=== PATIENT | male | born 1940 | race Caucasian/White ===

== ENCOUNTER 2021-02-17 11:36 | Outpatient (REF) | payer MEDICARE, SELFPAY ==
[2021-02-17 15:34] LABS: HCT 49.4 % (40.0-50.0); HGB 15.9 g/dL (13.5-17.5); MCH 29.7 pg (27.0-33.0); MCHC 32.2 % (32.0-36.0); MCV 92.3 fL (80-95); MPV 10.9 fL (8.0-11.0); Platelet Count 248 10^3/uL (130-400); RBC 5.35 10^6/uL (4.36-5.78); RDW 13.8 % (11.8-14.1); RDW-SD 46.8 fL; WBC 6.06 10^3/uL (4.4-10.8)
[2021-02-17 16:09] LABS: Anion Gap 9.9 mmol/L (3-11); BUN 16 mg/dL (7-18); CO2 24.1 mmol/L (21.0-32.0); Chloride 106 mmol/L (98-107); Glucose 100 mg/dL (74-106); Potassium 4.4 mmol/L (3.5-5.1); Sodium 140 mmol/L (136-145)
== END 2021-02-17 11:37 | disposition home or self-care (01) ==
LOC: NCHCN 11:36
PROVIDERS: PCP Internal Medicine; Visit Provider Family Medicine
DX: E66.3 Overweight (principal); Z00.00 Encounter for general adult medical examination without abnormal findings; Z79.01 Long term (current) use of anticoagulants
CPT/HCPCS: 80048; 85027

== ENCOUNTER 2022-02-18 13:21 | Outpatient (REF) | payer MEDICARE, SELFPAY ==
[2022-02-18 14:31] LABS: HCT 48.8 % (40.0-50.0); HGB 16.4 g/dL (13.5-17.5); MCH 31.4 pg (27.0-33.0); MCHC 33.6 % (32.0-36.0); MCV 94 fL (80-95); MPV 11.5 fL (8.0-11.0); Platelet Count 200 10^3/uL (130-400); RBC 5.22 10^6/uL (4.36-5.78); RDW 13.7 % (11.8-14.1); RDW-SD 47.8 fL; WBC 4.57 10^3/uL (4.4-10.8)
[2022-02-18 14:49] LABS: Anion Gap 6.9 mmol/L (3-11); BUN 16 mg/dL (7-18); CO2 27.1 mmol/L (21.0-32.0); CREATININE 1.1 mg/dL (0.70-1.30); Calcium 9.5 mg/dL (8.5-10.1); Chloride 104 mmol/L (98-107); Estimated GFR 66.61 (mL/min/1.73m2); Glucose 117 mg/dL (74-106); Potassium 4.4 mmol/L (3.5-5.1); Sodium 138 mmol/L (136-145)
== END 2022-02-18 13:22 | disposition home or self-care (01) ==
LOC: NCHCN 13:21
PROVIDERS: PCP Internal Medicine; Visit Provider Family Medicine
DX: Z95.2 Presence of prosthetic heart valve (principal); Z79.01 Long term (current) use of anticoagulants
CPT/HCPCS: 80048; 85027

== ENCOUNTER 2022-08-17 10:13 | Outpatient (REF) | payer MEDICARE, SELFPAY ==
[2022-08-17 16:04] LABS: HCT 48.4 % (40.0-50.0); HGB 16.1 g/dL (13.5-17.5); MCH 31.4 pg (27.0-33.0); MCHC 33.3 % (32.0-36.0); MCV 94 fL (80-95); MPV 11.6 fL (8.0-11.0); Platelet Count 153 10^3/uL (130-400); RBC 5.13 10^6/uL (4.36-5.78); RDW-SD 48.8 fL; WBC 2.55 10^3/uL (4.4-10.8)
[2022-08-17 16:47] LABS: Anion Gap 8.3 mmol/L (3-11); BUN 20 mg/dL (7-18); CO2 26.7 mmol/L (21.0-32.0); CREATININE 1.1 mg/dL (0.70-1.30); Calcium 9.2 mg/dL (8.5-10.1); Chloride 105 mmol/L (98-107); Estimated GFR 66.61 (mL/min/1.73m2); Glucose 128 mg/dL (74-106); Potassium 4.6 mmol/L (3.5-5.1); Sodium 140 mmol/L (136-145)
== END 2022-08-17 10:14 | disposition home or self-care (01) ==
LOC: NCHCN 10:13
PROVIDERS: PCP Internal Medicine; Visit Provider Family Medicine
DX: K04.7 Periapical abscess without sinus (principal); Z00.00 Encounter for general adult medical examination without abnormal findings; Z79.01 Long term (current) use of anticoagulants; Z95.2 Presence of prosthetic heart valve
CPT/HCPCS: 80048; 85027

== ENCOUNTER 2023-07-19 08:15 | Emergency (ER) | payer MEDICARE, SELFPAY ==
[2023-07-19] VITALS (66 sets, daily range): BP systolic 109–186; BP diastolic 50–88; PULSE 77–104; RESP 13–30; TEMP 36.1–36.7; O2SAT 95–100
--- NOTE | 2023-07-19 08:15 | RT.EKG_ITS ---
APPROVED REPORT Exam: Resting ECG Reason for Exam: palpitations Patient Location: E HR:100 bpm ECG Measurements Heart Rate 100 AXIS DC 200 P -43 QRSd 81 QRS 12 QT 328 T 123 QTc 421 Conclusion Sinus rhythm...normal P axis, V-rate 60- 99 Atrial premature complex...SV complex w/ short R-R interval sinus tachycardia, normal axis, normal intervals, st depressions and t wave inversions lateral leads
--- NOTE | 2023-07-19 08:30 | DI.RAD_ITS ---
Exam(s) XR CHEST 2V PA LATERAL EXAM: XR CHEST 2V PA LATERAL CLINICAL HISTORY: dyspnea on exertion, hx aortic valve replacement TECHNIQUE: 2D digital imaging was performed. Two views. COMPARISON: No exams were available for comparison FINDINGS: HEART: Normal size. Aorta: Not dilated. Mildly tortuous. Valve prosthesis. PULMONARY VASCULATURE: Normal. LUNGS: Clear. PLEURAL SPACE: No pleural effusion or pneumothorax. Calcified pleural plaques. BONE:Sternal wires. Degenerative changes in the spine. No compression fractures. Soft tissues: Unremarkable. IMPRESSION: No acute abnormality. DATA REPOSITORY: RADIATION DOSE DELIVERED:
--- NOTE | 2023-07-19 08:38 | ED.GENADUL_ITS ---
Discharge Plan Disposition Patient Disposition: Home Condition: Improving Discharge Details Clinical Impression: Anemia, Upper GI bleed Primary Care Provider: Rafiq El ED Provider: Terry Hanley Home Meds and New Rx's Prescriptions: New pantoprazole 40 mg tablet,delayed release (DR/EC) 40 mg PO DAILY Qty: 30 0RF No Action warfarin 5 mg tablet 5 mg PO Q OTHER DAY Rx Instructions: M//F 7mg Mcnulty/T//Sa 5mg Discharge Instructions Instructions: Gastrointestinal Bleeding (ED), Anemia (ED) Additional Instructions: Please follow-up with your primary care physician as well as gastroenterology. Return to the emergency department for any worsening symptoms HPI General Date/Time Provider Initiated Documentation: 07/19/23 08:28 . 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 Denies leg pain or swelling, no history of thromboembolic disease Related Data Home Medications Medication Instructions Recorded Confirmed warfarin 5 mg tablet 5 mg PO Q OTHER DAY 06/30/23 07/19/23 pantoprazole 40 mg tablet,delayed 40 mg PO DAILY #30 tabs 07/19/23 release Previous Rx's Medication Instructions Recorded pantoprazole 40 mg tablet,delayed 40 mg PO DAILY #30 tabs 07/19/23 release Allergies Allergy/AdvReac Type Severity Reaction Status Date / Time PEACH SKINS AdvReac Other (See Uncoded 07/19/23 10:12 Comment) General Stated Complaint: Chest Pain WILBERT: 3 Review of Systems Narrative: Review of Systems Constitutional: negative Eyes: negative ENT: negative Cardiovascular: Exertional dyspnea Respiratory: negative Gastrointestinal: negative : negative Musculoskeletal: negative Skin: negative Neurologic: negative Psych: negative Exam Narrative Exam Narrative: Physical Examination General: alert, awake, cooperative, resting comfortably, no acute distress HEENT: normocephalic, atraumatic; PERRL, EOM intact, conjunctiva normal; no nasal discharge; moist mucous membranes, oral and pharyngeal mucosa normal, tolerating secretions Neck: supple, trachea midline; full ROM Chest: normal to inspection Respiratory: normal respiratory effort, speaking in full sentences, clear to auscultation, no wheezing, rales or rhonchi Cardiac: regular rate, regular rhythm, S1S2 intact, no murmurs rubs or gallops GI: abdomen soft, non-tender, non-distended; no palpable mass or hepatosplenomegaly Skin: no lesions, rashes or trauma appreciated Neuro: AAOx3, normal speech, moving all extremities Extremities: Mild edema to bilateral ankles nonpitting Psych: Appropriate mood and affect Course Vital Signs Vital signs: Vital Signs Pulse 101 H 07/19/23 08:24 Blood Pressure 154/77 H 07/19/23 08:24 Pulse Oximetry 100 07/19/23 08:24 Pulse 101 H 07/19/23 08:24 Blood Pressure 154/77 H 07/19/23 08:24 Blood Pressure Position Sitting 07/19/23 08:24 Pulse Oximetry 100 07/19/23 08:24 Oxygen Delivery Method Room Air 07/19/23 08:24 Oxygen Flow Rate 0 07/19/23 08:24 Medical Decision Making 82-year-old male history of aortic valve replacement mechanical, 35 years ago presents with exertional dyspnea over the last couple of weeks, improved with rest, denies orthopnea, mild bilateral ankle swelling noted on examination, no history of thromboembolic disease, no chest pain or shortness of breath no nausea no vomiting. Patient did have some left shoulder discomfort with activity over the last couple of days. Consider ACS versus CHF versus mechanical valve dysfunction low suspicion for PE or aortic pathology lower suspicion for pneumonia or pneumothorax. Will obtain basic labs troponin BNP, chest x-ray, echocardiogram in department, EKG sinus tachycardia normal axis with ST segment depressions and T wave inversions laterally. Disposition pending reassessment and results 11: 01 patient noted to be anemic to 6.4. Patient does endorse some dark bowel movement over the last few days. Consider slow upper GI bleed. Patient sent for CT abdomen pelvis which showed diverticulosis without definitive source of bleeding, patient will likely benefit from outpatient GI evaluation for endoscopy. Will transfuse 2 units PRBC, patient consent obtained at bedside. Pending bedside echo and reassessment after transfusion consider home with close follow-up 14: 54 resting comfortably no acute distress. Vital signs greatly improved. Coloration greatly improved. No abdominal pain nausea or vomiting. Patient be given referral for GI follow-up. Will start patient on PPI. 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 ear (Acute) Sensorineural hearing loss (SNHL) of right ear with restricted hearing of left ear (Acute) Sensorineural hearing loss of combined sites, bilateral (Acute 08/03/16) Medical History (Updated 07/19/23 @ 14:56 by Terry Hanley MD) diverticulosis adenoma colon polyp Prosthetic Aortic Valve Overweight Hearing loss bilat Surgical History (Updated 01/12/13 @ 13:10 by Gunjan Desai LPN) redo of aortic valve hernia/hydrocele repair Appendectomy Aortic valve replaced Social History Smoking/Tobacco Use Status: Current-Occasional Smoking risk assessment performed?: Yes Drug use: Never Housing: house Do you feel safe at home: Yes Do you feel safe in your relationship?: Yes
[2023-07-19] MEDS: Aspirin 81 MG CHEW 324 MG CH (08:50)
[2023-07-19 08:51] LABS: Abs Immature Grans 0.06 10^3/uL (0.0-0.06); Absolute Basophil Count 0.01 10^3/uL (0.0-0.2); Absolute Lymphocyte Count 0.92 10^3/uL (1.2-3.4); Absolute Monocyte Count 0.12 10^3/uL (0.1-0.8); Basophils % 0.4 %; HCT 21.4 % (40.0-50.0); Immature Grans % 2.4 %; Lymphocytes % 36.7 %; MCH 31.2 pg (27.0-33.0); MCHC 29.9 % (32.0-36.0); MCV 104 fL (80-95); MPV 10.8 fL (8.0-11.0); Monocytes % 4.8 %; Neutrophils % 55.7 %; Nucleated RBC 0.8 % (0.0-0.3); RBC 2.05 10^6/uL (4.36-5.78); RDW 17.5 % (11.8-14.1); RDW-SD 65.9 fL; WBC 2.51 10^3/uL (4.4-10.8)
[2023-07-19 09:03] LABS: INR 3.7 (0.9-1.1); PTT Activated 31.2 sec (23.6-32.8); Prothrombin Time 33.3 sec (9.1-11.1)
[2023-07-19 09:06] LABS: Anisocytosis 1+; Diff Comment Diff Reviewed; HGB 6.4 g/dL (13.5-17.5)
[2023-07-19 09:07] LABS: Hypochromasia 1+; Platelet Count 97 10^3/uL (130-400); Polychromasia Present
[2023-07-19 09:10] LABS: ALT 20 U/L (16-63); AST 21 U/L (15-37); Albumin 3.5 g/dL (3.4-5.0); Alkaline Phosphatase 55 U/L (46-116); Anion Gap 8.8 mmol/L (3-11); BUN 39 mg/dL (7-18); Bilirubin, Total 0.7 mg/dL (0.2-1.0); CO2 23.2 mmol/L (21.0-32.0); CREATININE 1.4 mg/dL (0.70-1.30); Calcium 8.4 mg/dL (8.5-10.1); Chloride 109 mmol/L (98-107); Estimated GFR 49.56 (mL/min/1.73m2); Glucose 126 mg/dL (74-106); NT-proBNP 294 pg/mL (<300); Sodium 141 mmol/L (136-145); Total Protein 6.4 g/dL (6.4-8.2)
[2023-07-19] MEDS: Omnipaque 350 MG/ML 100 ML BTL IJ (09:43)
[2023-07-19] MEDS: Normal Saline - Diluent 50 ML VIAL IJ (09:44)
--- NOTE | 2023-07-19 09:50 | DI.CT_ITS ---
Exam(s) CT ABDOMEN PELVIS W EXAM: CT ABDOMEN PELVIS W CLINICAL HISTORY: gi bleed on coumadin. TECHNIQUE: Imaging Protocol: Axial computed tomography images with coronal and sagittal reformatted images were created and reviewed CONTRAST MATERIAL: Intravenous: Omnipaque 350 Contrast volume:100 ml Oral: yes / COMPARISON: No exams were available for comparison FINDINGS: ABDOMEN and PELVIS: Lung Bases: No acute findings. Calcified pleural plaques. Mild peripheral fibrotic changes Liver: Normal density. No suspicious mass. Gallbladder and biliary tract: No radiodense calculus. No biliary dilation. Pancreas: Normal density. No abnormal calcifications or inflammatory process. No evidence of mass. Spleen: Normal. Kidneys: Normal size, contour and axis. No radiodense stones. No obstructive uropathy. No suspicious masses seen. Adrenal glands: No masses seen. Vasculature: Abdominal aorta non-dilated. Atherosclerotic changes. Soft tissues: Small bilateral fatty containing inguinal hernias. Tiny fatty containing umbilical hernia. Bladder: No gross wall thickening. No calculi.No focal mass. Bilateral bladder diverticula. Bowel: No obstruction. No bowel wall thickening. Appendix normal.Mild diverticulosis. No evidence diverticulitis. Moderate quantity of stool, greatest in rectum. No visible GI bleed.. Peritoneal cavity: No ascites. No focal collection. No mesenteric inflammatory response. Bones: Degenerative changes in the spine. Reproductive organs: Prostate mildly enlarged Lymph nodes: No pathologically enlarged lymph nodes. IMPRESSION:: Diverticulosis. No evidence of diverticulitis. No source of GI bleed visible. RADIATION DOSE DELIVERED: 929.73mGy.cm Total DLP DATA REPOSITORY: All CT scans at this facility are submitted to the National Radiology Data Registry (NRDR) Dose Index Registry (DIR) with the [employer] (ACR). RADIATION OPTIMIZATION: All CT scans at this facility use at least one of these dose optimization te chniques: automated exposure control; mA and/or kV adjustment per patient size (includes targeted exa ms where dose is matched to clinical indication); or iterative reconstruction.
[2023-07-19] MEDS: Pantoprazole 40 MG VIAL IVP (10:26)
--- NOTE | 2023-07-19 11:00 | DI.US_ITS ---
APPROVED REPORT EXAM: Comprehensive 2D, Doppler, and color-flow Echocardiogram Patient Location: ER Room/Bed: 7 Biometrics Experimentalist: Hudson García RDCS (AE) Indications: Dyspnea on exertion, hx of aortic valve replacement Other Information Technically limited study due to body habitus. Conclusion Normal left ventricular wall thickness chamber size and systolic function. EF is 60%. No segmental wall motion abnormalities are noted Right ventricle is not well-visualized Both atria are moderately dilated There is a mechanical aortic valve prosthesis. There is trace to mild aortic regurgitation. Mean gr adient is 21 mmHg Mitral annular calcification. Mild mitral regurgitation Dilated aortic root and ascending aorta Wall motion Left Ventricle The left ventricle is grossly normal size. Unable to perform measurements due to the vertical orienta tion of the ventricle. The left ventricular systolic function is normal. The left ventricular ejectio n fraction is within the normal range. Unable to assess LV wall thickness. There is no ventricular se ptal defect visualized. LVEF is 60%. Right Ventricle Right ventricle is not well visualized. Right ventricular systolic function could not be assessed. Atria Left atrium is moderately dilated. Right atrium is moderately dilated. The interatrial septum is inta ct with no evidence for an atrial septal defect. Aortic Valve Mechanical aortic valve is present. Trace to mild aortic regurgitation. Mitral Valve Moderate mitral annular calcification. No evidence of mitral valve stenosis. Mild mitral regurgitatio n. Tricuspid Valve The tricuspid valve is normal in structure. There is no tricuspid valve stenosis. Trace tricuspid reg urgitation. Unable to assess PA pressure. Pulmonic Valve Pulmonic valve is not well visualized. There is no pulmonic valvular regurgitation. Great Vessels Aortic root is moderately dilated. The ascending aorta is dilated. 4.53 cm Aortic arch is not well vi sualized. IVC is normal in size and collapses >50% with inspiration. Pericardium There is no pericardial effusion. 2D Dimensions Ao Root d 4.02 cm M: 3.1 - 3.7 Ao Asc Diam d 4.53 cm M: 2.6 - 3.4 M-Mode TAPSE 1.81 cm (M/F) >1.7 Auto EF LV EDV A4C 129.3 mL LV EDV A2C 102.0 mL LV EDV BP 115.2 mL LV ESV A4C 54.0 mL LV ESV A2C 41.3 mL LV ESV BP 46.2 mL LVEF(%) A4C 58.3 % LVEF(%) A2C 59.5 % LVEF(%) BP 59.9 % LV SV A4C 75.4 ml LV SV A2C 60.7 ml LV SV BP 69.1 ml LV CO A4C 6.7 L/min LV CO A2C 5.3 L/min LV CO BP 6.0 L/min HR A4C 88.24 BPM HR A2C 87.38 BPM LV EDV Index (BP) LA Volume LA Length A4C 4.9 cm LA Length A2C 6.2 cm LA Area A4C s 18.39 cm2 LA Area A2C s 17.45 cm2 LA Vol A4C A-L 58.50 mL LA Vol A2C A-L 41.46 mL LA Vol Biplane A-L 55.5 mL LA Vol/BSA A4C A-L LA Vol/BSA A2C A-L LA Vol/BSA BP A-L 27.1 mL/m2 LA Vol A4C MOD 48.0 mL LA Vol A2C MOD 40.6 mL LA Vol BP MOD 48.9 mL RA Volume RA Area A4C 16.4 cm2 RA ESV A4C (A-L) 45.0mL RA Vol/BSA A4C A-L RA Length A4C 5.0 cm RA ESV A4C (MOD) 44.4mL LV Diastology MV E' medial 0.082 (>0.07 m/s) MV E Vmax 1.25 (0.4-1.3 m/s) MV E/E' MED 15.34 (<14) MV A Vmax 1.30 (0.4-1.3 m/s) MV E' lateral 0.092 (>0.1 m/s) E/A Ratio 1.0 MV E/E' LAT 13.57 (<14) MV E' Average 0.087 m/s MV E/E'(average) 14.40 Aortic Valve AoV Vmax 3.09 m/s LVOT Vmax 1.11 m/s AoV Peak Grad 38.2 mmHg LVOT Peak Grad 4.9 mmHg AoV Area (Vmax) 1.38 cm2 LVOT VTI 0.269 m AoV VTI 0.702 m LVOT Mean Grad 2.9 mmHg AoV Mean Wil. 2.16 m/s LVOT SV 102.95 mL AoV Mean Grad 21.4 mmHg LVOT Diam s 2.20 cm AoV Area (VTI) 1.47 cm2 Velocity Ratio 0.36 Mitral Valve MV DT 258 (160-240 msec) MV Vmax TIPS 1.39 m/s MV Mean Grad 4.3 (<2mmHg) MV VTI 0.434 m Pulmonary Valve RVOT Vmax 0.65 m/s RVOT Peak Gr. 1.7 mmHg RVOT VTI 0.127 m RVOT Mean Gr. 0.9 mmHg
[2023-07-19 11:51] LABS: Troponin I < 50 ng/L (< or =60)
--- NOTE | 2023-07-20 11:37 | NUR.NOTE ---
Addendum entered by Amanda Arboleda 07/20/23 12:59: Patients called stating that she could not get an appt with [facility] without referral. I spoke with Dr. Millan and he does want pt followed up there and next week if possible. I had DI send all the imaging done on 07/19/23 to [facility] for the referral. I faxed to [facility] the provider note, labs, xray and CT reports, and echo report. It was marked URGENT. I called the back and she is aware that this has been done. [facility] Urgent request fax number [phone] Original Note: Accessed chart, called stating cannot get in to [facility] without referral. Will talk to Dr Millan regarding this. Nursing Note:
== END 2023-07-19 15:49 | disposition home or self-care (01) ==
PROVIDERS: Emergency Provider Emergency Medicine; PCP Family Medicine
DX: K92.2 Gastrointestinal hemorrhage, unspecified (principal); D64.9 Anemia, unspecified; M25.512 Pain in left shoulder; Z86.79 Personal history of other diseases of the circulatory system; R06.09 Other forms of dyspnea; R22.43 Localized swelling, mass and lump, lower limb, bilateral
CPT/HCPCS: 80053; 86850; 86900; 86901; 86920; 93005; 93306; 96374; 99285; 71046; 74177; 83880; 84484; 85025; 85610; 85730; 93010; 99283; J2470; J3490; P9016

== ENCOUNTER 2023-07-21 18:46 | Inpatient (IN) | payer MEDICARE, SELFPAY ==
[2023-07-21] VITALS (68 sets, daily range): BP systolic 113–186; BP diastolic 54–142; PULSE 83–119; RESP 12–30; TEMP 36.3–37.1; O2SAT 94–997
--- NOTE | 2023-07-21 18:15 | RT.EKG_ITS ---
APPROVED REPORT Exam: Resting ECG Reason for Exam: Neck, Jaw pain Patient Location: E HR:101 bpm ECG Measurements Heart Rate 101 AXIS SD 198 P -41 QRSd 82 QRS 16 QT 320 T 203 QTc 415 Conclusion Sinus tachycardia...rate> 99 Atrial premature complex...SV complex w/ short R-R interval Repol abnrm suggests ischemia, diffuse leads...ST-T neg, ant/lat/inf sinus tachycardia, normal axis, normal intervals, ST segment depressions II aVF, V3-V6, with elevatio n aVR
--- NOTE | 2023-07-21 18:45 | DI.RAD_ITS ---
Exam(s) XR PORTABLE CHEST AP EXAM: XR PORTABLE CHEST AP CLINICAL HISTORY: Chest Pain TECHNIQUE: 2D digital imaging was performed of the chest. One image was obtained. An AP view was ob tained. COMPARISON: CR XR CHEST 2V PA LATERAL from 07/19/2023 FINDINGS: MEDIASTINUM: Normal. HEART: There is an aortic valve prosthesis in place. PULMONARY VASCULATURE: Normal. LUNGS: Clear. PLEURAL SPACE: No pleural effusion or pneumothorax. Calcified pleural and diaphragmatic plaques are p resent. BONE:Within normal limits for the patient's age. Sternal wires are present. OTHER FINDINGS:Normal. IMPRESSION: No acute pulmonary findings. DATA REPOSITORY: RADIATION DOSE DELIVERED:
--- NOTE | 2023-07-21 18:45 | RT.EKG_ITS ---
APPROVED REPORT Exam: Resting ECG Reason for Exam: Posterior Patient Location: E HR:102 bpm ECG Measurements Heart Rate 102 AXIS MN 198 P 104 QRSd 79 QRS 38 QT 341 T 2 QTc 445 Conclusion Sinus tachycardia...rate> 99 sinus tachycardia, normal axis, consider st seg elevations III aVR, and depressions aVL
--- NOTE | 2023-07-21 18:53 | ED.GENADUL_ITS ---
Discharge Plan Disposition Patient Disposition: Admit to [facility] Condition: Stable Discharge Details Clinical Impression: Anemia, Upper GI bleed Admit Date/Time: 07/21/23 22:33 Admit Provider: Kian Stacy Attending Provider: Kian Stacy Primary Care Provider: Rafiq El ED Provider: Jeannie Stratton Discharge Data Discharge Date/Time-TO BE ENTERED AT DEPARTURE: 07/22/23 00:50 HPI General Mode of arrival: EMS . Date/Time Provider Initiated Documentation: 07/21/23 18:46 . Limitations to Documentation: no limitations . Information obtained by: patient, RN notes reviewed and old records reviewed . HPI Narrative: 82-year-old male presents to the ER via EMS with chief complaint of left shoulder pain with exertion that radiates up into his left jaw that he describes as tooth pain for the last 2 weeks he was seen here 2 days ago for the same and was noted to have anemia with a hemoglobin of 6 received 2 units of blood. Patient is on Coumadin he reports that laying down makes his symptoms get better. He does take warfarin does have a history of a prosthetic aortic valve, diverticulosis and hearing loss, prior to arrival EMS got a twelve-lead which showed some ST depressions in V4 through V6 that were worse after exertion. Related Data Home Medications Medication Instructions Recorded Confirmed warfarin 5 mg tablet 5 mg PO Q OTHER DAY 06/30/23 07/21/23 pantoprazole 40 mg tablet,delayed 40 mg PO DAILY #30 tabs 07/19/23 07/21/23 release Previous Rx's Medication Instructions Recorded pantoprazole 40 mg tablet,delayed 40 mg PO DAILY #30 tabs 07/19/23 release Allergies Allergy/AdvReac Type Severity Reaction Status Date / Time PEACH SKINS AdvReac Other (See Uncoded 07/19/23 10:12 Comment) General Stated Complaint: SOB WILBERT: 3 Review of Systems All systems reviewed & are unremarkable except as noted in HPI and below Cardiovascular Cardiovascular: Reports chest pain and Reports radiating jaw, neck or arm pain Gastrointestinal Gastrointestinal: Denies abdominal pain, Reports melena, Reports constipation and Denies vomiting Musculoskeletal Musculoskeletal: Reports back pain Exam Narrative Exam Narrative: Constitutional: Alert and oriented x3. Appears stated age. Normal body habitus. Head: Normocephalic, no trauma. Eyes: Pupils PERRL, Red reflex noted, EOM's intact. Eyelids symmetrical without lesions, discharge, or swelling. ENT: Bilateral TM's WNL, External ear normal to inspection, no mastoid TTP, swelling, or erythema, Nasal turbinates WNL, no nasal discharge. Normal dentition, Posterior pharynx WNL, no exudate. Chest: RRR, Normal S1, S2, distal pulses intact. Resp: Lungs clear to auscultation bilaterally, no wheezes, rales, or rhonchi. Abdomen: Soft, non-distended, Normoactive bowel sounds all 4 quads. Musculoskeletal: Unable to assess gait moves all 4 extremities without difficulty. Skin: No suspicious rashes or lesions. Capillary refill less than 2 sec. Neurologic: Cranial nerves II-XII intact. Alert and oriented x 3. Motor: No deficits noted. Sensory: Intact bilaterally all 4 extremities. Hematologic/Lymphatic: No ecchymosis, no lymphadenopathy. Course Vital Signs Vital signs: Vital Signs Temperature 36.3 C L 07/21/23 18:47 Pulse 107 H 07/21/23 18:47 Respiratory Rate 16 07/21/23 18:47 Blood Pressure 186/142 H 07/21/23 18:47 Pulse Oximetry 98 07/21/23 18:47 Temperature 36.3 C L 07/21/23 18:47 Temperature Source Oral 07/21/23 18:47 Pulse 107 H 07/21/23 18:47 Respiratory Rate 16 07/21/23 18:47 Blood Pressure 186/142 H 07/21/23 18:47 Pulse Oximetry 98 07/21/23 18:47 Oxygen Delivery Method Room Air 07/21/23 18:47 Oxygen Flow Rate 0 07/21/23 18:47 Pain Level 4 07/21/23 18:47 Procedures Stool Hemoccult Procedural Steps Taken: stool placed in appropriate test area, developer placed on stool and control areas and controls appropriately positive and negative Hemoccult result: positive Medical Decision Making 82-year-old male presents to the ER via EMS with chief complaint of left shoulder pain with exertion that radiates up into his left jaw that he describes as tooth pain for the last 2 weeks he was seen here 2 days ago for the same and was noted to have anemia with a hemoglobin of 6 received 2 units of blood. Patient is on Coumadin he reports that laying down makes his symptoms get better. He does take warfarin does have a history of a prosthetic aortic valve, diverticulosis and hearing loss, prior to arrival EMS got a twelve-lead which showed some ST depressions in V4 through V6 that were worse after exertion. EKG was reviewed by myself and Dr. Arik Martinez ER attending, significant ischemic ST depression changes noted to V4 V5 V6 lead II lead II and aVF. ST elevation in aVR will get a posterior EKG. Posterior EKG shows sinus tachycardia no significant ST elevation or abnormality I do suspect lateral ischemia. Patient does not qualify for thrombolysis due to being on warfarin usually takes it at night has not taken it yet today did take it yesterday. He is also hypertensive upon arrival. EKG is faxed to [facility] will speak with cardiology for possible patient transferred. 324 mg aspirin ordered. 1903: [facility] Transfer center contacted, will consider nitro however there is st depressions in II, III and AVF and inferior leads. Hbg is 6.1, Hct 19.[address] [facility] notified that GI will also most likley be needed. Guaiac positive, no grossly bloody stool noted no active bleeding noted. Does have some soft brown stool, he did endorse black dark stools. 1928: Dr. Coco Mejia she is concerned for multilevel disease or left main disease, however because he is having acute GI bleeding she recommends GI consult first and that this may be due to the anemia. PRBC 2 units ordered, GI at [facility] paged. 1942: Dr. Avila with GI called, she recommends Iron studies and does not recommend urgent or emergent scoping at this time, she does not give any other recommendations at this time. 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 Will page Hospitalist 2032: Spoke with Dr. Zambrano who recommends discuss with [facility] Hospitalist team due to high risk patient who may require heparin, and specialty scope. He reports surgery here most likely will not touch him. 2043: [facility] transfer center contacted again 2156: [facility] transfer center called, spoke with Hospitalist Kay, he states that if he is not actively bleeding, is stable that at this time he can be managed here, will re-discuss with Dr. Laguerre. 2211: Spoke with Dr. Zambrano again who agrees to accept patient for admission. Patient and family, they would rather be transferred to a tertiary care center for GI. At this time there is nothing other than consult with GI specialist that would be required tonight. Discussed at length with patient and family plan of care, at this time patient is hemodynamically stable and receiving blood products. This text was generated using [employer] system, please disregard any oddities of phrase or missp ellings. Medical Records Medical records reviewed: Yes I reviewed the patient's medical records. Medical records narrative: CR XR CHEST 2V PA LATERAL 07/19/2023 9:31 AM FINDINGS: Tubes, catheters and devices: Monitoring wires are present. Lungs: No consolidation. No vascular congestion. Pleural spaces: Calcified pleural plaques are noted bilaterally. No pleural effusion. No pneumothorax. Heart/Mediastinum: Mild cardiomegaly. Aortic valve replacement noted. Bones/joints: Sternotomy wires noted. IMPRESSION: No acute cardiopulmonary abnormality. Thank you for allowing us to participate in the care of your patient. Dictated and Authenticated by: Chong Ash MD Lab Data Lab results reviewed: Yes I reviewed the patient's lab results. Labs: Laboratory Tests Range/Units 07/21/23 07/21/23 07/21/23 18:50 18:52 19:28 WBC (4.4-10.8) 10^3/uL 3.86 L RBC (4.36-5.78) 10^6/uL 1.93 L Hgb (13.5-17.5) g/dL 6.1 L* Hct (40.0-50.0) % 19.7 L* MCV (80-95) fL 102 H MCH (27.0-33.0) pg 31.6 MCHC (32.0-36.0) % 31.0 L RDW (11.8-14.1) % 18.7 H Plt Count (130-400) 10^3/uL 94 L MPV (8.0-11.0) fL 10.7 Immature Gran % % 2.1 Neutrophils % % 57.2 Lymphocytes % % 36.0 Monocytes % % 4.4 Eosinophils % % 0.3 Basophils % % 0.0 Nucleated RBC % (0.0-0.3) % 1.0 H Absolute Neutrophils (1.2-6.7) 10^3/uL 2.21 Absolute Lymphocytes (1.2-3.4) 10^3/uL 1.39 Absolute Monocytes (0.1-0.8) 10^3/uL 0.17 Absolute Eosinophils (0.0-0.7) 10^3/uL 0.01 Absolute Basophils (0.0-0.2) 10^3/uL 0.00 RBC Morphology See Below Polychromasia Present Hypochromasia 2+ PT (9.1-11.1) sec 40.0 H INR (0.9-1.1) 4.5 H* APTT (23.6-32.8) sec 30.8 Sodium (136-145) mmol/L 144 Potassium (3.5-5.1) mmol/L 4.3 Chloride (98-107) mmol/L 111 H Carbon Dioxide (21.0-32.0) mmol/L 21.6 Anion Gap (3-11) mmol/L 11.4 H BUN (7-18) mg/dL 45 H Creatinine (0.70-1.30) mg/dL 1.4 H Est GFR (CKD-EPI 2020) (mL/min/1.73m2) 49.56 Glucose (74-106) mg/dL 118 H Calcium (8.5-10.1) mg/dL 8.4 L Magnesium (1.8-2.4) mg/dL 2.0 Iron (65-175) ug/dL TIBC (250-450) ug/dL Transferrin % Sat (20-55) % Total Bilirubin (0.2-1.0) mg/dL 0.6 AST (15-37) U/L 16 ALT (16-63) U/L 15 L Alkaline Phosphatase (46-116) U/L 52 Troponin I (< or =60) ng/L < 50 Total Protein (6.4-8.2) g/dL 5.7 L Albumin (3.4-5.0) g/dL 3.2 L Folate (8.6-20.0) ng/mL ABO/Rh B Positive Antibody Screen NEGATIVE Crossmatch See Detail Range/Units 07/21/23 07/21/23 20:00 21:35 WBC (4.4-10.8) 10^3/uL RBC (4.36-5.78) 10^6/uL Hgb (13.5-17.5) g/dL Hct (40.0-50.0) % MCV (80-95) fL MCH (27.0-33.0) pg MCHC (32.0-36.0) % RDW (11.8-14.1) % Plt Count (130-400) 10^3/uL MPV (8.0-11.0) fL Immature Gran % % Neutrophils % % Lymphocytes % % Monocytes % % Eosinophils % % Basophils % % Nucleated RBC % (0.0-0.3) % Absolute Neutrophils (1.2-6.7) 10^3/uL Absolute Lymphocytes (1.2-3.4) 10^3/uL Absolute Monocytes (0.1-0.8) 10^3/uL Absolute Eosinophils (0.0-0.7) 10^3/uL Absolute Basophils (0.0-0.2) 10^3/uL RBC Morphology Polychromasia Hypochromasia PT (9.1-11.1) sec INR (0.9-1.1) APTT (23.6-32.8) sec Sodium (136-145) mmol/L Potassium (3.5-5.1) mmol/L Chloride (98-107) mmol/L Carbon Dioxide (21.0-32.0) mmol/L Anion Gap (3-11) mmol/L BUN (7-18) mg/dL Creatinine (0.70-1.30) mg/dL Est GFR (CKD-EPI 2020) (mL/min/1.73m2) Glucose (74-106) mg/dL Calcium (8.5-10.1) mg/dL Magnesium (1.8-2.4) mg/dL Iron (65-175) ug/dL 28 L TIBC (250-450) ug/dL 244 L Transferrin % Sat (20-55) % 11 L Total Bilirubin (0.2-1.0) mg/dL AST (15-37) U/L ALT (16-63) U/L Alkaline Phosphatase (46-116) U/L Troponin I (< or =60) ng/L 53 Total Protein (6.4-8.2) g/dL Albumin (3.4-5.0) g/dL Folate (8.6-20.0) ng/mL 12.0 ABO/Rh Antibody Screen Crossmatch ECG Data Prior ECG tracings: available for review Quality:[facility] Health Related Social Needs: No Data to Display PFSH All Active Problems H/O mechanical aortic valve replacement (Acute) Discharge planning issues (Acute) 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) Diverticulosis of colon without diverticulitis (Chronic) Acute blood loss anemia (Acute) Exertional chest pain (Acute) Upper GI bleed (Acute) Anemia (Chronic) 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 ear (Acute) Sensorineural hearing loss (SNHL) of right ear with restricted hearing of left ear (Acute) Sensorineural hearing loss of combined sites, bilateral (Acute 08/03/16) Medical History diverticulosis adenoma colon polyp Prosthetic Aortic Valve Overweight Hearing loss bilat Surgical History redo of aortic valve hernia/hydrocele repair Appendectomy Aortic valve replaced Social History Smoking/Tobacco Use Status: Current-Occasional Smoking risk assessment performed?: Yes Drug use: Never Housing: house Do you feel safe at home: Yes Do you feel safe in your relationship?: Yes
[2023-07-21 19:05] LABS: Abs Immature Grans 0.08 10^3/uL (0.0-0.06); Absolute Eosinophil Count 0.01 10^3/uL (0.0-0.7); Absolute Lymphocyte Count 1.39 10^3/uL (1.2-3.4); Absolute Monocyte Count 0.17 10^3/uL (0.1-0.8); Absolute Neutrophil Count 2.21 10^3/uL (1.2-6.7); Eosinophils % 0.3 %; Immature Grans % 2.1 %; MCH 31.6 pg (27.0-33.0); MCV 102 fL (80-95); MPV 10.7 fL (8.0-11.0); Monocytes % 4.4 %; Neutrophils % 57.2 %; RBC 1.93 10^6/uL (4.36-5.78); RDW 18.7 % (11.8-14.1); RDW-SD 66.1 fL; WBC 3.86 10^3/uL (4.4-10.8)
[2023-07-21] MEDS: Aspirin 81 MG CHEW 324 MG CH (19:08)
[2023-07-21 19:10] LABS: HCT 19.7 % (40.0-50.0); HGB 6.1 g/dL (13.5-17.5)
[2023-07-21 19:18] LABS: Diff Comment RBC Morph Reviewed; Platelet Count 94 10^3/uL (130-400)
[2023-07-21 19:19] LABS: Hypochromasia 2+; Polychromasia Present
[2023-07-21 19:25] LABS: ALT 15 U/L (16-63); AST 16 U/L (15-37); Albumin 3.2 g/dL (3.4-5.0); Alkaline Phosphatase 52 U/L (46-116); Anion Gap 11.4 mmol/L (3-11); BUN 45 mg/dL (7-18); Bilirubin, Total 0.6 mg/dL (0.2-1.0); CO2 21.6 mmol/L (21.0-32.0); CREATININE 1.4 mg/dL (0.70-1.30); Calcium 8.4 mg/dL (8.5-10.1); Chloride 111 mmol/L (98-107); Estimated GFR 49.56 (mL/min/1.73m2); Glucose 118 mg/dL (74-106); Potassium 4.3 mmol/L (3.5-5.1); Sodium 144 mmol/L (136-145); Total Protein 5.7 g/dL (6.4-8.2); Troponin I < 50 ng/L (< or =60)
--- NOTE | 2023-07-21 19:31 | NUR.NOTE ---
I WAS ENTERING THE TIME FOR THE FIRST STAT ekg, i accidently putthe wrong time in. the correct time is 18:53.Nursing Note:
[2023-07-21] MEDS: Normal Saline Flush 10 ML SYR IVP (20:00)
--- NOTE | 2023-07-21 20:36 | DI.VRAD_ITS ---
PROCEDURE INFORMATION: Exam: XR Chest Exam date and time: 07/21/2023 7:13 PM Age: 82 years old Clinical indication: Other: Chest pain TECHNIQUE: Imaging protocol: Radiologic exam of the chest. Views: 1 view. COMPARISON: CR XR CHEST 2V PA LATERAL 07/19/2023 9:31 AM FINDINGS: Tubes, catheters and devices: Monitoring wires are present. Lungs: No consolidation. No vascular congestion. Pleural spaces: Calcified pleural plaques are noted bilaterally. No pleural effusion. No pneumothorax. Heart/Mediastinum: Mild cardiomegaly. Aortic valve replacement noted. Bones/joints: Sternotomy wires noted. IMPRESSION: No acute cardiopulmonary abnormality. Dictated and Authenticated by: Chong Ash MD. Ordering:LYNDSEY Dennis MD
[2023-07-21 20:43] LABS: PTT Activated 30.8 sec (23.6-32.8)
[2023-07-21 20:57] LABS: INR 4.5 (0.9-1.1)
--- NOTE | 2023-07-21 21:00 | RT.EKG_ITS ---
APPROVED REPORT Exam: Resting ECG Reason for Exam: Repeat Patient Location: E HR:90 bpm ECG Measurements Heart Rate 90 AXIS MO 217 P -42 QRSd 87 QRS 14 QT 372 T 71 QTc 457 Conclusion Sinus rhythm...normal P axis, V-rate 60- 99 Borderline prolonged MO interval...MO >212, V-rate 50- 90 sinus rhythm, normal axis, nomral intervals. st segment depressions lateral leads
[2023-07-21 21:02] LABS: Iron 28 ug/dL (65-175); Total Iron Binding Capacity 244 ug/dL (250-450); Transferrin Sat 11 % (20-55)
[2023-07-21 21:58] LABS: Troponin I 53 ng/L (< or =60)
--- NOTE | 2023-07-21 22:21 | W.PM.HP.N ---
Date of service: 07/21/23 Time of Service: 22:21 Assessment and Plan Assessment and plan (1) Exertional chest pain: Start date: 07/19/23 Status: Acute Assessment and plan: This is an 82-year-old gentleman with recent exertional symptoms consistent with exertional angina with radiation into the left arm and into the jaw. Has had no previous CAD and is on no aggressive treatment for cardiac disease. He did have a recent exertional symptoms and constipation with black stools but no overt rectal bleeding. His acute anemia most likely is the cause of his exertional symptoms that he has improved with rest and blood transfusion. Is present to the ED, July 19, 2023 when he received 2 units of packed blood cells improved his exertional symptoms when he initially went home. The symptoms returned the day of this admission. He did have EKG changes with ST segment depressions laterally which improved with rest and no dysrhythmia seen on cardiac monitoring. His initial 2 troponins were negative but his third troponin was slightly increased at 103. These will be trended. He does have an elevated PT/INR on Coumadin therapy which is being held for now with his INR at 4.5. He is not on heparin and does have a low platelet count but normal liver function test with no history of alcoholism. He had a normal platelet count in August 2022. His anemia appears acute and his MCV is actually elevated and not low with folate and B12 pending but serum iron and ferritin levels low. His hemoglobin is 16.1 in July 2022. He denies any active bleeding other than black stools with his recent constipation. Imaging did reveal diverticulosis without diverticulitis. Once stabilized with evaluation of his GI bleed source, he can be further evaluated by cardiology with exercise stress test. Recent echocardiogram did reveal preserved left ventricular action fraction and is prosthetic aortic valve appears to be functioning well. He is a full code. (2) Acute blood loss anemia: Start date: 07/19/23 Status: Acute Assessment and plan: Patient appears to be having black stools and diverticulosis on imaging which may be the source of his bleeding though is not having bloody stools but dark stools with a normal BUN not indicating acute upper GI bleed. He is on Protonix chronically. Will be given IV and I will transfuse 1 more unit of packed red blood cells and his hemoglobin increasing only 1 g/dL with 2 units of packed red blood cells after admission through the ED. Follow-up hemoglobin was not performed after his 2 units of packed red blood cells on July 19, 2023 but his exertional symptoms did improve. He has not followed up with gastroenterology which needs to be ordered for the future but presently I will consult general surgery to consider upper and lower endoscopy during this hospitalization. Coumadin will be held for now a may need to be bridged with heparin once his PT/INR is in the range of 2. 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 He has never had severe elevation with the highest being 3.9 in October 2016. He may be getting Coumadin checks through the clinic with fingersticks which are not documented with lab review. (4) Diverticulosis of colon without diverticulitis: Status: Chronic Assessment and plan: This may be a chronic problem patient has never had diverticulitis. Needs to have endoscopy to review his acute GI bleed. (5) H/O prosthetic aortic valve replacement: Status: Chronic Assessment and plan: Patient has had his aortic valve replaced twice, first with a bovine valve and then with mechanical valve he presently has for the last 35 years. Both of these procedures were performed in [place], [place]. History of Present Illness History of Present Illness Chief Complaint: Exertional chest pain with GI bleed and acute blood loss anemia Narrative: This is an 82-year-old male patient with a history of an aortic valve replacement with a bovine valve and an and mechanical valve 35 years ago at [facility] in [place], [place]. He has never had coronary artery disease or angina and is on minimal medications taking only Protonix and Coumadin with therapeutic INR's and no problem with bleeding or anemia in the past. About a week or 2 prior to admission the patient began to do yard work for the spring and was having exertional pressure in his chest and throat with radiation of discomfort into his left arm. He also would be short of breath and this will go away with rest. He was seen in the ED July 19, 2023 was found to be severely anemic with a hemoglobin below 7 and having a transfusion of 2 units of packed red blood cells at that time. He felt better and could do minimal exertional activity without discomfort until just prior to this brief visit to the ED July 21, 2023 with several exertional symptoms. His chest pressure was mostly in his throat and into his jaw. He did not receive nitroglycerin in the ED and was chest pain free at rest. He was not hypoxic. He did have EKG changes with ST depressions in V4 through V6 which began to improve while in the ED and with rest. He did not have a positive troponin x 2 in the ED with a third troponin slightly elevated at 103. He is on cardiac monitoring with sinus rhythm. This time is on the patient he was comfortable at rest with no complaints of discomfort and had received 2 units of packed red blood cells with hemoglobin still below 8 g/dL with his positive troponin bump but not having tachycardia or hypotension. Because of his cardiac risk and PT/INR being elevated on Coumadin with INR at 4.5 upon admission. Coumadin is being held. He did receive full dose aspirin and will receive baby aspirin daily with risk benefits reviewed. He also was placed on high-dose atorvastatin but metoprolol will be held for now because of possible hypotension and the patient not having tachycardia. Also he is chest pain-free and asymptomatic at rest. He does need to see surgery with a history of diverticulosis on imaging but no hematochezia or rectal bleeding seen in the past or present. He was constipated after his visit July 19, 2023 in the ED and did have a large hard stool with black but not tarry. He did have heme positive stools in the ED. The ED provider did call [facility] to discuss case with cardiology and gastroenterology as well as the hospitalist with all referring acute transfer for admission with the patient being hemodynamically stable and negative troponins at the time cardiology and the hospitalist will call. He did not think that he needed emergent endoscopies. He did not think he needed to be on heparin infusion specimen PT/INR elevated. The EKG changes were thought to be from the strain of his anemia and they did improve he was without initiation of the blood transfusion but with rest. General surgery will be consulted in the morning to review the case and possibly plan upper and lower endoscopies at this institution and patient is stable. Cardiology could be consulted as well and long-term patient may need a stress test for evaluation of his symptoms with anemia and exertion prior to this complication. As stated, he has never had a cardiac catheterization or history of CAD. He is a full code. Review of Systems Narrative: 13 point review of systems otherwise unrevealing or stable. Patient has had no peripheral edema and was not diaphoretic with his exertional symptoms. He denies any dizziness or syncope. 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) Diverticulosis of colon without diverticulitis (Chronic) Acute blood loss anemia (Acute) Exertional chest pain (Acute) Upper GI bleed (Acute) Anemia (Chronic) 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 ear (Acute) Sensorineural hearing loss (SNHL) of right ear with restricted hearing of left ear (Acute) Sensorineural hearing loss of combined sites, bilateral (Acute 08/03/16) Medical History diverticulosis adenoma colon polyp Prosthetic Aortic Valve Overweight Hearing loss bilat Surgical History redo of aortic valve hernia/hydrocele repair Appendectomy Aortic valve replaced Social History Smoking/Tobacco Use Status: Current-Occasional Smoking risk assessment performed?: Yes Drug use: Never Housing: house Do you feel safe at home: Yes Do you feel safe in your relationship?: Yes Meds Allergies and Home Medications Allergies Allergy/AdvReac Type Severity Reaction Status Date / Time PEACH SKINS AdvReac Other (See Uncoded 07/19/23 10:12 Comment) Home Medications Medication Instructions Recorded Confirmed Type warfarin 5 mg tablet 5 mg PO Q OTHER DAY 06/30/23 07/21/23 History pantoprazole 40 mg tablet,delayed 40 mg PO DAILY #30 tabs 07/19/23 07/21/23 Rx release Exam Narrative Exam Narrative: General: Patient appears appropriate for age, moderately obese, alert and oriented x 3 and in no acute distress. HEENT: Normocephalic, eyes with pupils equal and reactive to light symmetrically, extraocular movement tachycardia sclera anicteric. Oropharynx with moist mucosa. Neck: Supple without JVD. Back: Fully stooped posture without CVA tenderness. Lungs: Fair aeration and clear to auscultation percussion with no focalizing rales or rhonchi. No expiratory wheeze. Heart: Regular rate and rhythm with 3/6 to 4/6 systolic murmur left arm warm with sternal scar. No gallops or rubs. Abdomen: Obese contour, soft and nontender to palpation no palpable hepatosplenomegaly. No guarding and left lower quadrant and no rebound. Bowel sounds positive in all quadrants. Genitalia/rectal: Exam deferred. Patient did have rectal exam revealing heme positive stools in the ED. Extremities: Without clubbing, cyanosis or pitting edema. Slight nonpitting edema over ankles. Good capillary refill. Skin: Pale, warm and dry. No bruising. Neuro: Cranial nerves II through XII gross intact with patient hard of hearing, no focalizing motor deficits. No tremor. Psych: Normal affect and mood. No abnormal thought processes. Remote and recent memory grossly intact. Results Imaging Imaging Studies: Exam: XR Chest Exam date and time: 07/21/2023 7:13 PM Age: 82 years old Clinical indication: Other: Chest pain TECHNIQUE: Imaging protocol: Radiologic exam of the chest. Views: 1 view. COMPARISON: CR XR CHEST 2V PA LATERAL 07/19/2023 9:31 AM FINDINGS: Tubes, catheters and devices: Monitoring wires are present. Lungs: No consolidation. No vascular congestion. Pleural spaces: Calcified pleural plaques are noted bilaterally. No pleural effusion. No pneumothorax. Heart/Mediastinum: Mild cardiomegaly. Aortic valve replacement noted. Bones/joints: Sternotomy wires noted. IMPRESSION: No acute cardiopulmonary abnormality. EXAM: Comprehensive 2D, Doppler, and color-flow Echocardiogram Date of Exam: 07/19/23 Patient Location: ER Room/Bed: 7 [employer]: Hudson García RDCS (AE) Indications: Dyspnea on exertion, hx of aortic valve replacement Other Information Technically limited study due to body habitus. Conclusion Normal left ventricular wall thickness chamber size and systolic function. EF is 60%. No segmental wall motion abnormalities are noted Right ventricle is not well-visualized Both atria are moderately dilated There is a mechanical aortic valve prosthesis. There is trace to mild aortic regurgitation. Mean gradient is 21 mmHg Mitral annular calcification. Mild mitral regurgitation Dilated aortic root and ascending aorta EXAM: CT ABDOMEN PELVIS W Date of Exam: 07/19/23 CLINICAL HISTORY: gi bleed on coumadin. TECHNIQUE: Imaging Protocol: Axial computed tomography images with coronal and sagittal reformatted images were created and reviewed CONTRAST MATERIAL: Intravenous: Omnipaque 350 Contrast volume:100 ml Oral: yes / COMPARISON: No exams were available for comparison FINDINGS: ABDOMEN and PELVIS: Lung Bases: No acute findings. Calcified pleural plaques. Mild peripheral fibrotic changes Liver: Normal density. No suspicious mass. Gallbladder and biliary tract: No radiodense calculus. No biliary dilation. Pancreas: Normal density. No abnormal calcifications or inflammatory process. No evidence of mass. Spleen: Normal. Kidneys: Normal size, contour and axis. No radiodense stones. No obstructive uropathy. No suspicious masses seen. Adrenal glands: No masses seen. Vasculature: Abdominal aorta non-dilated. Atherosclerotic changes. Soft tissues: Small bilateral fatty containing inguinal hernias. Tiny fatty containing umbilical hernia. Bladder: No gross wall thickening. No calculi.No focal mass. Bilateral bladder diverticula. Bowel: No obstruction. No bowel wall thickening. Appendix normal.Mild diverticulosis. No evidence diverticulitis. Moderate quantity of stool, greatest in rectum. No visible GI bleed.. Peritoneal cavity: No ascites. No focal collection. No mesenteric inflammatory response. Bones: Degenerative changes in the spine. Reproductive organs: Prostate mildly enlarged Lymph nodes: No pathologically enlarged lymph nodes. IMPRESSION:: Diverticulosis. No evidence of diverticulitis. No source of GI bleed visible. Labs 07/22/23 02:28 07/21/23 18:52 Labs: Laboratory Results - last 24 hr 07/21/23 07/21/23 07/21/23 18:50 18:52 19:28 WBC 3.86 L RBC 1.93 L Hgb 6.1 L* Hct 19.7 L* MCV 102 H MCH 31.6 MCHC 31.0 L RDW 18.7 H Plt Count 94 L MPV 10.7 Immature Gran % 2.1 Neutrophils % 57.2 Lymphocytes % 36.0 Monocytes % 4.4 Eosinophils % 0.3 Basophils % 0.0 Nucleated RBC % 1.0 H Absolute Neutrophils 2.21 Absolute Lymphocytes 1.39 Absolute Monocytes 0.17 Absolute Eosinophils 0.01 Absolute Basophils 0.00 RBC Morphology See Below Polychromasia Present Hypochromasia 2+ PT 40.0 H INR 4.5 H* APTT 30.8 Sodium 144 Potassium 4.3 Chloride 111 H Carbon Dioxide 21.6 Anion Gap 11.4 H BUN 45 H Creatinine 1.4 H Est GFR (CKD-EPI 2020) 49.56 Glucose 118 H Calcium 8.4 L Magnesium 2.0 Iron TIBC Transferrin % Sat Total Bilirubin 0.6 AST 16 ALT 15 L Alkaline Phosphatase 52 Troponin I < 50 Total Protein 5.7 L Albumin 3.2 L Folate ABO/Rh B Positive Antibody Screen NEGATIVE Crossmatch See Detail 07/21/23 07/21/23 20:00 21:35 WBC RBC Hgb Hct MCV MCH MCHC RDW Plt Count MPV Immature Gran % Neutrophils % Lymphocytes % Monocytes % Eosinophils % Basophils % Nucleated RBC % Absolute Neutrophils Absolute Lymphocytes Absolute Monocytes Absolute Eosinophils Absolute Basophils RBC Morphology Polychromasia Hypochromasia PT INR APTT Sodium Potassium Chloride Carbon Dioxide Anion Gap BUN Creatinine Est GFR (CKD-EPI 2020) Glucose Calcium Magnesium Iron 28 L TIBC 244 L Transferrin % Sat 11 L Total Bilirubin AST ALT Alkaline Phosphatase Troponin I 53 Total Protein Albumin Folate 12.0 ABO/Rh Antibody Screen Crossmatch Last Vital Signs Temp 36.7 C 07/21/23 21:32 Pulse 91 H 07/21/23 21:32 Resp 18 07/21/23 21:40 BP 126/57 L 07/21/23 21:32 Pulse Ox 98 07/21/23 21:40 Time Spent Time spent with Patient: >75 minutes Time was spent: preparing to see the patient(eg.review tests), obtaining and/or reviewing separately otained hiistory, ordering medications,tests, procedures, referring, communicating with other health skin care technician, indepentently interpreting results and care coordination
[2023-07-21 23:20] LABS: Vitamin B12 694 pg/mL (193-986)
--- NOTE | 2023-07-21 23:59 | NUR.NOTE ---
[id number] pt reports feeling well after 1st unit of blood administration, 2nd unit in progress. Pt repots having no s/s, no CP, no arm pain, no jaw/teeth pain. Pt family at bedside verbally very upset that pt is not being transfered to hospital outside of [facility]. Charge nurse MG educated pt and family the process of transfer. This nurse entered room to initiate 2nd unit of blood. While this nurse in room monitoring pt, family verbally expressed their frustration with [facility] staff. Daughter Jenna stated this is terrible, we are being treated like middle class here. This nurse educated family and patient that medical care does not discriminate based on socioeconomic status. This nurse attempted emotional comfort, and education. This nurse advised family that pt is in stable condition and ER staff are treating him per MD recommendations. Pt family member stated when can we actually see a real doctor? This nurse asked for clarification on real doctor family member advised a doctor who knows what is going on and cares about their patients. I advised pt and family that pt is in stable condition and we are managing pt based off rejection from [facility]. This nurse asked for clarification about care at [facility] and pt family advised they felt like they were not being cared for appropriately here because [facility] rejected pt transfer. This nurse asked again if they have concerns with care they are receiving here, to which they advised no, other than he can't talk to a real doctor, we are so done with the nurse practitioner, and if she were a doctor Dad would be transferred. I advised that transfers are not based on credentials of providers, but actually determined by pt medical findings/information reviewed by outside hospital. Family advised the provider at [facility] denied transfer of pt after we offered all medical findings. Pt was accepted by hospitalist at [facility]. Emotional support provided to pt at bed side, VS and symptom monitoring during blood administration. Pt remained stable and is tolerating second unit with no reaction s/s. Note:
[2023-07-22] VITALS (16 sets, daily range): BP systolic 106–149; BP diastolic 57–80; PULSE 80–95; RESP 14–20; TEMP 36.6–37.7; O2SAT 94–100
[2023-07-22] MEDS: Pantoprazole 40 MG VIAL IVP ×2 (01:33→21:38)
[2023-07-22 02:48] LABS: HCT 22.8 % (40.0-50.0); HGB 7.2 g/dL (13.5-17.5); MCH 30.5 pg (27.0-33.0); MCHC 31.6 % (32.0-36.0); MCV 97 fL (80-95); RBC 2.36 10^6/uL (4.36-5.78); RDW-SD 59.9 fL; WBC 3.19 10^3/uL (4.4-10.8)
[2023-07-22 02:58] LABS: Troponin I 103 ng/L (< or =60)
[2023-07-22 03:05] LABS: Platelet Count 78 10^3/uL (130-400)
[2023-07-22 03:06] LABS: RDW 18.4 % (11.8-14.1)
[2023-07-22] MEDS: Atorvastatin 40 MG TAB 80 MG PO ×2 (04:39→21:38)
[2023-07-22 09:32] LABS: Bilirubin Negative (Negative); Blood Negative (Negative); Clarity Clear (Clear); Glucose Negative (Negative); Ketones Negative (Negative); Leukocyte Esterase Negative (Negative); Nitrite Negative (Negative); Urobilinogen 0.2 mg/dL (Up to 0.2); pH 5.5 (5-8)
[2023-07-22 09:33] LABS: Prothrombin Time 38.2 sec (9.1-11.1)
--- NOTE | 2023-07-22 09:34 | PGE_ITS ---
Date of Service Date of service: 07/22/23 Time of Service: 09:34 Assessment and Plan Assessment and plan (1) Exertional chest pain: Start date: 07/19/23 Status: Acute Assessment and plan: Most likely d/t acute blood loss anemia No further chest pain, RA Troponins: trending down; max 108.8 (2) Acute blood loss anemia: Start date: 07/19/23 Status: Acute Assessment and plan: Most likely d/t GIB w report of melena 3 PRBC's given H&H 7.6 & 23.1 was 6.1& 19.7 on arrival CBC done at noon and stable, next in AM Surgical consult: As per discussion with Dr. Sparrow, INR around 1.5 and less than 2 would be safe for upper and lower endoscopy. Would prep the patient when INR reached those values. 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 Both of these procedures were performed in [place], [place]. Cardiology consult : No bridge needed for the short term ( couple of days ) for the mechanical aortic valve to be able to perform endoscopy LVEF 60% on echo from 07/18 with trace to mild aortic regurgitation (6) Discharge planning issues: Status: Acute Assessment and plan: Discharge home when medically stable Discussed with Dr Miles Subjective Subjective Patient reports: feels better, tolerating liquids well, voiding w/o difficulty, flatus, no bowel movement, afebrile, fever and other (Denies hematochezia, bruising, dizziness); denies still having pain, diarrhea, nausea, vomiting or shortness of breath Exam Narrative Exam Narrative: Constitutional The patient is lying in bed comfortable and cooperative during the interview; family at bedside- all questions answered The patient is well groomed without acute distress, appears well-perfused HENMT: Facial structures with normal appearance Eyes: Well aligned Neuro:alert and oriented X4 . No neurological focal deficit Resp: Normal respiratory pattern, speaks in full sentences, unlabored breathing, clear lung bilaterally Cardio: regular rhythm, telemetry SR [id number] S1, S2, no murmur, positive pulses to all 4 extremities GI: Abdomen is not distended, soft and non tender, bowel sounds are present : Negative Costovertebral angle tenderness Back/spine/Pelvis: No back tenderness Integumentary: left lower abd abrasion from cardiac lead Extremities: strength 5/5 to bilateral lower and upper extremities Psych: RASS 0, congruent mood and normal affect. Objective Last Vital Signs Temp 36.9 C 07/22/23 01:02 Pulse 88 07/22/23 01:02 Resp 18 07/22/23 01:02 BP 127/64 07/22/23 01:02 Pulse Ox 99 07/22/23 01:02 Laboratory Results - last 24 hr 07/21/23 07/21/23 07/21/23 18:50 18:52 19:28 WBC 3.86 L RBC 1.93 L Hgb 6.1 L* Hct 19.7 L* MCV 102 H MCH 31.6 MCHC 31.0 L RDW 18.7 H Plt Count 94 L MPV 10.7 Immature Gran % 2.1 Neutrophils % 57.2 Lymphocytes % 36.0 Monocytes % 4.4 Eosinophils % 0.3 Basophils % 0.0 Nucleated RBC % 1.0 H Absolute Neutrophils 2.21 Absolute Lymphocytes 1.39 Absolute Monocytes 0.17 Absolute Eosinophils 0.01 Absolute Basophils 0.00 RBC Morphology See Below Polychromasia Present Hypochromasia 2+ PT 40.0 H INR 4.5 H* APTT 30.8 Sodium 144 Potassium 4.3 Chloride 111 H Carbon Dioxide 21.6 Anion Gap 11.4 H BUN 45 H Creatinine 1.4 H Est GFR (CKD-EPI 2020) 49.56 Glucose 118 H Calcium 8.4 L Magnesium 2.0 Iron TIBC Transferrin % Sat Total Bilirubin 0.6 AST 16 ALT 15 L Alkaline Phosphatase 52 Troponin I < 50 Total Protein 5.7 L Albumin 3.2 L Vitamin B12 Folate ABO/Rh B Positive Antibody Screen NEGATIVE Crossmatch See Detail 07/21/23 07/21/23 07/22/23 20:00 21:35 00:30 WBC RBC Hgb Hct MCV MCH MCHC RDW Plt Count MPV Immature Gran % Neutrophils % Lymphocytes % Monocytes % Eosinophils % Basophils % Nucleated RBC % Absolute Neutrophils Absolute Lymphocytes Absolute Monocytes Absolute Eosinophils Absolute Basophils RBC Morphology Polychromasia Hypochromasia PT INR APTT Sodium Potassium Chloride Carbon Dioxide Anion Gap BUN Creatinine Est GFR (CKD-EPI 2020) Glucose Calcium Magnesium Iron 28 L TIBC 244 L Transferrin % Sat 11 L Total Bilirubin AST ALT Alkaline Phosphatase Troponin I 53 Cancelled Total Protein Albumin Vitamin B12 694 Folate 12.0 ABO/Rh Antibody Screen Crossmatch 07/22/23 02:28 WBC 3.19 L RBC 2.36 L Hgb 7.2 L Hct 22.8 L MCV 97 H D MCH 30.5 MCHC 31.6 L RDW 18.4 H Plt Count 78 L MPV 11.0 Immature Gran % Neutrophils % Lymphocytes % Monocytes % Eosinophils % Basophils % Nucleated RBC % Absolute Neutrophils Absolute Lymphocytes Absolute Monocytes Absolute Eosinophils Absolute Basophils RBC Morphology Polychromasia Hypochromasia PT INR APTT Sodium Potassium Chloride Carbon Dioxide Anion Gap BUN Creatinine Est GFR (CKD-EPI 2020) Glucose Calcium Magnesium Iron TIBC Transferrin % Sat Total Bilirubin AST ALT Alkaline Phosphatase Troponin I 103 H* Total Protein Albumin Vitamin B12 Folate ABO/Rh Antibody Screen Crossmatch Time Spent with Patient Time Spent with Patient: >50 minutes Time was spent: preparing to see the patient(eg.review tests), obtaining and/or reviewing separately otained hiistory, ordering medications,tests, procedures, referring, communicating with other health director day care center, indepentently interpreting results, counseling the patient and care coordination
[2023-07-22 09:43] LABS: HCT 23.4 % (40.0-50.0); HGB 7.7 g/dL (13.5-17.5); MCH 30.8 pg (27.0-33.0); MCHC 32.9 % (32.0-36.0); MCV 94 fL (80-95); MPV 11.3 fL (8.0-11.0); Platelet Count 76 10^3/uL (130-400); RDW-SD 58.2 fL; WBC 3.28 10^3/uL (4.4-10.8)
--- NOTE | 2023-07-22 09:44 | SCONE_ITS ---
Date of service: 07/22/23 Time of Service: 09:44 Assessment and Plan Assessment and plan (1) Anemia: Status: Chronic Assessment and plan: I did talk with Umesh and his family for a long time about the differential diagnosis for heme positive stools and anemia, especially as it relates to patient's requiring therapeutic anticoagulation. I explained that EGD and colonoscopy are indicated to help see if we can identify any source of blood loss, and tailor the subsequent medical therapies appropriately. I also explained that if a source of bleeding is identified, then there may be a role for therapeutic interventions such as clipping, or cauterization. Obviously, his therapeutic anticoagulation complicates this quite a bit. Currently, his INR is greater than 4, and I do not think proceeding with endoscopy would be the safest course of action. Furthermore, his cardiac symptoms seem to be improved after transfusion, and generally his hemodynamics have been quite favorable. I discussed the case with anesthesia as well, and although I think the procedures are certainly warranted, cardiology consultation to help with risk stratification is probably the safest course of action. I also think that a heparin bridge for finer control of his anticoagulation around the procedure is warranted here. Will see how his INR trends over the next day or 2, and plan for a bowel prep for the scopes accordingly. History of Present Illness History of Present Illness Chief Complaint: Anemia Narrative: Umesh is 82 years old. He has a past medical history that is most significant for prostatic aortic valve requiring therapeutic anticoagulation. He tells me that sometime around the end of last month he began experiencing some exertional dyspnea and some discomfort that radiated up into his neck. This would resolve spontaneously after a few minutes of rest. It would tend to come and go each day as [place]. It sounds like this was associated with a little bit of constipation as well, and perhaps a change in the character of stools (he describes some mild constipation, and a noticeable darkening of the color of his stools). On July 18, symptoms became more worrisome, and the discomfort in his neck started to radiate into the left arm. He came to the emergency department, was found to have a hemoglobin around 6. He was transfused 2 units packed red blood cells, and started on a proton pump inhibitor. By that time, his symptoms had resolved, and he was discharged home with a referral to gastroenterology. Unfortunately, his symptoms returned yesterday, and he really felt out of sorts. His said he was not really acting himself. He came back to the emergency department with ongoing chest discomfort radiating again in the left arm. He had EKG changes that were concerning for ischemia. And a repeat hemoglobin was found to be 6.1 (which was down compared to the first). Multiple discussions were had with [facility] regarding transfer for cardiac and GI consultations. None of the services at [facility] were able to accommodate transfer, so it was recommended that he be admitted to the hospital with transfusion of packed red blood cells and ongoing monitoring. He was found to be guaiac positive. Since then, his symptoms have resolved. I am consulted for diagnostic EGD and colonoscopy to rule out GI bleeding. Review of Systems Constitutional Constitutional: Reports fatigue, Denies fever(s), Reports lethargy and Denies weight loss Eyes Eyes: Reports system reviewed and no additional complaints, except as documented ENT Ears, Nose, Mouth, and Throat: Reports system reviewed and no additional complaints, except as documented and Reports abnormal hearing (Hard of hearing) Cardiovascular Cardiovascular: Reports chest pain with activity, Denies claudication, Reports lightheadedness, Reports radiating jaw, neck or arm pain and Reports dyspnea on exertion Respiratory Respiratory: Denies chest congestion, Denies cough and Reports dyspnea on exertion Gastrointestinal Gastrointestinal: Denies abdominal pain, Reports change in stool character, Reports constipation and Denies dyspepsia Genitourinary Genitourinary: Reports system reviewed and no additional complaints, except as documented Musculoskeletal Musculoskeletal: Denies muscle cramps Neurologic Neurologic: Reports system reviewed and no additional complaints, except as documented, Reports abnormal hearing (Hard of hearing) and Reports behavioral changes Psychiatric Psychiatric: Reports system reviewed and no additional complaints, except as documented and Reports behavioral changes Endocrine Endocrine: Reports fatigue Hematologic/Lymphatic Hematologic/Lymphatic: Reports easy bleeding and Reports easy bruising 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) Diverticulosis of colon without diverticulitis (Chronic) Acute blood loss anemia (Acute) Exertional chest pain (Acute) Upper GI bleed (Acute) Anemia (Chronic) 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 ear (Acute) Sensorineural hearing loss (SNHL) of right ear with restricted hearing of left ear (Acute) Sensorineural hearing loss of combined sites, bilateral (Acute 08/03/16) Medical History diverticulosis adenoma colon polyp Prosthetic Aortic Valve Overweight Hearing loss bilat Surgical History redo of aortic valve hernia/hydrocele repair Appendectomy Aortic valve replaced Social History Smoking/Tobacco Use Status: Current-Occasional Smoking risk assessment performed?: Yes Drug use: Never Housing: house Do you feel safe at home: Yes Do you feel safe in your relationship?: Yes Exam Const General: cooperative, comfortable and no acute distress Nutritional Appearance: average body habitus Orientation: alert, awake and oriented x3 GI Inspection: normal to inspection and non-distended Palpation: soft and nontender Results Last Vital Signs Temp 98.4 F 07/22/23 01:02 Pulse 88 07/22/23 01:02 Resp 18 07/22/23 01:02 BP 127/64 07/22/23 01:02 Pulse Ox 99 07/22/23 01:02 Labs 07/22/23 12:10 07/22/23 09:03 Labs: Laboratory Results - last 24 hr 07/21/23 07/21/23 07/21/23 18:50 18:52 19:28 WBC 3.86 L RBC 1.93 L Hgb 6.1 L* Hct 19.7 L* MCV 102 H MCH 31.6 MCHC 31.0 L RDW 18.7 H Plt Count 94 L MPV 10.7 Immature Gran % 2.1 Neutrophils % 57.2 Lymphocytes % 36.0 Monocytes % 4.4 Eosinophils % 0.3 Basophils % 0.0 Nucleated RBC % 1.0 H Absolute Neutrophils 2.21 Absolute Lymphocytes 1.39 Absolute Monocytes 0.17 Absolute Eosinophils 0.01 Absolute Basophils 0.00 RBC Morphology See Below Polychromasia Present Hypochromasia 2+ PT 40.0 H INR 4.5 H* APTT 30.8 Sodium 144 Potassium 4.3 Chloride 111 H Carbon Dioxide 21.6 Anion Gap 11.4 H BUN 45 H Creatinine 1.4 H Est GFR (CKD-EPI 2020) 49.56 Glucose 118 H Calcium 8.4 L Magnesium 2.0 Iron TIBC Transferrin % Sat Total Bilirubin 0.6 AST 16 ALT 15 L Alkaline Phosphatase 52 Troponin I < 50 Total Protein 5.7 L Albumin 3.2 L Vitamin B12 Folate ABO/Rh B Positive Antibody Screen NEGATIVE Crossmatch See Detail 07/21/23 07/21/23 07/22/23 20:00 21:35 00:30 WBC RBC Hgb Hct MCV MCH MCHC RDW Plt Count MPV Immature Gran % Neutrophils % Lymphocytes % Monocytes % Eosinophils % Basophils % Nucleated RBC % Absolute Neutrophils Absolute Lymphocytes Absolute Monocytes Absolute Eosinophils Absolute Basophils RBC Morphology Polychromasia Hypochromasia PT INR APTT Sodium Potassium Chloride Carbon Dioxide Anion Gap BUN Creatinine Est GFR (CKD-EPI 2020) Glucose Calcium Magnesium Iron 28 L TIBC 244 L Transferrin % Sat 11 L Total Bilirubin AST ALT Alkaline Phosphatase Troponin I 53 Cancelled Total Protein Albumin Vitamin B12 694 Folate 12.0 ABO/Rh Antibody Screen Crossmatch 07/22/23 02:28 WBC 3.19 L RBC 2.36 L Hgb 7.2 L Hct 22.8 L MCV 97 H D MCH 30.5 MCHC 31.6 L RDW 18.4 H Plt Count 78 L MPV 11.0 Immature Gran % Neutrophils % Lymphocytes % Monocytes % Eosinophils % Basophils % Nucleated RBC % Absolute Neutrophils Absolute Lymphocytes Absolute Monocytes Absolute Eosinophils Absolute Basophils RBC Morphology Polychromasia Hypochromasia PT INR APTT Sodium Potassium Chloride Carbon Dioxide Anion Gap BUN Creatinine Est GFR (CKD-EPI 2020) Glucose Calcium Magnesium Iron TIBC Transferrin % Sat Total Bilirubin AST ALT Alkaline Phosphatase Troponin I 103 H* Total Protein Albumin Vitamin B12 Folate ABO/Rh Antibody Screen Crossmatch
[2023-07-22 10:01] LABS: AST 17 U/L (15-37); Albumin 2.7 g/dL (3.4-5.0); Alkaline Phosphatase 39 U/L (46-116); Anion Gap 10.8 mmol/L (3-11); BUN 41 mg/dL (7-18); Bilirubin, Total 0.7 mg/dL (0.2-1.0); CO2 21.2 mmol/L (21.0-32.0); CREATININE 1.2 mg/dL (0.70-1.30); Calcium 7.9 mg/dL (8.5-10.1); Chloride 110 mmol/L (98-107); Estimated GFR 59.63 (mL/min/1.73m2); Glucose 146 mg/dL (74-106); Potassium 3.6 mmol/L (3.5-5.1); Sodium 142 mmol/L (136-145)
[2023-07-22 10:02] LABS: ALT 13 U/L (16-63); Magnesium 1.9 mg/dL (1.8-2.4)
[2023-07-22] MEDS: Normal Saline Flush 10 ML SYR IVP ×2 (10:03→21:38)
[2023-07-22] MEDS: Aspirin 81 MG CHEW PO (10:03)
[2023-07-22 10:06] LABS: INR 4.3 (0.9-1.1)
[2023-07-22 10:09] LABS: Cholesterol 97 mg/dL (<200); Triglyceride 121 mg/dL (<150)
[2023-07-22 10:10] LABS: Calculated LDL 48 mg/dL (<100); HDL Cholesterol 25 mg/dL (40-60)
[2023-07-22 10:13] LABS: Troponin I 109 ng/L (< or =60)
--- NOTE | 2023-07-22 10:20 | INITIAL_ITS ---
Date of service: 07/22/23 Time of Service: 10:20 Care Management Initial Assmt Initial Assessment REASON FOR HOSPITALIZATION:: Exertional chest pain with GI bleed and acute blood loss anemia PREVIOUS FUNCTIONAL STATUS/SOCIAL/FAMILY SUPPORTS:: Umesh is retired and lives in [place] with his Jessy. His two adult children live locally and are supportive. Diomedes drives and is fully independent with his ADL/IADL's at baseline. At baseline, Umesh does not require any assistive devices to ambulate. CURRENT FUNCTIONAL STATUS:: Umesh is in bed with the HOB elevated when CM met with him. Jessy is sitting at his bedside in her wheelchair, their son, daughter and granddaughter are also visiting. His family is very supportive and eager to know the plan considering he almost bled out once and is on warfarin. Reassurance is provided that his labs are being closely monitored and minutes later the labor relations representative came by to check his labs. Hospitalist also spoke with family. ADVANCE DIRECTIVES:: On file, [facility] is Jessy Has patient been provided with info about the portal/API?: Yes Did the patient sign up for the portal?: No CODE STATUS:: Full Code INSURANCE COVERAGE / FINANCIAL ISSUES:: AARP MCR Medicare CURRENT HOME/COMMUNITY SERVICES/EQUIPMENT:: None PRIMARY CARE PHYSICIAN:: Rafiq El POTENTIAL DISCHARGE NEEDS:: Discharge plan of care, evaluations for further needs PATIENT/FAMILY EDUCATION NEEDS:: Review discharge instructions, limitations, medications and plan to follow up with community providers. Discuss ask me three. ANTICIPATED BARRIERS TO DISCHARGE:: None identified TRANSPORTATION:: private vehicle with family. PLAN:: Umesh is being closely monitored and treated for acute blood loss anemia. He may need upper/lower scopes, surgical is consulted. Anticipate he will discharge home once medically ready for discharge. Family will transport. Services will be ordered, if needed. CM will continue to follow. 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) Diverticulosis of colon without diverticulitis (Chronic) Acute blood loss anemia (Acute) Exertional chest pain (Acute) Upper GI bleed (Acute) Anemia (Chronic) 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 ear (Acute) Sensorineural hearing loss (SNHL) of right ear with restricted hearing of left ear (Acute) Sensorineural hearing loss of combined sites, bilateral (Acute 08/03/16) Medical History diverticulosis adenoma colon polyp Prosthetic Aortic Valve Overweight Hearing loss bilat Surgical History redo of aortic valve hernia/hydrocele repair Appendectomy Aortic valve replaced Social History Smoking/Tobacco Use Status: Current-Occasional Smoking risk assessment performed?: Yes Drug use: Never Housing: house Do you feel safe at home: Yes Do you feel safe in your relationship?: Yes SDOH(Care Management) Screening Will the Patient Participate in the Screening?: Declined to provide Do you worry about having a steady place to live?: no Problems where you live: no known problems In the past 12 months, have you had to go without electric, gas, oil or water in your home?: no Have you or anyone in your house had to go without enough food to eat?: no Has lack of transportation kept you from medical appointments or from doing things needed for daily living?: no Has anyone in your support network made you feel unsafe for any reason?: no
[2023-07-22 12:26] LABS: Abs Immature Grans 0.13 10^3/uL (0.0-0.06); Absolute Lymphocyte Count 1.31 10^3/uL (1.2-3.4); Absolute Monocyte Count 0.13 10^3/uL (0.1-0.8); Absolute Neutrophil Count 1.91 10^3/uL (1.2-6.7); HCT 23.1 % (40.0-50.0); HGB 7.6 g/dL (13.5-17.5); Immature Grans % 3.7 %; Lymphocytes % 37.6 %; MCH 31.1 pg (27.0-33.0); MCHC 32.9 % (32.0-36.0); MCV 95 fL (80-95); MPV 10.4 fL (8.0-11.0); Monocytes % 3.7 %; Nucleated RBC 0.9 % (0.0-0.3); RBC 2.44 10^6/uL (4.36-5.78); RDW-SD 59.3 fL; WBC 3.48 10^3/uL (4.4-10.8)
[2023-07-22 12:39] LABS: Anisocytosis 1+; Diff Comment Diff Reviewed; Platelet Count 76 10^3/uL (130-400); Polychromasia Present
[2023-07-22 12:44] LABS: Troponin I 106 ng/L (< or =60)
[2023-07-22 15:40] LABS: Prothrombin Time 36.2 sec (9.1-11.1)
[2023-07-22 15:52] LABS: INR 4.1 (0.9-1.1)
[2023-07-23] VITALS (17 sets, daily range): BP systolic 100–136; BP diastolic 57–69; PULSE 83–94; RESP 16–18; TEMP 36.7–39.1; O2SAT 95–99
[2023-07-23 06:56] LABS: Abs Immature Grans 0.13 10^3/uL (0.0-0.06); Absolute Eosinophil Count 0.01 10^3/uL (0.0-0.7); Absolute Lymphocyte Count 1.13 10^3/uL (1.2-3.4); Absolute Monocyte Count 0.17 10^3/uL (0.1-0.8); Absolute Neutrophil Count 1.96 10^3/uL (1.2-6.7); Eosinophils % 0.3 %; Immature Grans % 3.8 %; Lymphocytes % 33.2 %; MCH 30.4 pg (27.0-33.0); MCHC 31.7 % (32.0-36.0); MCV 96 fL (80-95); MPV 11.2 fL (8.0-11.0); Neutrophils % 57.7 %; Nucleated RBC 0.9 % (0.0-0.3); RBC 2.14 10^6/uL (4.36-5.78); RDW 18.1 % (11.8-14.1); RDW-SD 59.7 fL
[2023-07-23 07:01] LABS: INR 3.9 (0.9-1.1); Prothrombin Time 34.4 sec (9.1-11.1)
[2023-07-23 07:16] LABS: HCT 20.5 % (40.0-50.0); HGB 6.5 g/dL (13.5-17.5)
[2023-07-23 07:17] LABS: Diff Comment Diff Reviewed; Hypochromasia 3+; Platelet Count 81 10^3/uL (130-400); Polychromasia Present
[2023-07-23 07:24] LABS: Anion Gap 10.2 mmol/L (3-11); BUN 39 mg/dL (7-18); CO2 21.8 mmol/L (21.0-32.0); CREATININE 1.1 mg/dL (0.70-1.30); Calcium 7.7 mg/dL (8.5-10.1); Chloride 110 mmol/L (98-107); Estimated GFR 66.19 (mL/min/1.73m2); Ferritin 25 ng/mL (26-388); Glucose 115 mg/dL (74-106); Potassium 3.7 mmol/L (3.5-5.1); Sodium 142 mmol/L (136-145)
--- NOTE | 2023-07-23 08:11 | CCONE_ITS ---
Date of service: 07/23/23 Time of Service: 08:11 Assessment and Plan Assessment and plan (1) Acute blood loss anemia: Status: Acute Assessment and plan: Patient has significant anemia. He had demand ischemia on this basis. He requires colonoscopy and EGD for further evaluation. I would consider him stable from the cardiac standpoint for these procedures. I would not recommend any additional preoperative cardiac testing (2) H/O mechanical aortic valve replacement: Status: Acute Assessment and plan: Patient has mechanical aortic valve replacement which is functioning appropriately. It would be reasonable to continue to withhold warfarin until his INR falls below 2. Anticoagulation can be omitted without bridging for 2 or 3 days thereafter depending on his course. If undertaken, bridging increases the risk of additional bleeding. History of Present Illness History of Present Illness Chief Complaint: Shortness of breath, GI bleeding Narrative: This is an 82-year-old man who has a mechanical aortic valve replacement placed approximately 35 years ago. Prior to that he had a bioprosthetic valve for 9 years which degenerated. He has been maintained long-term on warfarin. He presented to the hospital this week with shortness of breath, diffuse pain and was found to be profoundly anemic. He had an echocardiogram done which showed that his mechanical aortic valve replacement was functioning properly with a mean gradient of 21 mmHg. LV function was normal. Atria are moderately enlarged. There was incidental mild mitral regurgitation Patient has been transfused. His hemoglobin got up to 7.7 but again today is 6.5. His warfarin has been withheld. INR is gradually following, today it is 3.9. He had mildly elevated but flat troponins in the absence of any electrocardiographic abnormalities. 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) Diverticulosis of colon without diverticulitis (Chronic) Acute blood loss anemia (Acute) Exertional chest pain (Acute) Upper GI bleed (Acute) Anemia (Chronic) 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 ear (Acute) Sensorineural hearing loss (SNHL) of right ear with restricted hearing of left ear (Acute) Sensorineural hearing loss of combined sites, bilateral (Acute 08/03/16) Medical History diverticulosis adenoma colon polyp Prosthetic Aortic Valve Overweight Hearing loss bilat Surgical History redo of aortic valve hernia/hydrocele repair Appendectomy Aortic valve replaced Social History Smoking/Tobacco Use Status: Current-Occasional Smoking risk assessment performed?: Yes Drug use: Never Housing: house Do you feel safe at home: Yes Do you feel safe in your relationship?: Yes Exam Const Other: Well-developed well-nourished looks a bit younger than stated age no acute distress Neck Other: No neck vein distention. JVP is just visible with the patient sitting upright. Carotid pulsations are normal there are transmitted mechanical valve sounds Resp Auscultation: clear to auscultation bilaterally Cardio Other: Heart is regular there is a 2/6 systolic ejection quality murmur Skin Other: warm and dry Extrem Other: No significant edema Results Last Vital Signs Temp 36.9 C 07/23/23 07:30 Pulse 91 H 07/23/23 07:30 Resp 18 07/23/23 07:30 BP 131/65 07/23/23 07:30 Pulse Ox 99 07/23/23 07:30 Labs 07/23/23 06:10 07/23/23 06:10 Labs: Laboratory Results - last 24 hr 07/21/23 07/22/23 07/22/23 19:28 04:35 09:03 WBC 3.28 L RBC 2.50 L Hgb 7.7 L Hct 23.4 L MCV 94 MCH 30.8 MCHC 32.9 RDW 18.0 H Plt Count 76 L MPV 11.3 H Immature Gran % Neutrophils % Lymphocytes % Monocytes % Eosinophils % Basophils % Nucleated RBC % Absolute Neutrophils Absolute Lymphocytes Absolute Monocytes Absolute Eosinophils Absolute Basophils RBC Morphology Polychromasia Hypochromasia Anisocytosis PT 38.2 H INR 4.3 H* Sodium 142 Potassium 3.6 Chloride 110 H Carbon Dioxide 21.2 Anion Gap 10.8 BUN 41 H Creatinine 1.2 Est GFR (CKD-EPI 2020) 59.63 Glucose 146 H Calcium 7.9 L Magnesium 1.9 Ferritin Total Bilirubin 0.7 AST 17 ALT 13 L Alkaline Phosphatase 39 L Troponin I 109 H* Total Protein 5.0 L Albumin 2.7 L Triglycerides 121 Total Cholesterol 97 LDL Cholesterol, Calc 48 HDL Cholesterol 25 L Urine Color Yellow Urine Clarity Clear Urine pH 5.5 Ur Specific [place] 1.020 Urine Protein Negative Urine Ketones Negative Urine Blood Negative Urine Nitrite Negative Urine Bilirubin Negative Urine Urobilinogen 0.2 Ur Leukocyte Esterase Negative Urine Glucose Negative ABO/Rh B Positive Antibody Screen NEGATIVE Crossmatch See Detail 07/22/23 07/22/23 07/23/23 12:10 15:22 06:10 WBC 3.48 L 3.40 L RBC 2.44 L 2.14 L Hgb 7.6 L 6.5 L* Hct 23.1 L 20.5 L* MCV 95 96 H MCH 31.1 30.4 MCHC 32.9 31.7 L RDW 18.0 H 18.1 H Plt Count 76 L 81 L MPV 10.4 11.2 H Immature Gran % 3.7 3.8 Neutrophils % 55.0 57.7 Lymphocytes % 37.6 33.2 Monocytes % 3.7 5.0 Eosinophils % 0.0 0.3 Basophils % 0.0 0.0 Nucleated RBC % 0.9 H 0.9 H Absolute Neutrophils 1.91 1.96 Absolute Lymphocytes 1.31 1.13 L Absolute Monocytes 0.13 0.17 Absolute Eosinophils 0.00 0.01 Absolute Basophils 0.00 0.00 RBC Morphology See Below See Below Polychromasia Present Present Hypochromasia 3+ Anisocytosis 1+ PT 36.2 H 34.4 H INR 4.1 H 3.9 H Sodium 142 Potassium 3.7 Chloride 110 H Carbon Dioxide 21.8 Anion Gap 10.2 BUN 39 H Creatinine 1.1 Est GFR (CKD-EPI 2020) 66.19 Glucose 115 H Calcium 7.7 L Magnesium Ferritin 25 L Total Bilirubin AST ALT Alkaline Phosphatase Troponin I 106 H* Total Protein Albumin Triglycerides Total Cholesterol LDL Cholesterol, Calc HDL Cholesterol Urine Color Urine Clarity Urine pH Ur Specific [place] Urine Protein Urine Ketones Urine Blood Urine Nitrite Urine Bilirubin Urine Urobilinogen Ur Leukocyte Esterase Urine Glucose ABO/Rh Antibody Screen Crossmatch
--- NOTE | 2023-07-23 09:02 | W.PM.PROGNOT ---
Date of Service Date of service: 07/16/23 Time of Service: 09:03 Assessment and Plan Assessment and plan (1) Exertional chest pain: Start date: 07/19/23 Status: Acute Assessment and plan: Most likely d/t acute blood loss anemia No further chest pain, RA Troponins: trending down; max 108.8 (2) Acute blood loss anemia: Start date: 07/19/23 Status: Acute Assessment and plan: Most likely d/t GIB w report of melena; guaic pending 3 PRBC's given on 07/21 2 PRBC's on 07/22 H&H was 7.6 & 23.1 s/p 3 PRBC's yesterday this AM was 6.5 & 20.5 repeat Hgb 8.7 after transfusion CBC in AM Surgical consult: As per discussion with Dr. Sparrow, INR around 1.5 and less than 2 would be safe for upper and lower endoscopy. - Considering FFP VS vitamin K and discussed with Dr. Ryan: vitamin K 2.5 mg po once -On schedule for Wednesday with Dr. Sparrow; discuss prep on Wednesday if INR near goal with surgery -No bridging for a few days as per Dr. 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 Sparrow (5) H/O prosthetic aortic valve replacement: Status: Chronic Assessment and plan: As previously stated: Patient has had his aortic valve replaced twice, first with a bovine valve and then with mechanical valve he presently has for the last 35 years. Both of these procedures were performed in [place], [place]. Cardiology consult : No bridge needed for the short term ( couple of days ) for the mechanical aortic valve to be able to perform endoscopy LVEF 60% on echo from 07/18 with trace to mild aortic regurgitation (6) Discharge planning issues: Status: Acute Assessment and plan: Discharge home when medically stable after endoscopy Considering hematology consult if LFT's abnormal Discussed with Dr Miles Subjective Subjective Patient reports: no new complaints, tolerating liquids well, voiding w/o difficulty, bowel movement, shortness of breath and afebrile; denies still having pain, tolerating a regular diet (NPO), diarrhea, nausea, vomiting or fever Exam Narrative Exam Narrative: Constitutional The patient is lying in bed comfortable and cooperative during the interview; family at bedside- all questions answered The patient is well groomed without acute distress, appears well-perfused HENMT: Facial structures with normal appearance Eyes: Well aligned Neuro:alert and oriented X4 . Resp: Normal respiratory pattern, speaks in full sentences, unlabored breathing, clear lung bilaterally Cardio: regular rhythm, telemetry SR HR 84-96 S1, S2, no murmur GI: Abdomen is not distended, soft and non tender, bowel sounds are present Back/spine/Pelvis: No back tenderness Extremities: strength 5/5 to bilateral lower and upper extremities Psych: RASS 0, congruent mood and normal affect. Objective Last Vital Signs Temp 37.5 C 07/23/23 08:51 Pulse 91 H 07/23/23 08:51 Resp 16 07/23/23 08:51 BP 110/60 07/23/23 08:51 Pulse Ox 98 07/23/23 08:51 Laboratory Results - last 24 hr 07/21/23 07/22/23 07/22/23 19:28 04:35 09:03 WBC 3.28 L RBC 2.50 L Hgb 7.7 L Hct 23.4 L MCV 94 MCH 30.8 MCHC 32.9 RDW 18.0 H Plt Count 76 L MPV 11.3 H Immature Gran % Neutrophils % Lymphocytes % Monocytes % Eosinophils % Basophils % Nucleated RBC % Absolute Neutrophils Absolute Lymphocytes Absolute Monocytes Absolute Eosinophils Absolute Basophils RBC Morphology Polychromasia Hypochromasia Anisocytosis PT 38.2 H INR 4.3 H* Sodium 142 Potassium 3.6 Chloride 110 H Carbon Dioxide 21.2 Anion Gap 10.8 BUN 41 H Creatinine 1.2 Est GFR (CKD-EPI 2020) 59.63 Glucose 146 H Calcium 7.9 L Magnesium 1.9 Ferritin Total Bilirubin 0.7 AST 17 ALT 13 L Alkaline Phosphatase 39 L Troponin I 109 H* Total Protein 5.0 L Albumin 2.7 L Triglycerides 121 Total Cholesterol 97 LDL Cholesterol, Calc 48 HDL Cholesterol 25 L Urine Color Yellow Urine Clarity Clear Urine pH 5.5 Ur Specific [place] 1.020 Urine Protein Negative Urine Ketones Negative Urine Blood Negative Urine Nitrite Negative Urine Bilirubin Negative Urine Urobilinogen 0.2 Ur Leukocyte Esterase Negative Urine Glucose Negative ABO/Rh B Positive Antibody Screen NEGATIVE Crossmatch See Detail 07/22/23 07/22/23 07/23/23 12:10 15:22 06:10 WBC 3.48 L 3.40 L RBC 2.44 L 2.14 L Hgb 7.6 L 6.5 L* Hct 23.1 L 20.5 L* MCV 95 96 H MCH 31.1 30.4 MCHC 32.9 31.7 L RDW 18.0 H 18.1 H Plt Count 76 L 81 L MPV 10.4 11.2 H Immature Gran % 3.7 3.8 Neutrophils % 55.0 57.7 Lymphocytes % 37.6 33.2 Monocytes % 3.7 5.0 Eosinophils % 0.0 0.3 Basophils % 0.0 0.0 Nucleated RBC % 0.9 H 0.9 H Absolute Neutrophils 1.91 1.96 Absolute Lymphocytes 1.31 1.13 L Absolute Monocytes 0.13 0.17 Absolute Eosinophils 0.00 0.01 Absolute Basophils 0.00 0.00 RBC Morphology See Below See Below Polychromasia Present Present Hypochromasia 3+ Anisocytosis 1+ PT 36.2 H 34.4 H INR 4.1 H 3.9 H Sodium 142 Potassium 3.7 Chloride 110 H Carbon Dioxide 21.8 Anion Gap 10.2 BUN 39 H Creatinine 1.1 Est GFR (CKD-EPI 2020) 66.19 Glucose 115 H Calcium 7.7 L Magnesium Ferritin 25 L Total Bilirubin AST ALT Alkaline Phosphatase Troponin I 106 H* Total Protein Albumin Triglycerides Total Cholesterol LDL Cholesterol, Calc HDL Cholesterol Urine Color Urine Clarity Urine pH Ur Specific [place] Urine Protein Urine Ketones Urine Blood Urine Nitrite Urine Bilirubin Urine Urobilinogen Ur Leukocyte Esterase Urine Glucose ABO/Rh Antibody Screen Crossmatch Time Spent with Patient Time Spent with Patient: >50 minutes Time was spent: preparing to see the patient(eg.review tests), obtaining and/or [facility], ordering medications,tests, procedures, referring, communicating with other health rn home care, indepentently interpreting results, counseling the patient and care coordination
[2023-07-23] MEDS: Normal Saline Flush 10 ML SYR IVP ×2 (09:35→20:48)
[2023-07-23 09:48] LABS: Lab Add On Test DONE
[2023-07-23 10:04] LABS: ALT 15 U/L (16-63); AST 18 U/L (15-37); Albumin 2.5 g/dL (3.4-5.0); Alkaline Phosphatase 33 U/L (46-116); Bilirubin, Direct 0.2 mg/dL (0.0-0.2); Bilirubin, Total 0.9 mg/dL (0.2-1.0); Total Protein 4.8 g/dL (6.4-8.2)
--- NOTE | 2023-07-23 12:39 | PDOC.CMPRO ---
Date of service: 07/23/23 Time of Service: 12:39 Care Management Progress Note Progress Note Text Progress Note Text: S/O: Umesh was lying in bed, surrounded by his family when CM entered his room. Umesh indicates that he had a word with the M.D this morning and respectfully declines to meet with CM. Per chart review: pt remains inpatient at [facility] for acute bloodloss anemia. He takes Warfarin (current INR 3.9) which is being held so he can get an endoscopy and colonoscopy when his INR is in an acceptable range for the procedure. Surgery and Cardiology is consulted. His labs are being closely monitored, continues to require blood transfusions. A: 82 year old male admitted to [facility] on 07/21/23 with Exertional chest pain with GI bleed and acute blood loss anemia P: Umesh is being closely monitored and treated for acute blood loss anemia. He may need upper/lower scopes, surgical is consulted. Anticipate he will discharge home once medically ready for discharge. Family will transport. Services will be ordered, if needed. CM will continue to follow. SDOH(Care Management) Screening Will the Patient Participate in the Screening?: Declined to provide Do you worry about having a steady place to live?: no Problems where you live: no known problems In the past 12 months, have you had to go without electric, gas, oil or water in your home?: no Have you or anyone in your house had to go without enough food to eat?: no Has lack of transportation kept you from medical appointments or from doing things needed for daily living?: no Has anyone in your support network made you feel unsafe for any reason?: no
--- NOTE | 2023-07-23 12:47 | CHAPLAIN ---
Umesh was sleeping when I visited. I spoke with his , Jessy. They have been over 60 years. Jessy was knitting sox. I explained my role and offered support.
[2023-07-23 15:35] LABS: Abs Immature Grans 0.06 10^3/uL (0.0-0.06); Absolute Lymphocyte Count 1.22 10^3/uL (1.2-3.4); Absolute Monocyte Count 0.19 10^3/uL (0.1-0.8); Absolute Neutrophil Count 1.95 10^3/uL (1.2-6.7); HCT 26.5 % (40.0-50.0); HGB 8.7 g/dL (13.5-17.5); Immature Grans % 1.8 %; Lymphocytes % 35.7 %; MCH 30.7 pg (27.0-33.0); MCHC 32.8 % (32.0-36.0); MCV 94 fL (80-95); MPV 10.6 fL (8.0-11.0); Monocytes % 5.6 %; Neutrophils % 56.9 %; Nucleated RBC 0.9 % (0.0-0.3); Platelet Count 78 10^3/uL (130-400); RBC 2.83 10^6/uL (4.36-5.78); RDW 16.7 % (11.8-14.1); RDW-SD 53.6 fL; WBC 3.42 10^3/uL (4.4-10.8)
[2023-07-23 15:44] LABS: INR 3.7 (0.9-1.1); Prothrombin Time 33.1 sec (9.1-11.1)
[2023-07-23] MEDS: Phytonadione 5 MG TABLET 2.5 MG PO (16:29)
[2023-07-23] MEDS: Docusate Sodium 100 MG CAP PO ×2 (17:04→20:49)
--- NOTE | 2023-07-23 19:21 | W.PM.PROGNOT ---
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 -Bridge w/ heparin. Heparin needs to be off 2 hrs prior to the procedure. -bowel prep Wednesday and NPO after midnight. IV fluids while NPO -Pt will need abx prior to the case cont PPI/carafate trend Hgb Venofer (4) Sensorineural hearing loss of combined sites, bilateral: Status: Acute (5) Acute blood loss anemia: Status: Acute (6) Diverticulosis of colon without diverticulitis: Status: Chronic (7) Upper GI bleed: Status: Acute (8) diverticulosis: (9) adenoma colon polyp: (10) Overweight: Objective Last Vital Signs Temp 37.7 C H 07/23/23 13:05 Pulse 90 07/23/23 13:05 Resp 17 07/23/23 13:05 BP 125/66 07/23/23 13:05 Pulse Ox 98 07/23/23 13:05 Laboratory Results - last 24 hr 07/21/23 07/23/23 07/23/23 19:28 06:10 15:20 WBC 3.40 L 3.42 L RBC 2.14 L 2.83 L Hgb 6.5 L* 8.7 L D Hct 20.5 L* 26.5 L MCV 96 H 94 MCH 30.4 30.7 MCHC 31.7 L 32.8 RDW 18.1 H 16.7 H Plt Count 81 L 78 L MPV 11.2 H 10.6 Immature Gran % 3.8 1.8 Neutrophils % 57.7 56.9 Lymphocytes % 33.2 35.7 Monocytes % 5.0 5.6 Eosinophils % 0.3 0.0 Basophils % 0.0 0.0 Nucleated RBC % 0.9 H 0.9 H Absolute Neutrophils 1.96 1.95 Absolute Lymphocytes 1.13 L 1.22 Absolute Monocytes 0.17 0.19 Absolute Eosinophils 0.01 0.00 Absolute Basophils 0.00 0.00 RBC Morphology See Below Polychromasia Present Hypochromasia 3+ PT 34.4 H 33.1 H INR 3.9 H 3.7 H Sodium 142 Potassium 3.7 Chloride 110 H Carbon Dioxide 21.8 Anion Gap 10.2 BUN 39 H Creatinine 1.1 Est GFR (CKD-EPI 2020) 66.19 Glucose 115 H Calcium 7.7 L Ferritin 25 L Total Bilirubin 0.9 Conjugated Bilirubin 0.2 AST 18 ALT 15 L Alkaline Phosphatase 33 L Total Protein 4.8 L Albumin 2.5 L Add-On Test Request DONE ABO/Rh B Positive Antibody Screen NEGATIVE Crossmatch See Detail Time Spent with Patient Time Spent with Patient: <25 minutes Time was spent: preparing to see the patient(eg.review tests), ordering medications,tests, procedures, referring, communicating with other health career and guidance counselor, indepentently interpreting results and care coordination
[2023-07-23] MEDS: Pantoprazole 40 MG VIAL IVP (20:48)
[2023-07-23] MEDS: ACETAMINOPHEN 1,000 MG/100 ML BTL 400 MG IVPB (20:48)
[2023-07-23] MEDS: Atorvastatin 40 MG TAB 80 MG PO (20:49)
[2023-07-23] MEDS: Sucralfate 1 GM TAB PO (20:49)
[2023-07-23] MEDS: diphenhydrAMINE 50 MG/ML VIAL 25 MG IVP (21:25)
[2023-07-23] MEDS: IRON SUCROSE COMPLEX 200 MG in Normal Saline 100 ML 400 MG IVPB (22:11)
[2023-07-24] VITALS (18 sets, daily range): BP systolic 114–147; BP diastolic 60–98; PULSE 90–132; RESP 16–22; TEMP 36–37.9; O2SAT 95–98
--- NOTE | 2023-07-24 02:45 | RT.EKG_ITS ---
APPROVED REPORT Exam: Resting ECG Reason for Exam: HR >180 Patient Location: I HR:132 bpm ECG Measurements Heart Rate 132 AXIS TN 101 P 0 QRSd 85 QRS -4 QT 274 T 177 QTc 406 Conclusion Sinus tachycardia...rate> 99 Repolarization abnormality, prob rate related...ST dep, T neg, tachycardia consider atrial flutter
[2023-07-24 06:43] LABS: Abs Immature Grans 0.09 10^3/uL (0.0-0.06); Absolute Basophil Count 0.01 10^3/uL (0.0-0.2); Absolute Eosinophil Count 0.01 10^3/uL (0.0-0.7); Absolute Lymphocyte Count 0.95 10^3/uL (1.2-3.4); Absolute Monocyte Count 0.18 10^3/uL (0.1-0.8); Absolute Neutrophil Count 3.21 10^3/uL (1.2-6.7); Basophils % 0.2 %; Eosinophils % 0.2 %; HCT 22.8 % (40.0-50.0); HGB 7.5 g/dL (13.5-17.5); Lymphocytes % 21.3 %; MCH 31.3 pg (27.0-33.0); MCHC 32.9 % (32.0-36.0); MCV 95 fL (80-95); MPV 11.1 fL (8.0-11.0); Neutrophils % 72.3 %; Nucleated RBC 0.9 % (0.0-0.3); RDW 17.2 % (11.8-14.1); RDW-SD 56.7 fL; WBC 4.45 10^3/uL (4.4-10.8)
[2023-07-24] MEDS: Sucralfate 1 GM TAB PO ×4 (06:45→23:46)
[2023-07-24 06:54] LABS: INR 2.7 (0.9-1.1); Prothrombin Time 25.3 sec (9.1-11.1)
[2023-07-24 06:56] LABS: Anion Gap 8.8 mmol/L (3-11); BUN 45 mg/dL (7-18); CO2 22.2 mmol/L (21.0-32.0); CREATININE 1.1 mg/dL (0.70-1.30); Calcium 7.9 mg/dL (8.5-10.1); Chloride 111 mmol/L (98-107); Estimated GFR 66.19 (mL/min/1.73m2); Glucose 122 mg/dL (74-106); Potassium 3.9 mmol/L (3.5-5.1); Sodium 142 mmol/L (136-145)
[2023-07-24 07:01] LABS: Diff Comment Diff Reviewed; Hypochromasia 2+; Platelet Count 82 10^3/uL (130-400)
[2023-07-24] MEDS: Docusate Sodium 100 MG CAP PO ×3 (08:25→21:58)
[2023-07-24] MEDS: Normal Saline Flush 10 ML SYR IVP ×2 (08:25→21:57)
--- NOTE | 2023-07-24 09:13 | W.PM.PROGNOT ---
Date of Service Date of service: 07/24/23 Time of Service: 09:17 Assessment and Plan Assessment and plan (1) Exertional chest pain: Start date: 07/19/23 Status: Acute Assessment and plan: Most likely d/t acute blood loss anemia No further chest pain, RA Troponins: trending down; max 108.8 (2) Acute blood loss anemia: Start date: 07/19/23 Status: Acute Assessment and plan: Most likely d/t GIB w report of melena; guaic pending 3 PRBC's given on 07/21 2 PRBC's on 07/22 H&H was 7.5 & 22.8 but was 8.7& 26.5 s/p 2 PRBC's yesterday ; Repeat H&H this PM 6.8 & 21.2. Will give 2 PRBC's CBC in AM Fe 28 and transferrin sat 11%, most likely d/t blood loss, will given cautious infussion of iron sucrose as PRBC's also deliver iron. BUN 39 to 45 most likley d/t GI disgestion off blood as Cr came back to baseline of 1.1 s/p max at 1.4 on 07/20 Surgical consult: As per discussion with Dr. Sparrow, INR around 1.5 and less than 2 would be safe for upper and lower endoscopy. - Considering FFP VS vitamin K and discussed with Dr. Ryan: vitamin K 2.5 mg po once -On schedule for Wednesday with Dr. Sparrow; -Dr Ryan's notes stated: NPO after midmight on Wednesday; prep prep on Wednesday w INR nearing goal for prodedure -Recommended venofer and IVF when NPO -Bridging with heparin, but the patient is still therapeutic . Will reconsider post-procedure on Wednesday -No bridging for a couple of days as per Dr. 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 Sparrow (5) H/O prosthetic aortic valve replacement: Status: Chronic Assessment and plan: As previously stated: Patient has had his aortic valve replaced twice, first with a bovine valve and then with mechanical valve he presently has for the last 35 years. Both of these procedures were performed in [place], [place]. Cardiology consult : No bridge needed for the short term ( couple of days ) for the mechanical aortic valve to be able to perform endoscopy LVEF 60% on echo from 07/18 with trace to mild aortic regurgitation (6) Discharge planning issues: Status: Acute Assessment and plan: Discharge home when medically stable after endoscopy Discussed with Dr Miles Subjective Subjective Patient reports: no new complaints, feels better, tolerating liquids well, flatus, bowel movement, blood in stool and afebrile; denies still having pain, diarrhea, nausea or shortness of breath Exam Narrative Exam Narrative: Constitutional The patient is lying in bed comfortable and cooperative during the interview; family at bedside- all questions answered The patient is without acute distress, appears well-perfused HENMT: Facial structures with normal appearance Neuro:alert and oriented X4 . Resp: clear lungs bilaterally Cardio: regular rhythm, telemetry SR HR 84 thois AM S1, S2, no murmur GI: Abdomen is not distended, soft and non tender, bowel sounds are present Back/spine/Pelvis: No back tenderness Extremities: strength 5/5 to bilateral lower and upper extremities Psych: RASS 0, congruent mood and normal affect. Objective Last Vital Signs Temp 36.0 C L 07/24/23 07:47 Pulse 93 H 07/24/23 07:47 Resp 18 07/24/23 07:47 BP 114/69 07/24/23 07:47 Pulse Ox 96 07/24/23 07:47 Laboratory Results - last 24 hr 07/21/23 07/23/23 07/23/23 19:28 06:10 15:20 WBC 3.42 L RBC 2.83 L Hgb 8.7 L D Hct 26.5 L MCV 94 MCH 30.7 MCHC 32.8 RDW 16.7 H Plt Count 78 L MPV 10.6 Immature Gran % 1.8 Neutrophils % 56.9 Lymphocytes % 35.7 Monocytes % 5.6 Eosinophils % 0.0 Basophils % 0.0 Nucleated RBC % 0.9 H Absolute Neutrophils 1.95 Absolute Lymphocytes 1.22 Absolute Monocytes 0.19 Absolute Eosinophils 0.00 Absolute Basophils 0.00 RBC Morphology Hypochromasia PT 33.1 H INR 3.7 H Sodium Potassium Chloride Carbon Dioxide Anion Gap BUN Creatinine Est GFR (CKD-EPI 2020) Glucose Calcium Total Bilirubin 0.9 Conjugated Bilirubin 0.2 AST 18 ALT 15 L Alkaline Phosphatase 33 L Total Protein 4.8 L Albumin 2.5 L Add-On Test Request DONE ABO/Rh B Positive Antibody Screen NEGATIVE Crossmatch See Detail 07/24/23 06:10 WBC 4.45 RBC 2.40 L Hgb 7.5 L Hct 22.8 L MCV 95 MCH 31.3 MCHC 32.9 RDW 17.2 H Plt Count 82 L MPV 11.1 H Immature Gran % 2.0 Neutrophils % 72.3 Lymphocytes % 21.3 Monocytes % 4.0 Eosinophils % 0.2 Basophils % 0.2 Nucleated RBC % 0.9 H Absolute Neutrophils 3.21 Absolute Lymphocytes 0.95 L Absolute Monocytes 0.18 Absolute Eosinophils 0.01 Absolute Basophils 0.01 RBC Morphology See Below Hypochromasia 2+ PT 25.3 H INR 2.7 H Sodium 142 Potassium 3.9 Chloride 111 H Carbon Dioxide 22.2 Anion Gap 8.8 BUN 45 H Creatinine 1.1 Est GFR (CKD-EPI 2020) 66.19 Glucose 122 H Calcium 7.9 L Total Bilirubin Conjugated Bilirubin AST ALT Alkaline Phosphatase Total Protein Albumin Add-On Test Request ABO/Rh Antibody Screen Crossmatch Time Spent with Patient Time Spent with Patient: >50 minutes Time was spent: preparing to see the patient(eg.review tests), obtaining and/or reviewing separately otained hiistory, ordering medications,tests, procedures, referring, communicating with other health home child care provider, indepentently interpreting results, counseling the patient and care coordination
[2023-07-24] MEDS: Phytonadione 5 MG TABLET 2.5 MG PO (09:32)
[2023-07-24] MEDS: IRON SUCROSE COMPLEX 100 MG in Normal Saline 100 ML 400 MG IVPB (10:37)
[2023-07-24 16:19] LABS: HCT 21.2 % (40.0-50.0); MCH 30.5 pg (27.0-33.0); MCHC 32.1 % (32.0-36.0); MCV 95 fL (80-95); MPV 10.4 fL (8.0-11.0); RBC 2.23 10^6/uL (4.36-5.78); RDW-SD 57.1 fL; WBC 4.83 10^3/uL (4.4-10.8)
[2023-07-24 16:39] LABS: Platelet Count 81 10^3/uL (130-400)
[2023-07-24 16:40] LABS: HGB 6.8 g/dL (13.5-17.5); RDW 17.5 % (11.8-14.1)
[2023-07-24] MEDS: Acetaminophen 325 MG TAB PO (21:25)
--- NOTE | 2023-07-24 21:35 | NUR.NOTE ---
Nursing Note: Pre-medicated pt with 25 mg diphenhydramine and 650 mg acetaminophen per MD order.
[2023-07-24] MEDS: Polyethylene Glycol 3350 17 GM PACKET PO (21:57)
[2023-07-24] MEDS: Pantoprazole 40 MG VIAL IVP (21:58)
[2023-07-24] MEDS: Atorvastatin 40 MG TAB 80 MG PO (21:58)
[2023-07-25] VITALS (7 sets, daily range): BP systolic 121–150; BP diastolic 62–72; PULSE 89–96; RESP 18; TEMP 37–37.4; O2SAT 96–99
[2023-07-25 04:20] LABS: Absolute Eosinophil Count 0.01 10^3/uL (0.0-0.7); Absolute Lymphocyte Count 1.01 10^3/uL (1.2-3.4); Absolute Neutrophil Count 3.76 10^3/uL (1.2-6.7); Eosinophils % 0.2 %; HCT 25.2 % (40.0-50.0); HGB 8.3 g/dL (13.5-17.5); Immature Grans % 1.9 %; Lymphocytes % 19.5 %; MCH 30.5 pg (27.0-33.0); MCHC 32.9 % (32.0-36.0); MCV 93 fL (80-95); MPV 10.3 fL (8.0-11.0); Monocytes % 5.8 %; Neutrophils % 72.6 %; Nucleated RBC 1.2 % (0.0-0.3); RBC 2.72 10^6/uL (4.36-5.78); RDW 16.7 % (11.8-14.1); RDW-SD 51.8 fL; WBC 5.18 10^3/uL (4.4-10.8)
[2023-07-25 04:30] LABS: BUN 39 mg/dL (7-18); CREATININE 1.1 mg/dL (0.70-1.30); Calcium 7.6 mg/dL (8.5-10.1); Chloride 111 mmol/L (98-107); Estimated GFR 66.19 (mL/min/1.73m2); Glucose 114 mg/dL (74-106); Potassium 3.6 mmol/L (3.5-5.1); Sodium 142 mmol/L (136-145)
[2023-07-25 04:34] LABS: Hypochromasia 1+; Platelet Count 80 10^3/uL (130-400)
[2023-07-25 04:35] LABS: INR 1.5 (0.9-1.1)
[2023-07-25] MEDS: Sucralfate 1 GM TAB PO ×3 (05:56→17:30)
--- NOTE | 2023-07-25 07:22 | W.PM.PROGNOT ---
Date of Service Date of service: 07/25/23 Time of Service: 11:30 Assessment and Plan Assessment and plan (1) Anemia: Status: Chronic Assessment and plan: 82-year-old man with GI bleeding. He is hemodynamically stable. INR subtherapeutic now. Defer decision whether or not to bridge to the medical team and cardiology. He is getting his bowel prep this afternoon and will have an upper and lower endoscopy tomorrow. Overall plan: Bowel prep this afternoon N.p.o. after midnight Oral medications are okay Decision to bridge per medical team Subjective Subjective Interval history since last seen: No issues or complaints. Exam Narrative Exam Narrative: General: Nontoxic, comfortable and interactive Neuro: Alert and oriented x 3 Psych: Good mood and affect, good insight and understanding into his conditions Objective Last Vital Signs Temp 99.0 F 07/25/23 02:58 Pulse 94 H 07/25/23 02:58 Resp 18 07/25/23 02:58 BP 139/70 07/25/23 02:58 Pulse Ox 98 07/25/23 02:58 Laboratory Results - last 24 hr 07/21/23 07/24/23 07/24/23 19:28 06:10 16:08 WBC 4.83 RBC 2.23 L Hgb 6.8 L* Hct 21.2 L MCV 95 MCH 30.5 MCHC 32.1 RDW 17.5 H Plt Count 81 L MPV 10.4 Immature Gran % Neutrophils % Lymphocytes % Monocytes % Eosinophils % Basophils % Nucleated RBC % Absolute Neutrophils Absolute Lymphocytes Absolute Monocytes Absolute Eosinophils Absolute Basophils RBC Morphology Hypochromasia PT 25.3 H INR 2.7 H Sodium Potassium Chloride Carbon Dioxide Anion Gap BUN Creatinine Est GFR (CKD-EPI 2020) Glucose Calcium Add-On Test Request ABO/Rh B Positive Antibody Screen NEGATIVE Crossmatch See Detail 07/24/23 07/25/23 07/25/23 Unknown 04:00 05:35 WBC 5.18 RBC 2.72 L Hgb 8.3 L Hct 25.2 L MCV 93 MCH 30.5 MCHC 32.9 RDW 16.7 H Plt Count 80 L MPV 10.3 Immature Gran % 1.9 Neutrophils % 72.6 Lymphocytes % 19.5 Monocytes % 5.8 Eosinophils % 0.2 Basophils % 0.0 Nucleated RBC % 1.2 H Absolute Neutrophils 3.76 Absolute Lymphocytes 1.01 L Absolute Monocytes 0.30 Absolute Eosinophils 0.01 Absolute Basophils 0.00 RBC Morphology See Below Hypochromasia 1+ PT 15.0 H Cancelled INR 1.5 H Cancelled Sodium 142 Potassium 3.6 Chloride 111 H Carbon Dioxide 22.0 Anion Gap 9.0 BUN 39 H Creatinine 1.1 Est GFR (CKD-EPI 2020) 66.19 Glucose 114 H Calcium 7.6 L Add-On Test Request Cancelled ABO/Rh B Positive Antibody Screen NEGATIVE Crossmatch Time Spent with Patient Time Spent with Patient: <25 minutes Time was spent: indepentently interpreting results, counseling the patient and care coordination
[2023-07-25] MEDS: Docusate Sodium 100 MG CAP PO ×3 (09:04→20:27)
[2023-07-25] MEDS: Triamcinolone 0.1% CR 15 GM TUBE TP ×3 (09:04→20:27)
[2023-07-25] MEDS: Normal Saline Flush 10 ML SYR IVP ×2 (09:04→20:25)
--- NOTE | 2023-07-25 10:49 | PGE_ITS ---
Date of Service Date of service: 07/25/23 Time of Service: 18:57 Assessment and Plan Assessment and plan (1) Exertional chest pain: Start date: 07/19/23 Status: Acute Assessment and plan: Resolved without any recurrence during stay Most likely d/t acute blood loss anemia No further chest pain, RA Troponins: trending down; max 108.8 (2) Acute blood loss anemia: Start date: 07/19/23 Status: Acute Assessment and plan: Most likely d/t GIB w report of melena; guaic pending 3 PRBC's given on 07/21 2 PRBC's on 07/22 and 07/23 H&H this PM 7.7 and 22.9 from 8.3 and 25.2 this morning CBC in AM Fe 28 and transferrin sat 11%, most likely d/t blood loss, previous infusion of iron sucrose completed in prior days; the packed red blood cells also contain iron BUN 39 most likley d/t GI disgestion off blood as Cr remains at baseline of 1.1 s/p max at 1.4 on 07/20 Surgical consult: As per discussion with Dr. Sparrow, INR around 1.5 and less than 2 would be safe for upper and lower endoscopy. - Considering FFP VS vitamin K and discussed with Dr. Ryan: vitamin K 2.5 mg po once yesterday and the day prior -On schedule for Wednesday with Dr. Sparrow; -Dr Ryan's notes stated: NPO after midmight on Wednesday; prep prep on Wednesday w INR at 1.5 in the lower range of the goal, considering bridging status post OR after discussion with the surgical team - IVF when NPO -Bridging with heparin discussed. Will reconsider post-procedure on Wednesday as patient is now subtherapeutic -Consulted with Dr. Gonzales re: early bowel prep but will maintain course as per surgical team. Family reassured that as per surgery more bleeding wouldn't occur due to bowel prep -No bridging for a couple of days as per Dr. Esposito from Cardiology d/t increased risks of bleeding. Repeat INR today was 1.5 Daily INR Diet is clears now n.p.o. past midnight..As per Dr. 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 Sparrow (5) H/O prosthetic aortic valve replacement: Status: Chronic Assessment and plan: As previously stated: Patient has had his aortic valve replaced twice, first with a bovine valve and then with mechanical valve he presently has for the last 35 years. Both of these procedures were performed in [place], [place]. Cardiology consult : No bridge needed for the short term ( couple of days ) for the mechanical aortic valve to be able to perform endoscopy LVEF 60% on echo from 07/18 with trace to mild aortic regurgitation (6) Discharge planning issues: Status: Acute Assessment and plan: Discharge home when medically stable after endoscopy Discussed with Dr Sultana Subjective Subjective Patient reports: no new complaints, tolerating liquids well, voiding w/o difficulty, flatus and bowel movement (07/23); denies still having pain, diarrhea, nausea, vomiting, shortness of breath or fever Exam Narrative Exam Narrative: HENMT: Facial structures with normal appearance Neuro:alert and oriented X4 . Resp: clear lungs bilaterally Cardio: regular rhythm, telemetry SA HR 80-90 this AM S1, S2, no murmur GI: Abdomen is not distended, soft and non tender, bowel sounds are present Back/spine/Pelvis: No back tenderness Psych: RASS 0, congruent mood and normal affect. Objective Last Vital Signs Temp 37.3 C 07/25/23 08:16 Pulse 96 H 07/25/23 08:16 Resp 18 07/25/23 08:16 BP 123/65 07/25/23 08:16 Pulse Ox 99 07/25/23 08:16 Laboratory Results - last 24 hr 07/21/23 07/24/23 07/25/23 19:28 16:08 04:00 WBC 4.83 5.18 RBC 2.23 L 2.72 L Hgb 6.8 L* 8.3 L Hct 21.2 L 25.2 L MCV 95 93 MCH 30.5 30.5 MCHC 32.1 32.9 RDW 17.5 H 16.7 H Plt Count 81 L 80 L MPV 10.4 10.3 Immature Gran % 1.9 Neutrophils % 72.6 Lymphocytes % 19.5 Monocytes % 5.8 Eosinophils % 0.2 Basophils % 0.0 Nucleated RBC % 1.2 H Absolute Neutrophils 3.76 Absolute Lymphocytes 1.01 L Absolute Monocytes 0.30 Absolute Eosinophils 0.01 Absolute Basophils 0.00 RBC Morphology See Below Hypochromasia 1+ PT 15.0 H INR 1.5 H Sodium 142 Potassium 3.6 Chloride 111 H Carbon Dioxide 22.0 Anion Gap 9.0 BUN 39 H Creatinine 1.1 Est GFR (CKD-EPI 2020) 66.19 Glucose 114 H Calcium 7.6 L ABO/Rh B Positive B Positive Antibody Screen NEGATIVE NEGATIVE Crossmatch See Detail 07/25/23 05:35 WBC RBC Hgb Hct MCV MCH MCHC RDW Plt Count MPV Immature Gran % Neutrophils % Lymphocytes % Monocytes % Eosinophils % Basophils % Nucleated RBC % Absolute Neutrophils Absolute Lymphocytes Absolute Monocytes Absolute Eosinophils Absolute Basophils RBC Morphology Hypochromasia PT Cancelled INR Cancelled Sodium Potassium Chloride Carbon Dioxide Anion Gap BUN Creatinine Est GFR (CKD-EPI 2020) Glucose Calcium ABO/Rh Antibody Screen Crossmatch Time Spent with Patient Time Spent with Patient: >50 minutes Time was spent: preparing to see the patient(eg.review tests), obtaining and/or reviewing separately otained hiistory, ordering medications,tests, procedures, referring, communicating with other health critical care nurse practitioner, indepentently interpreting results, counseling the patient and care coordination
[2023-07-25 11:09] LABS: Lab Add On Test DONE
[2023-07-25 11:20] LABS: Iron 212 ug/dL (65-175); Total Iron Binding Capacity 228 ug/dL (250-450); Transferrin Sat 93 % (20-55)
[2023-07-25 11:33] LABS: Ferritin 264 ng/mL (26-388)
[2023-07-25] MEDS: Bisacodyl 5 MG TABEC 10 MG PO ×2 (14:50→20:28)
[2023-07-25 17:12] LABS: HCT 22.9 % (40.0-50.0); HGB 7.7 g/dL (13.5-17.5); MCH 31.3 pg (27.0-33.0); MCHC 33.6 % (32.0-36.0); MCV 93 fL (80-95); MPV 11.2 fL (8.0-11.0); RBC 2.46 10^6/uL (4.36-5.78); RDW-SD 54.6 fL; WBC 4.79 10^3/uL (4.4-10.8)
[2023-07-25 17:25] LABS: RDW 17.6 % (11.8-14.1)
[2023-07-25 17:26] LABS: Platelet Count 85 10^3/uL (130-400)
--- NOTE | 2023-07-25 19:23 | COLE_ITS ---
Date of service: 07/26/23 Time of Service: 14:37 Colonoscopy Report Date of procedure: 07/26/23 Pre-op diagnosis general: Anemia Post-op diagnosis procedure note: other (Gastrointestinal bleeding) Procedure: EGD and colonoscopy Surgeon: Harlan Sparrow Anesthesia Type: General:No Airway Estimated blood loss (mL): 0 Pathology: none sent Complications: None Disposition: PACU Indications: Umesh is an 82 year old man with anemia and heme positive stools. He needs a diagnostic EGD and colonoscopy in an effort to identify and treat the source of blood loss. Prep: Miralax/Dulcolax Procedure Start Time: 13:28 Procedure End Time: 14:00 Retraction Time: 8 Findings: Normal GE junction at 40 cm, trace evidence of recent bleeding within the stomach. No evidence of gastritis or stomach ulcers. Polypoid mass on the pylorus without stigmata of recent bleeding. Fresh blood within the duodenum. Mild duodenitis within the duodenal bulb. Diverticulosis with melena Procedure Description: After the initiation of anesthesia, and with the assistance of a bite block, I advanced a standard gastroscope through the mouth past the hypopharynx and into the esophagus.? Under the direct vision of the scope, I advanced down the esophagus towards the stomach.? The upper, mid, and lower esophagus were all normal. The GE junction and Z-line were encountered at 40 cm from the incisors. This was normal. I advanced into the stomach. There were trace amounts of what appeared to be old blood. Retroflexion was performed. All blood clots were all irrigated, and there was no evidence of any gastritis. I did not see any ulcers along the underside of the GE junction, the gastric cardia, or the upper portion of the gastric body. The camera was turned antegrade and advanced down towards the incisura. Again, there were small areas of what appeared to be old clotted blood in the gastric antrum adjacent to the pylorus. These were all irrigated clear. I did not see any ulcers here. There was a polypoid mass arising from the pylorus. There was no stigmata of any recent bleeding along this. In light of the patient's anemia, I elected to forego polypectomy at this point. I advanced the camera across the pylorus into the duodenum. Within the duodenal bulb or several areas of duodenitis. Although they were inflamed, I did not see any suggestion of active bleeding here. There were no visible vessels in any of the areas of erythema. There was however fresh appearing blood within the duodenum. I insufflated the duodenum, and using combination of insufflation as well as irrigation, I advanced down to what I believe is the second portion of the duodenum. I could not find the ampulla Vater. I took several passes across this area, again irrigating everything clear, trying to find any evidence of ulceration. Although I was not able to find any discrete ulcers, there were periodic episodes where there appeared to be fresh blood refluxing back up towards me. With everything I could visualize irrigated clear, I gently withdrew back up through the pyloric bulb into the stomach 1 again. As mentioned above, I did not see any active signs of bleeding in any portion of the conducted exam. At that point, I emptied the stomach, and brought the camera out along the length of the esophagus. Next, we rolled Umesh into the left lateral decubitus position. External anorectal exam was normal. Digital rectal exam was normal. I advanced a colonoscope into the rectal vault. There was quite a bit of melena. I irrigated the rectum clear, and slowly began advancing towards the cecum. Using a combination of irrigation and insufflation, I was able to get all the way across to the cecum. There was melena staining throughout the entire length of the colon. There was no evidence of any red blood to suggest the colon as a source. I then began withdrawing the camera. There is sigmoid diverticulosis, again however I do not see any signs of bleeding here. Although the colonoscopy was nondiagnostic in terms of small polyps, clearly, there are no sites of active bleeding within any portion of the large intestine, and given the findings of the EGD, this is almost certainly a more proximal bleed. Once I entered the stomach, I performed a brief inspection, followed by retroflexion towards the gastric cardia.? This appeared normal.? After that, I gently advanced the scope around the incisura angularis and examined the pylorus.? This also appeared normal.? Next, I advanced the scope through the pylorus into the duodenum.? The mucosa was pink and healthy appearing.? There were no abnormalities.? I was able to visualize bile draining into the duodenum through the ampulla Vater. ?Next, I began retracting the endoscope.? Again, I returned to the stomach which was carefully examined once again.? I then gently desufflated some of the stomach, and withdrew the endoscope into the distal esophagus. []. ?Finally, I withdrew the scope along the length of the esophagus taking great care to examine the entirety of the mucosa.? I did not appreciate any abnormalities. [place] Bowel Prep [place] Bowel Prep Right Colon: 2 Left Colon: 2 Transverse Colon: 2 Total Score: 6
[2023-07-25] MEDS: Polyethylene Glycol 3350 238 GM BTL PO (20:25)
[2023-07-25] MEDS: Pantoprazole 40 MG VIAL IVP (20:26)
[2023-07-25] MEDS: Atorvastatin 40 MG TAB 80 MG PO (20:27)
[2023-07-26] VITALS (73 sets, daily range): BP systolic 104–133; BP diastolic 49–99; PULSE 62–125; RESP 14–23; TEMP 36.6–37.1; O2SAT 93–100; BMI 28.3
[2023-07-26] MEDS: Normal Saline Flush 10 ML SYR IVP ×3 (00:06→20:17)
[2023-07-26] MEDS: Lactated Ringers 1,000 ML 75 ML IV (00:06)
[2023-07-26] MEDS: Sucralfate 1 GM TAB PO ×4 (00:11→20:11)
[2023-07-26 07:07] LABS: Absolute Basophil Count 0.01 10^3/uL (0.0-0.2); Absolute Eosinophil Count 0.02 10^3/uL (0.0-0.7); Absolute Lymphocyte Count 0.85 10^3/uL (1.2-3.4); Absolute Monocyte Count 0.27 10^3/uL (0.1-0.8); Absolute Neutrophil Count 3.42 10^3/uL (1.2-6.7); Basophils % 0.2 %; Eosinophils % 0.4 %; HCT 22.7 % (40.0-50.0); HGB 7.5 g/dL (13.5-17.5); Immature Grans % 2.1 %; Lymphocytes % 18.2 %; MCH 30.9 pg (27.0-33.0); MCV 93 fL (80-95); Monocytes % 5.8 %; Neutrophils % 73.3 %; Nucleated RBC 0.9 % (0.0-0.3); RBC 2.43 10^6/uL (4.36-5.78); RDW 18.2 % (11.8-14.1); WBC 4.67 10^3/uL (4.4-10.8)
[2023-07-26 07:11] LABS: INR 1.3 (0.9-1.1)
[2023-07-26 07:12] LABS: Anion Gap 9.8 mmol/L (3-11); BUN 27 mg/dL (7-18); CO2 21.2 mmol/L (21.0-32.0); CREATININE 1.2 mg/dL (0.70-1.30); Calcium 7.5 mg/dL (8.5-10.1); Chloride 108 mmol/L (98-107); Estimated GFR 59.63 (mL/min/1.73m2); Glucose 127 mg/dL (74-106); Potassium 3.2 mmol/L (3.5-5.1); Sodium 139 mmol/L (136-145)
[2023-07-26 07:22] LABS: Anisocytosis 1+; Diff Comment Diff Reviewed; Platelet Count 90 10^3/uL (130-400); Polychromasia Present
[2023-07-26 07:39] LABS: Lab Add On Test DONE
[2023-07-26 07:48] LABS: Magnesium 1.7 mg/dL (1.8-2.4)
--- NOTE | 2023-07-26 08:53 | PGE_ITS ---
Date of Service Date of service: 07/26/23 Time of Service: 08:53 Assessment and Plan Assessment and plan (1) Exertional chest pain: Start date: 07/19/23 Status: Acute Assessment and plan: Resolved without any recurrence during stay Troponins: trending down; max 108.8 (2) Acute blood loss anemia: Start date: 07/19/23 Status: Acute Assessment and plan: Most likely d/t GIB w report of melena; guaic pending 7 PRBC's from 07/21 to 07/23 H&H 7.5 and 22.7 from 7.7 and 22.9 on 07/24 Repeat CBC this PM and in AM Fe 28 and transferrin sat 11%, most likely d/t blood loss, previous infusion of iron sucrose completed in prior days; the packed red blood cells also contain iron BUN 27 most likley d/t GI disgestion off blood as Cr remains at baseline of 1.2 s/p max at 1.4 on 07/[address] Esposito -No bridging for a couple of days as per Dr. Esposito from Cardiology d/t increased risks of bleeding. Surgical consult: As per discussion with Dr. Sparrow, INR around 1.5 and less than 2 would be safe for upper and lower endoscopy. - Considering FFP VS vitamin K and discussed with Dr. Ryan: vitamin K 2.5 mg po once yesterday and the day prior -On schedule for Wednesday with Dr. Sparrow; -Dr Ryan's notes stated: NPO after midmight on Wednesday; prep prep on Wednesday w INR at 1.5 in the lower range of the goal, considering bridging status post OR after discussion with the surgical team - IVF when NPO -Bridging with heparin discussed. Will reconsider post-procedure on Wednesday as patient is now subtherapeutic -Consulted with Dr. Gonzales re: early bowel prep but will maintain course as per surgical team. Family reassured that as per surgery more bleeding wouldn't occur due to bowel prep Repeat INR today was 1.5 Daily INR Diet is clears now n.p.o. past midnight..As per Dr. 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 Sparrow (5) H/O prosthetic aortic valve replacement: Status: Chronic Assessment and plan: As previously stated: Patient has had his aortic valve replaced twice, first with a bovine valve and then with mechanical valve he presently has for the last 35 years. Both of these procedures were performed in [place], [place]. Cardiology consult : No bridge needed for the short term ( couple of days ) for the mechanical aortic valve to be able to perform endoscopy LVEF 60% on echo from 07/18 with trace to mild aortic regurgitation (6) Discharge planning issues: Status: Acute Assessment and plan: Discharge home when medically stable after endoscopy Discussed with Dr Sultana Subjective Subjective Patient reports: no new complaints, voiding w/o difficulty, flatus, bowel movement, diarrhea and blood in stool; denies nausea, vomiting, shortness of breath or fever Exam Narrative Exam Narrative: Neuro:alert and oriented X4 . Resp: clear lungs bilaterally Cardio: regular rhythm, telemetry SA HR 80-90 this AM S1, S2, no murmur GI: Abdomen is not distended, soft and non tender, bowel sounds are present Back/spine/Pelvis: No back tenderness Psych: RASS 0, congruent mood and normal affect. Objective Last Vital Signs Temp 37.0 C 07/26/23 07:39 Pulse 86 07/26/23 07:39 Resp 20 07/26/23 07:39 BP 114/72 07/26/23 07:39 Pulse Ox 95 07/26/23 07:39 Laboratory Results - last 24 hr 07/25/23 07/25/23 07/26/23 04:00 17:00 06:40 WBC 4.79 4.67 RBC 2.46 L 2.43 L Hgb 7.7 L 7.5 L Hct 22.9 L 22.7 L MCV 93 93 MCH 31.3 30.9 MCHC 33.6 33.0 RDW 17.6 H 18.2 H Plt Count 85 L 90 L MPV 11.2 H 11.0 Immature Gran % 2.1 Neutrophils % 73.3 Lymphocytes % 18.2 Monocytes % 5.8 Eosinophils % 0.4 Basophils % 0.2 Nucleated RBC % 0.9 H Absolute Neutrophils 3.42 Absolute Lymphocytes 0.85 L Absolute Monocytes 0.27 Absolute Eosinophils 0.02 Absolute Basophils 0.01 RBC Morphology See Below Polychromasia Present Anisocytosis 1+ PT 13.0 H INR 1.3 H Sodium 139 Potassium 3.2 L Chloride 108 H Carbon Dioxide 21.2 Anion Gap 9.8 BUN 27 H Creatinine 1.2 Est GFR (CKD-EPI 2020) 59.63 Glucose 127 H Calcium 7.5 L Magnesium 1.7 L Iron 212 H TIBC 228 L Transferrin % Sat 93 H Ferritin 264 Add-On Test Request DONE DONE
[2023-07-26] MEDS: POTASSIUM CHLORIDE 10 MEQ/100 ML BAG 100 MEQ IVINF ×4 (10:05→16:16)
[2023-07-26] MEDS: MAGNESIUM SULFATE 2 GM/50 ML BAG IVINF (10:06)
--- NOTE | 2023-07-26 10:20 | CMPROGNOTE_ITS ---
Date of service: 07/26/23 Time of Service: 10:20 Care Management Progress Note Progress Note Text Progress Note Text: S/O: Umesh was sitting up in bed when CM met with him. His was visiting at the time and were discussing the results of the colonoscopy. per Umesh's Jessy, Dr. Sparrow found fresh bleeding in the duodenum but was unable to identify the source. His informed CM that she is very angry about the care that her received last week in the ED. He was seen for a possible GI bleed and discharged home. She shared that she feels if he had been admitted at that time, some of the current problems could have been addressed by now. She also stated that Dr. Sparrow told her that he was going to try to get Umesh transferred to a tertiary care hospital that has providers who specialize in these types of situations. [place] [facility] [place] [facility] as possibilities. CM stated that he might not go until tomorrow if they do not have a bed. Jessy became even more upset stating that it must be today. She stated that she didn't care if it was [place], [place], [place] or anywhere else, as long as was transferrewd today. ROZINA Schmidt, spoke with the family and confirmed that they were willing to have Umesh go further away if it meant getting him transferred sooner. A: 82 year old male admitted to [facility] on 07/21/23 with Exertional chest pain with GI bleed and acute blood loss anemia P: Umesh is being closely monitored and treated for acute blood loss anemia. He may need upper/lower scopes, surgical is consulted. Anticipate he will discharge home once medically ready for discharge. Family will transport. Services will be ordered, if needed. CM will continue to follow. SDOH(Care Management) Screening Will the Patient Participate in the Screening?: Declined to provide Do you worry about having a steady place to live?: no Problems where you live: no known problems In the past 12 months, have you had to go without electric, gas, oil or water in your home?: no Have you or anyone in your house had to go without enough food to eat?: no Has lack of transportation kept you from medical appointments or from doing things needed for daily living?: no Has anyone in your support network made you feel unsafe for any reason?: no
--- NOTE | 2023-07-26 12:06 | ANES.PREOP_ITS ---
General Info Date of Service Date Performed: 07/26/23 Height: 5 ft 8 in Weight: 84.6 kg Body Mass Index (BMI): 28.3 Surgical Procedure: Operation Date: 07/26/23 13:35 Proposed Procedure Side Surgeon p Colonoscopy/Gastroscopy Harlan Sparrow MD Meds Allergies and Home Medications Allergies Allergy/AdvReac Type Severity Reaction Status Date / Time PEACH SKINS AdvReac Other (See Uncoded 07/19/23 10:12 Comment) Home Medication Medication Instructions Recorded warfarin 5 mg tablet 5 mg PO Q OTHER DAY 06/30/23 pantoprazole 40 mg tablet,delayed 40 mg PO DAILY #30 tabs 07/19/23 release Current Visit Medications: Current Medications Generic Name Dose Route Start Last Admin Trade Name Freq PRN Reason Stop Dose Admin Acetaminophen 325 - 650 mg 07/21/23 22:38 07/24/23 21:25 Acetaminophen 325 Mg Tab PO 650 mg Q4H PRN PRN Administration Al Hydrox/Mg Hydrox/Simethicone 15 ml 07/21/23 22:38 Mylanta Double Strength Suspension 30 Ml Cup PO Q2H PRN PRN Atorvastatin Calcium 80 mg 07/22/23 20:00 07/25/23 20:27 Atorvastatin 40 Mg Tab PO 80 mg QPM LIANET Administration Bisacodyl 10 mg 07/25/23 13:15 07/25/23 14:50 Bisacodyl 5 Mg Tabec PO 10 mg DIRECTED LIANET Administration Docusate Sodium 100 mg 07/21/23 22:38 Docusate Sodium 100 Mg Cap PO TID PRN PRN Docusate Sodium 100 mg 07/23/23 16:45 07/26/23 10:41 Docusate Sodium 100 Mg Cap PO Not Given TID LIANET Ampicillin Sodium 1 gm/ Sodium 50 mls @ 100 mls/hr 07/26/23 07:30 Chloride IVPB [employer] LIANET Ringer's Solution 1,000 mls @ 75 mls/hr 07/25/23 23:55 07/26/23 00:06 IV 75 mls/hr INFUSION LIANET Administration IV Miscellaneous Supplies 1 each 07/21/23 22:45 Iv Access IV DIRECTED LIANET Magnesium Hydroxide 30 ml 07/21/23 22:38 Milk Of Magnesia 30 Ml Cup PO DAILY PRN PRN Nicotine 7 mg 07/23/23 16:43 Nicotine 7 Mg/24 Hr Patch TD DAILY PRN PRN Pantoprazole Sodium 40 mg 07/22/23 01:00 07/25/23 20:26 Pantoprazole 40 Mg Vial IVP 40 mg HS LIANET Administration Polyethylene Glycol 17 gm 07/21/23 22:38 07/24/23 21:57 Polyethylene Glycol 3350 17 Gm Packet PO 17 gm DAILY PRN PRN Administration Constipation Polyethylene Glycol 238 gm 07/25/23 20:00 07/25/23 20:25 Polyethylene Glycol 3350 238 Gm Btl PO 238 gm DIRECTED LIANET Administration Sodium Chloride 0 ml 07/21/23 18:46 07/26/23 00:06 Normal Saline Flush 10 Ml Syr IVP 10 ml PRN PRN Administration Sodium Chloride 0 ml 07/21/23 20:00 07/26/23 10:13 Normal Saline Flush 10 Ml Syr IVP 10 ml BID LIANET Administration Sodium Chloride 0 ml 07/21/23 18:46 Normal Saline 10 Ml Vial IJ DIRECTED PRN Sucralfate 1 gm 07/24/23 06:00 07/26/23 05:40 Sucralfate 1 Gm Tab PO 1 gm Q6H LIANET Administration Triamcinolone Acetonide 15 gm 07/24/23 20:00 07/25/23 20:27 Triamcinolone 0.1% Cr 15 Gm Tube TP 1 applic TID LIANET Administration PFSH Active Problems Active Problems: Problem Status Onset Code H/O mechanical aortic valve replacement Z95.2 Discharge planning issues Z02.9 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, 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 Diverticulosis of colon without diverticulitis K57.30 Acute blood loss anemia D62 Exertional chest pain R07.9 Upper GI bleed K92.2 Anemia D64.9 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.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 Sensorineural hearing loss (SNHL) of right ear with restricted hearing of left ear H90.A21 Sensorineural hearing loss of combined sites, bilateral 08/03/16 H90.3 Medical History Medical History diverticulosis adenoma colon polyp Prosthetic Aortic Valve Overweight Hearing loss bilat Surgical History Surgical History redo of aortic valve hernia/hydrocele repair Appendectomy Aortic valve replaced Tobacco Smoking/Tobacco Use Status: Current-Occasional Substance Use Substance use: Never Vital Signs and Lab Results Vital Signs Most Recent Vital Signs in EMR: Most Recent Vital Signs Temp Pulse Resp BP Pulse Ox 36.6 C 86 18 114/63 97 07/26/23 11:26 07/26/23 11:26 07/26/23 11:26 07/26/23 11:26 07/26/23 11:26 Lab Results 07/26/23 06:40 07/26/23 06:40 Blood Type / Crossmatch: 2 Antibody Screen NEGATIVE 07/25/23 Crossmatch See Detail 07/21/23 Complete Blood Count: 2 White Blood Count 4.67 10^3/uL (4.4-10.8) 07/26/23 06:40 Red Blood Count 2.43 10^6/uL (4.36-5.78) L 07/26/23 06:40 Hemoglobin 7.5 g/dL (13.5-17.5) L 07/26/23 06:40 Hematocrit 22.7 % (40.0-50.0) L 07/26/23 06:40 Platelet Count 90 10^3/uL (130-400) L 07/26/23 06:40 Complete Metabolic Panel: 2 Sodium 139 mmol/L (136-145) 07/26/23 06:40 Potassium 3.2 mmol/L (3.5-5.1) L 07/26/23 06:40 Chloride 108 mmol/L (98-107) H 07/26/23 06:40 Carbon Dioxide 21.2 mmol/L (21.0-32.0) 07/26/23 06:40 BUN 27 mg/dL (7-18) H 07/26/23 06:40 Creatinine 1.2 mg/dL (0.70-1.30) 07/26/23 06:40 Est GFR (CKD-EPI 2020) 59.63 (mL/min/1.73m2) 07/26/23 06:40 Magnesium 1.7 mg/dL (1.8-2.4) L 07/26/23 06:40 Calcium 7.5 mg/dL (8.5-10.1) L 07/26/23 06:40 Ionized Calcium Pending 07/26/23 10:40 Albumin 2.5 g/dL (3.4-5.0) L 07/23/23 06:10 Glucose 127 mg/dL (74-106) H 07/26/23 06:40 Liver Function Panel: 2 Alanine Aminotransferase (ALT/SGPT) 15 U/L (16-63) L 07/23/23 0 6:10 Aspartate Amino Transf (AST/SGOT) 18 U/L (15-37) 07/23/23 06:10 Coagulation Panel: 2 INR International Normalized Ratio 1.3 (0.9-1.1) H 07/26/23 06 :40 Prothrombin Time 13.0 sec (9.1-11.1) H 07/26/23 06:40 Activated Partial Thromboplast Time 30.8 sec (23.6-32.8) 18:50 Cardiac Panel: 2 Troponin I 106 ng/L (< or =60) H* 07/22/23 NT-Pro-B Natriuret Pep 294 pg/mL (<300) 07/19/23 Arterial Blood Gas: 2 No Data to Display Venous Blood Gas: 2 No Data to Display Pancreas Panel: 2 No Data to Display Thyroid Panel: 2 No Data to Display Infectious Disease: 2 No Data to Display Blood Cultures: 2 No Data to Display Toxicology Panel: 2 No Data to Display Imaging and Studies Imaging and Studies Study information below may be from another EMR and interpreted by another provider. Please see original notes in EMR for more complete details. EKG Summary: Conclusion Sinus tachycardia...rate> 99 Repolarization abnormality, prob rate related...ST dep, T neg, tachycardia consider atrial flutter 07/24/23 Echocardiogram Summary: Conclusion Normal left ventricular wall thickness chamber size and systolic function. EF is 60%. No segmental wall motion abnormalities are noted Right ventricle is not well-visualized Both atria are moderately dilated There is a mechanical aortic valve prosthesis. There is trace to mild aortic regurgitation. Mean gradient is 21 mmHg Mitral annular calcification. Mild mitral regurgitation Dilated aortic root and ascending aorta 07/19/23 Anesthesia Assessment and Plan Anesthesia History Personal History: No History of Anesthesia Complications Family History: No Family History of Anesthesia Complications Exercise Tolerance Exercise Tolerance: Metabolic Equivalents<4 Pertinent Negatives Pertinent Negatives: No Symptoms of GERD, No Major Cardiovascular Symptoms or Complaints and No Major Pulmonary Symptoms or Complaints Cardiac & Pulmonary Exam Cardiac Exam: Normal S1/S2 Heart Sounds Pulmonary Exam: Clear Bilateral Breath Sounds Implantable Cardiac Device Does patient have a Pacemaker or an ICD?: No Airway Exam Known Difficult Airway: No Mallampati Class: 2 Mouth Opening: Normal (> 3cm) Thyromental Distance: Greater than 3 cm Neck Range of Motion: Full ROM Neck Circumference: Normal Teeth Condition: Normal Dentition ASA Classification ASA Score: ASA 3 Emergency Case?: No NPO Status NPO Status: NPO Clears >2 hours, Solids >8 hours Anesthesia Plan Resuscitation Status: Full Code Anesthesia Technique: General Anesthesia Airway Planned: Natural Airway Monitors Used: Standard Monitors
--- NOTE | 2023-07-26 14:34 | W.ANESPOSTOP ---
Postoperative Evaluation Date, Time and Location Date Performed: 07/26/23 Time Performed: 14:35 Patient Location: PACU Vital Signs Most Recent Imported Vital Signs: Most Recent Vital Signs Temp Pulse Resp BP Pulse Ox 36.8 C 85 19 116/53 L 99 07/26/23 14:23 07/26/23 14:23 07/26/23 14:23 07/26/23 14:23 07/26/23 14:23 Pain Score Most Recent Pain Score: Most Recent Pain Score Pain Level [generalized] 0 07/24/23 20:05 Pain Level 0 07/26/23 11:26 Assessment Mental Status: Awake (Alert & Oriented to Patient Baseline) Airway and Respiratory Function: Patent airway with normal (patient baseline) respiratory exam Cardiovascular Function: Hemodynamically Stable Hydration Status: Adequately Hydrated Nausea & Vomiting: No Nausea or Vomiting Pain: Pt. Denies Any Pain Peripheral Nerve Block: Patient did not receive a nerve block
[2023-07-26 15:54] LABS: HCT 21.3 % (40.0-50.0); MCH 30.7 pg (27.0-33.0); MCHC 32.4 % (32.0-36.0); MCV 95 fL (80-95); MPV 11.1 fL (8.0-11.0); RBC 2.25 10^6/uL (4.36-5.78); RDW 18.1 % (11.8-14.1); RDW-SD 56.3 fL; WBC 3.58 10^3/uL (4.4-10.8)
[2023-07-26 15:57] LABS: HGB 6.9 g/dL (13.5-17.5)
[2023-07-26 16:11] LABS: Platelet Count 81 10^3/uL (130-400)
[2023-07-26 17:06] LABS: Ionized Calcium 1.07 mmol/L (1.14-1.35)
[2023-07-26] MEDS: Triamcinolone 0.1% CR 15 GM TUBE TP (17:07)
--- NOTE | 2023-07-26 17:35 | W.EVENT ---
Date of service: 07/26/23 Time of Service: 17:35 Event Note: Mr Smith is an 82 yr old male admitted w/ UGI bleed on 07/20, he has been on chronic warfarin for prosthetic AVR. He was symptomatic of exertional angina and dyspnea along w/ melena. He initially presented to the E.D on 07/18 and was found to be anemic w/ Hb 6.4 and was transfused 2 units of PRBC and started on protonix and dc from the ED w/ instruction to follow up w/ his PCP and to see GI as outpatient. Patient presented again on 07/20 to the ED this time w/ same symptoms but now w/ Hb 6.1 gm still having melanotic stools, dyspnea and chest tightness. Initial troponin were negative on 07/18 and again on 07/20 but then became mildly elevated at 103, 109 and 106 on 07/21. Echocardiogram was done 07/18 and showed normal LV size/function, LVEF 60%, no RWMA, biatrial enlargment and mechanical AVR w/ trace to mild AI, mild MR. He was transfused 2 units of PRBC on 07/20 and serial hemograms have been monitored. Hb responded to 7.7 gm on 07/21 and was given 1 unit of PRBC but then by 07/22 Hb dropped to 6.5 gm and he received 2 more units of PRBC rising to 8.7 grams but then dropping to 6.8 gm on 07/23 and receiving 2 more units of PRBC on 07/23 w/ drop in Hb to 7.7 gm on 07/24. Patient was put on protonix and carafate and his INR was reversed w/ vitamin K when his INR on admission was supratherapeutic 4.5 and initially it was allowed to passively drift down but w/ the need for repeat transfusions and continued elevated INR, surgical services who were consulted for endoscopy, wanted his INR below 1.5 before performing endoscopy thus necessitating the vitmain K (two 2.5 mg doses given). INR has come down to 1.3 today. Patient underwent c-scope and EGD. See Dr. Harlan Sparrow's notes for details. C scope showed diverticulosis but d/t melena in his colon evaluation for small polyps was inadequate but no hematochezia was seen. His EGD which had been performed first showed no ulcers of the esophagus or stomach but demonstrated old blood in the stomach which irrigated clear and no gastritis was seen however he has polypoid mass, which was not biopsied, however when the duodenum was irrigated there appeared to be fresh blood emanating from the 2nd portion of the duodenum. Dr. Sparrow could not get to the ampulla of Vater. Post procedure the patient's BP was noted to be trending down today, morning BP of 110's to 120 w/ diastolic BP in the 60's to 70 has decreased to 107/56 this afternoon and repeat Hb has dropped to 6.9 gm (as of 15:27) from 7.5 gm earlier this morning. Presently patient denies any CP or dyspnea or abdominal pain. I explained to him and his and the rest of his family (adult children) that he will be moved to our ICU for close monitoring of his vital signs and blood counts and receive transfusions of PRBC (2 now) and platelets (his platelets have been low since first seen in the E.D. on 07/18 when it was 97,000 but has declined since then to 81,000. I explained to them that he has been accepted to [facility] to their step down unit to the hospitalist service of Dr. Raymon Gonzalez. It was explained that the patient will likely need IR radiology intervention and GI as well to control his UGI bleeding. Dr. Gonzalez asked us to keep transfer center appraised if the patient became hemodynamically unstable. Exam: alert and oriented x 3, no acute distress Lungs: scattered rales, no rhonchi or wheezing Heart: regular no tachycardia, harsh systolic murmur w/ S2 aortic valve click along the RUSB but also heard along the rest of the precordium Abdomen: obese, soft, nontender Extremities: no edema A/P: UGI bleed: source likely distal duodenal, transfer to ICU for transfusion of PRBC and platelets, iv protonix, transfer to [facility] when bed becomes available. will dc his iv fluids and he will likely needs some iv lasix between units of PRBC and platelets to keep him out of CHF. Time Spent with Patient Time spent in critical care(minutes): 60 Time Spent Included: Coordination of care, Chart review, Documenting critically ill care, Time at immediate bedside, Discussing critically ill care with other medical staff (my PROVIDER RELATIONS COORDINATOR as well as ICU and med/surg nursing as well as [facility] provider) and Discussing Hx and/or treatment with family
--- NOTE | 2023-07-26 17:37 | W.PM.DS.N ---
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 Condition: Deteriorating Discharge Details Reason For Visit: Acute blood loss anemia,Hypoprothrombinemia,Exerti Admit Date/Time: 07/21/23 22:33 Admit Provider: Kian Stacy Attending Provider: Kian Stacy Primary Care Provider: Rafiq El Hospital Course Hospital Course: This 82-year-old male patient with a past medical history of mechanical aortic valve replacement 25 years ago on warfarin, recent visit to the emergency room on 07/19/2023 for similar symptoms and units of PRBC transfusion, presented on 07/21/2023 with complaints of exertional dyspnea with radiation to the left arm and into the jaw. The patient reported recent passing of minimal looking stool without hematochezia. On 07/19/2023 during his visit to the emergency room the patient had received unit of packed red blood cells for a hemoglobin at 6.4 with improvement of his exertional dyspnea. An echocardiogram was also completed revealing a left ejection fraction of 60% without segmental wall abnormality but trace to mild aortic regurgitation; the patient was discharged home with an INR within the therapeutic range at the time. In the ED on the day of admission EKG changes with ST segment depression laterally without dysrhythmia which improved with rest were noticed; 2 initial troponins were negative with the third troponin with slight increase at 103. Remarkable labs were H&H of 6.1 and and 19.7, platelets of 94, INR 4.5, creatinine 1.4. Abdominal and pelvic CT without contrast did not reveal any source of visible GI bleed nor evidence of day for colitis but was positive for diverticulosis. No acute pulmonary finding on chest x-ray noted. The patient receive 2 units of PRBC in the emergency room. The hospitalist was contacted and the patient admitted to the medical surgical floor as an inpatient for acute blood loss anemia, GI bleed, hypoprothrombinemia, exertional dyspnea. Surgery was consulted with the plan for upper and lower endoscopy once INR would be within the parameters of 2.0 and 1.5. A total of nine units of packed red-blood cells were oredered from 07/20 to 07/25 for the patient for H&H going from maximum of 8.3 & 25.2 and gradually dropping to 6.5 and 20.5 between blood transfusions. Warfarin was held on admission, and 2 doses of vitamin K 2.5 mg orally in 2 consecutive days were given with the INR at 1.3 today. The patient has been subtherapeutic for 2 consecutive days. Further troponin values stabilized with a max of 108 with the patient not experiencing any further cardiorespiratory distress during his inpatient stay. The patient continued to experience melena. Dr. Harlan Sparrow conducted an upper and lower endoscopy with negative findingof acute bleed for the lower scope but evidence of cely bleeding in the second portion of the duodenum without the possibility of identifying the source. Recommendation made for patient to be transferred for further specialty care such as interventional radiology or embolization. Due to the acute bleeding the patient could not be anticoagulated for is mechanical aortic valve. Calls were placed to [facility] and [facility] for transfer but due to capacity, the patient could not be accepted. Dr. Subhash Alatorre from the GI service at [facility] did suggest octreotide in cases of AVM and aortic stenosis as well as diagnostic imaging such as CT angiogram and a call back to them in the event of a positive finding for further interventional radiology interventions. Luma LAYNE from [facility] cardiology service recommended discussing with family members risk versus benefit of anticoagulation as the patient was acutely bleeding but did not offer fix recommendations. Dr. Viveros from [facility] GI service after evaluating the patient recommended transfer to [facility] stepdown unit. The patient was accepted at [facility] on the stepdown unit. Other calls were placed to [facility] but after reviewing the patient's history of stay no concrete decision for transfer was made status post discussion with hospitalist and IR medicine. As consultation with the ICU provider was still pending, they were informed that the patient had obtained a bed at [facility]. The patient was transferred to ICU as another 2 units of packed red blood cell were ordered for an H&H of 6.9 and 21.3, in the setting of a blood pressure trend going from 150/72 to 104/55 with heart rate in the 80s to 90s in less than 24 hours while the patient is not receiving any beta-blockers or calcium channel blockers. The patient also scheduled to receive a platelet transfusion initial platelets level at 94 on the day of admission and 81 today with a total of 9 units of PRBC ordered during the stay with acute GI bleed. The platelets will only be available on 07/26, thus the platelets will not be given prior to transferring to [facility]. Discussed with Home Meds and New Rx's Prescriptions: No Action warfarin 5 mg tablet 5 mg PO Q OTHER DAY Rx Instructions: // 7mg /// 5mg pantoprazole 40 mg tablet,delayed release (DR/EC) 40 mg PO DAILY Qty: 30 0RF Discharge Instructions Activity:: Activity as Tolerated Equipment/Supplies:: No Equipment Needed Diet:: As Tolerated DS: Summary Time Spent with Patient providing and/or coordinating discharge services: Greater than 30 minutes Status at Discharge Functional status at discharge: independent ambulation Overall status at discharge: patient is not back to baseline Mental Status: mental status grossly normal Speech and Movement: speech and movement normal Mood: congruent mood Affect: normal affect Quality:SDOH Health Related Social Needs: No Data to Display Exam Narrative Exam Narrative: Neuro:alert and oriented X4 . Resp: clear lungs bilaterally Cardio: regular rhythm, telemetry SA HR 80-90 this AM S1, S2, no murmur GI: Abdomen is not distended, soft and non tender, bowel sounds are present Back/spine/Pelvis: No back tenderness INT:pale and dusk skin Psych: RASS 0, congruent mood and normal affect. Psych Mental Status: mental status grossly normal Speech and Movement: speech and movement normal Mood: congruent mood Affect: normal affect DS: Data Vitals/I&O Vitals and I&O: Vital Signs Temperature 37.1 C 07/26/23 16:18 Temperature Source Tympanic 07/26/23 16:18 Pulse 84 07/26/23 16:18 Pulse Rhythm Regular 07/26/23 16:34 Pulse 80 07/22/23 01:20 Respiratory Rate 18 07/26/23 16:18 Respiratory Effort Normal, Non-Labored 07/26/23 16:34 Respiratory Depth Normal 07/26/23 16:34 Respiratory Pattern Normal 07/26/23 16:34 Blood Pressure 104/55 L 07/26/23 16:18 Blood Pressure Mean 89 07/22/23 00:31 Pulse Oximetry 97 07/26/23 16:18 Respiratory End-tidal CO2 28 07/26/23 14:35 Oxygen Delivery Method Room Air 07/26/23 16:18 Oxygen Flow Rate 0 07/26/23 16:18 Pain Level 0 07/26/23 16:18 Comment Temp called over radio 07/24/23 15:10 Intake & Output 07/25/23 07/26/23 07/26/23 23:59 11:59 23:59 Intake Total 2200 / 2210 100 / 860 760 / 860 Balance 2200 / 1910 100 / 860 760 / 860 Weight 84.6 kg 84.6 kg Intake: IV 100 / 860 760 / 860 Oral 2200 / 2200 Other: Urine Color Yellow Yellow Urine Appearance Clear Clear Urine Odor None Comment pT stated he voided. Stool Size Moderate Moderate Moderate Stool Characteristics Liquid Liquid Liquid Black Black Emesis Description None Voiding Methods Toilet Toilet Toilet Data Completed and Pending Labs on day of discharge: Labs from last 24 hours 07/26/23 07/26/23 07/26/23 22:00 17:19 15:27 WBC 3.58 L RBC 2.25 L Hgb Pending Pending 6.9 L* Hct Pending Pending 21.3 L MCV 95 MCH 30.7 MCHC 32.4 RDW 18.1 H Plt Count 81 L MPV 11.1 H Immature Gran % Neutrophils % Lymphocytes % Monocytes % Eosinophils % Basophils % Nucleated RBC % Absolute Neutrophils Absolute Lymphocytes Absolute Monocytes Absolute Eosinophils Absolute Basophils RBC Morphology Polychromasia Anisocytosis PT INR Sodium Potassium Chloride Carbon Dioxide Anion Gap BUN Creatinine Est GFR (CKD-EPI 2020) Glucose Calcium Ionized Calcium Magnesium Add-On Test Request ABO/Rh Antibody Screen Crossmatch 07/26/23 07/26/23 07/26/23 10:40 09:02 06:40 WBC 4.67 RBC 2.43 L Hgb 7.5 L Hct 22.7 L MCV 93 MCH 30.9 MCHC 33.0 RDW 18.2 H Plt Count 90 L MPV 11.0 Immature Gran % 2.1 Neutrophils % 73.3 Lymphocytes % 18.2 Monocytes % 5.8 Eosinophils % 0.4 Basophils % 0.2 Nucleated RBC % 0.9 H Absolute Neutrophils 3.42 Absolute Lymphocytes 0.85 L Absolute Monocytes 0.27 Absolute Eosinophils 0.02 Absolute Basophils 0.01 RBC Morphology See Below Polychromasia Present Anisocytosis 1+ PT 13.0 H INR 1.3 H Sodium 139 Potassium 3.2 L Chloride 108 H Carbon Dioxide 21.2 Anion Gap 9.8 BUN 27 H Creatinine 1.2 Est GFR (CKD-EPI 2020) 59.63 Glucose 127 H Calcium 7.5 L Ionized Calcium Pending Magnesium 1.7 L Add-On Test Request TNP DONE ABO/Rh Antibody Screen Crossmatch 07/25/23 04:00 WBC RBC Hgb Hct MCV MCH MCHC RDW Plt Count MPV Immature Gran % Neutrophils % Lymphocytes % Monocytes % Eosinophils % Basophils % Nucleated RBC % Absolute Neutrophils Absolute Lymphocytes Absolute Monocytes Absolute Eosinophils Absolute Basophils RBC Morphology Polychromasia Anisocytosis PT INR Sodium Potassium Chloride Carbon Dioxide Anion Gap BUN Creatinine Est GFR (CKD-EPI 2020) Glucose Calcium Ionized Calcium Magnesium Add-On Test Request ABO/Rh B Positive Antibody Screen NEGATIVE Crossmatch See Detail PFSH All Active Problems H/O mechanical aortic valve replacement (Acute) Discharge planning issues (Acute) 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) Diverticulosis of colon without diverticulitis (Chronic) Acute blood loss anemia (Acute) Exertional chest pain (Acute) Upper GI bleed (Acute) Anemia (Chronic) 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 ear (Acute) Sensorineural hearing loss (SNHL) of right ear with restricted hearing of left ear (Acute) Sensorineural hearing loss of combined sites, bilateral (Acute 08/03/16) Medical History diverticulosis adenoma colon polyp Prosthetic Aortic Valve Overweight Hearing loss bilat Surgical History redo of aortic valve hernia/hydrocele repair Appendectomy Aortic valve replaced Social History Smoking/Tobacco Use Status: Current-Occasional Smoking risk assessment performed?: Yes Drug use: Never Housing: house Do you feel safe at home: Yes Do you feel safe in your relationship?: Yes Time Spent with Patient Time Spent with Patient: >85 minutes Time was spent: preparing to see the patient(eg.review tests), obtaining and/or reviewing separately otained hiistory, ordering medications,tests, procedures, referring, communicating with other health director of patient care, indepentently interpreting results, counseling the patient and care coordination
--- NOTE | 2023-07-26 18:32 | NUR.NOTE ---
Nursing Note: Report given to Mago, RN, pt transferred to ICU
[2023-07-26 20:10] LABS: HCT 21.2 % (40.0-50.0)
[2023-07-26] MEDS: Pantoprazole 40 MG VIAL IVP (20:11)
[2023-07-26 20:12] LABS: HGB 6.9 g/dL (13.5-17.5)
[2023-07-26 21:44] LABS: HCT 26.2 % (40.0-50.0); HGB 8.5 g/dL (13.5-17.5)
== END 2023-07-26 21:45 | disposition short-term general hospital (02) | DRG 378 ==
LOC: ER 22:55 → MS 07-22 00:45 → ICU 07-26 19:32
PROVIDERS: Internal Medicine; Nurse Practitioner Acute Care; Surgery; Admitting Provider Family Medicine; Emergency Provider Registered Nurse Emergency; PCP Family Medicine; Visit Provider Family Medicine
PROC: 0DJ08ZZ Inspection of Upper Intestinal Tract, Via Natural or Artificial Opening Endoscopic (ICD-10-PCS; CPT 43235; principal; 2023-07-26 13:30)
DX: K29.81 Duodenitis with bleeding (principal); D62 Acute posthemorrhagic anemia; D68.4 Acquired coagulation factor deficiency; I24.89 Other forms of acute ischemic heart disease; K57.30 Diverticulosis of large intestine without perforation or abscess without bleeding; Z95.2 Presence of prosthetic heart valve; H90.3 Sensorineural hearing loss, bilateral; E66.3 Overweight; Z68.29 Body mass index [BMI] 29.0-29.9, adult; K31.7 Polyp of stomach and duodenum
CPT/HCPCS: 43235; 45378; 00123; 36415; 36430; 80048; 80053; 80061; 80076; 85027; 86850; 86900; 86901; 86920; 93005; 99222; 99231; 99285; 71045; 81003; 82270; 82330; 82607; 82728; 82746; 83540; 83550; 83735; 84484; 85014; 85018; 85025; 85610; 85730; 93010; 99223; 99233; 99239; 99291; J0131; J1200; J1756; J2001; J2371; J2470; J2598; J2704; J3475; J3480; J3490; P9016

== ENCOUNTER → 2023-07-22 14:49 | Outpatient (BNVA) | payer MEDICARE, SELFPAY | PROVIDERS: PCP Family Medicine; Referring Provider Family Medicine; Visit Provider Internal Medicine Cardiovascular Disease ==

== ENCOUNTER 2023-08-13 12:51 | Outpatient (CLI) | payer MEDICARE, SELFPAY ==
[2023-08-13 12:25] LABS: HCT 29.6 % (40.0-50.0); HGB 9.3 g/dL (13.5-17.5)
== END 2023-08-13 12:52 | disposition home or self-care (01) ==
LOC: LBO 12:51
PROVIDERS: PCP Family Medicine; Visit Provider Family Medicine
DX: K92.2 Gastrointestinal hemorrhage, unspecified (principal)
CPT/HCPCS: 36415; 85014; 85018

== ENCOUNTER 2023-08-16 13:19 | Outpatient (REF) | payer MEDICARE, SELFPAY ==
[2023-08-16 18:46] LABS: HCT 29.4 % (40.0-50.0); HGB 8.8 g/dL (13.5-17.5); MCH 28.9 pg (27.0-33.0); MCHC 29.9 % (32.0-36.0); MCV 97 fL (80-95); MPV 11.3 fL (8.0-11.0); Platelet Count 128 10^3/uL (130-400); RBC 3.04 10^6/uL (4.36-5.78); RDW 16.9 % (11.8-14.1); RDW-SD 59.3 fL
[2023-08-16 18:54] LABS: ALT 15 U/L (16-63); AST 18 U/L (15-37); Alkaline Phosphatase 79 U/L (46-116); BUN 21 mg/dL (7-18); Bilirubin, Total 0.4 mg/dL (0.2-1.0); CREATININE 1.3 mg/dL (0.70-1.30); Calcium 8.4 mg/dL (8.5-10.1); Chloride 108 mmol/L (98-107); Estimated GFR 54.17 (mL/min/1.73m2); Glucose 101 mg/dL (74-106); Sodium 142 mmol/L (136-145); Total Protein 6.1 g/dL (6.4-8.2)
[2023-08-16 18:55] LABS: C-Reactive Protein < 0.50 mg/dL (<or=0.5); INR 1.4 (0.9-1.1); Prothrombin Time 13.8 sec (9.1-11.1)
[2023-08-16 19:38] LABS: Absolute Monocyte Count 0.12 10^3/uL (0.1-0.8); Absolute Neutrophil Count 1.29 10^3/uL (1.2-6.7); Anisocytosis 1+; Atypical Lymphocytes % 5 %; Diff Comment Manual Differential; Polychromasia Present
== END 2023-08-16 13:20 | disposition home or self-care (01) ==
LOC: LBN 13:19
PROVIDERS: PCP Family Medicine; Visit Provider Student in an Organized Health Care Education/Training Program
DX: K92.2 Gastrointestinal hemorrhage, unspecified (principal); I35.0 Nonrheumatic aortic (valve) stenosis; Z95.2 Presence of prosthetic heart valve; Z79.01 Long term (current) use of anticoagulants
CPT/HCPCS: 80053; 85025; 85610; 86140

== ENCOUNTER 2023-08-23 20:16 | Outpatient (REF) | payer MEDICARE, SELFPAY ==
[2023-08-23 17:16] LABS: Abs Immature Grans 0.03 10^3/uL (0.0-0.06); Absolute Basophil Count 0.02 10^3/uL (0.0-0.2); Absolute Eosinophil Count 0.04 10^3/uL (0.0-0.7); Absolute Lymphocyte Count 0.74 10^3/uL (1.2-3.4); Absolute Monocyte Count 0.32 10^3/uL (0.1-0.8); Absolute Neutrophil Count 2.18 10^3/uL (1.2-6.7); Basophils % 0.6 %; Eosinophils % 1.2 %; HCT 25.5 % (40.0-50.0); HGB 7.7 g/dL (13.5-17.5); Immature Grans % 0.9 %; Lymphocytes % 22.2 %; MCH 28.5 pg (27.0-33.0); MCHC 30.2 % (32.0-36.0); MCV 94 fL (80-95); MPV 11.2 fL (8.0-11.0); Monocytes % 9.6 %; Neutrophils % 65.5 %; Platelet Count 104 10^3/uL (130-400); RDW 16.9 % (11.8-14.1); RDW-SD 58.1 fL; WBC 3.33 10^3/uL (4.4-10.8)
[2023-08-23 17:25] LABS: ALT 16 U/L (16-63); AST 23 U/L (15-37); Alkaline Phosphatase 80 U/L (46-116); Anion Gap 11.9 mmol/L (3-11); BUN 17 mg/dL (7-18); Bilirubin, Total 0.5 mg/dL (0.2-1.0); C-Reactive Protein < 0.50 mg/dL (<or=0.5); CO2 24.1 mmol/L (21.0-32.0); CREATININE 1.2 mg/dL (0.70-1.30); Calcium 7.8 mg/dL (8.5-10.1); Chloride 107 mmol/L (98-107); Estimated GFR 59.63 (mL/min/1.73m2); Glucose 87 mg/dL (74-106); Potassium 3.7 mmol/L (3.5-5.1); Sodium 143 mmol/L (136-145); Total Protein 6.2 g/dL (6.4-8.2)
[2023-08-23 17:36] LABS: Anisocytosis 1+; Diff Comment RBC Morph Reviewed; Hypochromasia 1+
== END 2023-08-23 20:17 | disposition home or self-care (01) ==
LOC: LBN 20:16
PROVIDERS: PCP Family Medicine; Visit Provider Student in an Organized Health Care Education/Training Program
DX: Z79.2 Long term (current) use of antibiotics (principal)
CPT/HCPCS: 80053; 85025; 86140

== ENCOUNTER 2023-08-27 12:51 | Outpatient (REF) | payer MEDICARE, SELFPAY ==
[2023-08-27 13:03] LABS: HGB 7.6 g/dL (13.5-17.5)
== END 2023-08-27 12:52 | disposition home or self-care (01) ==
LOC: LBN 12:51
PROVIDERS: PCP Family Medicine; Visit Provider Family Medicine
DX: K92.2 Gastrointestinal hemorrhage, unspecified (principal); D62 Acute posthemorrhagic anemia
CPT/HCPCS: 85018

== ENCOUNTER 2023-08-30 15:03 | Outpatient (REF) | payer MEDICARE, SELFPAY ==
[2023-08-30 18:32] LABS: Abs Immature Grans 0.02 10^3/uL (0.0-0.06); Absolute Basophil Count 0.02 10^3/uL (0.0-0.2); Absolute Eosinophil Count 0.12 10^3/uL (0.0-0.7); Absolute Lymphocyte Count 0.71 10^3/uL (1.2-3.4); Absolute Monocyte Count 0.34 10^3/uL (0.1-0.8); Absolute Neutrophil Count 1.77 10^3/uL (1.2-6.7); Basophils % 0.7 %; HCT 23.1 % (40.0-50.0); Immature Grans % 0.7 %; Lymphocytes % 23.8 %; MCH 28.2 pg (27.0-33.0); MCHC 29.4 % (32.0-36.0); MCV 96 fL (80-95); MPV 12.2 fL (8.0-11.0); Monocytes % 11.4 %; Neutrophils % 59.4 %; RBC 2.41 10^6/uL (4.36-5.78); RDW 17.3 % (11.8-14.1); RDW-SD 60.3 fL; WBC 2.98 10^3/uL (4.4-10.8)
[2023-08-30 19:08] LABS: Diff Comment RBC Morph Reviewed; HGB 6.8 g/dL (13.5-17.5); Hypochromasia 1+; Platelet Count 97 10^3/uL (130-400)
[2023-08-30 19:31] LABS: ALT 50 U/L (16-63); AST 41 U/L (15-37); Albumin 2.9 g/dL (3.4-5.0); Alkaline Phosphatase 106 U/L (46-116); Anion Gap 10.3 mmol/L (3-11); BUN 19 mg/dL (7-18); C-Reactive Protein 0.88 mg/dL (<or=0.5); CO2 23.7 mmol/L (21.0-32.0); CREATININE 1.4 mg/dL (0.70-1.30); Chloride 109 mmol/L (98-107); Estimated GFR 49.56 (mL/min/1.73m2); Glucose 101 mg/dL (74-106); Potassium 3.9 mmol/L (3.5-5.1); Sodium 143 mmol/L (136-145); Total Protein 5.8 g/dL (6.4-8.2)
[2023-08-30 19:46] LABS: Bilirubin, Total 0.3 mg/dL (0.2-1.0)
== END 2023-08-30 15:04 | disposition home or self-care (01) ==
LOC: LBN 15:03
PROVIDERS: PCP Family Medicine; Visit Provider Family Medicine
DX: R78.81 Bacteremia (principal); B95.2 Enterococcus as the cause of diseases classified elsewhere; R79.82 Elevated C-reactive protein (CRP); R79.89 Other specified abnormal findings of blood chemistry
CPT/HCPCS: 80053; 85025; 86140

== ENCOUNTER 2023-09-06 18:38 | Outpatient (REF) | payer MEDICARE, SELFPAY ==
[2023-09-06 16:11] LABS: Abs Immature Grans 0.02 10^3/uL (0.0-0.06); Absolute Basophil Count 0.02 10^3/uL (0.0-0.2); Absolute Eosinophil Count 0.13 10^3/uL (0.0-0.7); Absolute Lymphocyte Count 0.94 10^3/uL (1.2-3.4); Absolute Monocyte Count 0.23 10^3/uL (0.1-0.8); Absolute Neutrophil Count 2.16 10^3/uL (1.2-6.7); Basophils % 0.6 %; Eosinophils % 3.7 %; HCT 22.8 % (40.0-50.0); Immature Grans % 0.6 %; Lymphocytes % 26.9 %; MCH 28.3 pg (27.0-33.0); MCHC 30.3 % (32.0-36.0); MCV 93 fL (80-95); MPV 11.1 fL (8.0-11.0); Monocytes % 6.6 %; Neutrophils % 61.6 %; Nucleated RBC 0.6 % (0.0-0.3); Platelet Count 134 10^3/uL (130-400); RBC 2.44 10^6/uL (4.36-5.78); RDW 17.2 % (11.8-14.1); RDW-SD 58.3 fL
[2023-09-06 16:35] LABS: ALT 24 U/L (16-63); AST 26 U/L (15-37); Albumin 2.9 g/dL (3.4-5.0); Alkaline Phosphatase 98 U/L (46-116); Anion Gap 10.5 mmol/L (3-11); BUN 20 mg/dL (7-18); CO2 22.5 mmol/L (21.0-32.0); CREATININE 1.6 mg/dL (0.70-1.30); Chloride 107 mmol/L (98-107); Estimated GFR 42.22 (mL/min/1.73m2); Glucose 97 mg/dL (74-106); Potassium 4.2 mmol/L (3.5-5.1); Sodium 140 mmol/L (136-145); Total Protein 5.9 g/dL (6.4-8.2)
[2023-09-06 16:38] LABS: C-Reactive Protein < 0.50 mg/dL (<or=0.5)
[2023-09-06 16:52] LABS: Anisocytosis 1+; Diff Comment RBC Morph Reviewed; HGB 6.9 g/dL (13.5-17.5); Hypochromasia 1+
== END 2023-09-06 18:39 | disposition home or self-care (01) ==
LOC: LBN 18:38
PROVIDERS: PCP Family Medicine; Visit Provider Student in an Organized Health Care Education/Training Program
DX: R78.81 Bacteremia (principal); I61.9 Nontraumatic intracerebral hemorrhage, unspecified; B95.2 Enterococcus as the cause of diseases classified elsewhere; K92.2 Gastrointestinal hemorrhage, unspecified; D62 Acute posthemorrhagic anemia; Z95.2 Presence of prosthetic heart valve; Z79.2 Long term (current) use of antibiotics; Z79.01 Long term (current) use of anticoagulants
CPT/HCPCS: 80053; 85025; 86140

== ENCOUNTER 2023-09-13 16:09 | Outpatient (REF) | payer MEDICARE, SELFPAY ==
[2023-09-13 15:00] LABS: HGB 7.5 g/dL (13.5-17.5)
== END 2023-09-13 16:10 | disposition home or self-care (01) ==
LOC: NCHCN 16:09
PROVIDERS: PCP Family Medicine; Visit Provider Family Medicine
DX: K92.2 Gastrointestinal hemorrhage, unspecified; Z87.19 Personal history of other diseases of the digestive system
CPT/HCPCS: 85014; 85018

== ENCOUNTER 2023-09-20 13:46 | Outpatient (REF) | payer MEDICARE, SELFPAY ==
[2023-09-20 14:36] LABS: HCT 19.2 % (40.0-50.0); HGB 5.6 g/dL (13.5-17.5)
== END 2023-09-20 13:47 | disposition home or self-care (01) ==
LOC: NCHCN 13:46
PROVIDERS: PCP Family Medicine; Visit Provider Family Medicine
DX: D62 Acute posthemorrhagic anemia (principal); K92.2 Gastrointestinal hemorrhage, unspecified; Z87.19 Personal history of other diseases of the digestive system
CPT/HCPCS: 85014; 85018

== ENCOUNTER 2023-09-30 13:47 | Outpatient (REF) | payer MEDICARE, SELFPAY ==
[2023-09-30 21:07] LABS: HCT 29.5 % (40.0-50.0); HGB 9.2 g/dL (13.5-17.5); MCH 28.4 pg (27.0-33.0); MCHC 31.2 % (32.0-36.0); MCV 91 fL (80-95); MPV 10.6 fL (8.0-11.0); Platelet Count 136 10^3/uL (130-400); RBC 3.24 10^6/uL (4.36-5.78); RDW 18.1 % (11.8-14.1); RDW-SD 57.8 fL; WBC 2.84 10^3/uL (4.4-10.8)
[2023-09-30 21:37] LABS: Absolute Eosinophil Count 0.06 10^3/uL (0.0-0.7); Absolute Lymphocyte Count 1.36 10^3/uL (1.2-3.4); Absolute Neutrophil Count 1.36 10^3/uL (1.2-6.7); Anisocytosis 2+; Atypical Lymphocytes % 3 %; Diff Comment Manual Differential; Hypochromasia 1+; Metamyelocytes % 2
[2023-09-30 21:38] LABS: Poikilocytes 2+; Polychromasia Present
== END 2023-09-30 13:48 | disposition home or self-care (01) ==
LOC: NCHCN 13:47
PROVIDERS: PCP Family Medicine; Visit Provider Family Medicine
DX: D46.9 Myelodysplastic syndrome, unspecified (principal)
CPT/HCPCS: 85025

== ENCOUNTER 2023-10-05 15:49 | Outpatient (REF) | payer MEDICARE, SELFPAY ==
[2023-10-05 15:00] LABS: Abs Immature Grans 0.03 10^3/uL (0.0-0.06); HCT 27.9 % (40.0-50.0); HGB 8.4 g/dL (13.5-17.5); MCH 27.8 pg (27.0-33.0); MCHC 30.1 % (32.0-36.0); MCV 92 fL (80-95); MPV 11.4 fL (8.0-11.0); Platelet Count 134 10^3/uL (130-400); RBC 3.02 10^6/uL (4.36-5.78); RDW 18.6 % (11.8-14.1); RDW-SD 62.5 fL; WBC 2.73 10^3/uL (4.4-10.8)
[2023-10-05 15:14] LABS: Absolute Basophil Count 0.03 10^3/uL (0.0-0.2); Absolute Lymphocyte Count 0.82 10^3/uL (1.2-3.4); Absolute Monocyte Count 0.14 10^3/uL (0.1-0.8); Absolute Neutrophil Count 1.75 10^3/uL (1.2-6.7); Anisocytosis 1+; Diff Comment Manual Differential; Hypochromasia 1+; Polychromasia Present
== END 2023-10-05 15:50 | disposition home or self-care (01) ==
LOC: NCHCN 15:49
PROVIDERS: PCP Family Medicine; Visit Provider Nurse Practitioner Family
DX: D64.9 Anemia, unspecified (principal)
CPT/HCPCS: 85025

== ENCOUNTER 2023-10-12 15:33 | Outpatient (REF) | payer MEDICARE, SELFPAY ==
[2023-10-12 14:57] LABS: MCH 27.7 pg (27.0-33.0); MCHC 29.5 % (32.0-36.0); MCV 94 fL (80-95); MPV 10.2 fL (8.0-11.0); Platelet Count 115 10^3/uL (130-400); RBC 2.24 10^6/uL (4.36-5.78); RDW 18.4 % (11.8-14.1); RDW-SD 63.3 fL; WBC 2.21 10^3/uL (4.4-10.8)
[2023-10-12 15:03] LABS: HGB 6.2 g/dL (13.5-17.5)
== END 2023-10-12 15:34 | disposition home or self-care (01) ==
LOC: NCHCN 15:33
PROVIDERS: PCP Family Medicine; Visit Provider Family Medicine
DX: D46.9 Myelodysplastic syndrome, unspecified (principal)
CPT/HCPCS: 80048; 85027

== ENCOUNTER 2023-10-13 07:07 | Emergency (ER) | payer MEDICARE, SELFPAY ==
[2023-10-13] VITALS (56 sets, daily range): BP systolic 111–170; BP diastolic 56–100; PULSE 75–119; RESP 14–24; TEMP 36.4–36.6; O2SAT 98–100
--- NOTE | 2023-10-13 07:29 | W.ED.GENAD ---
Discharge Plan Disposition Patient Disposition: Home Condition: Stable Discharge Details Clinical Impression: Anemia Primary Care Provider: Rafiq El ED Provider: Chong Eduardo Home Meds and New Rx's Prescriptions: Continued warfarin 5 mg tablet 5 mg PO Q OTHER DAY Rx Instructions: M// 7mg Mcnulty/// 5mg pantoprazole 40 mg tablet,delayed release (DR/EC) 40 mg PO DAILY Qty: 30 0RF warfarin 2 mg tablet 2 mg PO DAILY Discharge Instructions Additional Instructions: You were given 2 units of blood for your low blood count Follow-up with your oncologist If you feel more ill or have severe shortness of breath or chest pain return to the emergency department for reevaluation. HPI General Mode of arrival: ambulatory. Date/Time Provider Initiated Documentation: 10/13/23 07:08. Limitations to Documentation: no limitations. Information obtained by: patient. History of Present Illness 82 year old M presents to the emergency department with the chief complaint of low hemoglobin, described as moderate, Patient started experiencing this day(s) (1) and it has been constant. No relieving factors improve symptom(s), No exacerbating factors reported . Patient notes denies chest pain, fever/chills and shortness of breath. Patient did receive the following treatments prior to arrival, none Related Data Home Medications ?Medication ?Instructions ?Recorded ?Confirmed warfarin 5 mg tablet 5 mg PO Q OTHER DAY 06/30/23 10/13/23 pantoprazole 40 mg tablet,delayed 40 mg PO DAILY #30 tabs 07/19/23 10/13/23 release warfarin 2 mg tablet 2 mg PO DAILY 10/13/23 10/13/23 Previous Rx's ?Medication ?Instructions ?Recorded pantoprazole 40 mg tablet,delayed 40 mg PO DAILY #30 tabs 07/19/23 release Allergies Allergy/AdvReac Type Severity Reaction Status Date / Time PEACH SKINS AdvReac Other (See Uncoded 07/19/23 10:12 Comment) General Stated Complaint: Dizzy/Sync WILBERT: 3 Review of Systems All systems reviewed & are unremarkable except as noted in HPI and below Constitutional Constitutional: Denies chills, Denies fever(s) and Denies weakness Cardiovascular Cardiovascular: Denies chest pain Respiratory Respiratory: Denies cough Gastrointestinal Gastrointestinal: Denies abdominal pain, Denies nausea and Denies vomiting Integumentary/Breasts Skin/Breast: Denies rash Neurologic Neurologic: Denies weakness Exam Const General: no acute distress Orientation: alert [facility] Head: normal to inspection Ears: external ears normal General nose exam: external nose normal Mouth: moist mucous membranes Eyes General: appearance normal, both eyes and all related structures Neck Neck: normal visual inspection Resp Effort & Inspection: normal respiratory effort and able to speak in complete sentences Cardio Rate: regular rate GI Palpation: soft and nontender Skin General skin exam: no rashes or lesions noted Neuro General: patient alert and patient oriented x3 Extrem General: normal to inspection Psych Mental Status: mental status grossly normal Course Vital Signs Vital signs: Vital Signs Temperature 36.4 C L 10/13/23 07:11 Pulse 119 H 10/13/23 07:11 Respiratory Rate 16 10/13/23 07:11 Blood Pressure 127/92 H 10/13/23 07:11 Pulse Oximetry 100 10/13/23 07:11 Temperature 36.4 C L 10/13/23 07:11 Pulse 119 H 10/13/23 07:11 Respiratory Rate 16 10/13/23 07:11 Blood Pressure 127/92 H 10/13/23 07:11 Pulse Oximetry 100 10/13/23 07:11 Lab/Test Results Lab/Test Results: Laboratory Tests Range/Units 10/13/23 07:21 Crossmatch See Detail Medical Decision Making 82-year-old male with a history of aortic valve replacement and mild dysplastic syndrome who was recently transferred to [facility] in July for a GI bleed that was found in the small site of bleeding in the stomach otherwise unremarkable colonoscopy and endoscopy. He was transfused multiple times during the stay. He says he was discharged and has been doing well, he is followed by [facility] for his myelodysplastic syndrome and have routine labs done yesterday showing a hemoglobin of 6. He says he feels fine and has not had any dark stools, no chest pain, no difficulty breathing. They sent him up to go down to [facility] to have an infusion in their infusion room but he did not want to drive so he came here instead. He is ambulating without any difficulty and appears well, clear lung sounds, soft nontender abdomen. Given his lack of symptoms do not feel workup other than CBC and coagulation studies indicated we will plan for transfusion of 2 units. Patient tolerated transfusion without any complications. He is stable for discharge and will follow-up with his oncologist return precautions given Differential Diagnosis Differential Diagnosis: anemia, myelodysblastic syndrome Medical Records Medical records reviewed: Yes I reviewed the patient's medical records. Lab Data Lab results reviewed: Yes I reviewed the patient's lab results. 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 ear (Acute) Sensorineural hearing loss (SNHL) of right ear with restricted hearing of left ear (Acute) Sensorineural hearing loss of combined sites, bilateral (Acute 08/03/16) Medical History (Updated 10/13/23 @ 07:56 by Chong Eduardo MD) Intracranial hemorrhage Discharge planning issues diverticulosis adenoma colon polyp Prosthetic Aortic Valve Overweight Hearing loss bilat Surgical History (Updated 08/17/23 @ 00:09 by IDANIA CLAROS) H/O prosthetic aortic valve replacement redo of aortic valve hernia/hydrocele repair Appendectomy Aortic valve replaced Social History Smoking/Tobacco Use Status: Current-Occasional Smoking risk assessment performed?: Yes Alcohol Intake: current Alcohol Intake frequency: holidays/special occasions only Alcohol type: wine Drug use: Never Housing: house Do you feel safe at home: Yes Do you feel safe in your relationship?: Yes
[2023-10-13 07:37] LABS: Abs Immature Grans 0.05 10^3/uL (0.0-0.06); Absolute Lymphocyte Count 0.99 10^3/uL (1.2-3.4); Immature Grans % 2.7 %; Lymphocytes % 53.8 %; MCH 27.7 pg (27.0-33.0); MCHC 29.5 % (32.0-36.0); MCV 94 fL (80-95); MPV 9.3 fL (8.0-11.0); Monocytes % 5.4 %; Neutrophils % 38.1 %; Platelet Count 115 10^3/uL (130-400); RDW 18.6 % (11.8-14.1); RDW-SD 63.8 fL
[2023-10-13 07:41] LABS: HGB 6.1 g/dL (13.5-17.5); WBC 1.84 10^3/uL (4.4-10.8)
[2023-10-13 07:42] LABS: HCT 20.7 % (40.0-50.0)
[2023-10-13 07:52] LABS: INR 2.5 (0.9-1.1); PTT Activated 27.5 sec (23.6-32.8); Prothrombin Time 23.3 sec (9.1-11.1)
[2023-10-13 07:56] LABS: ALT 16 U/L (16-63); AST 24 U/L (15-37); Albumin 3.4 g/dL (3.4-5.0); Alkaline Phosphatase 74 U/L (46-116); BUN 27 mg/dL (7-18); Bilirubin, Total 0.79 mg/dL (0.2-1.0); CREATININE 1.4 mg/dL (0.70-1.30); Chloride 108 mmol/L (98-107); Estimated GFR 49.56 (mL/min/1.73m2); Glucose 125 mg/dL (74-106); Sodium 141 mmol/L (136-145); Total Protein 6.9 g/dL (6.4-8.2)
[2023-10-13 08:03] LABS: Anisocytosis 2+; Diff Comment Agrees w/ Instrument; Hypochromasia 3+; Poikilocytes 1+
== END 2023-10-13 12:31 | disposition home or self-care (01) ==
PROVIDERS: Emergency Provider Emergency Medicine; PCP Family Medicine
DX: D64.9 Anemia, unspecified (principal); D46.9 Myelodysplastic syndrome, unspecified; F17.200 Nicotine dependence, unspecified, uncomplicated; Z95.2 Presence of prosthetic heart valve; Z79.01 Long term (current) use of anticoagulants
CPT/HCPCS: 36415; 36430; 80053; 86850; 86900; 86901; 86920; 99284; 85025; 85610; 85730; 99283; P9016

== ENCOUNTER 2023-11-01 07:51 | Emergency (ER) | payer MEDICARE, SELFPAY ==
[2023-11-01] VITALS (37 sets, daily range): BP systolic 131–173; BP diastolic 76–131; PULSE 84–129; RESP 16–34; TEMP 36.6–37; O2SAT 98–100
--- NOTE | 2023-11-01 08:00 | RT.EKG_ITS ---
APPROVED REPORT Exam: Resting ECG Reason for Exam: SOB, anemia Patient Location: E HR:127 bpm ECG Measurements Heart Rate 127 AXIS RI 71 P 0 QRSd 80 QRS 19 QT 316 T 161 QTc 460 Conclusion Sinus tachycardia...rate> 99 Repolarization abnormality, prob rate related...ST dep, T neg, tachycardia narrow complex regular tachycardia, likely sinus, consider rate related st seg depressions and t wave inversion lateral
--- NOTE | 2023-11-01 08:30 | ED.GENADUL_ITS ---
Discharge Plan Disposition Patient Disposition: Home Discharge Details Clinical Impression: Anemia Primary Care Provider: Rafiq El ED Provider: Dianne Hewitt Home Meds and New Rx's Prescriptions: Continued warfarin 5 mg tablet 5 mg PO Q OTHER DAY Rx Instructions: M// 7mg Mcnulty/// 5mg pantoprazole 40 mg tablet,delayed release (DR/EC) 40 mg PO DAILY Qty: 30 0RF warfarin 2 mg tablet 2 mg PO DAILY Discharge Instructions Additional Instructions: Please follow-up with the infusion clinic on Wednesday as scheduled, as well as your heme-onc doctor at [facility] for management of your anemia I encourage you to schedule your blood transfusions with the infusion clinic on the day that works for you. Please discuss this with them when you see him on Wednesday Return to emergency care if you develop new bleeding from your nose, gums, rectum, black/tarry stools; or if you develop chest pain, dizziness, shortness of breath, or if you are very worried need to be checked again immediately HPI General Date/Time Provider Initiated Documentation: 11/01/23 08:00 . HPI Narrative: Umesh is an 83-year-old male with history of severe anemia in the anticoagulation with Coumadin for mechanical aortic valve replacement with a target INR of 2-3 who presents to the emergency department today for blood transfusion. He reports that he receives blood transfusions weekly for anemia, says his bone marrow is no longer producing red blood cells. He was supposed to have transfusion is done at the infusion center, however says that he has not been able to make his scheduled work with the Wednesday appointments. Last transfusion was 10/25/2023. He reports he has had ongoing shortness of breath when walking anything more than 50 feet for the last couple of months. He does admit that he feels a little bit woozy 6 days after transfusion, indicating that he needs to have a new transfusion. He denies recent illness, nose bleeds, gum bleeding, fatigue, chest pain, nausea/vomiting, abdominal pain, black/tarry stools, rectal bleeding. He also normal bowel movements, today had a brown stool. Last INR was , 2.0. Physical exam reassuring. Patient is alert and oriented, no acute distress. Patient has sinus tachycardia on monitor, 129. Pallor noted to conjunctiva and gums. Easy work of breathing, lung sounds clear bilaterally. Normal heart sounds, tachycardia. Abdomen soft, nondistended, nontender to palpation. No pedal edema. History and presentation consistent with severe anemia requiring blood transfusion. No red flags concerning for acute GI bleed at this time. I independently interpreted the following test: EKG notable for sinus tachycardia, rate 127. Mild ST elevation noted in V1, with depressions noted in V4-V6 (likely rate related). No change from previous EKG on 07/21/23. Hemoglobin today 6.5. White cell count is unchanged at 1.8. Creatinine 1.5, no change from previous. I did review previous medical records from [facility], including 10/14/2023 heme-onc note. Patient does have a history of pancytopenia with newly diagnosed MDS (per BM biopsy), as well as history of upper GI bleed and intracranial hemorrhage in July of this year. Transfusion parameters indicate 1 unit of PRBCs to be transfused for Hgb less than 8, 2 units for Hgb less than 6. 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 1 unit of PRBCs transfused per protocol after discussion of risks versus benefits with patient and signed consent. Patient tolerated procedure well. Vital signs stable on monitor, tachycardia resolved. Reviewed discharge instructions with patient, including importance of follow-up with infusion clinic for routine transfusions and heme-onc for management of MDS/anemia. Educated on red flags indicating return to emergency care. He voices agreement with plan of care Related Data Home Medications ?Medication ?Instructions ?Recorded ?Confirmed warfarin 5 mg tablet 5 mg PO Q OTHER DAY 06/30/23 11/01/23 pantoprazole 40 mg tablet,delayed 40 mg PO DAILY #30 tabs 07/19/23 11/01/23 release warfarin 2 mg tablet 2 mg PO DAILY 10/13/23 11/01/23 Previous Rx's ?Medication ?Instructions ?Recorded pantoprazole 40 mg tablet,delayed 40 mg PO DAILY #30 tabs 07/19/23 release Allergies Allergy/AdvReac Type Severity Reaction Status Date / Time PEACH SKINS AdvReac Other (See Uncoded 11/01/23 08:01 Comment) General Stated Complaint: SOB WILBERT: 3 Review of Systems Narrative: see HPI Exam Const General: cooperative, healthy appearing, comfortable, no acute distress and well developed Nutritional Appearance: average body habitus HENWV Head: normal to inspection General nose exam: external nose normal Face and sinus: normal facial exam Other: pallor to gingiva Eyes Conjunctivae: conjunctival abnormality bilaterally pallor Resp Effort & Inspection: normal respiratory effort and able to speak in complete sentences Auscultation: clear to auscultation bilaterally Cardio Jugular venous pressure: no JVD Rate: tachycardic Rhythm: regular rhythm GI Inspection: normal to inspection and non-distended Palpation: soft and not rigid Extrem General: normal to inspection and no pedal edema Course Vital Signs Vital signs: Vital Signs Temperature 37.0 C 11/01/23 08:02 Pulse 129 H 11/01/23 08:02 Respiratory Rate 16 11/01/23 08:02 Blood Pressure 149/115 H 11/01/23 08:02 Pulse Oximetry 100 11/01/23 08:02 Temperature 37.0 C 11/01/23 08:05 Temperature Source Temporal Artery Scan 11/01/23 08:05 Pulse 129 H 11/01/23 08:05 Respiratory Rate 16 11/01/23 08:05 Respiratory Effort Normal, Non-Labored, Short of Breath 11/01/23 08:05 Blood Pressure 149/115 H 11/01/23 08:05 Blood Pressure Position Sitting 11/01/23 08:05 Pulse Oximetry 99 11/01/23 08:05 Oxygen Delivery Method Room Air 11/01/23 08:05 Oxygen Flow Rate 0 11/01/23 08:02 Pain Level 0 11/01/23 08:05 Medical Decision Making Quality:SDOH Health Related Social Needs: No Data to Display PFSH All Active Problems (Updated 11/01/23 @ 11:36 by Dianne Omer) Anemia (Chronic) H/O mechanical aortic valve replacement (Acute) 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) Diverticulosis of colon without diverticulitis (Chronic) Acute blood loss anemia (Acute) Upper GI bleed (Acute) Anemia (Chronic) 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 ear (Acute) Sensorineural hearing loss (SNHL) of right ear with restricted hearing of left ear (Acute) Sensorineural hearing loss of combined sites, bilateral (Acute 08/03/16) Medical History (Updated 11/01/23 @ 11:36 by Dianne Omer) Intracranial hemorrhage Discharge planning issues diverticulosis adenoma colon polyp Prosthetic Aortic Valve Overweight Hearing loss bilat Surgical History (Updated 08/17/23 @ 00:09 by IDANIA CLAROS) H/O prosthetic aortic valve replacement redo of aortic valve hernia/hydrocele repair Appendectomy Aortic valve replaced Social History Smoking/Tobacco Use Status: Current-Occasional Smoking risk assessment performed?: Yes Alcohol Intake: current Alcohol Intake frequency: holidays/special occasions only Alcohol type: wine Drug use: Never Housing: house Do you feel safe at home: Yes Do you feel safe in your relationship?: Yes
[2023-11-01 08:35] LABS: Abs Immature Grans 0.04 10^3/uL (0.0-0.06); Absolute Basophil Count 0.01 10^3/uL (0.0-0.2); Absolute Eosinophil Count 0.01 10^3/uL (0.0-0.7); Absolute Lymphocyte Count 0.68 10^3/uL (1.2-3.4); Absolute Monocyte Count 0.11 10^3/uL (0.1-0.8); Absolute Neutrophil Count 0.95 10^3/uL (1.2-6.7); Basophils % 0.6 %; Eosinophils % 0.6 %; HCT 22.4 % (40.0-50.0); Immature Grans % 2.2 %; Lymphocytes % 37.8 %; MCH 27.5 pg (27.0-33.0); MCV 95 fL (80-95); MPV 10.3 fL (8.0-11.0); Monocytes % 6.1 %; Neutrophils % 52.7 %; Nucleated RBC 1.1 % (0.0-0.3); RBC 2.36 10^6/uL (4.36-5.78); RDW 17.2 % (11.8-14.1); RDW-SD 59.6 fL
[2023-11-01 08:38] LABS: HGB 6.5 g/dL (13.5-17.5)
[2023-11-01 08:45] LABS: INR 2.1 (0.9-1.1); Prothrombin Time 19.8 sec (9.1-11.1)
[2023-11-01 08:50] LABS: ALT 18 U/L (16-63); AST 28 U/L (15-37); Albumin 3.4 g/dL (3.4-5.0); Alkaline Phosphatase 83 U/L (46-116); Anion Gap 9.9 mmol/L (3-11); Anisocytosis 1+; BUN 19 mg/dL (7-18); Bilirubin, Total 1.04 mg/dL (0.2-1.0); CO2 22.1 mmol/L (21.0-32.0); CREATININE 1.5 mg/dL (0.70-1.30); Calcium 8.9 mg/dL (8.5-10.1); Chloride 110 mmol/L (98-107); Diff Comment Diff Reviewed; Estimated GFR 45.34 (mL/min/1.73m2); Glucose 127 mg/dL (74-106); Hypochromasia 1+; Platelet Count 89 10^3/uL (130-400); Potassium 4.2 mmol/L (3.5-5.1); Sodium 142 mmol/L (136-145); Total Protein 6.5 g/dL (6.4-8.2)
--- NOTE | 2023-11-01 11:30 | RT.EKG_ITS ---
APPROVED REPORT Exam: Resting ECG Reason for Exam: recheck after xfusion Patient Location: E HR:95 bpm ECG Measurements Heart Rate 95 AXIS IL [id number] P [id number] QRSd 95 QRS 13 QT 349 T 45 QTc 438 Conclusion Atrial flutter...A-rate 245 aflutter normal axis, normal interals, nonischemic
== END 2023-11-01 11:49 | disposition home or self-care (01) ==
PROVIDERS: Emergency Provider Nurse Practitioner Family; PCP Family Medicine
DX: R06.02 Shortness of breath (principal); D64.9 Anemia, unspecified; Z95.2 Presence of prosthetic heart valve
CPT/HCPCS: 36415; 36430; 80053; 86850; 86900; 86901; 86920; 93005; 99284; 85025; 85610; 93010; 99283; P9016

== ENCOUNTER 2023-11-10 02:38 | Outpatient (RCR) | payer MEDICARE, SELFPAY ==
[2023-10-18] MEDS: Normal Saline Flush 10 ML SYR IVP (08:00)
[2023-10-18 08:17] LABS: Abs Immature Grans 0.06 10^3/uL (0.0-0.06); Absolute Basophil Count 0.01 10^3/uL (0.0-0.2); Absolute Eosinophil Count 0.01 10^3/uL (0.0-0.7); Absolute Lymphocyte Count 0.91 10^3/uL (1.2-3.4); Absolute Monocyte Count 0.15 10^3/uL (0.1-0.8); Absolute Neutrophil Count 1.05 10^3/uL (1.2-6.7); Basophils % 0.5 %; Eosinophils % 0.5 %; HCT 22.9 % (40.0-50.0); Immature Grans % 2.7 %; Lymphocytes % 41.6 %; MCH 28.3 pg (27.0-33.0); MCHC 29.7 % (32.0-36.0); MCV 95 fL (80-95); MPV 9.9 fL (8.0-11.0); Monocytes % 6.8 %; Neutrophils % 47.9 %; Nucleated RBC 1.4 % (0.0-0.3); Platelet Count 104 10^3/uL (130-400); RDW 17.7 % (11.8-14.1); RDW-SD 60.4 fL; WBC 2.19 10^3/uL (4.4-10.8)
[2023-10-18 08:28] LABS: HGB 6.8 g/dL (13.5-17.5)
[2023-10-18 08:29] LABS: RBC Morphology Normal
[2023-10-18 08:30] LABS: ALT 19 U/L (16-63); AST 23 U/L (15-37); Albumin 3.5 g/dL (3.4-5.0); Alkaline Phosphatase 85 U/L (46-116); Anion Gap 10.4 mmol/L (3-11); BUN 26 mg/dL (7-18); CO2 22.6 mmol/L (21.0-32.0); CREATININE 1.5 mg/dL (0.70-1.30); Calcium 9.1 mg/dL (8.5-10.1); Chloride 109 mmol/L (98-107); Estimated GFR 45.62 (mL/min/1.73m2); Glucose 143 mg/dL (74-106); Potassium 4.2 mmol/L (3.5-5.1); Sodium 142 mmol/L (136-145); Total Protein 6.8 g/dL (6.4-8.2)
[2023-10-18] MEDS: Darbepoetin 300 MCG SYR SC (08:41)
[2023-10-18 09:53] VITALS: BP 119/73; PULSE 109; RESP 17; TEMP 36.7; O2SAT 99
[2023-10-18 10:10] VITALS: BP 138/91; PULSE 107; RESP 17; TEMP 36.6; O2SAT 99
[2023-10-18 10:25] VITALS: BP 118/73; PULSE 107; RESP 17; TEMP 36.7; O2SAT 99
[2023-10-18 10:55] VITALS: BP 125/81; PULSE 92; RESP 17; TEMP 36.6; O2SAT 99
[2023-10-18 11:55] VITALS: BP 133/81; PULSE 81; RESP 17; TEMP 36.6; O2SAT 100
[2023-10-25] VITALS (10 sets, daily range): BP systolic 124–142; BP diastolic 71–87; PULSE 82–107; RESP 17; TEMP 36.4–36.8; O2SAT 98–100
[2023-10-25] MEDS: Normal Saline Flush 10 ML SYR IVP (07:59)
[2023-10-25 08:16] LABS: Abs Immature Grans 0.02 10^3/uL (0.0-0.06); MCH 27.1 pg (27.0-33.0); MCV 94 fL (80-95); MPV 9.8 fL (8.0-11.0); Platelet Count 100 10^3/uL (130-400); RBC 1.99 10^6/uL (4.36-5.78); RDW 16.9 % (11.8-14.1)
[2023-10-25 08:33] LABS: Absolute Basophil Count 0.04 10^3/uL (0.0-0.2); Absolute Lymphocyte Count 1.16 10^3/uL (1.2-3.4); Absolute Neutrophil Count 0.62 10^3/uL (1.2-6.7); Bands % 1 %; Other Cells % 1
[2023-10-25 08:37] LABS: ALT 14 U/L (16-63); AST 23 U/L (15-37); Albumin 3.5 g/dL (3.4-5.0); Alkaline Phosphatase 65 U/L (46-116); Anion Gap 12.8 mmol/L (3-11); BUN 34 mg/dL (7-18); Bilirubin, Total 1.26 mg/dL (0.2-1.0); CO2 20.2 mmol/L (21.0-32.0); CREATININE 1.6 mg/dL (0.70-1.30); Calcium 8.7 mg/dL (8.5-10.1); Chloride 107 mmol/L (98-107); Estimated GFR 42.22 (mL/min/1.73m2); Glucose 169 mg/dL (74-106); Potassium 4.1 mmol/L (3.5-5.1); Sodium 140 mmol/L (136-145); Total Protein 6.6 g/dL (6.4-8.2)
[2023-10-25 08:44] LABS: Diff Comment Manual Differential; HCT 18.6 % (40.0-50.0); HGB 5.4 g/dL (13.5-17.5); WBC 1.94 10^3/uL (4.4-10.8)
[2023-10-25 08:45] LABS: Anisocytosis 1+; Hypochromasia 1+
[2023-11-03] MEDS: Normal Saline Flush 10 ML SYR IVP (08:03)
[2023-11-03 08:21] LABS: Abs Immature Grans 0.02 10^3/uL (0.0-0.06); Absolute Basophil Count 0.01 10^3/uL (0.0-0.2); Absolute Lymphocyte Count 0.62 10^3/uL (1.2-3.4); Absolute Monocyte Count 0.14 10^3/uL (0.1-0.8); Basophils % 0.5 %; HCT 25.1 % (40.0-50.0); HGB 7.6 g/dL (13.5-17.5); Immature Grans % 1.1 %; Lymphocytes % 32.8 %; MCH 28.1 pg (27.0-33.0); MCHC 30.3 % (32.0-36.0); MCV 93 fL (80-95); Monocytes % 7.4 %; Neutrophils % 58.2 %; Nucleated RBC 1.1 % (0.0-0.3); RDW 16.3 % (11.8-14.1); RDW-SD 54.8 fL
[2023-11-03 08:44] LABS: ALT 24 U/L (16-63); AST 32 U/L (15-37); Albumin 3.4 g/dL (3.4-5.0); Alkaline Phosphatase 79 U/L (46-116); Anion Gap 9.8 mmol/L (3-11); BUN 20 mg/dL (7-18); Bilirubin, Total 1.32 mg/dL (0.2-1.0); CO2 23.2 mmol/L (21.0-32.0); CREATININE 1.4 mg/dL (0.70-1.30); Calcium 8.6 mg/dL (8.5-10.1); Chloride 108 mmol/L (98-107); Estimated GFR 49.25 (mL/min/1.73m2); Glucose 132 mg/dL (74-106); Potassium 3.9 mmol/L (3.5-5.1); Sodium 141 mmol/L (136-145); Total Protein 6.7 g/dL (6.4-8.2)
[2023-11-03 09:09] LABS: Diff Comment Diff Reviewed
[2023-11-03 09:10] LABS: Anisocytosis 2+; Poikilocytes 1+
[2023-11-03 09:12] LABS: MPV 10.5 fL (8.0-11.0); Platelet Count 87 10^3/uL (130-400)
[2023-11-03] MEDS: Darbepoetin 300 MCG SYR SC (09:23)
[2023-11-03 09:49] VITALS: BP 135/84; PULSE 103; RESP 17; TEMP 36.5; O2SAT 99
[2023-11-03 10:05] VITALS: BP 150/97; PULSE 98; RESP 17; TEMP 36.3; O2SAT 99
[2023-11-03 10:20] VITALS: BP 156/97; PULSE 111; RESP 17; TEMP 36.5; O2SAT 99
[2023-11-03 10:39] LABS: WBC 1.89 10^3/uL (4.4-10.8)
[2023-11-03 10:50] VITALS: BP 144/83; PULSE 82; RESP 17; TEMP 36.4; O2SAT 99
[2023-11-03 11:40] VITALS: BP 148/95; PULSE 82; RESP 17; TEMP 36.4; O2SAT 98
[2023-11-10] MEDS: Normal Saline Flush 10 ML SYR IVP (07:54)
[2023-11-10 08:05] LABS: Abs Immature Grans 0.02 10^3/uL (0.0-0.06); Absolute Basophil Count 0.01 10^3/uL (0.0-0.2); Absolute Lymphocyte Count 0.88 10^3/uL (1.2-3.4); Absolute Monocyte Count 0.19 10^3/uL (0.1-0.8); Absolute Neutrophil Count 1.06 10^3/uL (1.2-6.7); Basophils % 0.5 %; HCT 27.5 % (40.0-50.0); HGB 8.3 g/dL (13.5-17.5); Immature Grans % 0.9 %; Lymphocytes % 40.7 %; MCH 28.3 pg (27.0-33.0); MCHC 30.2 % (32.0-36.0); MCV 94 fL (80-95); MPV 10.2 fL (8.0-11.0); Monocytes % 8.8 %; Neutrophils % 49.1 %; RBC 2.93 10^6/uL (4.36-5.78); RDW 16.7 % (11.8-14.1); RDW-SD 56.7 fL; WBC 2.16 10^3/uL (4.4-10.8)
[2023-11-10 08:19] LABS: Anisocytosis 1+; Diff Comment Diff Reviewed; Platelet Count 89 10^3/uL (130-400)
[2023-11-10 08:28] LABS: ALT 22 U/L (16-63); AST 31 U/L (15-37); Albumin 3.5 g/dL (3.4-5.0); Alkaline Phosphatase 90 U/L (46-116); Anion Gap 12.6 mmol/L (3-11); BUN 19 mg/dL (7-18); Bilirubin, Total 1.17 mg/dL (0.2-1.0); CO2 21.4 mmol/L (21.0-32.0); CREATININE 1.4 mg/dL (0.70-1.30); Calcium 9.3 mg/dL (8.5-10.1); Chloride 107 mmol/L (98-107); Estimated GFR 49.25 (mL/min/1.73m2); Glucose 121 mg/dL (74-106); Sodium 141 mmol/L (136-145)
== END 2023-11-13 23:59 | disposition home or self-care (01) ==
LOC: INF 02:38
PROVIDERS: PCP Family Medicine; Visit Provider Internal Medicine
DX: D46.9 Myelodysplastic syndrome, unspecified (principal)
CPT/HCPCS: 36415; 36430; 80053; 86850; 86900; 86901; 86920; 85025; J0881; P9016

== ENCOUNTER 2023-11-22 07:42 | Emergency (ER) | payer MEDICARE, SELFPAY ==
[2023-11-22] VITALS (75 sets, daily range): BP systolic 102–153; BP diastolic 38–91; PULSE 86–131; RESP 15–33; TEMP 36.4–37; O2SAT 95–100
--- NOTE | 2023-11-22 07:45 | RT.EKG_ITS ---
APPROVED REPORT Exam: Resting ECG Reason for Exam: Shoulder Pain Patient Location: E HR:129 bpm ECG Measurements Heart Rate 129 AXIS [place] 131 P 0 QRSd 77 QRS 32 QT 281 T 206 QTc 411 Conclusion Sinus tachycardia, rate 129 No interval abnormality or ectopy ST depression/T wave inversion V3-V6, lead II, new from priors No STEMI
--- NOTE | 2023-11-22 08:02 | W.ED.GENAD ---
Discharge Plan Disposition Patient Disposition: Home Condition: Stable Discharge Details Clinical Impression: Anemia, Encounter for blood transfusion Primary Care Provider: Rafiq El ED Provider: Jeannie Stratton Home Meds and New Rx's Prescriptions: No Action warfarin 5 mg tablet 5 mg PO Q OTHER DAY Rx Instructions: M/W/F 7mg Mcnulty/T//Sa 5mg pantoprazole 40 mg tablet,delayed release (DR/EC) 40 mg PO DAILY Qty: 30 0RF warfarin 2 mg tablet 2 mg PO DAILY ferrous sulfate [iron] 325 mg (65 mg iron) tablet 325 mg PO BID Discharge Instructions Instructions: Anemia caused by low iron, Blood transfusion Additional Instructions: You have received 2 units of packed red blood cells here in the emergency department today. Prior to your transfusion your hemoglobin was 5.2 and hematocrit 18. Please follow-up with your hematology oncology team at [facility] and your PCP as previously scheduled. Please keep your appointment on Wednesday. Follow up with primary care provider in 3-5 days. Return to ED sooner if any worsening or concerns. Referrals: Rafiq El MD [Primary Care Provider] - 1 day HPI General Mode of arrival: wheelchair. Date/Time Provider Initiated Documentation: 11/22/23 07:51. Limitations to Documentation: no limitations. Information obtained by: patient, RN notes reviewed and old records reviewed. HPI Narrative: 83-year-old male presents to the ER with a request of blood transfusion, patient does get weekly transfusions for iron deficiency anemia, he is scheduled on Wednesday morning for transfusion however he is reports that this morning he was unable to walk approximately 30 feet without getting severely short of breath and dizzy. He reports for like he was going to fall down. He denies any bloody stools or black stools. He denies any chest pain, nausea vomiting diarrhea fever or chills. Past medical history includes prosthetic aortic valve, diverticulosis. Related Data Home Medications ?Medication ?Instructions ?Recorded ?Confirmed warfarin 5 mg tablet 5 mg PO Q OTHER DAY 06/30/23 11/22/23 pantoprazole 40 mg tablet,delayed 40 mg PO DAILY #30 tabs 07/19/23 11/22/23 release warfarin 2 mg tablet 2 mg PO DAILY 10/13/23 11/22/23 ferrous sulfate 325 mg (65 mg 325 mg PO BID 11/22/23 11/22/23 iron) tablet (iron) Previous Rx's ?Medication ?Instructions ?Recorded pantoprazole 40 mg tablet,delayed 40 mg PO DAILY #30 tabs 07/19/23 release Allergies Allergy/AdvReac Type Severity Reaction Status Date / Time PEACH SKINS AdvReac Other (See Uncoded 11/22/23 08:20 Comment) General WILBERT: 3 Review of Systems All systems reviewed & are unremarkable except as noted in HPI and below Constitutional Constitutional: Reports as per HPI Gastrointestinal Gastrointestinal: Denies abdominal pain Exam Narrative Exam Narrative: Constitutional: Alert and oriented x3. Appears stated age. Normal body habitus. Ill Head: Normocephalic, no trauma. Eyes: Pupils PERRL, Red reflex noted, EOM's intact. Eyelids symmetrical without lesions, discharge, or swelling. ENT: Bilateral TM's WNL, External ear normal to inspection, no mastoid TTP, swelling, or erythema, Nasal turbinates WNL, no nasal discharge. Normal dentition, Posterior pharynx WNL, no exudate. Chest: Sinus tachycardia, normal S1, S2, distal pulses intact. Resp: Lungs clear to auscultation bilaterally, no wheezes, rales, or rhonchi. Abdomen: Soft, non-distended, Normoactive bowel sounds all 4 quads. Musculoskeletal: Normal gait, Moves all 4 extremities without difficulty. Skin: No suspicious rashes or lesions. Capillary refill less than 2 sec. Neurologic: Cranial nerves II-XII intact. Alert and oriented x 3. Motor: No deficits noted. Sensory: Intact bilaterally all 4 extremities. Hematologic/Lymphatic: No ecchymosis, no lymphadenopathy. Medical Decision Making 83-year-old male presents to the ER with a request of blood transfusion, patient does get weekly transfusions for iron deficiency anemia, he is scheduled on Wednesday morning for transfusion however he is reports that this morning he was unable to walk approximately 30 feet without getting severely short of breath and dizzy. He reports for like he was going to fall down. He denies any bloody stools or black stools. He denies any chest pain, nausea vomiting diarrhea fever or chills. Past medical history includes prosthetic aortic valve, diverticulosis. CBC CMP type and screen ordered. Critical result hemoglobin 5.2 hematocrit 18.0. Will order 2 units of PRBCs. 1426: Patient reevaluation he reports he feels somewhat better. Color is improved. He has remained hemodynamically stable throughout the remainder of his stay. Heart rate has improved. Will discharge home with follow-up with his heme-onc team at [facility] and/or PCP. Will encourage him to keep his previous appointment as previously scheduled. Patient discharged in hemodynamically stable condition, patient was ambulatory upon discharge from the department. This text was generated using Slinkyation system, please disregard any oddities of phrase or misspellings. Medical Records Medical records reviewed: Yes I reviewed the patient's medical records. Lab Data Lab results reviewed: Yes I reviewed the patient's lab results. Labs: Laboratory Tests Range/Units 11/22/23 11/22/23 08:14 08:24 WBC (4.4-10.8) 10^3/uL 2.94 L RBC (4.36-5.78) 10^6/uL 1.78 L Hgb (13.5-17.5) g/dL 5.2 L* Hct (40.0-50.0) % 18.0 L* MCV (80-95) fL 101 H MCH (27.0-33.0) pg 29.2 MCHC (32.0-36.0) % 28.9 L RDW (11.8-14.1) % 20.1 H Plt Count (130-400) 10^3/uL 115 L MPV (8.0-11.0) fL 9.5 Immature Gran % % 3.7 Neutrophils % % 65.7 Lymphocytes % % 25.5 Monocytes % % 4.8 Eosinophils % % 0.3 Basophils % % 0.0 Nucleated RBC % (0.0-0.3) % 1.7 H Absolute Neutrophils (1.2-6.7) 10^3/uL 1.93 Absolute Lymphocytes (1.2-3.4) 10^3/uL 0.75 L Absolute Monocytes (0.1-0.8) 10^3/uL 0.14 Absolute Eosinophils (0.0-0.7) 10^3/uL 0.01 Absolute Basophils (0.0-0.2) 10^3/uL 0.00 RBC Morphology See Below Hypochromasia 1+ Anisocytosis 2+ Sodium (136-145) mmol/L 138 Potassium (3.5-5.1) mmol/L 3.9 Chloride (98-107) mmol/L 106 Carbon Dioxide (21.0-32.0) mmol/L 22.7 Anion Gap (3-11) mmol/L 9.3 BUN (7-18) mg/dL 40 H Creatinine (0.70-1.30) mg/dL 1.3 Est GFR (CKD-EPI 2020) (mL/min/1.73m2) 53.84 Glucose (74-106) mg/dL 137 H Calcium (8.5-10.1) mg/dL 9.0 Total Bilirubin (0.2-1.0) mg/dL 0.94 AST (15-37) U/L 25 ALT (16-63) U/L 17 Alkaline Phosphatase (46-116) U/L 62 Total Protein (6.4-8.2) g/dL 5.9 L Albumin (3.4-5.0) g/dL 2.9 L ABO/Rh B Positive Antibody Screen NEGATIVE Crossmatch See Detail Quality:SDOH Health Related Social Needs: No Data to Display PFSH All Active Problems (Updated 11/22/23 @ 14:28 by Jeannie Stratton NP) Encounter for blood transfusion (Acute) Anemia (Chronic) H/O mechanical aortic valve replacement (Acute) 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) Diverticulosis of colon without diverticulitis (Chronic) Acute blood loss anemia (Acute) Upper GI bleed (Acute) Anemia (Chronic) 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 ear (Acute) Sensorineural hearing loss (SNHL) of right ear with restricted hearing of left ear (Acute) Sensorineural hearing loss of combined sites, bilateral (Acute 08/03/16) Medical History Intracranial hemorrhage Discharge planning issues diverticulosis adenoma colon polyp Prosthetic Aortic Valve Overweight Hearing loss bilat Surgical History H/O prosthetic aortic valve replacement redo of aortic valve hernia/hydrocele repair Appendectomy Aortic valve replaced Social History Smoking/Tobacco Use Status: Current-Occasional Smoking risk assessment performed?: Yes Alcohol Intake: current Alcohol Intake frequency: holidays/special occasions only Alcohol type: wine Drug use: Never Housing: house Do you feel safe at home: Yes Do you feel safe in your relationship?: Yes
[2023-11-22 08:23] LABS: Abs Immature Grans 0.11 10^3/uL (0.0-0.06); Absolute Eosinophil Count 0.01 10^3/uL (0.0-0.7); Absolute Lymphocyte Count 0.75 10^3/uL (1.2-3.4); Absolute Monocyte Count 0.14 10^3/uL (0.1-0.8); Absolute Neutrophil Count 1.93 10^3/uL (1.2-6.7); Eosinophils % 0.3 %; Immature Grans % 3.7 %; Lymphocytes % 25.5 %; MCH 29.2 pg (27.0-33.0); MCHC 28.9 % (32.0-36.0); MCV 101 fL (80-95); MPV 9.5 fL (8.0-11.0); Monocytes % 4.8 %; Neutrophils % 65.7 %; Nucleated RBC 1.7 % (0.0-0.3); Platelet Count 115 10^3/uL (130-400); RBC 1.78 10^6/uL (4.36-5.78); RDW 20.1 % (11.8-14.1); RDW-SD 67.4 fL; WBC 2.94 10^3/uL (4.4-10.8)
[2023-11-22 08:28] LABS: HGB 5.2 g/dL (13.5-17.5)
[2023-11-22 08:38] LABS: ALT 17 U/L (16-63); AST 25 U/L (15-37); Albumin 2.9 g/dL (3.4-5.0); Alkaline Phosphatase 62 U/L (46-116); Anion Gap 9.3 mmol/L (3-11); BUN 40 mg/dL (7-18); Bilirubin, Total 0.94 mg/dL (0.2-1.0); CO2 22.7 mmol/L (21.0-32.0); CREATININE 1.3 mg/dL (0.70-1.30); Chloride 106 mmol/L (98-107); Estimated GFR 53.84 (mL/min/1.73m2); Glucose 137 mg/dL (74-106); Potassium 3.9 mmol/L (3.5-5.1); Sodium 138 mmol/L (136-145); Total Protein 5.9 g/dL (6.4-8.2)
[2023-11-22 08:39] LABS: Anisocytosis 2+; Diff Comment Diff Reviewed; Hypochromasia 1+
== END 2023-11-22 14:47 | disposition home or self-care (01) ==
PROVIDERS: Emergency Provider Registered Nurse Emergency; PCP Family Medicine
DX: R06.02 Shortness of breath (principal); R53.1 Weakness; R42 Dizziness and giddiness; D64.9 Anemia, unspecified
CPT/HCPCS: 36430; 80053; 86850; 86900; 86901; 86920; 93005; 99285; 85025; 93010; 99284; P9016

== ENCOUNTER 2023-11-24 09:11 | Inpatient (IN) | payer MEDICARE, SELFPAY ==
[2023-11-24] VITALS (126 sets, daily range): BP systolic 111–181; BP diastolic 46–145; PULSE 84–135; RESP 17–30; TEMP 36.6–37.2; O2SAT 83–100
[2023-11-24 08:49] LABS: Abs Immature Grans 0.17 10^3/uL (0.0-0.06); Absolute Eosinophil Count 0.01 10^3/uL (0.0-0.7); Absolute Lymphocyte Count 0.91 10^3/uL (1.2-3.4); Absolute Monocyte Count 0.16 10^3/uL (0.1-0.8); Absolute Neutrophil Count 2.82 10^3/uL (1.2-6.7); Eosinophils % 0.2 %; Immature Grans % 4.2 %; Lymphocytes % 22.4 %; MCH 29.9 pg (27.0-33.0); MCHC 30.3 % (32.0-36.0); MCV 99 fL (80-95); Monocytes % 3.9 %; Neutrophils % 69.3 %; Nucleated RBC 2.9 % (0.0-0.3); Platelet Count 104 10^3/uL (130-400); RBC 1.77 10^6/uL (4.36-5.78); RDW 19.9 % (11.8-14.1); RDW-SD 66.5 fL; WBC 4.07 10^3/uL (4.4-10.8)
[2023-11-24 09:03] LABS: HGB 5.3 g/dL (13.5-17.5)
[2023-11-24 09:04] LABS: Diff Comment Diff Reviewed; HCT 17.5 % (40.0-50.0)
[2023-11-24 09:05] LABS: Hypochromasia 3+; Poikilocytes 2+; Polychromasia Present
[2023-11-24 09:13] LABS: ALT 22 U/L (16-63); AST 50 U/L (15-37); Albumin 2.7 g/dL (3.4-5.0); Alkaline Phosphatase 62 U/L (46-116); Anion Gap 11.4 mmol/L (3-11); BUN 45 mg/dL (7-18); Bilirubin, Total 1.05 mg/dL (0.2-1.0); CO2 19.6 mmol/L (21.0-32.0); CREATININE 1.4 mg/dL (0.70-1.30); Calcium 8.3 mg/dL (8.5-10.1); Chloride 109 mmol/L (98-107); Estimated GFR 49.25 (mL/min/1.73m2); Glucose 155 mg/dL (74-106); Potassium 4.1 mmol/L (3.5-5.1); Sodium 140 mmol/L (136-145); Total Protein 5.5 g/dL (6.4-8.2)
--- NOTE | 2023-11-24 09:15 | RT.EKG_ITS ---
APPROVED REPORT Exam: Resting ECG Reason for Exam: CP/SOB Patient Location: E HR:128 bpm ECG Measurements Heart Rate 128 AXIS VT 164 P 0 QRSd 81 QRS 14 QT 281 T 190 QTc 411 Conclusion Sinus tachycardia...rate> 99 Repolarization abnormality, prob rate related...ST dep, T neg, tachycardia
--- NOTE | 2023-11-24 09:28 | ED.GENADUL_ITS ---
Discharge Plan Disposition Patient Disposition: Admit to [facility] Condition: Stable Discharge Details Clinical Impression: Anemia Primary Care Provider: Rafiq El ED Provider: Gucci Jimenez Home Meds and New Rx's Prescriptions: No Action warfarin 5 mg tablet 5 mg PO Q OTHER DAY Rx Instructions: M// 7mg Mcnulty/T// 5mg pantoprazole 40 mg tablet,delayed release (DR/EC) 40 mg PO DAILY Qty: 30 0RF warfarin 2 mg tablet 2 mg PO DAILY ferrous sulfate [iron] 325 mg (65 mg iron) tablet 325 mg PO .every other Patient Comments: patient takes every other day HPI General Date/Time Provider Initiated Documentation: 11/24/23 09:23 . HPI Narrative: 83 year-old male presents to ED today by sent from outpatient visit with a chief complaint of profound anemia- hemoglobin of 5.3, known bone marrow disorder, requiring very frequent transfusions, nearly every few days with onset after a lengthy admission at [facility] [place] underwent bone marrow biopsy. Quality described as weakness, shortness of breath, fatigue, no radiation to chest pain, unilateral leg swelling, ecchymosis, falls or trauma, nausea/vomiting. Severity is described as moderate. Palliating factors include nothing specific. Provoking factors include nothing specific. Patient not anticoagulated. Related Data Home Medications ?Medication ?Instructions ?Recorded ?Confirmed warfarin 5 mg tablet 5 mg PO Q OTHER DAY 06/30/23 11/24/23 pantoprazole 40 mg tablet,delayed 40 mg PO DAILY #30 tabs 07/19/23 11/24/23 release warfarin 2 mg tablet 2 mg PO DAILY 10/13/23 11/24/23 ferrous sulfate 325 mg (65 mg 325 mg PO .every other 11/22/23 11/24/23 iron) tablet (iron) Previous Rx's ?Medication ?Instructions ?Recorded pantoprazole 40 mg tablet,delayed 40 mg PO DAILY #30 tabs 07/19/23 release Allergies Allergy/AdvReac Type Severity Reaction Status Date / Time PEACH SKINS AdvReac Other (See Uncoded 11/24/23 09:24 Comment) General Stated Complaint: SOB WILBERT: 3 Review of Systems All systems reviewed & are unremarkable except as noted in HPI and below Exam Narrative Exam Narrative: GENERAL APPEARANCE: Well-nourished, non-toxic, awake and alert, atraumatic, no acute distress. SKIN: Warm, pale, dry, intact, without rashes/lesions/ulcerations. HEAD: Normocephalic, atraumatic, normal hair distribution for gender/age. EYES: Pale conjunctiva, no exudates on lids/lashes. ENT: Nares patent, no circumoral cyanosis, no facial swelling NECK: Supple, trachea midline, painless cervical ROM. LUNGS/CHEST: Lungs CTA bilaterally, non-labored respirations, normal A/P diameter, symmetrical expansion, no chest wall deformity HEART (CV/PV): Regular rate and rhythm- tachycardic without murmur, no JVD, 1+ peripheral edema ABDOMEN: Soft, non-distended, no guarding. MSK: Normal ROM, no swelling/deformity to bilateral UEs or LEs, moving all extremities without weakness, no cyanosis, spine midline without tenderness, normal curvature. NEURO: Mental Status AAOx4 - alert to person, place, time, events No facial droop, no forehead involvement. Motor: No focal weakness - strength 5/5 in bilateral UEs and LEs, proximal and distal, symmetric. Sensory: sensation intact to light touch globally. Gait NT PSYCH: euthymic, cooperative, pleasant, appropriate speech Course Vital Signs Vital signs: Vital Signs Temperature 36.6 C 11/24/23 09:15 Pulse 129 H 11/24/23 09:15 Respiratory Rate 28 H 11/24/23 09:15 Blood Pressure 134/79 11/24/23 09:15 Pulse Oximetry 96 11/24/23 09:15 Temperature 36.6 C 11/24/23 09:15 Temperature Source Oral 11/24/23 09:15 Pulse 129 H 11/24/23 09:15 Respiratory Rate 28 H 11/24/23 09:15 Blood Pressure 134/79 11/24/23 09:15 Blood Pressure Position Sitting 11/24/23 09:15 Pulse Oximetry 96 11/24/23 09:15 Oxygen Delivery Method Room Air 11/24/23 09:15 Oxygen Flow Rate 0 11/24/23 09:15 Pain Level 0 11/24/23 09:15 Medical Decision Making This dictation utilizes [id number] dictation software and may contain unedited grammatical errors. 83 year-old male presents to ED today by sent from outpatient visit with a chief complaint of profound anemia- hemoglobin of 5.3, known bone marrow disorder, requiring very frequent transfusions, nearly every few days with onset after a lengthy admission at [facility] underwent bone marrow biopsy. Quality described as weakness, shortness of breath, fatigue, no radiation to chest pain, unilateral leg swelling, ecchymosis, falls or trauma, nausea/vomiting. Severity is described as moderate. Palliating factors include nothing specific. Provoking factors include nothing specific. Patients' medical history: Aplastic anemia, had extensive endoscopy/colonoscopy workup at [facility] which ruled out any acute GI syncope or bleeding, has not aortic valve replacement. Family and social history: noncontributory. Pertinent exam findings / vital signs include 1+ peripheral edema without skin changes of the lower extremities, no major rales at bases of lungs, no hypoxia, nontoxic, tachycardic. Differential / pathologies of concern include unlikely GI bleeding, patient has undergone extensive workup for this and received 40 to 50 units of blood via repeated chronic transfusions in the recent past, has aplastic anemia, consider CHF, pneumonia. Diagnostic studies of: -CBC, CMP, coagulation studies, type and screen was recently performed, BNP, troponin, EKG, XR chest. -Hemoglobin of 5.1, platelets 97, no signs of infection -Serial troponins negative -BNP elevated at 1182 -Chest x-ray shows mild pulmonary edema in the setting of CHF -EKG shows sinus tachycardia Interventions of: -2 units pRBC's, 40mg IV lasix. ED Course/Assessment/Plan: 83-year-old male presents with profound lethargy and anemia known aplastic anemia patient receiving chronic transfusions, requiring multiple units every few days at minimum, has evidence of mild CHF without hypoxia, patient was tachycardic to 130 on arrival, his vitals did not normalize despite 2 units of packed red blood cells being transfused as well as 1 dose of Lasix, he likely needs admission for his anemia and is unsafe for discharge with tachycardia to 130, he is normotensive, I consulted with hospitalist Dr. Salinas who accepted the patient for admission, likely ED boarding until bed availability. Findings not consistent with hypoxic respiratory failure due to CHF, GI hemorrhage, ACS, sepsis. Disposition of Anemia. Patient verbalized understanding of the plan and return to ED criteria and engaged in shared decision making. Medical Records Medical records reviewed: Yes I reviewed the patient's medical records. Imaging Data Radiologic Study: Attestation: I personally reviewed and interpreted this imaging study as follows: Imaging: X-Ray Radiologist's impression: EXAM: XR CHEST 2V PA LATERAL CLINICAL HISTORY: shortness of breath TECHNIQUE: 2D digital imaging was performed. Two views. COMPARISON: CR,XR XR PORTABLE CHEST AP from 07/21/2023 FINDINGS: HEART: Enlarged. Aortic valve prosthesis. Aorta: Not dilated. PULMONARY VASCULATURE: Prominent. MEDIASTINUM: Unremarkable. LUNGS: Increased markings likely secondary to pulmonary edema. PLEURAL SPACE: Small bilateral pleural effusions, left greater than right. No pneumothorax. Calcified pleural plaques. BONE:Unremarkable for age. SOFT TISSUES: Unremarkable. IMPRESSION: Cardiomegaly and mild CHF. Lab Data Lab results reviewed: Yes I reviewed the patient's lab results. Labs: Laboratory Tests Range/Units 11/24/23 11/24/23 11/24/23 07:55 09:31 10:05 WBC (4.4-10.8) 10^3/uL 4.07 L 4.32 L RBC (4.36-5.78) 10^6/uL 1.77 L 1.72 L Hgb (13.5-17.5) g/dL 5.3 L* 5.1 L* Hct (40.0-50.0) % 17.5 L* 17.1 L* MCV (80-95) fL 99 H 99 H MCH (27.0-33.0) pg 29.9 29.7 MCHC (32.0-36.0) % 30.3 L 29.8 L RDW (11.8-14.1) % 19.9 H 20.0 H Plt Count (130-400) 10^3/uL 104 L 97 L MPV (8.0-11.0) fL 11.0 10.4 Immature Gran % % 4.2 See Differential Neutrophils % % 69.3 60.0 Lymphocytes % % 22.4 34.0 Atypical Lymphs % % 2 Monocytes % % 3.9 3.0 Eosinophils % % 0.2 1.0 Basophils % % 0.0 0.0 Nucleated RBC % (0.0-0.3) % 2.9 H 4.0 H Absolute Neutrophils (1.2-6.7) 10^3/uL 2.82 2.59 Absolute Lymphocytes (1.2-3.4) 10^3/uL 0.91 L 1.56 Absolute Monocytes (0.1-0.8) 10^3/uL 0.16 0.13 Absolute Eosinophils (0.0-0.7) 10^3/uL 0.01 0.04 Absolute Basophils (0.0-0.2) 10^3/uL 0.00 0.00 RBC Morphology See Below See Below Polychromasia Present Present Hypochromasia 3+ 3+ Poikilocytosis 2+ 2+ PT (9.1-11.1) sec 38.1 H INR (0.9-1.1) 4.3 H* APTT (23.6-32.8) sec 27.7 VBG Lactate (0.6-1.4) mmol/L 1.1 Sodium (136-145) mmol/L 140 140 Potassium (3.5-5.1) mmol/L 4.1 4.0 Chloride (98-107) mmol/L 109 H 110 H Carbon Dioxide (21.0-32.0) mmol/L 19.6 L 21.1 Anion Gap (3-11) mmol/L 11.4 H 8.9 BUN (7-18) mg/dL 45 H 46 H Creatinine (0.70-1.30) mg/dL 1.4 H 1.3 Est GFR (CKD-EPI 2020) (mL/min/1.73m2) 49.25 53.84 Glucose (74-106) mg/dL 155 H 122 H Calcium (8.5-10.1) mg/dL 8.3 L 8.6 Total Bilirubin (0.2-1.0) mg/dL 1.05 H 0.93 Conjugated Bilirubin (0.0-0.2) mg/dL 0.2 AST (15-37) U/L 50 H 26 ALT (16-63) U/L 22 13 L Alkaline Phosphatase (46-116) U/L 62 61 Troponin I High Sens (4-76) ng/L 27 NT-Pro-B Natriuret Pep (<300) pg/mL 1182 H Total Protein (6.4-8.2) g/dL 5.5 L 5.3 L Albumin (3.4-5.0) g/dL 2.7 L 2.7 L ABO/Rh B Positive Cancelled Antibody Screen NEGATIVE Cancelled Crossmatch See Detail See Detail Range/Units 11/24/23 11/24/23 11:00 12:52 WBC (4.4-10.8) 10^3/uL RBC (4.36-5.78) 10^6/uL Hgb (13.5-17.5) g/dL Hct (40.0-50.0) % MCV (80-95) fL MCH (27.0-33.0) pg MCHC (32.0-36.0) % RDW (11.8-14.1) % Plt Count (130-400) 10^3/uL MPV (8.0-11.0) fL Immature Gran % % Neutrophils % % Lymphocytes % % Atypical Lymphs % % Monocytes % % Eosinophils % % Basophils % % Nucleated RBC % (0.0-0.3) % Absolute Neutrophils (1.2-6.7) 10^3/uL Absolute Lymphocytes (1.2-3.4) 10^3/uL Absolute Monocytes (0.1-0.8) 10^3/uL Absolute Eosinophils (0.0-0.7) 10^3/uL Absolute Basophils (0.0-0.2) 10^3/uL RBC Morphology Polychromasia Hypochromasia Poikilocytosis PT (9.1-11.1) sec INR (0.9-1.1) APTT (23.6-32.8) sec VBG Lactate (0.6-1.4) mmol/L Sodium (136-145) mmol/L Potassium (3.5-5.1) mmol/L Chloride (98-107) mmol/L Carbon Dioxide (21.0-32.0) mmol/L Anion Gap (3-11) mmol/L BUN (7-18) mg/dL Creatinine (0.70-1.30) mg/dL Est GFR (CKD-EPI 2020) (mL/min/1.73m2) Glucose (74-106) mg/dL Calcium (8.5-10.1) mg/dL Total Bilirubin (0.2-1.0) mg/dL Conjugated Bilirubin (0.0-0.2) mg/dL AST (15-37) U/L ALT (16-63) U/L Alkaline Phosphatase (46-116) U/L Troponin I High Sens (4-76) ng/L 28 29 NT-Pro-B Natriuret Pep (<300) pg/mL Total Protein (6.4-8.2) g/dL Albumin (3.4-5.0) g/dL ABO/Rh Antibody Screen Crossmatch Quality:SDOH Health Related Social Needs: No Data to Display PFSH All Active Problems (Updated 11/24/23 @ 15:08 by XI Gonzalez) Anemia (Chronic) Encounter for blood transfusion (Acute) Anemia (Chronic) H/O mechanical aortic valve replacement (Acute) 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) Diverticulosis of colon without diverticulitis (Chronic) Acute blood loss anemia (Acute) Upper GI bleed (Acute) Anemia (Chronic) 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 ear (Acute) Sensorineural hearing loss (SNHL) of right ear with restricted hearing of left ear (Acute) Sensorineural hearing loss of combined sites, bilateral (Acute 08/03/16) Medical History Intracranial hemorrhage Discharge planning issues diverticulosis adenoma colon polyp Prosthetic Aortic Valve Overweight Hearing loss bilat Surgical History H/O prosthetic aortic valve replacement redo of aortic valve hernia/hydrocele repair Appendectomy Aortic valve replaced Social History Smoking/Tobacco Use Status: Current-Occasional Smoking risk assessment performed?: Yes Alcohol Intake: current Alcohol Intake frequency: holidays/special occasions only Alcohol type: wine Drug use: Never Housing: house Do you feel safe at home: Yes Do you feel safe in your relationship?: Yes
--- NOTE | 2023-11-24 09:48 | DI.RAD_ITS ---
Exam(s) XR CHEST 2V PA LATERAL EXAM: XR CHEST 2V PA LATERAL CLINICAL HISTORY: shortness of breath TECHNIQUE: 2D digital imaging was performed. Two views. COMPARISON: CR,XR XR PORTABLE CHEST AP from 07/21/2023 FINDINGS: HEART: Enlarged. Aortic valve prosthesis. Aorta: Not dilated. PULMONARY VASCULATURE: Prominent. MEDIASTINUM: Unremarkable. LUNGS: Increased markings likely secondary to pulmonary edema. PLEURAL SPACE: Small bilateral pleural effusions, left greater than right. No pneumothorax. Calcif ied pleural plaques. BONE:Unremarkable for age. SOFT TISSUES: Unremarkable. IMPRESSION: Cardiomegaly and mild CHF. DATA REPOSITORY: RADIATION DOSE DELIVERED:
[2023-11-24 10:17] LABS: Lactate 1.1 mmol/L (0.6-1.4)
[2023-11-24 10:27] LABS: Abs Immature Grans 0.16 10^3/uL (0.0-0.06); MCH 29.7 pg (27.0-33.0); MCHC 29.8 % (32.0-36.0); MCV 99 fL (80-95); MPV 10.4 fL (8.0-11.0); Platelet Count 97 10^3/uL (130-400); RBC 1.72 10^6/uL (4.36-5.78); WBC 4.32 10^3/uL (4.4-10.8)
[2023-11-24 10:30] LABS: HCT 17.1 % (40.0-50.0); HGB 5.1 g/dL (13.5-17.5)
[2023-11-24 10:41] LABS: Absolute Eosinophil Count 0.04 10^3/uL (0.0-0.7); Absolute Lymphocyte Count 1.56 10^3/uL (1.2-3.4); Absolute Monocyte Count 0.13 10^3/uL (0.1-0.8); Absolute Neutrophil Count 2.59 10^3/uL (1.2-6.7); Atypical Lymphocytes % 2 %
[2023-11-24 10:42] LABS: Diff Comment Manual Differential; Hypochromasia 3+; PTT Activated 27.7 sec (23.6-32.8); Poikilocytes 2+; Polychromasia Present; Prothrombin Time 38.1 sec (9.1-11.1)
[2023-11-24 10:51] LABS: Troponin I 27 ng/L (4-76)
[2023-11-24 10:53] LABS: ALT 13 U/L (16-63); AST 26 U/L (15-37); Albumin 2.7 g/dL (3.4-5.0); Alkaline Phosphatase 61 U/L (46-116); Anion Gap 8.9 mmol/L (3-11); BUN 46 mg/dL (7-18); Bilirubin, Direct 0.2 mg/dL (0.0-0.2); Bilirubin, Total 0.93 mg/dL (0.2-1.0); CO2 21.1 mmol/L (21.0-32.0); CREATININE 1.3 mg/dL (0.70-1.30); Calcium 8.6 mg/dL (8.5-10.1); Chloride 110 mmol/L (98-107); Estimated GFR 53.84 (mL/min/1.73m2); Glucose 122 mg/dL (74-106); INR 4.3 (0.9-1.1); NT-proBNP 1182 pg/mL (<300); Sodium 140 mmol/L (136-145); Total Protein 5.3 g/dL (6.4-8.2)
[2023-11-24 11:40] LABS: Troponin I 28 ng/L (4-76)
[2023-11-24 13:16] LABS: Troponin I 29 ng/L (4-76)
--- NOTE | 2023-11-24 16:14 | HPE_ITS ---
Date of service: 11/24/23 Time of Service: 19:00 Assessment and Plan Assessment and plan (1) Anemia: Status: Chronic Assessment and plan: s/p transfusion of 2 units of PRBC. will repeat labs in the morning. He reported had extensive GI workup at [facility] in July 2023 including upper and lower endoscopy and capsule endoscopy. cause of his anemia was found after bone marrow biopsy Qualifiers: Anemia type: unspecified type Qualified Code(s): D64.9 - Anemia, unspecified (2) Myelodysplastic syndrome: Status: Acute Assessment and plan: I have asked nursing to obtain records from [facility] regarding prior workups including GI endooscopy and bone marreo bx (3) Acute congestive heart failure: Status: Acute Assessment and plan: likely exacerbation of chronic HFPEF exacerbated by his anemia. his last echo was done July 2023 was poor quality but grossly normal LV function w/ LVEF 60%. I will keep him on iv lasix, monitor labs, troponin I was negative but his symptoms of exertional CP could be d/t his anemia or some occult CAD. he should have MPI when his anemia has been corrected but this can be deferred to outpatient. for now will continue IV lasix overnight and repeat labs; consider updating his echocardiogram but given that he did not have an acute ACS event, it is unlikely to have changed since July. 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 He presented today for labs and was noted to be severely anemic at Hb 5.1 gm. He reported symptoms of dyspnea, intermittent CP (although none today) and fatigue. Evaluation in the ED found him to be in sinus tachcardia and acute CHF per labs and CXR. BNP 1182 w/ normal HS troponin I levels of 27, 28, 29. No ischemic EKG changes but CXR w/ cardiomegaly and small bilateral pleural effusions and increased intraparenchymal edema. Patient was transfused 2 units of PRBC and given lasix 40 mg IVP. Hb repeat post transfusion has come up to 8 gm. Per the patient just started infusion of Aranesp for his anemia. Review of Systems All systems reviewed & are unremarkable except as noted in HPI and below Cardiovascular Cardiovascular: Reports chest pain with activity, Reports leg edema, Reports palpitations, Reports dyspnea, Reports dyspnea on exertion and Reports paroxysmal nocturnal dyspnea Respiratory Respiratory: Reports dyspnea and Reports dyspnea on exertion Gastrointestinal Gastrointestinal: Denies melena, Denies hematochezia, Denies change in stool character and Denies coffee ground emesis Endocrine Endocrine: Reports palpitations PFSH All Active Problems (Updated 11/24/23 @ 22:08 by Chavez Sultana MD) Chronic anticoagulation (Chronic) Exertional chest pain (Acute) Acute congestive heart failure (Acute) Myelodysplastic syndrome (Acute) Anemia (Chronic) Encounter for blood transfusion (Acute) Anemia (Chronic) 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) Diverticulosis of colon without diverticulitis (Chronic) Acute blood loss anemia (Acute) Upper GI bleed (Acute) Anemia (Chronic) 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 ear (Acute) Sensorineural hearing loss (SNHL) of right ear with restricted hearing of left ear (Acute) Sensorineural hearing loss of combined sites, bilateral (Acute 08/03/16) Medical History Intracranial hemorrhage Discharge planning issues diverticulosis adenoma colon polyp Prosthetic Aortic Valve Overweight Hearing loss bilat Surgical History H/O prosthetic aortic valve replacement redo of aortic valve hernia/hydrocele repair Appendectomy Aortic valve replaced Social History Smoking/Tobacco Use Status: Current-Occasional Smoking risk assessment performed?: Yes Alcohol Intake: current Alcohol Intake frequency: holidays/special occasions only Alcohol type: wine Drug use: Never Housing: house Do you feel safe at home: Yes Do you feel safe in your relationship?: Yes Meds Allergies and Home Medications Allergies Allergy/AdvReac Type Severity Reaction Status Date / Time PEACH SKINS AdvReac Other (See Uncoded 11/24/23 09:24 Comment) Home Medications ?Medication ?Instructions ?Recorded ?Confirmed ?Type warfarin 5 mg tablet 5 mg PO Q OTHER DAY 06/30/23 11/24/23 History pantoprazole 40 mg tablet,delayed 40 mg PO DAILY #30 tabs 07/19/23 11/24/23 Rx release warfarin 2 mg tablet 2 mg PO DAILY 10/13/23 11/24/23 History ferrous sulfate 325 mg (65 mg 325 mg PO .every other 11/22/23 11/24/23 History iron) tablet (iron) Exam Narrative Exam Narrative: Elderly white male who is not dyspneic w/ conversation Neck: supple, no overt JVD, carotid w/out bruits Lungs: bilateral basilar rales Heart: tachycardia, regular, loud prosthetic aortic mechanical valve Abdomen: no bruits, soft, nontender, nondistended Legs: trace of pitting lower leg edema, no cyanosis Results Labs 11/24/23 17:15 11/24/23 10:05 Labs: Laboratory Results - last 24 hr 11/24/23 11/24/23 11/24/23 07:55 09:31 10:05 WBC 4.07 L 4.32 L RBC 1.77 L 1.72 L Hgb 5.3 L* 5.1 L* Hct 17.5 L* 17.1 L* MCV 99 H 99 H MCH 29.9 29.7 MCHC 30.3 L 29.8 L RDW 19.9 H 20.0 H Plt Count 104 L 97 L MPV 11.0 10.4 Immature Gran % 4.2 See Differential Neutrophils % 69.3 60.0 Lymphocytes % 22.4 34.0 Atypical Lymphs % 2 Monocytes % 3.9 3.0 Eosinophils % 0.2 1.0 Basophils % 0.0 0.0 Nucleated RBC % 2.9 H 4.0 H Absolute Neutrophils 2.82 2.59 Absolute Lymphocytes 0.91 L 1.56 Absolute Monocytes 0.16 0.13 Absolute Eosinophils 0.01 0.04 Absolute Basophils 0.00 0.00 RBC Morphology See Below See Below Polychromasia Present Present Hypochromasia 3+ 3+ Poikilocytosis 2+ 2+ PT 38.1 H INR 4.3 H* APTT 27.7 VBG Lactate 1.1 Sodium 140 140 Potassium 4.1 4.0 Chloride 109 H 110 H Carbon Dioxide 19.6 L 21.1 Anion Gap 11.4 H 8.9 BUN 45 H 46 H Creatinine 1.4 H 1.3 Est GFR (CKD-EPI 2020) 49.25 53.84 Glucose 155 H 122 H Calcium 8.3 L 8.6 Total Bilirubin 1.05 H 0.93 Conjugated Bilirubin 0.2 AST 50 H 26 ALT 22 13 L Alkaline Phosphatase 62 61 Troponin I High Sens 27 NT-Pro-B Natriuret Pep 1182 H Total Protein 5.5 L 5.3 L Albumin 2.7 L 2.7 L ABO/Rh B Positive Cancelled Antibody Screen NEGATIVE Cancelled Crossmatch See Detail See Detail 11/24/23 11/24/23 11:00 12:52 WBC RBC Hgb Hct MCV MCH MCHC RDW Plt Count MPV Immature Gran % Neutrophils % Lymphocytes % Atypical Lymphs % Monocytes % Eosinophils % Basophils % Nucleated RBC % Absolute Neutrophils Absolute Lymphocytes Absolute Monocytes Absolute Eosinophils Absolute Basophils RBC Morphology Polychromasia Hypochromasia Poikilocytosis PT INR APTT VBG Lactate Sodium Potassium Chloride Carbon Dioxide Anion Gap BUN Creatinine Est GFR (CKD-EPI 2020) Glucose Calcium Total Bilirubin Conjugated Bilirubin AST ALT Alkaline Phosphatase Troponin I High Sens 28 29 NT-Pro-B Natriuret Pep Total Protein Albumin ABO/Rh Antibody Screen Crossmatch Last Vital Signs Temp 37.2 C 11/24/23 16:09 Pulse 129 H 11/24/23 16:09 Resp 26 H 11/24/23 13:18 BP 145/74 H 11/24/23 16:09 Pulse Ox 100 11/24/23 16:09 Time Spent Time spent with Patient: 55-74 minutes Time was spent: preparing to see the patient(eg.review tests), obtaining and/or reviewing separately otained hiistory, ordering medications,tests, procedures, referring, communicating with other health medical care manager, indepentently interpreting results, counseling the patient and care coordination
[2023-11-24] MEDS: Furosemide 40 MG/4 ML VIAL IVP (16:15)
[2023-11-24 17:31] LABS: HCT 25.3 % (40.0-50.0)
--- NOTE | 2023-11-24 19:30 | RT.EKG_ITS ---
APPROVED REPORT Exam: Resting ECG Reason for Exam: tachycardia Patient Location: I HR:130 bpm ECG Measurements Heart Rate 130 AXIS UT 128 P 0 QRSd 81 QRS 1 QT 276 T 181 QTc 406 Conclusion Sinus tachycardia...rate> 99 Repolarization abnormality, prob rate related...ST dep, T neg, tachycardia
[2023-11-24] MEDS: Furosemide 20 MG/2 ML VIAL IVP (20:20)
[2023-11-24] MEDS: Metoprolol 5 MG/5 ML VIAL 2.5 MG IVP (20:21)
[2023-11-24] MEDS: Normal Saline Flush 10 ML SYR IVP (20:21)
[2023-11-24] MEDS: Metoprolol 12.5 MG TAB PO (20:26)
--- NOTE | 2023-11-24 21:15 | RT.EKG_ITS ---
APPROVED REPORT Exam: Resting ECG Reason for Exam: Rhythm Change Patient Location: I HR:128 bpm ECG Measurements Heart Rate 128 AXIS ID 127 P 255 QRSd 81 QRS -7 QT 281 T 183 QTc 410 Conclusion Sinus or ectopic atrial tachycardia...P axis (-45,135), rate> 99 Repolarization abnormality, prob rate related...ST dep, T neg, tachycardia
--- NOTE | 2023-11-24 21:43 | W.EVENT ---
Date of service: 11/24/23 Time of Service: 21:43 Event Note: Called for AFib. Case reviewed, here with symptomatic anemia requiring transfusion in setting of myelodyspastic syndrome. Staff note patient has been in steady narrow complex rhythm at 128-130. After dose Lopressor briefly developed AFib approx 118, since has been alternating between the two rhythms. Patient denies h/o AF. On exam pulse at present 130. BP 137/76. EKG shows narrow complex rhythm with what may be P waves, with first degree block. A/P: The highly regular rate, alternating with periods of cely AF suggests we may be seeing (at the higher rates) a slow 2:1 flutter. Will trial dose of Verapamil to see if we can capture possible underlying flutter wave. In the meantime the diagnosis of AF would appear to be new. Patient is already anticoagulated, in fact toxic at present with INR 4.3, so present focus will be rate control regardless. Following Verapamil 5 patient exhibits possible though not definite flutter waves. As above focus will be on rate control. Has been started previously on oral Lopressor, will up titrate dose for rate < 100. Time Spent with Patient Time spent in critical care(minutes): 40 Time Spent Included: Coordination of care, Chart review, Documenting critically ill care, Time at immediate bedside and Discussing critically ill care with other medical staff
[2023-11-24] MEDS: Verapamil 5 MG/2 ML VIAL IVP (21:46)
[2023-11-24 22:34] LABS: Lab Add On Test DONE
[2023-11-24 22:41] LABS: Magnesium 1.9 mg/dL (1.8-2.4)
[2023-11-25] VITALS (165 sets, daily range): BP systolic 104–127; BP diastolic 58–91; PULSE 81–128; RESP 15–31; TEMP 37.2–37.3; O2SAT 97–100
[2023-11-25] MEDS: Metoprolol 12.5 MG TAB PO (04:18)
--- NOTE | 2023-11-25 09:00 | RT.EKG_ITS ---
APPROVED REPORT Exam: Resting ECG Reason for Exam: Rhythm concern Patient Location: I HR:105 bpm ECG Measurements Heart Rate [address] [id number] P [id number] QRSd 84 QRS -8 QT 313 T 181 QTc 414 Conclusion Atrial flutter...A-rate 254 Abnormal R-wave progression, early transition...QRS area>0 in V2
[2023-11-25 09:01] LABS: Anion Gap 7.4 mmol/L (3-11); BUN 43 mg/dL (7-18); CO2 25.6 mmol/L (21.0-32.0); CREATININE 1.4 mg/dL (0.70-1.30); Calcium 8.3 mg/dL (8.5-10.1); Chloride 110 mmol/L (98-107); Estimated GFR 49.25 (mL/min/1.73m2); Glucose 123 mg/dL (74-106); Magnesium 1.9 mg/dL (1.8-2.4); Potassium 3.4 mmol/L (3.5-5.1); Sodium 143 mmol/L (136-145)
[2023-11-25] MEDS: Normal Saline Flush 10 ML SYR IVP ×2 (09:06→22:37)
[2023-11-25] MEDS: Potassium Chloride 20 MEQ TABCR 40 MEQ PO (09:07)
[2023-11-25] MEDS: Pantoprazole 40 MG TABCR PO (09:08)
[2023-11-25] MEDS: Furosemide 20 MG TAB PO ×2 (09:08→16:06)
[2023-11-25] MEDS: Spironolactone 25 MG TAB PO (09:08)
[2023-11-25] MEDS: Ferrous Sulfate 325 MG TAB PO (09:08)
[2023-11-25] MEDS: Metoprolol 25 MG TAB PO ×3 (09:09→22:36)
[2023-11-25] MEDS: Acetaminophen 325 MG TAB PO (09:09)
--- NOTE | 2023-11-25 09:13 | PDOC.CMIN ---
Date of service: 11/25/23 Time of Service: 09:13 Care Management Initial Assmt Initial Assessment Reason for Hospitalization: anemia Functional Status/Living Situation Patient Presentation: Abrahan was sitting up on the side of the bed, visiting with his Jessy, when met with him. He stated that he is feeling well and really wants to go home. His explained that he had talked about signing out against medical advice but has agreed to stay until tomorrow. Abrahan and Jessy live in a single family home in [place]. They have 3 children but only one lives locally. They also have several grandchildren and one great granddaughter. 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 He does not receive any community services and is independent at baseline. Abrahan and Jessy discussed Abrahan's recent medical issues with anemia which began in July. Jessy shared that Abrahan has been hospitalized either in the ICU at [facility] or at [facility] since that time, with no more than a week or 2 at home in between. He had an extensive workup to identify the course of his anemia, at both hospitals. In September he was diagnosed with myelodysplastic syndrome (MDS) as the cause. He has bloodwork every Wednesday and has been getting transfusions at least one to two times/week, often more than one unit at a time. Town of Residence: [place] Resides with: Spouse ( Jessy) Significant Other/Family: Out of area Caregiver/Guardian: daughter lives in [place] and son lives in [place] Employment Status: Retired Instrumental Activities of Daily Living (ADLs): Independent Medications Medication Management: No Issues/Barriers identified Advance Directives Advance Directives: Do you have an Advance Directive: Y 10/04/20 08:56 AD On File at [facility]: Y 10/04/20 08:56 Date Asked 10/16/23 10/16/23 10:36 AD Date Reviewed 11/24/23 11/24/23 16:54 COLST On File at [facility] No 11/24/23 16:54 COLST Date Scanned Code Status Resuscitation Status Full Code Insurance Coverage/Financial Issues Insurance: Medicare [facility] Supplement Care Team Visit Care Team Role Provider Type Rafiq El MD Primary Care Provider NON-[facility] STAFF PHYSICIAN InPatient Jax [facility] Other Providers OTHER [facility] Provider PHYSICIANS 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 He will follow up with his PCP and plan of care and transport with family. CM will follow and continue to support discharge needs. 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) Diverticulosis of colon without diverticulitis (Chronic) Acute blood loss anemia (Acute) Upper GI bleed (Acute) Anemia (Chronic) 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 ear (Acute) Sensorineural hearing loss (SNHL) of right ear with restricted hearing of left ear (Acute) Sensorineural hearing loss of combined sites, bilateral (Acute 08/03/16) Medical History Intracranial hemorrhage Discharge planning issues diverticulosis adenoma colon polyp Prosthetic Aortic Valve Overweight Hearing loss bilat Surgical History H/O prosthetic aortic valve replacement redo of aortic valve hernia/hydrocele repair Appendectomy Aortic valve replaced Social History Smoking/Tobacco Use Status: Current-Occasional Smoking risk assessment performed?: Yes Alcohol Intake: current Alcohol Intake frequency: holidays/special occasions only Alcohol type: wine Drug use: Never Housing: house Do you feel safe at home: Yes Do you feel safe in your relationship?: Yes SDOH(Care Management) Screening Will the Patient Participate in the Screening?: Yes Do you worry about having a steady place to live?: no Problems where you live: no known problems In the past 12 months, have you had to go without electric, gas, oil or water in your home?: no Have you or anyone in your house had to go without enough food to eat?: no Has lack of transportation kept you from medical appointments or from doing things needed for daily living?: no Has anyone in your support network made you feel unsafe for any reason?: no
[2023-11-25 10:20] LABS: Absolute Basophil Count 0.01 10^3/uL (0.0-0.2); Absolute Eosinophil Count 0.01 10^3/uL (0.0-0.7); Absolute Lymphocyte Count 0.98 10^3/uL (1.2-3.4); Absolute Monocyte Count 0.24 10^3/uL (0.1-0.8); Absolute Neutrophil Count 2.59 10^3/uL (1.2-6.7); Basophils % 0.3 %; Eosinophils % 0.3 %; HCT 21.9 % (40.0-50.0); Immature Grans % 2.5 %; Lymphocytes % 24.9 %; MCH 29.4 pg (27.0-33.0); MCHC 31.5 % (32.0-36.0); MCV 93 fL (80-95); MPV 10.2 fL (8.0-11.0); Monocytes % 6.1 %; Neutrophils % 65.9 %; Nucleated RBC 2.8 % (0.0-0.3); RBC 2.35 10^6/uL (4.36-5.78); RDW 19.7 % (11.8-14.1); RDW-SD 57.1 fL; WBC 3.93 10^3/uL (4.4-10.8)
--- NOTE | 2023-11-25 11:24 | PGE_ITS ---
Date of Service Date of service: 11/25/23 Time of Service: 07:56 Assessment and Plan Assessment and plan (1) Atrial fibrillation: Status: Chronic Assessment and plan: see my handwrittent notes from today for details. In summary patient presented to the ED yesterday from infusion center d/t Hb 5.1 gm and was in CHF. he was transfused 2 units of PRBC w/ repeat Hb 8 gm and was given iv lasix, he was tachyardic initially thought to be in sinus tachyacardia but when rate did not improve w/ tansfusion, he was begun on iv and oral lopressor but when he remained at steady 132 bpm, manufacturing sales representative saw him and gave him verapamil w/ some improvement in his HR into the lower 100's to 110's w/ atrial fibrillation apparent. Today Hb was 6.9 gm w/ out overt GI bleeding. Repeat Hb 7.3 gm. Patient will be transfused 1 unit of PRBC w/ repeat Hb 2 hr post transfusion. Afib rate will be treated w/ escalation of lopressor doses Echo had been ordered but subsequently found to have had echocardiogram in July 2023 at [facility]. He was found to have large mobile mass on his mechanical aortic valve and this was evaluated at [facility], at the time he had Enterococcus bacteremia and was treated w/ iv antibiotics. Per my discussion w/ XI Shipman w/ [facility] cardiology, the patient and his declined cardiology follow up at [facility] and apparently there was no ID follow up either. I will discuss w/ the patient whether or not he is willing to have follow up w/ any of the [facility] specialists. Qualifiers: Atrial fibrillation type: paroxysmal Qualified Code(s): I48.0 - Paroxysmal atrial fibrillation (2) Atrial flutter: Status: Acute Qualifiers: Atrial flutter type: typical Qualified Code(s): I48.3 - Typical atrial flutter (3) Anemia: Status: Chronic Qualifiers: Anemia type: unspecified type Qualified Code(s): D64.9 - Anemia, unspecified (4) Myelodysplastic syndrome: Status: Acute (5) Acute congestive heart failure: Status: Acute Qualifiers: Heart failure type: unspecified Qualified Code(s): I50.9 - Heart failure, unspecified (6) H/O mechanical aortic valve replacement: Status: Chronic (7) Exertional chest pain: Status: Acute (8) Chronic anticoagulation: Status: Chronic Subjective Subjective Interval history since last seen: Hospital was on down time when I saw the patient; please see handwritten notes and orders from 07:56 am. Objective Last Vital Signs Temp 37.3 C 11/25/23 10:58 Pulse 104 H 11/25/23 10:58 Resp 16 11/25/23 10:58 BP 121/63 11/25/23 10:58 Pulse Ox 100 11/25/23 10:58 Laboratory Results - last 24 hr 11/24/23 11/24/23 11/24/23 07:55 11:00 12:52 Hgb Hct Magnesium 1.9 Troponin I High Sens 28 29 Add-On Test Request ABO/Rh B Positive Antibody Screen NEGATIVE Crossmatch See Detail 11/24/23 11/24/23 11/24/23 17:15 22:33 Unknown Hgb 8.0 L D Cancelled Hct 25.3 L Cancelled Magnesium Troponin I High Sens Add-On Test Request DONE ABO/Rh Antibody Screen Crossmatch Time Spent with Patient Time Spent with Patient: >50 minutes Time was spent: preparing to see the patient(eg.review tests), obtaining and/or reviewing separately otained hiistory, ordering medications,tests, procedures, referring, communicating with other health long term care pharmacist, indepentently interpreting results, counseling the patient and care coordination
[2023-11-25 13:37] LABS: INR 3.4 (0.9-1.1); Prothrombin Time 31.1 sec (9.1-11.1)
[2023-11-25 13:41] LABS: HGB 6.9 g/dL (13.5-17.5); Platelet Count 87 10^3/uL (130-400)
[2023-11-25 13:42] LABS: Diff Comment Diff Reviewed; RBC Morphology Normal
[2023-11-25 13:45] LABS: HCT 23.5 % (40.0-50.0)
[2023-11-25 13:46] LABS: HGB 7.3 g/dL (13.5-17.5)
[2023-11-25 16:50] LABS: HCT 23.9 % (40.0-50.0); HGB 7.7 g/dL (13.5-17.5)
[2023-11-25] MEDS: Warfarin 5 MG TAB PO (19:49)
[2023-11-25] MEDS: Potassium Chloride 20 MEQ TABCR PO (19:49)
[2023-11-26] VITALS (47 sets, daily range): BP systolic 115–120; BP diastolic 70–79; PULSE 74–125; RESP 15–28; O2SAT 100
[2023-11-26] MEDS: Metoprolol 25 MG TAB PO (03:54)
[2023-11-26 06:20] LABS: Absolute Basophil Count 0.01 10^3/uL (0.0-0.2); Absolute Eosinophil Count 0.01 10^3/uL (0.0-0.7); Absolute Lymphocyte Count 1.15 10^3/uL (1.2-3.4); Absolute Monocyte Count 0.24 10^3/uL (0.1-0.8); Absolute Neutrophil Count 2.84 10^3/uL (1.2-6.7); Basophils % 0.2 %; Eosinophils % 0.2 %; HCT 24.8 % (40.0-50.0); HGB 7.7 g/dL (13.5-17.5); Immature Grans % 2.3 %; Lymphocytes % 26.4 %; MCH 29.7 pg (27.0-33.0); MCV 96 fL (80-95); MPV 11.5 fL (8.0-11.0); Monocytes % 5.5 %; Neutrophils % 65.4 %; Nucleated RBC 3.7 % (0.0-0.3); RBC 2.59 10^6/uL (4.36-5.78); RDW 18.5 % (11.8-14.1); WBC 4.35 10^3/uL (4.4-10.8)
[2023-11-26 06:26] LABS: Anion Gap 6.5 mmol/L (3-11); BUN 46 mg/dL (7-18); CO2 24.5 mmol/L (21.0-32.0); CREATININE 1.3 mg/dL (0.70-1.30); Calcium 8.3 mg/dL (8.5-10.1); Chloride 110 mmol/L (98-107); Estimated GFR 53.84 (mL/min/1.73m2); Glucose 110 mg/dL (74-106); Prothrombin Time 27.2 sec (9.1-11.1); Sodium 141 mmol/L (136-145)
[2023-11-26 06:40] LABS: Diff Comment Diff Reviewed; Hypochromasia 2+; Platelet Count 81 10^3/uL (130-400); Polychromasia Present
[2023-11-26] MEDS: Pantoprazole 40 MG TABCR PO (07:49)
[2023-11-26] MEDS: Furosemide 20 MG TAB PO (07:49)
[2023-11-26] MEDS: Potassium Chloride 20 MEQ TABCR PO (07:50)
[2023-11-26] MEDS: Spironolactone 25 MG TAB PO (07:50)
[2023-11-26] MEDS: Metoprolol CR 100 MG TABCR PO (07:59)
--- NOTE | 2023-11-26 08:12 | DSE_ITS ---
Date of service: 11/26/23 Time of Service: 08:12 DS: Diagnosis Discharge Diagnosis (1) Atrial fibrillation: Status: Chronic (2) Atrial flutter: Status: Acute (3) Anemia: Status: Chronic (4) Myelodysplastic syndrome: Status: Acute (5) Acute congestive heart failure: Status: Acute (6) H/O mechanical aortic valve replacement: Status: Chronic (7) Exertional chest pain: Status: Acute (8) Chronic anticoagulation: Status: Chronic Discharge Plan Disposition Patient Disposition: Home Condition: Improving Discharge Details Reason For Visit: severe anemia, CHF Admit Date/Time: 11/24/23 15:35 Admit Provider: Chavez Sultana Attending Provider: Chavez Sultana Primary Care Provider: Rafiq El Hospital Course Hospital Course: This 83-year-old male with a history of mechanical aortic valve and previous En terococcus endocarditis as well as myelodysplastic syndrome was sent to the emergency department from the [facility] center when his hemoglobin was found to be down to 5.1. Patient's been requiring more frequent blood transfusions for his MDS. He has had an extensive previous GI workup at [facility] including upper and lower endoscopy as well as capsule endoscopy. No GI source of bleeding has been found skin presumed that his anemia secondary to his myelodysplastic syndrome which was diagnosed on biopsy performed earlier this summer. On arrival he was found to be tachycardic with heart rate in the 130s initially this was thought to be a sinus tachycardia but but when his tachycardia failed to respond to 2 units of packed red cells he was started on Lopressor and given a single dose of IV verapamil which slowed his heart rate down enough that we he was found to be in atrial fibrillation. It is presumed that when he was in a regular narrow complex tachycardia in the 130s he was probably in a a flutter and had 2-1 conduction. Patient was then started on oral Lopressor and the dose was titrated up to 25 mg every 6 hours. His initial INR on admission was 4.3. His warfarin was held overnight and his INR came down to 3.4 at which point his warfarin was resumed. On the day of discharge his INR was down to 3.0. His warfarin dose was then increased back to his usual dose he was taken at home. After consulting with [facility] cardiology and obtaining a more complete history of his previous workup it was learned that he never followed up with outpatient cardiology and never had a follow-up echocardiogram. An echocardiogram was ordered and was supposed to be done on the day of discharge but patient refused to stay and wait for the echocardiogram to be performed. He insisted on being discharged first thing in the morning. Serial hemoglobins were monitored initially his hemoglobin went from 5.1 g to 8 g after 2 units of packed red cells. However it dropped overnight down to 6.9 g but when it was rechecked without further transfusion was found to be 7.3 g. It was discerned that the hemoglobin 8 g was probably spuriously high as it was drawn too soon after his 2 units were initially transfused. For the hemoglobin is 6.9 to 7.3 g he was given 1 more unit of packed red cells. Subsequent hemoglobin came up to 7.7 g and remained stable overnight and was 7.7 g on the day of discharge. Recommendations for the patient is to begin Toprol-XL 100 mg daily to control his atrial fibrillation rate. May be left up to the PCP to decide upon obta ining outpatient cardiac monitoring to assess stability of his atrial fibrillation. At the time of discharge his heart rates were running in the 90s at rest would go up to 120 with activity but then quickly come back down to his baseline in the 90s. He may need further adjustments of his metoprolol. However it at his present rate he is asymptomatic. With respect to his warfarin patient is quite knowledgeable but monitoring his warfarin he was told to check his INR with his home meter daily for the next 3 days and report his readings to his PCP. I told him that at goal for mechanical valve would be ideally an INR of 2.5-3.5. However he can discuss further management with his primary care provider. With respect to his previous Enterococcus endocarditis is recommended he should have a follow-up echocardiogram as none was ever performed after completion of his 6 weeks of IV antibiotics. He should discuss with his primary care provider whether or not he needs to be on long-term suppressive therapy. Patient was discharged in markedly improved condition and is to follow-up with Dr. Rafiq El in the next week. Home Meds and New Rx's Prescriptions: New metoprolol succinate 100 mg tablet extended release 24 hr 100 mg PO DAILY Qty: 30 0RF Continued warfarin 5 mg tablet 5 mg PO Q OTHER DAY Rx Instructions: M/W/F 7mg Mcnulty/T// 5mg pantoprazole 40 mg tablet,delayed release (DR/EC) 40 mg PO DAILY Qty: 30 0RF warfarin 2 mg tablet 2 mg PO DAILY ferrous sulfate [iron] 325 mg (65 mg iron) tablet 325 mg PO .every other Patient Comments: patient takes every other day Discharge Instructions Instructions: Atrial Fibrillation (DC), Metoprolol Additional Instructions: You were admitted to the hospital because you had symptoms of shortness of breath and were found to have worsening anemia. Your hemoglobin went down to 5.1 gm and you initially received 2 units of packed red cells with a transient rise in your hemoglobin to 8.0 gm but then a drop overnight to 6.9 gm but when rechecked without further transfusions it was found to be 7.3 gm. You received one more unit of packed red cells with a rise in your hemoglobin to 7.7 gm and it has remained stable at that number. Today yor hemoglobin is 7.7 gm. You should follow up w/ repeat hemoglobin and hematocrit next week. Call your PCP for orders for new labwork. Your fast heart beats were found to be an irregular heart rhythm called atrial fibrillation. You were started on a new medication called metoprolol to control your heart rates. Your primary care provider may want you to have a holter bus monitor to assess the control of your atrial fibrillation, however while here your rates have come under reasonable control and you have been witihout symptoms, although I think your shortness of breath which you presented with initially was a combination of being anemic and having the uncontrolled heart rates. Upon review of your prior treatments at [facility] earlier this spring, it was learned that you were treated for endocarditis from an Enterococcal blood stream infection. You never did follow up w/ the corporate webmaster at [facility]. It is recommended that you have a follow up echocardiogram to ensure that the vegetation on your prosthetic aortic valve has been irradicated. Your primary care provider can follow up with you and the infectious disease experts at [facility] on whether or not you need lifetime antibiotic suppression to prevent recurrent valve infection. Your prothrombin time (INR) was elevated on admission at 4.3 and your warfarin was held on the evening of your admission to the hospital but then the INR dropped to 3.4 yesterday and your warfarin was restarted. Today it is down to 3.0. You have told us that you have your own home protime meter and check it weekly. I recommend that you check the INR/protime daily for next 3 days and report your readings to your primary care provider and discuss adjustments of your warfarin dosing. For now you should resume your prior schedule of warfarin/coumadin dosing. For prosthetic/mechanical valves, the optimal INR range is 2.5 to 3.5. Referrals: Rafiq El MD [Primary Care Provider] - 12/01/23 11:30 am Activity:: Activity as Tolerated Equipment/Supplies:: No Equipment Needed Diet:: Low Sodium Discharge Orders Discharge Orders: Discharge Order (Routine); Ordered 11/26/23 Ordered By: Chavez Sultana DS: Summary Time Spent with Patient providing and/or coordinating discharge services: Greater than 30 minutes Specific discharge activities: Interview/exam of patient; review of discharge instructions, completion of prescriptions/discharge instructions; discussion w/ nursing and CM; documentation of hospital visit Status at Discharge Functional status at discharge: independent ambulation Overall status at discharge: patient is back to baseline Mental Status: mental status grossly normal Speech and Movement: speech and movement normal Mood: congruent mood Affect: normal affect Quality:SDOH Health Related Social Needs: No Data to Display Exam Narrative Exam Narrative: Patient is alert and oriented no acute distress denies any chest pain or dyspnea he is sitting up and dressed he is want to be discharged. He does not want to wait until he gets his echocardiogram. Lungs are clear to auscultation Heart is irregularly irregular but at a controlled rate with a prosthetic aortic valve click Extremities without peripheral cyanosis or edema Psych Mental Status: mental status grossly normal Speech and Movement: speech and movement normal Mood: congruent mood Affect: normal affect DS: Data Vitals/I&O Vitals and I&O: Vital Signs Temperature 37.2 C 11/25/23 15:06 Temperature Source Temporal Artery Scan 11/25/23 15:06 Pulse 95 H 11/26/23 06:56 Pulse 107 H 11/26/23 07:00 Respiratory Rate 19 11/26/23 07:00 Respiratory Effort Short of Breath 11/24/23 18:40 Respiratory Depth Normal 11/24/23 18:40 Respiratory Pattern Normal 11/24/23 18:40 Blood Pressure 120/79 11/26/23 06:56 Blood Pressure Mean 93 09/13/24 06:56 Blood Pressure Position Sitting 11/24/23 09:15 Pulse Oximetry 100 11/26/23 06:56 Oxygen Delivery Method Room Air 11/25/23 12:26 Oxygen Flow Rate 0 11/25/23 12:26 Pain Level 0 11/25/23 15:06 Intake & Output 11/25/23 11/25/23 11/26/23 11:59 23:59 11:59 Intake Total 1480 / 1480 Output Total 1075 / 1905 830 / 1905 1150 / 1150 Balance -1075 / -425 650 / -425 -1150 / -1150 Intake: Oral 1080 / 1080 Blood Product 300 / 300 Rbc Leuko Reduced Unit 300 / 300 [id number] Other 100 / 100 Rbc Leuko Reduced Unit 100 / 100 [id number] Output: Urine 1075 / 1905 830 / 1905 1150 / 1150 Other: Urine Color Straw Light Marcie Yellow Urine Appearance Clear Clear Clear Urine Odor Normal Normal Normal Voiding Methods Urinal Urinal Urinal Data Completed and Pending Labs on day of discharge: Labs from last 24 hours 11/26/23 11/25/23 11/25/23 05:55 16:32 08:15 WBC 4.35 L RBC 2.59 L Hgb 7.7 L 7.7 L 7.3 L Hct 24.8 L 23.9 L 23.5 L MCV 96 H MCH 29.7 MCHC 31.0 L RDW 18.5 H Plt Count 81 L MPV 11.5 H Immature Gran % 2.3 Neutrophils % 65.4 Lymphocytes % 26.4 Monocytes % 5.5 Eosinophils % 0.2 Basophils % 0.2 Nucleated RBC % 3.7 H Absolute Neutrophils 2.84 Absolute Lymphocytes 1.15 L Absolute Monocytes 0.24 Absolute Eosinophils 0.01 Absolute Basophils 0.01 RBC Morphology See Below Polychromasia Present Hypochromasia 2+ PT 27.2 H INR 3.0 H Sodium 141 Potassium 4.0 Chloride 110 H Carbon Dioxide 24.5 Anion Gap 6.5 BUN 46 H Creatinine 1.3 Est GFR (CKD-EPI 2020) 53.84 Glucose 110 H Calcium 8.3 L Magnesium ABO/Rh Antibody Screen Crossmatch 11/25/23 11/24/23 06:07 07:55 WBC 3.93 L RBC 2.35 L Hgb 6.9 L* Hct 21.9 L MCV 93 D MCH 29.4 MCHC 31.5 L RDW 19.7 H Plt Count 87 L MPV 10.2 Immature Gran % 2.5 Neutrophils % 65.9 Lymphocytes % 24.9 Monocytes % 6.1 Eosinophils % 0.3 Basophils % 0.3 Nucleated RBC % 2.8 H Absolute Neutrophils 2.59 Absolute Lymphocytes 0.98 L Absolute Monocytes 0.24 Absolute Eosinophils 0.01 Absolute Basophils 0.01 RBC Morphology Normal Polychromasia Hypochromasia PT 31.1 H INR 3.4 H Sodium 143 Potassium 3.4 L Chloride 110 H Carbon Dioxide 25.6 Anion Gap 7.4 BUN 43 H Creatinine 1.4 H Est GFR (CKD-EPI 2020) 49.25 Glucose 123 H Calcium 8.3 L Magnesium 1.9 ABO/Rh B Positive Antibody Screen NEGATIVE Crossmatch See Detail PFSH All Active Problems Atrial fibrillation (Chronic) Atrial flutter (Acute) Chronic anticoagulation (Chronic) Exertional chest pain (Acute) Acute congestive heart failure (Acute) Myelodysplastic syndrome (Acute) Anemia (Chronic) Encounter for blood transfusion (Acute) Anemia (Chronic) 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) Diverticulosis of colon without diverticulitis (Chronic) Acute blood loss anemia (Acute) Upper GI bleed (Acute) Anemia (Chronic) 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 ear (Acute) Sensorineural hearing loss (SNHL) of right ear with restricted hearing of left ear (Acute) Sensorineural hearing loss of combined sites, bilateral (Acute 08/03/16) Medical History Intracranial hemorrhage Discharge planning issues diverticulosis adenoma colon polyp Prosthetic Aortic Valve Overweight Hearing loss bilat Surgical History H/O prosthetic aortic valve replacement redo of aortic valve hernia/hydrocele repair Appendectomy Aortic valve replaced Social History Smoking/Tobacco Use Status: Current-Occasional Smoking risk assessment performed?: Yes Alcohol Intake: current Alcohol Intake frequency: holidays/special occasions only Alcohol type: wine Drug use: Never Housing: house Do you feel safe at home: Yes Do you feel safe in your relationship?: Yes Time Spent with Patient Time Spent with Patient: 45-69 minutes Time was spent: preparing to see the patient(eg.review tests), ordering medications,tests, procedures, referring, communicating with other health ocular care aide, indepentently interpreting results, counseling the patient and care coordination
--- NOTE | 2023-11-26 08:57 | PT.INNT ---
PT Notes Visit Reasons: severe anemia, CHF PT consult received from ED however Pt. transferred to ICU for change in condition. Will await new PT consult orders when pt medically appropriate.
--- NOTE | 2023-11-26 09:45 | CMDISCH_ITS ---
Date of service: 11/26/23 Time of Service: 09:45 LACE Index Scoring Tool Questions: Length of Stay (in days): 2 Was the patient admitted via the E.D.?: Yes Comorbidities: Congestive Heart Failure E.D. Visits: 6 Answers: Total Score: 11 Risk of Readmission: High Risk Care Management Discharge Plan Reason for Hospitalization: anemia Discharge Plan: Umesh will be discharged home with no new services. He will follow up with his PCP, Pharmacy Innovation Assistant and plan of care and transport with family. 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
== END 2023-11-26 08:40 | disposition home or self-care (01) | DRG 812 ==
LOC: ER 16:54 → ICU 18:20
PROVIDERS: General Practice; Internal Medicine; Admitting Provider Internal Medicine; Emergency Provider Physician Assistant; PCP Family Medicine; Visit Provider Internal Medicine
DX: D46.9 Myelodysplastic syndrome, unspecified (principal); I48.3 Typical atrial flutter; I50.9 Heart failure, unspecified; Z95.2 Presence of prosthetic heart valve; Z79.01 Long term (current) use of anticoagulants; I48.0 Paroxysmal atrial fibrillation; K57.30 Diverticulosis of large intestine without perforation or abscess without bleeding; F17.290 Nicotine dependence, other tobacco product, uncomplicated
CPT/HCPCS: 00123; 36415; 36430; 80048; 80053; 80076; 86850; 86900; 86901; 86920; 93005; 96374; 99285; 71046; 83605; 83735; 83880; 84484; 85014; 85018; 85025; 85610; 85730; 93010; 99222; 99233; 99239; 99291; J1940; J1941; J3490; P9016

== ENCOUNTER 2023-11-28 22:33 | Inpatient (IN) | payer MEDICARE, SELFPAY ==
[2023-11-28 22:41] VITALS: BP 106/74; PULSE 129; RESP 16; TEMP 36.8; O2SAT 100
--- NOTE | 2023-11-28 22:45 | DI.RAD_ITS ---
Exam(s) XR PORTABLE CHEST AP EXAM: XR PORTABLE CHEST AP CLINICAL HISTORY: SOB. TECHNIQUE: 2D digital imaging was performed. COMPARISON: CR,XR XR PORTABLE CHEST AP from 07/21/2023 CR XR CHEST 2V PA LATERAL from 11/24/2023 FINDINGS: Single AP portable view. Sternotomy wires again noted. Mild cardiomegaly. Mediastinum not widened Calcified pleural plaques again noted bilaterally slightly more extensive on the left side but eviden t bilaterally. No confluent infiltrates in the right. Blunted left costophrenic angle noted, similar to 11/24/2023. This was not evident on 07/21/2023 and therefore probable pleural effusion IMPRESSION: Cardiomegaly. Sternotomy. Moderate size left pleural effusion unchanged from 11/24/2023 Prominent bilateral calcified pleural plaques seen over both hemidiaphragms as well as lateral chest sutton, more so on the left side. Correlation with asbestos related disease recommended. DATA REPOSITORY: RADIATION DOSE DELIVERED:
--- NOTE | 2023-11-28 22:45 | RT.EKG_ITS ---
APPROVED REPORT Exam: Resting ECG Reason for Exam: chest pain Patient Location: E HR:127 bpm ECG Measurements Heart Rate 127 AXIS [place] 46 P 84 QRSd 76 QRS 18 QT 272 T 193 QTc 396 Conclusion Sinus tachycardia...rate> 99 Repolarization abnormality, prob rate related...ST dep, T neg, tachycardia Physician: lateral depressions similiar to previous ekg on 11/25/23. No stemi
--- NOTE | 2023-11-28 22:50 | W.ED.GENAD ---
Discharge Plan Disposition Patient Disposition: Admit to [facility] Condition: Improving Discharge Details Clinical Impression: Anemia, Atrial flutter with rapid ventricular response, GI bleed Admit Date/Time: 11/29/23 01:37 Admit Provider: Kian Valverde Attending Provider: Kian Valverde Primary Care Provider: Rafiq El ED Provider: Gucci Melo HPI General Date/Time Provider Initiated Documentation: 11/28/23 22:38. HPI Narrative: This is an 83-year-old male with a past medical history of mechanical aortic valve, atrial fibrillation/flutter, chronic anticoagulation for this and his valve with Coumadin, myelodysplastic syndrome, congestive heart failure, previous Enterococcus endocarditis, who presents today for shortness of breath, chest discomfort/heaviness, arm and shoulder achiness and neck achiness. Patient was recently here and admitted for A-fib a flutter and anemia. He was medically managed, received blood products,, started on metoprolol 100 mg daily and while he was here he was recommended that he have a echo done. Additionally he had previously had extensive workup at [facility] for potential bleeding sources which were relatively negative/benign. Patient unfortunately refused echo while here, and elected to be discharged instead. Since being home for the last 48 hours patient states that he is still remained in his chronic baseline shortness of breath however this evening he noticed that he had increased pain in his shoulders arms some mild weakness in his arms bilaterally and achiness in his neck and heaviness on his chest as well as some shortness of breath both of which were worse than normal. He states that all of the symptoms get notably worse when he gets up and ambulates and walks around. He states that this has been going on for quite some time. However the symptoms are significantly worsened now. He denies any vomiting or diarrhea. He does admit to a very mild chronic cough. He denies any fever or chills. No other complaints at this time. No other modifying factors. Patient reports that he has been taking his medications as directed. who is at bedside reports that he is in control of his medications and she does not confirm or significantly assist him in this. Related Data Home Medications ?Medication ?Instructions ?Recorded ?Confirmed warfarin 5 mg tablet 5 mg PO Q OTHER DAY 06/30/23 11/28/23 pantoprazole 40 mg tablet,delayed 40 mg PO DAILY #30 tabs 07/19/23 11/28/23 release warfarin 2 mg tablet 2 mg PO DAILY 10/13/23 11/28/23 ferrous sulfate 325 mg (65 mg 325 mg PO .every other 11/22/23 11/28/23 iron) tablet (iron) metoprolol succinate 100 mg 100 mg PO DAILY #30 tabs 11/26/23 11/28/23 tablet,extended release 24 hr Previous Rx's ?Medication ?Instructions ?Recorded pantoprazole 40 mg tablet,delayed 40 mg PO DAILY #30 tabs 07/19/23 release metoprolol succinate 100 mg 100 mg PO DAILY #30 tabs 11/26/23 tablet,extended release 24 hr Allergies Allergy/AdvReac Type Severity Reaction Status Date / Time PEACH SKINS AdvReac Other (See Uncoded 11/28/23 23:28 Comment) General Stated Complaint: Chest Pain WILBERT: 3 Review of Systems All systems reviewed & are unremarkable except as noted in HPI and below Exam Narrative Exam Narrative: 1.Const: Well-nourished, Well-developed, appearing stated age 2.Eyes: PERRL, no conjunctival injection, and symmetrical lids. 3.ENT: Atraumatic external nose and ears. Moist MM. Neck: Symmetric, trachea midline, No thyromegaly. 4.CVS: +S1/S2, No murmurs or gallops. Peripheral pulses 2+ and equal in all extremities. Brisk capillary refill in all extremities. 5.RESP: Unlabored respiratory effort. Clear to auscultation bilaterally. No wheezes rales or rhonchi 6.GI: Soft, Nontender/Nondistended, No hepatosplenomegaly. No guarding or rebound. 7.MSK: Normocephalic/Atraumatic, Extremities w/o deformity or ttp No cyanosis or clubbing, Normal movement of all extremities. +1 pitting edema bilaterally. 8.Skin: Warm, Dry. No rashes or lesions. 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 Sensation grossly intact, no focal neurologic deficits. 10.Psych: (AAO) x3. Appropriate mood and affect Course Vital Signs Vital signs: Vital Signs Temperature 36.8 C 11/28/23 22:41 Pulse 129 H 11/28/23 22:41 Respiratory Rate 16 11/28/23 22:41 Blood Pressure 106/74 11/28/23 22:41 Pulse Oximetry 100 11/28/23 22:41 Temperature 36.8 C 11/28/23 22:41 Temperature Source Temporal Artery Scan 11/28/23 22:41 Pulse 129 H 11/28/23 22:41 Respiratory Rate 16 11/28/23 22:41 Blood Pressure 106/74 11/28/23 22:41 Blood Pressure Position Sitting 11/28/23 22:41 Pulse Oximetry 100 11/28/23 22:41 Oxygen Delivery Method Room Air 11/28/23 22:41 Oxygen Flow Rate 0 11/28/23 22:41 Pain Level 0 11/28/23 22:41 Comment worse with movement 11/28/23 22:41 Medical Decision Making This is an 83-year-old male with a past medical history of mechanical aortic valve, atrial fibrillation/flutter, chronic anticoagulation for this and his valve with Coumadin, myelodysplastic syndrome, congestive heart failure, previous Enterococcus endocarditis, who presents today for shortness of breath, chest discomfort/heaviness, arm and shoulder achiness and neck achiness. Patient was recently here and admitted for A-fib a flutter and anemia. He was medically managed, received blood products,, started on metoprolol 100 mg daily and while he was here he was recommended that he have a echo done. Additionally he had previously had extensive workup at [facility] for potential bleeding sources which were relatively negative/benign. Patient unfortunately refused echo while here, and elected to be discharged instead. Since being home for the last 48 hours patient states that he is still remained in his chronic baseline shortness of breath however this evening he noticed that he had increased pain in his shoulders arms some mild weakness in his arms bilaterally and achiness in his neck and heaviness on his chest as well as some shortness of breath both of which were worse than normal. He states that all of the symptoms get notably worse when he gets up and ambulates and walks around. He states that this has been going on for quite some time. However the symptoms are significantly worsened now. He denies any vomiting or diarrhea. He does admit to a very mild chronic cough. He denies any fever or chills. No other complaints at this time. No other modifying factors. Patient reports that he has been taking his medications as directed. who is at bedside reports that he is in control of his medications and she does not confirm or significantly assist him in this. Physical exam demonstrates well-appearing male, heart rate elevated in the 120s to 130s. Lungs are relatively clear. Abdomen nontender. +1 pitting edema of the lower extremities bilaterally. Differential is broad but includes CHF, A-fib a flutter, unstable angina, less likely PE with his regular Coumadin use. I do also agree with Dr. Sultana that the patient would benefit from an echo study for further visualization of heart components. Will evaluate for these concerning etiologies, monitor closely and reassess. 12:26 AM Laboratory workup has returned, hemoglobin has dropped notably to 5.3 compared to his 7.7 48 hours ago. Platelets are normal. INR is 3.5, electrolytes stable, BUN 55, creatinine 1.6. I am concerned that the sudden drop in hemoglobin is likely multifactorial with a component being his myelodysplastic syndrome, but there is certainly risk of potential GI component. He does admit that his stool slightly darker today. Will likely need repeat colonoscopy and/or EGD with his anticoagulated status. Rectal exam was performed, stool was noted to be dark and tarry, Hemoccult positive. Blood cultures had been ordered, procalcitonin is 0.1. He is afebrile here. We will give 2 units of PRBCs at this time. Patient had notable improvement of his heart rate, initially he was in the 140s to 150s, but after administration of Cardizem he rapidly improved his heart rate to the 90s. With the need for blood products, further workup, and echo I do feel that admission is indicated in this scenario. I discussed the case with the hospitalist Dr. Valverde. He agrees with the assessment and plan. I have extensively reviewed the treatment plan with the patient. I have addressed all patient concerns at this time. I have also discussed the plan with the admitting physician and they agree with the current assessment and plan and have agreed to assume responsibility for the patient. All parties demonstrate verbal understanding and agreement with our assessment and plan at this time. The documentation in this chart was dictated using Acsis dictation software. Please excuse any dictation errors. FINDINGS: Tubes, catheters and devices: Aortic valvular prosthesis in place. There are sternal wires consistent with previous sternotomy incision. Lungs: There are diffuse interstitial infiltrates present. This may represent cardiogenic versus noncardiogenic edema. An acute inflammatory process and/or infectious process/pneumonia are not excluded. The pulmonary vasculature appears within normal limits. Pleural spaces: Moderate left and small right pleural effusion present. Heart/Mediastinum: The heart is enlarged. Vasculature: The aorta demonstrates mild atherosclerotic calcification. Bones/joints: The skeletal structures and soft tissues show no evidence of fracture or other acute processes. Soft tissues: The soft tissues of the extrathoracic region are unremarkable. IMPRESSION: 1. There are diffuse interstitial infiltrates present. This may represent cardiogenic versus noncardiogenic edema. An acute inflammatory process and/or infectious process/pneumonia are not excluded. 2. Moderate left and small right pleural effusion present. Thank you for allowing us to participate in the care of your patient. Dictated and Authenticated by: Jesus Landrum MD 11/29/2023 12:41 AM Eastern Time ([place] & [place]) Quality:SDOH Health Related Social Needs: No Data to Display Critical Care Time Critical Care Time Critical Care Time: Yes Total Critical Care Time: 45 Attestation: Upon my evaluation, this patient had a high probability of imminent or life-threatening deterioration, which required my direct attention, intervention, and personal management. I have personally provided 45 minutes of critical care time exclusive of time spent on separately billable procedures. Time includes review of laboratory data, radiology results, discussion with consultants, and monitoring for potential decompensation. Interventions were performed as documented. 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) Diverticulosis of colon without diverticulitis (Chronic) Acute blood loss anemia (Acute) Upper GI bleed (Acute) Anemia (Chronic) 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 ear (Acute) Sensorineural hearing loss (SNHL) of right ear with restricted hearing of left ear (Acute) Sensorineural hearing loss of combined sites, bilateral (Acute 05/22/17) Medical History (Reviewed 11/29/23 @ 01: by Kian Valverde MD) Intracranial hemorrhage Discharge planning issues diverticulosis adenoma colon polyp Prosthetic Aortic Valve Overweight Hearing loss bilat Surgical History (Reviewed 11/29/23 @ : by Kian Valverde MD) H/O prosthetic aortic valve replacement redo of aortic valve hernia/hydrocele repair Appendectomy Aortic valve replaced Social History (Reviewed 11/29/23 @ : by Kian Valverde MD) Smoking/Tobacco Use Status: Current-Occasional Smoking risk assessment performed?: Yes Alcohol Intake: current Alcohol Intake frequency: holidays/special occasions only Alcohol type: wine Drug use: Never Substance use type: does not use Housing: house Do you feel safe at home: Yes Do you feel safe in your relationship?: Yes
[2023-11-28 23:09] LABS: MCH 29.1 pg (27.0-33.0); MCHC 29.1 % (32.0-36.0); MCV 100 fL (80-95); MPV 10.6 fL (8.0-11.0); Platelet Count 130 10^3/uL (130-400); RBC 1.82 10^6/uL (4.36-5.78); RDW 19.8 % (11.8-14.1); RDW-SD 67.7 fL; WBC 4.21 10^3/uL (4.4-10.8)
[2023-11-28] MEDS: dilTIAZem 25 MG/5 ML VIAL 15 MG IVP (23:10)
[2023-11-28 23:15] LABS: HCT 18.2 % (40.0-50.0); HGB 5.3 g/dL (13.5-17.5)
[2023-11-28 23:19] LABS: INR 3.5 (0.9-1.1); PTT Activated 25.2 sec (23.6-32.8); Prothrombin Time 31.2 sec (9.1-11.1)
[2023-11-28 23:33] LABS: ALT 13 U/L (16-63); AST 23 U/L (15-37); Absolute Lymphocyte Count 1.52 10^3/uL (1.2-3.4); Absolute Monocyte Count 0.21 10^3/uL (0.1-0.8); Absolute Neutrophil Count 2.48 10^3/uL (1.2-6.7); Albumin 2.6 g/dL (3.4-5.0); Alkaline Phosphatase 60 U/L (46-116); Anion Gap 7.3 mmol/L (3-11); BUN 55 mg/dL (7-18); Bilirubin, Total 0.89 mg/dL (0.2-1.0); CO2 22.7 mmol/L (21.0-32.0); CREATININE 1.6 mg/dL (0.70-1.30); Calcium 8.8 mg/dL (8.5-10.1); Chloride 110 mmol/L (98-107); Estimated GFR 41.96 (mL/min/1.73m2); Glucose 145 mg/dL (74-106); NT-proBNP 1391 pg/mL (<300); Potassium 4.8 mmol/L (3.5-5.1); Sodium 140 mmol/L (136-145); TSH (W/Ref FT4) 4.88 uIU/mL (0.36-3.74); Total Protein 5.3 g/dL (6.4-8.2); Troponin I 19 ng/L (<or=76)
[2023-11-28 23:34] LABS: Anisocytosis 1+; Diff Comment Manual Differential; Hypochromasia 2+; Macrocytosis 1+; Poikilocytes 1+; Polychromasia Present
[2023-11-28 23:43] VITALS: PULSE 97; RESP 17; O2SAT 98
[2023-11-28 23:46] VITALS: BP 98/63; PULSE 85; PULSE 88; RESP 22; O2SAT 98
[2023-11-28 23:50] VITALS: PULSE 103; RESP 24; O2SAT 98
[2023-11-28 23:54] LABS: Procalcitonin 0.1 ng/mL
[2023-11-29] VITALS (199 sets, daily range): BP systolic 59–154; BP diastolic 32–136; PULSE 67–129; RESP 12–30; TEMP 36.4–37.8; O2SAT 85–100
--- NOTE | 2023-11-29 00:42 | DI.VRAD_ITS ---
PROCEDURE INFORMATION: Exam: XR Chest Exam date and time: 11/28/2023 11:01 PM Age: 83 years old Clinical indication: Other: Cough, eval for pneumonia TECHNIQUE: Imaging protocol: Radiologic exam of the chest. Views: 1 view. COMPARISON: CR XR CHEST 2V PA LATERAL 11/24/2023 9:45 AM FINDINGS: Tubes, catheters and devices: Aortic valvular prosthesis in place. There are sternal wires consistent with previous sternotomy incision. Lungs: There are diffuse interstitial infiltrates present. This may represent cardiogenic versus noncardiogenic edema. An acute inflammatory process and/or infectious process/pneumonia are not excluded. The pulmonary vasculature appears within normal limits. Pleural spaces: Moderate left and small right pleural effusion present. Heart/Mediastinum: The heart is enlarged. Vasculature: The aorta demonstrates mild atherosclerotic calcification. Bones/joints: The skeletal structures and soft tissues show no evidence of fracture or other acute processes. Soft tissues: The soft tissues of the extrathoracic region are unremarkable. IMPRESSION: 1. There are diffuse interstitial infiltrates present. This may represent cardiogenic versus noncardiogenic edema. An acute inflammatory process and/or infectious process/pneumonia are not excluded. 2. Moderate left and small right pleural effusion present. Dictated and Authenticated by: Jesus Landrum MD. Ordering:NITISH Duckworth MD
[2023-11-29 00:48] LABS: Troponin I 24 ng/L (<or=76)
--- NOTE | 2023-11-29 01:13 | W.PM.HP.N ---
Date of service: 11/29/23 Time of Service: 01:13 Assessment and Plan Assessment and plan (1) Atrial flutter with rapid ventricular response: Status: Acute Assessment and plan: AFib/flutter with RVR leading to rate related inschemia, in context of GI bleeding while on Coumadin, against background of chronic anemia due to myelodysplasia. Will control rate with additional beta zhao; cycle troponins; transfuse 2 units (with Lasix between); and will hold Coumadin for tonight. Issue of [facility] anticoagulation vs GI bleeding will need to be balanced and in any case will likely require repeat endoscopic interrogation of gut for source. AF: uptitrate Lopressor CHF: Lasix between units GI bleed: transfuse 2 units now; consult surgery for endoscopy CAD: rate related ischemia likely, will cycle troponins and repeat EKG with slower rate ADs: reviewed, and requests DNR. 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 Patient was here last week for exacerbation CHF and worsening anemia requiring transfusion, case complicated by AFib/flutter with RVR and was started on Toprol XL 100. Notably he had rate related ischemia noted at that time. 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 Comes in tonight reporting exertional chest pressure with any activity, radiation to left shoulder, neck and jaw. In ER findings of note for AF 140-150, with lateral ST depressions similar to prior episodes of rate related ischemia. Received 15 Cardizem with slowing of rate to approx 90, but then reverted to AFl at 130. Hct noted to have dropped from 24 to 18 and stool heme+. Troponin negative, INR 3.5, I was asked to evaluate for admission. During course of my initial interview I requested 5 Lopressor IV and rate dropped to 80-90. At present states he is having no CP, and reiterates that this was only with exertion. 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) Diverticulosis of colon without diverticulitis (Chronic) Acute blood loss anemia (Acute) Upper GI bleed (Acute) Anemia (Chronic) 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 ear (Acute) Sensorineural hearing loss (SNHL) of right ear with restricted hearing of left ear (Acute) Sensorineural hearing loss of combined sites, bilateral (Acute 08/03/16) Medical History Intracranial hemorrhage Discharge planning issues diverticulosis adenoma colon polyp Prosthetic Aortic Valve Overweight Hearing loss bilat Surgical History H/O prosthetic aortic valve replacement redo of aortic valve hernia/hydrocele repair Appendectomy Aortic valve replaced Social History Smoking/Tobacco Use Status: Current-Occasional Smoking risk assessment performed?: Yes Alcohol Intake: current Alcohol Intake frequency: holidays/special occasions only Alcohol type: wine Drug use: Never Substance use type: does not use Housing: house Do you feel safe at home: Yes Do you feel safe in your relationship?: Yes Meds Allergies and Home Medications Allergies Allergy/AdvReac Type Severity Reaction Status Date / Time PEACH SKINS AdvReac Other (See Uncoded 11/28/23 23:28 Comment) Home Medications ?Medication ?Instructions ?Recorded ?Confirmed ?Type warfarin 5 mg tablet 5 mg PO Q OTHER DAY 06/30/23 11/28/23 History pantoprazole 40 mg tablet,delayed 40 mg PO DAILY #30 tabs 07/19/23 11/28/23 Rx release warfarin 2 mg tablet 2 mg PO DAILY 10/13/23 11/28/23 History ferrous sulfate 325 mg (65 mg 325 mg PO .every other 11/22/23 11/28/23 History iron) tablet (iron) metoprolol succinate 100 mg 100 mg PO DAILY #30 tabs 11/26/23 11/28/23 Rx tablet,extended release 24 hr Exam Narrative Exam Narrative: 107/65, 109, 36.8, 12, 100% RA. HEENT anicteric; neck supple, JVP approx 6-7 cm; lungs clear; heart tachy/regular with mechanical S2; abdomen soft and NT; extremities trace pedal edema; neuro Ox3, lucid, moves all 4s Results Labs 11/28/23 22:56 11/28/23 22:56 Labs: Laboratory Results - last 24 hr 11/28/23 11/28/23 11/29/23 22:56 23:50 00:20 WBC 4.21 L RBC 1.82 L Hgb 5.3 L* D Hct 18.2 L* MCV 100 H D MCH 29.1 MCHC 29.1 L RDW 19.8 H Plt Count 130 D MPV 10.6 Immature Gran % 0.0 Neutrophils % 59.0 Lymphocytes % 36.0 Monocytes % 5.0 Eosinophils % 0.0 Basophils % 0.0 Nucleated RBC % 2.0 H Absolute Neutrophils 2.48 Absolute Lymphocytes 1.52 Absolute Monocytes 0.21 Absolute Eosinophils 0.00 Absolute Basophils 0.00 RBC Morphology See Below Polychromasia Present Hypochromasia 2+ Poikilocytosis 1+ Anisocytosis 1+ Macrocytosis 1+ PT 31.2 H INR 3.5 H APTT 25.2 Sodium 140 Potassium 4.8 Chloride 110 H Carbon Dioxide 22.7 Anion Gap 7.3 BUN 55 H Creatinine 1.6 H Est GFR (CKD-EPI 2020) 41.96 Glucose 145 H Calcium 8.8 Total Bilirubin 0.89 AST 23 ALT 13 L Alkaline Phosphatase 60 Troponin I 19 24 NT-Pro-B Natriuret Pep 1391 H Total Protein 5.3 L Albumin 2.6 L Procalcitonin 0.1 TSH 4.88 H Free T4 1.10 ABO/Rh B Positive Antibody Screen NEGATIVE Crossmatch See Detail Last Vital Signs Temp 36.8 C 11/28/23 22:41 Pulse 109 H 11/29/23 00:30 Resp 12 11/29/23 00:31 BP 107/65 11/29/23 00:30 Pulse Ox 100 11/29/23 00:31 Time Spent Time spent with Patient: 55-74 minutes Time was spent: preparing to see the patient(eg.review tests), obtaining and/or reviewing separately otained hiistory, ordering medications,tests, procedures, referring, communicating with other health resident care aide and indepentently interpreting results
[2023-11-29] MEDS: Metoprolol 5 MG/5 ML VIAL (01:17)
[2023-11-29 01:49] LABS: Bilirubin Negative (Negative); Blood Negative (Negative); Clarity Clear (Clear); Glucose Negative (Negative); Ketones Negative (Negative); Leukocyte Esterase Negative (Negative); Nitrite Negative (Negative); pH 5.5 (5-8)
[2023-11-29] MEDS: Metoprolol 25 MG TAB PO (02:06)
[2023-11-29] MEDS: Furosemide 40 MG/4 ML VIAL IVP (02:06)
--- NOTE | 2023-11-29 02:15 | RT.EKG_ITS ---
APPROVED REPORT Exam: Resting ECG Reason for Exam: repeat Patient Location: E HR:111 bpm ECG Measurements Heart Rate 111 AXIS DC [id number] P [id number] QRSd 83 QRS 1 QT 299 T 173 QTc 407 Conclusion Atrial fibrillation... atrial activity I have reviewed and interpreted ECG and agree with software generated interpretation.
--- NOTE | 2023-11-29 02:37 | W.PCEDHO ---
Registration Status: Primary Language: Preferred Language: ED Information & Data Chief Complaint Chest Pain 11/29/23 01:33 Chief Complaint Chest Pain 11/28/23 22:52 Triage Note increased weakness with 11/28/23 22:41 chest shoulder and teeth pain, history of low hemoglobin, having trouble all day today Medical / Surgical History (Last Reviewed 11/29/23 @ 01:26 by Kian Valverde MD) Intracranial hemorrhage Discharge planning issues diverticulosis adenoma colon polyp Prosthetic Aortic Valve Overweight Hearing loss (Last Reviewed 11/29/23 @ 01:26 by Kian Valverde MD) H/O prosthetic aortic valve replacement redo of aortic valve hernia/hydrocele repair Appendectomy Aortic valve replaced Most Recent Vital Signs Temperature 37.0 C 11/29/23 01:55 Temperature Source Temporal Artery Scan 11/28/23 22:41 Pulse 112 H 11/29/23 02:05 Pulse 102 H 11/29/23 02:05 Respiratory Rate 22 11/29/23 02:05 Respiratory Effort Normal 11/29/23 01:34 Respiratory Depth Normal 11/29/23 01:34 Respiratory Pattern Normal 11/29/23 01:34 Blood Pressure 129/53 L 11/29/23 02:05 Blood Pressure Mean 80 11/29/23 02:05 Blood Pressure Position Sitting 11/28/23 22:41 Pulse Oximetry 99 11/29/23 02:05 Oxygen Delivery Method Room Air 11/29/23 01:55 Oxygen Flow Rate 0 11/29/23 01:55 Pain Level 0 11/28/23 22:41 Comment worse with movement 11/28/23 22:41 Allergies PEACH SKINS Adverse Reaction (Uncoded 11/28/23 23:28) Other (See Comment) [employer] Precautions Isolation Standard precaution 11/29/23 01:33 Active Medications Generic Name Dose Route Start Last Admin Trade Name Freq PRN Reason Stop Dose Admin Furosemide 40 mg 11/29/23 01:37 11/29/23 02:06 Furosemide 40 Mg/4 Ml Vial IVP 11/29/23 01:38 40 mg DIRECTED ONE Administration Metoprolol Tartrate 25 mg 11/29/23 01:44 11/29/23 02:06 Metoprolol 25 Mg Tab PO 11/29/23 01:45 25 mg NOW ONE Administration Diet Orders Category Date Time Status Low Sodium [DIET] Nutrition 11/29/23 Breakfast Active Diagnostics 11/29/23 11/29/23 11/29/23 Range/Units 08:30 05:35 01:49 WBC (4.4-10.8) 10^3/uL RBC (4.36-5.78) 10^6/uL Hgb Pending (13.5-17.5) g/dL Hct Pending (40.0-50.0) % MCV (80-95) fL MCH (27.0-33.0) pg MCHC (32.0-36.0) % RDW (11.8-14.1) % Plt Count (130-400) 10^3/uL MPV (8.0-11.0) fL Immature Gran % % Neutrophils % % Lymphocytes % % Monocytes % % Eosinophils % % Basophils % % Nucleated RBC % (0.0-0.3) % Absolute Neutrophils (1.2-6.7) 10^3/uL Absolute Lymphocytes (1.2-3.4) 10^3/uL Absolute Monocytes (0.1-0.8) 10^3/uL Absolute Eosinophils (0.0-0.7) 10^3/uL Absolute Basophils (0.0-0.2) 10^3/uL RBC Morphology Polychromasia Hypochromasia Poikilocytosis Anisocytosis Macrocytosis PT Pending (9.1-11.1) sec INR Pending (0.9-1.1) APTT (23.6-32.8) sec Sodium (136-145) mmol/L Potassium (3.5-5.1) mmol/L Chloride (98-107) mmol/L Carbon Dioxide (21.0-32.0) mmol/L Anion Gap (3-11) mmol/L BUN (7-18) mg/dL Creatinine (0.70-1.30) mg/dL Est GFR (CKD-EPI 2020) (mL/min/1.73m2) Glucose (74-106) mg/dL Calcium (8.5-10.1) mg/dL Total Bilirubin (0.2-1.0) mg/dL AST (15-37) U/L ALT (16-63) U/L Alkaline Phosphatase (46-116) U/L Troponin I Pending (<or=76) ng/L NT-Pro-B Natriuret Pep (<300) pg/mL Total Protein (6.4-8.2) g/dL Albumin (3.4-5.0) g/dL Procalcitonin ng/mL TSH (0.36-3.74) uIU/mL Free T4 (0.76-1.46) ng/dL Urine Color (Yellow) Urine Clarity (Clear) Urine pH (5-8) Ur Specific [place] (1.005-1.025) Urine Protein (Neg-Trace) mg/dL Urine Ketones (Negative) mg/dL Urine Blood (Negative) Urine Nitrite (Negative) Urine Bilirubin (Negative) Urine Urobilinogen (Up to 0.2) mg/dL Ur Leukocyte Esterase (Negative) Urine Glucose (Negative) mg/dL ABO/Rh Antibody Screen Crossmatch 11/29/23 11/29/23 11/28/23 Range/Units 01:35 00:20 23:50 WBC (4.4-10.8) 10^3/uL RBC (4.36-5.78) 10^6/uL Hgb (13.5-17.5) g/dL Hct (40.0-50.0) % MCV (80-95) fL MCH (27.0-33.0) pg MCHC (32.0-36.0) % RDW (11.8-14.1) % Plt Count (130-400) 10^3/uL MPV (8.0-11.0) fL Immature Gran % % Neutrophils % % Lymphocytes % % Monocytes % % Eosinophils % % Basophils % % Nucleated RBC % (0.0-0.3) % Absolute Neutrophils (1.2-6.7) 10^3/uL Absolute Lymphocytes (1.2-3.4) 10^3/uL Absolute Monocytes (0.1-0.8) 10^3/uL Absolute Eosinophils (0.0-0.7) 10^3/uL Absolute Basophils (0.0-0.2) 10^3/uL RBC Morphology Polychromasia Hypochromasia Poikilocytosis Anisocytosis Macrocytosis PT (9.1-11.1) sec INR (0.9-1.1) APTT (23.6-32.8) sec Sodium (136-145) mmol/L Potassium (3.5-5.1) mmol/L Chloride (98-107) mmol/L Carbon Dioxide (21.0-32.0) mmol/L Anion Gap (3-11) mmol/L BUN (7-18) mg/dL Creatinine (0.70-1.30) mg/dL Est GFR (CKD-EPI 2020) (mL/min/1.73m2) Glucose (74-106) mg/dL Calcium (8.5-10.1) mg/dL Total Bilirubin (0.2-1.0) mg/dL AST (15-37) U/L ALT (16-63) U/L Alkaline Phosphatase (46-116) U/L Troponin I 24 (<or=76) ng/L NT-Pro-B Natriuret Pep (<300) pg/mL Total Protein (6.4-8.2) g/dL Albumin (3.4-5.0) g/dL Procalcitonin ng/mL TSH (0.36-3.74) uIU/mL Free T4 (0.76-1.46) ng/dL Urine Color Yellow (Yellow) Urine Clarity Clear (Clear) Urine pH 5.5 (5-8) Ur Specific [place] 1.020 (1.005-1.025) Urine Protein Negative (Neg-Trace) mg/dL Urine Ketones Negative (Negative) mg/dL Urine Blood Negative (Negative) Urine Nitrite Negative (Negative) Urine Bilirubin Negative (Negative) Urine Urobilinogen 1.0 H (Up to 0.2) mg/dL Ur Leukocyte Esterase Negative (Negative) Urine Glucose Negative (Negative) mg/dL ABO/Rh B Positive Antibody Screen NEGATIVE Crossmatch See Detail 11/28/23 Range/Units 22:56 WBC 4.21 L (4.4-10.8) 10^3/uL RBC 1.82 L (4.36-5.78) 10^6/uL Hgb 5.3 L* D (13.5-17.5) g/dL Hct 18.2 L* (40.0-50.0) % MCV 100 H D (80-95) fL MCH 29.1 (27.0-33.0) pg MCHC 29.1 L (32.0-36.0) % RDW 19.8 H (11.8-14.1) % Plt Count 130 D (130-400) 10^3/uL MPV 10.6 (8.0-11.0) fL Immature Gran % 0.0 % Neutrophils % 59.0 % Lymphocytes % 36.0 % Monocytes % 5.0 % Eosinophils % 0.0 % Basophils % 0.0 % Nucleated RBC % 2.0 H (0.0-0.3) % Absolute Neutrophils 2.48 (1.2-6.7) 10^3/uL Absolute Lymphocytes 1.52 (1.2-3.4) 10^3/uL Absolute Monocytes 0.21 (0.1-0.8) 10^3/uL Absolute Eosinophils 0.00 (0.0-0.7) 10^3/uL Absolute Basophils 0.00 (0.0-0.2) 10^3/uL RBC Morphology See Below Polychromasia Present Hypochromasia 2+ Poikilocytosis 1+ Anisocytosis 1+ Macrocytosis 1+ PT 31.2 H (9.1-11.1) sec INR 3.5 H (0.9-1.1) APTT 25.2 (23.6-32.8) sec Sodium 140 (136-145) mmol/L Potassium 4.8 (3.5-5.1) mmol/L Chloride 110 H (98-107) mmol/L Carbon Dioxide 22.7 (21.0-32.0) mmol/L Anion Gap 7.3 (3-11) mmol/L BUN 55 H (7-18) mg/dL Creatinine 1.6 H (0.70-1.30) mg/dL Est GFR (CKD-EPI 2020) 41.96 (mL/min/1.73m2) Glucose 145 H (74-106) mg/dL Calcium 8.8 (8.5-10.1) mg/dL Total Bilirubin 0.89 (0.2-1.0) mg/dL AST 23 (15-37) U/L ALT 13 L (16-63) U/L Alkaline Phosphatase 60 (46-116) U/L Troponin I 19 (<or=76) ng/L NT-Pro-B Natriuret Pep 1391 H (<300) pg/mL Total Protein 5.3 L (6.4-8.2) g/dL Albumin 2.6 L (3.4-5.0) g/dL Procalcitonin 0.1 ng/mL TSH 4.88 H (0.36-3.74) uIU/mL Free T4 1.10 (0.76-1.46) ng/dL Urine Color (Yellow) Urine Clarity (Clear) Urine pH (5-8) Ur Specific [place] (1.005-1.025) Urine Protein (Neg-Trace) mg/dL Urine Ketones (Negative) mg/dL Urine Blood (Negative) Urine Nitrite (Negative) Urine Bilirubin (Negative) Urine Urobilinogen (Up to 0.2) mg/dL Ur Leukocyte Esterase (Negative) Urine Glucose (Negative) mg/dL ABO/Rh Antibody Screen Crossmatch 11/28/23 23:15 Blood Culture - Pending Blood 11/28/23 23:10 Blood Culture - Pending Blood Intake and Output - 24 Hour Total 11/28/23 22:33 thru 11/28/23 22:41 Weight 85.729 kg Falls Risk Assessment History of Falls No History 11/29/23 01:36 Contributing Factors No Factors 11/29/23 01:36 Ambulatory Aids Independent 11/29/23 01:36 Tubes/Lines None 11/29/23 01:36 Gait Evaluation No gait disturbance 11/29/23 01:36 Cognition No cognitive impairment 11/29/23 01:36 Fall Total Score 0 11/29/23 01:36 Level of Risk Standard/Low Risk 11/29/23 01:36 Problems (Last Reviewed 11/29/23 @ 01:26 by Kian Valverde MD) Atrial flutter with rapid ventricular response (Acute) Anemia (Chronic) v v v v v v v v v Sending and/or Receiving Nurses: Please use comment section below to note any information pertinent to the patient hand-off not included above. Information / Comments: +CP, a-fib. given 15mg iv diltiazem and po and ivp metoprolol. lungs cta. patient has just been discharged on wednesday. pt given 1 unit of PRBCs in the ER. slight ankle edema. Report received from:Osmany Stratton RN
[2023-11-29 03:01] LABS: Troponin I 33 ng/L (<or=76)
[2023-11-29] MEDS: Metoprolol CR 100 MG TABCR PO (08:05)
[2023-11-29] MEDS: Ferrous Sulfate 325 MG TAB PO (08:05)
[2023-11-29] MEDS: Pantoprazole 40 MG TABCR PO (08:05)
[2023-11-29 08:10] LABS: HCT 26.6 % (40.0-50.0); HGB 8.3 g/dL (13.5-17.5)
[2023-11-29 08:22] LABS: Prothrombin Time 27.8 sec (9.1-11.1)
--- NOTE | 2023-11-29 08:34 | INITIAL_ITS ---
Date of service: 11/29/23 Time of Service: 08:34 Care Management Initial Assmt Initial Assessment Reason for Hospitalization: Anemia Functional Status/Living Situation Patient Presentation: Abrahan was sitting up in bed visiting with his daughter Jenna when CM met with him. He was fully dressed and stated he is feeling well. Abrahan was admitted again with anemia and required transfusion. His initial Hgb was 5.3. This morning it was 8.3 and a repeat will be done at 1600. Abrahan stated that he would like to go home. He feels that nothing more will be done for him until he needs another transfusi on and he would rather be at home. His daughter Jenna agreed. The provider will re-evaluate the decision to discharge him when the results of the late afternoon Hgb are available. Abrahan is scheduled to have a Palliative Care consult this afternoon with Dr. Finch to discuss goals of care. His transfusion requirement has increasewd from once a week to every 2-3 days. he has known MDS and has only been receiving treatment for about 6 weeks. 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 supplement Care Team Visit Care Team Role Provider Type Rafiq El MD Primary Care Provider NON-[facility] STAFF PHYSICIAN Roxann Matta MD Other Providers NON-[facility] STAFF PHYSICIAN XI Santana Other Providers PHYSICIANS ASSISTANT Loly Bee RIMD BRITANY Other Providers [facility] STAFF PHYSICIAN Josef Juarez MD Other Providers CONSULTING PHYSICIAN Flaquito Ravi MD Other Providers CONSULTING PHYSICIAN Umesh Zacarias MD Other Providers NON-[facility] STAFF PHYSICIAN Umesh Salazar DO Other Providers CONSULTING PHYSICIAN Subhash Gonzales MD Other Providers [facility] STAFF PHYSICIAN Angel Liao Other Providers CONSULTING PHYSICIAN Christiano Swift MD Other Providers CONSULTING PHYSICIAN Jaclyn Ryan, DO Other Providers OSTEOPATHIC DOCTOR Dionna Hussein, DO Other Providers CONSULTING PHYSICIAN Helio Leiva MD Other Providers CONSULTING PHYSICIAN Cornelio Olsen, DO Other Providers CONSULTING PHYSICIAN Mita Cota Other Providers NON-[facility] STAFF PHYSICIAN Harlan Sparrow MD Other Providers [facility] STAFF PHYSICIAN Suzan Nava, DO Other Providers OSTEOPATHIC DOCTOR Gregg Johnson, DO Other Providers OSTEOPATHIC DOCTOR Kellen Baer MD Other Providers [facility] STAFF PHYSICIAN Gucci Melo, DO Emergency Provider [facility] STAFF PHYSICIAN Kian Valverde MD Admit Provider [facility] STAFF PHYSICIAN Attending Provider Discharge Potential Discharge Needs: PCP F/U Appt Anticipated Barriers to Discharge: Medical Status Patient/Family Education Needs: Review discharge instructions, discuss Ask Me Three Transportation: Private vehicle Plan: Anticipate Umesh will be discharged home when medically cleared with no new services. He will follow up with his PCP and plan of care and transport with family. CM will follow and continue to support discharge needs. 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) Diverticulosis of colon without diverticulitis (Chronic) Acute blood loss anemia (Acute) Upper GI bleed (Acute) Anemia (Chronic) 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 ear (Acute) Sensorineural hearing loss (SNHL) of right ear with restricted hearing of left ear (Acute) Sensorineural hearing loss of combined sites, bilateral (Acute 08/03/16) Medical History (Updated 09/16/24 @ 15:58 by Chrissy Finch MD) Prosthetic cardiac valve vegetation Intracranial hemorrhage Discharge planning issues diverticulosis adenoma colon polyp Prosthetic Aortic Valve Overweight Hearing loss bilat Surgical History H/O prosthetic aortic valve replacement redo of aortic valve hernia/hydrocele repair Appendectomy Aortic valve replaced Social History Smoking/Tobacco Use Status: Current-Occasional Smoking risk assessment performed?: Yes Alcohol Intake: current Alcohol Intake frequency: holidays/special occasions only Alcohol type: wine Drug use: Never Substance use type: does not use Housing: house Do you feel safe at home: Yes Do you feel safe in your relationship?: Yes Readmission Within the Past 30 Days Yes or No: Yes Date of First Admission Date of 1st Admission: 11/24/23 Date of this Admission Date of Admission: 11/29/23 This admission was: Through ED Office Visit Since 1st Admission Have you seen your PCP in the office since discharge?: No Had an appointment Been Scheduled?: Yes SDOH(Care Management) Screening Will the Patient Participate in the Screening?: Yes Do you worry about having a steady place to live?: no In the past 12 months, have you had to go without electric, gas, oil or water in your home?: no Have you or anyone in your house had to go without enough food to eat?: no Has lack of transportation kept you from medical appointments or from doing things needed for daily living?: no Has anyone in your support network made you feel unsafe for any reason?: no Health Related Social Needs Health related social needs details: denied problems
--- NOTE | 2023-11-29 11:51 | W.PM.PROGNOT ---
Date of Service Date of service: 11/29/23 Time of Service: 11:51 Assessment and Plan Assessment and plan (1) Atrial flutter with rapid ventricular response: Status: Acute Assessment and plan: Triggered by profound anemia, now rate better controlled back on his home metoprolol after transfusion after getting diltiazem in ED and some additional metoprolol in tartrate form overnight. Continue oral metoprolol succinate. (2) Anemia: Status: Chronic Assessment and plan: This is chronic and associated with GI blood loss as well as myelodysplasia. GI notes from [facility] [place] reviewed. He had an EGD/[facility] in July which did show bleeding in duodenum. EGD along with capsule endoscopy of small bowel at [facility] [place] 09/21/23, this time without finding a source for bleeding. Following with Heme/Onc and getting aranesp and iron Has been getting weekly transfusions on Wednesday, but in the past week was transfused Wednesday and then admitted Wednesday night with profound anemia again. We discussed we may need to run the INR lower, understanding the risk of clot. 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 (4) H/O mechanical aortic valve replacement: Status: Chronic Assessment and plan: Has been on warfarin with goal INR 2.5-3.5 despite ICH 07/28 (was held for 2 weeks then) and current tranfusion-dependant anemia. INR 3.5 on admission, 3.0 today. Holding for now. See above. (5) Myelodysplastic syndrome: Status: Acute Assessment and plan: heme/onc notes from [facility] reviewed. Subjective Subjective Patient reports: tolerating a regular diet; denies blood in stool, shortness of breath or fever Interval history since last seen: Events: s/p 2 units PRBC overnight He feels much better this morning. Pain in the chest and neck went away with blood transfusion. He is walking around and not dizzy, no CP or SOB. He ate breakfast. He has not noted blood in stool or other bleeding. Exam Narrative Exam Narrative: GEN: Alert and oriented, walking in room, no acute distress. HEENT: MMM, anicteric; neck supple, JVP not elevated. ; lungs clear; heart regular with systolic murmur and mechanical S2; abdomen soft and NT; extremities trace pedal edema. Objective Last Vital Signs Temp 36.8 C 11/29/23 08:00 Pulse 92 H 11/29/23 10:44 Resp 20 11/29/23 10:44 BP 111/67 11/29/23 10:44 Pulse Ox 98 11/29/23 06:30 Laboratory Results - last 24 hr 11/28/23 11/28/23 11/29/23 22:56 23:50 00:20 WBC 4.21 L RBC 1.82 L Hgb 5.3 L* D Hct 18.2 L* MCV 100 H D MCH 29.1 MCHC 29.1 L RDW 19.8 H Plt Count 130 D MPV 10.6 Immature Gran % 0.0 Neutrophils % 59.0 Lymphocytes % 36.0 Monocytes % 5.0 Eosinophils % 0.0 Basophils % 0.0 Nucleated RBC % 2.0 H Absolute Neutrophils 2.48 Absolute Lymphocytes 1.52 Absolute Monocytes 0.21 Absolute Eosinophils 0.00 Absolute Basophils 0.00 RBC Morphology See Below Polychromasia Present Hypochromasia 2+ Poikilocytosis 1+ Anisocytosis 1+ Macrocytosis 1+ PT 31.2 H INR 3.5 H APTT 25.2 Sodium 140 Potassium 4.8 Chloride 110 H Carbon Dioxide 22.7 Anion Gap 7.3 BUN 55 H Creatinine 1.6 H Est GFR (CKD-EPI 2020) 41.96 Glucose 145 H Calcium 8.8 Total Bilirubin 0.89 AST 23 ALT 13 L Alkaline Phosphatase 60 Troponin I 19 24 NT-Pro-B Natriuret Pep 1391 H Total Protein 5.3 L Albumin 2.6 L Procalcitonin 0.1 TSH 4.88 H Free T4 1.10 Urine Color Urine Clarity Urine pH Ur Specific [place] Urine Protein Urine Ketones Urine Blood Urine Nitrite Urine Bilirubin Urine Urobilinogen Ur Leukocyte Esterase Urine Glucose ABO/Rh B Positive Antibody Screen NEGATIVE Crossmatch See Detail 11/29/23 11/29/23 11/29/23 01:35 02:35 07:57 WBC RBC Hgb 8.3 L D Hct 26.6 L MCV MCH MCHC RDW Plt Count MPV Immature Gran % Neutrophils % Lymphocytes % Monocytes % Eosinophils % Basophils % Nucleated RBC % Absolute Neutrophils Absolute Lymphocytes Absolute Monocytes Absolute Eosinophils Absolute Basophils RBC Morphology Polychromasia Hypochromasia Poikilocytosis Anisocytosis Macrocytosis PT 27.8 H INR 3.0 H APTT Sodium Potassium Chloride Carbon Dioxide Anion Gap BUN Creatinine Est GFR (CKD-EPI 2020) Glucose Calcium Total Bilirubin AST ALT Alkaline Phosphatase Troponin I 33 NT-Pro-B Natriuret Pep Total Protein Albumin Procalcitonin TSH Free T4 Urine Color Yellow Urine Clarity Clear Urine pH 5.5 Ur Specific [place] 1.020 Urine Protein Negative Urine Ketones Negative Urine Blood Negative Urine Nitrite Negative Urine Bilirubin Negative Urine Urobilinogen 1.0 H Ur Leukocyte Esterase Negative Urine Glucose Negative ABO/Rh Antibody Screen Crossmatch Time Spent with Patient Time Spent with Patient: >50 minutes (70 minutes) Time was spent: preparing to see the patient(eg.review tests), obtaining and/or reviewing separately otained hiistory, ordering medications,tests, procedures, referring, communicating with other health progressive care nurse, indepentently interpreting results, counseling the patient and care coordination
--- NOTE | 2023-11-29 13:33 | W.PALLCONSUL ---
Date of service: 11/29/23 Time of Service: 13:33 History of Present Illness Narrative: DRAFT DO NOT READ Umesh Smith is an 83-year-old gentleman from [facility] who has a history of myelodysplasia, history of mechanical aortic valve (long-term Coumadin INR target 2.5?3.5), Hx R cerebellar intracranial hemmorhage(2016), and recurrent GI bleeding (no source found despite GI workup), multifactorial anemia (more and more frequent transfusions needed), CHF, atrial fibrillation. Additionally, he has a history of Enterococcus endocarditis. He has developed chronic anemia initially felt to be due to relatively new diagnosis of myelodysplasic syndrome (based on borderline bone marrow biopsy August 2023 at [facility]) and now with ongoing GI bleeding while continuing require anticoagulationwith warfarin for his mechanical heart valve. He has been receiving frequent blood transfusions afib, heme positive stools, falling hemoglobin (quite low down to 5.3 yesterday upon admission compared to 7.7 48 hours earlier). He has had multiple [facility] ER visits and overnight stays, and an 8-day [facility] late September stay for this problem. Palliative care team has been consulted by hospitalist to help patient family and hospital team sort out goals of care, discussed treatment options, and add additional level of support. Information obtained from hospital chart, patient, family, hospitalist as well as [facility] chart. Patient is seen in ICU room along with daughter Jenna. He is wearing history close because he is ready to go home. Additional info and history from daughter Jenna: -5 weeks ago started getting aranesp every other week (3 dose so far) -Daughter Jenna prescribes fairly constant ED visits either here or at [facility] since July. GI bleed: -Colonoscopy and EGD 07/26/2023 [facility]: Copious melena in colon but no source of bleeding found either upper or lower GI tract. -CT abdomen/pelvis July 2023: Only diverticulosis. -During September 2023: Capsule endoscopy (negative), push enteroscopy early September 2023, no active bleeding found. Initially when I asked patient why he is in the hospital, he describes the episodes when he gets very anemic and he gets very short of breath and very tachycardic and feels weak all over, has pain in his jaw and his arm. And it feels just sick and terrible . When this happens he is unable to do anything. He then knows he needs to get a transfusion and he feels instantly better after the transfusion. Care Team: Primary Care physician:Rafiq El MD [facility] Cardiology: Patient cannot name somebody. Gastroenterology: Did not answer. ONcology: Dr. Pace (myelodyspalsia) Social HX: Marital Status: Lives with Jessy (daughter describes that she has many medical problems including A-fib, is anticoagulated, is obese and has trouble walking,can drive and walk only small distances).. 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 Hobbies: [place], fish (very little this summer), Fixing things, watching TV, reads, Additional Services: Son helps with mowing. Family helps with chores (does not want help). Jenna comes every 1-2 weeks to help do laundry and vacuuming. No paid help. Impression of currents health status: OK, Sometimes sick and sometimes better. Patient is actually somewhat evasive on this question. Earlier he told me how sick he has been on and off and when I ask him how his health is he says okay. What bothers you the most: I first tells me that nothing bothers him. When further encouraged to think, he tells me it bothers him when he has anginal equivalent when heart going fast and anemic. What worries you the most: Whether or not his son is going to mow the lawn. This sounded somewhat sarcastic, I shared that I suspect that he was quite worried having to be in the hospital so often. He shares that he is not worried about having to have frequent transfusions. Goals: Somewhat tangential. Hopes he will be able to mow his lawn again. If coming to the hospital regularly is needed, he will do this. Unable to come up with any goals. Unable to tell me any situation he is afraid of. I would say he is somewhat evasive when we talk about medical future even though he gives permission to discuss prognosis. Jenna is more open, but is unable to get him to talk more about this. Current information preferences: Function: Ambulation: Independent ADLs: Independent iADLs: Does what he can. He shares cooking with other family members, does bills. Hearing: Hearing aids. Vision: OK Cognition: Memory is pretty good, (daughter says sometimes confused). Falls: Rare fall. Driving: continue to drive is feeling OK. Palliative Performance Scale % Ambulation Activity and Evidence of Disease Self Care Intake Level of Consciousness 100 Full Normal activity, no evidence of disease Full Normal Full 90 Full Normal activity, some evidence of disease Full Normal Full 80 Full Normal activity with effort, some evidence of disease Full Normal or reduced Full 70 Reduced Unable to do normal work, some evidence of disease Full Normal or reduced Full 60 Reduced Unable to do hobby or some housework, significant disease Occasional assist necessary Normal or reduced Full or confusion 50 Mainly sit/lie Unable to do any work, extensive disease Considerable assistance required Normal or reduced Full or confusion 40 Mainly in bed Unable to do any work, extensive disease Mainly assistance Normal or reduced Full, drowsy, or confusion 30 Totally bed bound Unable to do any work, extensive disease Total care Reduced Full, drowsy, or confusion 20 Totally bed bound Unable to do any work, extensive disease Total care Minimal sips Full, drowsy, or confusion 10 Totally bed bound Unable to do any work, extensive disease Total care Mouth care only Drowsy or coma 0 - - - - Patient Score: 70-80 Spiritual history: Not jain. Palliative review of systems: Pain: None currently Dyspnea: See HPI GI symptoms: Appetite: Depression: Anxiety: None Emotional Distress: Spiritual/Existential Distress: Labs: 11/29/2023 Cr: 1.6 (recently 1.1?1.6) Liver panel: Normal Albumin: 2.6 CBC: Hemoglobin 8.3 (5.3 yesterday, status post transfusions), platelets 130 Advanced Care Planning: Advanced Directive: 2013 advance directive on file Health Care Agent: From 2013 AD: Jessy is healthcare agent, son Umesh and daughter Claire Castro alternates COLST: Patient requested DNR/DNI at time of admission on 11/28/2023 (change from previous full CODE STATUS). Patient and I went through COLST today he again (11/29/2023): Patient wishes to be DNR, not sure about intubation(I would therefore make him a trial of intubation, but hopefully if he needs to be intubated they will be time to discuss with him and his family) +transfer, +treat, +antibiotics, COnitnue transfusions Limitations: Assessment and Plan Assessment and plan (1) GI bleed: Status: Chronic Assessment and plan: Patient is an 83-year-old gentleman in a medical situation where he had been stable using warfarin for anticoagulation for his mechanical heart valve literally for decades but over the last 4 months has developed myelodysplastic syndrome (with worsening anemia) and intermittent GI bleeding. At times he has had profound anemia and this has caused a rapid A-fib which is quite symptomatic with what sounds like anginal equivalent. He has had GI investigations without discerning any obvious source of bleeding. Over the last 6 weeks he has had accelerating need for blood transfusions (likely 10 or more units in the last 6 weeks, I am unable to find data I need to quantitate this). He is also had to come to the ER when he is symptomatic from the profound anemia with rapid A-fib. I also note that patient does not seem to have a education spec who he is able to name, and he tells me that I am my best education spec . He also tells me that he is the best person at managing his PT?INR. Certainly some truth to this, he tells me that he thinks it would be better if his INR was between 2 and 2.5. Of note his PCP Dr. Raymundo was helping him manage his INR and this doctor recently retired. He is not sure he trusts his new PCP yet. Medical decisions: There is some difficult decisions to be made, weighing hypothetical risks and benefits of: -Whether or not to hold anticoagulation, even briefly and for how long. Risk of stroke in folks with mechanical valves not on anticoagulation is 4% a year. -Whether or not to further try to identify source of GI bleeding with further investigations. This is somewhat complicated by the fact that patient does not seem to trust his education spec or his new PCP yet. 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 Chrissy Pace.. I feel that everyone on the team would benefit from having more input from specialty team members and even better if they could meet in some sort of interdisciplinary fashion to discuss this challenging case. It will be much easier to have goals of care discussion with this patient and family if we have a better idea of prognosis. I did not feel that I was engaging well with patient today. There may have been a bit of denial going on. Even though he gave me permission to discuss his illness and prognosis, he change the subject and was evasive every time we tried to explore his current medical problem and possible complications going forward. Today's visit laid the groundwork with him and his family for future conversations. Palliative care team will plan to meet with him again within the next 2 to 4 weeks. Goals of care: Although patient did not engage about describing where he thought he was in his illness or what was bothering her worrying him, or his hopes or wishes or fears for the future, he was very clear that he can continue to come in to the hospital for transfusions, no matter how often he has to come in. He is clear that these make him feel instantly better. He feels like he can do this forever . (It was explained to him that unfortunately most people cannot do transfusions forever and eventually run into some complications) He does not want to stop anticoagulation, but he does advocate aiming for a lower INR and he proposes an INR of 2?2.5 (remember that he is basically managing his own PT/INR and has a home machine). I did ask him what he thought he would decide if it was proposed that he have another procedure such as another endoscopy or another test, but he changed the subject. As I was leaving the room, surgeon came in and propose that a tagged bleeding scan be done. I do not know the outcome of this visit. Advance care planning: Patient has COLST on file and this is reviewed and he confirms his choice of healthcare agents. Hospitalist documented conversation with him yesterday that he wanted to switch to DNR/DNI. However no COLST was completed. We revisited this decision. We discussed the procedure of CPaR, actual mechanical process, rate of success in restoring heartbeat, short and long-term side effects in survivors (including likely decreased physical and cognitive functioning). He says that if his heart stops he just wants to fall over . Does not want chest compressions or defibrillation. When I asked him what he would want done if he had respiratory failure, for example if he had a severe pneumonia and was not responding to oxygen and IV antibiotics, he is not sure what he would want. He would want to think about it. He then changed the subject. Decision made to check this off as trial of intubation, patient unsure, please discuss with patient and family . I hope to revisit this with him at our next discussion. COLST was completed stating DNR, trial of intubation, use antibiotics, IV fluids, transfer and treat. Patient absolutely wants to continue transfusions. Follow-up: Again, patient had a very difficult medical situation (between a rock and a hard place). Palliative care team will continue to follow along with hospital team, PCP and specialist. We will plan to meet again with patient in about a month. We are happy to see him sooner in the hospital, office or at home in [place] if requested. 16 to 30 minutes spent today on Advance Care Planning. Patient and family participated voluntarily. Advance care planning may include (not limited to) explanation and discussion of advance directives, choosing and appointing healthcare agents, alternatives to various ACP tools, discussion of (and if indicated, completion of) COLST form, discussion of patient's values and overall goals for treatment, palliative and disease directive care options, ways to avoid hospital readmission including hospice discussions, care preferences should the patient's several other adverse health events.See today's palliative care note for additional information. This note was dictated using speech recognition software. Attempt was made at proofreading, but errors may be present. Please call with questions. (2) Acute blood loss anemia: Status: Acute (3) Chronic anticoagulation: Status: Chronic (4) H/O mechanical aortic valve replacement: Status: Chronic (5) Myelodysplastic syndrome: Status: Acute (6) Palliative care encounter: Status: Acute (7) Advanced care planning/counseling discussion: Status: Acute (8) DNR (do not resuscitate): Status: Acute [facility] All Active Problems (Updated 11/29/23 @ 15:58 by Chrissy Finch MD) DNR (do not resuscitate) (Acute) Not sure about intubation, +treat, +transfer, +abx, +IV fluids Advanced care planning/counseling discussion (Acute) Palliative care encounter (Acute) GI bleed (Chronic) Atrial flutter with rapid ventricular response (Acute) Anemia (Chronic) Atrial fibrillation (Chronic) Atrial flutter (Acute) Chronic anticoagulation (Chronic) Myelodysplastic syndrome (Acute) Anemia (Chronic) Encounter for blood transfusion (Acute) Anemia (Chronic) 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) Diverticulosis of colon without diverticulitis (Chronic) Acute blood loss anemia (Acute) Upper GI bleed (Acute) Anemia (Chronic) 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 ear (Acute) Sensorineural hearing loss (SNHL) of right ear with restricted hearing of left ear (Acute) Sensorineural hearing loss of combined sites, bilateral (Acute 08/03/16) Medical History (Updated 11/29/23 @ 15:58 by Chrissy Finch MD) Prosthetic cardiac valve vegetation Intracranial hemorrhage Discharge planning issues diverticulosis adenoma colon polyp Prosthetic Aortic Valve Overweight Hearing loss bilat Surgical History H/O prosthetic aortic valve replacement redo of aortic valve hernia/hydrocele repair Appendectomy Aortic valve replaced Social History Smoking/Tobacco Use Status: Current-Occasional Smoking risk assessment performed?: Yes Alcohol Intake: current Alcohol Intake frequency: holidays/special occasions only Alcohol type: wine Drug use: Never Substance use type: does not use Housing: house Do you feel safe at home: Yes Do you feel safe in your relationship?: Yes Exam Narrative Exam Narrative: Pleasant talkative elderly gentleman appearing stated age. He is alert. He is oriented x 3. He is quite loquacious. He has no dyspnea. His color is good. He is reclining on his bed throughout my visit today. Speech is fluid, no word finding difficulties. Slightly hard of hearing with hearing aids on. Results Last Vital Signs Temp 36.8 C 11/29/23 08:00 Pulse 90 11/29/23 12:12 Resp 19 11/29/23 12:12 BP 109/82 11/29/23 12:12 Pulse Ox 98 11/29/23 06:30 Labs 11/29/23 15:55 11/28/23 22:56 Labs: Laboratory Results - last 24 hr 11/28/23 11/28/23 11/29/23 22:56 23:50 00:20 WBC 4.21 L RBC 1.82 L Hgb 5.3 L* D Hct 18.2 L* MCV 100 H D MCH 29.1 MCHC 29.1 L RDW 19.8 H Plt Count 130 D MPV 10.6 Immature Gran % 0.0 Neutrophils % 59.0 Lymphocytes % 36.0 Monocytes % 5.0 Eosinophils % 0.0 Basophils % 0.0 Nucleated RBC % 2.0 H Absolute Neutrophils 2.48 Absolute Lymphocytes 1.52 Absolute Monocytes 0.21 Absolute Eosinophils 0.00 Absolute Basophils 0.00 RBC Morphology See Below Polychromasia Present Hypochromasia 2+ Poikilocytosis 1+ Anisocytosis 1+ Macrocytosis 1+ PT 31.2 H INR 3.5 H APTT 25.2 Sodium 140 Potassium 4.8 Chloride 110 H Carbon Dioxide 22.7 Anion Gap 7.3 BUN 55 H Creatinine 1.6 H Est GFR (CKD-EPI 2020) 41.96 Glucose 145 H Calcium 8.8 Total Bilirubin 0.89 AST 23 ALT 13 L Alkaline Phosphatase 60 Troponin I 19 24 NT-Pro-B Natriuret Pep 1391 H Total Protein 5.3 L Albumin 2.6 L Procalcitonin 0.1 TSH 4.88 H Free T4 1.10 Urine Color Urine Clarity Urine pH Ur Specific [place] Urine Protein Urine Ketones Urine Blood Urine Nitrite Urine Bilirubin Urine Urobilinogen Ur Leukocyte Esterase Urine Glucose ABO/Rh B Positive Antibody Screen NEGATIVE Crossmatch See Detail 11/29/23 11/29/23 11/29/23 01:35 02:35 07:57 WBC RBC Hgb 8.3 L D Hct 26.6 L MCV MCH MCHC RDW Plt Count MPV Immature Gran % Neutrophils % Lymphocytes % Monocytes % Eosinophils % Basophils % Nucleated RBC % Absolute Neutrophils Absolute Lymphocytes Absolute Monocytes Absolute Eosinophils Absolute Basophils RBC Morphology Polychromasia Hypochromasia Poikilocytosis Anisocytosis Macrocytosis PT 27.8 H INR 3.0 H APTT Sodium Potassium Chloride Carbon Dioxide Anion Gap BUN Creatinine Est GFR (CKD-EPI 2020) Glucose Calcium Total Bilirubin AST ALT Alkaline Phosphatase Troponin I 33 NT-Pro-B Natriuret Pep Total Protein Albumin Procalcitonin TSH Free T4 Urine Color Yellow Urine Clarity Clear Urine pH 5.5 Ur Specific [place] 1.020 Urine Protein Negative Urine Ketones Negative Urine Blood Negative Urine Nitrite Negative Urine Bilirubin Negative Urine Urobilinogen 1.0 H Ur Leukocyte Esterase Negative Urine Glucose Negative ABO/Rh Antibody Screen Crossmatch Time Spent Time Spent with Patient Time Spent(min): 75
--- NOTE | 2023-11-29 15:37 | PHA.REVIEW2 ---
Pharmacy Admission Review Admission Clinical Review Admission Pharmacy Review: Advanced care planning/counseling discussion (Acute) Palliative care encounter (Acute) Atrial flutter with rapid ventricular response (Acute) Myelodysplastic syndrome (Acute) Acute blood loss anemia (Acute) PEACH SKINS Adverse Reaction (Uncoded 11/28/23 23:28) Other (See Comment) Resuscitation Status DNR/DNI Height 5 ft 9 in Weight 82.9 kg Pharmacy Admission Review Renal Dosing Renal Dosing: BUN 55 mg/dL (7-18) H 11/28/23 22:56 Creatinine 1.6 mg/dL (0.70-1.30) H 11/28/23 22:56 Medications needing adjustments: Reviewed (crcl = 39, adjustments not needed) Anticoagulation Anticoagulation: Hgb 8.3 g/dL (13.5-17.5) L D 11/29/23 07:57 Hct 26.6 % (40.0-50.0) L 11/29/23 07:57 Plt Count 130 10^3/uL (130-400) D 11/28/23 22:56 INR 3.0 (0.9-1.1) H 11/29/23 07:57 Creatinine 1.6 mg/dL (0.70-1.30) H 11/28/23 22:56 DVT Prophylaxis: Reviewed (currently none (GI bleed)) Therapeutic Anticoagulation: Reviewed Medications: Warfarin (held (GI bleed) home dose is 5 mg Sun, Tues, Thurs, Sat & 7 mg mon, wed, fri (goal INR 2.5-3.5 for mechanical aortic valve). INR on admission = 3.5, today = 3.0) Opiate Usage Evaluate Pain Scale/Pains Meds: Reviewed (not on opiates) Relevant Labs Relevant Labs: Sodium 140 mmol/L (136-145) 11/28/23 22:56 Potassium 4.8 mmol/L (3.5-5.1) 11/28/23 22:56 Chloride 110 mmol/L (98-107) H 11/28/23 22:56 Electrolytes, C-Reactive P, ESR: Reviewed (hgb = 8.3 from 5.3 yesterday) DM Control DM Control: N/A (no diabetes diagnosis, no a1c in chart to review) Cardiac Review Cardiac Review: Troponin I 33 ng/L (<or=76) 11/29/23 02:35 NT-Pro-B Natriuret Pep 1391 pg/mL (<300) H 11/28/23 22:56 BP, HR, EF%: Reviewed QTc Review QTc: Reviewed (QTc = 407 today) List meds needing interventions: n/a IV to PO Switch IV Medications: N/A (1x IV doses for metoprolol, lasix, diltiazem -- current meds ordered PO) Home Meds Home Med List reviewed: Reviewed Relevent Home Meds Not ordered & why?: warfarin - held for acute blood loss anemia -- restart when appropriate, ?consider lower INR goal going forward Current Meds Current Medication Order Review: Reviewed Pharmacy Antibiotic Review Relevant Labs: Relevant Labs 11/28/23 22:56 Procalcitonin 0.1
--- NOTE | 2023-11-29 16:01 | INITIAL_ITS ---
Care Management Initial [facility] Advance Directives Advance Directives: Do you have an Advance Directive: Y 10/04/20 08:56 AD On File at [facility]: Y 10/04/20 08:56 Date Asked AD Date Reviewed 11/28/23 11/28/23 22:49 COLST On File at [facility] No 11/24/23 16:54 COLST Date Scanned Code Status Resuscitation Status DNR Care Team Visit Care Team Role Provider Type Rafiq El MD Primary Care Provider NON-[facility] STAFF PHYSICIAN Roxann Matta MD Other Providers [facility] STAFF PHYSICIAN XI Santana Other Providers PHYSICIANS ASSISTANT Loly Bee [facility] Other Providers [facility] STAFF PHYSICIAN Josef Juarez MD Other Providers CONSULTING PHYSICIAN Flaquito Ravi MD Other Providers CONSULTING PHYSICIAN Umesh Zacarias MD Other Providers NON-[facility] STAFF PHYSICIAN Umesh Salazar, DO Other Providers CONSULTING PHYSICIAN Subhash Gonzales MD Other Providers [facility] STAFF PHYSICIAN Angel Liao Other Providers CONSULTING PHYSICIAN Christiano Swift MD Other Providers CONSULTING PHYSICIAN Jaclyn Ryan, DO Other Providers OSTEOPATHIC DOCTOR Dionna Hussein, DO Other Providers CONSULTING PHYSICIAN Helio Leiva MD Other Providers CONSULTING PHYSICIAN Cornelio Olsen, DO Other Providers CONSULTING PHYSICIAN Mita Cota Other Providers NON-[facility] STAFF PHYSICIAN Harlan Sparrow MD Other Providers [facility] STAFF PHYSICIAN Suzan Nava, DO Other Providers OSTEOPATHIC DOCTOR Gregg Johnson, DO Other Providers OSTEOPATHIC DOCTOR Kellen Baer MD Other Providers [facility] STAFF PHYSICIAN Gucci Melo, DO Emergency Provider [facility] STAFF PHYSICIAN Kian Valverde MD Admit Provider [facility] STAFF PHYSICIAN Attending Provider [facility] All Active Problems (Updated 11/29/23 @ 15:58 by Chrissy Finch MD) DNR (do not resuscitate) (Acute) Not sure about intubation, +treat, +transfer, +abx, +IV fluids Advanced care planning/counseling discussion (Acute) Palliative care encounter (Acute) GI bleed (Chronic) Atrial flutter with rapid ventricular response (Acute) Anemia (Chronic) Atrial fibrillation (Chronic) Atrial flutter (Acute) Chronic anticoagulation (Chronic) Myelodysplastic syndrome (Acute) Anemia (Chronic) Encounter for blood transfusion (Acute) Anemia (Chronic) 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) Diverticulosis of colon without diverticulitis (Chronic) Acute blood loss anemia (Acute) Upper GI bleed (Acute) Anemia (Chronic) 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 ear (Acute) Sensorineural hearing loss (SNHL) of right ear with restricted hearing of left ear (Acute) Sensorineural hearing loss of combined sites, bilateral (Acute 08/03/16) Medical History (Updated 11/29/23 @ 15:58 by Chrissy Finch MD) Prosthetic cardiac valve vegetation Intracranial hemorrhage Discharge planning issues diverticulosis adenoma colon polyp Prosthetic Aortic Valve Overweight Hearing loss bilat Surgical History H/O prosthetic aortic valve replacement redo of aortic valve hernia/hydrocele repair Appendectomy Aortic valve replaced Social History Smoking/Tobacco Use Status: Current-Occasional Smoking risk assessment performed?: Yes Alcohol Intake: current Alcohol Intake frequency: holidays/special occasions only Alcohol type: wine Drug use: Never Substance use type: does not use Housing: house Do you feel safe at home: Yes Do you feel safe in your relationship?: Yes Readmission Within the Past 30 Days Yes or No: Yes Date of First Admission Date of 1st Admission: 11/24/23 Date of this Admission Date of Admission: 11/29/23 This admission was: Through ED Office Visit Since 1st Admission Have you seen your PCP in the office since discharge?: No Had an appointment Been Scheduled?: Yes I. 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 Initially he was requiring transfusion about once a week and has been coming to the [facility] for bloodwork and transfusion if needed every Wednesday. Recently he has had to come in after only a couple of days. SDOH(Care Management) Screening Will the Patient Participate in the Screening?: Yes Do you worry about having a steady place to live?: no In the past 12 months, have you had to go without electric, gas, oil or water in your home?: no Have you or anyone in your house had to go without enough food to eat?: no Has lack of transportation kept you from medical appointments or from doing things needed for daily living?: no Has anyone in your support network made you feel unsafe for any reason?: no Health Related Social Needs Health related social needs details: denied problems
--- NOTE | 2023-11-29 16:28 | SCONE_ITS ---
Date of service: 11/29/23 Time of Service: 16:28 Assessment and Plan Assessment and plan (1) GI bleed: Status: Chronic Assessment and plan: I suppose the most likely source of his bleeding is probably the same place that was bleeding when I did his previous endoscopy. And since I was not able to localize it before, I don't think there is much benefit to repeating the exercise. Furthermore, I think most of the likely sources of the bleeding would be directly linked to the therapeutic anticoagulation. And I am skeptical that any endoscopic intervention will offer a durable fix with ongoing anticoagulation needed in the future. In lieu of EGD, I think a bleeding scan would offer the next best option in terms of diagnsotics. It should be sensitive enough to detect clinically meaningful bleeding in a case like Fito, but it is also very likely that any information resulting from that study would necessitate transfer to [facility] for definitive treatment since EGD and colonoscopy were not therapeutic here. History of Present Illness History of Present Illness Chief Complaint: Anemia Narrative: I am happy to see Umesh again. I know Umesh his from his previous hospitalization and I performed his EGD and colonoscopy. At that time it appeared that the bleeding was from the upper GI tract, and most likely the duodenum or proximal small intestine. Unfortunetly, the endoscopy was not therapuetic and he was transferred to [facility] for more advanced endoscopy in an effort to localize and treat the bleeding. The source of his GI blood loss was never identified. However, he was found to have a myelodysplastic disorder that has certainly contributed to his anemia. This is complicated by his use of therapeutic anticoagulation for a prosthetic heart valve with atrial fibrillation. He came to the ED last night with chest, neck and arm pain (which seems consistent with angina resulting from his anemia). His hgb was 5.3 and he was transfused PRBC and his symptoms have resolved. His stool is heme positive and I was consulted for endoscopy. Review of Systems Constitutional Constitutional: Reports fatigue, Reports lethargy and Reports weakness Gastrointestinal Gastrointestinal: Denies abdominal pain, Denies hematochezia, Denies heartburn, Denies diarrhea and Denies vomiting Neurologic Neurologic: Reports weakness Endocrine Endocrine: Reports fatigue PFSH All Active Problems DNR (do not resuscitate) (Acute) Not sure about intubation, +treat, +transfer, +abx, +IV fluids Advanced care planning/counseling discussion (Acute) Palliative care encounter (Acute) GI bleed (Chronic) Atrial flutter with rapid ventricular response (Acute) Anemia (Chronic) Atrial fibrillation (Chronic) Atrial flutter (Acute) Chronic anticoagulation (Chronic) Myelodysplastic syndrome (Acute) Anemia (Chronic) Encounter for blood transfusion (Acute) Anemia (Chronic) 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) Diverticulosis of colon without diverticulitis (Chronic) Acute blood loss anemia (Acute) Upper GI bleed (Acute) Anemia (Chronic) 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 ear (Acute) Sensorineural hearing loss (SNHL) of right ear with restricted hearing of left ear (Acute) Sensorineural hearing loss of combined sites, bilateral (Acute 08/03/16) Medical History Prosthetic cardiac valve vegetation Intracranial hemorrhage Discharge planning issues diverticulosis adenoma colon polyp Prosthetic Aortic Valve Overweight Hearing loss bilat Surgical History H/O prosthetic aortic valve replacement redo of aortic valve hernia/hydrocele repair Appendectomy Aortic valve replaced Social History Smoking/Tobacco Use Status: Current-Occasional Smoking risk assessment performed?: Yes Alcohol Intake: current Alcohol Intake frequency: holidays/special occasions only Alcohol type: wine Drug use: Never Substance use type: does not use Housing: house Do you feel safe at home: Yes Do you feel safe in your relationship?: Yes Exam GI Inspection: normal to inspection and non-distended Palpation: soft and no guarding Results Last Vital Signs Temp 98.2 F 11/29/23 08:00 Pulse 67 11/29/23 13:57 Resp 17 11/29/23 14:01 BP 114/61 11/29/23 13:57 Pulse Ox 98 11/29/23 06:30 Labs 11/29/23 15:55 11/28/23 22:56 Labs: Laboratory Results - last 24 hr 11/28/23 11/28/23 11/29/23 22:56 23:50 00:20 WBC 4.21 L RBC 1.82 L Hgb 5.3 L* D Hct 18.2 L* MCV 100 H D MCH 29.1 MCHC 29.1 L RDW 19.8 H Plt Count 130 D MPV 10.6 Immature Gran % 0.0 Neutrophils % 59.0 Lymphocytes % 36.0 Monocytes % 5.0 Eosinophils % 0.0 Basophils % 0.0 Nucleated RBC % 2.0 H Absolute Neutrophils 2.48 Absolute Lymphocytes 1.52 Absolute Monocytes 0.21 Absolute Eosinophils 0.00 Absolute Basophils 0.00 RBC Morphology See Below Polychromasia Present Hypochromasia 2+ Poikilocytosis 1+ Anisocytosis 1+ Macrocytosis 1+ PT 31.2 H INR 3.5 H APTT 25.2 Sodium 140 Potassium 4.8 Chloride 110 H Carbon Dioxide 22.7 Anion Gap 7.3 BUN 55 H Creatinine 1.6 H Est GFR (CKD-EPI 2020) 41.96 Glucose 145 H Calcium 8.8 Total Bilirubin 0.89 AST 23 ALT 13 L Alkaline Phosphatase 60 Troponin I 19 24 NT-Pro-B Natriuret Pep 1391 H Total Protein 5.3 L Albumin 2.6 L Procalcitonin 0.1 TSH 4.88 H Free T4 1.10 Urine Color Urine Clarity Urine pH Ur Specific Thurman Urine Protein Urine Ketones Urine Blood Urine Nitrite Urine Bilirubin Urine Urobilinogen Ur Leukocyte Esterase Urine Glucose ABO/Rh B Positive Antibody Screen NEGATIVE Crossmatch See Detail 11/29/23 11/29/23 11/29/23 01:35 02:35 07:57 WBC RBC Hgb 8.3 L D Hct 26.6 L MCV MCH MCHC RDW Plt Count MPV Immature Gran % Neutrophils % Lymphocytes % Monocytes % Eosinophils % Basophils % Nucleated RBC % Absolute Neutrophils Absolute Lymphocytes Absolute Monocytes Absolute Eosinophils Absolute Basophils RBC Morphology Polychromasia Hypochromasia Poikilocytosis Anisocytosis Macrocytosis PT 27.8 H INR 3.0 H APTT Sodium Potassium Chloride Carbon Dioxide Anion Gap BUN Creatinine Est GFR (CKD-EPI 2020) Glucose Calcium Total Bilirubin AST ALT Alkaline Phosphatase Troponin I 33 NT-Pro-B Natriuret Pep Total Protein Albumin Procalcitonin TSH Free T4 Urine Color Yellow Urine Clarity Clear Urine pH 5.5 Ur Specific Thurman 1.020 Urine Protein Negative Urine Ketones Negative Urine Blood Negative Urine Nitrite Negative Urine Bilirubin Negative Urine Urobilinogen 1.0 H Ur Leukocyte Esterase Negative Urine Glucose Negative ABO/Rh Antibody Screen Crossmatch
[2023-11-29 16:30] LABS: HCT 21.1 % (40.0-50.0)
[2023-11-29 16:32] LABS: HGB 6.8 g/dL (13.5-17.5)
[2023-11-30] VITALS (34 sets, daily range): BP systolic 85–119; BP diastolic 58–82; PULSE 73–124; RESP 14–25; TEMP 36.8–37.3; O2SAT 94–100
--- NOTE | 2023-11-30 | DI.NM_ITS ---
Exam(s) NM GI BLEED TAGGED RBC GRP CLINICAL HISTORY: myleodysplasia and continued bleeding/-capsule end. COMPARISON: No exams were available for comparison EXAMINATION: Dose: 7 millicuries technetium 99-sulfur colloid Images: Obtain immediately for 1 minute followed by dynamic for 1 hour FINDINGS: Immediate flow phase reveals no active extravasation into the gut lumen Images obtained to 1 hour also show no evidence of active bleeding in the gut. We reimaged this patient at 4 hours post injection and this also did not reveal evidence of active GI tract bleeding. IMPRESSION: 1. Negative for active GI bleeding. 2. Please note that if clinically indicated this patient can be brought back down to the radiology de partment for reimaging tomorrow morning to determine if there has been intermittent bleeding since ob taining these negative images.
--- NOTE | 2023-11-30 | DI.US_ITS ---
APPROVED REPORT EXAM: Comprehensive 2D, Doppler, and color-flow Echocardiogram Patient Location: In-Patient Room/Bed: [id number] Assistant Manager Bilingual: Tamia Jane RDCS (AE) Indications: Mechanical valve w vegetation, s/p TX for endocarditis Other Information Study Quality: Fair. Technically limited study due to body habitus, inability to position patient exa m done bediside icu. Conclusion Study quality is fair Normal left ventricular wall thickness and chamber size. Ejection fraction is estimated visually at 55 to 60%. No segmental wall motion abnormalities are appreciated Right ventricle appears normal in size and function Both atria are mildly enlarged There is a mechanical aortic valve prosthesis. Mean gradient is 17 mmHg. There is a small mobile ma ss, approximately 1 cm which flips into the aorta with systole, back into the heart in diastole. The re is trace central regurgitation Mitral annular calcification. Thickened mitral leaflets. Moderate mitral regurgitation Moderate to severe tricuspid regurgitation Estimated right ventricular systolic pressure is 46 mmHg Wall motion Left Ventricle Technically limited parasternal imaging. The overall left ventricular systolic function appears jae l. Regional wall motion is not well visualized but grossly normal. There is no ventricular septal def ect visualized. LVEF is 55%. Right Ventricle Right ventricle is grossly normal in size. Right ventricular systolic function is grossly normal. Atria Left atrium is mildly dilated. Right atrium is mildly dilated. The interatrial septum is intact with no evidence for an atrial septal defect. Aortic Valve There is no aortic valvular stenosis. Trace aortic regurgitation. Mechanical aortic valve is present. Mitral Valve Moderate mitral annular calcification. Mitral valve leaflets are mildly thickened. No evidence of elida ral valve stenosis. Moderate mitral regurgitation. Tricuspid Valve The tricuspid valve is normal in structure. There is no tricuspid valve stenosis. Moderate to severe tricuspid regurgitation. The RVSP is 45.9mmHg. Pulmonic Valve Pulmonic valve is not well visualized. There is no pulmonic valvular stenosis. There is no pulmonic v alvular regurgitation. Great Vessels The aortic root is normal in size. The ascending aorta is mildly dilated. Aortic arch is not well vis ualized. The IVC collapses <50% with normal respiration. Pericardium There is no pericardial effusion. 2D Dimensions Ao Root d 3.31 cm M: 3.1 - 3.7 Ao Asc Diam d 4.08 cm M: 2.6 - 3.4 Auto EF LV EDV A4C 93.0 mL LV EDV A2C 115.4 mL LV EDV BP 102.9 mL LV ESV A4C 41.4 mL LV ESV A2C 52.3 mL LV ESV BP 46.3 mL LVEF(%) A4C 55.5 % LVEF(%) A2C 54.6 % LVEF(%) BP 55.0 % LV SV A4C 51.7 ml LV SV A2C 63.0 ml LV SV BP 56.6 ml LV CO A4C 4.7 L/min LV CO A2C 5.7 L/min LV CO BP 5.2 L/min HR A4C 90.92 BPM HR A2C 90.68 BPM LV EDV Index (BP) LA Volume LA Length A4C 5.6 cm LA Length A2C 6.0 cm LA Area A4C s 21.31 cm2 LA Area A2C s 17.86 cm2 LA Vol A4C A-L 69.20 mL LA Vol A2C A-L 44.91 mL LA Vol Biplane A-L 58.0 mL LA Vol/BSA A4C A-L LA Vol/BSA A2C A-L LA Vol/BSA BP A-L 29.3 mL/m2 LA Vol A4C MOD 62.3 mL LA Vol A2C MOD 42.3 mL LA Vol BP MOD 53.1 mL RA Volume RA Area A4C 16.9 cm2 RA ESV A4C (A-L) 50.4mL RA Vol/BSA A4C A-L RA Length A4C 4.8 cm RA ESV A4C (MOD) 47.4mL LV Diastology MV E' medial 0.108 (>0.07 m/s) MV E Vmax 1.42 (0.4-1.3 m/s) Aortic Valve AoV Vmax 2.67 m/s LVOT Vmax 1.51 m/s AoV Peak Grad 28.6 mmHg LVOT Peak Grad 9.1 mmHg AoV Area (Vmax) 2.03 cm2 LVOT VTI 0.296 m AoV VTI 0.539 m LVOT Mean Grad 6.5 mmHg AoV Mean Wil. 1.99 m/s LVOT SV 106.44 mL AoV Mean Grad 17.7 mmHg LVOT Diam s 2.10 cm AoV Area (VTI) 1.98 cm2 AV Regurg Peak Gr. 28.58 mmHg Velocity Ratio 0.57 Mitral Valve MV Vmax TIPS 1.61 m/s MV Mean Grad 3.9 (<2mmHg) MV Area PHT 3.31 cm2 MV VTI 0.368 m Pulmonary Valve PV Vmax 0.76 (0.5-1.5 m/s) RVOT Vmax 0.47 m/s PV Peak Grad 2.3 mmHg RVOT Peak Gr. 0.9 mmHg PV Mean Wil 0.55 m/s RVOT VTI 0.081 m PV Mean Grad 1.3 mmHg RVOT Mean Gr. 0.6 mmHg Tricuspid Valve RA Pressure 8.00 mmHg TR Vmax 3.08 m/s TV S' 0.09 m/s TR Peak Grad 37.9 mmHg RVSP (TR) 45.9 mmHg
[2023-11-30 07:18] LABS: HCT 24.9 % (40.0-50.0); MCH 29.6 pg (27.0-33.0); MPV 10.4 fL (8.0-11.0); RDW 17.7 % (11.8-14.1); RDW-SD 55.8 fL
[2023-11-30 07:32] LABS: INR 3.1 (0.9-1.1)
[2023-11-30 07:46] LABS: BUN 53 mg/dL (7-18); CREATININE 1.4 mg/dL (0.70-1.30); Calcium 8.3 mg/dL (8.5-10.1); Chloride 111 mmol/L (98-107); Estimated GFR 49.25 (mL/min/1.73m2); Glucose 117 mg/dL (74-106); Potassium 3.9 mmol/L (3.5-5.1); Sodium 141 mmol/L (136-145)
[2023-11-30 08:03] LABS: MCHC 32.1 % (32.0-36.0); MCV 92 fL (80-95)
[2023-11-30 08:04] LABS: Platelet Count 85 10^3/uL (130-400)
[2023-11-30] MEDS: Metoprolol CR 100 MG TABCR PO (08:32)
[2023-11-30] MEDS: Pantoprazole 40 MG TABCR PO ×2 (08:32→19:17)
[2023-11-30] MEDS: Metoprolol CR 50 MG TABCR PO (09:43)
[2023-11-30] MEDS: Sucralfate 1 GM TAB PO ×3 (11:27→22:04)
[2023-11-30 12:38] LABS: HCT 24.3 % (40.0-50.0); HGB 7.8 g/dL (13.5-17.5)
--- NOTE | 2023-11-30 13:19 | PDOC.CMPRO ---
Date of service: 11/30/23 Time of Service: 13:19 Care Management Progress Note Progress Note Text Progress Note Text: Abrahan was sitting up on the side of the bed visiting with his family when CM met with him. He appeared to be in better spirits and joked with CM about being in the hospital. Abrahan's Hgb dropped again yesterday requiring 2 more units of blood. Today his Hgb is 7.8, down a bit from 8.0 where it was right after the transfusions. Abrahan had an Echocardiogram today and is scheduled for a bleeding scan this afternoon. Abrahan's family continues to spend time with him and are very supportive and involved in his care. Discharge Potential Discharge Needs: PCP F/U Appt and Other (Cardiology) Anticipated Barriers to Discharge: Medical Status Patient/Family Education Needs: Review discharge instructions, discuss Ask Me Three Transportation: Private vehicle Plan: Anticipate Umesh will be discharged home when medically cleared with no new services. He will follow up with his PCP and plan of care and transport with family. CM will follow and continue to support discharge needs. SDOH(Care Management) Screening Will the Patient Participate in the Screening?: Yes Do you worry about having a steady place to live?: no In the past 12 months, have you had to go without electric, gas, oil or water in your home?: no Have you or anyone in your house had to go without enough food to eat?: no Has lack of transportation kept you from medical appointments or from doing things needed for daily living?: no Has anyone in your support network made you feel unsafe for any reason?: no Health Related Social Needs Health related social needs details: denied problems
[2023-11-30 18:34] LABS: HCT 25.8 % (40.0-50.0); HGB 8.1 g/dL (13.5-17.5)
--- NOTE | 2023-11-30 18:43 | W.PM.PROGNOT ---
Date of Service Date of service: 11/30/23 Time of Service: 18:43 Assessment and Plan Assessment and plan (1) Atrial flutter with rapid ventricular response: Status: Acute Assessment and plan: Triggered by profound anemia, now rate better controlled back on his home metoprolol after transfusion after getting diltiazem in ED and some additional metoprolol in tartrate form overnight the first night, but it was a little high still 11/29 AM, so I increased metoprolol succinate to 150mg/day. (2) Anemia: Status: Chronic Assessment and plan: This is chronic and associated with GI blood loss as well as myelodysplasia. GI notes from [facility] reviewed. He had an EGD/[place] in July which did show bleeding in duodenum. EGD along with capsule endoscopy of small bowel at [facility] 09/21/23, this time without finding a source for bleeding. Following with Heme/Onc and getting aranesp and iron Has been getting weekly transfusions on Wednesday, but in the past week was transfused Wednesday and then admitted Wednesday night with profound anemia again. bleeding scan not revealing 11/29 We discussed we may need to run the INR lower, understanding the risk of clot. We agreed to hold the warfarin until h/h stabilizes. -Follow h/h, watch stool for blood -Palliative care also consulted, appreciate their input. -I called [facility] transfer center for heme/onc consult, they agree with our approach at this point of a lower INR level, with coordination with cardiolology. 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 Unfortanately, there is still something on the valve. I doubt ongoing infection as blood cultures 11/27 NGTD, will get another set with morning labs. Will touch base with cardiology. (4) H/O mechanical aortic valve replacement: Status: Chronic Assessment and plan: Has been on warfarin with goal INR 2.5-3.5 despite ICH 07/28 (was held for 2 weeks then) and current tranfusion-dependant anemia. INR 3.5 on admission, still 3.1 today. Holding for now. See above. (5) Myelodysplastic syndrome: Status: Acute Assessment and plan: heme/onc notes from [facility] reviewed. Case reviewed with heme/onc fellow. Bernice due 11/30. Subjective Subjective Patient reports: tolerating a regular diet and voiding w/o difficulty; denies diarrhea, vomiting, shortness of breath or fever Interval history since last seen: Feeling okay this morning. Hasn't had BM, but no bleeding noted. No abdominal or chest pain, no SOB. He does feel tired. Exam Narrative Exam Narrative: GEN: Alert and oriented, sitting in chair, no acute distress. HEENT: MMM, anicteric; neck supple, JVP not elevated. ; lungs clear; heart regular with systolic murmur and mechanical S2; abdomen soft and NT; extremities wihtout edema, warm. Objective Last Vital Signs Temp 37.3 C 11/30/23 11:30 Pulse 84 11/30/23 18:01 Resp 22 11/30/23 18:02 BP 103/77 11/30/23 18:01 Pulse Ox 98 11/30/23 18:02 Laboratory Results - last 24 hr 11/28/23 11/30/23 11/30/23 23:50 05:55 12:13 WBC 3.80 L RBC 2.70 L Hgb 8.0 L 7.8 L Hct 24.9 L 24.3 L MCV 92 D MCH 29.6 MCHC 32.1 D RDW 17.7 H Plt Count 85 L MPV 10.4 PT 28.0 H INR 3.1 H Sodium 141 Potassium 3.9 Chloride 111 H Carbon Dioxide 24.0 Anion Gap 6.0 BUN 53 H Creatinine 1.4 H Est GFR (CKD-EPI 2020) 49.25 Glucose 117 H Calcium 8.3 L ABO/Rh B Positive Antibody Screen NEGATIVE Crossmatch See Detail 11/30/23 18:20 WBC RBC Hgb 8.1 L Hct 25.8 L MCV MCH MCHC RDW Plt Count MPV PT INR Sodium Potassium Chloride Carbon Dioxide Anion Gap BUN Creatinine Est GFR (CKD-EPI 2020) Glucose Calcium ABO/Rh Antibody Screen Crossmatch Time Spent with Patient Time Spent with Patient: >50 minutes Time was spent: preparing to see the patient(eg.review tests), obtaining and/or reviewing separately otained hiistory, ordering medications,tests, procedures, referring, communicating with other health rn urgent care, indepentently interpreting results, counseling the patient and care coordination
[2023-11-30] MEDS: Normal Saline Flush 10 ML SYR IVP (19:17)
--- NOTE | 2023-11-30 19:36 | W.PM.PROGNOT ---
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 He has A-fib as well as mechanical heart valve. He also has an unknown source of continued GI blood loss. With these 3 problems, our only option is to continue to give him blood products. He has at risk for developing atypical antibodies with the amount of blood that he is requiring. He is 83 years old. He has been seen by palliative care. The question becomes what is our goal and our endpoint at this time, which is something that palliative care will need to address Again at this point there is not much more general surgery can do. He is going to continue to bleed and to continue to require massive transitions to sustain life especially while he is on Coumadin, Will follow peripherally Subjective Subjective Interval history since last seen: Patient received 4 units of blood last night and is going to receive another unit of blood today. Patient has a history of myelodysplastic disorder. He also has mechanical heart valve and A-fib and is on chronic anticoagulation with Coumadin for this. He had a bleeding scan today which showed no active bleeding. He has not had a bowel movement in 48 hours. 48 hours ago he was having black tarry stools. He has no abdominal pain at this time. Patient has had multiple EGDs at [facility] and [facility], as well as capsule endoscopy without a source for the bleeding to be localized to. He continues to have persistent bleeding. Exam Narrative Exam Narrative: Abdomen is soft and nontender with good bowel sounds. He denies any chest pain or shortness of breath. He admits to coughing up clear mucus He denies any pain or difficulty urinating. He has not had a bowel movement today Const Other: Patient is awake and orientated. He is conversational and pleasant and in no distress Abdomen is soft and nontender. Objective Last Vital Signs Temp 36.8 C 11/30/23 19:27 Pulse 84 11/30/23 19:06 Resp 24 11/30/23 19:06 BP 97/81 L 11/30/23 19:06 Pulse Ox 98 11/30/23 18:02 Laboratory Results - last 24 hr 11/28/23 11/30/23 11/30/23 23:50 05:55 12:13 WBC 3.80 L RBC 2.70 L Hgb 8.0 L 7.8 L Hct 24.9 L 24.3 L MCV 92 D MCH 29.6 MCHC 32.1 D RDW 17.7 H Plt Count 85 L MPV 10.4 PT 28.0 H INR 3.1 H Sodium 141 Potassium 3.9 Chloride 111 H Carbon Dioxide 24.0 Anion Gap 6.0 BUN 53 H Creatinine 1.4 H Est GFR (CKD-EPI 2020) 49.25 Glucose 117 H Calcium 8.3 L ABO/Rh B Positive Antibody Screen NEGATIVE Crossmatch See Detail 11/30/23 18:20 WBC RBC Hgb 8.1 L Hct 25.8 L MCV MCH MCHC RDW Plt Count MPV PT INR Sodium Potassium Chloride Carbon Dioxide Anion Gap BUN Creatinine Est GFR (CKD-EPI 2020) Glucose Calcium ABO/Rh Antibody Screen Crossmatch Time Spent with Patient Time Spent with Patient: 35-49 minutes Time was spent: preparing to see the patient(eg.review tests), obtaining and/or reviewing separately otained hiistory, ordering medications,tests, procedures, referring, communicating with other health home care scheduler, indepentently interpreting results, counseling the patient, care coordination and other
[2023-12-01] VITALS (13 sets, daily range): BP systolic 97–117; BP diastolic 61–77; PULSE 89–98; RESP 2–20; TEMP 36.1–36.8; O2SAT 97–99
--- NOTE | 2023-12-01 05:46 | W.PC.ACHO ---
Registration Status: Primary Language: Preferred Language: ED Information & Data Chief Complaint Chest Pain 11/29/23 01:33 Chief Complaint Chest Pain 11/28/23 22:52 Triage Note increased weakness with 11/28/23 22:41 chest shoulder and teeth pain, history of low hemoglobin, having trouble all day today Medical / Surgical History (Last Reviewed 11/29/23 @ 19:11 by Harlan Sparrow MD) Prosthetic cardiac valve vegetation Intracranial hemorrhage Discharge planning issues diverticulosis adenoma colon polyp Prosthetic Aortic Valve Overweight Hearing loss (Last Reviewed 11/29/23 @ 19:11 by Harlan Sparrow MD) H/O prosthetic aortic valve replacement redo of aortic valve hernia/hydrocele repair Appendectomy Aortic valve replaced Most Recent Vital Signs Temperature 36.8 C 11/30/23 19:27 Temperature Source Temporal Artery Scan 11/30/23 19:27 Pulse 84 11/30/23 19:06 Pulse 94 H 11/30/23 19:06 Respiratory Rate 24 11/30/23 19:06 Respiratory Effort Normal, Non-Labored 11/29/23 03:00 Respiratory Depth Normal 11/29/23 03:00 Respiratory Pattern Normal 11/29/23 03:00 Blood Pressure 97/81 L 11/30/23 19:06 Blood Pressure Mean 88 11/30/23 19:06 Blood Pressure Position Supine 11/29/23 03:00 Pulse Oximetry 98 11/30/23 18:02 Oxygen Delivery Method Room Air 11/30/23 19:27 Oxygen Flow Rate 0 11/30/23 19:27 Pain Level 0 11/30/23 21:45 Comment worse with movement 11/28/23 22:41 Allergies PEACH SKINS Adverse Reaction (Uncoded 11/28/23 23:28) Other (See Comment) MAKES MOUTH PUCKER Precautions Isolation Standard precaution 11/29/23 01:33 Active Medications Generic Name Dose Route Start Last Admin Trade Name Freq PRN Reason Stop Dose Admin Ferrous Sulfate 325 mg 11/29/23 08:30 11/29/23 08:05 Ferrous Sulfate 325 Mg Tab PO 325 mg Q48H LIANET Administration Pantoprazole Sodium 40 mg 11/30/23 20:00 11/30/23 19:17 Pantoprazole 40 Mg Tabcr PO 40 mg BID@0730,2000 LIANET Administration Sodium Chloride 0 ml 11/30/23 12:24 11/30/23 19:17 Normal Saline Flush 10 Ml Syr IVP 10 ml PRN PRN Administration Sucralfate 1 gm 11/30/23 11:30 11/30/23 22:04 Sucralfate 1 Gm Tab PO 1 gm AC & HS LIANET Administration IV IV Catheter Type [r ac] Saline Lock IV Catheter Gauge [r ac] 18 Diagnostics 12/01/23 11/30/23 11/30/23 Range/Units 05:35 18:20 12:13 WBC Pending (4.4-10.8) 10^3/uL RBC Pending (4.36-5.78) 10^6/uL Hgb Pending 8.1 L 7.8 L (13.5-17.5) g/dL Hct Pending 25.8 L 24.3 L (40.0-50.0) % MCV Pending (80-95) fL MCH Pending (27.0-33.0) pg MCHC Pending (32.0-36.0) % RDW Pending (11.8-14.1) % Plt Count Pending (130-400) 10^3/uL MPV Pending (8.0-11.0) fL PT Pending (9.1-11.1) sec INR Pending (0.9-1.1) Sodium (136-145) mmol/L Potassium (3.5-5.1) mmol/L Chloride (98-107) mmol/L Carbon Dioxide (21.0-32.0) mmol/L Anion Gap (3-11) mmol/L BUN (7-18) mg/dL Creatinine (0.70-1.30) mg/dL Est GFR (CKD-EPI 2020) (mL/min/1.73m2) Glucose (74-106) mg/dL Calcium (8.5-10.1) mg/dL 11/30/23 Range/Units 05:55 WBC 3.80 L (4.4-10.8) 10^3/uL RBC 2.70 L (4.36-5.78) 10^6/uL Hgb 8.0 L (13.5-17.5) g/dL Hct 24.9 L (40.0-50.0) % MCV 92 D (80-95) fL MCH 29.6 (27.0-33.0) pg MCHC 32.1 D (32.0-36.0) % RDW 17.7 H (11.8-14.1) % Plt Count 85 L (130-400) 10^3/uL MPV 10.4 (8.0-11.0) fL PT 28.0 H (9.1-11.1) sec INR 3.1 H (0.9-1.1) Sodium 141 (136-145) mmol/L Potassium 3.9 (3.5-5.1) mmol/L Chloride 111 H (98-107) mmol/L Carbon Dioxide 24.0 (21.0-32.0) mmol/L Anion Gap 6.0 (3-11) mmol/L BUN 53 H (7-18) mg/dL Creatinine 1.4 H (0.70-1.30) mg/dL Est GFR (CKD-EPI 2020) 49.25 (mL/min/1.73m2) Glucose 117 H (74-106) mg/dL Calcium 8.3 L (8.5-10.1) mg/dL 11/28/23 23:15 Blood Culture - Preliminary Blood NO GROWTH 48 HOURS 11/28/23 23:10 Blood Culture - Preliminary Blood NO GROWTH 48 HOURS 12/01/23 05:35 Blood Culture - Pending Blood 12/01/23 05:35 Blood Culture - Pending Blood Intake and Output - 24 Hour Total 11/28/23 22:33 thru 12/01/23 05:38 Intake Total 3171 Output Total 4375 Balance -1204 Weight 83.1 kg Intake: IV 10 Oral 1660 Blood Product 1501 Rbc Leuko Reduced Unit 400 [id number] Rbc Leuko Reduced Unit 350 [id number] Rbc Leuko Reduced Unit 401 [id number] Rbc Leuko Reduced Unit 350 [id number] Output: Urine 4375 Other: Urine Color Light Marcie Urine Appearance Clear Urine Odor Normal Comment ? for incontinence, pt denies needing phan care or change of clothing but there is a strong smell of urine in his room Voiding Methods Urinal Falls Risk Assessment History of Falls No History 11/29/23 03:00 Contributing Factors Unstable 11/29/23 03:00 Ambulatory Aids Independent 11/29/23 03:00 Tubes/Lines With any additional score 11/29/23 03:00 Gait Evaluation No gait disturbance 11/29/23 03:00 Cognition No cognitive impairment 11/29/23 03:00 Fall Total Score 23 11/29/23 03:00 Level of Risk Standard/Low Risk 11/29/23 03:00 Problems (Last Reviewed 11/29/23 @ 19:11 by Harlan Sparrow MD) DNR (do not resuscitate) (Acute) Advanced care planning/counseling discussion (Acute) Palliative care encounter (Acute) GI bleed (Chronic) Atrial flutter with rapid ventricular response (Acute) Anemia (Chronic) Atrial fibrillation (Chronic) Atrial flutter (Acute) Chronic anticoagulation (Chronic) Myelodysplastic syndrome (Acute) 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 Information / Comments:Independent, [place] - [facility] hearing aid, likely d/c 11/30 - gets infusion on Wednesdays and needs to stop at [facility] infusion center - coordinate so after d/c pt can go over. Report received from: Kaylee LAZO RN
[2023-12-01] MEDS: Sucralfate 1 GM TAB PO ×3 (07:11→16:14)
[2023-12-01] MEDS: Pantoprazole 40 MG TABCR PO (07:11)
[2023-12-01] MEDS: Ferrous Sulfate 325 MG TAB PO (07:11)
[2023-12-01 07:18] LABS: HCT 23.1 % (40.0-50.0); HGB 7.1 g/dL (13.5-17.5); MCH 29.5 pg (27.0-33.0); MCHC 30.7 % (32.0-36.0); MCV 96 fL (80-95); RBC 2.41 10^6/uL (4.36-5.78); RDW-SD 59.2 fL
[2023-12-01 07:24] LABS: INR 2.4 (0.9-1.1); Prothrombin Time 22.2 sec (9.1-11.1)
[2023-12-01 07:51] LABS: Platelet Count 97 10^3/uL (130-400)
[2023-12-01 07:53] LABS: RDW 18.5 % (11.8-14.1)
[2023-12-01] MEDS: Metoprolol CR 50 MG TABCR 150 MG PO (07:58)
--- NOTE | 2023-12-01 09:55 | PDOC.CMPRO ---
Care Management Progress Note Discharge Potential Discharge Needs: PCP F/U Appt Anticipated Barriers to Discharge: Medical Status Patient/Family Education Needs: Review discharge instructions, discuss Ask Me Three Transportation: Private vehicle Plan: Anticipate Umesh will be discharged home when medically cleared with no new services. He will follow up with his PCP and plan of care and transport with family. CM will follow and continue to support discharge needs. SDOH(Care Management) Screening Will the Patient Participate in the Screening?: Yes Do you worry about having a steady place to live?: no In the past 12 months, have you had to go without electric, gas, oil or water in your home?: no Have you or anyone in your house had to go without enough food to eat?: no Has lack of transportation kept you from medical appointments or from doing things needed for daily living?: no Has anyone in your support network made you feel unsafe for any reason?: no Health Related Social Needs Health related social needs details: denied problems
[2023-12-01] MEDS: Darbepoetin 300 MCG SYR SC (10:08)
--- NOTE | 2023-12-01 14:44 | W.PM.DS.N ---
Date of service: 12/01/23 Time of Service: 14:44 DS: Diagnosis Discharge Diagnosis (1) Atrial flutter with rapid ventricular response: Status: Acute (2) Anemia: Status: Chronic (3) Prosthetic cardiac valve vegetation: (4) H/O mechanical aortic valve replacement: Status: Chronic (5) Myelodysplastic syndrome: Status: Acute Discharge Plan Disposition Patient Disposition: Home Condition: Fair Discharge Details Reason For Visit: AF/RVR, GI bleed Admit Date/Time: 11/29/23 01:37 Admit Provider: Kian Valverde Attending Provider: Kian Valverde Primary Care Provider: Rafiq [place] Hospital Course Hospital Course: 83 yo M with h/o mechanical aortic valve replacement on warfarin since 1988, recent UGI bleed 07/2023, 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 He has been transfusion dependant and needing increased frequency of transfusions for 2-3 weeks before admission. On the week of admission, he had a routine transfusion 4 days prior to admission 11/23 when hgb was 5.1, then again in ED 11/24 when hgb 6.9, then admitted 11/27 with hgb 5.3. He has not noted blood in his stool but bedside hemoccult positive in ED. His INR was 4.3 on 11/23, 3.5 on 11/27 at his admission. On presentation 11/27 he had diffuse chest, neck, and arm pain and malaise. This all resolved after tranfusion of 2 units RBCs. Warfarin was held. Hgb increased to 8.3 on 11/28 AM, but was 6.8 in the afternoon so was transfused an additional 2 units on 11/28 evening. Hgb was 7.8 on 11/29, down to 7.1 again with a black stool overnight, so was given 2 more units before discharge 11/30. On presentation he was in atrial fibrillation with RVR. He was given one diltiazem bolus and additional metoprolol boluses IV that first night. He felt better with pulses around 100-110s back on his home metoprolol XL 100mg. This was increased to 150mg for better rate control. Echocardiogram was repeated, which showed persistent vegetation on the aortic valve. I talked to [facility] Cardiology 11/30 and they felt that without signs of infection this is a sterile vegetation and does not affect management. INR slowly drifted down off warfarin. After discussion with patient and his daughter, we decided to stop warfarin for a period of time, at least a week. Vitamin K was not given. Understanding the risks ongoing bleeding and the risks of stroke, we decided to see if he needs less transfusions at a lower INR. His INR was 2.4 on day of discharge. Case was reviewed with [facility] heme/onc fellow. Given previous bleed was duodenal and he had black stool, his PPI was increased and he was given a month of carafate. Surgery did not recommend repeating endoscopy. A bleeding scan was done on 11/29 to 11/30 and did not detect active bleeding. His daughter noted some slight diminished mental status from his baseline, but he had no focal neurologic deficits or other symptoms of stroke. He was given the option of staying, but preferred to discharge with outpatient follow up. Plan is repeat hemoglobin and INR in 2 days 12/02, transfuse as outpatient if hgb <8. He agrees that if he gets symptoms he will go to the ED. He was seen by Palliative care and discussed goals of care. Dr. Finch recommended interdisciplinary discussion at some point. Home Meds and New Rx's Prescriptions: New sucralfate 1 gram Tablet 1 g PO AC & HS Qty: 120 0RF Continued ferrous sulfate [iron] 325 mg (65 mg iron) tablet 325 mg PO .every other Patient Comments: patient takes every other day Changed metoprolol succinate 100 mg tablet extended release 24 hr 150 mg PO DAILY Qty: 30 0RF pantoprazole 40 mg tablet,delayed release (DR/EC) 40 mg PO BID Qty: 180 0RF Discontinued warfarin 5 mg tablet 5 mg PO Q OTHER DAY Rx Instructions: M//F 7mg Mcnulty/T// 5mg warfarin 2 mg tablet 2 mg PO DAILY Discharge Instructions Instructions: Gastrointestinal Bleeding (DC) Additional Instructions: You should stop your warfarin for now. You should come to [facility] lab on Wednesday12/04/23. After your labs, wait in the waiting room or in the infusion area until you are told you don't need blood. If you need blood, you will get it in the infusion area. If you get chest pain like before you come in, go to the emergency room. we increased your metoprolol to 150mg (1 1/2 tablets) to take stress off of your heart. We increased the pantoprazole to twice a day and prescribed carafate (a chalky medication to coat your stomach). This can help heal ulcers you may have that are bleeding. Activity:: Activity as Tolerated Equipment/Supplies:: No Equipment Needed Diet:: As Tolerated Discharge Orders Discharge Orders: Discharge Order (Routine); Ordered 12/01/23 Ordered By: Johnathan Miles Other Ambulatory Orders: Complete Blood Count w/Diff (Routine) Timeframe: 3 Days Facility: [facility] - Location: Laboratory Outpatient - [facility] Ordered By: Johnathan Miles Prothrombin Time (Routine) Timeframe: 3 Days Facility: [facility] - Location: Laboratory Outpatient - [facility] Ordered By: Johnathan Miles DS: Summary Time Spent with Patient providing and/or coordinating discharge services: Greater than 30 minutes Status at Discharge Functional status at discharge: independent ambulation Overall status at discharge: patient is back to baseline Mental Status: mental status grossly normal Speech and Movement: speech and movement normal Mood: congruent mood Affect: normal affect Quality:SDOH Health Related Social Needs: Health related social needs details denied problems Health related social needs details: denied problems Exam Narrative Exam Narrative: GEN: Alert and oriented, sitting in chair, no acute distress. HEENT: MMM, anicteric; neck supple, JVP not elevated. ; lungs clear; heart regular with systolic murmur and mechanical S2; abdomen soft and NT; extremities wihtout edema, warm. Neuro: CN 2-12 intact, no pronator drift, nl movement and gross sensation 4 extremities. Psych Mental Status: mental status grossly normal Speech and Movement: speech and movement normal Mood: congruent mood Affect: normal affect DS: Data Vitals/I&O Vitals and I&O: Vital Signs Temperature 36.5 C 12/01/23 14:12 Temperature Source Tympanic 12/01/23 11:08 Pulse 98 H 12/01/23 14:12 Pulse 94 H 11/30/23 19:06 Respiratory Rate 18 12/01/23 14:12 Respiratory Effort Normal, Non-Labored 11/29/23 03:00 Respiratory Depth Normal 11/29/23 03:00 Respiratory Pattern Normal 11/29/23 03:00 Blood Pressure 115/62 12/01/23 14:12 Blood Pressure Mean 88 11/30/23 19:06 Blood Pressure Position Supine 11/29/23 03:00 Pulse Oximetry 97 12/01/23 14:12 Oxygen Delivery Method Room Air 12/01/23 14:12 Oxygen Flow Rate 0 12/01/23 14:12 Pain Level 0 12/01/23 07:38 Comment worse with movement 11/28/23 22:41 Intake & Output 11/30/23 12/01/23 12/01/23 23:59 11:59 23:59 Intake Total 350 / 350 10 360 350 / 360 Output Total 550 / 1400 600 / 600 Balance -200 / -1050 -590 / -240 350 / -240 Intake: IV Oral 340 / 340 Blood Product 300 / 300 Rbc Leuko Reduced Unit 300 / 300 [id number]* Other 50 / 50 Rbc Leuko Reduced Unit 50 / 50 [id number]* Output: Urine 550 / 1400 600 / 600 Other: Urine Color Yellow Yellow Urine Appearance Clear Clear Urine Odor Normal Stool Occult Blood Positive Stool Size Large Stool Characteristics Formed Black Voiding Methods Urinal Urinal Data Completed and Pending Labs on day of discharge: Labs from last 24 hours 12/01/23 11/30/23 11/28/23 06:16 18:20 23:50 WBC 3.80 L RBC 2.41 L Hgb 7.1 L 8.1 L Hct 23.1 L 25.8 L MCV 96 H D MCH 29.5 MCHC 30.7 L RDW 18.5 H Plt Count 97 L MPV 11.0 PT 22.2 H INR 2.4 H ABO/Rh B Positive Antibody Screen NEGATIVE Crossmatch See Detail 12/01/23 06:31 Blood Blood Culture - Pending 12/01/23 06:16 Blood Blood Culture - Pending Preliminary micro results at discharge 12/01/23 06:31 Blood Culture - Pending Blood 12/01/23 06:16 Blood Culture - Pending Blood 11/28/23 23:15 Blood Culture - Preliminary Blood NO GROWTH 48 HOURS 11/28/23 23:10 Blood Culture - Preliminary Blood NO GROWTH 48 HOURS PFSH All Active Problems DNR (do not resuscitate) (Acute) Not sure about intubation, +treat, +transfer, +abx, +IV fluids Advanced care planning/counseling discussion (Acute) Palliative care encounter (Acute) GI bleed (Chronic) Atrial flutter with rapid ventricular response (Acute) Anemia (Chronic) Atrial fibrillation (Chronic) Atrial flutter (Acute) Chronic anticoagulation (Chronic) Myelodysplastic syndrome (Acute) Anemia (Chronic) Encounter for blood transfusion (Acute) Anemia (Chronic) 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) Diverticulosis of colon without diverticulitis (Chronic) Acute blood loss anemia (Acute) Upper GI bleed (Acute) Anemia (Chronic) 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 ear (Acute) Sensorineural hearing loss (SNHL) of right ear with restricted hearing of left ear (Acute) Sensorineural hearing loss of combined sites, bilateral (Acute 08/03/16) Medical History Prosthetic cardiac valve vegetation Intracranial hemorrhage Discharge planning issues diverticulosis adenoma colon polyp Prosthetic Aortic Valve Overweight Hearing loss bilat Surgical History H/O prosthetic aortic valve replacement redo of aortic valve hernia/hydrocele repair Appendectomy Aortic valve replaced Social History Smoking/Tobacco Use Status: Current-Occasional Smoking risk assessment performed?: Yes Alcohol Intake: current Alcohol Intake frequency: holidays/special occasions only Alcohol type: wine Drug use: Never Substance use type: does not use Housing: house Do you feel safe at home: Yes Do you feel safe in your relationship?: Yes Time Spent with Patient Time Spent with Patient: 45-69 minutes Time was spent: preparing to see the patient(eg.review tests), obtaining and/or reviewing separately otained hiistory, ordering medications,tests, procedures, referring, communicating with other health property caretaker, indepentently interpreting results, counseling the patient and care coordination
--- NOTE | 2023-12-01 16:44 | PDOC.CMDIS ---
Date of service: 12/01/23 Time of Service: 16:44 LACE Index Scoring Tool Questions: Length of Stay (in days): 2 Was the patient admitted via the E.D.?: Yes E.D. Visits: 7 Answers: Total Score: 9 Risk of Readmission: Low Risk Care Management Discharge Plan Reason for Hospitalization: anemia Discharge Plan: Umesh will be discharged home with no new services. He will come to the Infusion Center twice a week for blood work, followed by transfusions if needed. His next appointment is Wednesday at 8am. Umesh will follow up with his PCP and plan of care and transport with family. Patient/Family Education Needs: Review discharge instructions, activity, limitations, follow up plan and discuss Ask Me Three SDOH Health Related Social Needs: Health related social needs details denied problems Health related social needs details: denied problems
== END 2023-12-01 16:32 | disposition home or self-care (01) | DRG 812 ==
LOC: ER 11-29 02:23 → ICU 11-29 03:10 → MS 11-30 21:47
PROVIDERS: Family Medicine; Admitting Provider General Practice; Emergency Provider Student in an Organized Health Care Education/Training Program; PCP Family Medicine; Visit Provider General Practice
DX: D62 Acute posthemorrhagic anemia (principal); I48.3 Typical atrial flutter; K92.1 Melena; D68.4 Acquired coagulation factor deficiency; I24.89 Other forms of acute ischemic heart disease; T82.897A Other specified complication of cardiac prosthetic devices, implants and grafts, initial encounter; Z95.2 Presence of prosthetic heart valve; D46.9 Myelodysplastic syndrome, unspecified; Z79.01 Long term (current) use of anticoagulants; Z51.5 Encounter for palliative care; I48.0 Paroxysmal atrial fibrillation; Z66 Do not resuscitate; T45.515A Adverse effect of anticoagulants, initial encounter; K57.30 Diverticulosis of large intestine without perforation or abscess without bleeding; H90.3 Sensorineural hearing loss, bilateral; F17.210 Nicotine dependence, cigarettes, uncomplicated; I25.10 Atherosclerotic heart disease of native coronary artery without angina pectoris; I50.9 Heart failure, unspecified; Y71.2 Prosthetic and other implants, materials and accessory cardiovascular devices associated with adverse incidents
CPT/HCPCS: 00123; 36410; 36415; 36430; 80048; 80053; 84145; 85027; 86850; 86900; 86901; 86920; 87040; 93005; 93306; 96374; 96375; 99221; 99233; 99291; 71045; 78278; 81003; 82272; 83880; 84439; 84443; 84484; 85014; 85018; 85025; 85610; 85730; 93010; 99222; 99239; J0881; J1940; P9016

== ENCOUNTER 2023-12-10 01:33 | Outpatient (RCR) | payer MEDICARE, SELFPAY ==
[2023-11-14 00:34] VITALS: BP 148/95; PULSE 82; RESP 17; TEMP 36.4
[2023-11-17] VITALS (10 sets, daily range): BP systolic 110–135; BP diastolic 70–85; PULSE 98–124; RESP 17–18; TEMP 36.7–37.1; O2SAT 97–100
[2023-11-17] MEDS: Normal Saline Flush 10 ML SYR IVP (08:07)
[2023-11-17 08:20] LABS: Abs Immature Grans 0.07 10^3/uL (0.0-0.06); Absolute Monocyte Count 0.16 10^3/uL (0.1-0.8); Absolute Neutrophil Count 1.35 10^3/uL (1.2-6.7); HCT 21.2 % (40.0-50.0); Immature Grans % 2.7 %; Lymphocytes % 38.8 %; MCHC 28.8 % (32.0-36.0); MCV 97 fL (80-95); MPV 10.5 fL (8.0-11.0); Monocytes % 6.2 %; Neutrophils % 52.3 %; Nucleated RBC 2.3 % (0.0-0.3); Platelet Count 119 10^3/uL (130-400); RBC 2.18 10^6/uL (4.36-5.78); RDW 18.5 % (11.8-14.1); RDW-SD 63.7 fL; WBC 2.58 10^3/uL (4.4-10.8)
[2023-11-17 08:41] LABS: HGB 6.1 g/dL (13.5-17.5)
[2023-11-17] MEDS: Darbepoetin 300 MCG SYR SC (08:47)
[2023-11-17 08:48] LABS: ALT 22 U/L (16-63); AST 32 U/L (15-37); Albumin 3.3 g/dL (3.4-5.0); Alkaline Phosphatase 77 U/L (46-116); BUN 27 mg/dL (7-18); Bilirubin, Total 1.11 mg/dL (0.2-1.0); CREATININE 1.4 mg/dL (0.70-1.30); Calcium 8.8 mg/dL (8.5-10.1); Chloride 109 mmol/L (98-107); Estimated GFR 49.25 (mL/min/1.73m2); Ferritin 39 ng/mL (26-388); Glucose 129 mg/dL (74-106); Potassium 3.8 mmol/L (3.5-5.1); Sodium 141 mmol/L (136-145); Total Protein 6.6 g/dL (6.4-8.2)
[2023-11-17 08:52] LABS: Diff Comment Agrees w/ Instrument; RBC Morphology Normal
[2023-11-17 08:57] LABS: Iron 46 ug/dL (65-175); Total Iron Binding Capacity 399 ug/dL (250-450); Transferrin Sat 12 % (20-55)
[2023-11-24] MEDS: Normal Saline Flush 10 ML SYR IVP (08:18)
[2023-12-04 08:05] LABS: HCT 22.2 % (40.0-50.0); MCH 29.8 pg (27.0-33.0); MCHC 30.2 % (32.0-36.0); MCV 99 fL (80-95); MPV 10.6 fL (8.0-11.0); Platelet Count 135 10^3/uL (130-400); RBC 2.25 10^6/uL (4.36-5.78); RDW 18.7 % (11.8-14.1); RDW-SD 62.5 fL; WBC 4.63 10^3/uL (4.4-10.8)
[2023-12-04 08:10] LABS: HGB 6.7 g/dL (13.5-17.5)
[2023-12-04 08:15] LABS: INR 1.4 (0.9-1.1); Prothrombin Time 13.4 sec (9.1-11.1)
[2023-12-04 08:22] LABS: Absolute Lymphocyte Count 1.25 10^3/uL (1.2-3.4); Absolute Monocyte Count 0.19 10^3/uL (0.1-0.8); Absolute Neutrophil Count 3.15 10^3/uL (1.2-6.7); Anisocytosis 1+; Atypical Lymphocytes % 1 %; Diff Comment Manual Differential; Metamyelocytes % 1
[2023-12-04 10:10] VITALS: BP 115/62; BP 124/62; PULSE 84; PULSE 88; RESP 18; TEMP 36.1; TEMP 37; O2SAT 97
[2023-12-04 10:25] VITALS: BP 120/68; PULSE 89; RESP 18; TEMP 36.3; O2SAT 95
[2023-12-04 10:27] VITALS: BP 109/61; PULSE 78; RESP 18; TEMP 36.5; O2SAT 99
--- NOTE | 2023-12-04 10:45 | NUR.NOTE ---
Nursing Note: Transfusion began at 1010. There was not a delay in patient receiving the first unit. We had charting issues with the computer.
[2023-12-04 11:54] VITALS: BP 117/60; PULSE 88; RESP 18; TEMP 36.6; O2SAT 95
[2023-12-04 12:24] VITALS: BP 115/66; PULSE 87; RESP 18; TEMP 36.4; O2SAT 97
[2023-12-07] MEDS: Normal Saline Flush 10 ML SYR IVP (07:40)
[2023-12-07 08:08] LABS: Abs Immature Grans 0.04 10^3/uL (0.0-0.06); Absolute Lymphocyte Count 0.85 10^3/uL (1.2-3.4); Absolute Monocyte Count 0.27 10^3/uL (0.1-0.8); HCT 28.3 % (40.0-50.0); HGB 8.7 g/dL (13.5-17.5); Immature Grans % 1.4 %; Lymphocytes % 28.7 %; MCH 29.8 pg (27.0-33.0); MCHC 30.7 % (32.0-36.0); MCV 97 fL (80-95); MPV 10.7 fL (8.0-11.0); Monocytes % 9.1 %; Neutrophils % 60.8 %; Platelet Count 126 10^3/uL (130-400); RBC 2.92 10^6/uL (4.36-5.78); RDW 17.9 % (11.8-14.1); WBC 2.96 10^3/uL (4.4-10.8)
[2023-12-07 14:58] LABS: ALT 25 U/L (16-63); AST 55 U/L (15-37); Albumin 2.3 g/dL (3.4-5.0); Alkaline Phosphatase 63 U/L (46-116); Anion Gap 5.8 mmol/L (3-11); BUN 32 mg/dL (7-18); Bilirubin, Total 0.75 mg/dL (0.2-1.0); CO2 24.2 mmol/L (21.0-32.0); CREATININE 1.3 mg/dL (0.70-1.30); Calcium 8.5 mg/dL (8.5-10.1); Chloride 108 mmol/L (98-107); Estimated GFR 53.84 (mL/min/1.73m2); Glucose 115 mg/dL (74-106); Potassium 5.2 mmol/L (3.5-5.1); Sodium 138 mmol/L (136-145); Total Protein 5.3 g/dL (6.4-8.2)
[2023-12-10 08:25] LABS: Abs Immature Grans 0.05 10^3/uL (0.0-0.06); Absolute Basophil Count 0.02 10^3/uL (0.0-0.2); Absolute Eosinophil Count 0.01 10^3/uL (0.0-0.7); Absolute Lymphocyte Count 0.81 10^3/uL (1.2-3.4); Absolute Monocyte Count 0.31 10^3/uL (0.1-0.8); Absolute Neutrophil Count 2.13 10^3/uL (1.2-6.7); Basophils % 0.6 %; Eosinophils % 0.3 %; HCT 28.2 % (40.0-50.0); Immature Grans % 1.5 %; Lymphocytes % 24.3 %; MCHC 29.8 % (32.0-36.0); MCV 97 fL (80-95); MPV 10.8 fL (8.0-11.0); Monocytes % 9.3 %; Nucleated RBC 1.2 % (0.0-0.3); RDW-SD 59.3 fL; WBC 3.33 10^3/uL (4.4-10.8)
[2023-12-10 08:51] LABS: HGB 8.4 g/dL (13.5-17.5)
[2023-12-10 08:55] LABS: Anisocytosis 1+; Diff Comment RBC Morph Reviewed; Hypochromasia 2+; Polychromasia Present
[2023-12-10 08:56] LABS: Poikilocytes 2+
[2023-12-10 08:57] LABS: Platelet Count 124 10^3/uL (130-400)
[2023-12-10] MEDS: Darbepoetin 300 MCG SYR SC (09:09)
[2023-12-10] MEDS: Normal Saline Flush 10 ML SYR IVP (09:09)
[2023-12-10 09:37] LABS: ALT 29 U/L (16-63); AST 81 U/L (15-37); Albumin 2.4 g/dL (3.4-5.0); Alkaline Phosphatase 62 U/L (46-116); Anion Gap 4.5 mmol/L (3-11); BUN 26 mg/dL (7-18); Bilirubin, Total 0.87 mg/dL (0.2-1.0); CO2 25.5 mmol/L (21.0-32.0); CREATININE 1.2 mg/dL (0.70-1.30); Calcium 8.7 mg/dL (8.5-10.1); Chloride 108 mmol/L (98-107); Estimated GFR 59.26 (mL/min/1.73m2); Glucose 114 mg/dL (74-106); Potassium 5.1 mmol/L (3.5-5.1); Sodium 138 mmol/L (136-145); Total Protein 5.4 g/dL (6.4-8.2)
== END 2023-12-13 23:59 | disposition home or self-care (01) ==
LOC: INF 01:33
PROVIDERS: Family Medicine; PCP Family Medicine; Visit Provider Internal Medicine
DX: D46.0 Refractory anemia without ring sideroblasts, so stated; D50.9 Iron deficiency anemia, unspecified; D46.9 Myelodysplastic syndrome, unspecified
CPT/HCPCS: 36415; 36430; 80053; 86850; 86900; 86901; 86920; 96372; 82728; 83540; 83550; 85025; 85610; J0881; P9016

== ENCOUNTER 2024-01-11 01:51 | Outpatient (RCR) | payer MEDICARE, SELFPAY ==
[2023-12-14] VITALS (7 sets, daily range): BP systolic 114–148; BP diastolic 72–95; PULSE 79–97; RESP 16–18; TEMP 36.4–36.8; O2SAT 97–99
[2023-12-14] MEDS: Normal Saline Flush 10 ML SYR IVP (08:13)
[2023-12-14 08:39] LABS: Abs Immature Grans 0.03 10^3/uL (0.0-0.06); HCT 27.5 % (40.0-50.0); HGB 7.9 g/dL (13.5-17.5); MCH 28.4 pg (27.0-33.0); MCHC 28.7 % (32.0-36.0); MCV 99 fL (80-95); MPV 10.5 fL (8.0-11.0); Nucleated RBC 1.5 % (0.0-0.3); Platelet Count 111 10^3/uL (130-400); RBC 2.78 10^6/uL (4.36-5.78); RDW 16.4 % (11.8-14.1); RDW-SD 59.2 fL
[2023-12-14 08:56] LABS: ALT 33 U/L (16-63); AST 50 U/L (15-37); Albumin 2.7 g/dL (3.4-5.0); Alkaline Phosphatase 95 U/L (46-116); Anion Gap 6.7 mmol/L (3-11); BUN 23 mg/dL (7-18); Bilirubin, Total 0.91 mg/dL (0.2-1.0); CO2 25.3 mmol/L (21.0-32.0); CREATININE 1.5 mg/dL (0.70-1.30); Calcium 8.6 mg/dL (8.5-10.1); Chloride 110 mmol/L (98-107); Estimated GFR 45.34 (mL/min/1.73m2); Glucose 142 mg/dL (74-106); Potassium 4.4 mmol/L (3.5-5.1); Sodium 142 mmol/L (136-145)
[2023-12-14 09:12] LABS: Absolute Eosinophil Count 0.02 10^3/uL (0.0-0.7); Absolute Monocyte Count 0.08 10^3/uL (0.1-0.8); Absolute Neutrophil Count 1.23 10^3/uL (1.2-6.7)
[2023-12-14 09:13] LABS: Anisocytosis 2+; Diff Comment Manual Differential
[2023-12-14 09:14] LABS: WBC 1.95 10^3/uL (4.4-10.8)
[2023-12-17 08:03] LABS: Abs Immature Grans 0.04 10^3/uL (0.0-0.06); Absolute Basophil Count 0.01 10^3/uL (0.0-0.2); Absolute Lymphocyte Count 1.01 10^3/uL (1.2-3.4); Absolute Neutrophil Count 1.98 10^3/uL (1.2-6.7); Basophils % 0.3 %; HCT 32.3 % (40.0-50.0); HGB 9.5 g/dL (13.5-17.5); Immature Grans % 1.2 %; Lymphocytes % 31.2 %; MCH 28.7 pg (27.0-33.0); MCHC 29.4 % (32.0-36.0); MCV 98 fL (80-95); MPV 10.7 fL (8.0-11.0); Monocytes % 6.2 %; Neutrophils % 61.1 %; Nucleated RBC 0.6 % (0.0-0.3); Platelet Count 115 10^3/uL (130-400); RBC 3.31 10^6/uL (4.36-5.78); RDW 17.6 % (11.8-14.1); RDW-SD 60.9 fL; WBC 3.24 10^3/uL (4.4-10.8)
[2023-12-17 08:20] LABS: ALT 34 U/L (16-63); AST 33 U/L (15-37); Alkaline Phosphatase 106 U/L (46-116); Anion Gap 6.3 mmol/L (3-11); BUN 22 mg/dL (7-18); Bilirubin, Total 1.01 mg/dL (0.2-1.0); CO2 26.7 mmol/L (21.0-32.0); CREATININE 1.4 mg/dL (0.70-1.30); Calcium 9.2 mg/dL (8.5-10.1); Chloride 110 mmol/L (98-107); Estimated GFR 49.25 (mL/min/1.73m2); Glucose 132 mg/dL (74-106); Sodium 143 mmol/L (136-145); Total Protein 6.6 g/dL (6.4-8.2)
[2023-12-17] MEDS: Darbepoetin 300 MCG SYR SC (08:24)
[2023-12-17] MEDS: Normal Saline Flush 10 ML SYR IVP (08:27)
[2023-12-21] MEDS: Normal Saline Flush 10 ML SYR IVP (07:52)
[2023-12-21 08:07] LABS: Abs Immature Grans 0.04 10^3/uL (0.0-0.06); Absolute Lymphocyte Count 1.09 10^3/uL (1.2-3.4); Absolute Monocyte Count 0.24 10^3/uL (0.1-0.8); Absolute Neutrophil Count 1.61 10^3/uL (1.2-6.7); HCT 32.6 % (40.0-50.0); HGB 9.4 g/dL (13.5-17.5); Immature Grans % 1.3 %; Lymphocytes % 36.6 %; MCH 28.7 pg (27.0-33.0); MCHC 28.8 % (32.0-36.0); MCV 99 fL (80-95); MPV 10.8 fL (8.0-11.0); Monocytes % 8.1 %; Platelet Count 112 10^3/uL (130-400); RBC 3.28 10^6/uL (4.36-5.78); RDW 18.2 % (11.8-14.1); WBC 2.98 10^3/uL (4.4-10.8)
[2023-12-21 08:22] LABS: ALT 29 U/L (16-63); AST 33 U/L (15-37); Albumin 3.2 g/dL (3.4-5.0); Alkaline Phosphatase 103 U/L (46-116); BUN 23 mg/dL (7-18); Bilirubin, Total 1.09 mg/dL (0.2-1.0); CREATININE 1.4 mg/dL (0.70-1.30); Calcium 9.2 mg/dL (8.5-10.1); Chloride 111 mmol/L (98-107); Estimated GFR 49.25 (mL/min/1.73m2); Glucose 116 mg/dL (74-106); Potassium 4.5 mmol/L (3.5-5.1); Sodium 147 mmol/L (136-145)
[2023-12-24 07:40] VITALS: BP 145/86; PULSE 80; RESP 18; TEMP 36.4; O2SAT 99
[2023-12-24 07:51] LABS: Abs Immature Grans 0.04 10^3/uL (0.0-0.06); Absolute Lymphocyte Count 1.12 10^3/uL (1.2-3.4); Absolute Monocyte Count 0.24 10^3/uL (0.1-0.8); Absolute Neutrophil Count 1.28 10^3/uL (1.2-6.7); HCT 32.3 % (40.0-50.0); HGB 9.3 g/dL (13.5-17.5); Immature Grans % 1.5 %; Lymphocytes % 41.8 %; MCH 28.8 pg (27.0-33.0); MCHC 28.8 % (32.0-36.0); MCV 100 fL (80-95); MPV 10.9 fL (8.0-11.0); Neutrophils % 47.7 %; Nucleated RBC 2.6 % (0.0-0.3); Platelet Count 101 10^3/uL (130-400); RBC 3.23 10^6/uL (4.36-5.78); RDW 18.3 % (11.8-14.1); RDW-SD 65.8 fL; WBC 2.68 10^3/uL (4.4-10.8)
[2023-12-24] MEDS: Darbepoetin 300 MCG SYR SC (08:20)
[2023-12-24 09:17] LABS: ALT 30 U/L (16-63); AST 36 U/L (15-37); Albumin 3.1 g/dL (3.4-5.0); Alkaline Phosphatase 103 U/L (46-116); Anion Gap 8.2 mmol/L (3-11); BUN 23 mg/dL (7-18); Bilirubin, Total 1.13 mg/dL (0.2-1.0); CO2 26.8 mmol/L (21.0-32.0); CREATININE 1.4 mg/dL (0.70-1.30); Calcium 9.2 mg/dL (8.5-10.1); Chloride 111 mmol/L (98-107); Estimated GFR 49.25 (mL/min/1.73m2); Glucose 117 mg/dL (74-106); Potassium 4.7 mmol/L (3.5-5.1); Sodium 146 mmol/L (136-145); Total Protein 6.8 g/dL (6.4-8.2)
[2023-12-28 07:46] LABS: Abs Immature Grans 0.03 10^3/uL (0.0-0.06); HCT 34.4 % (40.0-50.0); HGB 9.9 g/dL (13.5-17.5); MCH 28.7 pg (27.0-33.0); MCHC 28.8 % (32.0-36.0); MCV 100 fL (80-95); RBC 3.45 10^6/uL (4.36-5.78); RDW-SD 64.9 fL; WBC 2.88 10^3/uL (4.4-10.8)
[2023-12-28 08:00] LABS: ALT 29 U/L (16-63); AST 36 U/L (15-37); Albumin 3.3 g/dL (3.4-5.0); Alkaline Phosphatase 96 U/L (46-116); Anion Gap 8.4 mmol/L (3-11); BUN 25 mg/dL (7-18); Bilirubin, Total 1.23 mg/dL (0.2-1.0); CO2 26.6 mmol/L (21.0-32.0); CREATININE 1.5 mg/dL (0.70-1.30); Calcium 9.3 mg/dL (8.5-10.1); Chloride 109 mmol/L (98-107); Estimated GFR 45.34 (mL/min/1.73m2); Glucose 116 mg/dL (74-106); Potassium 4.4 mmol/L (3.5-5.1); Sodium 144 mmol/L (136-145); Total Protein 7.1 g/dL (6.4-8.2)
[2023-12-28 08:04] LABS: Absolute Lymphocyte Count 1.18 10^3/uL (1.2-3.4); Absolute Monocyte Count 0.17 10^3/uL (0.1-0.8); Absolute Neutrophil Count 1.53 10^3/uL (1.2-6.7); Atypical Lymphocytes % 6 %; Platelet Count 93 10^3/uL (130-400)
[2023-12-28 08:05] LABS: Diff Comment Manual Differential; RBC Morphology Normal
[2023-12-31 08:13] LABS: HCT 31.9 % (40.0-50.0); HGB 8.9 g/dL (13.5-17.5); MCH 28.2 pg (27.0-33.0); MCHC 27.9 % (32.0-36.0); MCV 101 fL (80-95); MPV 10.4 fL (8.0-11.0); RBC 3.16 10^6/uL (4.36-5.78); RDW 18.4 % (11.8-14.1); RDW-SD 66.4 fL; WBC 2.79 10^3/uL (4.4-10.8)
[2023-12-31 08:33] LABS: Absolute Lymphocyte Count 1.17 10^3/uL (1.2-3.4); Absolute Monocyte Count 0.11 10^3/uL (0.1-0.8); Absolute Neutrophil Count 1.45 10^3/uL (1.2-6.7); Bands % 0 %; Myelocytes % 2; Platelet Count 91 10^3/uL (130-400)
[2023-12-31 08:34] LABS: ALT 28 U/L (16-63); AST 33 U/L (15-37); Albumin 3.1 g/dL (3.4-5.0); Alkaline Phosphatase 93 U/L (46-116); Anion Gap 8.4 mmol/L (3-11); Anisocytosis 1+; BUN 25 mg/dL (7-18); Bilirubin, Total 0.96 mg/dL (0.2-1.0); CO2 26.6 mmol/L (21.0-32.0); CREATININE 1.5 mg/dL (0.70-1.30); Calcium 8.8 mg/dL (8.5-10.1); Chloride 111 mmol/L (98-107); Diff Comment Manual Differential; Estimated GFR 45.34 (mL/min/1.73m2); Glucose 123 mg/dL (74-106); Hypochromasia 1+; Poikilocytes 1+; Polychromasia Present; Potassium 4.2 mmol/L (3.5-5.1); Sodium 146 mmol/L (136-145); Total Protein 6.9 g/dL (6.4-8.2)
[2023-12-31] MEDS: Darbepoetin 300 MCG SYR SC (08:48)
[2024-01-04 07:42] LABS: Abs Immature Grans 0.02 10^3/uL (0.0-0.06); HCT 29.7 % (40.0-50.0); HGB 8.4 g/dL (13.5-17.5); MCH 28.4 pg (27.0-33.0); MCHC 28.3 % (32.0-36.0); MCV 100 fL (80-95); RBC 2.96 10^6/uL (4.36-5.78); RDW 18.7 % (11.8-14.1); RDW-SD 68.3 fL
[2024-01-04 08:04] LABS: ALT 24 U/L (16-63); AST 32 U/L (15-37); Albumin 3.2 g/dL (3.4-5.0); Alkaline Phosphatase 94 U/L (46-116); Anion Gap 9.1 mmol/L (3-11); BUN 24 mg/dL (7-18); Bilirubin, Total 1.05 mg/dL (0.2-1.0); CO2 26.9 mmol/L (21.0-32.0); CREATININE 1.6 mg/dL (0.70-1.30); Calcium 9.1 mg/dL (8.5-10.1); Chloride 110 mmol/L (98-107); Estimated GFR 41.96 (mL/min/1.73m2); Glucose 123 mg/dL (74-106); Potassium 4.5 mmol/L (3.5-5.1); Sodium 146 mmol/L (136-145)
[2024-01-04 08:11] LABS: Platelet Count 100 10^3/uL (130-400)
[2024-01-04 08:12] LABS: Absolute Basophil Count 0.02 10^3/uL (0.0-0.2); Absolute Lymphocyte Count 0.83 10^3/uL (1.2-3.4); Absolute Monocyte Count 0.12 10^3/uL (0.1-0.8); Absolute Neutrophil Count 1.29 10^3/uL (1.2-6.7); Diff Comment Manual Differential; Myelocytes % 2
[2024-01-04 08:13] LABS: Hypochromasia 2+
[2024-01-07 08:00] LABS: HCT 28.2 % (40.0-50.0); MCH 28.6 pg (27.0-33.0); MCHC 28.4 % (32.0-36.0); MCV 101 fL (80-95); MPV 10.6 fL (8.0-11.0); RDW 18.7 % (11.8-14.1); RDW-SD 68.4 fL; WBC 2.82 10^3/uL (4.4-10.8)
[2024-01-07 08:12] LABS: Absolute Lymphocyte Count 1.27 10^3/uL (1.2-3.4); Absolute Neutrophil Count 1.55 10^3/uL (1.2-6.7); Atypical Lymphocytes % 1 %; Diff Comment Manual Differential; Platelet Count 97 10^3/uL (130-400); RBC Morphology Normal
[2024-01-07 08:16] LABS: ALT 28 U/L (16-63); AST 33 U/L (15-37); Albumin 3.2 g/dL (3.4-5.0); Alkaline Phosphatase 88 U/L (46-116); Anion Gap 6.9 mmol/L (3-11); BUN 27 mg/dL (7-18); Bilirubin, Total 1.09 mg/dL (0.2-1.0); CO2 26.1 mmol/L (21.0-32.0); CREATININE 1.6 mg/dL (0.70-1.30); Calcium 9.2 mg/dL (8.5-10.1); Chloride 111 mmol/L (98-107); Estimated GFR 41.96 (mL/min/1.73m2); Glucose 151 mg/dL (74-106); Potassium 4.5 mmol/L (3.5-5.1); Sodium 144 mmol/L (136-145); Total Protein 6.9 g/dL (6.4-8.2)
[2024-01-07] MEDS: Darbepoetin 300 MCG SYR SC (08:44)
[2024-01-07] MEDS: Normal Saline Flush 10 ML SYR IVP (08:50)
[2024-01-07 09:30] VITALS: BP 111/63; PULSE 93; RESP 18; TEMP 36.9; O2SAT 96
[2024-01-07 09:45] VITALS: BP 115/79; PULSE 88; RESP 18; TEMP 36.4; O2SAT 100
[2024-01-07 10:05] VITALS: BP 118/81; PULSE 84; RESP 16; TEMP 36.9; O2SAT 97
[2024-01-07 10:15] VITALS: BP 117/80; PULSE 82; RESP 17; TEMP 36.8; O2SAT 100
--- NOTE | 2024-01-07 10:18 | NUR.NOTE ---
Nursing Note: PHYSICAL ASSESSMENT DONE ON PT BASED OFF APPEARANCE OF INCREASED WEIGHT GAIN AND PT STATEMENT OF I HAD A DIZZY SPELL YESTERDAY ANTERIOR AND POSTERIOR LUNG AUSCULTATION, ANTERIOR BILATERAL UPPER LUNGS: CTA. POSTERIOR BILATERAL UPPER LUNGS CTA. POSTERIOR BILATERAL LOWER LOBES DIMINISHED. RIGHT LOWER LEG 3+ PITTING EDEMA LEFT LOWER LEG 2+ PITTING EDEMA. PT HAS NO COMPLAINTS OF SOB. VS WEIGHT 89.4KG THIS IS A 6KG INCREASE FROM HOSPITAL DC IN 12/06. BP 104/69, RR20, HR 101, SPo2 98% RAMarlon BEVERLY NOTIFIED OF THESE FINDINGS OF CONCERNS. SPOKE WITH LUCILLE TRONCOSO AT [facility] AT 10:15 INFORMING HER OF ABOVE. LUCILLE STATED I WILL PASS THIS INFORMATION ALONG TO THE PROVIDER [employer]
[2024-01-07 11:15] VITALS: BP 120/83; PULSE 87; RESP 17; TEMP 36.7; O2SAT 96
[2024-01-11] MEDS: Normal Saline Flush 10 ML SYR IVP (07:43)
[2024-01-11 07:50] LABS: Abs Immature Grans 0.03 10^3/uL (0.0-0.06); Absolute Basophil Count 0.01 10^3/uL (0.0-0.2); Absolute Eosinophil Count 0.01 10^3/uL (0.0-0.7); Absolute Lymphocyte Count 0.97 10^3/uL (1.2-3.4); Absolute Monocyte Count 0.31 10^3/uL (0.1-0.8); Absolute Neutrophil Count 1.86 10^3/uL (1.2-6.7); Basophils % 0.3 %; Eosinophils % 0.3 %; HCT 31.3 % (40.0-50.0); HGB 8.9 g/dL (13.5-17.5); Immature Grans % 0.9 %; Lymphocytes % 30.4 %; MCH 28.5 pg (27.0-33.0); MCHC 28.4 % (32.0-36.0); MCV 100 fL (80-95); MPV 11.2 fL (8.0-11.0); Monocytes % 9.7 %; Neutrophils % 58.4 %; Nucleated RBC 1.3 % (0.0-0.3); Platelet Count 102 10^3/uL (130-400); RBC 3.12 10^6/uL (4.36-5.78); RDW 20.2 % (11.8-14.1); RDW-SD 71.9 fL; WBC 3.19 10^3/uL (4.4-10.8)
[2024-01-11 08:04] LABS: ALT 24 U/L (16-63); AST 34 U/L (15-37); Albumin 3.3 g/dL (3.4-5.0); Alkaline Phosphatase 95 U/L (46-116); Anion Gap 8.3 mmol/L (3-11); BUN 21 mg/dL (7-18); Bilirubin, Total 1.21 mg/dL (0.2-1.0); CO2 27.7 mmol/L (21.0-32.0); CREATININE 1.7 mg/dL (0.70-1.30); Calcium 9.3 mg/dL (8.5-10.1); Chloride 109 mmol/L (98-107); Estimated GFR 39.02 (mL/min/1.73m2); Glucose 154 mg/dL (74-106); Potassium 3.9 mmol/L (3.5-5.1); Sodium 145 mmol/L (136-145); Total Protein 7.2 g/dL (6.4-8.2)
[2024-01-11 08:22] LABS: Anisocytosis 1+; Macrocytosis 1+
== END 2024-01-13 23:59 | disposition home or self-care (01) ==
LOC: INF 01:51
PROVIDERS: Internal Medicine; PCP Family Medicine; Visit Provider Nurse Practitioner Adult Health
DX: D46.0 Refractory anemia without ring sideroblasts, so stated (principal); D46.9 Myelodysplastic syndrome, unspecified
CPT/HCPCS: 36415; 36430; 80053; 86850; 86900; 86901; 86920; 96372; 85025; J0881; P9016

== ENCOUNTER 2024-02-11 08:00 | Outpatient (RCR) | payer MEDICARE, SELFPAY ==
[2024-01-14 00:29] VITALS: BP 148/95; PULSE 82; RESP 17; TEMP 36.4
[2024-01-14] MEDS: Normal Saline Flush 10 ML SYR IVP (07:38)
[2024-01-14 08:09] LABS: Abs Immature Grans 0.03 10^3/uL (0.0-0.06); Absolute Basophil Count 0.01 10^3/uL (0.0-0.2); Absolute Lymphocyte Count 0.81 10^3/uL (1.2-3.4); Absolute Monocyte Count 0.23 10^3/uL (0.1-0.8); Absolute Neutrophil Count 1.34 10^3/uL (1.2-6.7); Basophils % 0.4 %; HCT 29.8 % (40.0-50.0); HGB 8.5 g/dL (13.5-17.5); Immature Grans % 1.2 %; Lymphocytes % 33.5 %; MCH 28.6 pg (27.0-33.0); MCHC 28.5 % (32.0-36.0); MCV 100 fL (80-95); MPV 11.8 fL (8.0-11.0); Monocytes % 9.5 %; Neutrophils % 55.4 %; Nucleated RBC 0.8 % (0.0-0.3); RBC 2.97 10^6/uL (4.36-5.78); RDW 19.9 % (11.8-14.1); WBC 2.42 10^3/uL (4.4-10.8)
[2024-01-14 08:24] LABS: Platelet Count 94 10^3/uL (130-400)
[2024-01-14] MEDS: Darbepoetin 300 MCG SYR SC (08:38)
[2024-01-14 09:10] LABS: ALT 23 U/L (16-63); AST 34 U/L (15-37); Albumin 2.9 g/dL (3.4-5.0); Alkaline Phosphatase 89 U/L (46-116); Anion Gap 8.7 mmol/L (3-11); BUN 24 mg/dL (7-18); Bilirubin, Total 1.03 mg/dL (0.2-1.0); CO2 26.3 mmol/L (21.0-32.0); CREATININE 1.7 mg/dL (0.70-1.30); Calcium 9.3 mg/dL (8.5-10.1); Chloride 111 mmol/L (98-107); Estimated GFR 39.02 (mL/min/1.73m2); Glucose 153 mg/dL (74-106); Sodium 146 mmol/L (136-145); Total Protein 6.6 g/dL (6.4-8.2)
[2024-01-18 07:50] LABS: Abs Immature Grans 0.04 10^3/uL (0.0-0.06); Absolute Basophil Count 0.01 10^3/uL (0.0-0.2); Absolute Eosinophil Count 0.01 10^3/uL (0.0-0.7); Absolute Lymphocyte Count 0.94 10^3/uL (1.2-3.4); Absolute Monocyte Count 0.27 10^3/uL (0.1-0.8); Absolute Neutrophil Count 2.11 10^3/uL (1.2-6.7); Basophils % 0.3 %; Eosinophils % 0.3 %; HCT 31.5 % (40.0-50.0); HGB 8.7 g/dL (13.5-17.5); Immature Grans % 1.2 %; Lymphocytes % 27.8 %; MCHC 27.6 % (32.0-36.0); MCV 101 fL (80-95); MPV 11.3 fL (8.0-11.0); Neutrophils % 62.4 %; Nucleated RBC 0.9 % (0.0-0.3); RBC 3.11 10^6/uL (4.36-5.78); RDW 19.5 % (11.8-14.1); RDW-SD 71.4 fL; WBC 3.38 10^3/uL (4.4-10.8)
[2024-01-18 08:06] LABS: ALT 27 U/L (16-63); AST 37 U/L (15-37); Albumin 3.3 g/dL (3.4-5.0); Alkaline Phosphatase 105 U/L (46-116); BUN 24 mg/dL (7-18); Bilirubin, Total 1.48 mg/dL (0.2-1.0); CREATININE 1.7 mg/dL (0.70-1.30); Calcium 9.5 mg/dL (8.5-10.1); Chloride 110 mmol/L (98-107); Estimated GFR 39.02 (mL/min/1.73m2); Glucose 145 mg/dL (74-106); Potassium 4.7 mmol/L (3.5-5.1); Sodium 147 mmol/L (136-145); Total Protein 7.6 g/dL (6.4-8.2)
[2024-01-18 08:42] LABS: Diff Comment RBC Morph Reviewed
[2024-01-18 08:43] LABS: Anisocytosis 2+; Hypochromasia 2+; Polychromasia Present
[2024-01-18 08:46] LABS: Poikilocytes 2+
[2024-01-18 08:47] LABS: Platelet Count 87 10^3/uL (130-400)
[2024-01-21 07:53] LABS: Abs Immature Grans 0.06 10^3/uL (0.0-0.06); Absolute Eosinophil Count 0.01 10^3/uL (0.0-0.7); Absolute Monocyte Count 0.28 10^3/uL (0.1-0.8); Absolute Neutrophil Count 1.83 10^3/uL (1.2-6.7); Eosinophils % 0.3 %; HCT 30.8 % (40.0-50.0); HGB 8.7 g/dL (13.5-17.5); Immature Grans % 1.8 %; Lymphocytes % 33.5 %; MCH 28.5 pg (27.0-33.0); MCHC 28.2 % (32.0-36.0); MCV 101 fL (80-95); MPV 10.8 fL (8.0-11.0); Monocytes % 8.5 %; Neutrophils % 55.9 %; Nucleated RBC 1.5 % (0.0-0.3); RBC 3.05 10^6/uL (4.36-5.78); RDW 19.8 % (11.8-14.1); RDW-SD 71.1 fL; WBC 3.28 10^3/uL (4.4-10.8)
[2024-01-21 08:01] LABS: ALT 22 U/L (16-63); AST 35 U/L (15-37); Albumin 3.2 g/dL (3.4-5.0); Alkaline Phosphatase 100 U/L (46-116); Anion Gap 9.6 mmol/L (3-11); BUN 23 mg/dL (7-18); Bilirubin, Total 1.59 mg/dL (0.2-1.0); CO2 26.4 mmol/L (21.0-32.0); CREATININE 1.9 mg/dL (0.70-1.30); Calcium 9.3 mg/dL (8.5-10.1); Chloride 108 mmol/L (98-107); Estimated GFR 34.14 (mL/min/1.73m2); Glucose 128 mg/dL (74-106); Potassium 4.2 mmol/L (3.5-5.1); Sodium 144 mmol/L (136-145); Total Protein 7.4 g/dL (6.4-8.2)
[2024-01-21 08:26] LABS: Diff Comment Diff Reviewed; Platelet Count 95 10^3/uL (130-400); Polychromasia Present
[2024-01-21 08:38] LABS: Hypochromasia 2+
[2024-01-21] MEDS: Darbepoetin 300 MCG SYR SC (08:42)
[2024-01-25 07:59] LABS: Abs Immature Grans 0.04 10^3/uL (0.0-0.06); Absolute Basophil Count 0.01 10^3/uL (0.0-0.2); Absolute Lymphocyte Count 0.83 10^3/uL (1.2-3.4); Absolute Monocyte Count 0.22 10^3/uL (0.1-0.8); Absolute Neutrophil Count 1.43 10^3/uL (1.2-6.7); Basophils % 0.4 %; HCT 29.8 % (40.0-50.0); HGB 8.3 g/dL (13.5-17.5); Immature Grans % 1.6 %; Lymphocytes % 32.8 %; MCH 28.5 pg (27.0-33.0); MCHC 27.9 % (32.0-36.0); MCV 102 fL (80-95); Monocytes % 8.7 %; Neutrophils % 56.5 %; Nucleated RBC 2.4 % (0.0-0.3); RBC 2.91 10^6/uL (4.36-5.78); RDW 20.6 % (11.8-14.1); RDW-SD 75.2 fL; WBC 2.53 10^3/uL (4.4-10.8)
[2024-01-25 08:12] LABS: ALT 20 U/L (16-63); AST 35 U/L (15-37); Albumin 3.1 g/dL (3.4-5.0); Alkaline Phosphatase 103 U/L (46-116); Anion Gap 9.6 mmol/L (3-11); BUN 20 mg/dL (7-18); Bilirubin, Total 1.58 mg/dL (0.2-1.0); CO2 25.4 mmol/L (21.0-32.0); CREATININE 1.6 mg/dL (0.70-1.30); Chloride 111 mmol/L (98-107); Estimated GFR 41.96 (mL/min/1.73m2); Glucose 117 mg/dL (74-106); Potassium 4.7 mmol/L (3.5-5.1); Sodium 146 mmol/L (136-145)
[2024-01-25 08:32] LABS: Anisocytosis 2+; Diff Comment RBC Morph Reviewed; Macrocytosis 2+; Platelet Count 84 10^3/uL (130-400); Polychromasia Present
[2024-01-25 08:33] LABS: Poikilocytes 2+; Spherocytes 2+; Tear Drop Cells 2+
[2024-01-28 07:44] LABS: HCT 32.9 % (40.0-50.0); HGB 9.1 g/dL (13.5-17.5); MCH 28.4 pg (27.0-33.0); MCHC 27.7 % (32.0-36.0); MCV 103 fL (80-95); MPV 10.1 fL (8.0-11.0); RDW 20.1 % (11.8-14.1); RDW-SD 76.2 fL; WBC 2.66 10^3/uL (4.4-10.8)
[2024-01-28 08:10] LABS: Anisocytosis 3+; Hypochromasia 2+; Polychromasia Present
[2024-01-28 08:12] LABS: Absolute Lymphocyte Count 1.17 10^3/uL (1.2-3.4); Absolute Neutrophil Count 1.49 10^3/uL (1.2-6.7); Atypical Lymphocytes % 2 %; Platelet Count 92 10^3/uL (130-400)
[2024-01-28 08:14] LABS: Diff Comment Manual Differential
[2024-01-28] MEDS: Darbepoetin 300 MCG SYR SC (08:29)
[2024-02-01 07:44] LABS: Abs Immature Grans 0.02 10^3/uL (0.0-0.06); HCT 31.8 % (40.0-50.0); HGB 8.8 g/dL (13.5-17.5); MCH 28.6 pg (27.0-33.0); MCHC 27.7 % (32.0-36.0); MCV 103 fL (80-95); MPV 10.3 fL (8.0-11.0); RBC 3.08 10^6/uL (4.36-5.78); RDW 19.9 % (11.8-14.1); RDW-SD 74.8 fL; WBC 2.44 10^3/uL (4.4-10.8)
[2024-02-01 07:58] LABS: ALT 20 U/L (16-63); AST 28 U/L (15-37); Albumin 3.2 g/dL (3.4-5.0); Alkaline Phosphatase 89 U/L (46-116); Anion Gap 8.8 mmol/L (3-11); BUN 25 mg/dL (7-18); Bilirubin, Total 1.56 mg/dL (0.2-1.0); CO2 26.2 mmol/L (21.0-32.0); CREATININE 1.6 mg/dL (0.70-1.30); Calcium 9.1 mg/dL (8.5-10.1); Chloride 109 mmol/L (98-107); Estimated GFR 41.96 (mL/min/1.73m2); Glucose 122 mg/dL (74-106); Potassium 3.9 mmol/L (3.5-5.1); Sodium 144 mmol/L (136-145); Total Protein 7.2 g/dL (6.4-8.2)
[2024-02-01 08:12] LABS: Absolute Lymphocyte Count 1.12 10^3/uL (1.2-3.4); Absolute Monocyte Count 0.12 10^3/uL (0.1-0.8); Absolute Neutrophil Count 1.17 10^3/uL (1.2-6.7); Atypical Lymphocytes % 6 %; Bands % 0 %
[2024-02-01 08:17] LABS: Hypochromasia 1+
[2024-02-01 08:18] LABS: Platelet Count 94 10^3/uL (130-400)
[2024-02-04 08:03] LABS: Abs Immature Grans 0.03 10^3/uL (0.0-0.06); Absolute Lymphocyte Count 0.81 10^3/uL (1.2-3.4); Absolute Monocyte Count 0.22 10^3/uL (0.1-0.8); Absolute Neutrophil Count 1.19 10^3/uL (1.2-6.7); HCT 33.1 % (40.0-50.0); HGB 9.2 g/dL (13.5-17.5); Immature Grans % 1.3 %; MCH 28.8 pg (27.0-33.0); MCHC 27.8 % (32.0-36.0); MCV 103 fL (80-95); MPV 11.3 fL (8.0-11.0); Monocytes % 9.8 %; Neutrophils % 52.9 %; Nucleated RBC 2.2 % (0.0-0.3); RDW 19.9 % (11.8-14.1); RDW-SD 74.5 fL; WBC 2.25 10^3/uL (4.4-10.8)
[2024-02-04 08:14] LABS: Platelet Count 89 10^3/uL (130-400)
[2024-02-04 08:15] LABS: ALT 22 U/L (16-63); AST 34 U/L (15-37); Albumin 3.4 g/dL (3.4-5.0); Alkaline Phosphatase 94 U/L (46-116); Anion Gap 9.4 mmol/L (3-11); BUN 23 mg/dL (7-18); Bilirubin, Total 1.81 mg/dL (0.2-1.0); CO2 26.6 mmol/L (21.0-32.0); CREATININE 1.6 mg/dL (0.70-1.30); Calcium 9.1 mg/dL (8.5-10.1); Chloride 110 mmol/L (98-107); Estimated GFR 41.96 (mL/min/1.73m2); Glucose 146 mg/dL (74-106); Potassium 4.1 mmol/L (3.5-5.1); Sodium 146 mmol/L (136-145); Total Protein 7.5 g/dL (6.4-8.2)
[2024-02-04] MEDS: Darbepoetin 300 MCG SYR SC (08:53)
[2024-02-08 07:51] LABS: Abs Immature Grans 0.03 10^3/uL (0.0-0.06); Absolute Basophil Count 0.01 10^3/uL (0.0-0.2); Absolute Lymphocyte Count 1.11 10^3/uL (1.2-3.4); Absolute Monocyte Count 0.17 10^3/uL (0.1-0.8); Absolute Neutrophil Count 1.53 10^3/uL (1.2-6.7); Basophils % 0.4 %; HCT 34.2 % (40.0-50.0); HGB 9.3 g/dL (13.5-17.5); Immature Grans % 1.1 %; Lymphocytes % 38.9 %; MCH 28.3 pg (27.0-33.0); MCHC 27.2 % (32.0-36.0); MCV 104 fL (80-95); Neutrophils % 53.6 %; RBC 3.29 10^6/uL (4.36-5.78); RDW 19.9 % (11.8-14.1); RDW-SD 76.6 fL; WBC 2.85 10^3/uL (4.4-10.8)
[2024-02-08 08:11] LABS: ALT 25 U/L (16-63); AST 37 U/L (15-37); Albumin 3.6 g/dL (3.4-5.0); Alkaline Phosphatase 97 U/L (46-116); Anion Gap 10.9 mmol/L (3-11); BUN 22 mg/dL (7-18); Bilirubin, Total 1.98 mg/dL (0.2-1.0); CO2 26.1 mmol/L (21.0-32.0); CREATININE 1.6 mg/dL (0.70-1.30); Calcium 9.2 mg/dL (8.5-10.1); Chloride 109 mmol/L (98-107); Estimated GFR 41.96 (mL/min/1.73m2); Glucose 132 mg/dL (74-106); Potassium 4.2 mmol/L (3.5-5.1); Sodium 146 mmol/L (136-145); Total Protein 7.8 g/dL (6.4-8.2)
[2024-02-08 08:20] LABS: Platelet Count 95 10^3/uL (130-400)
[2024-02-08 08:21] LABS: Diff Comment Agrees w/ Instrument; Hypochromasia 2+; Macrocytosis 1+; Polychromasia Present
[2024-02-08 14:05] LABS: Iron 55 ug/dL (65-175); Total Iron Binding Capacity 355 ug/dL (250-450); Transferrin Sat 15 % (20-55)
[2024-02-08 14:18] LABS: Ferritin 86 ng/mL (26-388)
[2024-02-08 15:43] VITALS: BP 148/95; PULSE 82; RESP 17; TEMP 36.4
[2024-02-11 07:40] LABS: Abs Immature Grans 0.05 10^3/uL (0.0-0.06); Absolute Basophil Count 0.01 10^3/uL (0.0-0.2); Absolute Lymphocyte Count 0.82 10^3/uL (1.2-3.4); Absolute Monocyte Count 0.19 10^3/uL (0.1-0.8); Absolute Neutrophil Count 1.79 10^3/uL (1.2-6.7); Basophils % 0.3 %; HCT 33.2 % (40.0-50.0); HGB 9.2 g/dL (13.5-17.5); Immature Grans % 1.7 %; Lymphocytes % 28.7 %; MCH 28.4 pg (27.0-33.0); MCHC 27.7 % (32.0-36.0); MCV 103 fL (80-95); MPV 11.1 fL (8.0-11.0); Monocytes % 6.6 %; Neutrophils % 62.7 %; Nucleated RBC 0.7 % (0.0-0.3); RBC 3.24 10^6/uL (4.36-5.78); RDW 19.2 % (11.8-14.1); RDW-SD 72.7 fL; WBC 2.86 10^3/uL (4.4-10.8)
[2024-02-11 07:53] LABS: ALT 24 U/L (16-63); AST 35 U/L (15-37); Albumin 3.4 g/dL (3.4-5.0); Alkaline Phosphatase 97 U/L (46-116); BUN 25 mg/dL (7-18); Bilirubin, Total 1.97 mg/dL (0.2-1.0); CREATININE 1.7 mg/dL (0.70-1.30); Chloride 108 mmol/L (98-107); Estimated GFR 39.02 (mL/min/1.73m2); Glucose 146 mg/dL (74-106); Potassium 3.9 mmol/L (3.5-5.1); Sodium 145 mmol/L (136-145); Total Protein 7.5 g/dL (6.4-8.2)
[2024-02-11 07:58] LABS: Platelet Count 96 10^3/uL (130-400)
[2024-02-11 07:59] LABS: Hypochromasia 1+
== END 2024-02-12 23:59 | disposition home or self-care (01) ==
LOC: INF 08:00
PROVIDERS: PCP Family Medicine; Visit Provider Nurse Practitioner Adult Health
DX: D46.0 Refractory anemia without ring sideroblasts, so stated; D50.9 Iron deficiency anemia, unspecified
CPT/HCPCS: 36415; 80053; 86850; 86900; 86901; 96372; 82728; 83540; 83550; 85025; J0881

== ENCOUNTER 2024-03-09 23:09 | Inpatient (IN) | payer MEDICARE, SELFPAY ==
[2024-03-09] VITALS (11 sets, daily range): BP systolic 128–159; BP diastolic 67–85; PULSE 118–124; RESP 20–30; O2SAT 92–100
--- NOTE | 2024-03-09 23:00 | RT.EKG_ITS ---
APPROVED REPORT Exam: Resting ECG Reason for Exam: chest pain Patient Location: E HR:119 bpm ECG Measurements Heart Rate 119 AXIS VT 64 P 194 QRSd 81 QRS -5 QT 353 T 159 QTc 497 Conclusion Sinus or ectopic atrial tachycardia...P axis (-45,135), rate> 99 Nonspecific repol abnormality, diffuse leads...ST dep, T flat/neg, ant/lat/inf Slightly prolonged QTc no ST segment or T wave abnormalities to suggest occlusive LA
--- NOTE | 2024-03-09 23:15 | DI.RAD_ITS ---
Exam(s) XR PORTABLE CHEST AP EXAM: XR PORTABLE CHEST AP CLINICAL HISTORY: chest pain TECHNIQUE: 2D digital imaging was performed. COMPARISON: CR,XR XR PORTABLE CHEST AP from 11/28/2023 FINDINGS: LUNGS: Significant interval increase in size of left pleural effusion, now large. Tiny right pleural effusion. Calcified pleural plaques again noted. HEART: Mildly enlarged. Aortic valve prosthesis AORTA: Normal diameter. BONES: Unremarkable for age. Soft tissues: . sternal wires. IMPRESSION: Large left and small right pleural effusions. DATA REPOSITORY: RADIATION DOSE DELIVERED:
--- NOTE | 2024-03-09 23:31 | ED.GENADUL_ITS ---
Discharge Plan Discharge Details Chief Complaint: Chest Pain Primary Care Provider: Rafiq El ED Provider: Mary Buckner Home Meds and New Rx's Prescriptions: No Action ferrous sulfate [iron] 325 mg (65 mg iron) tablet 325 mg PO .every other Patient Comments: patient takes every other day sucralfate 1 gram Tablet 1 g PO AC & HS Qty: 120 0RF metoprolol succinate 100 mg tablet extended release 24 hr 150 mg PO DAILY Qty: 30 0RF pantoprazole 40 mg tablet,delayed release (DR/EC) 40 mg PO BID Qty: 180 0RF HPI General Mode of arrival: EMS . Date/Time Provider Initiated Documentation: 03/09/24 23:23 . Limitations to Documentation: no limitations . Information obtained by: patient, family, EMS and old records reviewed . HPI Narrative: 83yo M with hx MDS, aortic valve replacement, intermittent GI bleed without source identified, currently on baby aspirin and no other AC, presenting for li ghtheadedness and neck/jaw/L arm pain. Yesterday felt quite lightheaded when standing. This evening began to feel lightheaded even when sitting up in bed, and began to have burning pain in his throat, jaw, and left arm, moderate to severe in intensity. This has improved somewhat but is still present. Also feels short of breath but I always feel like that and is not worse today than usual. Dark stool, no cely blood. No vomiting. No abdominal pain. Otherwise in his usual state of health with no fevers, chills, rash, pleurtic pain, dysuria, hematuria, or other concerns. Related Data Home Medications ?Medication ?Instructions ?Recorded ?Confirmed ferrous sulfate 325 mg (65 mg 325 mg PO .every other 11/22/23 03/09/24 iron) tablet (iron) metoprolol succinate 100 mg 150 mg (1.5 x 100 mg) PO DAILY #30 12/01/23 03/09/24 tablet,extended release 24 hr tabs pantoprazole 40 mg tablet,delayed 40 mg PO BID #180 tabs 12/01/23 03/09/24 release sucralfate 1 gram tablet 1 g PO AC & HS #120 tabs 12/01/23 03/09/24 Previous Rx's ?Medication ?Instructions ?Recorded metoprolol succinate 100 mg 150 mg (1.5 x 100 mg) PO DAILY #30 12/01/23 tablet,extended release 24 hr tabs pantoprazole 40 mg tablet,delayed 40 mg PO BID #180 tabs 12/01/23 release sucralfate 1 gram tablet 1 g PO AC & HS #120 tabs 12/01/23 Allergies Allergy/AdvReac Type Severity Reaction Status Date / Time PEACH SKINS AdvReac Other (See Uncoded 03/09/24 23:15 Comment) General Stated Complaint: Chest Pain WILBERT: 3 Review of Systems Narrative: see HPI Exam Narrative Exam Narrative: General: Alert, well nourished Head: Normocephalic, atraumatic Pale conjunctiva. Neck: Trachea midline, ?Neck supple. ENT: ?MMM.? No oropharygeal lesions or exudate. Cardiac: ?Tachycardiac, regular, Resp: Tachypneic to 20's. CTAB. Abd: ?Soft, non-distended, nontender : ?No suprapubic tenderness. Extremities: ?No deformities.? 1+ symmetric edema BLE Neurologic: GCS 15. ? Moves all extremities freely against gravity Course Vital Signs Vital signs: Vital Signs Pulse 120 H 03/09/24 23:09 Respiratory Rate 30 H 03/09/24 23:09 Blood Pressure 133/67 03/09/24 23:09 Pulse Oximetry 92 03/09/24 23:09 Pulse 120 H 03/09/24 23:09 Respiratory Rate 22 03/09/24 23:19 Respiratory Effort Normal, Non-Labored 03/09/24 23:19 Respiratory Depth Normal 03/09/24 23:19 Respiratory Pattern Normal 03/09/24 23:19 Blood Pressure 133/67 03/09/24 23:09 Blood Pressure Position Sitting 03/09/24 23:09 Pulse Oximetry 92 03/09/24 23:09 Oxygen Delivery Method Room Air 03/09/24 23:09 Oxygen Flow Rate 0 03/09/24 23:09 Medical Decision Making 83yo M with hx MDS, aortic valve replacement, intermittent GI bleed without source identified, currently on baby aspirin and no other AC, presenting for lightheadedness and neck/jaw/L arm pain. Has had dark stool recently, no clear bleeding. Also feels short of breath but I always feel like that and is not worse today than usual. Tachycardiac to 120's on arrival and tachynpeic to 20's; vital signs otherwise reassuring. Lungs CTAB. Pale conjuctiva on exam. No cely blood during rectal exam. EKG atrial tachycardia with diffuse ST depressions, no suggestion of occlusive RI. High suspicion for anemia (given hx, most likely 2/t GI bleed in setting of MDS) and possibly cardiac demand ischemia. Would not treat HR (i.e. betablockers) as suspect compensatory response. Will give IV protonix while awaiting results of workup; holding off on aspirin at this time as T1 NSTEMI seems less likely than bleed/anemia. Labs reviewed as below: -CBC with severe anemia at 5.1 down from 8.4 six days prior(will transufse 2 units; pt not on chemo/immunotherapy and no stem cell transplant, no indication for irradiated products) and normal platelets and slightly low WBC with normal ANC, -CMP with no actionable abnoramliites with Cr slightly elevated at 1.8 from baseline ~1.5 on [facility] record review . -Slightly elevated INR and decreased PTT, not requiring correction -Initial troponin normal, BNP elevated at ~2300 (has been around ~1200 as recently as November). Will proceed cautiously with transfusion, may require diuresis in between units. -dimer was sent given SOB and tachycardia and is positive, however overall clinical picture more supportive of symptomatic anemia than PE. Would not get CTA at this time; if remains symptomatic and tachycardiac after Hg increased to adequate range would consider at that point. CXR independently reviewed; left sided pleural effusion present on my view. Given effusion on CXR and likely GI bleed, will get CT non-con chest to futher evaluate as well as CTA abd/pelvis GI bleed protocol. Discussed with patient and family that he may benefit from transfer to [facility] for further [place] workup, though he has had extensive testing in the past with no clear source of his bleeding found. He and his family are not interested in pursuing additional advanced testing for this and would prefer to stay close to home and spend as much time at home as possible. He does want to proceed with blood transfusions. CT chest independently reviewed; again large left pleural effusion on my view radiology read below. CT abd/pelvis independently reviewed; no obstruction or free fluid on my view, radiology read below with no active bleed noted. Given respiratory status is stable and Hg quite low, would not place chest tube at this time. On reassessment HR has improved to 90's,100% on room air. Discussed with [facility] [place] center; pt did have CT there during recent admission which showed a 4.6cm ascending thoracic aortic aneurysm. Discussed with [facility] hospitalist Dr. Suresh; pt accepted to medicine service for further workup and management. Awaiting admission orders and transfer to the floor. Imaging Data Radiologic Study: Imaging: X-Ray Radiologist's impression: FINDINGS: Large left pleural effusion, new from prior study. Cannot exclude underlying parenchymal disease. Small right pleural effusion. Pleural plaques again noted. Radiologic Study #2: Imaging: CT Scan Radiologist's impression: Chest: IMPRESSION: 1. Bilateral pleural effusions. 2. Consolidation/atelectasis in the left lower lobe. Pneumonia not excluded. Follow-up advised. Large left pleural effusion, new from prior study. Cannot exclude underlying parenchymal disease. Small right pleural effusion. Pleural plaques again noted. Abd/pelvis: IMPRESSION: 1. Bilateral pleural effusions. 2. Consolidation/atelectasis in the left lower lobe. Pneumonia not excluded. Follow-up advised. Quality:SDOH Health Related Social Needs: Health related social needs details denied problems PFSH All Active Problems (Updated 03/10/24 @ 02:39 by Kian Stacy) Elevated troponin level not due to acute coronary syndrome (Acute) Pleural effusion (Acute) Atrial fibrillation (Chronic) Chronic anticoagulation (Chronic) Myelodysplastic syndrome (Chronic) Anemia (Chronic) Encounter for blood transfusion (Acute) Anemia (Chronic) H/O mechanical aortic valve replacement (Chronic) Diverticulosis of colon without diverticulitis (Chronic) Acute blood loss anemia (Acute) Upper GI bleed (Acute) 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 ear (Acute) Sensorineural hearing loss (SNHL) of right ear with restricted hearing of left ear (Acute) Sensorineural hearing loss of combined sites, bilateral (Acute 08/03/16) Medical History DNR (do not resuscitate) Not sure about intubation, +treat, +transfer, +abx, +IV fluids Advanced care planning/counseling discussion Palliative care encounter Atrial flutter Prosthetic cardiac valve vegetation Intracranial hemorrhage Discharge planning issues diverticulosis adenoma colon polyp Prosthetic Aortic Valve Overweight Hearing loss bilat Surgical History H/O prosthetic aortic valve replacement redo of aortic valve hernia/hydrocele repair Appendectomy Aortic valve replaced Social History Smoking/Tobacco Use Status: Current-Occasional Smoking risk assessment performed?: Yes Alcohol Intake: current Alcohol Intake frequency: holidays/special occasions only Alcohol type: wine Drug use: Never Substance use type: does not use Housing: house Do you feel safe at home: Yes Do you feel safe in your relationship?: Yes
[2024-03-09 23:32] LABS: Abs Immature Grans 0.03 10^3/uL (0.0-0.06); Absolute Basophil Count 0.01 10^3/uL (0.0-0.2); Absolute Lymphocyte Count 1.02 10^3/uL (1.2-3.4); Absolute Monocyte Count 0.29 10^3/uL (0.1-0.8); Absolute Neutrophil Count 2.98 10^3/uL (1.2-6.7); Basophils % 0.2 %; Immature Grans % 0.7 %; Lymphocytes % 23.6 %; MCH 28.3 pg (27.0-33.0); MCHC 27.4 % (32.0-36.0); MCV 103 fL (80-95); MPV 10.7 fL (8.0-11.0); Monocytes % 6.7 %; Neutrophils % 68.8 %; Nucleated RBC 1.6 % (0.0-0.3); Platelet Count 131 10^3/uL (130-400); RDW 18.8 % (11.8-14.1); RDW-SD 70.8 fL; WBC 4.33 10^3/uL (4.4-10.8)
[2024-03-09 23:34] LABS: HGB 5.1 g/dL (13.5-17.5)
[2024-03-09 23:35] LABS: HCT 18.6 % (40.0-50.0)
[2024-03-09 23:40] LABS: Hypochromasia 2+
[2024-03-09 23:41] LABS: Poikilocytes 3+
[2024-03-09] MEDS: Pantoprazole 40 MG VIAL IVP (23:42)
[2024-03-09 23:46] LABS: INR 1.3 (0.9-1.1); PTT Activated 22.8 sec (23.6-32.8); Prothrombin Time 12.7 sec (9.1-11.1)
[2024-03-09 23:54] LABS: ALT 21 U/L (16-63); AST 35 U/L (15-37); Albumin 3.1 g/dL (3.4-5.0); Alkaline Phosphatase 86 U/L (46-116); Anion Gap 12.2 mmol/L (3-11); BUN 35 mg/dL (7-18); Bilirubin, Total 1.33 mg/dL (0.2-1.0); CO2 22.8 mmol/L (21.0-32.0); CREATININE 1.8 mg/dL (0.70-1.30); Calcium 9.1 mg/dL (8.5-10.1); Chloride 107 mmol/L (98-107); Estimated GFR 36.43 (mL/min/1.73m2); Glucose 138 mg/dL (74-106); Magnesium 1.9 mg/dL (1.8-2.4); NT-proBNP 2375 pg/mL (<300); Potassium 3.9 mmol/L (3.5-5.1); Sodium 142 mmol/L (136-145); Total Protein 6.9 g/dL (6.4-8.2); Troponin I 39 ng/L (<or=76)
[2024-03-10] VITALS (73 sets, daily range): BP systolic 95–136; BP diastolic 51–83; PULSE 68–121; RESP 16–25; TEMP 36.6–37.6; O2SAT 94–100
--- NOTE | 2024-03-10 | DI.CT_ITS ---
Exam(s) CT CHEST WO EXAM: CT CHEST WO CLINICAL HISTORY: ? pleural effusion. TECHNIQUE: Imaging protocol: Axial computed tomography images were obtained and coronal and sagittal reformatted images were created and reviewed. Computer aided detection (CAD) was utilized. CONTRAST MATERIAL: Noncontrast COMPARISON: CR XR CHEST 2V PA LATERAL from 07/19/2023 CR,XR XR PORTABLE CHEST AP from 03/09/[address] ABDOMEN PELVIS CTA from 03/10/2024 FINDINGS: Pulmonary parenchyma: Significant left lung atelectasis. Scarring bilaterally, anteriorly adjacent t o the pleural plaques. No suspicious nodules. Interstitial changes: None. Emphysema: None. Tracheobronchial tree: No mucous plugging. No bronchiectasis . Pleura: Large left pleural effusion. Small right pleural effusion. Calcified pleural plaques. No p neumothorax. Heart: The heart is mildly dilated. The coronary arteries show moderate calcifications. Aortic karla ve prosthesis. Mitral annular calcifications. Aorta: Ascending aorta measures 4.6 cm. Moderate atherosclerotic changes. Lymph nodes: No enlarged lymph nodes. Bones: Degenerative changes are seen. No evidence of compression fracture. Sternal wires. Upper abdomen: Unremarkable. Soft tissues: Unremarkable. IMPRESSION: Exam limited by lack of IV contrast. Large left pleural effusion and significant left lower lobe atelectasis. Pneumonia or mass not exclu ded. Small right pleural effusion. RADIATION DOSE DELIVERED: 1,617.84mGy.cm Total DLP 1,617.84mGy.cm Total DLP DATA REPOSITORY: All CT scans at this facility are submitted to the National Radiology Data Registry (NRDR) Dose Index Registry (DIR) with the [employer] ([employer]). RADIATION OPTIMIZATION: All CT scans at this facility use at least one of these dose optimization te chniques: automated exposure control; mA and/or kV adjustment per patient size (includes targeted exa ms where dose is matched to clinical indication); or iterative reconstruction. Cyst ports and
--- NOTE | 2024-03-10 | DI.CT_ITS ---
Exam(s) CT ABDOMEN PELVIS CTA EXAM: CT ABDOMEN PELVIS CTA CLINICAL HISTORY: GI bleed. TECHNIQUE: Imaging Protocol: Axial CT angiography was performed with multi-slice acquisition and m ulti-planar and/or 3D reconstructions. CONTRAST MATERIAL: Intravenous: Omnipaque 350 Contrast volume:80 mL Oral: / no COMPARISON: CT CT ABDOMEN PELVIS W from 07/19/2023 FINDINGS: Vascular Structures: Celiac [place]:No evidence of stenosis. SMA: No evidence of stenosis. Renal Arteries: No evidence of stenosis. Aorta: Maximal dimension 3 cm distally. Moderate atherosclerotic calcifications. No dissection. No significant stenosis. Iliac Arteries: Atherosclerotic calcifications. Approximate 50 percent narrowing the origin of the le ft common iliac artery. Common Femoral Arteries: Atherosclerotic calcifications. No evidence of significant stenosis. Soft Tissues:Small fat containing left inguinal hernia. Small fat containing umbilical hernia. Lung bases:Large left and small right pleural effusion. Significant left basilar atelectasis. Bilat eral calcified pleural plaques. Liver: Normal size. Normal density. No measurable mass. Gallbladder and biliary tract: Lithiasis. No gallbladder wall thickening. No biliary dilation. Pancreas: Normal density, no abnormal calcifications or inflammatory process. Spleen: Normal. Kidneys: Normal size, contour and axis. No obstructive uropathy. No masses seen. There are few small nonobstructing stones in the right kidney. Adrenal glands: No masses seen. Bladder: Bilateral diverticula. Mild wall thickening. No evidence of calculi. No evidence of mass . Bowel: No site of active GI bleeding demonstrated. No obstruction or bowel wall thickening. Divertic ulosis. No evidence of diverticulitis. Moderate to increased quantity of stool. Appendix normal. Peritoneal cavity: No ascites. No focal collection. No mesenteric inflammatory response. Bones: No acute findings. Lymph nodes: Within normal limits. Reproductive: Enlarged prostate. IMPRESSION: No site of active GI bleeding is demonstrated. Diverticulosis the evidence of diverticulitis. Increased quantity of stool. Nonobstructing right renal calculi. Atherosclerotic changes of the aorta without significant aneurysm or stenosis. Approximate 50 percent narrowing of the proximal left common iliac artery. RADIATION DOSE DELIVERED: 1,617.84mGy.cm Total DLP DATA REPOSITORY: All CT scans at this facility are submitted to the National Radiology Data Registry (NRDR) Dose Index Registry (DIR) with the [employer] (ACR). RADIATION OPTIMIZATION: All CT scans at this facility use at least one of these dose optimization te chniques: automated exposure control; mA and/or kV adjustment per patient size (includes targeted exa ms where dose is matched to clinical indication); or iterative reconstruction.
[2024-03-10 00:05] LABS: D-Dimer 2150 ng/mlFEU (<500)
[2024-03-10] MEDS: Omnipaque 350 MG/ML 100 ML BTL IJ (00:54)
[2024-03-10] MEDS: Normal Saline - Diluent 50 ML VIAL IJ (00:55)
--- NOTE | 2024-03-10 01:10 | DI.VRAD_ITS ---
PROCEDURE INFORMATION: Exam: XR Chest Exam date and time: 03/09/2024 11:39 PM Age: 83 years old Clinical indication: Other: Chest pain TECHNIQUE: Imaging protocol: Radiologic exam of the chest. Views: 1 view. COMPARISON: XR PORTABLE CHEST AP 11/28/2023 11:01 PM FINDINGS: Lungs: See Pleural spaces finding. Pleural spaces: Large left pleural effusion, new from prior study. Cannot exclude underlying parenchymal disease. Small right pleural effusion. Pleural plaques again noted. Heart/Mediastinum: No cardiomegaly. Bones/joints: No acute abnormality. IMPRESSION: Pleural effusions as above. Dictated and Authenticated by: Janell Archer MD. Ordering:KENAN Hernandez MD
--- NOTE | 2024-03-10 01:19 | DI.VRAD_ITS ---
PROCEDURE INFORMATION: Exam: CTA Abdomen and Pelvis With Contrast Exam date and time: 03/10/2024 12:27 AM Age: 83 years old Clinical indication: Other: Gi bleed TECHNIQUE: Imaging protocol: Computed tomographic angiography of the abdomen and pelvis with contrast. Exam focused on the arteries. 3D rendering (Not supervised by radiologist): MIP and/or 3D reconstructed images were created by the technologist. Contrast material: OMNI 350; Contrast volume: 80 ml; Contrast route: INTRAVENOUS (IV); COMPARISON: CT ABDOMEN PELVIS W 07/19/2023 9:44 AM FINDINGS: Lungs: CT scan of the chest dictated separately. Aorta: Abdominal aorta tortuous and ectatic to 3 cm infrarenally. Celiac trunk and mesenteric arteries: No occlusion or significant stenosis. Renal arteries: No occlusion or significant stenosis. Right iliac arteries: No occlusion or significant stenosis. Left iliac arteries: No occlusion or significant stenosis. Other arteries: Extensive arterial calcifications. Liver: No focal hepatic lesion seen. Gallbladder and biliary ducts: Cholelithiasis. Pancreas: No evidence for acute pancreatitis. Spleen: Splenic granulomas. Adrenal glands: Adrenal thickening. Kidneys and ureters: Nonobstructing right renal calculi and/or renal vascular calcifications. No hydronephrosis. Stomach and bowel: No evidence for active gastrointestinal hemorrhage at this time. No intestinal obstruction is evident. Retained fecal material is present in the colon. Colonic diverticula. Mild rectal thickening with adjacent stranding. Retained fecal material throughout the colon. Correlate clinically for history of constipation. Appendix: No evidence of appendicitis. Intraperitoneal space: No free air. Lymph nodes: No acute abnormality. Urinary bladder: Bladder diverticula. Reproductive: Enlarged prostate with calcifications. Bones/joints: No acute fracture. Soft tissues: Unremarkable. IMPRESSION: 1. No active gastrointestinal hemorrhage appreciated at this time. 2. Mild rectal thickening with adjacent stranding most suggestive of proctitis. Neoplasm not excluded. Follow-up as clinically warranted. 3. Additional findings as above. 4. Additional studies dictated separately. Dictated and Authenticated by: Janell Archer MD. Ordering:KENAN Hernandez MD
--- NOTE | 2024-03-10 01:19 | DI.VRAD_ITS ---
PROCEDURE INFORMATION: Exam: CT Chest Without Contrast; Diagnostic Exam date and time: 03/10/2024 12:27 AM Age: 83 years old Clinical indication: Other: ? Pleural effusion TECHNIQUE: Imaging protocol: Diagnostic computed tomography of the chest without contrast. 3D rendering (Not supervised by radiologist): MIP and/or 3D reconstructed images were created by the technologist. COMPARISON: No relevant prior studies are available for comparison. FINDINGS: Limitations: No intravenous contrast was administered, limiting evaluation for some pathologies. Lungs: Extensive consolidation/atelectasis in the left lower lobe. Scarring/atelectasis in both lungs. Pleural spaces: Large left and moderate right pleural effusion. Extensive bilateral calcified pleural plaques. Heart: No pericardial effusion. Lymph nodes: Nonspecific mediastinal lymph nodes. Vasculature: Arterial calcifications. Coronary artery calcifications. 4.6 cm ascending thoracic aortic aneurysm. Intraperitoneal space: CT scan of the abdomen and pelvis dictated separately. Bones/joints: No acute pertinent abnormality appreciated. Soft tissues: No acute pertinent abnormality appreciated. IMPRESSION: 1. Bilateral pleural effusions. 2. Consolidation/atelectasis in the left lower lobe. Pneumonia not excluded. Follow-up advised. 3. Ascending thoracic aortic aneurysm. 4. Additional findings as above. 5. Additional studies dictated separately. Dictated and Authenticated by: Janell Archer MD. Ordering:KENAN Hernandez MD
[2024-03-10 01:34] LABS: Troponin I 80 ng/L (<or=76)
--- NOTE | 2024-03-10 02:36 | HPE_ITS ---
Date of service: 03/10/24 Time of Service: 02:36 Assessment and Plan Assessment and plan (1) Acute blood loss anemia: Start date: 03/10/24 Status: Acute Assessment and plan: This is an 83-year-old woman who has had an extensive evaluation over the last 6 months and does not want further evaluation for blood loss anemia. He also has myelodysplastic syndrome and does see the transfusion center once a week with transfusion of red blood cells weekly if his hemoglobin threshold is reached. He had a sudden change in his hemoglobin since his last check last week and did have dark stools. This does happen occasionally even though he is off Coumadin. He did start 2 baby aspirin only the last 2 days. This will be held. He did receive 2 units of packed red blood cells and feels better. He usually has lightheadedness and always seems to have intermittent mouth/jaw and neck with left shoulder discomfort associated with his anemia. Imaging was unrevealing except for possible thickening of the rectal wall which can be followed up by surgery if patient allows. He does have shortness of breath and lightheadedness with a profusion which will be evaluated by surgery with possible diagnostic/therapeutic thoracentesis. He has never had a thoracentesis. Patient want to be treated with minimal intervention but will continue with weekly follow-up at the infusion center which has been helpful. At some point this may be stopped if he is not improving and quality of life changes. He is a DNR with trial of intubation. (2) Upper GI bleed: Start date: 03/10/24 Status: Acute Assessment and plan: Presumed by dark blood and intermittently recently on 2 baby aspirin. Extensive endoscopies have not found a source of bleeding. Patient does not want further investigation by surgery but should have these to be counseled by surgery on the CT finding in the rectal area. (3) Myelodysplastic syndrome: Status: Chronic Assessment and plan: Continue follow-up with [facility] hematology oncology and weekly transfusions center visits with transfusion with RBCs as needed. He is not on specific therapy for this problem. This is complicated by intermittent GI acute blood loss. Patient is a DNR. (4) Pleural effusion: Status: Acute Assessment and plan: This is been mentioned to the patient in the past when at [facility] but he has never had thoracentesis. With his shortness of breath recently and large left pleural effusion, he is open to at least therapeutic thoracentesis today. His platelet count is above 100. He is off anticoagulation except for baby aspirin prior to presentation. (5) Elevated troponin level not due to acute coronary syndrome: Start date: 03/10/24 Status: Acute Assessment and plan: Troponins elevated and trending upward which will be trended further. There is limited intervention even if patient is having acute cardiac ischemia but does not appear to be the case. This most likely is demand ischemia from his acute anemia. (6) Atrial fibrillation: Status: Chronic Assessment and plan: This has been a recent diagnosis and patient is rate controlled on metoprolol. He is not a candidate for anticoagulation having been on Coumadin up to 6 months ago and recently on 2 baby aspirin which would not be therapeutic. Continue metoprolol for rate control. History of Present Illness History of Present Illness Chief Complaint: Lightheadedness with neck, jaw and left arm pain at rest with awakening. Narrative: This is an 83-year-old male patient has a history of intermittent GI bleed without source identified having seen surgery at [facility] and [facility], presenting to the ED because of awakening with moderate to severe burning in his throat with jaw and left arm pain. The symptoms have been going on for the last 6 months but usually self resolve and are associated with acute anemia which also has been occurring the last 6 months. The patient has been seen weekly at the infusion center and transfuse if his hemoglobin was below a threshold having not received blood this last week. He does have f myelodysplastic syndrome (MDS) which is causing anemia associated with GI blood loss anemia. He been off Coumadin for the last 6 months but did restart to baby aspirin the last 2 days per the instruction of [facility]. He felt lightheaded the day prior to presentation, and this was only with change in position. He has been having intermittent jaw/teeth, neck and left shoulder blade pain the last 6 months usually worsening with his anemia. He never did have chest pain. In the ED, after evaluation he was found to have severe anemia once again but heme-negative stools. He was on anticoagulation with Coumadin for mechanical aortic valve replacement 30 years ago and this was the only medicine he was on up to 6 months ago. He was recently diagnosed with atrial fibrillation and has had a pleural effusion which has not been treated with thoracentesis in the last 6 months but was mentioned when he was hospitalized at [facility]. The patient has been off Coumadin but still having to have intermittent transfusions at this is thought to be mostly secondary to myelodysplastic syndrome. This episode is like his last where he had a sudden drop in his hemoglobin and most likely is from his GI system. His family and the patient are not interested in further evaluation for GI bleed or source of bleeding but are open to transfusion as has been happening weekly if needed. He was given 2 units of packed red blood cells which was initiated in the ED. His troponin was elevated and will be trended and is thought to be secondary to cardiac strain from his anemia. The family and patient were not interested in engaging with [facility]. His cardiac evaluation earlier in the year supposedly was negative for any occlusive coronary artery disease. He does have a stable thoracic arctic aneurysm and has had no back pain. There is no evidence of this worsening with the patient oxygenating well. [facility] was consulted on this issue while the patient was in the ED and had nothing to offer. He is not a surgical candidate. Patient was agreeable to admission for transfusion we will trend troponins. If he does worsen with cardiac symptoms there is little intervention that would be helpful if he wishes to be not aggressive and is not a candidate for anticoagulation. His aspirin which was just initiated will not be continued. He is a DNR. Review of Systems Narrative: 13 point review of systems otherwise unrevealing or stable. Patient denies any chest pain at rest. Patient does have intermittent ankle swelling with his anemia he does take Lasix as needed. Black tarry stools in the recent week but not upon presentation. [facility] All Active Problems (Updated 03/10/24 @ 02:39 by Kian Stacy) Elevated troponin level not due to acute coronary syndrome (Acute) Pleural effusion (Acute) Atrial fibrillation (Chronic) Chronic anticoagulation (Chronic) Myelodysplastic syndrome (Chronic) Anemia (Chronic) Encounter for blood transfusion (Acute) Anemia (Chronic) H/O mechanical aortic valve replacement (Chronic) Diverticulosis of colon without diverticulitis (Chronic) Acute blood loss anemia (Acute) Upper GI bleed (Acute) 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 ear (Acute) Sensorineural hearing loss (SNHL) of right ear with restricted hearing of left ear (Acute) Sensorineural hearing loss of combined sites, bilateral (Acute 08/03/16) Medical History DNR (do not resuscitate) Not sure about intubation, +treat, +transfer, +abx, +IV fluids Advanced care planning/counseling discussion Palliative care encounter Atrial flutter Prosthetic cardiac valve vegetation Intracranial hemorrhage Discharge planning issues diverticulosis adenoma colon polyp Prosthetic Aortic Valve Overweight Hearing loss bilat Surgical History H/O prosthetic aortic valve replacement redo of aortic valve hernia/hydrocele repair Appendectomy Aortic valve replaced Social History Smoking/Tobacco Use Status: Current-Occasional Smoking risk assessment performed?: Yes Alcohol Intake: current Alcohol Intake frequency: holidays/special occasions only Alcohol type: wine Drug use: Never Substance use type: does not use Housing: house Do you feel safe at home: Yes Do you feel safe in your relationship?: Yes Meds Allergies and Home Medications Allergies Allergy/AdvReac Type Severity Reaction Status Date / Time PEACH SKINS AdvReac Other (See Uncoded 03/09/24 23:15 Comment) Home Medications ?Medication ?Instructions ?Recorded ?Confirmed ?Type ferrous sulfate 325 mg (65 mg 325 mg PO .every other 11/22/23 03/09/24 History iron) tablet (iron) metoprolol succinate 100 mg 150 mg (1.5 x 100 mg) PO DAILY #30 12/01/23 03/09/24 Rx tablet,extended release 24 hr tabs pantoprazole 40 mg tablet,delayed 40 mg PO BID #180 tabs 12/01/23 03/09/24 Rx release sucralfate 1 gram tablet 1 g PO AC & HS #120 tabs 12/01/23 03/09/24 Rx Exam Narrative Exam Narrative: General: Patient appears appropriate for age, moderately obese, alert and oriented x 3 and in no acute distress. He is very talkative. HEENT: Normocephalic, eyes with pupils equal and reactive to light symmetrically, extraocular movement tachycardia sclera anicteric. Oropharynx with moist mucosa. Neck: Supple without JVD. Back: Stooped posture without CVA tenderness. Lungs: Fair aeration and clear to auscultation percussion with no focalizing rales or rhonchi. No expiratory wheeze. Decreased aeration over left base more than right. Heart: Regular rate and rhythm with 3/6 to 4/6 systolic murmur left arm warm with sternal scar. No gallops or rubs. Abdomen: Obese contour, soft and nontender to palpation no palpable hepatosplenomegaly. No guarding and left lower quadrant and no rebound. Bowel sounds positive in all quadrants. Genitalia/rectal: Exam deferred. Patient did have rectal exam revealing heme negative stools in the ED. Extremities: Without clubbing, cyanosis or pitting edema. Slight nonpitting edema over ankles. Good capillary refill. Skin: Pale, warm and dry. No bruising. Neuro: Cranial nerves II through XII gross intact with patient hard of hearing, no focalizing motor deficits. No tremor. Psych: Normal affect and mood. No abnormal thought processes. Remote and recent memory grossly intact. Results Imaging Imaging Studies: Exam: XR Chest Exam date and time: 03/09/2024 11:39 PM Age: 83 years old Clinical indication: Other: Chest pain COMPARISON: XR PORTABLE CHEST AP 11/28/2023 11:01 PM FINDINGS: Lungs: See Pleural spaces finding. Pleural spaces: Large left pleural effusion, new from prior study. Cannot exclude underlying parenchymal disease. Small right pleural effusion. Pleural plaques again noted. Heart/Mediastinum: No cardiomegaly. Bones/joints: No acute abnormality. IMPRESSION: Pleural effusions as above. Exam: CTA Abdomen and Pelvis With Contrast Exam date and time: 03/10/2024 12:27 AM Age: 83 years old Clinical indication: Other: Gi bleed COMPARISON: CT ABDOMEN PELVIS W 07/19/2023 9:44 AM FINDINGS: Lungs: CT scan of the chest dictated separately. Aorta: Abdominal aorta tortuous and ectatic to 3 cm infrarenally. Celiac trunk and mesenteric arteries: No occlusion or significant stenosis. Renal arteries: No occlusion or significant stenosis. Right iliac arteries: No occlusion or significant stenosis. Left iliac arteries: No occlusion or significant stenosis. Other arteries: Extensive arterial calcifications. Liver: No focal hepatic lesion seen. Gallbladder and biliary ducts: Cholelithiasis. Pancreas: No evidence for acute pancreatitis. Spleen: Splenic granulomas. Adrenal glands: Adrenal thickening. Kidneys and ureters: Nonobstructing right renal calculi and/or renal vascular calcifications. No hydronephrosis. Stomach and bowel: No evidence for active gastrointestinal hemorrhage at this time. No intestinal obstruction is evident. Retained fecal material is present in the colon. Colonic diverticula. Mild rectal thickening with adjacent stranding. Retained fecal material throughout the colon. Correlate clinically for history of constipation. Appendix: No evidence of appendicitis. Intraperitoneal space: No free air. Lymph nodes: No acute abnormality. Urinary bladder: Bladder diverticula. Reproductive: Enlarged prostate with calcifications. Bones/joints: No acute fracture. Soft tissues: Unremarkable. IMPRESSION: 1. No active gastrointestinal hemorrhage appreciated at this time. 2. Mild rectal thickening with adjacent stranding most suggestive of proctitis. Neoplasm not excluded. Follow-up as clinically warranted. 3. Additional findings as above. 4. Additional studies dictated separately. Exam: CT Chest Without Contrast; Diagnostic Exam date and time: 03/10/2024 12:27 AM Age: 83 years old Clinical indication: Other: ? Pleural effusion COMPARISON: No relevant prior studies are available for comparison. FINDINGS: Limitations: No intravenous contrast was administered, limiting evaluation for some pathologies. Lungs: Extensive consolidation/atelectasis in the left lower lobe. Scarring/atelectasis in both lungs. Pleural spaces: Large left and moderate right pleural effusion. Extensive bilateral calcified pleural plaques. Heart: No pericardial effusion. Lymph nodes: Nonspecific mediastinal lymph nodes. Vasculature: Arterial calcifications. Coronary artery calcifications. 4.6 cm ascending thoracic aortic aneurysm. Intraperitoneal space: CT scan of the abdomen and pelvis dictated separately. Bones/joints: No acute pertinent abnormality appreciated. Soft tissues: No acute pertinent abnormality appreciated. IMPRESSION: 1. Bilateral pleural effusions. 2. Consolidation/atelectasis in the left lower lobe. Pneumonia not excluded. Follow-up advised. 3. Ascending thoracic aortic aneurysm. 4. Additional findings as above. 5. Additional studies dictated separately. Labs 03/09/24 23:15 03/09/24 23:15 Labs: Laboratory Results - last 24 hr 03/09/24 03/10/24 23:15 01:10 WBC 4.33 L RBC 1.80 L Hgb 5.1 L* Hct 18.6 L* MCV 103 H MCH 28.3 MCHC 27.4 L RDW 18.8 H Plt Count 131 MPV 10.7 Immature Gran % 0.7 Neutrophils % 68.8 Lymphocytes % 23.6 Monocytes % 6.7 Eosinophils % 0.0 Basophils % 0.2 Nucleated RBC % 1.6 H Absolute Neutrophils 2.98 Absolute Lymphocytes 1.02 L Absolute Monocytes 0.29 Absolute Eosinophils 0.00 Absolute Basophils 0.01 RBC Morphology See Below Hypochromasia 2+ Poikilocytosis 3+ PT 12.7 H INR 1.3 H APTT 22.8 L D-Dimer 2150 H Sodium 142 Potassium 3.9 Chloride 107 Carbon Dioxide 22.8 Anion Gap 12.2 H BUN 35 H Creatinine 1.8 H Est GFR (CKD-EPI 2020) 36.43 Glucose 138 H Calcium 9.1 Magnesium 1.9 Total Bilirubin 1.33 H AST 35 ALT 21 Alkaline Phosphatase 86 Troponin I 39 80 H* NT-Pro-B Natriuret Pep 2375 H Total Protein 6.9 Albumin 3.1 L ABO/Rh B Positive Antibody Screen NEGATIVE Crossmatch See Detail Last Vital Signs Temp 36.9 C 03/10/24 02:30 Pulse 96 H 03/10/24 02:30 Resp 22 03/10/24 02:30 BP 109/74 03/10/24 02:30 Pulse Ox 99 03/10/24 02:30 Time Spent Time spent with Patient: >75 minutes Time was spent: preparing to see the patient(eg.review tests), obtaining and/or reviewing separately otained hiistory, ordering medications,tests, procedures, referring, communicating with other health md do resident urgent care, indepentently interpreting results, counseling the patient and care coordination
[2024-03-10 02:56] LABS: Troponin I 214 ng/L (<or=76)
[2024-03-10 04:23] LABS: Source Nasal/Nares
[2024-03-10 04:56] LABS: COVID-19 PCR Negative (Negative)
[2024-03-10 05:09] LABS: Bilirubin Negative (Negative); Blood Negative (Negative); Clarity Clear (Clear); Glucose Negative (Negative); Ketones Negative (Negative); Leukocyte Esterase Negative (Negative); Nitrite Negative (Negative); Specific Gravity 1.015 (1.005-1.025); Urobilinogen 0.2 mg/dL (Up to 0.2); pH 5.5 (5-8)
--- NOTE | 2024-03-10 06:10 | W.PC.ACHO ---
Registration Status: Primary Language: Preferred Language: ED Information & Data Chief Complaint Chest Pain 03/09/24 23:32 Triage Note BIBA, with pain in the chest 03/09/24 23:09 . Pt states that he feels that his throat was closing. has not felt well in the last few days. Dizzy earlier and diaphoretic. BGL 177. Shallow breaths. GI bleed per family, no abd pain. mechanical valve. Medical / Surgical History (Last Reviewed 03/10/24 @ 02:36 by Kian Stacy) DNR (do not resuscitate) Advanced care planning/counseling discussion Palliative care encounter Atrial flutter Prosthetic cardiac valve vegetation Intracranial hemorrhage Discharge planning issues diverticulosis adenoma colon polyp Prosthetic Aortic Valve Overweight Hearing loss (Last Reviewed 03/10/24 @ 02:36 by Kian Stacy) H/O prosthetic aortic valve replacement redo of aortic valve hernia/hydrocele repair Appendectomy Aortic valve replaced Most Recent Vital Signs Temperature 37.0 C 03/10/24 05:06 Temperature Source Tympanic 03/10/24 05:06 Pulse 68 03/10/24 05:06 Pulse Rhythm Irregular 03/10/24 04:37 Pulse 90 03/10/24 04:16 Respiratory Rate 20 03/10/24 05:06 Respiratory Effort Normal, Non-Labored, Short of Breath 03/10/24 04:37 Respiratory Depth Normal 03/10/24 04:37 Respiratory Pattern Normal 03/10/24 04:37 Blood Pressure 120/81 03/10/24 05:06 Blood Pressure Mean 83 03/10/24 04:16 Blood Pressure Position Sitting 03/09/24 23:09 Pulse Oximetry 96 03/10/24 05:06 Oxygen Delivery Method Room Air 03/10/24 05:06 Oxygen Flow Rate 0 03/10/24 05:06 Pain Level 0 03/10/24 04:37 Comment intitiation vitals for PRBC unit #2 03/10/24 02:40 Allergies PEACH SKINS Adverse Reaction (Uncoded 03/09/24 23:15) Other (See Comment) MAKES MOUTH PUCKER Precautions Isolation Standard precaution 03/09/24 23:14 Active Medications Generic Name Dose Route Start Last Admin Trade Name Freq PRN Reason Stop Dose Admin Sodium Chloride 50 ml 03/10/24 01:00 03/10/24 00:55 Normal Saline - Diluent 50 Ml Vial IJ 50 ml .FOR DI USE LIANET Administration IV IV Catheter Type [Left Forearm Saline Lock ] IV Catheter Type [Right Saline Lock Antecubital] IV Catheter Gauge [Left 18 Forearm] IV Catheter Gauge [Right 18 Antecubital] Diet Orders Category Date Time Status Heart Healthy Eating [DIET] Nutrition 03/10/24 Breakfast Active Diagnostics 03/10/24 03/10/24 03/10/24 Range/Units 05:35 05:00 04:20 WBC Pending (4.4-10.8) 10^3/uL RBC Pending (4.36-5.78) 10^6/uL Hgb Pending (13.5-17.5) g/dL Hct Pending (40.0-50.0) % MCV Pending (80-95) fL MCH Pending (27.0-33.0) pg MCHC Pending (32.0-36.0) % RDW Pending (11.8-14.1) % Plt Count Pending (130-400) 10^3/uL MPV Pending (8.0-11.0) fL Immature Gran % % Neutrophils % % Lymphocytes % % Monocytes % % Eosinophils % % Basophils % % Nucleated RBC % (0.0-0.3) % Absolute Neutrophils (1.2-6.7) 10^3/uL Absolute Lymphocytes (1.2-3.4) 10^3/uL Absolute Monocytes (0.1-0.8) 10^3/uL Absolute Eosinophils (0.0-0.7) 10^3/uL Absolute Basophils (0.0-0.2) 10^3/uL RBC Morphology Hypochromasia Poikilocytosis PT Pending (9.1-11.1) sec INR Pending (0.9-1.1) APTT (23.6-32.8) sec D-Dimer (<500) ng/mlFEU Sodium Pending (136-145) mmol/L Potassium Pending (3.5-5.1) mmol/L Chloride Pending (98-107) mmol/L Carbon Dioxide Pending (21.0-32.0) mmol/L Anion Gap Pending (3-11) mmol/L BUN Pending (7-18) mg/dL Creatinine Pending (0.70-1.30) mg/dL Est GFR (CKD-EPI 2020) Pending (mL/min/1.73m2) Glucose Pending (74-106) mg/dL Calcium Pending (8.5-10.1) mg/dL Magnesium Pending (1.8-2.4) mg/dL Total Bilirubin Pending (0.2-1.0) mg/dL AST Pending (15-37) U/L ALT Pending (16-63) U/L Alkaline Phosphatase Pending (46-116) U/L Troponin I Pending (<or=76) ng/L NT-Pro-B Natriuret Pep (<300) pg/mL Total Protein Pending (6.4-8.2) g/dL Albumin Pending (3.4-5.0) g/dL Urine Color Yellow (Yellow) Urine Clarity Clear (Clear) Urine pH 5.5 (5-8) Ur Specific [place] 1.015 (1.005-1.025) Urine Protein Trace (Neg-Trace) mg/dL Urine Ketones Negative (Negative) mg/dL Urine Blood Negative (Negative) Urine Nitrite Negative (Negative) Urine Bilirubin Negative (Negative) Urine Urobilinogen 0.2 (Up to 0.2) mg/dL Ur Leukocyte Esterase Negative (Negative) Urine Glucose Negative (Negative) mg/dL COVID-19 Source Nasal/Nares SARS-CoV-2 (PCR) Negative (Negative) ABO/Rh Antibody Screen Crossmatch 03/10/24 03/10/24 03/09/24 Range/Units 02:29 01:10 23:15 WBC 4.33 L (4.4-10.8) 10^3/uL RBC 1.80 L (4.36-5.78) 10^6/uL Hgb 5.1 L* (13.5-17.5) g/dL Hct 18.6 L* (40.0-50.0) % MCV 103 H (80-95) fL MCH 28.3 (27.0-33.0) pg MCHC 27.4 L (32.0-36.0) % RDW 18.8 H (11.8-14.1) % Plt Count 131 (130-400) 10^3/uL MPV 10.7 (8.0-11.0) fL Immature Gran % 0.7 % Neutrophils % 68.8 % Lymphocytes % 23.6 % Monocytes % 6.7 % Eosinophils % 0.0 % Basophils % 0.2 % Nucleated RBC % 1.6 H (0.0-0.3) % Absolute Neutrophils 2.98 (1.2-6.7) 10^3/uL Absolute Lymphocytes 1.02 L (1.2-3.4) 10^3/uL Absolute Monocytes 0.29 (0.1-0.8) 10^3/uL Absolute Eosinophils 0.00 (0.0-0.7) 10^3/uL Absolute Basophils 0.01 (0.0-0.2) 10^3/uL RBC Morphology See Below Hypochromasia 2+ Poikilocytosis 3+ PT 12.7 H (9.1-11.1) sec INR 1.3 H (0.9-1.1) APTT 22.8 L (23.6-32.8) sec D-Dimer 2150 H (<500) ng/mlFEU Sodium 142 (136-145) mmol/L Potassium 3.9 (3.5-5.1) mmol/L Chloride 107 (98-107) mmol/L Carbon Dioxide 22.8 (21.0-32.0) mmol/L Anion Gap 12.2 H (3-11) mmol/L BUN 35 H (7-18) mg/dL Creatinine 1.8 H (0.70-1.30) mg/dL Est GFR (CKD-EPI 2020) 36.43 (mL/min/1.73m2) Glucose 138 H (74-106) mg/dL Calcium 9.1 (8.5-10.1) mg/dL Magnesium 1.9 (1.8-2.4) mg/dL Total Bilirubin 1.33 H (0.2-1.0) mg/dL AST 35 (15-37) U/L ALT 21 (16-63) U/L Alkaline Phosphatase 86 (46-116) U/L Troponin I 214 H* 80 H* 39 (<or=76) ng/L NT-Pro-B Natriuret Pep 2375 H (<300) pg/mL Total Protein 6.9 (6.4-8.2) g/dL Albumin 3.1 L (3.4-5.0) g/dL Urine Color (Yellow) Urine Clarity (Clear) Urine pH (5-8) Ur Specific [place] (1.005-1.025) Urine Protein (Neg-Trace) mg/dL Urine Ketones (Negative) mg/dL Urine Blood (Negative) Urine Nitrite (Negative) Urine Bilirubin (Negative) Urine Urobilinogen (Up to 0.2) mg/dL Ur Leukocyte Esterase (Negative) Urine Glucose (Negative) mg/dL COVID-19 Source SARS-CoV-2 (PCR) (Negative) ABO/Rh B Positive Antibody Screen NEGATIVE Crossmatch See Detail Intake and Output - 24 Hour Total 03/09/24 23:02 thru 03/10/24 04:37 Intake Total 620 Balance 620 Weight 81.783 kg Intake: IV 20 Blood Product 600 Rbc Leuko Reduced Unit 300 [id number] Rbc Leuko Reduced Unit 300 [id number] Falls Risk Assessment History of Falls No History 03/10/24 04:37 Contributing Factors No Factors 03/10/24 04:37 Ambulatory Aids Uses ambulatory device 03/10/24 04:37 Tubes/Lines W/no contributing factors 03/10/24 04:37 Gait Evaluation W/no contributing factors 03/10/24 04:37 Cognition No cognitive impairment 03/10/24 04:37 Fall Total Score 35 03/10/24 04:37 Level of Risk Moderate Risk 03/10/24 04:37 Problems (Last Reviewed 03/10/24 @ 02:36 by Kian Stacy) Elevated troponin level not due to acute coronary syndrome (Acute) Pleural effusion (Acute) Atrial fibrillation (Chronic) Myelodysplastic syndrome (Chronic) Acute blood loss anemia (Acute) Upper GI bleed (Acute) v v v v v v v v v Sending and/or Receiving Nurses: Please use comment section below to note any information pertinent to the patient hand-off not included above. Information / Comments: axo x 4. came with sob, tachy for the last few days. felt like his throat was closing. Pleural effusion left greater than right. received 2 units PRBC's. improved heart rate. h/h was low at 5. heart is irregular tho with a-fib. 18g lac and 18 rac. dnr. Report received from: salvador tang
[2024-03-10 06:56] LABS: HCT 26.1 % (40.0-50.0); HGB 7.5 g/dL (13.5-17.5); MCH 28.4 pg (27.0-33.0); MCHC 28.7 % (32.0-36.0); MCV 99 fL (80-95); MPV 10.5 fL (8.0-11.0); Platelet Count 117 10^3/uL (130-400); RBC 2.64 10^6/uL (4.36-5.78); RDW-SD 71.3 fL
[2024-03-10 07:05] LABS: INR 1.3 (0.9-1.1); Prothrombin Time 12.7 sec (9.1-11.1)
--- NOTE | 2024-03-10 07:15 | RT.EKG_ITS ---
APPROVED REPORT Exam: Resting ECG Reason for Exam: increasing troponin Patient Location: I HR:91 bpm ECG Measurements Heart Rate 91 AXIS DE [id number] P [id number] QRSd 63 QRS -7 QT 482 T 175 QTc 594 Conclusion Atrial flutter...A-rate 227 Nonspecific T abnormalities, lateral leads...T <-0.10mV, I aVL V5 V6 Prolonged QT interval...QTc >500mS
[2024-03-10 07:20] LABS: ALT 28 U/L (16-63); AST 50 U/L (15-37); Albumin 3.3 g/dL (3.4-5.0); Alkaline Phosphatase 92 U/L (46-116); Anion Gap 11.8 mmol/L (3-11); BUN 37 mg/dL (7-18); Bilirubin, Total 2.17 mg/dL (0.2-1.0); CO2 23.2 mmol/L (21.0-32.0); CREATININE 1.6 mg/dL (0.70-1.30); Calcium 9.2 mg/dL (8.5-10.1); Chloride 108 mmol/L (98-107); Estimated GFR 41.96 (mL/min/1.73m2); Glucose 123 mg/dL (74-106); Magnesium 2.1 mg/dL (1.8-2.4); Potassium 4.1 mmol/L (3.5-5.1); Sodium 143 mmol/L (136-145)
[2024-03-10 07:21] LABS: Troponin I 2310 ng/L (<or=76)
[2024-03-10] MEDS: Sucralfate 1 GM TAB PO ×4 (07:21→21:14)
[2024-03-10] MEDS: Normal Saline Flush 10 ML SYR IVP ×2 (07:22→19:39)
[2024-03-10 07:29] LABS: RDW 20.1 % (11.8-14.1)
[2024-03-10] MEDS: Pantoprazole 40 MG TABCR PO ×2 (08:33→19:39)
--- NOTE | 2024-03-10 09:41 | PDOC.CMIN ---
Date of service: 03/10/24 Time of Service: 09:42 Care Management Initial Assmt Initial Assessment Reason for Hospitalization: anemia Functional Status/Living Situation Patient Presentation: Abrahan was out of the room having a thoracentesis when CM attempted to meet with him. His daughter Jenna was present and CM was able to converse with her, known to CM from a previous admission. Jenna explained that Abrahan has been doing well at home. He has not required a transfusion since December and has been stable. He was recently started on baby Aspirin as he has a mechanical heart valve and anticoagulation is preferred. When the symptomatic anemia was identified however, it was discontinued. Jenna stated that, per provider, the risk of bleeding outweighed the potential benefit for stroke prevention. Abrahan is retired and lives in [place] with his Jessy. He is independent at baseline and does not receive any community services. 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) Instrumental Activities of Daily Living (ADLs): Independent Medications Medication Management: No Issues/Barriers identified Physical Functioning/Mobility Assistive Device: none Advance Directives Advance Directives: Do you have an Advance Directive: Y 10/04/20 08:56 AD On File at [facility]: Y 10/04/20 08:56 Date Asked 02/07/24 02/07/24 11:09 AD Date Reviewed 02/04/24 02/15/24 11:33 COLST On File at [facility] No 11/24/23 16:54 COLST Date Scanned Code Status Resuscitation Status DNR Insurance Coverage/Financial Issues Insurance: Medicare [facility] supplement Care Team Visit Care Team Role Provider Type Rafiq El MD Primary Care Provider NON-[facility] STAFF PHYSICIAN Jaclyn Ryan, DO Other Providers OSTEOPATHIC DOCTOR Mary Buckner MD Emergency Provider [facility] STAFF PHYSICIAN Kian Stacy Admit Provider NON-[facility] STAFF PHYSICIAN Attending Provider Discharge Potential Discharge Needs: PCP F/U Appt Anticipated Barriers to Discharge: None Identified Patient/Family Education Needs: Review discharge instructions, discuss Ask Me Three Transportation: Private vehicle Plan: Anticipate Abrahan will be discharged home, with no new services, when medically cleared. He will follow up with his PCP and plan of care and transport with family. CM will follow and continue to assess for discharge needs PFSH All Active Problems (Updated 03/10/24 @ 13:02 by Johnathan Miles) DVT prophylaxis (Acute) Elevated troponin level not due to acute coronary syndrome (Acute) Pleural effusion (Acute) Atrial fibrillation (Chronic) Chronic anticoagulation (Chronic) Myelodysplastic syndrome (Chronic) Anemia (Chronic) Encounter for blood transfusion (Acute) Anemia (Chronic) H/O mechanical aortic valve replacement (Chronic) Diverticulosis of colon without diverticulitis (Chronic) Acute blood loss anemia (Acute) Upper GI bleed (Acute) 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 ear (Acute) Sensorineural hearing loss (SNHL) of right ear with restricted hearing of left ear (Acute) Sensorineural hearing loss of combined sites, bilateral (Acute 08/03/16) Medical History (Updated 03/10/24 @ 13:02 by Johnathan Miles) CKD (chronic kidney disease) stage 3, GFR 30-59 ml/min DNR (do not resuscitate) Not sure about intubation, +treat, +transfer, +abx, +IV fluids Advanced care planning/counseling discussion Palliative care encounter Atrial flutter Prosthetic cardiac valve vegetation Intracranial hemorrhage Discharge planning issues diverticulosis adenoma colon polyp Prosthetic Aortic Valve Overweight Hearing loss bilat Surgical History H/O prosthetic aortic valve replacement redo of aortic valve hernia/hydrocele repair Appendectomy Aortic valve replaced Social History Smoking/Tobacco Use Status: Current-Occasional Smoking risk assessment performed?: Yes Alcohol Intake: current Alcohol Intake frequency: holidays/special occasions only Alcohol type: wine Drug use: Never Substance use type: does not use Housing: house Do you feel safe at home: Yes Do you feel safe in your relationship?: Yes SDOH(Care Management) Screening Will the Patient Participate in the Screening?: Yes Do you worry about having a steady place to live?: no Problems where you live: no known problems In the past 12 months, have you had to go without electric, gas, oil or water in your home?: no Have you or anyone in your house had to go without enough food to eat?: no Has lack of transportation kept you from medical appointments or from doing things needed for daily living?: no Has anyone in your support network made you feel unsafe for any reason?: no
[2024-03-10 10:28] LABS: Lab Add On Test DONE
[2024-03-10 11:20] LABS: Troponin I 1949 ng/L (<or=76)
[2024-03-10 11:36] LABS: Ferritin 107 ng/mL (26-388); Folate > 20.0 ng/mL (8.6-20.0); Vitamin B12 1848 pg/mL (193-986)
--- NOTE | 2024-03-10 12:44 | PGE_ITS ---
Date of Service Date of service: 03/10/24 Time of Service: 08:00 Assessment and Plan Assessment and plan (1) Acute blood loss anemia: Start date: 03/10/24 Status: Acute Assessment and plan: With history of extensive evaluation over the last 6 months with upper/lower/capsule as well as myelodysplastic syndrome. He has been trans fusion dependant for months, but much improved after deciding to stop warfarin. Repeat bleed this week after starting aspirin. I recommend he avoid this. Improved after 2 units overnight, give an additional unit given active heart disease with bump in troponins. (2) Upper GI bleed: Start date: 03/10/24 Status: Acute Assessment and plan: Presumed by dark blood and intermittently recently on 2 baby aspirin. As above extensive endoscopies have not found a source of bleeding and patient does not want further investigation. This time thickening on rectal area noted on CT. I'm not sure of the significance of this, surgery was consulted to review work up options with patient. (3) Myelodysplastic syndrome: Status: Chronic Assessment and plan: Continue follow-up with [facility] [place] [place] and weekly transfusions center visits with transfusion with RBCs as needed. He is not on specific therapy for this problem other than aranesp, which is due today. (4) Pleural effusion: Status: Acute Assessment and plan: This is been mentioned to the patient in the past when at [facility] but he has never had thoracentesis. Shortness of breath did improve with transfusion. Surgery consult pending, may consider thoracentesis. He should not have elevated bleeding risk with this procedure. (5) Elevated troponin level not due to acute coronary syndrome: Start date: 03/10/24 Status: Acute Assessment and plan: Troponins elevated trended up, no change on repeat EKG, no longer and chest symptoms. I think this is secondary to stable CAD with worse anemia, repeat troponin later in AM showed trend down as expected. Additional transfusion as above. No additional evaluation or therapy for now. (6) Atrial fibrillation: Status: Chronic Assessment and plan: Atrial flutter this AM on EKG. This has been a recent diagnosis and patient is rate controlled on metoprolol. He is not a candidate for anticoagulation. (7) DVT prophylaxis: Status: Acute Assessment and plan: scds (8) CKD (chronic kidney disease) stage 3, GFR 30-59 ml/min: Assessment and plan: at baseline, borderline 3a/3b Subjective Subjective Patient reports: tolerating a regular diet and voiding w/o difficulty; denies nausea, vomiting or fever Interval history since last seen: Troponin 2310 at 6:18am He feels better, no longer and chest/neck/shoulder tightness after he got the transfusion overnight. He isn't short of breath now either. he confirms he took aspirin for 2 days prior to coming in. No abdominal pain. No other new medications. Exam Narrative Exam Narrative: General: Alert and oriented x 3 and in no acute distress, talkative. Lungs: Clear to auscultation without wheeze or rales, except decreased aeration over left base Heart: Regular rate and rhythm with 2-3/6 systolic murmur. No gallops or rubs. Abdomen: Soft and nontender Extremities: Without clubbing, cyanosis or pitting edema. warm. Objective Last Vital Signs Temp 37.3 C 03/10/24 10:39 Pulse 89 03/10/24 10:39 Resp 16 03/10/24 10:39 BP 104/68 03/10/24 10:39 Pulse Ox 97 03/10/24 10:39 Laboratory Results - last 24 hr 03/09/24 03/10/24 03/10/24 23:15 01:10 02:29 WBC 4.33 L RBC 1.80 L Hgb 5.1 L* Hct 18.6 L* MCV 103 H MCH 28.3 MCHC 27.4 L RDW 18.8 H Plt Count 131 MPV 10.7 Immature Gran % 0.7 Neutrophils % 68.8 Lymphocytes % 23.6 Monocytes % 6.7 Eosinophils % 0.0 Basophils % 0.2 Nucleated RBC % 1.6 H Absolute Neutrophils 2.98 Absolute Lymphocytes 1.02 L Absolute Monocytes 0.29 Absolute Eosinophils 0.00 Absolute Basophils 0.01 RBC Morphology See Below Hypochromasia 2+ Poikilocytosis 3+ PT 12.7 H INR 1.3 H APTT 22.8 L D-Dimer 2150 H Sodium 142 Potassium 3.9 Chloride 107 Carbon Dioxide 22.8 Anion Gap 12.2 H BUN 35 H Creatinine 1.8 H Est GFR (CKD-EPI 2020) 36.43 Glucose 138 H Calcium 9.1 Magnesium 1.9 Ferritin Total Bilirubin 1.33 H AST 35 ALT 21 Alkaline Phosphatase 86 Troponin I 39 80 H* 214 H* NT-Pro-B Natriuret Pep 2375 H Total Protein 6.9 Albumin 3.1 L Vitamin B12 Folate Urine Color Urine Clarity Urine pH Ur Specific [place] Urine Protein Urine Ketones Urine Blood Urine Nitrite Urine Bilirubin Urine Urobilinogen Ur Leukocyte Esterase Urine Glucose COVID-19 Source SARS-CoV-2 (PCR) Add-On Test Request ABO/Rh B Positive Antibody Screen NEGATIVE Crossmatch See Detail 03/10/24 03/10/24 03/10/24 04:20 05:00 06:18 WBC 4.30 L RBC 2.64 L Hgb 7.5 L D Hct 26.1 L MCV 99 H D MCH 28.4 MCHC 28.7 L RDW 20.1 H Plt Count 117 L MPV 10.5 Immature Gran % Neutrophils % Lymphocytes % Monocytes % Eosinophils % Basophils % Nucleated RBC % Absolute Neutrophils Absolute Lymphocytes Absolute Monocytes Absolute Eosinophils Absolute Basophils RBC Morphology Hypochromasia Poikilocytosis PT 12.7 H INR 1.3 H APTT D-Dimer Sodium 143 Potassium 4.1 Chloride 108 H Carbon Dioxide 23.2 Anion Gap 11.8 H BUN 37 H Creatinine 1.6 H Est GFR (CKD-EPI 2020) 41.96 Glucose 123 H Calcium 9.2 Magnesium 2.1 Ferritin 107 Total Bilirubin 2.17 H AST 50 H ALT 28 Alkaline Phosphatase 92 Troponin I 2310 H* NT-Pro-B Natriuret Pep Total Protein 7.0 Albumin 3.3 L Vitamin B12 1848 H Folate > 20.0 H Urine Color Yellow Urine Clarity Clear Urine pH 5.5 Ur Specific [place] 1.015 Urine Protein Trace Urine Ketones Negative Urine Blood Negative Urine Nitrite Negative Urine Bilirubin Negative Urine Urobilinogen 0.2 Ur Leukocyte Esterase Negative Urine Glucose Negative COVID-19 Source Nasal/Nares SARS-CoV-2 (PCR) Negative Add-On Test Request ABO/Rh Antibody Screen Crossmatch 03/10/24 03/10/24 10:45 Unknown WBC RBC Hgb Hct MCV MCH MCHC RDW Plt Count MPV Immature Gran % Neutrophils % Lymphocytes % Monocytes % Eosinophils % Basophils % Nucleated RBC % Absolute Neutrophils Absolute Lymphocytes Absolute Monocytes Absolute Eosinophils Absolute Basophils RBC Morphology Hypochromasia Poikilocytosis PT INR APTT D-Dimer Sodium Potassium Chloride Carbon Dioxide Anion Gap BUN Creatinine Est GFR (CKD-EPI 2020) Glucose Calcium Magnesium Ferritin Total Bilirubin AST ALT Alkaline Phosphatase Troponin I 1948 H* NT-Pro-B Natriuret Pep Total Protein Albumin Vitamin B12 Folate Urine Color Urine Clarity Urine pH Ur Specific [place] Urine Protein Urine Ketones Urine Blood Urine Nitrite Urine Bilirubin Urine Urobilinogen Ur Leukocyte Esterase Urine Glucose COVID-19 Source SARS-CoV-2 (PCR) Add-On Test Request DONE ABO/Rh Antibody Screen Crossmatch Time Spent with Patient Time Spent with Patient: >50 minutes Time was spent: preparing to see the patient(eg.review tests), obtaining and/or reviewing separately otained hiistory, ordering medications,tests, procedures, referring, communicating with other health childcare provider, indepentently interpreting results, counseling the patient and care coordination
--- NOTE | 2024-03-10 13:28 | W.SURGCON ---
Date of service: 03/10/24 Time of Service: 13:28 Assessment and Plan Assessment and plan (1) H/O mechanical aortic valve replacement: Status: Chronic Assessment and plan: echo 12/06 There is a small mobile mass, approximately 1 cm which flips into the aorta with systole, back into the heart in diastole. was on ASA only. Stopped due to myelodysplastic d/o. (2) Elevated troponin level not due to acute coronary syndrome: Status: Acute (3) Atrial fibrillation: Status: Chronic (4) Acute blood loss anemia: Status: Acute Assessment and plan: pt received 2 units PRBC (5) Anemia: Status: Chronic (6) Myelodysplastic syndrome: Status: Chronic Assessment and plan: - no blood thinners/asa/nsaids -continued chronic transfusions -feritin nl 20 mins spent in direct pt care and 40 in non face to face time (7) Pleural effusion: Status: Acute Assessment and plan: new onset. hx of asbestos exposure Will be sent for cytology and fluid studies. Risks: reaction to medication/bleeding/infection/ptx/damage to lung/continued drainage. (8) CKD (chronic kidney disease) stage 3, GFR 30-59 ml/min: History of Present Illness Narrative: Pt has a hx of a myelodysplastic syndrome and does see the transfusion center once a week with transfusion of red blood cells weekly if his hemoglobin threshold is reached. Pt has had mult EGD/CE. He does have a hx of a mechanical heart valve. he is off Coumadin. He did start 2 baby aspirin only the last 2 days. Pt had an egd/ce 08/05. EGD-nl. CE- diverticula and minute polyps. There was nl / no cancer in rectal vault. -CT w/out oral contrast is not a good evaluation of the colon. He does have shortness of breathwith a left pleural effusion. He does not have a HX of heart failure. He has never required a thoracentesis. He did not have an effusion on CXR in Sept. He was in the [employer] for 4 yrs in the 60's. He used large amounts of asbestos in the [place] and had significant exposure. -He has not had a TE to confirm if this is a clot. He is not a candidate for anti-coag at this time. ECHO: 12/06 onclusion Study quality is fair Normal left ventricular wall thickness and chamber size. Ejection fraction is estimated visually at 55 to 60%. No segmental wall motion abnormalities are appreciated Right ventricle appears normal in size and function Both atria are mildly enlarged There is a mechanical aortic valve prosthesis. Mean gradient is 17 mmHg. There is a small mobile mass, approximately 1 cm which flips into the aorta with systole, back into the heart in diastole. There is trace central regurgitation Mitral annular calcification. Thickened mitral leaflets. Moderate mitral regurgitation Moderate to severe tricuspid regurgitation Estimated right ventricular systolic pressure is 46 mmHg _ I did review all his CT's/labs/echo/prior EGD/CE PFSH All Active Problems Pneumothorax, iatrogenic (Acute) DVT prophylaxis (Acute) Elevated troponin level not due to acute coronary syndrome (Acute) Pleural effusion (Acute) Atrial fibrillation (Chronic) Chronic anticoagulation (Chronic) Myelodysplastic syndrome (Chronic) Anemia (Chronic) Encounter for blood transfusion (Acute) Anemia (Chronic) H/O mechanical aortic valve replacement (Chronic) Diverticulosis of colon without diverticulitis (Chronic) Acute blood loss anemia (Acute) Upper GI bleed (Acute) 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 ear (Acute) Sensorineural hearing loss (SNHL) of right ear with restricted hearing of left ear (Acute) Sensorineural hearing loss of combined sites, bilateral (Acute 08/03/16) Medical History CKD (chronic kidney disease) stage 3, GFR 30-59 ml/min DNR (do not resuscitate) Not sure about intubation, +treat, +transfer, +abx, +IV fluids Advanced care planning/counseling discussion Palliative care encounter Atrial flutter Prosthetic cardiac valve vegetation Intracranial hemorrhage Discharge planning issues diverticulosis adenoma colon polyp Prosthetic Aortic Valve Overweight Hearing loss bilat Surgical History H/O prosthetic aortic valve replacement redo of aortic valve hernia/hydrocele repair Appendectomy Aortic valve replaced Social History Smoking/Tobacco Use Status: Current-Occasional Smoking risk assessment performed?: Yes Alcohol Intake: current Alcohol Intake frequency: holidays/special occasions only Alcohol type: wine Drug use: Never Substance use type: does not use Housing: house Do you feel safe at home: Yes Do you feel safe in your relationship?: Yes Exam Narrative Exam Narrative: PHYSICAL EXAM GENERAL APPEARANCE: Alert, healthy appearance, oriented, x 3,? in no acute distress HYDRATION: Well hydrated HEAD, EYES, EARS, NECK, THROAT: Head is normocephalic, pupils equal, round, reactive to light and accommodation, ocular movement intact, sclera clear and no jaundice. ?Dentition good repair LUNGS: normal respiration/normal chest excursion. ?decreased BS Left ?HEART: Regular rate and rhythm. no murmurs EXTREMITY: OA in small joints noted. ABDOMEN: soft and non-tender to palpation.? Results Last Vital Signs Temp 37.3 C 03/10/24 10:39 Pulse 89 03/10/24 10:39 Resp 16 03/10/24 10:39 BP 104/68 03/10/24 10:39 Pulse Ox 97 03/10/24 10:39 Labs 03/11/24 14:13 03/11/24 06:10 Labs: Laboratory Results - last 24 hr 03/09/24 03/10/24 03/10/24 23:15 01:10 02:29 WBC 4.33 L RBC 1.80 L Hgb 5.1 L* Hct 18.6 L* MCV 103 H MCH 28.3 MCHC 27.4 L RDW 18.8 H Plt Count 131 MPV 10.7 Immature Gran % 0.7 Neutrophils % 68.8 Lymphocytes % 23.6 Monocytes % 6.7 Eosinophils % 0.0 Basophils % 0.2 Nucleated RBC % 1.6 H Absolute Neutrophils 2.98 Absolute Lymphocytes 1.02 L Absolute Monocytes 0.29 Absolute Eosinophils 0.00 Absolute Basophils 0.01 RBC Morphology See Below Hypochromasia 2+ Poikilocytosis 3+ PT 12.7 H INR 1.3 H APTT 22.8 L D-Dimer 2150 H Sodium 142 Potassium 3.9 Chloride 107 Carbon Dioxide 22.8 Anion Gap 12.2 H BUN 35 H Creatinine 1.8 H Est GFR (CKD-EPI 2020) 36.43 Glucose 138 H Calcium 9.1 Magnesium 1.9 Ferritin Total Bilirubin 1.33 H AST 35 ALT 21 Alkaline Phosphatase 86 Troponin I 39 80 H* 214 H* NT-Pro-B Natriuret Pep 2375 H Total Protein 6.9 Albumin 3.1 L Vitamin B12 Folate Urine Color Urine Clarity Urine pH Ur Specific [place] Urine Protein Urine Ketones Urine Blood Urine Nitrite Urine Bilirubin Urine Urobilinogen Ur Leukocyte Esterase Urine Glucose COVID-19 Source SARS-CoV-2 (PCR) Add-On Test Request ABO/Rh B Positive Antibody Screen NEGATIVE Crossmatch See Detail 03/10/24 03/10/24 03/10/24 04:20 05:00 06:18 WBC 4.30 L RBC 2.64 L Hgb 7.5 L D Hct 26.1 L MCV 99 H D MCH 28.4 MCHC 28.7 L RDW 20.1 H Plt Count 117 L MPV 10.5 Immature Gran % Neutrophils % Lymphocytes % Monocytes % Eosinophils % Basophils % Nucleated RBC % Absolute Neutrophils Absolute Lymphocytes Absolute Monocytes Absolute Eosinophils Absolute Basophils RBC Morphology Hypochromasia Poikilocytosis PT 12.7 H INR 1.3 H APTT D-Dimer Sodium 143 Potassium 4.1 Chloride 108 H Carbon Dioxide 23.2 Anion Gap 11.8 H BUN 37 H Creatinine 1.6 H Est GFR (CKD-EPI 2020) 41.96 Glucose 123 H Calcium 9.2 Magnesium 2.1 Ferritin 107 Total Bilirubin 2.17 H AST 50 H ALT 28 Alkaline Phosphatase 92 Troponin I 2310 H* NT-Pro-B Natriuret Pep Total Protein 7.0 Albumin 3.3 L Vitamin B12 1848 H Folate > 20.0 H Urine Color Yellow Urine Clarity Clear Urine pH 5.5 Ur Specific [place] 1.015 Urine Protein Trace Urine Ketones Negative Urine Blood Negative Urine Nitrite Negative Urine Bilirubin Negative Urine Urobilinogen 0.2 Ur Leukocyte Esterase Negative Urine Glucose Negative COVID-19 Source Nasal/Nares SARS-CoV-2 (PCR) Negative Add-On Test Request ABO/Rh Antibody Screen Crossmatch 03/10/24 03/10/24 10:45 Unknown WBC RBC Hgb Hct MCV MCH MCHC RDW Plt Count MPV Immature Gran % Neutrophils % Lymphocytes % Monocytes % Eosinophils % Basophils % Nucleated RBC % Absolute Neutrophils Absolute Lymphocytes Absolute Monocytes Absolute Eosinophils Absolute Basophils RBC Morphology Hypochromasia Poikilocytosis PT INR APTT D-Dimer Sodium Potassium Chloride Carbon Dioxide Anion Gap BUN Creatinine Est GFR (CKD-EPI 2020) Glucose Calcium Magnesium Ferritin Total Bilirubin AST ALT Alkaline Phosphatase Troponin I 1949 H* NT-Pro-B Natriuret Pep Total Protein Albumin Vitamin B12 Folate Urine Color Urine Clarity Urine pH Ur Specific [place] Urine Protein Urine Ketones Urine Blood Urine Nitrite Urine Bilirubin Urine Urobilinogen Ur Leukocyte Esterase Urine Glucose COVID-19 Source SARS-CoV-2 (PCR) Add-On Test Request DONE ABO/Rh Antibody Screen Crossmatch
--- NOTE | 2024-03-10 13:29 | W.PM.OP ---
Operative Note Operative Note PRE-OP DIAGNOSIS: Left pleural effusion POST-OP DIAGNOSIS: same significant exposure to asbestos in the [place]. High risk for mesothelioma PROCEDURE: thorocentisis SURGEON: Jaclyn Ryan ANESTHESIA TYPE: Local By Surgeon Refer to Anesthesia Record ESTIMATED BLOOD LOSS: 1 PATHOLOGY: other COMPLICATIONS: None Patient was transported to: PACU Patient's condition: stable Procedure Description: Pt is here today for thoracentesis for symptoms of shortness of breath.? Chest x-ray was reviewed prior to beginning the procedure.? Informed consent was obtained explaining risks and benefits of the procedure, including but not limited to bleeding, infection, pneumothorax, recurrence, complications of anesthesia, and other unforetold complications. Timeout is performed prior to beginning the procedure. ? PROCEDURE:? The patient is brought to the procedure room and placed in the seated position.? Ultrasound is used to localize the pocket on the left chest.? The area is marked and then prepped and draped in the usual sterile fashion using a ChloraPrep scrub solution.? 10 cc's of 1% Lidocaine is used to anesthetize the T10 interspace. ? The small lupillo is made with a #11 blade.? The needle and catheter is then inserted over the top of the rib, aspirating as it is inserted.? The needle is then removed.? The catheter is then hooked up to the Vacutainer system and 2250 cc's of bloody- colored fluid is evacuated.? The catheter is removed; pressure is held.? Sterile compression dressing is applied. ? -PCXR is pd Date of Procedure: 03/10/24
--- NOTE | 2024-03-10 13:50 | PAPNONF_PTH ---
PATIENT: Umesh Smith LOC: [id number]#:[id number] AGE/SX: 83/M ROOM: 229 RE03/10/[address]: Kian Stacy : 1940 BED: A DIS: 03/12/2024 SPEC #: [id number] RECD: 03/10/24 16:07 STATUS: JIMENA REQ #: [id number] LULU: 03/10/24 13:[address]: Kian Stacy DEPT: [facility] Cytology RECD BY: Marlene Barrientos ENTERED: 03/10/24 16:09 SP TYPE: FARIDEH ISLAS DR: Rafiq El Laura M Tissues: 1 - BODY FLUID CYTO(NOT S/U/N/EM)[facility] Procedures: BODY FLUID CYTO(NOT SPU/UR/NIP/ENDOM)[facility] Comments: [id number] (TV = 55 ml, SENT FRESH) (REFRIGERATED)
--- NOTE | 2024-03-10 14:29 | DI.RAD_ITS ---
Exam(s) XR PORTABLE CHEST AP EXAM: XR PORTABLE CHEST AP CLINICAL HISTORY: Status postthoracentesis TECHNIQUE: 2D digital imaging was performed. COMPARISON: CR,XR XR PORTABLE CHEST AP from 03/09/[address] CHEST WO from 03/10/2024 FINDINGS: LUNGS: Status post left thoracentesis. No visible residual wall left pleural effusion. There is a s mall left pneumothorax visible laterally. Small right pleural effusion remains present. Calcified p leural plaques. HEART: Enlarged. Aortic valve prosthesis. AORTA: Normal diameter. BONES: Unremarkable for age. Soft tissues: Unremarkable. IMPRESSION: Small left pneumothorax status post thoracentesis. No visible residual effusion. DATA REPOSITORY: RADIATION DOSE DELIVERED:
[2024-03-10 14:30] LABS: Source: Pleural
[2024-03-10 14:32] LABS: Clarity Clear; Nucleated Cells 239 uL (0); Source Pleural
[2024-03-10 14:47] LABS: Mononuclear Cells 89 %; Polynuclear Cells 11 %
--- NOTE | 2024-03-10 15:02 | CHAPLAIN ---
Umesh is here for anemia. He wasn't in his room when I visited. I spoke with his daughter who said she remembered meeting me the last time her dad was here. She said Umesh is in the OR for a procedure. I will try to catch up with him later.
[2024-03-10] MEDS: Darbepoetin 300 MCG SYR SC (15:57)
[2024-03-10 16:13] LABS: HCT 26.2 % (40.0-50.0); HGB 7.9 g/dL (13.5-17.5)
[2024-03-10 22:12] LABS: Albumin, Body FLuid 1.3 g/dL (See Note); Glucose, Fluid 110 mg/dL (See Note)
[2024-03-10] MEDS: Metoprolol CR 50 MG TABCR 150 MG PO (23:24)
[2024-03-11] VITALS (12 sets, daily range): BP systolic 90–120; BP diastolic 63–83; PULSE 88–120; RESP 16–20; TEMP 36.4–37.9; O2SAT 90–99
[2024-03-11 06:45] LABS: HCT 26.6 % (40.0-50.0); MCH 28.5 pg (27.0-33.0); MCHC 30.1 % (32.0-36.0); MCV 95 fL (80-95); MPV 10.3 fL (8.0-11.0); Platelet Count 103 10^3/uL (130-400); RBC 2.81 10^6/uL (4.36-5.78); RDW 19.8 % (11.8-14.1); RDW-SD 66.5 fL
[2024-03-11 06:59] LABS: INR 1.4 (0.9-1.1); Prothrombin Time 13.3 sec (9.1-11.1)
[2024-03-11 07:08] LABS: ALT 27 U/L (16-63); AST 42 U/L (15-37); Albumin 2.7 g/dL (3.4-5.0); Alkaline Phosphatase 78 U/L (46-116); Anion Gap 10.8 mmol/L (3-11); BUN 30 mg/dL (7-18); Bilirubin, Total 2.29 mg/dL (0.2-1.0); CO2 22.2 mmol/L (21.0-32.0); CREATININE 1.4 mg/dL (0.70-1.30); Calcium 8.5 mg/dL (8.5-10.1); Chloride 109 mmol/L (98-107); Estimated GFR 49.25 (mL/min/1.73m2); Glucose 115 mg/dL (74-106); Magnesium 1.8 mg/dL (1.8-2.4); Potassium 3.7 mmol/L (3.5-5.1); Sodium 142 mmol/L (136-145); Total Protein 6.1 g/dL (6.4-8.2)
[2024-03-11] MEDS: Sucralfate 1 GM TAB PO ×4 (07:31→20:49)
--- NOTE | 2024-03-11 08:00 | DI.RAD_ITS ---
Exam(s) XR CHEST 2V PA LATERAL EXAM: XR CHEST 2V PA LATERAL CLINICAL HISTORY: ptx following thoro. f/u TECHNIQUE: 2D digital imaging was performed of the chest. Two images were obtained. PA and lateral views were obtained. COMPARISON: CR,XR XR PORTABLE CHEST AP from 11/28/2023 CR XR PORTABLE CHEST AP from 03/10/[address] CHEST WO from 03/10/2024 FINDINGS: MEDIASTINUM: Normal. HEART: There is an aortic valve replacement. Heart size appears within normal limits. PULMONARY VASCULATURE: Normal. LUNGS: No focal consolidations are present. PLEURAL SPACE: There is now a moderate sized left pleural effusion. There is a persistent left pneum othorax which is small but has shown slight increase in size compared to the prior examination. Ther e is a small right pleural effusion. No right pneumothorax. There again seen bilateral calcified pl eural plaques. BONE:Within normal limits for the patient's age. Sternal wires are in place. OTHER FINDINGS:Normal. IMPRESSION: 1. Interval increase in size of the left pleural effusion which is now moderate in size. Persistent small right pleural effusion. 2. Slight interval increase in size of the known left pneumothorax. DATA REPOSITORY: RADIATION DOSE DELIVERED:
[2024-03-11] MEDS: Pantoprazole 40 MG TABCR PO ×2 (08:28→20:49)
[2024-03-11] MEDS: Ferrous Sulfate 325 MG TAB PO (08:28)
[2024-03-11] MEDS: Metoprolol CR 50 MG TABCR 150 MG PO (08:28)
--- NOTE | 2024-03-11 08:36 | DI.VRAD_ITS ---
PROCEDURE INFORMATION: Exam: XR Chest Exam date and time: 03/11/2024 7:55 AM Age: 83 years old Clinical indication: Ptx following thoro. F/u; Prior surgery; Surgery date: Post-operative (0-2 days) TECHNIQUE: Imaging protocol: Radiologic exam of the chest. Views: 2 views. COMPARISON: CR XR PORTABLE CHEST AP 03/10/2024 2:21 PM FINDINGS: Lungs: Increased interstitial lung markings noted without large consolidation. Ground-glass opacities noted bilaterally, similar to prior CT. Pleural spaces: Previously noted left pneumothorax is not well visualized but likely is partially replaced with fluid as air-fluid level is seen on the lateral view. There is a large left pleural effusion which has significantly increased in size since the prior examination. A small to moderate right pleural effusion noted. No large pneumothorax. Pleural plaques/postsurgical changes sternotomy wires are seen in place. Heart/Mediastinum: No cardiomegaly. Bones/joints: No acute osseous abnormality. IMPRESSION: 1. Large left pleural effusion significantly increased since prior examination, partially replacing the known pneumothorax. 2. Small to moderate right pleural effusion noted. 3. Patchy ground-glass opacities are stable in appearance. No large consolidation. Dictated and Authenticated by: Kelly Banks MD. Ordering:JANENE Anaya MD
[2024-03-11] MEDS: Normal Saline Flush 10 ML SYR IVP ×3 (09:25→22:37)
[2024-03-11 14:24] LABS: HCT 25.5 % (40.0-50.0); HGB 7.6 g/dL (13.5-17.5)
--- NOTE | 2024-03-11 15:24 | PGE_ITS ---
Date of Service Date of service: 03/11/24 Time of Service: 15:24 Assessment and Plan Assessment and plan (1) Acute blood loss anemia: Start date: 03/10/24 Status: Acute Assessment and plan: With history of extensive evaluation over the last 6 months with upper/lower/capsule as well as myelodysplastic syndrome. He has been trans fusion dependant for months, but much improved after deciding to stop warfarin. Admitted with repeat bleed this week after starting aspirin. I recommend he avoid this. Improved after 3 units, but down to 7.6 this afternoon, give another unit. (2) Upper GI bleed: Start date: 03/10/24 Status: Acute Assessment and plan: Presumed by dark blood and intermittently recently on 2 baby aspirin. As above extensive endoscopies have not found a source of bleeding and patient does not want further investigation. This time thickening on rectal area noted on CT. I'm not sure of the significance of this, but he is not interested in another colonoscopy. Monitor for blood in stool (3) Myelodysplastic syndrome: Status: Chronic Assessment and plan: Continue follow-up with [facility] hematology oncology and weekly transfusions center visits with transfusion with RBCs as needed. S/p aranesp 03/10. (4) Pleural effusion: Status: Acute Assessment and plan: This is been mentioned to the patient in the past when at [facility] but he has never had thoracentesis. Shortness of breath did improve with transfusion, further improved after thoracentesis. Fluid looks exudative, further studies pending. Unfortunately effusion reaccumulating rapidly, has small PTX. No further intervention for now. D/w Dr. Sparrow. (5) Elevated troponin level not due to acute coronary syndrome: Start date: 03/10/24 Status: Acute Assessment and plan: Troponins elevated trended up, no change on repeat EKG, no longer and chest symptoms. I think this is secondary to stable CAD with worse anemia, repeat troponin later in AM showed trend down as expected. No additional evaluation or therapy for now. he does not tolerate antiplatelet or anticoagulation. (6) Atrial fibrillation: Status: Chronic Assessment and plan: Atrial fibrillation/flutter. Rate high after missing metoprolol doses, now improved back on metoprolol. He is not a candidate for anticoagulation. (7) CKD (chronic kidney disease) stage 3, GFR 30-59 ml/min: Assessment and plan: at baseline, borderline 3a/3b, stable (8) Pneumothorax, iatrogenic: Status: Acute Assessment and plan: Small, little risk of tension per surgery, d/w Dr. Sparrow today. Symptoms improved. Monitor clinically, f/u CXR early next week if goes home. (9) DVT prophylaxis: Status: Acute Assessment and plan: scds Subjective Subjective Patient reports: denies shortness of breath Interval history since last seen: 24 hour: Had thoracentesis with Dr. Ryan He feels good. He felt breathing was much better after thoracentesis. No further chest pain. No bleeding, but hasn't had BM. Exam Narrative Exam Narrative: General: Alert and oriented x 3 and in no acute distress Lungs: Clear to auscultation without wheeze or rales, except decreased breath sounds left base Heart: Regular rate and rhythm with 2-3/6 systolic murmur. No gallops or rubs. Abdomen: Soft and nontender Extremities: Without clubbing, cyanosis or pitting edema. warm. Objective Last Vital Signs Temp 37 C 03/11/24 11:19 Pulse 112 H 03/11/24 11:19 Resp 16 03/11/24 11:19 BP 103/71 03/11/24 11:19 Pulse Ox 96 03/11/24 11:19 Laboratory Results - last 24 hr 03/10/24 03/10/24 03/11/24 13:50 16:00 06:10 WBC 5.50 RBC 2.81 L Hgb 7.9 L 8.0 L Hct 26.2 L 26.6 L MCV 95 D MCH 28.5 MCHC 30.1 L RDW 19.8 H Plt Count 103 L MPV 10.3 PT 13.3 H INR 1.4 H Sodium 142 Potassium 3.7 Chloride 109 H Carbon Dioxide 22.2 Anion Gap 10.8 BUN 30 H Creatinine 1.4 H Est GFR (CKD-EPI 2020) 49.25 Glucose 115 H Calcium 8.5 Magnesium 1.8 Total Bilirubin 2.29 H AST 42 H ALT 27 Alkaline Phosphatase 78 Total Protein 6.1 L Albumin 2.7 L Path Cons Comment 03/11/24 14:13 WBC RBC Hgb 7.6 L Hct 25.5 L MCV MCH MCHC RDW Plt Count MPV PT INR Sodium Potassium Chloride Carbon Dioxide Anion Gap BUN Creatinine Est GFR (CKD-EPI 2020) Glucose Calcium Magnesium Total Bilirubin AST ALT Alkaline Phosphatase Total Protein Albumin Path Cons Comment Time Spent with Patient Time Spent with Patient: >50 minutes Time was spent: preparing to see the patient(eg.review tests), obtaining and/or reviewing separately otained hiistory, ordering medications,tests, procedures, referring, communicating with other health outdoor emergency care technician, indepentently interpreting results, counseling the patient and care coordination
[2024-03-12 00:27] LABS: HCT 27.7 % (40.0-50.0); HGB 8.4 g/dL (13.5-17.5)
[2024-03-12 06:58] LABS: ALT 21 U/L (16-63); AST 36 U/L (15-37); Albumin 2.7 g/dL (3.4-5.0); Alkaline Phosphatase 73 U/L (46-116); Anion Gap 8.9 mmol/L (3-11); BUN 29 mg/dL (7-18); Bilirubin, Total 2.05 mg/dL (0.2-1.0); CO2 25.1 mmol/L (21.0-32.0); CREATININE 1.4 mg/dL (0.70-1.30); Calcium 8.8 mg/dL (8.5-10.1); Chloride 109 mmol/L (98-107); Estimated GFR 49.25 (mL/min/1.73m2); Glucose 121 mg/dL (74-106); Potassium 3.9 mmol/L (3.5-5.1); Sodium 143 mmol/L (136-145); Total Protein 6.1 g/dL (6.4-8.2)
[2024-03-12 07:31] VITALS: BP 109/80; PULSE 105; RESP 16; TEMP 36.3; O2SAT 98
--- NOTE | 2024-03-12 08:00 | DI.RAD_ITS ---
Exam(s) XR CHEST 2V PA LATERAL EXAM: XR CHEST 2V PA LATERAL CLINICAL HISTORY: ptx TECHNIQUE: 2D digital imaging was performed. Two views. COMPARISON: No exams were available for comparison FINDINGS: HEART: Heart partially obscured by pleural effusion. Valve prosthesis. Aorta: Not dilated. PULMONARY VASCULATURE: Mostly obscured by effusion. MEDIASTINUM: Unremarkable. LUNGS: Clear. PLEURAL SPACE: Interval increase in size of left pleural effusion, now moderate. Small pneumothorax remains present, unchanged from the most recent exam. Calcified pleural plaques again noted. Tiny r ight pleural effusion, unchanged. BONE:Sternal wires. SOFT TISSUES: Unremarkable. IMPRESSION: Stable size small left pneumothorax. Increased size of left pleural effusion, now moderate. DATA REPOSITORY: RADIATION DOSE DELIVERED:
[2024-03-12] MEDS: Normal Saline Flush 10 ML SYR IVP (08:13)
[2024-03-12] MEDS: Pantoprazole 40 MG TABCR PO (08:14)
[2024-03-12] MEDS: Metoprolol CR 50 MG TABCR 150 MG PO (08:14)
[2024-03-12] MEDS: Sucralfate 1 GM TAB PO ×2 (08:14→11:09)
--- NOTE | 2024-03-12 09:04 | DI.VRAD_ITS ---
PROCEDURE INFORMATION: Exam: XR Chest Exam date and time: 03/12/2024 7:57 AM Age: 83 years old Clinical indication: Other: Ptx TECHNIQUE: Imaging protocol: Radiologic exam of the chest. Views: 2 views. COMPARISON: CR XR CHEST 2V PA LATERAL 03/11/2024 7:55 AM FINDINGS: Lungs: Unremarkable. No consolidation. Pleural spaces: Unchanged small left apical pneumothorax. There is a moderate left pleural effusion. Heart/Mediastinum: prosthetic valve. No cardiomegaly. Bones/joints: Median sternotomy wires are present. IMPRESSION: 1. Unchanged small left apical pneumothorax. 2. Moderate left pleural effusion. Dictated and Authenticated by: Tracey Wilson MD. Ordering:JANENE Anaya MD
[2024-03-12 11:04] VITALS: BP 113/77; PULSE 112; RESP 16; TEMP 38.1; O2SAT 95
[2024-03-12 11:09] VITALS: TEMP 37.5
[2024-03-12] MEDS: Acetaminophen 325 MG TAB PO (11:09)
[2024-03-12 12:48] VITALS: TEMP 37.2
[2024-03-12 13:49] LABS: COVID-19 PCR Negative (Negative); Influenza A PCR Negative (Negative); Influenza B PCR Negative (Negative); RSV PCR Negative (Negative)
[2024-03-12 13:50] LABS: Source Nasopharynx
--- NOTE | 2024-03-12 14:58 | DSE_ITS ---
Date of service: 03/12/24 Time of Service: 14:58 DS: Diagnosis Discharge Diagnosis (1) H/O mechanical aortic valve replacement: Status: Chronic (2) Elevated troponin level not due to acute coronary syndrome: Status: Acute (3) Atrial fibrillation: Status: Chronic (4) Acute blood loss anemia: Status: Acute (5) Anemia: Status: Chronic (6) Myelodysplastic syndrome: Status: Chronic (7) Pleural effusion: Status: Acute Discharge Plan Disposition Patient Disposition: Home Condition: Improving Discharge Details Reason For Visit: Acute blood loss anemia, Pleural effusions Admit Date/Time: 03/10/24 02:51 Admit Provider: Kian Stacy Attending Provider: Kian Stacy Primary Care Provider: Rafiq El Hospital Course Hospital Course: 83 yo with MDS and multiple admissions for GI bleed of unclear source necessitating many transfusions until December 2023 when he made a decision to discontinue anticoaguation. He decided to trial on aspirin for 2 days and presented with left sided chest/shoulder/neck tightness and black stools. This chest tightness was the same presenting symptom he had with previous severe anemia. His hemoglobin was 5.1%. He was transfused two units overnight and on additional unit later in the first day. He did not have any additional bowel movements while admitted. His chest tightness went away after his initial tranfusion. His troponins increased as high as 2310 before decreasing, but he did not have ST elevations or depressions and his pain resolved, the troponin was felt secondary to stable heart disease in setting of acute anemia. He had an additional 4th unit on 03/11 pm after his hemoglobin drifted back down to 7.6%. It was 8.4% on discharge. Plan to follow as outpatient infusion. Transfuse one unit if hgb 7-8% and 2 units if <7%. His CT abd/pelvis did show rectal thickening, but he was not interested in repeating colonoscopy. He had a large pleaural effusion noted on admission CT along with a small right effusion. Surgery was consulted and performed therapeutic thoracentesis, which helped his symptoms. This was complicated by a small pneumothorax. He had daily CXR 03/10-. The pneumothorax stayed small and did not change from 03/11-. Follow up chest x-ray should be considered next week. The effusion looked transudative and did accumulate to a significant extent the day after thoracentesis. . He was in and out of atrial flutter with heart rate in the 130s 03/10-03/11. He had missed two doses of metoprolol and this was resumed with imrpovement in his heart rate. He was given his routine dose of Aranesp on 03/10 He had a low grade fever to 38.1 on 03/12 the morning of discharged, normalized with acetaminophen. He had no symptoms of localized infection. CXR that morning did not show new focal infiltrate. u/a and flu/covid/RSV done prior to discharge and results were negative. Home Meds and New Rx's Prescriptions: Continued ferrous sulfate [iron] 325 mg (65 mg iron) tablet 325 mg PO .every other Patient Comments: patient takes every other day sucralfate 1 gram Tablet 1 g PO AC & HS Qty: 120 0RF metoprolol succinate 100 mg tablet extended release 24 hr 150 mg PO DAILY Qty: 30 0RF pantoprazole 40 mg tablet,delayed release (DR/EC) 40 mg PO BID Qty: 180 0RF Discharge Instructions Instructions: Gastrointestinal Bleeding (DC) Additional Instructions: Avoid aspirin and anticoagulants for now You can talk with your PCP about considering another [place] [facility]. You should come back in for labs on Friday 04/14. We will try to set up tr ansfusion if you need it. Keep the Friday 03/17 appointment as well. If you get that chest/neck/arm pressure or worsening shortness of breath, come emergently to the hospital emergency room You have a little air outside your lung since you had the fluid removed from this area. This is small and did not get bigger from Wednesday to Wednesday before you left. Your primary care may order another x-ray next week. You had a low grade fever before you left. If you are getting more difficulty breathing or a high fever above 39 celcius (102 farenheit) you should come back in for evaluation. Stand Alone Forms: Nursing Discharge Form Referrals: Rafiq El MD [Primary Care Provider] - (Follow-up with PCP within 7 days of discharge please) Activity:: Activity as Tolerated Equipment/Supplies:: No Equipment Needed Diet:: Low Sodium Discharge Orders Discharge Orders: Discharge Order (Routine); Ordered 03/12/24 Ordered By: Roxana Burrell Other Ambulatory Orders: Complete Blood Count w/Diff (Routine) Timeframe: 2 Days Facility: [facility] - Location: Laboratory Outpatient - [facility] Ordered By: Johnathan Miles Complete Blood Count w/Diff (Routine) Timeframe: 2 Days Facility: [facility] - Location: Laboratory Outpatient - [facility] Ordered By: Johnathan Miles Discharge Data Discharge Date/Time-TO BE ENTERED AT DEPARTURE: 03/12/24 17:16 DS: Summary Time Spent with Patient providing and/or coordinating discharge services: Greater than 30 minutes Status at Discharge Functional status at discharge: uses cane/walker Overall status at discharge: patient is back to baseline Mental Status: mental status grossly normal Speech and Movement: speech and movement normal Mood: congruent mood Affect: normal affect Quality:SDOH Health Related Social Needs: Health related social needs details denied problems Exam Narrative Exam Narrative: General: Alert and oriented x 3 and in no acute distress Lungs: Clear to auscultation without wheeze or rales, except decreased breath sounds left base Heart: Regular rate and rhythm with 2-3/6 systolic murmur. No gallops or rubs. Abdomen: Soft and nontender Extremities: Without clubbing, cyanosis or pitting edema. warm. Psych Mental Status: mental status grossly normal Speech and Movement: speech and movement normal Mood: congruent mood Affect: normal affect DS: Data Vitals/I&O Vitals and I&O: Vital Signs Temperature 37.2 C 03/12/24 12:48 Temperature Source Temporal Artery Scan 03/12/24 12:48 Pulse 112 H 03/12/24 11:04 Pulse Rhythm Irregular 03/10/24 04:37 Pulse 90 03/10/24 04:16 Respiratory Rate 16 03/12/24 11:04 Respiratory Effort Normal, Non-Labored, Short of Breath 03/10/24 04:37 Respiratory Depth Normal 03/10/24 04:37 Respiratory Pattern Normal 03/10/24 04:37 Blood Pressure 113/77 03/12/24 11:04 Blood Pressure Mean 83 03/10/24 04:16 Blood Pressure Position Sitting 03/09/24 23:09 Pulse Oximetry 95 03/12/24 11:04 Oxygen Delivery Method Room Air 03/12/24 11:04 Oxygen Flow Rate 0 03/12/24 11:04 Pain Level 0 03/11/24 18:26 Comment RN notified of H vitals 03/12/24 11:04 Comment intitiation vitals for PRBC unit #2 03/10/24 02:40 Intake & Output 03/11/24 03/12/24 03/12/24 23:59 11:59 23:59 Intake Total 510 / 870 Balance 510 / 470 Intake: IV Blood Product 500 / 500 Rbc Leuko Reduced Unit 500 / 500 [id number] Other: Comment voids independently in toilet pt went to bathroom Data Completed and Pending Labs on day of discharge: Labs from last 24 hours 03/12/24 03/12/24 03/12/24 13:00 06:25 00:15 Hgb 8.4 L Hct 27.7 L Sodium 143 Potassium 3.9 Chloride 109 H Carbon Dioxide 25.1 Anion Gap 8.9 BUN 29 H Creatinine 1.4 H Est GFR (CKD-EPI 2020) 49.25 Glucose 121 H Calcium 8.8 Total Bilirubin 2.05 H AST 36 ALT 21 Alkaline Phosphatase 73 Total Protein 6.1 L Albumin 2.7 L COVID-19 Source Nasopharynx SARS-CoV-2 (PCR) Negative Influenza Type A (PCR) Negative Influenza Type B (PCR) Negative RSV (PCR) Negative ABO/Rh Antibody Screen Crossmatch 03/09/24 23:15 Hgb Hct Sodium Potassium Chloride Carbon Dioxide Anion Gap BUN Creatinine Est GFR (CKD-EPI 2020) Glucose Calcium Total Bilirubin AST ALT Alkaline Phosphatase Total Protein Albumin COVID-19 Source SARS-CoV-2 (PCR) Influenza Type A (PCR) Influenza Type B (PCR) RSV (PCR) ABO/Rh B Positive Antibody Screen NEGATIVE Crossmatch See Detail Preliminary micro results at discharge 03/10/24 13:50 Body Fluid Culture - Preliminary Pleural - Left PFSH All Active Problems Pneumothorax, iatrogenic (Acute) DVT prophylaxis (Acute) Elevated troponin level not due to acute coronary syndrome (Acute) Pleural effusion (Acute) Atrial fibrillation (Chronic) Chronic anticoagulation (Chronic) Myelodysplastic syndrome (Chronic) Anemia (Chronic) Encounter for blood transfusion (Acute) Anemia (Chronic) H/O mechanical aortic valve replacement (Chronic) Diverticulosis of colon without diverticulitis (Chronic) Acute blood loss anemia (Acute) Upper GI bleed (Acute) 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 ear (Acute) Sensorineural hearing loss (SNHL) of right ear with restricted hearing of left ear (Acute) Sensorineural hearing loss of combined sites, bilateral (Acute 08/03/16) Medical History CKD (chronic kidney disease) stage 3, GFR 30-59 ml/min DNR (do not resuscitate) Not sure about intubation, +treat, +transfer, +abx, +IV fluids Advanced care planning/counseling discussion Palliative care encounter Atrial flutter Prosthetic cardiac valve vegetation Intracranial hemorrhage Discharge planning issues diverticulosis adenoma colon polyp Prosthetic Aortic Valve Overweight Hearing loss bilat Surgical History H/O prosthetic aortic valve replacement redo of aortic valve hernia/hydrocele repair Appendectomy Aortic valve replaced Social History Smoking/Tobacco Use Status: Current-Occasional Smoking risk assessment performed?: Yes Alcohol Intake: current Alcohol Intake frequency: holidays/special occasions only Alcohol type: wine Drug use: Never Substance use type: does not use Housing: house Do you feel safe at home: Yes Do you feel safe in your relationship?: Yes Time Spent with Patient Time Spent with Patient: 45-69 minutes Time was spent: preparing to see the patient(eg.review tests), obtaining and/or reviewing separately otained hiistory, ordering medications,tests, procedures, referring, communicating with other health family day carer, indepentently interpreting results, counseling the patient and care coordination
[2024-03-12 15:40] VITALS: BP 111/70; PULSE 107; RESP 16; TEMP 37; O2SAT 98
[2024-03-12 16:13] LABS: Bilirubin Small (Negative); Blood Negative (Negative); Clarity Clear (Clear); Glucose Negative (Negative); Ketones Negative (Negative); Leukocyte Esterase Negative (Negative); Nitrite Negative (Negative); Specific Gravity 1.025 (1.005-1.025); pH 5.5 (5-8)
[2024-03-12 16:45] LABS: RBC 0-2 HPF (0-2); WBC 0-2 HPF (0-5)
[2024-03-12 16:46] LABS: Bacteria Few HPF (Negative); C & S Indicated? No; Casts Negative LPF (Negative); Crystals Negative HPF (Negative); Epithelial Cells Few HPF (Negative); Mucus Trace (Negative); Other Cells Negative (Negative)
--- NOTE | 2024-03-12 17:29 | PDOC.CMDIS ---
Date of service: 03/12/24 Time of Service: 17:29 LACE Index Scoring Tool Questions: Length of Stay (in days): 2 Was the patient admitted via the E.D.?: Yes Comorbidities: Liver or Renal Disease E.D. Visits: 6 Answers: Total Score: 14 Risk of Readmission: High Risk Care Management Discharge Plan Reason for Hospitalization: anemia Discharge Plan: Abrahan will be discharged home with no new services. He will follow up with his PCP and plan of care and transport with family. Patient/Family Education Needs: Review of discharge instructions, limitations, follow up plan, discuss Ask Me Three Services Needed at Discharge: Infusion Therapy SDOH Health Related Social Needs: Health related social needs details denied problems
[2024-03-13 08:45] LABS: Hematocrit, Body Fluid <3.0 %
== END 2024-03-12 17:16 | disposition home or self-care (01) | DRG 812 ==
LOC: ER 03-10 03:04 → MS 03-10 04:28
PROVIDERS: Family Medicine; Surgery; Admitting Provider Family Medicine; Emergency Provider Student in an Organized Health Care Education/Training Program; PCP Family Medicine; Visit Provider Family Medicine
PROC: 0W9B3ZX Drainage of Left Pleural Cavity, Percutaneous Approach, Diagnostic (ICD-10-PCS; CPT 32554; principal; 2024-03-10 12:15)
DX: D62 Acute posthemorrhagic anemia (principal); J90 Pleural effusion, not elsewhere classified; J95.811 Postprocedural pneumothorax; K92.1 Melena; D46.9 Myelodysplastic syndrome, unspecified; I48.0 Paroxysmal atrial fibrillation; N18.30 Chronic kidney disease, stage 3 unspecified; Z95.2 Presence of prosthetic heart valve; R74.8 Abnormal levels of other serum enzymes; Z87.898 Personal history of other specified conditions; K57.30 Diverticulosis of large intestine without perforation or abscess without bleeding; Z66 Do not resuscitate; R06.02 Shortness of breath
CPT/HCPCS: 32554; 00123; 36415; 36430; 71250; 80053; 82042; 85013; 85027; 86850; 86900; 86901; 86920; 87635; 87637; 93005; 96374; 99222; 99285; 99418; 71045; 71046; 74174; 81003; 81015; 81373; 82607; 82728; 82746; 83735; 83880; 83986; 84484; 85014; 85018; 85025; 85379; 85610; 85730; 87070; 87205; 88104; 89051; 93010; 99223; 99233; 99239; J0881; J2470; J3490; P9016

== ENCOUNTER 2024-03-14 01:58 | Outpatient (RCR) | payer MEDICARE, SELFPAY ==
[2024-02-13 00:27] VITALS: BP 148/95; PULSE 82; RESP 17; TEMP 36.4
[2024-02-18 07:59] LABS: Abs Immature Grans 0.02 10^3/uL (0.0-0.06); Absolute Basophil Count 0.01 10^3/uL (0.0-0.2); Absolute Monocyte Count 0.17 10^3/uL (0.1-0.8); Absolute Neutrophil Count 1.46 10^3/uL (1.2-6.7); Basophils % 0.4 %; HCT 36.5 % (40.0-50.0); HGB 10.1 g/dL (13.5-17.5); Immature Grans % 0.8 %; Lymphocytes % 35.2 %; MCH 28.5 pg (27.0-33.0); MCV 103 fL (80-95); MPV 11.1 fL (8.0-11.0); Monocytes % 6.6 %; Nucleated RBC 1.2 % (0.0-0.3); Platelet Count 113 10^3/uL (130-400); RBC 3.55 10^6/uL (4.36-5.78); RDW 19.5 % (11.8-14.1); RDW-SD 73.3 fL; WBC 2.56 10^3/uL (4.4-10.8)
[2024-02-18 08:01] LABS: MCHC 27.7 % (32.0-36.0)
[2024-02-18 08:13] LABS: ALT 23 U/L (16-63); AST 41 U/L (15-37); Albumin 3.6 g/dL (3.4-5.0); Alkaline Phosphatase 95 U/L (46-116); BUN 22 mg/dL (7-18); Bilirubin, Total 2.03 mg/dL (0.2-1.0); CREATININE 1.5 mg/dL (0.70-1.30); Calcium 9.4 mg/dL (8.5-10.1); Chloride 110 mmol/L (98-107); Estimated GFR 45.34 (mL/min/1.73m2); Glucose 132 mg/dL (74-106); Potassium 4.2 mmol/L (3.5-5.1); Sodium 147 mmol/L (136-145); Total Protein 7.8 g/dL (6.4-8.2)
[2024-02-25 07:33] LABS: Abs Immature Grans 0.01 10^3/uL (0.0-0.06); Absolute Basophil Count 0.01 10^3/uL (0.0-0.2); Absolute Eosinophil Count 0.01 10^3/uL (0.0-0.7); Absolute Lymphocyte Count 0.87 10^3/uL (1.2-3.4); Absolute Monocyte Count 0.16 10^3/uL (0.1-0.8); Absolute Neutrophil Count 0.76 10^3/uL (1.2-6.7); Basophils % 0.5 %; Eosinophils % 0.5 %; HGB 9.2 g/dL (13.5-17.5); Immature Grans % 0.5 %; Lymphocytes % 47.8 %; MCH 28.4 pg (27.0-33.0); MCHC 27.9 % (32.0-36.0); MCV 102 fL (80-95); MPV 10.9 fL (8.0-11.0); Monocytes % 8.8 %; Neutrophils % 41.9 %; Platelet Count 106 10^3/uL (130-400); RBC 3.24 10^6/uL (4.36-5.78); RDW 18.6 % (11.8-14.1); RDW-SD 70.6 fL
[2024-02-25] MEDS: Darbepoetin 300 MCG SYR SC (07:48)
[2024-02-25 07:49] LABS: ALT 22 U/L (16-63); AST 35 U/L (15-37); Albumin 3.3 g/dL (3.4-5.0); Alkaline Phosphatase 94 U/L (46-116); Anion Gap 6.6 mmol/L (3-11); BUN 20 mg/dL (7-18); Bilirubin, Total 1.61 mg/dL (0.2-1.0); CO2 27.4 mmol/L (21.0-32.0); CREATININE 1.5 mg/dL (0.70-1.30); Calcium 9.2 mg/dL (8.5-10.1); Chloride 110 mmol/L (98-107); Estimated GFR 45.34 (mL/min/1.73m2); Glucose 151 mg/dL (74-106); Potassium 4.3 mmol/L (3.5-5.1); Sodium 144 mmol/L (136-145); Total Protein 7.3 g/dL (6.4-8.2)
[2024-02-25 07:55] LABS: Diff Comment Diff Reviewed; Hypochromasia 1+
[2024-02-25 07:56] LABS: Poikilocytes 1+
[2024-02-25 08:04] LABS: WBC 1.82 10^3/uL (4.4-10.8)
[2024-03-03 07:32] LABS: Abs Immature Grans 0.03 10^3/uL (0.0-0.06); HCT 30.1 % (40.0-50.0); HGB 8.4 g/dL (13.5-17.5); MCH 28.8 pg (27.0-33.0); MCHC 27.9 % (32.0-36.0); MCV 103 fL (80-95); MPV 10.5 fL (8.0-11.0); Platelet Count 128 10^3/uL (130-400); RBC 2.92 10^6/uL (4.36-5.78); RDW 19.2 % (11.8-14.1); RDW-SD 71.9 fL; WBC 3.13 10^3/uL (4.4-10.8)
[2024-03-03 07:49] LABS: ALT 21 U/L (16-63); AST 32 U/L (15-37); Albumin 3.5 g/dL (3.4-5.0); Alkaline Phosphatase 98 U/L (46-116); BUN 30 mg/dL (7-18); Bilirubin, Total 1.37 mg/dL (0.2-1.0); CREATININE 1.5 mg/dL (0.70-1.30); Calcium 9.3 mg/dL (8.5-10.1); Chloride 107 mmol/L (98-107); Estimated GFR 45.34 (mL/min/1.73m2); Glucose 124 mg/dL (74-106); Potassium 4.3 mmol/L (3.5-5.1); Sodium 143 mmol/L (136-145); Total Protein 7.8 g/dL (6.4-8.2)
[2024-03-03 07:51] LABS: Absolute Lymphocyte Count 1.38 10^3/uL (1.2-3.4); Absolute Monocyte Count 0.09 10^3/uL (0.1-0.8); Absolute Neutrophil Count 1.66 10^3/uL (1.2-6.7); Atypical Lymphocytes % 3 %; Diff Comment Manual Differential
[2024-03-03 07:52] LABS: Hypochromasia 2+; Poikilocytes 3+; Polychromasia Present
[2024-03-03] MEDS: Darbepoetin 300 MCG SYR SC (08:01)
[2024-03-14 08:36] LABS: Abs Immature Grans 0.04 10^3/uL (0.0-0.06); Absolute Basophil Count 0.01 10^3/uL (0.0-0.2); Absolute Eosinophil Count 0.01 10^3/uL (0.0-0.7); Absolute Lymphocyte Count 0.78 10^3/uL (1.2-3.4); Absolute Monocyte Count 0.24 10^3/uL (0.1-0.8); Absolute Neutrophil Count 2.24 10^3/uL (1.2-6.7); Basophils % 0.3 %; Eosinophils % 0.3 %; HCT 29.1 % (40.0-50.0); HGB 8.5 g/dL (13.5-17.5); Immature Grans % 1.2 %; Lymphocytes % 23.5 %; MCHC 29.2 % (32.0-36.0); MCV 99 fL (80-95); MPV 10.4 fL (8.0-11.0); Monocytes % 7.2 %; Neutrophils % 67.5 %; Nucleated RBC 1.5 % (0.0-0.3); Platelet Count 112 10^3/uL (130-400); RBC 2.93 10^6/uL (4.36-5.78); RDW 19.9 % (11.8-14.1); RDW-SD 66.7 fL; WBC 3.32 10^3/uL (4.4-10.8)
== END 2024-03-14 23:59 | disposition home or self-care (01) ==
LOC: INF 01:58
PROVIDERS: Nurse Practitioner Adult Health; PCP Family Medicine; Visit Provider Family Medicine
DX: D46.0 Refractory anemia without ring sideroblasts, so stated (principal)
CPT/HCPCS: 36415; 80053; 86850; 86900; 86901; 96372; 85025; J0881

== ENCOUNTER 2024-03-23 03:51 | Outpatient (CLI) | payer MEDICARE, SELFPAY ==
--- NOTE | 2024-03-23 09:13 | DI.RAD_ITS ---
Exam(s) XR CHEST 2V PA LATERAL EXAM: XR CHEST 2V PA LATERAL CLINICAL HISTORY: Pleural effusion, J90 TECHNIQUE: 2D digital imaging was performed of the chest. Two images were obtained. PA and lateral views were obtained. COMPARISON: CR,XR XR PORTABLE CHEST AP from 03/09/2024 CR XR PORTABLE CHEST AP from 03/10/[address] CHEST WO from 03/10/2024 CR,XR XR CHEST 2V PA LATERAL from 03/11/2024 CR,XR XR CHEST 2V PA LATERAL from 03/12/2024 FINDINGS: MEDIASTINUM: Normal. HEART: Normal. There is an aortic valve replacement. PULMONARY VASCULATURE: Normal. LUNGS: Atelectatic changes are seen in the left lung. The right lung is clear. PLEURAL SPACE: There are pleural plaques present. There is no evidence of a right pneumothorax or pl eural effusion. There is a stable small left apical pneumothorax. It measures 1 cm from the left tisha ng apex. There is a persistent left pleural effusion. It appears to be slightly decreased in size c ompared to the prior examination. BONE:Within normal limits for the patient's age. Sternal wires are present. OTHER FINDINGS:Normal. IMPRESSION: 1. Stable small left apical pneumothorax. 2. Persistent left pleural effusion which appears slightly decreased in size compared to the examinat ion from 03/12/2024. DATA REPOSITORY: RADIATION DOSE DELIVERED:
== END 2024-03-23 04:11 ==
LOC: DI 03:51
PROVIDERS: PCP Family Medicine; Visit Provider Family Medicine
DX: J90 Pleural effusion, not elsewhere classified (principal)
CPT/HCPCS: 71046

== ENCOUNTER 2024-04-07 08:21 | Emergency (ER) | payer MEDICARE, SELFPAY ==
[2024-04-07] VITALS (51 sets, daily range): BP systolic 100–144; BP diastolic 55–96; PULSE 76–125; RESP 17–30; TEMP 36.5–37.1; O2SAT 81–100
[2024-04-07 07:41] LABS: Abs Immature Grans 0.04 10^3/uL (0.0-0.06); Absolute Basophil Count 0.01 10^3/uL (0.0-0.2); Absolute Lymphocyte Count 1.43 10^3/uL (1.2-3.4); Absolute Monocyte Count 0.34 10^3/uL (0.1-0.8); Absolute Neutrophil Count 2.28 10^3/uL (1.2-6.7); Basophils % 0.2 %; Lymphocytes % 34.9 %; MCHC 27.1 % (32.0-36.0); MCV 100 fL (80-95); MPV 10.5 fL (8.0-11.0); Monocytes % 8.3 %; Neutrophils % 55.6 %; Platelet Count 154 10^3/uL (130-400); RBC 2.11 10^6/uL (4.36-5.78); RDW 18.2 % (11.8-14.1); RDW-SD 64.1 fL
[2024-04-07 07:58] LABS: Diff Comment RBC Morph Reviewed; Hypochromasia 2+
[2024-04-07 08:01] LABS: ALT 20 U/L (16-63); AST 25 U/L (15-37); Albumin 2.9 g/dL (3.4-5.0); Alkaline Phosphatase 97 U/L (46-116); Anion Gap 11.4 mmol/L (3-11); BUN 28 mg/dL (7-18); Bilirubin, Total 1.44 mg/dL (0.2-1.0); CO2 24.6 mmol/L (21.0-32.0); CREATININE 1.4 mg/dL (0.70-1.30); Calcium 8.7 mg/dL (8.5-10.1); Chloride 107 mmol/L (98-107); Estimated GFR 49.25 (mL/min/1.73m2); Glucose 144 mg/dL (74-106); Potassium 3.7 mmol/L (3.5-5.1); Sodium 143 mmol/L (136-145); Total Protein 6.9 g/dL (6.4-8.2)
[2024-04-07 08:08] LABS: HGB 5.7 g/dL (13.5-17.5)
--- NOTE | 2024-04-07 08:15 | RT.EKG_ITS ---
APPROVED REPORT Exam: Resting ECG Reason for Exam: low hemoglobin Patient Location: E HR:104 bpm ECG Measurements Heart Rate 104 AXIS WI 131 P 0 QRSd 87 QRS -2 QT 322 T [id number] QTc 424 Conclusion Sinus tachycardia with irregular rate...V-rate 67-115, variation>10%
--- NOTE | 2024-04-07 08:54 | ED.GENADUL_ITS ---
Discharge Plan Disposition Patient Disposition: Home Discharge Details Clinical Impression: Acute anemia, Myelodysplastic syndrome, Bilateral pulmonary infiltrates on chest x-ray Primary Care Provider: Rafiq El ED Provider: William Camara Home Meds and New Rx's Prescriptions: Continued ferrous sulfate [iron] 325 mg (65 mg iron) tablet 325 mg PO .every other Patient Comments: patient takes every other day sucralfate 1 gram Tablet 1 g PO AC & HS Qty: 120 0RF metoprolol succinate 100 mg tablet extended release 24 hr 150 mg PO DAILY Qty: 30 0RF pantoprazole 40 mg tablet,delayed release (DR/EC) 40 mg PO BID Qty: 180 0RF Discharge Instructions Instructions: Blood transfusion Additional Instructions: Please follow-up with Dr. El. You have an appointment scheduled to see him on Wednesday at 11:40 AM in clinic. Return to the ER immediately for any worsening or new concerning symptoms. Referrals: Rafiq El MD [Primary Care Provider] - Discharge Data Discharge Date/Time-TO BE ENTERED AT DEPARTURE: 04/07/24 16:22 HPI General Mode of arrival: wheelchair . Date/Time Provider Initiated Documentation: 04/07/24 08:22 . Limitations to Documentation: no limitations . Information obtained by: patient and family . HPI Narrative: 83yo male with multiple medical problems including history of MDS, anemia receiving regular transfusions, prior note of upper GI bleed, here with chief complaint of anemia. There was plan for transfusion today and treatment team was concerned given recent dizziness and dark stool that he should be evaluated in the emergency department. Patient sent from infusion clinic. Related Data Home Medications ?Medication ?Instructions ?Recorded ?Confirmed ferrous sulfate 325 mg (65 mg 325 mg PO .every other 11/22/23 04/07/24 iron) tablet (iron) metoprolol succinate 100 mg 150 mg (1.5 x 100 mg) PO DAILY #30 12/01/23 04/07/24 tablet,extended release 24 hr tabs pantoprazole 40 mg tablet,delayed 40 mg PO BID #180 tabs 12/01/23 04/07/24 release sucralfate 1 gram tablet 1 g PO AC & HS #120 tabs 12/01/23 04/07/24 Previous Rx's ?Medication ?Instructions ?Recorded metoprolol succinate 100 mg 150 mg (1.5 x 100 mg) PO DAILY #30 12/01/23 tablet,extended release 24 hr tabs pantoprazole 40 mg tablet,delayed 40 mg PO BID #180 tabs 12/01/23 release sucralfate 1 gram tablet 1 g PO AC & HS #120 tabs 12/01/23 Allergies Allergy/AdvReac Type Severity Reaction Status Date / Time PEACH SKINS AdvReac Other (See Uncoded 04/07/24 08:35 Comment) General Stated Complaint: GenMedical WILBERT: 3 Review of Systems All systems reviewed & are unremarkable except as noted in HPI and below Cardiovascular Cardiovascular: Denies chest pain and Denies dyspnea Respiratory Respiratory: Denies cough and Denies dyspnea Gastrointestinal Gastrointestinal: Denies hematochezia Comments: Dark-colored stools over the past few days Exam Const General: cooperative and no acute distress HENMT Mouth: moist mucous membranes Eyes Conjunctivae: normal conjunctivae Sclera: normal sclerae Neck Neck: trachea midline and supple Resp Auscultation: clear to auscultation bilaterally, no rales, no rhonchi and no wheezes Cardio Rate: tachycardic Rhythm: regular rhythm GI Palpation: soft, not firm, no guarding, no masses, not rigid and nontender Skin General skin exam: no rashes or lesions noted Neuro General: patient alert, patient awake and tone normal Extrem General: no edema Psych Appearance: grossly normal Course Vital Signs Vital signs: Vital Signs Temperature 36.8 C 04/07/24 08:26 Pulse 118 H 04/07/24 08:26 Respiratory Rate 18 04/07/24 08:26 Blood Pressure 117/59 L 04/07/24 08:26 Pulse Oximetry 100 04/07/24 08:26 Temperature 36.8 C 04/07/24 08:34 Temperature Source Temporal Artery Scan 04/07/24 08:34 Pulse 118 H 04/07/24 08:34 Pulse 118 H 04/07/24 08:31 Respiratory Rate 18 04/07/24 08:34 Blood Pressure 117/59 L 04/07/24 08:34 Blood Pressure Mean 87 04/07/24 08:30 Pulse Oximetry 100 04/07/24 08:34 Oxygen Delivery Method Room Air 04/07/24 08:34 Oxygen Flow Rate 0 04/07/24 08:34 Pain Level 0 04/07/24 08:34 Comment W[place]ITA 04/07/24 08:34 Lab/Test Results Lab/Test Results: Laboratory Tests Range/Units 04/07/24 08:26 Crossmatch See Detail Medical Decision Making 855 -- 83yo male with multiple medical problems including history of MDS, anemia receiving regular transfusions, prior note of upper GI bleed, now off anticoagulation, sent from Dr. Pace with concern for symptomatic anemia and recent dark stools over the past 3 to 4 days. Concern for upper GI bleed causing acute exacerbation of anemia. I will provide transfusion of 2 units PRBC. I will consult with general surgery. Screening EKG was reviewed interpreted by me: Sinus tachycardia 104 bpm, normal axis, T wave inversions noted laterally. These are unchanged from prior EKG which I reviewed from 03/09/2024. -- I reviewed past medical record GI bleed scan 11/30/2023:1. Negative for active GI bleeding. 2. Please note that if clinically indicated this patient can be brought back down to the radiology department for reimaging tomorrow morning to determine if there has been intermittent bleeding since obtaining these negative images. Discharge summary 03/12/24: Patient had similar presentation and was admitted. At the time patient was not interested in repeating colonoscopy. -- Chest x-ray was reviewed and interpreted by radiology: Increasing left lung density having appearance of increasing size pleural effusion, most probably loculated. Bilateral calcified pleural plaques. Increasing infiltrate in the right lung base. Patient reassessed: He saturating well in no respiratory distress, he denies shortness of breath. I spoke with the patient and his at length regarding treatment plan. Patient does not wish to pursue repeat colonoscopy at this time. He does not want to be hospitalized. He would like to to receive transfusion and be discharged home with close outpatient follow-up. Both he and his understand the risks and benefits of discharge and have made an informed decision regarding treatment plan. I attempted to discuss case with Dr. Pace and she was not available today. I called PCP to arrange outpatient follow-up, unfortunately Dr. El is not available today. I spoke with his nurse who has scheduled him for a follow-up appointment Wednesday at 11:[address]. Ryan has availability for outpatient colonoscopy on Wednesday. I discussed this availability with patient and his and they have declined at this time. I do think that Mr. Smith may be a candidate for hospice care at this time. I did not have an opportunity discuss this with him or his during today's visit. Lab Data Lab results reviewed: Yes I reviewed the patient's lab results. Labs: Laboratory Tests Range/Units 04/07/24 04/07/24 07:20 08:26 WBC (4.4-10.8) 10^3/uL 4.10 L RBC (4.36-5.78) 10^6/uL 2.11 L Hgb (13.5-17.5) g/dL 5.7 L* Hct (40.0-50.0) % 21.0 L MCV (80-95) fL 100 H MCH (27.0-33.0) pg 27.0 MCHC (32.0-36.0) % 27.1 L RDW (11.8-14.1) % 18.2 H Plt Count (130-400) 10^3/uL 154 MPV (8.0-11.0) fL 10.5 Immature Gran % % 1.0 Neutrophils % % 55.6 Lymphocytes % % 34.9 Monocytes % % 8.3 Eosinophils % % 0.0 Basophils % % 0.2 Nucleated RBC % (0.0-0.3) % 2.0 H Absolute Neutrophils (1.2-6.7) 10^3/uL 2.28 Absolute Lymphocytes (1.2-3.4) 10^3/uL 1.43 Absolute Monocytes (0.1-0.8) 10^3/uL 0.34 Absolute Eosinophils (0.0-0.7) 10^3/uL 0.00 Absolute Basophils (0.0-0.2) 10^3/uL 0.01 RBC Morphology See Below Hypochromasia 2+ Sodium (136-145) mmol/L 143 Potassium (3.5-5.1) mmol/L 3.7 Chloride (98-107) mmol/L 107 Carbon Dioxide (21.0-32.0) mmol/L 24.6 Anion Gap (3-11) mmol/L 11.4 H BUN (7-18) mg/dL 28 H Creatinine (0.70-1.30) mg/dL 1.4 H Est GFR (CKD-EPI 2020) (mL/min/1.73m2) 49.25 Glucose (74-106) mg/dL 144 H Calcium (8.5-10.1) mg/dL 8.7 Total Bilirubin (0.2-1.0) mg/dL 1.44 H AST (15-37) U/L 25 ALT (16-63) U/L 20 Alkaline Phosphatase (46-116) U/L 97 Total Protein (6.4-8.2) g/dL 6.9 Albumin (3.4-5.0) g/dL 2.9 L Crossmatch See Detail Quality:SDOH Health Related Social Needs: Health related social needs details denied problems Critical Care Time Critical Care Time Critical Care Time: Yes Total Critical Care Time: 45 Attestation: I spent greater than 45 minutes addressing this patient's immediate life threats PFSH All Active Problems (Updated 04/07/24 @ 15:40 by William Camara MD) Bilateral pulmonary infiltrates on chest x-ray (Acute) Acute anemia (Acute) Pneumothorax, iatrogenic (Acute) Pleural effusion (Acute) Atrial fibrillation (Chronic) Chronic anticoagulation (Chronic) Myelodysplastic syndrome (Chronic) Anemia (Chronic) Encounter for blood transfusion (Acute) Anemia (Chronic) H/O mechanical aortic valve replacement (Chronic) Diverticulosis of colon without diverticulitis (Chronic) Upper GI bleed (Acute) 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 ear (Acute) Sensorineural hearing loss (SNHL) of right ear with restricted hearing of left ear (Acute) Sensorineural hearing loss of combined sites, bilateral (Acute 08/03/16) Medical History Elevated troponin level not due to acute coronary syndrome CKD (chronic kidney disease) stage 3, GFR 30-59 ml/min DNR (do not resuscitate) Not sure about intubation, +treat, +transfer, +abx, +IV fluids Advanced care planning/counseling discussion Palliative care encounter Atrial flutter Prosthetic cardiac valve vegetation Intracranial hemorrhage Discharge planning issues diverticulosis adenoma colon polyp Prosthetic Aortic Valve Overweight Hearing loss bilat Surgical History History of thoracentesis (~02/2024) H/O prosthetic aortic valve replacement redo of aortic valve hernia/hydrocele repair Appendectomy Aortic valve replaced Social History Smoking/Tobacco Use Status: Current-Occasional Smoking risk assessment performed?: Yes Alcohol Intake: current Alcohol Intake frequency: holidays/special occasions only Alcohol type: wine Drug use: Never Substance use type: does not use Housing: house Do you feel safe at home: Yes Do you feel safe in your relationship?: Yes
[2024-04-07] MEDS: Pantoprazole 40 MG VIAL IVP (09:30)
--- NOTE | 2024-04-07 09:31 | DI.RAD_ITS ---
Exam(s) XR PORTABLE CHEST AP EXAM: XR PORTABLE CHEST AP CLINICAL HISTORY: SOB. TECHNIQUE: 2D digital imaging was performed. COMPARISON: CT CT CHEST WO from 03/10/2024 CR,XR XR CHEST 2V PA LATERAL from 03/12/2024 CR XR CHEST 2V PA LATERAL from 03/23/2024 FINDINGS: Single AP portable view. Sternotomy wires. Heart size unchanged. Prosthetic aortic valve again noted. There is increased density over left chest wall which is probably loculated pleural effusion. Also s ome infiltrate in left lung base and small left-sided pneumothorax again noted. There is also now so me infiltrate in the right lower lung. Calcified pleural plaques are again noted. IMPRESSION: Increasing left lung density having appearance of increasing size pleural effusion, most probably loc ulated. Bilateral calcified pleural plaques. Increasing infiltrate in the right lung base. DATA REPOSITORY: RADIATION DOSE DELIVERED:
--- NOTE | 2024-04-07 13:41 | NUR.NOTE ---
Nursing Note: At 13:29, pt's temperature noted to be elevated to 37.1 (from 36.7) and heart rate elevated to 119 (from 88). Pt denies pain, shortness of breath, pruritus, chills or rigor. No evidence of hives or rash, cyanosis, or jaundice. Physician updated and advised to continue transfusion. Will continue to monitor.
== END 2024-04-07 16:22 | disposition home or self-care (01) ==
PROVIDERS: Family Medicine; Emergency Provider Student in an Organized Health Care Education/Training Program; PCP Family Medicine
DX: D64.9 Anemia, unspecified (principal); R00.0 Tachycardia, unspecified; R91.8 Other nonspecific abnormal finding of lung field; D46.9 Myelodysplastic syndrome, unspecified; N18.30 Chronic kidney disease, stage 3 unspecified; Z95.2 Presence of prosthetic heart valve; Z66 Do not resuscitate
CPT/HCPCS: 36415; 36430; 80053; 86850; 86900; 86901; 86920; 93005; 96374; 99284; 71045; 85025; 93010; J2470; P9016

== ENCOUNTER 2024-04-14 00:31 | Outpatient (RCR) | payer MEDICARE, SELFPAY ==
[2024-03-15 00:28] VITALS: BP 148/95; PULSE 82; RESP 17; TEMP 36.4
[2024-03-17 07:44] LABS: Abs Immature Grans 0.02 10^3/uL (0.0-0.06); Absolute Basophil Count 0.01 10^3/uL (0.0-0.2); Absolute Lymphocyte Count 0.87 10^3/uL (1.2-3.4); Absolute Monocyte Count 0.21 10^3/uL (0.1-0.8); Absolute Neutrophil Count 1.55 10^3/uL (1.2-6.7); Basophils % 0.4 %; HGB 8.9 g/dL (13.5-17.5); Immature Grans % 0.8 %; Lymphocytes % 32.7 %; MCH 28.9 pg (27.0-33.0); MCHC 28.7 % (32.0-36.0); MCV 101 fL (80-95); MPV 10.2 fL (8.0-11.0); Monocytes % 7.9 %; Neutrophils % 58.2 %; Nucleated RBC 2.6 % (0.0-0.3); Platelet Count 112 10^3/uL (130-400); RBC 3.08 10^6/uL (4.36-5.78); RDW 19.3 % (11.8-14.1); RDW-SD 68.2 fL; WBC 2.66 10^3/uL (4.4-10.8)
[2024-03-17 07:56] LABS: Anisocytosis 2+; Diff Comment RBC Morph Reviewed; Polychromasia Present
[2024-03-17 07:57] LABS: ALT 21 U/L (16-63); AST 29 U/L (15-37); Albumin 2.8 g/dL (3.4-5.0); Alkaline Phosphatase 98 U/L (46-116); BUN 19 mg/dL (7-18); CREATININE 1.5 mg/dL (0.70-1.30); Chloride 109 mmol/L (98-107); Estimated GFR 45.34 (mL/min/1.73m2); Glucose 137 mg/dL (74-106); Poikilocytes 1+; Potassium 3.9 mmol/L (3.5-5.1); Sodium 144 mmol/L (136-145); Total Protein 7.1 g/dL (6.4-8.2)
[2024-03-17] MEDS: Darbepoetin 300 MCG SYR SC (07:57)
[2024-03-17 08:02] LABS: Calcium 9.4 mg/dL (8.5-10.1)
[2024-03-24] VITALS (13 sets, daily range): BP systolic 107–123; BP diastolic 56–75; PULSE 69–101; RESP 14–18; TEMP 36.5–37.2; O2SAT 95–100
[2024-03-24 08:15] LABS: Abs Immature Grans 0.02 10^3/uL (0.0-0.06); Absolute Basophil Count 0.01 10^3/uL (0.0-0.2); Absolute Neutrophil Count 1.01 10^3/uL (1.2-6.7); Basophils % 0.4 %; HCT 22.1 % (40.0-50.0); Immature Grans % 0.9 %; Lymphocytes % 44.6 %; MCH 28.2 pg (27.0-33.0); MCHC 27.6 % (32.0-36.0); MCV 102 fL (80-95); MPV 9.9 fL (8.0-11.0); Monocytes % 8.9 %; Neutrophils % 45.2 %; Nucleated RBC 1.8 % (0.0-0.3); Platelet Count 151 10^3/uL (130-400); RBC 2.16 10^6/uL (4.36-5.78); RDW 19.9 % (11.8-14.1); RDW-SD 73.1 fL; WBC 2.24 10^3/uL (4.4-10.8)
[2024-03-24 08:24] LABS: HGB 6.1 g/dL (13.5-17.5)
[2024-03-24 08:27] LABS: Diff Comment RBC Morph Reviewed; Hypochromasia 1+
[2024-03-24 08:29] LABS: ALT 16 U/L (16-63); AST 30 U/L (15-37); Albumin 2.9 g/dL (3.4-5.0); Alkaline Phosphatase 92 U/L (46-116); Anion Gap 10.9 mmol/L (3-11); BUN 33 mg/dL (7-18); Bilirubin, Total 1.74 mg/dL (0.2-1.0); CO2 24.1 mmol/L (21.0-32.0); CREATININE 1.6 mg/dL (0.70-1.30); Calcium 9.5 mg/dL (8.5-10.1); Chloride 109 mmol/L (98-107); Estimated GFR 41.96 (mL/min/1.73m2); Glucose 154 mg/dL (74-106); Potassium 4.1 mmol/L (3.5-5.1); Sodium 144 mmol/L (136-145); Total Protein 7.1 g/dL (6.4-8.2)
[2024-03-24] MEDS: Normal Saline Flush 10 ML SYR IVP (09:00)
[2024-03-24] MEDS: Darbepoetin 300 MCG SYR SC (11:19)
[2024-03-29] MEDS: Darbepoetin 300 MCG SYR SC (08:53)
[2024-03-31 07:33] LABS: Abs Immature Grans 0.01 10^3/uL (0.0-0.06); Absolute Basophil Count 0.01 10^3/uL (0.0-0.2); Absolute Eosinophil Count 0.01 10^3/uL (0.0-0.7); Absolute Lymphocyte Count 1.08 10^3/uL (1.2-3.4); Absolute Monocyte Count 0.26 10^3/uL (0.1-0.8); Absolute Neutrophil Count 1.64 10^3/uL (1.2-6.7); Basophils % 0.3 %; Eosinophils % 0.3 %; HCT 28.7 % (40.0-50.0); HGB 8.2 g/dL (13.5-17.5); Immature Grans % 0.3 %; Lymphocytes % 35.9 %; MCH 28.4 pg (27.0-33.0); MCHC 28.6 % (32.0-36.0); MCV 99 fL (80-95); MPV 10.2 fL (8.0-11.0); Monocytes % 8.6 %; Neutrophils % 54.6 %; Platelet Count 141 10^3/uL (130-400); RBC 2.89 10^6/uL (4.36-5.78); RDW 18.2 % (11.8-14.1); WBC 3.01 10^3/uL (4.4-10.8)
[2024-03-31 07:48] LABS: ALT 17 U/L (16-63); AST 28 U/L (15-37); Alkaline Phosphatase 101 U/L (46-116); Anion Gap 7.5 mmol/L (3-11); BUN 25 mg/dL (7-18); Bilirubin, Total 1.74 mg/dL (0.2-1.0); CO2 26.5 mmol/L (21.0-32.0); CREATININE 1.4 mg/dL (0.70-1.30); Chloride 108 mmol/L (98-107); Estimated GFR 49.25 (mL/min/1.73m2); Glucose 127 mg/dL (74-106); Potassium 4.7 mmol/L (3.5-5.1); Sodium 142 mmol/L (136-145); Total Protein 7.2 g/dL (6.4-8.2)
[2024-03-31] MEDS: Normal Saline Flush 10 ML SYR IVP (07:51)
[2024-03-31] MEDS: Darbepoetin 300 MCG SYR SC (07:51)
[2024-03-31 07:59] LABS: Hypochromasia 2+; Poikilocytes 2+; Polychromasia Present
[2024-03-31 08:09] LABS: Diff Comment Agrees w/ Instrument
[2024-04-07] MEDS: Normal Saline Flush 10 ML SYR IVP (09:02)
[2024-04-10 09:14] LABS: HCT 26.1 % (40.0-50.0); HGB 7.7 g/dL (13.5-17.5); MCH 28.9 pg (27.0-33.0); MCHC 29.5 % (32.0-36.0); MCV 98 fL (80-95); MPV 10.6 fL (8.0-11.0); Platelet Count 153 10^3/uL (130-400); RBC 2.66 10^6/uL (4.36-5.78); RDW 18.1 % (11.8-14.1); RDW-SD 62.9 fL; WBC 3.27 10^3/uL (4.4-10.8)
[2024-04-10 09:26] LABS: Absolute Lymphocyte Count 1.37 10^3/uL (1.2-3.4); Absolute Monocyte Count 0.07 10^3/uL (0.1-0.8); Atypical Lymphocytes % 3 %; Diff Comment Manual Differential; Metamyelocytes % 1; RBC Morphology Normal
[2024-04-10 09:38] LABS: ALT 17 U/L (16-63); AST 25 U/L (15-37); Albumin 2.8 g/dL (3.4-5.0); Alkaline Phosphatase 95 U/L (46-116); Anion Gap 7.9 mmol/L (3-11); BUN 27 mg/dL (7-18); Bilirubin, Total 1.75 mg/dL (0.2-1.0); CO2 26.1 mmol/L (21.0-32.0); CREATININE 1.3 mg/dL (0.70-1.30); Chloride 107 mmol/L (98-107); Estimated GFR 53.84 (mL/min/1.73m2); Glucose 121 mg/dL (74-106); Potassium 3.8 mmol/L (3.5-5.1); Sodium 141 mmol/L (136-145); Total Protein 6.8 g/dL (6.4-8.2)
[2024-04-10 10:30] VITALS: BP 118/75; PULSE 95; RESP 18; TEMP 36.7; O2SAT 98
[2024-04-10 10:45] VITALS: BP 118/75; PULSE 100; RESP 18; TEMP 36.7; O2SAT 98
[2024-04-10 11:15] VITALS: BP 106/67; PULSE 99; RESP 18; TEMP 36.7; O2SAT 100
[2024-04-10 12:10] VITALS: BP 118/77; PULSE 110; RESP 18; TEMP 37.1; O2SAT 97
[2024-04-10 12:15] VITALS: RESP 18; O2SAT 97
[2024-04-10 12:45] VITALS: BP 118/70; PULSE 99; RESP 118; TEMP 37.1; O2SAT 99
[2024-04-14 07:47] LABS: Abs Immature Grans 0.03 10^3/uL (0.0-0.06); Absolute Basophil Count 0.01 10^3/uL (0.0-0.2); Absolute Eosinophil Count 0.01 10^3/uL (0.0-0.7); Absolute Lymphocyte Count 0.58 10^3/uL (1.2-3.4); Absolute Monocyte Count 0.31 10^3/uL (0.1-0.8); Absolute Neutrophil Count 1.85 10^3/uL (1.2-6.7); Basophils % 0.4 %; Eosinophils % 0.4 %; HCT 27.4 % (40.0-50.0); HGB 8.1 g/dL (13.5-17.5); Immature Grans % 1.1 %; Lymphocytes % 20.8 %; MCH 28.7 pg (27.0-33.0); MCHC 29.6 % (32.0-36.0); MCV 97 fL (80-95); Monocytes % 11.1 %; Neutrophils % 66.2 %; Nucleated RBC 2.5 % (0.0-0.3); Platelet Count 151 10^3/uL (130-400); RBC 2.82 10^6/uL (4.36-5.78); RDW 17.9 % (11.8-14.1); WBC 2.79 10^3/uL (4.4-10.8)
[2024-04-14 07:53] LABS: Diff Comment Diff Reviewed; Hypochromasia 1+; Polychromasia Present
[2024-04-14 08:08] LABS: ALT 16 U/L (16-63); AST 22 U/L (15-37); Albumin 2.7 g/dL (3.4-5.0); Alkaline Phosphatase 97 U/L (46-116); Anion Gap 9.1 mmol/L (3-11); BUN 22 mg/dL (7-18); CO2 26.9 mmol/L (21.0-32.0); CREATININE 1.4 mg/dL (0.70-1.30); Chloride 108 mmol/L (98-107); Estimated GFR 49.25 (mL/min/1.73m2); Glucose 144 mg/dL (74-106); Potassium 3.9 mmol/L (3.5-5.1); Sodium 144 mmol/L (136-145); Total Protein 6.9 g/dL (6.4-8.2)
[2024-04-14] MEDS: Darbepoetin 300 MCG SYR SC (08:12)
[2024-04-14] MEDS: Normal Saline Flush 10 ML SYR IVP (08:13)
== END 2024-04-14 23:59 | disposition home or self-care (01) ==
LOC: INF 00:31
PROVIDERS: Nurse Practitioner Adult Health; PCP Family Medicine; Visit Provider Family Medicine
DX: D46.9 Myelodysplastic syndrome, unspecified (principal); D46.0 Refractory anemia without ring sideroblasts, so stated
CPT/HCPCS: 36415; 36430; 80053; 86850; 86900; 86901; 86920; 96372; 85025; J0881; P9016

== ENCOUNTER 2024-05-12 01:40 | Outpatient (RCR) | payer MEDICARE, SELFPAY ==
[2024-04-18 07:43] LABS: Abs Immature Grans 0.01 10^3/uL (0.0-0.06); Absolute Basophil Count 0.02 10^3/uL (0.0-0.2); Absolute Eosinophil Count 0.01 10^3/uL (0.0-0.7); Absolute Lymphocyte Count 1.19 10^3/uL (1.2-3.4); Absolute Monocyte Count 0.22 10^3/uL (0.1-0.8); Absolute Neutrophil Count 1.43 10^3/uL (1.2-6.7); Basophils % 0.7 %; Eosinophils % 0.3 %; HCT 24.5 % (40.0-50.0); HGB 7.1 g/dL (13.5-17.5); Immature Grans % 0.3 %; Lymphocytes % 41.3 %; MCH 28.2 pg (27.0-33.0); MCV 97 fL (80-95); MPV 10.6 fL (8.0-11.0); Monocytes % 7.6 %; Neutrophils % 49.8 %; Platelet Count 152 10^3/uL (130-400); RBC 2.52 10^6/uL (4.36-5.78); RDW 17.4 % (11.8-14.1); RDW-SD 60.1 fL; WBC 2.88 10^3/uL (4.4-10.8)
[2024-04-18 08:19] LABS: ALT 17 U/L (16-63); AST 21 U/L (15-37); Albumin 2.7 g/dL (3.4-5.0); Alkaline Phosphatase 103 U/L (46-116); Anion Gap 8.2 mmol/L (3-11); BUN 21 mg/dL (7-18); Bilirubin, Total 1.36 mg/dL (0.2-1.0); CO2 25.8 mmol/L (21.0-32.0); CREATININE 1.3 mg/dL (0.70-1.30); Calcium 8.9 mg/dL (8.5-10.1); Chloride 109 mmol/L (98-107); Estimated GFR 53.84 (mL/min/1.73m2); Glucose 135 mg/dL (74-106); Sodium 143 mmol/L (136-145); Total Protein 6.8 g/dL (6.4-8.2)
[2024-04-18 08:51] VITALS: BP 111/67; PULSE 93; RESP 18; TEMP 36.6; O2SAT 98
[2024-04-18 09:14] VITALS: BP 115/79; PULSE 93; RESP 18; TEMP 36.3; O2SAT 99
[2024-04-18 09:30] VITALS: BP 131/75; PULSE 89; RESP 18; TEMP 36.7; O2SAT 99
[2024-04-18 10:00] VITALS: BP 115/74; PULSE 90; RESP 17; TEMP 36.8; O2SAT 99
[2024-04-18 10:35] VITALS: BP 116/73; PULSE 90; RESP 17; TEMP 36.8; O2SAT 96
[2024-04-21 08:05] LABS: Absolute Basophil Count 0.01 10^3/uL (0.0-0.2); Basophils % 0.2 %; HGB 7.3 g/dL (13.5-17.5); MCV 97 fL (80-95); Nucleated RBC 0.9 % (0.0-0.3)
[2024-04-21 08:07] LABS: Abs Immature Grans 0.06 10^3/uL (0.0-0.06); Absolute Lymphocyte Count 0.63 10^3/uL (1.2-3.4); Absolute Monocyte Count 0.49 10^3/uL (0.1-0.8); Absolute Neutrophil Count 3.21 10^3/uL (1.2-6.7); HCT 25.3 % (40.0-50.0); Immature Grans % 1.4 %; Lymphocytes % 14.3 %; MCH 27.9 pg (27.0-33.0); MCHC 28.9 % (32.0-36.0); MPV 10.8 fL (8.0-11.0); Monocytes % 11.1 %; Platelet Count 141 10^3/uL (130-400); RBC 2.62 10^6/uL (4.36-5.78); RDW 17.1 % (11.8-14.1); RDW-SD 58.7 fL
[2024-04-21 08:36] LABS: ALT 17 U/L (16-63); AST 26 U/L (15-37); Albumin 2.8 g/dL (3.4-5.0); Alkaline Phosphatase 98 U/L (46-116); Anion Gap 9.7 mmol/L (3-11); BUN 23 mg/dL (7-18); Bilirubin, Total 2.29 mg/dL (0.2-1.0); CO2 24.3 mmol/L (21.0-32.0); CREATININE 1.5 mg/dL (0.70-1.30); Calcium 8.9 mg/dL (8.5-10.1); Chloride 108 mmol/L (98-107); Estimated GFR 45.34 (mL/min/1.73m2); Glucose 129 mg/dL (74-106); Potassium 3.6 mmol/L (3.5-5.1); Sodium 142 mmol/L (136-145); Total Protein 7.1 g/dL (6.4-8.2)
[2024-04-21 09:00] VITALS: BP 119/68; PULSE 122; RESP 16; TEMP 36.4; O2SAT 95
[2024-04-21 09:15] VITALS: BP 120/65; PULSE 123; RESP 16; TEMP 36.3; O2SAT 96
[2024-04-21 09:28] VITALS: BP 120/67; PULSE 123; RESP 16; TEMP 36.3; O2SAT 98
[2024-04-21 10:01] VITALS: BP 117/66; PULSE 122; RESP 16; TEMP 36.6; O2SAT 100
[2024-04-21 10:39] VITALS: BP 122/77; PULSE 121; RESP 17; TEMP 36.8; O2SAT 99
[2024-04-21] MEDS: Normal Saline Flush 10 ML SYR IVP (11:08)
[2024-04-25] VITALS (10 sets, daily range): BP systolic 91–111; BP diastolic 55–74; PULSE 65–92; RESP 16–18; TEMP 35.6–36.5; O2SAT 96–100
[2024-04-25 08:01] LABS: Abs Immature Grans 0.03 10^3/uL (0.0-0.06); HCT 22.1 % (40.0-50.0); MCH 28.7 pg (27.0-33.0); MCV 99 fL (80-95); MPV 10.4 fL (8.0-11.0); RBC 2.23 10^6/uL (4.36-5.78); RDW 17.5 % (11.8-14.1); RDW-SD 60.9 fL; WBC 2.52 10^3/uL (4.4-10.8)
[2024-04-25 08:21] LABS: Absolute Lymphocyte Count 1.08 10^3/uL (1.2-3.4); Absolute Monocyte Count 0.18 10^3/uL (0.1-0.8); Absolute Neutrophil Count 1.26 10^3/uL (1.2-6.7); Atypical Lymphocytes % 3 %
[2024-04-25 08:22] LABS: Diff Comment Manual Differential; Hypochromasia 2+; Poikilocytes 2+; Polychromasia Present
[2024-04-25 08:23] LABS: Platelet Count 148 10^3/uL (130-400)
[2024-04-25 08:30] LABS: ALT 18 U/L (16-63); AST 25 U/L (15-37); Albumin 2.6 g/dL (3.4-5.0); Alkaline Phosphatase 113 U/L (46-116); Anion Gap 7.3 mmol/L (3-11); BUN 31 mg/dL (7-18); Bilirubin, Total 1.22 mg/dL (0.2-1.0); CO2 24.7 mmol/L (21.0-32.0); CREATININE 1.3 mg/dL (0.70-1.30); Calcium 8.6 mg/dL (8.5-10.1); Chloride 110 mmol/L (98-107); Estimated GFR 53.84 (mL/min/1.73m2); Glucose 132 mg/dL (74-106); Sodium 142 mmol/L (136-145); Total Protein 6.6 g/dL (6.4-8.2)
[2024-04-25] MEDS: Normal Saline Flush 10 ML SYR IVP (13:07)
[2024-04-25 14:05] LABS: HGB 6.4 g/dL (13.5-17.5)
[2024-04-28 07:37] VITALS: BP 118/71; PULSE 75; RESP 22; TEMP 36.5; O2SAT 95
[2024-04-28 07:46] LABS: HCT 23.5 % (40.0-50.0); HGB 7.1 g/dL (13.5-17.5); MCH 28.1 pg (27.0-33.0); MCHC 30.2 % (32.0-36.0); MCV 93 fL (80-95); MPV 9.8 fL (8.0-11.0); Platelet Count 132 10^3/uL (130-400); RBC 2.53 10^6/uL (4.36-5.78); RDW 18.1 % (11.8-14.1); RDW-SD 60.4 fL; WBC 3.03 10^3/uL (4.4-10.8)
[2024-04-28] MEDS: Normal Saline Flush 10 ML SYR IVP (07:47)
[2024-04-28 08:10] LABS: ALT 15 U/L (16-63); AST 19 U/L (15-37); Albumin 2.4 g/dL (3.4-5.0); Alkaline Phosphatase 98 U/L (46-116); Anion Gap 6.6 mmol/L (3-11); BUN 24 mg/dL (7-18); Bilirubin, Total 1.16 mg/dL (0.2-1.0); CO2 27.4 mmol/L (21.0-32.0); CREATININE 1.1 mg/dL (0.70-1.30); Calcium 8.6 mg/dL (8.5-10.1); Chloride 110 mmol/L (98-107); Estimated GFR 65.79 (mL/min/1.73m2); Glucose 137 mg/dL (74-106); Potassium 3.2 mmol/L (3.5-5.1); Sodium 144 mmol/L (136-145); Total Protein 6.2 g/dL (6.4-8.2)
[2024-04-28] MEDS: Darbepoetin 300 MCG SYR SC (08:11)
[2024-04-28 08:16] LABS: Absolute Monocyte Count 0.03 10^3/uL (0.1-0.8); Myelocytes % 1; Other Cells % 3
[2024-04-28 08:17] LABS: Absolute Lymphocyte Count 0.88 10^3/uL (1.2-3.4); Atypical Lymphocytes % 2 %; Diff Comment Manual Differential; RBC Morphology Normal
[2024-04-28 08:34] VITALS: BP 118/71; PULSE 75; RESP 22; TEMP 36.5; O2SAT 95
[2024-04-28 08:49] VITALS: BP 108/66; PULSE 76; RESP 20; TEMP 36.4; O2SAT 99
[2024-04-28 09:10] VITALS: BP 106/68; PULSE 85; RESP 20; TEMP 36.3; O2SAT 99
[2024-04-28 09:35] VITALS: BP 107/64; PULSE 82; RESP 20; TEMP 36.5; O2SAT 100
[2024-04-28 10:41] VITALS: BP 117/69; PULSE 85; RESP 20; TEMP 36.9; O2SAT 100
[2024-05-02] VITALS (11 sets, daily range): BP systolic 107–120; BP diastolic 62–81; PULSE 71–96; RESP 17–18; TEMP 36–36.8; O2SAT 97–100
[2024-05-02] MEDS: Normal Saline Flush 10 ML SYR IVP (08:02)
[2024-05-02 08:10] LABS: MCH 27.6 pg (27.0-33.0); MCHC 29.5 % (32.0-36.0); MCV 93 fL (80-95); MPV 10.4 fL (8.0-11.0); Platelet Count 128 10^3/uL (130-400); RBC 2.25 10^6/uL (4.36-5.78); RDW 16.7 % (11.8-14.1); RDW-SD 56.8 fL; WBC 2.48 10^3/uL (4.4-10.8)
[2024-05-02 08:27] LABS: ALT 11 U/L (16-63); AST 20 U/L (15-37); Albumin 2.4 g/dL (3.4-5.0); Alkaline Phosphatase 91 U/L (46-116); Anion Gap 7.6 mmol/L (3-11); BUN 24 mg/dL (7-18); Bilirubin, Total 1.19 mg/dL (0.2-1.0); CO2 26.4 mmol/L (21.0-32.0); CREATININE 1.2 mg/dL (0.70-1.30); Calcium 8.4 mg/dL (8.5-10.1); Chloride 111 mmol/L (98-107); Estimated GFR 59.26 (mL/min/1.73m2); Glucose 137 mg/dL (74-106); Potassium 3.9 mmol/L (3.5-5.1); Sodium 145 mmol/L (136-145); Total Protein 6.2 g/dL (6.4-8.2)
[2024-05-02 08:52] LABS: Absolute Lymphocyte Count 0.89 10^3/uL (1.2-3.4); Absolute Monocyte Count 0.05 10^3/uL (0.1-0.8); Absolute Neutrophil Count 1.54 10^3/uL (1.2-6.7); Atypical Lymphocytes % 1 %; HGB 6.2 g/dL (13.5-17.5)
[2024-05-02 08:53] LABS: Diff Comment Manual Differential; RBC Morphology Normal
[2024-05-05 07:27] VITALS: BP 106/54; PULSE 58; RESP 14; TEMP 37.2; O2SAT 97
[2024-05-05 07:30] LABS: Abs Immature Grans 0.02 10^3/uL (0.0-0.06); Absolute Basophil Count 0.01 10^3/uL (0.0-0.2); Absolute Monocyte Count 0.13 10^3/uL (0.1-0.8); Absolute Neutrophil Count 1.56 10^3/uL (1.2-6.7); Basophils % 0.4 %; HCT 24.3 % (40.0-50.0); HGB 7.2 g/dL (13.5-17.5); Immature Grans % 0.8 %; Lymphocytes % 31.7 %; MCH 27.7 pg (27.0-33.0); MCHC 29.6 % (32.0-36.0); MCV 94 fL (80-95); MPV 10.4 fL (8.0-11.0); Monocytes % 5.2 %; Neutrophils % 61.9 %; Nucleated RBC 0.8 % (0.0-0.3); Platelet Count 126 10^3/uL (130-400); RDW 18.1 % (11.8-14.1); RDW-SD 59.8 fL; WBC 2.52 10^3/uL (4.4-10.8)
[2024-05-05 07:51] LABS: ALT 12 U/L (16-63); AST 26 U/L (15-37); Albumin 2.5 g/dL (3.4-5.0); Alkaline Phosphatase 92 U/L (46-116); Anion Gap 10.2 mmol/L (3-11); BUN 28 mg/dL (7-18); Bilirubin, Total 1.38 mg/dL (0.2-1.0); CO2 22.8 mmol/L (21.0-32.0); CREATININE 1.2 mg/dL (0.70-1.30); Calcium 8.7 mg/dL (8.5-10.1); Chloride 109 mmol/L (98-107); Estimated GFR 59.26 (mL/min/1.73m2); Glucose 126 mg/dL (74-106); Potassium 4.1 mmol/L (3.5-5.1); Sodium 142 mmol/L (136-145); Total Protein 6.5 g/dL (6.4-8.2)
[2024-05-05 08:50] VITALS: BP 106/54; PULSE 58; RESP 14; TEMP 37.2; O2SAT 97
[2024-05-05 09:12] VITALS: BP 116/70; PULSE 100; RESP 14; TEMP 36.6; O2SAT 100
[2024-05-05 09:30] VITALS: BP 115/75; PULSE 92; RESP 14; TEMP 36.6; O2SAT 99
[2024-05-05 10:05] VITALS: BP 107/73; PULSE 97; RESP 14; TEMP 36.5; O2SAT 100
[2024-05-05 10:42] VITALS: BP 107/69; PULSE 93; RESP 14; TEMP 36.6; O2SAT 100
[2024-05-05] MEDS: Normal Saline Flush 10 ML SYR IVP (11:26)
[2024-05-09] VITALS (10 sets, daily range): BP systolic 93–130; BP diastolic 47–82; PULSE 65–108; RESP 14–17; TEMP 36–37.4; O2SAT 97–100
[2024-05-09 07:35] LABS: Abs Immature Grans 0.02 10^3/uL (0.0-0.06); Absolute Basophil Count 0.01 10^3/uL (0.0-0.2); Absolute Eosinophil Count 0.01 10^3/uL (0.0-0.7); Absolute Lymphocyte Count 0.84 10^3/uL (1.2-3.4); Absolute Monocyte Count 0.19 10^3/uL (0.1-0.8); Absolute Neutrophil Count 1.35 10^3/uL (1.2-6.7); Basophils % 0.4 %; Eosinophils % 0.4 %; HCT 22.7 % (40.0-50.0); Immature Grans % 0.8 %; Lymphocytes % 34.7 %; MCHC 29.5 % (32.0-36.0); MCV 95 fL (80-95); MPV 10.8 fL (8.0-11.0); Monocytes % 7.9 %; Neutrophils % 55.8 %; Nucleated RBC 2.1 % (0.0-0.3); Platelet Count 142 10^3/uL (130-400); RBC 2.39 10^6/uL (4.36-5.78); RDW 19.1 % (11.8-14.1); RDW-SD 62.7 fL; WBC 2.42 10^3/uL (4.4-10.8)
[2024-05-09 07:52] LABS: ALT 11 U/L (16-63); AST 24 U/L (15-37); Albumin 2.5 g/dL (3.4-5.0); Alkaline Phosphatase 101 U/L (46-116); Anion Gap 9.2 mmol/L (3-11); BUN 26 mg/dL (7-18); Bilirubin, Total 1.25 mg/dL (0.2-1.0); CO2 22.8 mmol/L (21.0-32.0); CREATININE 1.4 mg/dL (0.70-1.30); Calcium 8.8 mg/dL (8.5-10.1); Chloride 111 mmol/L (98-107); Estimated GFR 49.25 (mL/min/1.73m2); Glucose 128 mg/dL (74-106); Potassium 3.9 mmol/L (3.5-5.1); Sodium 143 mmol/L (136-145); Total Protein 6.6 g/dL (6.4-8.2)
[2024-05-09] MEDS: Normal Saline Flush 10 ML SYR IVP ×2 (08:01→12:19)
[2024-05-09 08:36] LABS: HGB 6.7 g/dL (13.5-17.5)
[2024-05-12 07:46] LABS: Abs Immature Grans 0.02 10^3/uL (0.0-0.06); Absolute Basophil Count 0.01 10^3/uL (0.0-0.2); Absolute Lymphocyte Count 0.59 10^3/uL (1.2-3.4); Absolute Monocyte Count 0.29 10^3/uL (0.1-0.8); Absolute Neutrophil Count 1.42 10^3/uL (1.2-6.7); Basophils % 0.4 %; HCT 27.2 % (40.0-50.0); HGB 8.2 g/dL (13.5-17.5); Immature Grans % 0.9 %; Lymphocytes % 25.3 %; MCH 28.5 pg (27.0-33.0); MCHC 30.1 % (32.0-36.0); MCV 94 fL (80-95); MPV 10.3 fL (8.0-11.0); Monocytes % 12.4 %; Nucleated RBC 1.3 % (0.0-0.3); Platelet Count 120 10^3/uL (130-400); RBC 2.88 10^6/uL (4.36-5.78); RDW 17.2 % (11.8-14.1); RDW-SD 56.5 fL; WBC 2.33 10^3/uL (4.4-10.8)
[2024-05-12] MEDS: Normal Saline Flush 10 ML SYR IVP (07:49)
[2024-05-12 07:59] LABS: ALT 14 U/L (16-63); AST 21 U/L (15-37); Albumin 2.6 g/dL (3.4-5.0); Alkaline Phosphatase 105 U/L (46-116); Anion Gap 10.4 mmol/L (3-11); BUN 23 mg/dL (7-18); Bilirubin, Total 1.52 mg/dL (0.2-1.0); CO2 24.6 mmol/L (21.0-32.0); CREATININE 1.2 mg/dL (0.70-1.30); Calcium 8.5 mg/dL (8.5-10.1); Chloride 107 mmol/L (98-107); Estimated GFR 59.26 (mL/min/1.73m2); Glucose 100 mg/dL (74-106); Potassium 3.6 mmol/L (3.5-5.1); Sodium 142 mmol/L (136-145); Total Protein 6.7 g/dL (6.4-8.2)
[2024-05-12 08:06] LABS: Anisocytosis 1+; Diff Comment RBC Morph Reviewed; Polychromasia Present
[2024-05-12] MEDS: Darbepoetin 300 MCG SYR SC (08:18)
== END 2024-05-12 23:59 | disposition home or self-care (01) ==
LOC: INF 01:40
PROVIDERS: Nurse Practitioner Adult Health; PCP Family Medicine; Visit Provider Family Medicine
DX: D46.9 Myelodysplastic syndrome, unspecified (principal)
CPT/HCPCS: 36415; 36430; 80053; 86850; 86900; 86901; 86920; 86945; 96365; 96366; 96372; 85025; J0881; P9016

== ENCOUNTER 2024-06-09 03:23 | Outpatient (RCR) | payer MEDICARE, SELFPAY ==
[2024-05-16 07:50] LABS: Abs Immature Grans 0.01 10^3/uL (0.0-0.06); Absolute Basophil Count 0.01 10^3/uL (0.0-0.2); Absolute Eosinophil Count 0.01 10^3/uL (0.0-0.7); Absolute Lymphocyte Count 0.77 10^3/uL (1.2-3.4); Absolute Monocyte Count 0.26 10^3/uL (0.1-0.8); Absolute Neutrophil Count 1.03 10^3/uL (1.2-6.7); Basophils % 0.5 %; Eosinophils % 0.5 %; HCT 26.2 % (40.0-50.0); HGB 7.6 g/dL (13.5-17.5); Immature Grans % 0.5 %; Lymphocytes % 36.8 %; MCH 28.3 pg (27.0-33.0); MCV 97 fL (80-95); Monocytes % 12.4 %; Neutrophils % 49.3 %; Nucleated RBC 1.9 % (0.0-0.3); Platelet Count 146 10^3/uL (130-400); RBC 2.69 10^6/uL (4.36-5.78); RDW 17.9 % (11.8-14.1); WBC 2.09 10^3/uL (4.4-10.8)
[2024-05-16 08:08] LABS: ALT 14 U/L (16-63); AST 20 U/L (15-37); Albumin 2.6 g/dL (3.4-5.0); Alkaline Phosphatase 102 U/L (46-116); BUN 18 mg/dL (7-18); Bilirubin, Total 1.58 mg/dL (0.2-1.0); CREATININE 1.4 mg/dL (0.70-1.30); Calcium 8.8 mg/dL (8.5-10.1); Chloride 109 mmol/L (98-107); Estimated GFR 49.25 (mL/min/1.73m2); Glucose 124 mg/dL (74-106); Potassium 3.8 mmol/L (3.5-5.1); Sodium 144 mmol/L (136-145); Total Protein 6.8 g/dL (6.4-8.2)
[2024-05-16 08:09] LABS: Diff Comment Diff Reviewed
[2024-05-16 08:10] LABS: Hypochromasia 2+; Polychromasia Present
[2024-05-16 09:06] VITALS: BP 99/60; PULSE 91; RESP 18; TEMP 36.5; O2SAT 95
[2024-05-16 09:21] VITALS: BP 103/58; PULSE 94; RESP 17; TEMP 36.8; O2SAT 100
[2024-05-16 09:44] VITALS: BP 95/67; PULSE 92; RESP 18; TEMP 37; O2SAT 100
[2024-05-16] MEDS: Normal Saline Flush 5 ML SYR IVP (09:53)
[2024-05-16 10:18] VITALS: BP 97/70; PULSE 92; RESP 19; TEMP 37; O2SAT 98
[2024-05-16 11:00] VITALS: BP 98/63; PULSE 94; RESP 19; TEMP 37.1; O2SAT 99
[2024-05-19 07:28] LABS: Abs Immature Grans 0.01 10^3/uL (0.0-0.06); Absolute Basophil Count 0.02 10^3/uL (0.0-0.2); Absolute Lymphocyte Count 0.64 10^3/uL (1.2-3.4); Absolute Monocyte Count 0.32 10^3/uL (0.1-0.8); Absolute Neutrophil Count 1.08 10^3/uL (1.2-6.7); HGB 8.1 g/dL (13.5-17.5); Immature Grans % 0.5 %; Lymphocytes % 30.9 %; MCH 28.8 pg (27.0-33.0); MCV 96 fL (80-95); Monocytes % 15.5 %; Neutrophils % 52.1 %; Platelet Count 127 10^3/uL (130-400); RBC 2.81 10^6/uL (4.36-5.78); RDW 17.7 % (11.8-14.1); RDW-SD 60.4 fL; WBC 2.07 10^3/uL (4.4-10.8)
[2024-05-19 07:41] LABS: Anisocytosis 2+; Diff Comment RBC Morph Reviewed; Polychromasia Present
[2024-05-19 07:42] LABS: Poikilocytes 2+
[2024-05-19 07:47] VITALS: BP 117/82; PULSE 74; RESP 15; TEMP 37; O2SAT 97
[2024-05-19 07:47] LABS: ALT 10 U/L (16-63); AST 21 U/L (15-37); Albumin 2.5 g/dL (3.4-5.0); Alkaline Phosphatase 107 U/L (46-116); Anion Gap 6.1 mmol/L (3-11); BUN 20 mg/dL (7-18); Bilirubin, Total 1.5 mg/dL (0.2-1.0); CO2 26.9 mmol/L (21.0-32.0); CREATININE 1.4 mg/dL (0.70-1.30); Calcium 8.9 mg/dL (8.5-10.1); Chloride 110 mmol/L (98-107); Estimated GFR 49.25 (mL/min/1.73m2); Glucose 120 mg/dL (74-106); Potassium 4.3 mmol/L (3.5-5.1); Sodium 143 mmol/L (136-145); Total Protein 6.7 g/dL (6.4-8.2)
[2024-05-19] MEDS: Normal Saline Flush 10 ML SYR IVP (07:52)
[2024-05-23 07:41] LABS: Abs Immature Grans 0.02 10^3/uL (0.0-0.06); Absolute Basophil Count 0.01 10^3/uL (0.0-0.2); Absolute Eosinophil Count 0.01 10^3/uL (0.0-0.7); Absolute Monocyte Count 0.23 10^3/uL (0.1-0.8); Absolute Neutrophil Count 1.37 10^3/uL (1.2-6.7); Basophils % 0.4 %; Eosinophils % 0.4 %; HCT 24.8 % (40.0-50.0); HGB 7.2 g/dL (13.5-17.5); Immature Grans % 0.9 %; Lymphocytes % 26.8 %; MCH 27.9 pg (27.0-33.0); MCV 96 fL (80-95); MPV 10.6 fL (8.0-11.0); Monocytes % 10.3 %; Neutrophils % 61.2 %; Nucleated RBC 2.2 % (0.0-0.3); Platelet Count 116 10^3/uL (130-400); RBC 2.58 10^6/uL (4.36-5.78); RDW 17.1 % (11.8-14.1); RDW-SD 59.2 fL; WBC 2.24 10^3/uL (4.4-10.8)
[2024-05-23 08:06] LABS: ALT 15 U/L (16-63); AST 18 U/L (15-37); Albumin 2.5 g/dL (3.4-5.0); Alkaline Phosphatase 110 U/L (46-116); Anion Gap 9.5 mmol/L (3-11); BUN 23 mg/dL (7-18); Bilirubin, Total 1.3 mg/dL (0.2-1.0); CO2 25.5 mmol/L (21.0-32.0); CREATININE 1.1 mg/dL (0.70-1.30); Calcium 8.9 mg/dL (8.5-10.1); Chloride 108 mmol/L (98-107); Estimated GFR 65.79 (mL/min/1.73m2); Glucose 141 mg/dL (74-106); Potassium 4.2 mmol/L (3.5-5.1); Sodium 143 mmol/L (136-145); Total Protein 6.7 g/dL (6.4-8.2)
[2024-05-23 08:42] VITALS: BP 107/61; PULSE 103; RESP 19; TEMP 37.1; O2SAT 100
[2024-05-23 09:00] VITALS: BP 115/74; PULSE 91; RESP 18; TEMP 37.1; O2SAT 99
[2024-05-23 09:49] VITALS: BP 117/63; PULSE 90; RESP 19; TEMP 36.5; O2SAT 98
[2024-05-23 10:25] VITALS: BP 109/66; PULSE 96; RESP 18; TEMP 36.9; O2SAT 98
[2024-05-23] MEDS: Normal Saline Flush 5 ML SYR IVP (12:00)
[2024-05-26 07:40] LABS: Abs Immature Grans 0.01 10^3/uL (0.0-0.06); Absolute Basophil Count 0.01 10^3/uL (0.0-0.2); Absolute Eosinophil Count 0.01 10^3/uL (0.0-0.7); Absolute Lymphocyte Count 0.57 10^3/uL (1.2-3.4); Absolute Neutrophil Count 1.23 10^3/uL (1.2-6.7); Basophils % 0.5 %; Eosinophils % 0.5 %; HGB 7.5 g/dL (13.5-17.5); Immature Grans % 0.5 %; Lymphocytes % 28.1 %; MCH 27.7 pg (27.0-33.0); MCHC 28.8 % (32.0-36.0); MCV 96 fL (80-95); MPV 10.5 fL (8.0-11.0); Monocytes % 9.9 %; Neutrophils % 60.5 %; Nucleated RBC 1.5 % (0.0-0.3); Platelet Count 128 10^3/uL (130-400); RBC 2.71 10^6/uL (4.36-5.78); RDW 16.8 % (11.8-14.1); RDW-SD 57.9 fL; WBC 2.03 10^3/uL (4.4-10.8)
[2024-05-26 07:53] LABS: ALT 15 U/L (16-63); AST 23 U/L (15-37); Albumin 2.6 g/dL (3.4-5.0); Alkaline Phosphatase 100 U/L (46-116); Anion Gap 7.9 mmol/L (3-11); BUN 20 mg/dL (7-18); Bilirubin, Total 1.4 mg/dL (0.2-1.0); CO2 26.1 mmol/L (21.0-32.0); CREATININE 1.3 mg/dL (0.70-1.30); Chloride 109 mmol/L (98-107); Estimated GFR 53.84 (mL/min/1.73m2); Glucose 123 mg/dL (74-106); Potassium 4.1 mmol/L (3.5-5.1); Sodium 143 mmol/L (136-145); Total Protein 6.9 g/dL (6.4-8.2)
[2024-05-26] MEDS: Darbepoetin 300 MCG SYR SC (08:12)
[2024-05-26 09:28] VITALS: BP 109/70; PULSE 88; RESP 16; TEMP 36.5; O2SAT 99
[2024-05-26 09:30] VITALS: BP 106/71; PULSE 94; RESP 14; TEMP 36.4; O2SAT 100
[2024-05-26] MEDS: Normal Saline Flush 5 ML SYR IVP (09:46)
[2024-05-26 09:55] VITALS: BP 105/70; PULSE 96; RESP 16; TEMP 36.6; O2SAT 100
[2024-05-26 10:25] VITALS: BP 114/62; PULSE 95; RESP 16; TEMP 36.9; O2SAT 99
[2024-05-26 11:25] VITALS: BP 117/79; PULSE 101; RESP 16; TEMP 36.5; O2SAT 99
[2024-05-30] VITALS (8 sets, daily range): BP systolic 99–118; BP diastolic 59–82; PULSE 77–96; RESP 14–18; TEMP 36.5–37.1; O2SAT 95–100
[2024-05-30 07:29] LABS: Abs Immature Grans 0.01 10^3/uL (0.0-0.06); Absolute Basophil Count 0.01 10^3/uL (0.0-0.2); Absolute Monocyte Count 0.26 10^3/uL (0.1-0.8); Absolute Neutrophil Count 1.12 10^3/uL (1.2-6.7); Basophils % 0.5 %; HCT 23.7 % (40.0-50.0); Immature Grans % 0.5 %; Lymphocytes % 33.3 %; MCHC 29.1 % (32.0-36.0); MCV 96 fL (80-95); MPV 10.2 fL (8.0-11.0); Monocytes % 12.4 %; Neutrophils % 53.3 %; Nucleated RBC 1.9 % (0.0-0.3); Platelet Count 131 10^3/uL (130-400); RBC 2.46 10^6/uL (4.36-5.78); RDW 17.1 % (11.8-14.1); RDW-SD 59.2 fL
[2024-05-30 07:52] LABS: ALT 15 U/L (16-63); AST 19 U/L (15-37); Albumin 2.5 g/dL (3.4-5.0); Alkaline Phosphatase 98 U/L (46-116); BUN 24 mg/dL (7-18); Bilirubin, Total 1.3 mg/dL (0.2-1.0); CREATININE 1.3 mg/dL (0.70-1.30); Calcium 8.8 mg/dL (8.5-10.1); Chloride 108 mmol/L (98-107); Estimated GFR 53.84 (mL/min/1.73m2); Glucose 124 mg/dL (74-106); Potassium 4.2 mmol/L (3.5-5.1); Sodium 142 mmol/L (136-145); Total Protein 6.6 g/dL (6.4-8.2)
[2024-05-30 08:17] LABS: Diff Comment Diff Reviewed; HGB 6.9 g/dL (13.5-17.5)
[2024-05-30 08:18] LABS: Hypochromasia 2+
[2024-05-30] MEDS: Normal Saline Flush 5 ML SYR IVP (10:35)
[2024-06-02 07:41] LABS: Abs Immature Grans 0.01 10^3/uL (0.0-0.06); Absolute Basophil Count 0.01 10^3/uL (0.0-0.2); Absolute Eosinophil Count 0.01 10^3/uL (0.0-0.7); Absolute Lymphocyte Count 0.68 10^3/uL (1.2-3.4); Absolute Monocyte Count 0.27 10^3/uL (0.1-0.8); Absolute Neutrophil Count 1.66 10^3/uL (1.2-6.7); Basophils % 0.4 %; Eosinophils % 0.4 %; HGB 8.2 g/dL (13.5-17.5); Immature Grans % 0.4 %; Lymphocytes % 25.8 %; MCH 29.3 pg (27.0-33.0); MCHC 30.4 % (32.0-36.0); MCV 96 fL (80-95); MPV 10.8 fL (8.0-11.0); Monocytes % 10.2 %; Neutrophils % 62.8 %; Nucleated RBC 1.9 % (0.0-0.3); Platelet Count 142 10^3/uL (130-400); RDW 17.6 % (11.8-14.1); RDW-SD 59.9 fL; WBC 2.64 10^3/uL (4.4-10.8)
[2024-06-02 07:54] LABS: Diff Comment Diff Reviewed; Hypochromasia 2+; Poikilocytes 2+; Polychromasia Present
[2024-06-02] MEDS: Normal Saline Flush 5 ML SYR IVP (08:07)
[2024-06-02 08:09] LABS: ALT 16 U/L (16-63); AST 20 U/L (15-37); Albumin 2.6 g/dL (3.4-5.0); Alkaline Phosphatase 103 U/L (46-116); BUN 26 mg/dL (7-18); Bilirubin, Total 1.4 mg/dL (0.2-1.0); CREATININE 1.2 mg/dL (0.70-1.30); Calcium 8.9 mg/dL (8.5-10.1); Chloride 107 mmol/L (98-107); Estimated GFR 59.26 (mL/min/1.73m2); Glucose 116 mg/dL (74-106); Potassium 3.9 mmol/L (3.5-5.1); Sodium 136 mmol/L (136-145); Total Protein 6.7 g/dL (6.4-8.2)
[2024-06-06] VITALS (9 sets, daily range): BP systolic 102–120; BP diastolic 64–80; PULSE 83–118; RESP 18–20; TEMP 36.3–37.1; O2SAT 96–100
[2024-06-06 07:36] LABS: Abs Immature Grans 0.04 10^3/uL (0.0-0.06); Absolute Basophil Count 0.01 10^3/uL (0.0-0.2); Absolute Lymphocyte Count 0.91 10^3/uL (1.2-3.4); Absolute Monocyte Count 0.27 10^3/uL (0.1-0.8); Absolute Neutrophil Count 1.39 10^3/uL (1.2-6.7); Basophils % 0.4 %; Immature Grans % 1.5 %; Lymphocytes % 34.7 %; MCH 27.9 pg (27.0-33.0); MCHC 28.9 % (32.0-36.0); MCV 97 fL (80-95); MPV 9.7 fL (8.0-11.0); Monocytes % 10.3 %; Neutrophils % 53.1 %; Nucleated RBC 2.7 % (0.0-0.3); Platelet Count 146 10^3/uL (130-400); RBC 2.08 10^6/uL (4.36-5.78); RDW 16.7 % (11.8-14.1); RDW-SD 58.4 fL; WBC 2.62 10^3/uL (4.4-10.8)
[2024-06-06 07:51] LABS: ALT 14 U/L (16-63); AST 21 U/L (15-37); Albumin 2.5 g/dL (3.4-5.0); Alkaline Phosphatase 97 U/L (46-116); Anion Gap 10.8 mmol/L (3-11); BUN 29 mg/dL (7-18); Bilirubin, Total 1.1 mg/dL (0.2-1.0); CO2 23.2 mmol/L (21.0-32.0); CREATININE 1.2 mg/dL (0.70-1.30); Calcium 8.6 mg/dL (8.5-10.1); Chloride 110 mmol/L (98-107); Estimated GFR 59.26 (mL/min/1.73m2); Glucose 133 mg/dL (74-106); Potassium 3.9 mmol/L (3.5-5.1); Sodium 144 mmol/L (136-145); Total Protein 6.4 g/dL (6.4-8.2)
[2024-06-06 08:06] LABS: Anisocytosis 1+; Diff Comment RBC Morph Reviewed; HCT 20.1 % (40.0-50.0); HGB 5.8 g/dL (13.5-17.5); Hypochromasia 1+
[2024-06-06 08:07] LABS: Poikilocytes 1+; Polychromasia Present
[2024-06-06] MEDS: Normal Saline Flush 5 ML SYR IVP (13:48)
[2024-06-09] VITALS (9 sets, daily range): BP systolic 106–133; BP diastolic 63–84; PULSE 96–109; RESP 16–18; TEMP 36.5–37.1; O2SAT 92–100
[2024-06-09] MEDS: Normal Saline Flush 5 ML SYR IVP (07:20)
[2024-06-09 07:23] LABS: Abs Immature Grans 0.02 10^3/uL (0.0-0.06); Absolute Basophil Count 0.01 10^3/uL (0.0-0.2); Absolute Lymphocyte Count 0.94 10^3/uL (1.2-3.4); Absolute Monocyte Count 0.23 10^3/uL (0.1-0.8); Absolute Neutrophil Count 1.64 10^3/uL (1.2-6.7); Basophils % 0.4 %; Immature Grans % 0.7 %; Lymphocytes % 33.1 %; MCH 28.8 pg (27.0-33.0); MCHC 30.2 % (32.0-36.0); MCV 95 fL (80-95); MPV 10.1 fL (8.0-11.0); Monocytes % 8.1 %; Neutrophils % 57.7 %; Nucleated RBC 1.4 % (0.0-0.3); Platelet Count 147 10^3/uL (130-400); RBC 2.15 10^6/uL (4.36-5.78); RDW 15.9 % (11.8-14.1); RDW-SD 53.9 fL; WBC 2.84 10^3/uL (4.4-10.8)
[2024-06-09 07:39] LABS: ALT 16 U/L (16-63); AST 22 U/L (15-37); Albumin 2.4 g/dL (3.4-5.0); Alkaline Phosphatase 89 U/L (46-116); Anion Gap 10.4 mmol/L (3-11); BUN 27 mg/dL (7-18); Bilirubin, Total 1.5 mg/dL (0.2-1.0); CO2 22.6 mmol/L (21.0-32.0); CREATININE 1.2 mg/dL (0.70-1.30); Calcium 8.6 mg/dL (8.5-10.1); Chloride 108 mmol/L (98-107); Estimated GFR 59.26 (mL/min/1.73m2); Glucose 142 mg/dL (74-106); Potassium 4.1 mmol/L (3.5-5.1); Sodium 141 mmol/L (136-145); Total Protein 6.3 g/dL (6.4-8.2)
[2024-06-09 08:09] LABS: Diff Comment RBC Morph Reviewed
[2024-06-09 08:10] LABS: Hypochromasia 1+; Poikilocytes 1+; Polychromasia Present
[2024-06-09 08:12] LABS: HCT 20.5 % (40.0-50.0); HGB 6.2 g/dL (13.5-17.5)
[2024-06-09] MEDS: Darbepoetin 300 MCG SYR SC (09:13)
== END 2024-06-12 23:59 | disposition home or self-care (01) ==
LOC: INF 03:23
PROVIDERS: Nurse Practitioner Adult Health; PCP Family Medicine; Visit Provider Family Medicine
DX: D46.9 Myelodysplastic syndrome, unspecified
CPT/HCPCS: 36415; 36430; 80053; 86850; 86900; 86901; 86920; 96372; 85025; J0881; P9016

== ENCOUNTER 2024-06-13 11:02 | Emergency (ER) | payer MEDICARE, SELFPAY ==
[2024-06-13] VITALS (35 sets, daily range): BP systolic 89–140; BP diastolic 57–94; PULSE 104–126; RESP 20–38; TEMP 37; O2SAT 91–97
--- NOTE | 2024-06-13 11:30 | DI.RAD_ITS ---
Exam(s) XR CHEST 2V PA LATERAL EXAM: XR CHEST 2V PA LATERAL CLINICAL HISTORY: Cough TECHNIQUE: 2D digital imaging was performed of the chest. Two images were obtained. PA and lateral views were obtained. COMPARISON: CT CT CHEST WO from 03/10/2024 CR XR CHEST 2V PA LATERAL from 03/23/2024 CR XR PORTABLE CHEST AP from 04/07/2024 FINDINGS: MEDIASTINUM: Normal. HEART: Normal. There is an aortic valve prosthesis. PULMONARY VASCULATURE: Normal. LUNGS: Bilateral pulmonary opacities are present, left greater than right. PLEURAL SPACE: The peripheral opacities previously seen in the left hemithorax have decreased overall compared to the examination from 04/07/2024. There is however an opacity seen in the left lung apex which may reflect a loculated effusion. There is blunting of the right costophrenic angle which may reflect a small right pleural effusion. Pleural calcifications are again seen. BONE:Within normal limits for the patient's age. Sternal wires are present. OTHER FINDINGS:Normal. IMPRESSION: 1. Overall the appearance of the loculated fluid collection in the left hemithorax have decreased. T his is particularly noted laterally and inferiorly. There does appear to be slight increase in the l oculation in the left lung apex since the prior examination. Persistent right pleural effusion is pr esent which is small. 2. Bilateral pulmonary opacities, left greater than right. Infection should be considered. 3. Pleural calcifications are again present. DATA REPOSITORY: RADIATION DOSE DELIVERED:
--- NOTE | 2024-06-13 11:45 | ED.GENADUL_ITS ---
Discharge Plan Disposition Patient Disposition: Home Condition: Stable Discharge Details Clinical Impression: Pneumonia, Pleural effusion, Dehydration Primary Care Provider: Rafiq El ED Provider: Jeannie Stratton Home Meds and New Rx's Prescriptions: New doxycycline hyclate 100 mg capsule 100 mg PO BID 10 Days Qty: 20 0RF Rx Instructions: Take 1 capsule by mouth twice daily for the next 10 days Continued ferrous sulfate [iron] 325 mg (65 mg iron) tablet 325 mg PO .every other Patient Comments: patient takes every other day sucralfate 1 gram Tablet 1 g PO AC & HS Qty: 120 0RF metoprolol succinate 100 mg tablet extended release 24 hr 150 mg PO DAILY Qty: 30 0RF pantoprazole 40 mg tablet,delayed release (DR/EC) 40 mg PO BID Qty: 180 0RF Discharge Instructions Instructions: Dehydration, Adult ED, Pneumonia, Adult ED Additional Instructions: At this time he still does not have the pleural effusion on the fluid in the l eft side of his lung. Will treat for possible pneumonia. He was given a IV dose of doxycycline while here in the emergency department. Please take the antibiotic twice daily with yogurt or a probiotic as directed. Follow up with primary care provider in 3-5 days. Return to ED sooner if any worsening or concerns. Thank you for allowing us to care for you today. Referrals: Rafiq El MD [Primary Care Provider] - 3 days HPI General Mode of arrival: wheelchair . Date/Time Provider Initiated Documentation: 06/13/24 11:35 . Limitations to Documentation: no limitations . Information obtained by: patient, family, RN notes reviewed and old records reviewed . HPI Narrative: 83-year-old male presents to the ER with a chief complaint of productive cough and tachycardia. Patient has a history of myelodysplastic syndrome and receives frequent blood transfusions. He did have 2 units given on Wednesday and a unit of PRBCs today. Sent here from the infusion clinic for high heart rate. Patient denies any chest pain he does endorse productive cough. He is alert and oriented x 3. He does appear pale. He does normally take 150 mg of metoprolol which he is not sure if he took that this morning. He presents with his daughter. He does have a history of chronic kidney disease stage III,, atrial flutter, he does see palliative care, does have a history of an adenoma of colon diverticulosis prosthetic aortic valve replacement appendectomy. Related Data Home Medications ?Medication ?Instructions ?Recorded ?Confirmed ferrous sulfate 325 mg (65 mg 325 mg PO .every other 11/22/23 06/13/24 iron) tablet (iron) metoprolol succinate 100 mg 150 mg (1.5 x 100 mg) PO DAILY #30 12/01/23 06/13/24 tablet,extended release 24 hr tabs pantoprazole 40 mg tablet,delayed 40 mg PO BID #180 tabs 12/01/23 06/13/24 release sucralfate 1 gram tablet 1 g PO AC & HS #120 tabs 12/01/23 06/13/24 doxycycline hyclate 100 mg capsule 100 mg PO BID Pneumonia 10 days 06/13/24 #20 caps Previous Rx's ?Medication ?Instructions ?Recorded metoprolol succinate 100 mg 150 mg (1.5 x 100 mg) PO DAILY #30 12/01/23 tablet,extended release 24 hr tabs pantoprazole 40 mg tablet,delayed 40 mg PO BID #180 tabs 12/01/23 release sucralfate 1 gram tablet 1 g PO AC & HS #120 tabs 12/01/23 doxycycline hyclate 100 mg capsule 100 mg PO BID Pneumonia 10 days 06/13/24 #20 caps Allergies Allergy/AdvReac Type Severity Reaction Status Date / Time PEACH SKINS AdvReac Other (See Uncoded 06/13/24 11:24 Comment) General Stated Complaint: RespSymp WILBERT: 3 Review of Systems All systems reviewed & are unremarkable except as noted in HPI and below Cardiovascular Cardiovascular: Denies chest pain, Reports rapid heart rate and Reports dyspnea Respiratory Respiratory: Reports chest congestion, Reports cough and Reports dyspnea Exam Narrative Exam Narrative: Constitutional: Alert and oriented x3. Appears stated age. Normal body habitus. Appears chronically ill. Head: Normocephalic, no trauma. Eyes: Pupils PERRL, Red reflex noted, EOM's intact. Eyelids symmetrical without lesions, discharge, or swelling. ENT: Bilateral TM's WNL, External ear normal to inspection, no mastoid TTP, swelling, or erythema, Nasal turbinates WNL, no nasal discharge. Normal dentition, Posterior pharynx WNL, no exudate. Chest: RRR, Normal S1, S2, distal pulses intact. Resp: Lungs clear to auscultation bilaterally, no wheezes, rales, or rhonchi. Abdomen: Soft, non-distended, Normoactive bowel sounds all 4 quads. Musculoskeletal: Moves all 4 extremities without difficulty. Skin: Pale. No suspicious rashes or lesions. Capillary refill less than 2 sec. Neurologic: Cranial nerves II-XII intact. Alert and oriented x 3. Motor: No deficits noted. Sensory: Intact bilaterally all 4 extremities. Hematologic/Lymphatic: No ecchymosis, no lymphadenopathy. Course Vital Signs Vital signs: Vital Signs Temperature 37.0 C 06/13/24 11:19 Pulse 121 H 06/13/24 11:19 Respiratory Rate 20 06/13/24 11:19 Blood Pressure 105/67 06/13/24 11:19 Pulse Oximetry 93 06/13/24 11:19 Temperature 37.0 C 06/13/24 11:19 Temperature Source Oral 06/13/24 11:19 Pulse 121 H 06/13/24 11:19 Respiratory Rate 20 06/13/24 11:19 Blood Pressure 105/67 06/13/24 11:19 Blood Pressure Position Sitting 06/13/24 11:19 Pulse Oximetry 93 06/13/24 11:19 Oxygen Delivery Method Room Air 06/13/24 11:19 Oxygen Flow Rate 0 06/13/24 11:19 Medical Decision Making 83-year-old male presents to the ER with a chief complaint of productive cough and tachycardia. Patient has a history of myelodysplastic syndrome and receives frequent blood transfusions. He did have 2 units given on Wednesday and a unit of PRBCs today. Sent here from the infusion clinic for high heart rate. Patient denies any chest pain he does endorse productive cough. He is alert and oriented x 3. He does appear pale. He does normally take 150 mg of metoprolol which he is not sure if he took that this morning. He presents with his daughter. He does have a history of chronic kidney disease stage III,, atrial flutter, he does see palliative care, does have a history of an adenoma of colon diverticulosis prosthetic aortic valve replacement appendectomy. Patient did have labs today including a CBC and CMP, I do not feel that repeat of labs at this time is necessary. He does have a elevated white blood cell count of 13. Fluvid swab ordered, chest x-ray. Flu RSV COVID negative. Patient does have a history of this left lung loculated fluid collection which has been present for the last few months. He does have a persistent right pleural effusion which is small. I will treat him for possible infection due to his increased white blood cell count of 13 and increased heart rate. I did discuss admission with the daughter who verbalized understanding says that she feels comfortable taking him home that he usually sleeps after getting blood as it usually makes him tired. Patient is currently getting the doxycycline and 500 cc normal saline. He is eating a lunch tray at this time. He did urinate approximately 200 cc of dark yellow urine. Blood cultures are pending at this time. I do suspect dehydration as well. Medical Records Medical records reviewed: Yes I reviewed the patient's medical records. Imaging Data Radiologic Study: Imaging: X-Ray Radiologist's impression: FINDINGS: MEDIASTINUM: Normal. HEART: Normal. There is an aortic valve prosthesis. PULMONARY VASCULATURE: Normal. LUNGS: Bilateral pulmonary opacities are present, left greater than right. PLEURAL SPACE: The peripheral opacities previously seen in the left hemithorax have decreased overall compared to the examination from 04/07/2024. There is however an opacity seen in the left lung apex which may reflect a loculated effusion. There is blunting of the right costophrenic angle which may reflect a small right pleural effusion. Pleural calcifications are again seen. BONE:Within normal limits for the patient's age. Sternal wires are present. OTHER FINDINGS:Normal. IMPRESSION: 1. Overall the appearance of the loculated fluid collection in the left hemithorax have decreased. This is particularly noted laterally and inferiorly. There does appear to be slight increase in the loculation in the left lung apex since the prior examination. Persistent right pleural effusion is present which is small. 2. Bilateral pulmonary opacities, left greater than right. Infection should be considered. 3. Pleural calcifications are again present. Lab Data Lab results reviewed: Yes I reviewed the patient's lab results. Labs: 06/13/24 14:18 Blood Blood Culture - Pending 06/13/24 14:00 Blood Blood Culture - Pending Laboratory Tests Range/Units 06/13/24 12:08 COVID-19 Source Nasopharynx SARS-CoV-2 (PCR) (Negative) Negative Influenza Type A (PCR) (Negative) Negative Influenza Type B (PCR) (Negative) Negative RSV (PCR) (Negative) Negative Quality:SDOH Health Related Social Needs: Health related social needs details denied problems PFSH All Active Problems (Updated 06/13/24 @ 15:43 by Jeannie Stratton NP) Dehydration (Acute) Pleural effusion (Acute) Pneumonia (Acute) Palliative care patient (Acute) Recurrent gastrointestinal hemorrhage (Acute) Pneumothorax, iatrogenic (Acute) Pleural effusion (Acute) Atrial fibrillation (Chronic) Chronic anticoagulation (Chronic) Myelodysplastic syndrome (Chronic) Anemia (Chronic) Encounter for blood transfusion (Acute) Anemia (Chronic) H/O mechanical aortic valve replacement (Chronic) Diverticulosis of colon without diverticulitis (Chronic) Upper GI bleed (Acute) 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 ear (Acute) Sensorineural hearing loss (SNHL) of right ear with restricted hearing of left e ar (Acute) Sensorineural hearing loss of combined sites, bilateral (Acute 08/03/16) Medical History Elevated troponin level not due to acute coronary syndrome CKD (chronic kidney disease) stage 3, GFR 30-59 ml/min DNR (do not resuscitate) Not sure about intubation, +treat, +transfer, +abx, +IV fluids Advanced care planning/counseling discussion Palliative care encounter Atrial flutter Prosthetic cardiac valve vegetation Intracranial hemorrhage Discharge planning issues diverticulosis adenoma colon polyp Prosthetic Aortic Valve Overweight Hearing loss bilat Surgical History History of thoracentesis (~02/2024) H/O prosthetic aortic valve replacement redo of aortic valve hernia/hydrocele repair Appendectomy Aortic valve replaced Social History Smoking/Tobacco Use Status: Current-Occasional Smoking risk assessment performed?: Yes Alcohol Intake: current Alcohol Intake frequency: holidays/special occasions only Alcohol type: wine Drug use: Never Substance use type: does not use Housing: house Do you feel safe at home: Yes Do you feel safe in your relationship?: Yes
[2024-06-13 12:51] LABS: COVID-19 PCR Negative (Negative); Influenza A PCR Negative (Negative); Influenza B PCR Negative (Negative); RSV PCR Negative (Negative)
[2024-06-13 12:58] LABS: Source Nasopharynx
[2024-06-13] MEDS: Normal Saline 500 ML IV (14:24)
[2024-06-13] MEDS: DOXYCYCLINE 100 MG in Normal Saline 100 ML IVPB (14:25)
[2024-06-13] MEDS: Doxycycline Hyclate 100 MG, 2 CAPS/BTL PO (15:48)
== END 2024-06-13 16:00 | disposition home or self-care (01) ==
PROVIDERS: Emergency Provider Registered Nurse Emergency; PCP Family Medicine
DX: J18.9 Pneumonia, unspecified organism (principal); J90 Pleural effusion, not elsewhere classified; E86.0 Dehydration; N18.30 Chronic kidney disease, stage 3 unspecified; I48.92 Unspecified atrial flutter; F17.200 Nicotine dependence, unspecified, uncomplicated; Z66 Do not resuscitate
CPT/HCPCS: 36415; 36430; 80053; 86850; 86900; 86901; 86920; 87040; 87637; 96365; 99284; 71046; 85025; P9016

== ENCOUNTER 2024-07-07 00:31 | Outpatient (RCR) | payer MEDICARE, SELFPAY ==
[2024-06-13] VITALS (7 sets, daily range): BP systolic 102–116; BP diastolic 59–81; PULSE 121–123; RESP 26–28; TEMP 36.7–37.6; O2SAT 94–96
[2024-06-13 07:39] LABS: Abs Immature Grans 0.09 10^3/uL (0.0-0.06); Absolute Basophil Count 0.01 10^3/uL (0.0-0.2); Absolute Eosinophil Count 0.03 10^3/uL (0.0-0.7); Absolute Lymphocyte Count 0.82 10^3/uL (1.2-3.4); Absolute Monocyte Count 1.33 10^3/uL (0.1-0.8); Absolute Neutrophil Count 11.45 10^3/uL (1.2-6.7); Basophils % 0.1 %; Eosinophils % 0.2 %; HCT 23.7 % (40.0-50.0); HGB 7.2 g/dL (13.5-17.5); Immature Grans % 0.7 %; MCH 29.1 pg (27.0-33.0); MCHC 30.4 % (32.0-36.0); MCV 96 fL (80-95); Monocytes % 9.7 %; Neutrophils % 83.3 %; Platelet Count 155 10^3/uL (130-400); RBC 2.47 10^6/uL (4.36-5.78); RDW 17.3 % (11.8-14.1); RDW-SD 59.9 fL; WBC 13.74 10^3/uL (4.4-10.8)
[2024-06-13 07:52] LABS: ALT 11 U/L (16-63); AST 25 U/L (15-37); Albumin 2.6 g/dL (3.4-5.0); Alkaline Phosphatase 92 U/L (46-116); Anion Gap 8.2 mmol/L (3-11); BUN 24 mg/dL (7-18); Bilirubin, Total 1.5 mg/dL (0.2-1.0); CO2 24.8 mmol/L (21.0-32.0); CREATININE 1.3 mg/dL (0.70-1.30); Calcium 9.3 mg/dL (8.5-10.1); Chloride 109 mmol/L (98-107); Estimated GFR 53.84 (mL/min/1.73m2); Glucose 132 mg/dL (74-106); Potassium 3.9 mmol/L (3.5-5.1); Sodium 142 mmol/L (136-145); Total Protein 6.6 g/dL (6.4-8.2)
[2024-06-13] MEDS: Normal Saline Flush 10 ML SYR IVP (10:40)
[2024-06-16] VITALS (8 sets, daily range): BP systolic 105–114; BP diastolic 61–84; PULSE 88–100; RESP 22–24; TEMP 36.6–37.2; O2SAT 96–99
[2024-06-16 07:45] LABS: Abs Immature Grans 0.08 10^3/uL (0.0-0.06); Absolute Basophil Count 0.01 10^3/uL (0.0-0.2); Absolute Eosinophil Count 0.02 10^3/uL (0.0-0.7); Absolute Lymphocyte Count 0.87 10^3/uL (1.2-3.4); Absolute Monocyte Count 0.33 10^3/uL (0.1-0.8); Absolute Neutrophil Count 4.42 10^3/uL (1.2-6.7); Basophils % 0.2 %; Eosinophils % 0.3 %; HCT 24.9 % (40.0-50.0); HGB 7.6 g/dL (13.5-17.5); Immature Grans % 1.4 %; Lymphocytes % 15.2 %; MCH 29.5 pg (27.0-33.0); MCHC 30.5 % (32.0-36.0); MCV 97 fL (80-95); MPV 10.2 fL (8.0-11.0); Monocytes % 5.8 %; Neutrophils % 77.1 %; Nucleated RBC 2.4 % (0.0-0.3); Platelet Count 143 10^3/uL (130-400); RBC 2.58 10^6/uL (4.36-5.78); RDW 16.4 % (11.8-14.1); RDW-SD 57.8 fL; WBC 5.73 10^3/uL (4.4-10.8)
[2024-06-16 07:59] LABS: ALT 16 U/L (16-63); AST 26 U/L (15-37); Albumin 2.4 g/dL (3.4-5.0); Alkaline Phosphatase 100 U/L (46-116); Anion Gap 9.4 mmol/L (3-11); BUN 19 mg/dL (7-18); Bilirubin, Total 1.3 mg/dL (0.2-1.0); CO2 24.6 mmol/L (21.0-32.0); CREATININE 1.2 mg/dL (0.70-1.30); Chloride 108 mmol/L (98-107); Estimated GFR 59.26 (mL/min/1.73m2); Glucose 130 mg/dL (74-106); Potassium 3.6 mmol/L (3.5-5.1); Sodium 142 mmol/L (136-145); Total Protein 6.5 g/dL (6.4-8.2)
[2024-06-16] MEDS: Normal Saline Flush 5 ML SYR IVP (09:09)
[2024-06-20 07:29] VITALS: BP 106/68; PULSE 96; RESP 24; TEMP 36.8; O2SAT 96
[2024-06-20 07:42] LABS: Abs Immature Grans 0.05 10^3/uL (0.0-0.06); Absolute Basophil Count 0.01 10^3/uL (0.0-0.2); Absolute Eosinophil Count 0.01 10^3/uL (0.0-0.7); Absolute Lymphocyte Count 0.79 10^3/uL (1.2-3.4); Absolute Monocyte Count 0.27 10^3/uL (0.1-0.8); Basophils % 0.2 %; Eosinophils % 0.2 %; HCT 25.8 % (40.0-50.0); HGB 7.8 g/dL (13.5-17.5); Immature Grans % 1.2 %; Lymphocytes % 18.7 %; MCHC 30.2 % (32.0-36.0); MCV 96 fL (80-95); MPV 10.3 fL (8.0-11.0); Monocytes % 6.4 %; Neutrophils % 73.3 %; Nucleated RBC 1.9 % (0.0-0.3); RBC 2.69 10^6/uL (4.36-5.78); RDW 16.3 % (11.8-14.1); WBC 4.23 10^3/uL (4.4-10.8)
[2024-06-20 07:52] LABS: Platelet Count 131 10^3/uL (130-400)
[2024-06-20 07:53] LABS: Diff Comment Diff Reviewed; Hypochromasia 2+; Poikilocytes 1+; Polychromasia Present
[2024-06-20 07:57] LABS: ALT 12 U/L (16-63); AST 19 U/L (15-37); Albumin 2.4 g/dL (3.4-5.0); Alkaline Phosphatase 91 U/L (46-116); Anion Gap 9.1 mmol/L (3-11); BUN 23 mg/dL (7-18); Bilirubin, Total 1.4 mg/dL (0.2-1.0); CO2 26.9 mmol/L (21.0-32.0); CREATININE 1.2 mg/dL (0.70-1.30); Chloride 107 mmol/L (98-107); Estimated GFR 59.26 (mL/min/1.73m2); Glucose 125 mg/dL (74-106); Potassium 3.8 mmol/L (3.5-5.1); Sodium 143 mmol/L (136-145); Total Protein 6.5 g/dL (6.4-8.2)
[2024-06-20] MEDS: Normal Saline Flush 10 ML SYR IVP (08:20)
[2024-06-20 08:42] VITALS: BP 104/59; PULSE 91; RESP 23; TEMP 36.8; O2SAT 96
[2024-06-20 08:56] VITALS: BP 103/58; PULSE 95; RESP 22; TEMP 36.7; O2SAT 99
[2024-06-20 09:26] VITALS: BP 113/61; PULSE 93; RESP 21; TEMP 36.7; O2SAT 98
[2024-06-23 07:31] LABS: Abs Immature Grans 0.04 10^3/uL (0.0-0.06); Absolute Basophil Count 0.01 10^3/uL (0.0-0.2); Absolute Eosinophil Count 0.01 10^3/uL (0.0-0.7); Absolute Lymphocyte Count 0.72 10^3/uL (1.2-3.4); Absolute Monocyte Count 0.18 10^3/uL (0.1-0.8); Basophils % 0.4 %; Eosinophils % 0.4 %; HCT 28.2 % (40.0-50.0); HGB 8.5 g/dL (13.5-17.5); Immature Grans % 1.5 %; Lymphocytes % 27.1 %; MCHC 30.1 % (32.0-36.0); MCV 96 fL (80-95); MPV 10.4 fL (8.0-11.0); Monocytes % 6.8 %; Neutrophils % 63.8 %; Nucleated RBC 1.9 % (0.0-0.3); Platelet Count 130 10^3/uL (130-400); RBC 2.93 10^6/uL (4.36-5.78); RDW 16.7 % (11.8-14.1); RDW-SD 56.9 fL; WBC 2.66 10^3/uL (4.4-10.8)
[2024-06-23 07:40] LABS: Anisocytosis 1+; Diff Comment RBC Morph Reviewed; Hypochromasia 2+; Polychromasia Present
[2024-06-23 07:41] LABS: Poikilocytes 1+
[2024-06-23 07:42] LABS: ALT 12 U/L (16-63); AST 21 U/L (15-37); Albumin 2.5 g/dL (3.4-5.0); Alkaline Phosphatase 93 U/L (46-116); Anion Gap 7.1 mmol/L (3-11); BUN 21 mg/dL (7-18); Bilirubin, Total 1.5 mg/dL (0.2-1.0); CO2 25.9 mmol/L (21.0-32.0); CREATININE 1.2 mg/dL (0.70-1.30); Calcium 9.2 mg/dL (8.5-10.1); Chloride 108 mmol/L (98-107); Estimated GFR 59.26 (mL/min/1.73m2); Glucose 128 mg/dL (74-106); Potassium 3.8 mmol/L (3.5-5.1); Sodium 141 mmol/L (136-145); Total Protein 6.7 g/dL (6.4-8.2)
[2024-06-23] MEDS: Darbepoetin 300 MCG SYR SC (07:44)
[2024-06-23] MEDS: Normal Saline Flush 5 ML SYR IVP (07:52)
[2024-06-27] VITALS (8 sets, daily range): BP systolic 90–111; BP diastolic 60–75; PULSE 92–117; RESP 22–23; TEMP 36.2–36.6; O2SAT 93–99
[2024-06-27] MEDS: Normal Saline Flush 10 ML SYR IVP (07:29)
[2024-06-27 07:48] LABS: HCT 22.3 % (40.0-50.0); MCH 28.1 pg (27.0-33.0); MCHC 29.1 % (32.0-36.0); MCV 97 fL (80-95); MPV 10.4 fL (8.0-11.0); Platelet Count 127 10^3/uL (130-400); RBC 2.31 10^6/uL (4.36-5.78); RDW 16.3 % (11.8-14.1); RDW-SD 57.6 fL; WBC 2.13 10^3/uL (4.4-10.8)
[2024-06-27 08:01] LABS: Absolute Neutrophil Count 1.15 10^3/uL (1.2-6.7)
[2024-06-27 08:02] LABS: Absolute Lymphocyte Count 0.87 10^3/uL (1.2-3.4); Absolute Monocyte Count 0.06 10^3/uL (0.1-0.8); Atypical Lymphocytes % 2 %; Diff Comment Manual Differential; Metamyelocytes % 1; Myelocytes % 1; RBC Morphology Normal
[2024-06-27 08:07] LABS: ALT 13 U/L (16-63); AST 21 U/L (15-37); Albumin 2.6 g/dL (3.4-5.0); Alkaline Phosphatase 91 U/L (46-116); Anion Gap 7.2 mmol/L (3-11); BUN 23 mg/dL (7-18); Bilirubin, Total 1.2 mg/dL (0.2-1.0); CO2 25.8 mmol/L (21.0-32.0); CREATININE 1.2 mg/dL (0.70-1.30); Calcium 9.1 mg/dL (8.5-10.1); Chloride 108 mmol/L (98-107); Estimated GFR 59.26 (mL/min/1.73m2); Glucose 128 mg/dL (74-106); Potassium 3.5 mmol/L (3.5-5.1); Sodium 141 mmol/L (136-145); Total Protein 6.7 g/dL (6.4-8.2)
[2024-06-27 08:08] LABS: HGB 6.5 g/dL (13.5-17.5)
[2024-06-30 07:33] LABS: Abs Immature Grans 0.02 10^3/uL (0.0-0.06); Absolute Monocyte Count 0.16 10^3/uL (0.1-0.8); HCT 24.7 % (40.0-50.0); HGB 7.5 g/dL (13.5-17.5); MCH 28.6 pg (27.0-33.0); MCHC 30.4 % (32.0-36.0); MCV 94 fL (80-95); MPV 9.4 fL (8.0-11.0); Platelet Count 116 10^3/uL (130-400); RBC 2.62 10^6/uL (4.36-5.78); RDW 16.8 % (11.8-14.1); RDW-SD 56.9 fL
[2024-06-30 07:49] LABS: ALT 14 U/L (16-63); AST 20 U/L (15-37); Albumin 2.6 g/dL (3.4-5.0); Alkaline Phosphatase 96 U/L (46-116); Anion Gap 10.2 mmol/L (3-11); BUN 26 mg/dL (7-18); Bilirubin, Total 1.2 mg/dL (0.2-1.0); CO2 24.8 mmol/L (21.0-32.0); CREATININE 1.2 mg/dL (0.70-1.30); Calcium 8.6 mg/dL (8.5-10.1); Chloride 107 mmol/L (98-107); Estimated GFR 59.26 (mL/min/1.73m2); Glucose 143 mg/dL (74-106); Potassium 3.8 mmol/L (3.5-5.1); Sodium 142 mmol/L (136-145); Total Protein 6.6 g/dL (6.4-8.2)
[2024-06-30 08:00] LABS: Absolute Eosinophil Count 0.02 10^3/uL (0.0-0.7); Absolute Lymphocyte Count 0.72 10^3/uL (1.2-3.4); Absolute Neutrophil Count 1.19 10^3/uL (1.2-6.7); Atypical Lymphocytes % 2 %
[2024-06-30 08:01] LABS: Diff Comment Manual Differential; Hypochromasia 2+; Polychromasia Present
[2024-06-30 08:11] LABS: WBC 1.95 10^3/uL (4.4-10.8)
[2024-06-30 08:59] VITALS: BP 109/73; PULSE 94; RESP 20; TEMP 36.4; O2SAT 98
[2024-06-30 09:14] VITALS: BP 103/59; PULSE 91; RESP 20; TEMP 36.3; O2SAT 96
[2024-06-30] MEDS: Normal Saline Flush 5 ML SYR IVP (09:26)
[2024-06-30 09:33] VITALS: BP 102/74; PULSE 96; RESP 20; TEMP 36.3; O2SAT 98
[2024-06-30 09:57] VITALS: BP 102/71; PULSE 86; RESP 22; TEMP 36.3; O2SAT 99
[2024-06-30 10:26] VITALS: BP 106/68; PULSE 87; RESP 20; TEMP 36.9; O2SAT 97
[2024-06-30 11:07] VITALS: BP 113/70; PULSE 92; RESP 22; TEMP 37; O2SAT 97
[2024-07-04] VITALS (10 sets, daily range): BP systolic 88–118; BP diastolic 48–80; PULSE 69–103; RESP 22; TEMP 36.2–36.8; O2SAT 97–99
[2024-07-04] MEDS: Normal Saline Flush 5 ML SYR IVP (07:25)
[2024-07-04 07:32] LABS: Abs Immature Grans 0.02 10^3/uL (0.0-0.06); Absolute Eosinophil Count 0.01 10^3/uL (0.0-0.7); Absolute Lymphocyte Count 0.61 10^3/uL (1.2-3.4); Absolute Monocyte Count 0.29 10^3/uL (0.1-0.8); Absolute Neutrophil Count 1.21 10^3/uL (1.2-6.7); Eosinophils % 0.5 %; HCT 23.2 % (40.0-50.0); Immature Grans % 0.9 %; Lymphocytes % 28.5 %; MCH 28.8 pg (27.0-33.0); MCHC 29.7 % (32.0-36.0); MCV 97 fL (80-95); MPV 10.5 fL (8.0-11.0); Monocytes % 13.6 %; Neutrophils % 56.5 %; Nucleated RBC 1.9 % (0.0-0.3); Platelet Count 110 10^3/uL (130-400); RDW 15.9 % (11.8-14.1); RDW-SD 55.7 fL; WBC 2.14 10^3/uL (4.4-10.8)
[2024-07-04 07:47] LABS: ALT 14 U/L (16-63); AST 29 U/L (15-37); Albumin 2.5 g/dL (3.4-5.0); Alkaline Phosphatase 97 U/L (46-116); Anion Gap 6.5 mmol/L (3-11); BUN 21 mg/dL (7-18); CO2 24.5 mmol/L (21.0-32.0); CREATININE 1.2 mg/dL (0.70-1.30); Calcium 8.9 mg/dL (8.5-10.1); Chloride 109 mmol/L (98-107); Estimated GFR 59.26 (mL/min/1.73m2); Glucose 119 mg/dL (74-106); Potassium 3.9 mmol/L (3.5-5.1); Sodium 140 mmol/L (136-145); Total Protein 6.5 g/dL (6.4-8.2)
[2024-07-04 08:08] LABS: HGB 6.9 g/dL (13.5-17.5)
[2024-07-07 07:28] LABS: Absolute Basophil Count 0.01 10^3/uL (0.0-0.2); Basophils % 0.1 %; RDW-SD 56.6 fL
[2024-07-07 07:40] LABS: ALT 14 U/L (16-63); AST 22 U/L (15-37); Albumin 2.6 g/dL (3.4-5.0); Alkaline Phosphatase 91 U/L (46-116); Anion Gap 8.6 mmol/L (3-11); BUN 19 mg/dL (7-18); Bilirubin, Total 1.8 mg/dL (0.2-1.0); CO2 26.4 mmol/L (21.0-32.0); CREATININE 1.3 mg/dL (0.70-1.30); Calcium 8.9 mg/dL (8.5-10.1); Chloride 107 mmol/L (98-107); Estimated GFR 53.84 (mL/min/1.73m2); Glucose 131 mg/dL (74-106); Potassium 3.7 mmol/L (3.5-5.1); Sodium 142 mmol/L (136-145); Total Protein 6.6 g/dL (6.4-8.2)
[2024-07-07 07:41] LABS: Abs Immature Grans 0.05 10^3/uL (0.0-0.06); Absolute Lymphocyte Count 0.59 10^3/uL (1.2-3.4); Absolute Monocyte Count 1.01 10^3/uL (0.1-0.8); HCT 28.3 % (40.0-50.0); HGB 8.6 g/dL (13.5-17.5); Immature Grans % 0.5 %; Lymphocytes % 6.4 %; MCH 28.6 pg (27.0-33.0); MCHC 30.4 % (32.0-36.0); MCV 94 fL (80-95); Nucleated RBC 0.7 % (0.0-0.3); Platelet Count 102 10^3/uL (130-400); RBC 3.01 10^6/uL (4.36-5.78); RDW 16.8 % (11.8-14.1); WBC 9.15 10^3/uL (4.4-10.8)
[2024-07-07] MEDS: Normal Saline Flush 5 ML SYR IVP (07:42)
[2024-07-07] MEDS: Darbepoetin 300 MCG SYR SC (07:57)
== END 2024-07-12 23:59 | disposition home or self-care (01) ==
LOC: INF 00:31
PROVIDERS: Internal Medicine Hematology & Oncology; Nurse Practitioner Adult Health; PCP Family Medicine; Visit Provider Family Medicine
DX: D46.9 Myelodysplastic syndrome, unspecified (principal); K92.2 Gastrointestinal hemorrhage, unspecified
CPT/HCPCS: 36415; 36430; 80053; 86850; 86900; 86901; 86920; 96372; 96375; 85025; 86644; J0881; P9016

== ENCOUNTER 2024-07-09 15:56 | Inpatient (IN) | payer MEDICARE, SELFPAY ==
[2024-07-09] VITALS (38 sets, daily range): BP systolic 69–124; BP diastolic 51–80; PULSE 107–126; RESP 14–35; TEMP 36.9–37.6; O2SAT 92–96
--- NOTE | 2024-07-09 16:15 | RT.EKG_ITS ---
APPROVED REPORT Exam: Resting ECG Reason for Exam: AMS Patient Location: E HR:120 bpm ECG Measurements Heart Rate 120 [place] [id number] P [id number] QRSd 81 QRS -4 QT 272 T 171 QTc 385 Conclusion Junctional tachycardia. 120 no stemi
[2024-07-09 16:28] LABS: Abs Immature Grans 0.18 10^3/uL (0.0-0.06); Absolute Basophil Count 0.02 10^3/uL (0.0-0.2); Absolute Lymphocyte Count 0.58 10^3/uL (1.2-3.4); Absolute Neutrophil Count 13.93 10^3/uL (1.2-6.7); Basophils % 0.1 %; HCT 29.2 % (40.0-50.0); HGB 8.9 g/dL (13.5-17.5); Immature Grans % 1.1 %; Lymphocytes % 3.5 %; MCH 28.3 pg (27.0-33.0); MCHC 30.5 % (32.0-36.0); MCV 93 fL (80-95); MPV 10.6 fL (8.0-11.0); Monocytes % 11.1 %; Neutrophils % 84.2 %; Nucleated RBC 1.6 % (0.0-0.3); Platelet Count 119 10^3/uL (130-400); RBC 3.14 10^6/uL (4.36-5.78); RDW 16.6 % (11.8-14.1); RDW-SD 55.1 fL; WBC 16.54 10^3/uL (4.4-10.8)
[2024-07-09 16:38] LABS: INR 1.4 (0.9-1.1); Prothrombin Time 13.6 sec (9.1-11.1)
--- NOTE | 2024-07-09 16:41 | W.ED.GENAD ---
Discharge Plan Disposition Patient Disposition: Admit to [facility] Condition: Poor Discharge Details Clinical Impression: Encephalopathy, Atrial fibrillation, Pleural effusion, Pneumonia, Dehydration, Sepsis, Abscess and cellulitis of gluteal region, Abscess Primary Care Provider: Rafiq El ED Provider: Leonarda Clifton Home Meds and New Rx's Prescriptions: No Action ferrous sulfate [iron] 325 mg (65 mg iron) tablet 325 mg PO .every other Patient Comments: patient takes every other day sucralfate 1 gram Tablet 1 g PO AC & HS Qty: 120 0RF metoprolol succinate 100 mg tablet extended release 24 hr 150 mg PO DAILY Qty: 30 0RF pantoprazole 40 mg tablet,delayed release (DR/EC) 40 mg PO BID Qty: 180 0RF HPI General Date/Time Provider Initiated Documentation: 07/09/24 16:18. Limitations to Documentation: altered mental status. Information obtained by: patient and family. HPI Narrative: 83-year-old gentleman with past medical history including A-fib, anticoagulation, myelodysplastic disorder, frequent blood transfusions presents for evaluation of altered mental status. Daughter provides most of the history. She reports that he did not get a blood transfusion on Wednesday like scheduled because his blood counts were good. He is scheduled for his next check on Wednesday. She reports that yesterday he spent most of the day sleeping. She reports that last night he seemed very restless in his sleep and was moaning quite a bit. Slept most of the day today. When he woke up he was trying to go to the doctors appointments and looking for people that were not there. Daughter states that he is very confused. She has noticed slight cough and that his chest sounds wet. No known fever but he has been getting Tylenol for discomfort pretty regularly. She states for the last 2 days he has not had much to eat or drink. Related Data Home Medications ?Medication ?Instructions ?Recorded ?Confirmed ferrous sulfate 325 mg (65 mg 325 mg PO .every other 11/22/23 07/09/24 iron) tablet (iron) metoprolol succinate 100 mg 150 mg (1.5 x 100 mg) PO DAILY #30 12/01/23 07/09/24 tablet,extended release 24 hr tabs pantoprazole 40 mg tablet,delayed 40 mg PO BID #180 tabs 12/01/23 07/09/24 release sucralfate 1 gram tablet 1 g PO AC & HS #120 tabs 12/01/23 07/09/24 Previous Rx's ?Medication ?Instructions ?Recorded metoprolol succinate 100 mg 150 mg (1.5 x 100 mg) PO DAILY #30 12/01/23 tablet,extended release 24 hr tabs pantoprazole 40 mg tablet,delayed 40 mg PO BID #180 tabs 12/01/23 release sucralfate 1 gram tablet 1 g PO AC & HS #120 tabs 12/01/23 Allergies Allergy/AdvReac Type Severity Reaction Status Date / Time PEACH SKINS AdvReac Other (See Uncoded 07/09/24 16:10 Comment) General Stated Complaint: AMS/LOC WILBERT: 2 Exam Narrative Exam Narrative: Review of Systems: All systems reviewed & are unremarkable except as noted in HPI and below Well-developed, no acute distress Afebrile NCAT Tachycardic Mild tachypnea, no hypoxia, coarse breath sounds diffusely Nondistended abdomen , soft nontender Bilateral lower extremity edema is symmetric Stage I skin breakdown over bilateral buttock, right buttock with 6 x 6 area of induration and tenderness, consistent with abscess Patient is alert follows commands, unable to really carry on a conversation and follow the conversation. Course Vital Signs Vital signs: Vital Signs Temperature 36.9 C 07/09/24 15:59 Pulse 125 H 07/09/24 15:59 Respiratory Rate 31 H 07/09/24 15:59 Blood Pressure 123/65 07/09/24 15:59 Pulse Oximetry 96 07/09/24 15:59 Temperature 36.9 C 07/09/24 15:59 Temperature Source Oral 07/09/24 15:59 Pulse 125 H 07/09/24 15:59 Respiratory Rate 31 H 07/09/24 15:59 Blood Pressure 123/65 07/09/24 15:59 Blood Pressure Position Supine 07/09/24 15:59 Pulse Oximetry 96 07/09/24 15:59 Oxygen Delivery Method Room Air 07/09/24 15:59 Oxygen Flow Rate 0 07/09/24 15:59 Pain Level 6 07/09/24 15:59 Lab/Test Results Lab/Test Results: Laboratory Tests Range/Units 07/09/24 16:15 PT (9.1-11.1) sec 13.6 H INR (0.9-1.1) 1.4 H Procedure Abscess Drainage Location of Exam: Buttocks/right side Indication: Abscess. Local anesthetic: Lidocaine 1% and with epi, Amount of Local Anesthetic Used (mL): 10. Sterility: Non Sterile. Technique used, incised with blade. Irrigation: no irrigation Packing: Iodoform. Outcome: Sucessful Procedure Description/Note: Purulent, bloody drainage, minimal amount. wound packed. culture sent. Medical Decision Making Emergent evaluation of altered mental status. Patient has had increased sleeping and confusion at home. He is noted to be tachycardic here. Initial differential includes infectious etiology, anemia, no signs or symptoms consistent with trauma. Daughter does report that he seems to get like this when his blood counts are low which is particularly concerning since he did not receive a blood transfusion on Wednesday. Plan for labs imaging EKG and close monitoring. Patient's tachycardia treated with diltiazem and his home oral metoprolol. Blood pressure noted to be slightly low. Abscess noted on CT scan, and drained at bedside without complication. Only minimal output noted. Patient has been resuscitated with a small amount of IV fluids given that he has had such poor oral intake for the last couple of days. He has also been cultured and given IV antibiotics. His blood counts do not appear to be significantly low and a blood transfusion is not indicated at this time. His urinalysis does not reveal infection. His chest x-ray is grossly abnormal with what appears to be a pleural effusions and possible infiltrate consistent with pneumonia. He likely needs a chest CT tomorrow when he can receive IV contrast again to further evaluate his chest x-ray. From a respiratory standpoint he does not appear to be in any distress, he is not requiring oxygen. Given his vital sign abnormalities, acute encephalopathy and sign of infection, patient will be admitted to the hospital for further management. Quality:SDOH Health Related Social Needs: Health related social needs details denied problems PFSH All Active Problems (Updated 07/09/24 @ 20:17 by Leonarda Clifton MD) Abscess (Acute) Pleural effusion (Acute) Encephalopathy (Acute) Hypomagnesemia (Acute) Abscess and cellulitis of gluteal region (Acute) Sepsis (Acute) Dehydration (Acute) Pleural effusion (Acute) Pneumonia (Acute) Palliative care patient (Acute) Recurrent gastrointestinal hemorrhage (Acute) Pneumothorax, iatrogenic (Acute) Pleural effusion (Chronic) Atrial fibrillation (Chronic) Chronic anticoagulation (Chronic) Myelodysplastic syndrome (Chronic) Anemia (Chronic) Encounter for blood transfusion (Acute) Anemia (Chronic) H/O mechanical aortic valve replacement (Chronic) Diverticulosis of colon without diverticulitis (Chronic) Upper GI bleed (Acute) 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 ear (Acute) Sensorineural hearing loss (SNHL) of right ear with restricted hearing of left ear (Acute) Sensorineural hearing loss of combined sites, bilateral (Acute 08/03/16) Medical History Elevated troponin level not due to acute coronary syndrome CKD (chronic kidney disease) stage 3, GFR 30-59 ml/min DNR (do not resuscitate) Not sure about intubation, +treat, +transfer, +abx, +IV fluids Advanced care planning/counseling discussion Palliative care encounter Atrial flutter Prosthetic cardiac valve vegetation Intracranial hemorrhage Discharge planning issues diverticulosis adenoma colon polyp Prosthetic Aortic Valve Overweight Hearing loss bilat Surgical History History of thoracentesis (~02/2024) H/O prosthetic aortic valve replacement redo of aortic valve hernia/hydrocele repair Appendectomy Aortic valve replaced Social History Smoking/Tobacco Use Status: Current-Occasional Smoking risk assessment performed?: Yes Alcohol Intake: current Alcohol Intake frequency: holidays/special occasions only Alcohol type: wine Drug use: Never Substance use type: does not use Housing: house Do you feel safe at home: Yes Do you feel safe in your relationship?: Yes
[2024-07-09 16:44] LABS: Absolute Monocyte Count 1.84 10^3/uL (0.1-0.8); Diff Comment Diff Reviewed
[2024-07-09 16:45] LABS: RBC Morphology Normal
--- NOTE | 2024-07-09 16:45 | DI.RAD_ITS ---
Exam(s) XR PORTABLE CHEST AP EXAM: XR PORTABLE CHEST AP CLINICAL HISTORY: ams TECHNIQUE: 2D digital imaging was performed. COMPARISON: CR XR CHEST 2V PA LATERAL from 06/13/2024 FINDINGS: Exam is limited by under penetration and patient positioning. The left costophrenic angle is not fu lly included on the exam. LUNGS: Moderate size left pleural effusion. Tiny right pleural effusion is stable. Increased inters titial markings and vascular prominence bilaterally could indicate CHF. Increased densities greatest in the left lower lung, atelectasis versus infiltrate. Pleural calcification again noted. HEART: Normal aortic valve prosthesis. AORTA: Normal diameter. BONES: Sternal wires. Soft tissues: Unremarkable. IMPRESSION: Moderate-sized left pleural effusion, increasing from prior. Increased left basilar densities indica ting atelectasis versus infiltrate. Increased densities also noted on the right. An element of pulm onary edema is suspected. DATA REPOSITORY: RADIATION DOSE DELIVERED:
[2024-07-09 16:48] LABS: Ammonia 20 umol/L (11-32)
[2024-07-09 16:52] LABS: ALT 12 U/L (16-63); AST 23 U/L (15-37); Albumin 2.6 g/dL (3.4-5.0); Alkaline Phosphatase 93 U/L (46-116); Anion Gap 10.5 mmol/L (3-11); BUN 14 mg/dL (7-18); CO2 24.5 mmol/L (21.0-32.0); CREATININE 1.3 mg/dL (0.70-1.30); Calcium 9.2 mg/dL (8.5-10.1); Chloride 106 mmol/L (98-107); Estimated GFR 53.84 (mL/min/1.73m2); Glucose 129 mg/dL (74-106); Magnesium 1.7 mg/dL (1.8-2.4); Potassium 3.5 mmol/L (3.5-5.1); Sodium 141 mmol/L (136-145); TSH (W/Ref FT4) 4.45 uIU/mL (0.36-3.74); Total Protein 6.9 g/dL (6.4-8.2); Troponin I 22 ng/L (<or=76)
[2024-07-09] MEDS: Normal Saline 500 ML IV ×2 (17:04→21:20)
[2024-07-09 17:07] LABS: ETHANOL BLOOD < 3.0 mg/dL (<10)
[2024-07-09 17:12] LABS: FREE T4 1.16 ng/dL (0.76-1.46)
--- NOTE | 2024-07-09 17:30 | DI.CT_ITS ---
Exam(s) CT PELVIC W EXAM: CT PELVIC W CLINICAL HISTORY: buttock abscess?. TECHNIQUE: Imaging Protocol: Axial computed tomography images with coronal and sagittal reformatted images were created and reviewed. CONTRAST MATERIAL: Intravenous: Omnipaque 350 Contrast volume:100 ml Contrast route:IV - Oral: no COMPARISON: No exams were available for comparison FINDINGS: Bladder: Nearly empty. Marked wall thickening. Diverticula. Wall thickening. No stones.No evidence of mass. Bowel: No obstruction or bowel wall thickening. Increased stool in the rectum. No wall thickening. Peritoneal cavity: No focal collection or mesenteric inflammatory response. Trace amount of fluid. Reproductive: Prostate is enlarged. Vasculature: No evidence of aortic or iliac artery aneurysm. Bones: No acute findings. Soft tissues: Roughly 2 centimeter abscess noted in the medial left gluteal fold. Small fat containi ng left inguinal hernia. Mild body wall edema. Scrotal edema. IMPRESSION: 2 centimeter abscess in the left medial gluteal fold. No acute intra-abdominal abnormality. RADIATION DOSE DELIVERED: 179.44mGy.cm Total DLP DATA REPOSITORY: All CT scans at this facility are submitted to the National Radiology Data Registry (NRDR) Dose Index Registry (DIR) with the [employer] (A[employer]). RADIATION OPTIMIZATION: All CT scans at this facility use at least one of these dose optimization te chniques: automated exposure control; mA and/or kV adjustment per patient size (includes targeted exa ms where dose is matched to clinical indication); or iterative reconstruction.
[2024-07-09 17:41] LABS: Lactate 1.7 mmol/L (<or=2.0)
[2024-07-09 17:55] LABS: BE (Venous) 0 mmol/L (-2-3); HCO3 (Venous) 24 mmol/L (23-28); O2 Sat (Venous) 50 %; TCO2 (Venous) 24 mmol/L (24-29); pCO2 (Venous) 40 mmHg (41-51); pH (Venous) 7.39 (7.31-7.41); pO2 (Venous) 28 mmHg
[2024-07-09 18:01] LABS: Troponin I 22 ng/L (<or=76)
[2024-07-09 18:13] LABS: NT-proBNP 4015 pg/mL (<300)
[2024-07-09] MEDS: dilTIAZem 25 MG/5 ML VIAL 10 MG IVP ×2 (18:19→20:44)
[2024-07-09] MEDS: Metoprolol 50 MG TAB PO (18:19)
[2024-07-09 18:57] LABS: Bilirubin Small (Negative); Blood Trace-intact (Negative); Clarity Clear (Clear); Glucose Negative (Negative); Ketones Negative (Negative); Leukocyte Esterase Negative (Negative); Nitrite Negative (Negative); Specific Gravity 1.025 (1.005-1.025); pH 5.5 (5-8)
[2024-07-09] MEDS: Normal Saline - Diluent 50 ML VIAL IV (19:07)
[2024-07-09 19:08] LABS: Bacteria Negative HPF (Negative); Crystals Negative HPF (Negative); Epithelial Cells Rare HPF (Negative); Mucus Moderate (Negative); Other Cells Negative (Negative); RBC 0-2 HPF (0-2); WBC Negative HPF (0-5)
[2024-07-09] MEDS: Omnipaque 350 MG/ML 100 ML BTL IJ (19:08)
[2024-07-09 19:09] LABS: C & S Indicated? No
[2024-07-09 19:12] LABS: *AMPHETAMINES SCREEN URINE Negative (Negative); *BARBITURATES SCREEN URINE Negative (Negative); *BENZODIAZEPINES SCREEN URINE Negative (Negative); Cannabinoids THC Negative (Negative); Cocaine Screen,Urine Negative (Negative); METHADONE URINE SCREEN Negative (Negative); OPIATES URINE SCREEN Negative (Negative); Tricyclic Antidepressants Negative (Negative)
--- NOTE | 2024-07-09 19:18 | DI.VRAD_ITS ---
PROCEDURE INFORMATION: Exam: XR Chest Exam date and time: 07/09/2024 5:51 PM Age: 83 years old Clinical indication: Other: AMS; Prior surgery; Surgery date: 6+ months; Surgery type: Aortic valve TECHNIQUE: Imaging protocol: Radiologic exam of the chest. Views: 1 view. COMPARISON: 1. CR XR CHEST 2V PA LATERAL 06/13/2024 1:[address] CHEST WO 03/10/2024 12:27 AM FINDINGS: Limitations: There is lordotic patient positioning. Lungs: The lung heath are somewhat obscured by calcified pleural plaques. There is increased opacity in the left lower lung zone, probably resulting from the left-sided pleural effusion or atelectasis associated with the pleural effusion; however, aspiration or pneumonia would be difficult to exclude on such a background. Otherwise, no gross focal pulmonary consolidation is seen. Pleural spaces: There appears to be a large left-sided pleural effusion. There is probably a small right-sided pleural effusion. There are multiple calcified pleural plaques, most obvious obscuring the left upper lung zone. Within the limits of the exam, no definite pneumothorax is seen. Heart/Mediastinum: The heart is partially obscured but appears mildly enlarged. There has been a prior median sternotomy. There is a prosthetic aortic valve. Bones/joints: There is prominent degenerative change at the acromioclavicular joints bilaterally. IMPRESSION: 1. Numerous scattered calcified bilateral pleural plaques, partially obscuring the lungs, most obvious projecting over the left upper lung zone. 2. Large left-sided pleural effusion. Small right-sided pleural effusion. 3. Increased opacity over the left lower lung zone, probably resulting from the left-sided pleural effusion or from atelectasis associated with the pleural effusion; however, aspiration or pneumonia would be difficult to exclude on such a background. Dictated and Authenticated by: Temo Gonzalez MD. Orderin Elodia Da Silva MD
--- NOTE | 2024-07-09 19:26 | DI.VRAD_ITS ---
PROCEDURE INFORMATION: Exam: CT Pelvis With Contrast Exam date and time: 07/09/2024 6:51 PM Age: 83 years old Clinical indication: Other: Buttock abscess? TECHNIQUE: Imaging protocol: Computed tomography of the pelvis with contrast. Contrast material: 350; Contrast route: INTRAVENOUS (IV); COMPARISON: CT ABDOMEN PELVIS CTA 03/10/2024 12:27 AM FINDINGS: Intestine: No dilated small bowel loops in the pelvis. No evidence of diverticulitis or colitis through the visualized portion of the colon. Normal-appearing fecal material throughout the sigmoid colon and rectum. Appendix: Normal appendix. Intraperitoneal space: No gross ascites or free air seen in the pelvis. Vasculature: Normal caliber distal abdominal aorta just above the bifurcation. Moderately extensive atherosclerotic calcification. Lymph nodes: No pathologically enlarged pelvic sidewall lymph nodes. Reproductive: Mildly enlarged prostate gland measuring 4.0 cm x 4.7 cm. Normal-appearing seminal vesicles. Mild diffuse subcutaneous edema. Prominent scrotal skin edema. Testicles almost completely obscured and poorly evaluated. Urinary bladder: Urinary bladder partially decompressed but with circumferential mural thickening, hazy perivesical fat stranding and bladder wall diverticula measuring 2.6 cm on the right and 1.7 cm on the left on image 147 of series 2. No distal ureteral calculi. Bones/joints: No acute fracture or dislocation seen in the pelvis or at the hip joints. Anterior osteophytes and facet arthrosis throughout the lower lumbar spine. Moderate discogenic degeneration at L5-S1. Soft tissues: Tiny fat-containing ventral hernia at the umbilicus, doubtful clinical significance. Small fat containing left inguinal region hernia. 1.7 cm x 1.6 cm x 2.0 cm subcutaneous abscess in the medial aspect of the left buttock adjacent to the cleft between the buttocks, best demonstrated by images 79 of series 3 and 76 of series 5. Surrounding hazy inflammatory change but no overlying skin thickening. IMPRESSION: 1. 1.7 cm x 1.6 cm x 2.0 cm subcutaneous abscess in the medial aspect of the left buttock adjacent to the cleft between the buttocks, best demonstrated by images 79 of series 3 and 76 of series 5. Surrounding hazy inflammatory change but no overlying skin thickening. 2. Prominent scrotal skin edema, largely obscuring the testicles. Correlation with physical exam recommended. 3. Urinary bladder partially collapsed but circumferentially thick-walled with hazy indistinctness of the bladder margins and bladder wall diverticula. Although a component of mural trabeculation resulting from chronic outflow obstruction is almost certainly present, clinical correlation is recommended to exclude superimposed acute cystitis. Additional findings, as detailed above. Dictated and Authenticated by: Temo Gonzalez MD. Orderin Elodia Da Silva MD
[2024-07-09] MEDS: CEFEPIME 1 GM in Normal Saline 50 ML IVPB (19:34)
--- NOTE | 2024-07-09 19:50 | W.PM.HP.N ---
Date of service: 07/09/24 Time of Service: 19:50 Assessment and Plan Assessment and plan (1) Sepsis: Start date: 07/09/24 Status: Acute Assessment and plan: This is an 83-year-old gentleman who meets sepsis criteria but has a normal procalcitonin and lactic acid though his mentation is worsening probably an exacerbation of dementia, elevated WBC and elevated respiratory rate with tachycardia and a history of PAF now. Junctional tachycardia. The source of infection including the abscess of his buttock persistent left lower lobe pneumonia with pleural effusions and no hypoxemia. He does have a cough but no fever reported from home with fever presently. He will continue on IV cefepime and vancomycin with gentle IV hydration appearing clinically dry, watching for fluid overload though he did have a normal left ventricular ejection fraction by echocardiogram in November 2023. His daughter will be sitting at his bedside and is helping redirect him with his confusion. This may be a mild encephalopathy with his infection and decompensation but as stated, most likely is progression of his dementia. Long-term he may need daily scheduled medication for his behavioral abnormalities with memory impairment. For now he will receive Benadryl nightly for aid in sleeping as he does at home. He is a DNR/DNI. (2) Encephalopathy: Start date: 07/09/24 Status: Acute Assessment and plan: Patient has had signs of progressive dementia with sundowning according to the daughter, but is acutely confused with his sepsis. Symptomatic treatment with Benadryl at night as given at home but need to consider daily scheduled medical therapy for his progressive behavioral abnormalities with probable underlying dementia. I did discuss this with the daughter. (3) Abscess and cellulitis of gluteal region: Start date: 07/09/24 Status: Acute Assessment and plan: Status post drainage with continued IV vancomycin and cefepime. Wound and bandage care by the nurses. (4) Dehydration: Start date: 07/09/24 Status: Acute Assessment and plan: Mild dehydration clinically though his creatinine is at baseline does have concentrated urine. He also has had decreased intake recently. He is tachycardic but does have a history of PAF and is a junctional tachycardia rather than sinus tachycardia. He does have pleural effusions which appear chronic. He did have a left ventricular ejection fraction by echocardiogram November 2023 and is not chronically on diuretics. (5) Pneumonia: Start date: 07/09/24 Status: Acute Assessment and plan: Left lower lobe with some chronic changes on chest x-ray. This is persistent from findings 06/13/2024. Patient does have frequent hospital visits and he will be covered for hospital-acquired pneumonia. (6) Pleural effusion: Status: Chronic Assessment and plan: Normal echocardiogram and this could be secondary to inflammation. If worsening consider diagnostic thoracentesis. Consider follow-up CT scan of the chest for further delineation of his chronic changes and acute progressive changes. (7) Hypomagnesemia: Start date: 07/09/24 Status: Acute Assessment and plan: Patient will be repleted IV and follow-up lab daily. (8) Myelodysplastic syndrome: Status: Chronic Assessment and plan: On treatment with Aranesp and twice a week evaluation the transfusion center with blood transfusions as needed. Patient wishes to continue this treatment. As long as he is wanting treatment he may be a candidate for hospice but this will be discussed by palliative care. Patient should have increased services at home but he and his do not want any strangers in their home but is excepting the daughter's care weekly and his son's care as needed. (9) Anemia: Status: Chronic Assessment and plan: Associated with MDS but has had blood loss anemia when on Coumadin for his prosthetic aortic valve. Patient has weight risk and benefits and now is not on anticoagulation for his valve. His PT/INR is slightly elevated without Coumadin. (10) Atrial fibrillation: Status: Chronic Assessment and plan: Patient is having junctional tachycardia on presentation and will continue metoprolol split dosing because of low blood pressure. He is not on anticoagulation because of increased risk of bleeding and his anemia. (11) CKD (chronic kidney disease) stage 3, GFR 30-59 ml/min: Assessment and plan: Stable with monitoring while hospitalized. Gentle IV hydration with recent decreased intake and clinically appearing dry. History of Present Illness History of Present Illness Chief Complaint: Confusion with skin breakdown over sacrum Narrative: This is an 83-year-old male patient with myelodysplastic syndrome on Aranesp injections and transfusions on Wednesday and Wednesday each week and needed. Patient will occasionally not require transfusion and missed his last transfusion Wednesday of last week. His daughter from [place] lives with the patient and his from Wednesday through Wednesday each week since he has been having increasing home care needs. The patient's son lives close by and takes care of of the patient's needs the rest of the week but he does not stay at the home. Often when patient misses a transfusion, he becomes even more confused and more severely anemic before his next outpatient transfusion visit. The day of this visit in the ED, the patient presented with increasing confusion at home and decreased intake for the last several days which has been progressive over the last weeks since outpatient treatment for pneumonia with oral antibiotics on 06/13/2024 presenting with cough and positive x-ray findings. He continues with cough but no fever reported. Patient was also having increased body aches between his transfusions and taking Tylenol frequently for this pain. He also states Tylenol PM at night for increased confusion and agitation which has recently progressed, but not nearly as severe as now. Patient also has recently had slight skin breakdown of his buttocks with recent increased pain over his medial left buttock. With the ED evaluation patient had positive CT scan of the abdomen pelvis which revealed an abscess in that area. This was I&D'ed by the ED provider with local anesthetic before admission to the floor. Patient did have an elevated WBC, tachypnea and tachycardia with source of infection being an abscess in his left buttock with x-ray findings for persistent pneumonia in the left lower lobe. He was still not anemic which surprised the daughter who suspected his presentation was from worsening anemia which had been the case in the past when he was not transfused at previous transfusion clinic visits. Patient had decreased intake and appeared clinically slightly dry. He was given IV fluid bolus and will continue with gentle IV hydration overnight. His last echocardiogram revealed a preserved left ventricular ejection fraction in November 2023. Patient was initiated on IV cefepime and vancomycin which will be continued with hospitalization and close observation as allowed with his confusion. Patient's history is mostly given by his daughter with the patient confused. He is a DNR/DNI. Review of Systems Narrative: 13 point review of systems otherwise unrevealing. This was done with the daughter at bedside with patient confused and very well-appearing. [facility] All Active Problems (Updated 07/10/24 @ 04:13 by Kian Stacy) Abscess (Acute) Pleural effusion (Acute) Encephalopathy (Acute) Hypomagnesemia (Acute) Abscess and cellulitis of gluteal region (Acute) Sepsis (Acute) Dehydration (Acute) Pleural effusion (Acute) Pneumonia (Acute) Palliative care patient (Acute) Recurrent gastrointestinal hemorrhage (Acute) Pneumothorax, iatrogenic (Acute) Pleural effusion (Chronic) Atrial fibrillation (Chronic) Chronic anticoagulation (Chronic) Myelodysplastic syndrome (Chronic) Anemia (Chronic) Encounter for blood transfusion (Acute) Anemia (Chronic) H/O mechanical aortic valve replacement (Chronic) Diverticulosis of colon without diverticulitis (Chronic) Upper GI bleed (Acute) 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 ear (Acute) Sensorineural hearing loss (SNHL) of right ear with restricted hearing of left ear (Acute) Sensorineural hearing loss of combined sites, bilateral (Acute 08/03/16) Medical History Elevated troponin level not due to acute coronary syndrome CKD (chronic kidney disease) stage 3, GFR 30-59 ml/min DNR (do not resuscitate) Not sure about intubation, +treat, +transfer, +abx, +IV fluids Advanced care planning/counseling discussion Palliative care encounter Atrial flutter Prosthetic cardiac valve vegetation Intracranial hemorrhage Discharge planning issues diverticulosis adenoma colon polyp Prosthetic Aortic Valve Overweight Hearing loss bilat Surgical History History of thoracentesis (~02/2024) H/O prosthetic aortic valve replacement redo of aortic valve hernia/hydrocele repair Appendectomy Aortic valve replaced Social History Smoking/Tobacco Use Status: Current-Occasional Smoking risk assessment performed?: Yes Alcohol Intake: current Alcohol Intake frequency: holidays/special occasions only Alcohol type: wine Drug use: Never Substance use type: does not use Housing: house Do you feel safe at home: Yes Do you feel safe in your relationship?: Yes Meds Allergies and Home Medications Allergies Allergy/AdvReac Type Severity Reaction Status Date / Time PEACH SKINS AdvReac Other (See Uncoded 07/09/24 16:10 Comment) Home Medications ?Medication ?Instructions ?Recorded ?Confirmed ?Type ferrous sulfate 325 mg (65 mg 325 mg PO .every other 11/22/23 07/09/24 History iron) tablet (iron) metoprolol succinate 100 mg 150 mg (1.5 x 100 mg) PO DAILY #30 12/01/23 07/09/24 Rx tablet,extended release 24 hr tabs pantoprazole 40 mg tablet,delayed 40 mg PO BID #180 tabs 12/01/23 07/09/24 Rx release sucralfate 1 gram tablet 1 g PO AC & HS #120 tabs 12/01/23 07/09/24 Rx Exam Narrative Exam Narrative: General: Patient appears appropriate for age, he is very hard of hearing and does not answer appropriately being oriented at least to person and in no acute distress lying in bed but fidgety pulling at his IV and telemetry. HEENT: Normocephalic, eyes with pupils equal and reactive to light symmetrically, extraocular movement tachycardia sclera anicteric. Oropharynx with slightly dry mucosa. Patient is wearing hearing aids. Neck: Supple without JVD. Back: Stooped posture without CVA tenderness. Lungs: Fair aeration and with inspiratory coarse crackles over left lung field and decreased aeration of the left base. Clear, vesicular breath sounds on the right. No increased expiratory phase or expiratory wheeze. Heart: Tachycardic rate and regular rhythm with 4/6 systolic murmur left sternal border with sternal scar. No gallops or rubs. Abdomen: Obese contour, soft and nontender to palpation, no palpable hepatosplenomegaly. No guarding and no rebound. Bowel sounds positive in all quadrants. Genitalia/rectal: Exam deferred. Patient did have exam in ED revealing stage I pressure sores and fluctuant abscess which was I&D'ed after imaging confirmed. Dry bandage presently. Extremities: Without clubbing, cyanosis or pitting edema. Slight nonpitting edema over ankles. Good capillary refill. Skin: Pale, warm and dry. No bruising. Hyperpigmented rash over anterior left leg. Skin breakdown and abscess as described by ED provider. Neuro: Cranial nerves II through XII gross intact with patient hard of hearing, no focalizing motor deficits. No tremor. Psych: Patient very hard of hearing and not responding appropriately being fidgety and pulling at his lines. Unable to assess remote and recent memory. Patient is not manifesting any abnormal thought processes. Mood appears normal but affect labile and easily agitated. (Daughter states patient has been sundowning at home over recent months and requiring Tylenol PM at night because of similar agitation but not as severe as presently). Results Imaging Imaging Studies: Exam: XR Chest Exam date and time: 07/09/2024 5:51 PM Age: 83 years old Clinical indication: Other: AMS; Prior surgery; Surgery date: 6+ months; Surgery type: Aortic valve TECHNIQUE: Imaging protocol: Radiologic exam of the chest. Views: 1 view. COMPARISON: 1. CR XR CHEST 2V PA LATERAL 06/13/2024 1:[address] CHEST WO 03/10/2024 12:27 AM FINDINGS: Limitations: There is lordotic patient positioning. Lungs: The lung heath are somewhat obscured by calcified pleural plaques. There is increased opacity in the left lower lung zone, probably resulting from the left-sided pleural effusion or atelectasis associated with the pleural effusion; however, aspiration or pneumonia would be difficult to exclude on such a background. Otherwise, no gross focal pulmonary consolidation is seen. Pleural spaces: There appears to be a large left-sided pleural effusion. There is probably a small right-sided pleural effusion. There are multiple calcified pleural plaques, most obvious obscuring the left upper lung zone. Within the limits of the exam, no definite pneumothorax is seen. Heart/Mediastinum: The heart is partially obscured but appears mildly enlarged. There has been a prior median sternotomy. There is a prosthetic aortic valve. Bones/joints: There is prominent degenerative change at the acromioclavicular joints bilaterally. IMPRESSION: 1. Numerous scattered calcified bilateral pleural plaques, partially obscuring the lungs, most obvious projecting over the left upper lung zone. 2. Large left-sided pleural effusion. Small right-sided pleural effusion. 3. Increased opacity over the left lower lung zone, probably resulting from the left-sided pleural effusion or from atelectasis associated with the pleural effusion; however, aspiration or pneumonia would be difficult to exclude on such a background. Exam: CT Pelvis With Contrast Exam date and time: 07/09/2024 6:51 PM Age: 83 years old Clinical indication: Other: Buttock abscess? TECHNIQUE: Imaging protocol: Computed tomography of the pelvis with contrast. Contrast material: 350; Contrast route: INTRAVENOUS (IV); COMPARISON: CT ABDOMEN PELVIS CTA 03/10/2024 12:27 AM FINDINGS: Intestine: No dilated small bowel loops in the pelvis. No evidence of diverticulitis or colitis through the visualized portion of the colon. Normal-appearing fecal material throughout the sigmoid colon and rectum. Appendix: Normal appendix. Intraperitoneal space: No gross ascites or free air seen in the pelvis. Vasculature: Normal caliber distal abdominal aorta just above the bifurcation. Moderately extensive atherosclerotic calcification. Lymph nodes: No pathologically enlarged pelvic sidewall lymph nodes. Reproductive: Mildly enlarged prostate gland measuring 4.0 cm x 4.7 cm. Normal-appearing seminal vesicles. Mild diffuse subcutaneous edema. Prominent scrotal skin edema. Testicles almost completely obscured and poorly evaluated. Urinary bladder: Urinary bladder partially decompressed but with circumferential mural thickening, hazy perivesical fat stranding and bladder wall diverticula measuring 2.6 cm on the right and 1.7 cm on the left on image 147 of series 2. No distal ureteral calculi. Bones/joints: No acute fracture or dislocation seen in the pelvis or at the hip joints. Anterior osteophytes and facet arthrosis throughout the lower lumbar spine. Moderate discogenic degeneration at L5-S1. Soft tissues: Tiny fat-containing ventral hernia at the umbilicus, doubtful clinical significance. Small fat containing left inguinal region hernia. 1.7 cm x 1.6 cm x 2.0 cm subcutaneous abscess in the medial aspect of the left buttock adjacent to the cleft between the buttocks, best demonstrated by images 79 of series 3 and 76 of series 5. Surrounding hazy inflammatory change but no overlying skin thickening. IMPRESSION: 1. 1.7 cm x 1.6 cm x 2.0 cm subcutaneous abscess in the medial aspect of the left buttock adjacent to the cleft between the buttocks, best demonstrated by images 79 of series 3 and 76 of series 5. Surrounding hazy inflammatory change but no overlying skin thickening. 2. Prominent scrotal skin edema, largely obscuring the testicles. Correlation with physical exam recommended. 3. Urinary bladder partially collapsed but circumferentially thick-walled with hazy indistinctness of the bladder margins and bladder wall diverticula. Although a component of mural trabeculation resulting from chronic outflow obstruction is almost certainly present, clinical correlation is recommended to exclude superimposed acute cystitis. Additional findings, as detailed above Labs 07/09/24 16:15 07/09/24 16:15 Labs: Laboratory Results - last 24 hr 04/27/25 04/27/25 04/27/25 16:15 16:31 17:37 WBC 16.54 H RBC 3.14 L Hgb 8.9 L Hct 29.2 L MCV 93 MCH 28.3 MCHC 30.5 L RDW 16.6 H Plt Count 119 L MPV 10.6 Immature Gran % 1.1 Neutrophils % 84.2 Lymphocytes % 3.5 Monocytes % 11.1 Eosinophils % 0.0 Basophils % 0.1 Nucleated RBC % 1.6 H Absolute Neutrophils 13.93 H Absolute Lymphocytes 0.58 L Absolute Monocytes 1.84 H Absolute Eosinophils 0.00 Absolute Basophils 0.02 RBC Morphology Normal PT 13.6 H INR 1.4 H VBG pH 7.39 VBG pCO2 40 L VBG pO2 28 VBG HCO3 24 VBG Total CO2 24 VBG O2 Saturation 50 VBG Base Excess 0 VBG Lactate 1.7 Sodium 141 Potassium 3.5 Chloride 106 Carbon Dioxide 24.5 Anion Gap 10.5 BUN 14 Creatinine 1.3 Est GFR (CKD-EPI 2020) 53.84 Glucose 129 H Calcium 9.2 Magnesium 1.7 L Total Bilirubin 2.0 H AST 23 ALT 12 L Alkaline Phosphatase 93 Ammonia 20 Troponin I 22 22 NT-Pro-B Natriuret Pep 4015 H Total Protein 6.9 Albumin 2.6 L TSH 4.45 H Free T4 1.16 Urine Color Urine Clarity Urine pH Ur Specific [place] Urine Protein Urine Ketones Urine Blood Urine Nitrite Urine Bilirubin Urine Urobilinogen Ur Leukocyte Esterase Urine RBC Urine WBC Ur Epithelial Cells Urine Crystals Urine Bacteria Urine Mucus Urine Other Ur Culture Indicated? Urine Glucose Urine Opiates Screen Urine Methadone Screen Ur Barbiturates Screen Ur Tricyclics Screen Ur Amphetamines Screen U Benzodiazepines Scrn Urine Cocaine Screen Ur THC Screen Ethyl Alcohol < 3.0 ABO/Rh B Positive Antibody Screen NEGATIVE 07/09/24 07/09/24 18:35 19:18 WBC RBC Hgb Hct MCV MCH MCHC RDW Plt Count MPV Immature Gran % Neutrophils % Lymphocytes % Monocytes % Eosinophils % Basophils % Nucleated RBC % Absolute Neutrophils Absolute Lymphocytes Absolute Monocytes Absolute Eosinophils Absolute Basophils RBC Morphology PT INR VBG pH VBG pCO2 VBG pO2 VBG HCO3 VBG Total CO2 VBG O2 Saturation VBG Base Excess VBG Lactate Sodium Potassium Chloride Carbon Dioxide Anion Gap BUN Creatinine Est GFR (CKD-EPI 2020) Glucose Calcium Magnesium Total Bilirubin AST ALT Alkaline Phosphatase Ammonia Troponin I Cancelled NT-Pro-B Natriuret Pep Total Protein Albumin TSH Free T4 Urine Color Dark Yellow Urine Clarity Clear Urine pH 5.5 Ur Specific [place] 1.025 Urine Protein 100 H Urine Ketones Negative Urine Blood Trace-intact H Urine Nitrite Negative Urine Bilirubin Small H Urine Urobilinogen 1.0 H Ur Leukocyte Esterase Negative Urine RBC 0-2 Urine WBC Negative Ur Epithelial Cells Rare Urine Crystals Negative Urine Bacteria Negative Urine Mucus Moderate Urine Other Negative Ur Culture Indicated? No Urine Glucose Negative Urine Opiates Screen Negative Urine Methadone Screen Negative Ur Barbiturates Screen Negative Ur Tricyclics Screen Negative Ur Amphetamines Screen Negative U Benzodiazepines Scrn Negative Urine Cocaine Screen Negative Ur THC Screen Negative Ethyl Alcohol ABO/Rh Antibody Screen Last Vital Signs Temp 36.9 C 07/09/24 16:03 Pulse 107 H 07/09/24 19:01 Resp 20 07/09/24 19:01 BP 107/71 07/09/24 19:01 Pulse Ox 92 07/09/24 19:00 Time Spent Time spent with Patient: >75 minutes Time was spent: preparing to see the patient(eg.review tests), obtaining and/or reviewing separately otained hiistory, ordering medications,tests, procedures, indepentently interpreting results, counseling the patient, care coordination and other (Discussed care plan with daughter and need for increased care at home with palliative care. Not a candidate for Hospice presently but considering.)
[2024-07-09] MEDS: VANCOMYCIN 1,500 MG in Normal Saline 250 ML 166.6666 MG IVPB (20:25)
[2024-07-09 20:53] LABS: Procalcitonin < 0.10 ng/mL
[2024-07-09] MEDS: Lidocaine 1% Multi-Dose W/EPI 1/100,000 50 ML VIAL (21:21)
--- NOTE | 2024-07-09 22:06 | W.PC.ACHO ---
Registration Status: Primary Language: Preferred Language: ED Information & Data Chief Complaint AMS/LOC 07/09/24 16:46 Triage Note Brought in by daughter, caryn 07/09/24 15:59 MDS goes to infusion twice a week. often gets blood transfusions. pt is more confused than at baseline, has poor PO intake, concerned for infection versus low hemoglobin, has maximino\ested wet cough Medical / Surgical History (Last Reviewed 04/07/24 @ 15:15 by William Camara MD) Elevated troponin level not due to acute coronary syndrome CKD (chronic kidney disease) stage 3, GFR 30-59 ml/min DNR (do not resuscitate) Advanced care planning/counseling discussion Palliative care encounter Atrial flutter Prosthetic cardiac valve vegetation Intracranial hemorrhage Discharge planning issues diverticulosis adenoma colon polyp Prosthetic Aortic Valve Overweight Hearing loss (Last Reviewed 04/07/24 @ 15:15 by William Camara MD) History of thoracentesis (~02/2024) H/O prosthetic aortic valve replacement redo of aortic valve hernia/hydrocele repair Appendectomy Aortic valve replaced Most Recent Vital Signs Temperature 36.9 C 07/09/24 16:03 Temperature Source Oral 07/09/24 16:03 Pulse 119 H 07/09/24 20:44 Pulse 109 H 07/09/24 19:01 Respiratory Rate 20 07/09/24 19:01 Respiratory Effort Non-Labored 07/09/24 17:59 Respiratory Depth Normal 07/09/24 17:59 Respiratory Pattern Normal 07/09/24 17:59 Blood Pressure 92/54 L 07/09/24 20:44 Blood Pressure Mean 82 07/09/24 19:01 Blood Pressure Position Supine 07/09/24 16:03 Pulse Oximetry 92 07/09/24 19:00 Oxygen Delivery Method Room Air 07/09/24 16:03 Oxygen Flow Rate 0 07/09/24 15:59 Pain Level 6 07/09/24 15:59 Allergies PEACH SKINS Adverse Reaction (Uncoded 07/09/24 16:10) Other (See Comment) MAKES MOUTH PUCKER Precautions Isolation Standard precaution 07/09/24 16:08 Active Medications Generic Name Dose Route Start Last Admin Trade Name Freq PRN Reason Stop Dose Admin Iohexol 100 ml 07/09/24 19:15 07/09/24 19:08 Omnipaque 350 Mg/Ml 100 Ml Btl IJ 08/08/24 23:59 100 ml DIRECTED LIANET Administration Sodium Chloride 50 ml 07/09/24 19:15 07/09/24 19:07 Normal Saline - Diluent 50 Ml Vial IV 50 ml .FOR DI USE LIANET Administration IV IV Catheter Type [Left Forearm Saline Lock ] IV Catheter Gauge [Left 18 Forearm] Diagnostics 07/09/24 07/09/24 07/09/24 Range/Units 19:18 18:35 17:37 WBC (4.4-10.8) 10^3/uL RBC (4.36-5.78) 10^6/uL Hgb (13.5-17.5) g/dL Hct (40.0-50.0) % MCV (80-95) fL MCH (27.0-33.0) pg MCHC (32.0-36.0) % RDW (11.8-14.1) % Plt Count (130-400) 10^3/uL MPV (8.0-11.0) fL Immature Gran % % Neutrophils % % Lymphocytes % % Monocytes % % Eosinophils % % Basophils % % Nucleated RBC % (0.0-0.3) % Absolute Neutrophils (1.2-6.7) 10^3/uL Absolute Lymphocytes (1.2-3.4) 10^3/uL Absolute Monocytes (0.1-0.8) 10^3/uL Absolute Eosinophils (0.0-0.7) 10^3/uL Absolute Basophils (0.0-0.2) 10^3/uL RBC Morphology PT (9.1-11.1) sec INR (0.9-1.1) VBG pH 7.39 (7.31-7.41) VBG pCO2 40 L (41-51) mmHg VBG pO2 28 mmHg VBG HCO3 24 (23-28) mmol/L VBG Total CO2 24 (24-29) mmol/L VBG O2 Saturation 50 % VBG Base Excess 0 (-2-3) mmol/L VBG Lactate 1.7 (<or=2.0) mmol/L Sodium (136-145) mmol/L Potassium (3.5-5.1) mmol/L Chloride (98-107) mmol/L Carbon Dioxide (21.0-32.0) mmol/L Anion Gap (3-11) mmol/L BUN (7-18) mg/dL Creatinine (0.70-1.30) mg/dL Est GFR (CKD-EPI 2020) (mL/min/1.73m2) Glucose (74-106) mg/dL Calcium (8.5-10.1) mg/dL Magnesium (1.8-2.4) mg/dL Total Bilirubin (0.2-1.0) mg/dL AST (15-37) U/L ALT (16-63) U/L Alkaline Phosphatase (46-116) U/L Ammonia (11-32) umol/L Troponin I Cancelled 22 (<or=76) ng/L NT-Pro-B Natriuret Pep 4015 H (<300) pg/mL Total Protein (6.4-8.2) g/dL Albumin (3.4-5.0) g/dL Procalcitonin < 0.10 ng/mL TSH (0.36-3.74) uIU/mL Free T4 (0.76-1.46) ng/dL Urine Color Dark Yellow (Yellow) Urine Clarity Clear (Clear) Urine pH 5.5 (5-8) Ur Specific [place] 1.025 (1.005-1.025) Urine Protein 100 H (Neg-Trace) mg/dL Urine Ketones Negative (Negative) mg/dL Urine Blood Trace-intact H (Negative) Urine Nitrite Negative (Negative) Urine Bilirubin Small H (Negative) Urine Urobilinogen 1.0 H (Up to 0.2) mg/dL Ur Leukocyte Esterase Negative (Negative) Urine RBC 0-2 (0-2) HPF Urine WBC Negative (0-5) HPF Ur Epithelial Cells Rare (Negative) HPF Urine Crystals Negative (Negative) HPF Urine Bacteria Negative (Negative) HPF Urine Mucus Moderate (Negative) Urine Other Negative (Negative) Ur Culture Indicated? No Urine Glucose Negative (Negative) mg/dL Urine Opiates Screen Negative (Negative) Urine Methadone Screen Negative (Negative) Ur Barbiturates Screen Negative (Negative) Ur Tricyclics Screen Negative (Negative) Ur Amphetamines Screen Negative (Negative) U Benzodiazepines Scrn Negative (Negative) Urine Cocaine Screen Negative (Negative) Ur THC Screen Negative (Negative) Ethyl Alcohol (<10) mg/dL ABO/Rh Antibody Screen 07/09/24 07/09/24 Range/Units 16:31 16:15 WBC 16.54 H (4.4-10.8) 10^3/uL RBC 3.14 L (4.36-5.78) 10^6/uL Hgb 8.9 L (13.5-17.5) g/dL Hct 29.2 L (40.0-50.0) % MCV 93 (80-95) fL MCH 28.3 (27.0-33.0) pg MCHC 30.5 L (32.0-36.0) % RDW 16.6 H (11.8-14.1) % Plt Count 119 L (130-400) 10^3/uL MPV 10.6 (8.0-11.0) fL Immature Gran % 1.1 % Neutrophils % 84.2 % Lymphocytes % 3.5 % Monocytes % 11.1 % Eosinophils % 0.0 % Basophils % 0.1 % Nucleated RBC % 1.6 H (0.0-0.3) % Absolute Neutrophils 13.93 H (1.2-6.7) 10^3/uL Absolute Lymphocytes 0.58 L (1.2-3.4) 10^3/uL Absolute Monocytes 1.84 H (0.1-0.8) 10^3/uL Absolute Eosinophils 0.00 (0.0-0.7) 10^3/uL Absolute Basophils 0.02 (0.0-0.2) 10^3/uL RBC Morphology Normal PT 13.6 H (9.1-11.1) sec INR 1.4 H (0.9-1.1) VBG pH (7.31-7.41) VBG pCO2 (41-51) mmHg VBG pO2 mmHg VBG HCO3 (23-28) mmol/L VBG Total CO2 (24-29) mmol/L VBG O2 Saturation % VBG Base Excess (-2-3) mmol/L VBG Lactate (<or=2.0) mmol/L Sodium 141 (136-145) mmol/L Potassium 3.5 (3.5-5.1) mmol/L Chloride 106 (98-107) mmol/L Carbon Dioxide 24.5 (21.0-32.0) mmol/L Anion Gap 10.5 (3-11) mmol/L BUN 14 (7-18) mg/dL Creatinine 1.3 (0.70-1.30) mg/dL Est GFR (CKD-EPI 2020) 53.84 (mL/min/1.73m2) Glucose 129 H (74-106) mg/dL Calcium 9.2 (8.5-10.1) mg/dL Magnesium 1.7 L (1.8-2.4) mg/dL Total Bilirubin 2.0 H (0.2-1.0) mg/dL AST 23 (15-37) U/L ALT 12 L (16-63) U/L Alkaline Phosphatase 93 (46-116) U/L Ammonia 20 (11-32) umol/L Troponin I 22 (<or=76) ng/L NT-Pro-B Natriuret Pep (<300) pg/mL Total Protein 6.9 (6.4-8.2) g/dL Albumin 2.6 L (3.4-5.0) g/dL Procalcitonin ng/mL TSH 4.45 H (0.36-3.74) uIU/mL Free T4 1.16 (0.76-1.46) ng/dL Urine Color (Yellow) Urine Clarity (Clear) Urine pH (5-8) Ur Specific [place] (1.005-1.025) Urine Protein (Neg-Trace) mg/dL Urine Ketones (Negative) mg/dL Urine Blood (Negative) Urine Nitrite (Negative) Urine Bilirubin (Negative) Urine Urobilinogen (Up to 0.2) mg/dL Ur Leukocyte Esterase (Negative) Urine RBC (0-2) HPF Urine WBC (0-5) HPF Ur Epithelial Cells (Negative) HPF Urine Crystals (Negative) HPF Urine Bacteria (Negative) HPF Urine Mucus (Negative) Urine Other (Negative) Ur Culture Indicated? Urine Glucose (Negative) mg/dL Urine Opiates Screen (Negative) Urine Methadone Screen (Negative) Ur Barbiturates Screen (Negative) Ur Tricyclics Screen (Negative) Ur Amphetamines Screen (Negative) U Benzodiazepines Scrn (Negative) Urine Cocaine Screen (Negative) Ur THC Screen (Negative) Ethyl Alcohol < 3.0 (<10) mg/dL ABO/Rh B Positive Antibody Screen NEGATIVE 07/09/24 18:25 Blood Culture - Pending Blood 07/09/24 18:17 Blood Culture - Pending Blood [id number] Documentation Fingerstick Glucose Start: 07/09/24 16:15 Freq: Status: Complete Protocol: Activity Type Activity Date Activity User E-sign Co-sign Detail Recorded Client Recorded Date Recorded By Document 07/09/24 16:14 BKG DAEMON(3) [id number] 07/09/24 16:15 BKG DAEMON(4) Intake and Output - 24 Hour Total 07/09/24 15:56 thru 07/09/24 20:05 Intake Total 550 Output Total 120 Balance 430 Weight 35.153 kg Intake: IV 550 Output: Urine 120 Other: Urine Color Light Marcie Urine Appearance Clear Falls Risk Assessment History of Falls Previous History 07/09/24 19:04 Contributing Factors Confusion,Impairments 07/09/24 19:04 Ambulatory Aids Uses ambulatory device 07/09/24 19:04 Tubes/Lines W/no contributing factors 07/09/24 19:04 Gait Evaluation W/no contributing factors 07/09/24 19:04 Cognition Cognitive impairment 07/09/24 19:04 Fall Total Score 71 07/09/24 19:04 Level of Risk High Risk 07/09/24 19:04 Problems (Last Reviewed 04/07/24 @ 15:15 by William Camara MD) Abscess (Acute) Pleural effusion (Acute) Encephalopathy (Acute) Hypomagnesemia (Acute) Abscess and cellulitis of gluteal region (Acute) Sepsis (Acute) Dehydration (Acute) Pneumonia (Acute) Pleural effusion (Chronic) Atrial fibrillation (Chronic) Myelodysplastic syndrome (Chronic) Anemia (Chronic) v v v v v v v v v Sending and/or Receiving Nurses: Please use comment section below to note any information pertinent to the patient hand-off not included above. Information / Comments: Pt admitted to [facility], confusion increasing over last 2 wks. Urine clean, gets frequent blood transfusions, was held this past wednesday as blood was within normal parameters. pt found to have abscess to right buttock, I&D done in ER. Pt BPs have been soft after meds to control HR. Pt [place]. Pt has been tachycardic, tachypneic, sats OK Report received from: KARYNA Kendall
[2024-07-10] VITALS (9 sets, daily range): BP systolic 88–107; BP diastolic 54–72; PULSE 95–124; RESP 14–16; TEMP 36.6–37.5; O2SAT 91–98
[2024-07-10] MEDS: CEFEPIME 1 GM in Normal Saline 50 ML IVPB (00:20)
[2024-07-10] MEDS: Sucralfate 1 GM TAB PO ×4 (00:20→21:01)
[2024-07-10] MEDS: Normal Saline Flush 10 ML SYR IVP ×3 (00:21→21:09)
[2024-07-10] MEDS: MAGNESIUM SULFATE 2 GM/50 ML BAG IV_INF (02:05)
[2024-07-10] MEDS: diphenhydrAMINE 25 MG CAP PO ×2 (03:26→21:01)
[2024-07-10] MEDS: Acetaminophen 325 MG TAB PO ×2 (03:26→23:32)
[2024-07-10] MEDS: Haloperidol 5 MG/ML VIAL 2 MG IM (05:10)
[2024-07-10 06:32] LABS: HCT 25.3 % (40.0-50.0); HGB 7.7 g/dL (13.5-17.5); MCH 28.4 pg (27.0-33.0); MCHC 30.4 % (32.0-36.0); MCV 93 fL (80-95); MPV 10.7 fL (8.0-11.0); Platelet Count 112 10^3/uL (130-400); RBC 2.71 10^6/uL (4.36-5.78); RDW 16.5 % (11.8-14.1); RDW-SD 55.8 fL; WBC 18.57 10^3/uL (4.4-10.8)
[2024-07-10 06:44] LABS: INR 1.5 (0.9-1.1); Prothrombin Time 14.6 sec (9.1-11.1)
[2024-07-10 06:52] LABS: ALT 11 U/L (16-63); AST 26 U/L (15-37); Albumin 2.2 g/dL (3.4-5.0); Alkaline Phosphatase 78 U/L (46-116); BUN 15 mg/dL (7-18); Bilirubin, Total 1.7 mg/dL (0.2-1.0); CREATININE 1.3 mg/dL (0.70-1.30); Calcium 8.8 mg/dL (8.5-10.1); Chloride 108 mmol/L (98-107); Estimated GFR 53.84 (mL/min/1.73m2); Glucose 121 mg/dL (74-106); Magnesium 1.7 mg/dL (1.8-2.4); Potassium 3.6 mmol/L (3.5-5.1); Sodium 143 mmol/L (136-145); Total Protein 6.1 g/dL (6.4-8.2); Vancomycin, Random 11.3 ug/mL
[2024-07-10] MEDS: Pantoprazole 40 MG TABCR PO ×2 (08:17→21:01)
[2024-07-10] MEDS: Ferrous Sulfate 325 MG TAB PO (08:17)
--- NOTE | 2024-07-10 08:50 | INITIAL_ITS ---
Date of service: 07/10/24 Time of Service: 08:50 Care Management Initial Assmt Initial Assessment Reason for Hospitalization: gluteal abscess and pneumonia Functional Status/Living Situation Patient Presentation: Abrahan was lying in bed dozing on and off when CM met with him. His daughter Jenna was with him at the time. Abrahan was pleasant when awake but remains a bit more confused than at baseline. He was smiling and informed CM that he feels good and that he had a good BM this morning. Abrahan was admitted on 07/09/24 with pneumonia and an a gluteal abscess. He is tachypneic and hypotensive however he remains afebrile. Abrahan lives in a single family home in [place] with his Jessy. His daughter Jenna checks on them regularly and is very supportive of their needs. Abrahan also has a daughter in [place] and a son in [place]. 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 Town of Residence: [place] Resides with: Spouse ( Jessy) Natural Supports: and children - Jenna closest Employment Status: Retired Instrumental Activities of Daily Living (ADLs): Independent Medications Medication Management: No Issues/Barriers identified Physical Functioning/Mobility Assistive Device: has a cane which he uses on occasion Advance Directives Advance Directives: Do you have an Advance Directive: Y 10/04/20 08:56 AD On File at [facility]: Y 10/04/20 08:56 Date Asked 03/10/24 04/07/24 08:25 AD Date Reviewed 07/09/24 07/09/24 15:59 COLST On File at [facility] No 11/24/23 16:54 COLST Date Scanned Code Status Resuscitation Status DNR/DNI Insurance Coverage/Financial Issues Insurance: Medicare [employer] MCR Supplement Care Team Visit Care Team Role Provider Type Jt French MD MD [facility] STAFF PHYSICIAN Rafiq El MD Primary Care Provider NON-[facility] STAFF PHYSICIAN Leonarda Clifton MD Emergency Provider [facility] STAFF PHYSICIAN Kian Stacy Admit Provider NON-[facility] STAFF PHYSICIAN Attending Provider Discharge Potential Discharge Needs: PCP F/U Appt Anticipated Barriers to Discharge: None Identified Patient/Family Education Needs: Review discharge instructions, discuss Ask Me Three Transportation: Private vehicle Plan: Anticipate Umesh will be discharged home, possibly with new home health services, when medically cleared. He will follow up with his PCP and plan of care and transport with family.. CM will follow and continue to support discharge planning efforts, Social Determinants of Health Screening Social Determinants of health last assessed in clinic: 07/09/24 Will the Patient Participate in the Screening?: Unable to obtain Do you worry about having a steady place to live?: no Problems where you live: no known problems In the past 12 months, have you had to go without electric, gas, oil or water in your home?: no Has lack of transportation kept you from medical appointments or from doing things needed for daily living?: no Has anyone in your life made you feel unsafe or unsupported?: no How hard is it for you to pay for the very basics like food, housing, medical care, and heating? Would you say it is:: Not hard at all Do you want help finding or keeping work or a job?: I do not need or want help If for any reason you need help with day-to-day activities such as bathing, preparing meals, shopping, managing finances, etc., do you get the help you need?: I get all the help I need How often do you feel lonely or isolated from those around you?: Never Do you speak a language other than [place]ar[place] at home?: No Does the patient want assistance with any of the above?: No Comments: Pt demented PFSH All Active Problems (Updated 07/10/24 @ 04:13 by Kian Stacy) Abscess (Acute) Pleural effusion (Acute) Encephalopathy (Acute) Hypomagnesemia (Acute) Abscess and cellulitis of gluteal region (Acute) Sepsis (Acute) Dehydration (Acute) Pleural effusion (Acute) Pneumonia (Acute) Palliative care patient (Acute) Recurrent gastrointestinal hemorrhage (Acute) Pneumothorax, iatrogenic (Acute) Pleural effusion (Chronic) Atrial fibrillation (Chronic) Chronic anticoagulation (Chronic) Myelodysplastic syndrome (Chronic) Anemia (Chronic) Encounter for blood transfusion (Acute) Anemia (Chronic) H/O mechanical aortic valve replacement (Chronic) Diverticulosis of colon without diverticulitis (Chronic) Upper GI bleed (Acute) 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 ear (Acute) Sensorineural hearing loss (SNHL) of right ear with restricted hearing of left ear (Acute) Sensorineural hearing loss of combined sites, bilateral (Acute 08/03/16) Medical History Elevated troponin level not due to acute coronary syndrome CKD (chronic kidney disease) stage 3, GFR 30-59 ml/min DNR (do not resuscitate) Not sure about intubation, +treat, +transfer, +abx, +IV fluids Advanced care planning/counseling discussion Palliative care encounter Atrial flutter Prosthetic cardiac valve vegetation Intracranial hemorrhage Discharge planning issues diverticulosis adenoma colon polyp Prosthetic Aortic Valve Overweight Hearing loss bilat Surgical History History of thoracentesis (~02/2024) H/O prosthetic aortic valve replacement redo of aortic valve hernia/hydrocele repair Appendectomy Aortic valve replaced Social History Smoking/Tobacco Use Status: Current-Occasional Smoking risk assessment performed?: Yes Alcohol Intake: current Alcohol Intake frequency: holidays/special occasions only Alcohol type: wine Drug use: Never Substance use type: does not use Housing: house Do you feel safe at home: Yes Do you feel safe in your relationship?: Yes
--- NOTE | 2024-07-10 09:11 | NUR.NOTE ---
Pt is confused at baseline. Extremely ST[place]ING [place] with hearing aids present but still difficult to communicate. Pt ambulates with the assistance of 1 person and cane. daughter is present in room and will stay until patients gets here. Pt always ahs a caregiver in room with him. Pt usually gets blood transfusions [id number] but was not done on wednesday when it was due r/t illness. Unsure if transfusion will be done while pt is inpatient with us. H&H as well as RBC levels are decreased. Provider aware. Pt pulled out IV last night so another one was placed this am to R forearm. IV fluids were not running d/t IV being pulled out so fluids were started this am by this RN. BP was very soft at 88/55 so metoprolol was held and will recheck after pts fluids have been running for a few hours. Pt had I&D of gluteal abcess yesterday. Dressing was changed byu cook night for drainage to dressing. Pt has iodaform packing and covered with mepilex to area. Will change bandage as needed for saturation. Pt has hx of chronic pain but when asked this am he stated he has no pain right now. Lung sounds are DIM throughout with some rhonchi that clears with cough. L lung base absent. LBM was 4/26. Will continue with plan of care
[2024-07-10] MEDS: CEFEPIME 2 GM in Normal Saline 100 ML IVPB ×2 (10:10→21:41)
--- NOTE | 2024-07-10 13:34 | W.PM.PROGNOT ---
Date of Service Date of service: 07/10/24 Time of Service: 13:34 Assessment and Plan Assessment and plan (1) Sepsis: Start date: 07/09/24 Status: Acute Assessment and plan: -patient met criteria for sepsis with WBC 16, HR 125, and cellulitis/abscess as the source of infection -patient does not meet criteria for severe sepsis as there are no signs of endorgan damage -started on Vanco and cefepime, will continue - Follow-up a.m. CBC (2) Abscess and cellulitis of gluteal region: Start date: 07/09/24 Status: Acute Assessment and plan: - Source of infection for sepsis as noted above -Status post drainage with continued IV vancomycin and cefepime. -Wound and bandage care by the nurses. (3) Encephalopathy: Start date: 07/09/24 Status: Acute Assessment and plan: -Patient has had signs of progressive dementia with sundowning according to the daughter, and while confused with sepsis, is difficult to say whether this is just worsening of progressive dementia (4) Pneumonia: Start date: 07/09/24 Status: Acute Assessment and plan: -Left lower lobe with some chronic changes on chest x-ray. -This is persistent from findings 06/13/2024. -Patient does have frequent hospital visits and he will be covered for hospital-acquired pneumonia. (5) Pleural effusion: Status: Chronic Assessment and plan: -Normal echocardiogram and this could be secondary to inflammation. - Patient satting well on room air (6) Hypomagnesemia: Start date: 07/09/24 Status: Acute Assessment and plan: Patient will be repleted IV and follow-up lab daily. (7) Myelodysplastic syndrome: Status: Chronic Assessment and plan: -On treatment with Aranesp and twice a week evaluation the transfusion center with blood transfusions as needed. - As discussed with transfusion center, patient received transfusion of 1 unit for under 8.5 and 2 units under 7 - Have ordered 1 unit packed red blood cell the afternoon of 07/10/2024 - Follow-up a.m. CBC transfuse additional units as needed (8) Anemia: Status: Chronic Assessment and plan: -Associated with MDS but has had blood loss anemia when on Coumadin for his prosthetic aortic valve. - Transfusing as noted above (9) Atrial fibrillation: Status: Chronic Assessment and plan: -Patient is having junctional tachycardia on presentation and will continue metoprolol split dosing because of low blood pressure. - Not anticoagulated due to history of bleeding as noted above (10) CKD (chronic kidney disease) stage 3, GFR 30-59 ml/min: Assessment and plan: Stable with monitoring while hospitalized. Gentle IV hydration with recent decreased intake and clinically appearing dry. Subjective Subjective Interval history since last seen: Patient states that he is doing well and has no complaints or concerns, though he does appear confused Exam Narrative Exam Narrative: Fatigued, hard of hearing older gentleman fidgeting, laying in bed but in no acute distress, awake, alert, appears to be oriented to person only, heart regular rate rhythm, lungs clear to auscultation bilaterally, abdomen soft, nontender, nondistended Objective Last Vital Signs Temp 97.9 F 07/10/24 07:37 Pulse 95 H 07/10/24 07:37 Resp 16 07/10/24 07:37 BP 88/55 L 07/10/24 08:30 Pulse Ox 98 07/10/24 07:37 Laboratory Results - last 24 hr 07/09/24 07/09/24 07/09/24 16:15 16:31 17:37 WBC 16.54 H RBC 3.14 L Hgb 8.9 L Hct 29.2 L MCV 93 MCH 28.3 MCHC 30.5 L RDW 16.6 H Plt Count 119 L MPV 10.6 Immature Gran % 1.1 Neutrophils % 84.2 Lymphocytes % 3.5 Monocytes % 11.1 Eosinophils % 0.0 Basophils % 0.1 Nucleated RBC % 1.6 H Absolute Neutrophils 13.93 H Absolute Lymphocytes 0.58 L Absolute Monocytes 1.84 H Absolute Eosinophils 0.00 Absolute Basophils 0.02 RBC Morphology Normal PT 13.6 H INR 1.4 H VBG pH 7.39 VBG pCO2 40 L VBG pO2 28 VBG HCO3 24 VBG Total CO2 24 VBG O2 Saturation 50 VBG Base Excess 0 VBG Lactate 1.7 Sodium 141 Potassium 3.5 Chloride 106 Carbon Dioxide 24.5 Anion Gap 10.5 BUN 14 Creatinine 1.3 Est GFR (CKD-EPI 2020) 53.84 Glucose 129 H Calcium 9.2 Magnesium 1.7 L Total Bilirubin 2.0 H AST 23 ALT 12 L Alkaline Phosphatase 93 Ammonia 20 Troponin I 22 22 NT-Pro-B Natriuret Pep 4015 H Total Protein 6.9 Albumin 2.6 L Procalcitonin < 0.10 TSH 4.45 H Free T4 1.16 Urine Color Urine Clarity Urine pH Ur Specific [place] Urine Protein Urine Ketones Urine Blood Urine Nitrite Urine Bilirubin Urine Urobilinogen Ur Leukocyte Esterase Urine RBC Urine WBC Ur Epithelial Cells Urine Crystals Urine Bacteria Urine Mucus Urine Other Ur Culture Indicated? Urine Glucose Random Vancomycin Urine Opiates Screen Urine Methadone Screen Ur Barbiturates Screen Ur Tricyclics Screen Ur Amphetamines Screen U Benzodiazepines Scrn Urine Cocaine Screen Ur THC Screen Ethyl Alcohol < 3.0 ABO/Rh B Positive Antibody Screen NEGATIVE 07/09/24 07/09/24 07/10/24 18:35 19:18 06:10 WBC 18.57 H RBC 2.71 L Hgb 7.7 L Hct 25.3 L MCV 93 MCH 28.4 MCHC 30.4 L RDW 16.5 H Plt Count 112 L MPV 10.7 Immature Gran % Neutrophils % Lymphocytes % Monocytes % Eosinophils % Basophils % Nucleated RBC % Absolute Neutrophils Absolute Lymphocytes Absolute Monocytes Absolute Eosinophils Absolute Basophils RBC Morphology PT 14.6 H INR 1.5 H VBG pH VBG pCO2 VBG pO2 VBG HCO3 VBG Total CO2 VBG O2 Saturation VBG Base Excess VBG Lactate Sodium 143 Potassium 3.6 Chloride 108 H Carbon Dioxide 24.0 Anion Gap 11.0 BUN 15 Creatinine 1.3 Est GFR (CKD-EPI 2020) 53.84 Glucose 121 H Calcium 8.8 Magnesium 1.7 L Total Bilirubin 1.7 H AST 26 ALT 11 L Alkaline Phosphatase 78 Ammonia Troponin I Cancelled NT-Pro-B Natriuret Pep Total Protein 6.1 L Albumin 2.2 L Procalcitonin TSH Free T4 Urine Color Dark Yellow Urine Clarity Clear Urine pH 5.5 Ur Specific [place] 1.025 Urine Protein 100 H Urine Ketones Negative Urine Blood Trace-intact H Urine Nitrite Negative Urine Bilirubin Small H Urine Urobilinogen 1.0 H Ur Leukocyte Esterase Negative Urine RBC 0-2 Urine WBC Negative Ur Epithelial Cells Rare Urine Crystals Negative Urine Bacteria Negative Urine Mucus Moderate Urine Other Negative Ur Culture Indicated? No Urine Glucose Negative Random Vancomycin 11.3 Urine Opiates Screen Negative Urine Methadone Screen Negative Ur Barbiturates Screen Negative Ur Tricyclics Screen Negative Ur Amphetamines Screen Negative U Benzodiazepines Scrn Negative Urine Cocaine Screen Negative Ur THC Screen Negative Ethyl Alcohol ABO/Rh Antibody Screen Time Spent with Patient Time Spent with Patient: >50 minutes Time was spent: preparing to see the patient(eg.review tests), obtaining and/or reviewing separately otained hiistory, ordering medications,tests, procedures, referring, communicating with other health physician locums urgent care, indepentently interpreting results, counseling the patient and care coordination
--- NOTE | 2024-07-10 15:05 | PHA.REVIEW2 ---
Pharmacy Admission Review Admission Clinical Review Admission Pharmacy Review: Abscess (Acute) Pleural effusion (Acute) Encephalopathy (Acute) Hypomagnesemia (Acute) Abscess and cellulitis of gluteal region (Acute) Sepsis (Acute) Dehydration (Acute) Pneumonia (Acute) PEACH SKINS Adverse Reaction (Uncoded 07/09/24 16:10) Other (See Comment) Resuscitation Status DNR/DNI Height 5 ft 9 in Weight 79.7 kg Comments Comments/Follow Ups: patient receives darbepoetin 300 mcg q2 weeks in infusion room (last dose 07/07/24) Pharmacy Admission Review Renal Dosing Renal Dosing: BUN 15 mg/dL (7-18) 07/10/24 06:10 Creatinine 1.3 mg/dL (0.70-1.30) 07/10/24 06:10 Medications needing adjustments: Reviewed (crcl = 46) List of meds needing interventions: cefepime appropriately adjusted to 2g q12h, other meds OK Anticoagulation Anticoagulation: Hgb 7.7 g/dL (13.5-17.5) L 07/10/24 06:10 Hct 25.3 % (40.0-50.0) L 07/10/24 06:10 Plt Count 112 10^3/uL (130-400) L 07/10/24 06:10 INR 1.5 (0.9-1.1) H 07/10/24 06:10 Creatinine 1.3 mg/dL (0.70-1.30) 07/10/24 06:10 DVT Prophylaxis: Reviewed (TEDS - chemical VTE prophylaxis contraindication) Therapeutic Anticoagulation: Reviewed (previously on coumadin (prosthetic aortic valve) - had blood loss anemia. risk/benefits weighed, pt no longer on anticoagulation (INR = 1.5 today)) Opiate Usage Evaluate Pain Scale/Pains Meds: Reviewed (not on opiates) Relevant Labs Relevant Labs: Sodium 143 mmol/L (136-145) 07/10/24 06:10 Potassium 3.6 mmol/L (3.5-5.1) 07/10/24 06:10 Chloride 108 mmol/L (98-107) H 07/10/24 06:10 Magnesium 1.7 mg/dL (1.8-2.4) L 07/10/24 06:10 Electrolytes, C-Reactive P, ESR: Reviewed (hgb = 7.7, hct = 25.3) DM Control DM Control: N/A (not diabetic) Cardiac Review Cardiac Review: Troponin I Cancelled 07/09/24 19:18 NT-Pro-B Natriuret Pep 4015 pg/mL (<300) H 07/09/24 17:37 BP, HR, EF%: Reviewed (2 doses of 10 mg IV diltiazem given last night in ED (junctional tachychardia)) List meds needing interventions: metoprolol succinate adjusted to 50 mg BID (low bp) QTc Review QTc: Reviewed (QTc = 385 07/09/24) IV to PO Switch IV Medications: Reviewed (IV abx for now, switch to PO when appropriate. other meds are PO) Home Meds Home Med List reviewed: Reviewed Current Meds Current Medication Order Review: Reviewed Pharmacy Antibiotic Review Relevant Labs: Relevant Labs 07/09/24 17:37 Procalcitonin < 0.10 Pharmacy Antibiotic Activity: Reviewed, no change Comments: cefepime 2g q12h + vanco 1g q24h (indication: sepsis, pneumonia, cellulitis). vanco random level ordered for 07/11 with AM labs Comments Comments/Follow Ups: patient receives darbepoetin 300 mcg q2 weeks in infusion room (last dose 07/07/24)
--- NOTE | 2024-07-10 15:07 | PCNE_ITS ---
Date of service: 07/10/24 Time of Service: 14:00 History of Present Illness Narrative: Mr. Gauthier is an 83 y/o M currentl hospitalized at [facility] 2/2 sepsis c/b abscess of L medial buttock and LLL PNA; PMHx dx MDS, h/o AVR, CVA (2016), CHF, A fib; w/signs of progressing dementia w/o diagnosis; present at bedside daughter Jenna, Jenna provides full report; Abrahan remains sleeping throughout visit Hospital Course: Abrahan presented to ED on 07/09 w/CC increased confusion, decreased oral intake x1 wk; work up consistent w/persistent LLL PNA (previously Tx'd 06/13) and abscess of medial L buttock, IND in ED, started on cefepime and vanc, gentle IVFs, admitted for ongoing management; some agitation once reached floor, consistent w/encephalopathy/dementia sundowning, haldol IM w/good effect MDS: f/b Dr Pace; presents to [facility] infusion Tu/Fr weekly for infusions; to date Abrahan has wanted to continue these infusions as long as possible, he is not interested in stopping these or considering hospice. - per infusion staff: decline noted over last 6 mos, w/more rapid increase in last 4 mos; increase burden of disease, worsening dementia patterns w/confusion and nightmares, weight loss of 15lbs in 6-8 wks; no longer presenting by himself; 2 mos ago when his was more sick things appeared to be more difficult for both of them; this is the last treatment option, per infusion report from onc Pain: daughter reports increased pain, throughout entire body, in joints and throughout; pain worse w/o transfusions, will c/o pain more on days before transfusion; using apap for pain Mathew: always been low, w/recent change in reduced appetite as well; denies swallowing/choking concerns; he will deny wanting meal/hunger, and the next day be upset wasn't offered food [place]: extremely hard of hearing, wants to manage own hearing aids, often puts batteries in incorrectly and can't hear, increased frustration; does hear better when they are working correctly MH: worsening memory/cognitive changes, most noteable more recently, creeping up more over last few months; sundowning w/increased confusion, agitation around 5p; this is worse on days before infusion; increased grouchiness and agitation; aware that he received Haldol d/t agitation yesterday on [employer], while it worked, Jenna wasn't pleased that he wasn't left alone first to self- soothe; his days/nights have been mixed up more recently, giving Tylenol PM to help w/this, it does help him sleep - no longer driving, as of 2 weeks ago; 6 mos ago he was able to drive safely Social: one of his best friends just 2 days ago from a stroke. Abrahan is having a hard time with this, and the fact that most of his friends are now - Jessy is non-ambulatory, historically they had quite delineated roles in the home, he did outside chores, she did inside, including meals preparation Autonomy: requiring assistance w/all IADLs; iADL at baseline; has not been evaluated by PT - Caregiving: daughter Jenna living w/Abrahan and Jessy Mcnulty-Guilherme, returns to [place]; son Umesh helps when she is gone, though is not staying with them; Jenna now set them up for [employer] pre-made meals; Jessy doing his medications ACP: recently Abrahan has had a few days (pre-infusion days) he has appeared really bad, where family concerned he may , and where he was also indicating this, in reference to multiple HC engagements he has said I'm getting tired of this; historically pt and do not want strangers in home, are hesitant to have any additional help for various reasons - very hesitant to engage with palliative care, associated w/hospice; he is not ready for hospice, wants to continue infusions - AD previously complete, [facility] Jessy, co-agents Umesh and Chelsie; would want LST as long as able to communicate, be conscious and if not terminal; DNR/I w/COLST completed Assessment and Plan Assessment and plan (1) Sepsis: Status: Acute Assessment and plan: w/abscess/cellulitis as source; also w/persistent LLL PNA - started on cefepime and vanc in ED (2) Abscess and cellulitis of gluteal region: Status: Acute Assessment and plan: IND in ED on cefepime and vanc (3) Pneumonia: Status: Acute Assessment and plan: persistent from 06/13 initial treatment now on cefepime and vanc (4) Pleural effusion: Status: Acute (5) Myelodysplastic syndrome: Status: Chronic (6) Encounter for blood transfusion: Status: Acute (7) Dehydration: Status: Acute (8) Chronic anticoagulation: Status: Chronic (9) Hearing loss: (10) Cognitive and behavioral changes: Status: Acute Assessment and plan: w/worsening features during hospitalization, r/t sepsis/infections, hospital acquired, etc - no formal dementia work-up sundowning features of increased confusion/agitation around 5pm noted by family - Haldol yesterday w/good effect for agitation consider Seroquel 12.5-25mg QPM while hospitalized, to continue outpatient if tolerated; will review at PC visit 07/13 - previously w/Tylenol PM QHS w/some effect (11) Impaired instrumental activities of daily living: Status: Acute Assessment and plan: fully dependent; no current services d/t preference for no strangers in home historically relies on for meals/preparation; she is having increased difficulty doing so Jenna, daughter, providing full assistance w/IADLs [employer], son assists PRN other days - signed up for [employer] pre-made meals (12) Palliative care patient: Status: Acute Assessment and plan: f/u PC outpatient visit previously scheduled for 07/13; daughter Jenna will be present; encouraged Jessy attend - recommend slow, non-invasive visits to build trust and understanding for palliative care and philosophy of care - first visits to work on sxs management: pain, sleep, sundowning; meds managed by - ongoing work to review MDS progression, treatment plans and when to consider discontinuing treatments; to date this has not been an option for Abrahan - connection to community resources to reduce burden on and family, support Abrahan remaining in home - EAP if he opts to not present to hospital/have further infusion treatments (13) Advanced care planning/counseling discussion: Assessment and plan: reviewed palliative care, plans for moving forward, moving slowly, working with Abrahan and Jessy to allow them to maintain control; encourage for more supports outside of family to reduce burden reviewed recent relevant history, and current preferences in care they would want to pursue infusion while hospitalized as this aligns w/his current GOC and aligns w/AD preferences all family hesitant to go against his wishes spent 25m w/ACP Jenna would like Jessy present for PC conversations as much as possible moving forward Review of Systems Narrative: as per HPI PFSH All Active Problems (Updated 07/10/24 @ 15:13 by Natalee Cantu NP) Impaired instrumental activities of daily living (Acute) Cognitive and behavioral changes (Acute) Abscess (Acute) Pleural effusion (Acute) Encephalopathy (Acute) Hypomagnesemia (Acute) Abscess and cellulitis of gluteal region (Acute) Sepsis (Acute) Dehydration (Acute) Pleural effusion (Acute) Pneumonia (Acute) Palliative care patient (Acute) Recurrent gastrointestinal hemorrhage (Acute) Pneumothorax, iatrogenic (Acute) Pleural effusion (Chronic) Atrial fibrillation (Chronic) Chronic anticoagulation (Chronic) Myelodysplastic syndrome (Chronic) Anemia (Chronic) Encounter for blood transfusion (Acute) Anemia (Chronic) H/O mechanical aortic valve replacement (Chronic) Diverticulosis of colon without diverticulitis (Chronic) Upper GI bleed (Acute) 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 ear (Acute) Sensorineural hearing loss (SNHL) of right ear with restricted hearing of left ear (Acute) Sensorineural hearing loss of combined sites, bilateral (Acute 08/03/16) Medical History Elevated troponin level not due to acute coronary syndrome CKD (chronic kidney disease) stage 3, GFR 30-59 ml/min DNR (do not resuscitate) Not sure about intubation, +treat, +transfer, +abx, +IV fluids Advanced care planning/counseling discussion Palliative care encounter Atrial flutter Prosthetic cardiac valve vegetation Intracranial hemorrhage Discharge planning issues diverticulosis adenoma colon polyp Prosthetic Aortic Valve Overweight Hearing loss bilat Surgical History History of thoracentesis (~02/2024) H/O prosthetic aortic valve replacement redo of aortic valve hernia/hydrocele repair Appendectomy Aortic valve replaced Social History Smoking/Tobacco Use Status: Current-Occasional Smoking risk assessment performed?: Yes Alcohol Intake: current Alcohol Intake frequency: holidays/special occasions only Alcohol type: wine Drug use: Never Substance use type: does not use Housing: house Do you feel safe at home: Yes Do you feel safe in your relationship?: Yes Exam Narrative Exam Narrative: General: older adult male, lying on side, facing window, eyes intermittently open and close; some light groaning at end of visit w/rocking body, resolves spontaneously HEENT: normocephalic, atraumatic, hearing aids in place, does not react to light/medium volumed conversation in same room Resp: resp even and unlabored; cough intermittent, dry Results Last Vital Signs Temp 97.9 F 07/10/24 07:37 Pulse 95 H 07/10/24 07:37 Resp 16 07/10/24 07:37 BP 88/55 L 07/10/24 08:30 Pulse Ox 98 07/10/24 07:37 Labs 07/10/24 06:10 07/10/24 06:10 Labs: Laboratory Results - last 24 hr 07/09/24 07/09/24 07/09/24 16:15 16:31 17:37 WBC 16.54 H RBC 3.14 L Hgb 8.9 L Hct 29.2 L MCV 93 MCH 28.3 MCHC 30.5 L RDW 16.6 H Plt Count 119 L MPV 10.6 Immature Gran % 1.1 Neutrophils % 84.2 Lymphocytes % 3.5 Monocytes % 11.1 Eosinophils % 0.0 Basophils % 0.1 Nucleated RBC % 1.6 H Absolute Neutrophils 13.93 H Absolute Lymphocytes 0.58 L Absolute Monocytes 1.84 H Absolute Eosinophils 0.00 Absolute Basophils 0.02 RBC Morphology Normal PT 13.6 H INR 1.4 H VBG pH 7.39 VBG pCO2 40 L VBG pO2 28 VBG HCO3 24 VBG Total CO2 24 VBG O2 Saturation 50 VBG Base Excess 0 VBG Lactate 1.7 Sodium 141 Potassium 3.5 Chloride 106 Carbon Dioxide 24.5 Anion Gap 10.5 BUN 14 Creatinine 1.3 Est GFR (CKD-EPI 2020) 53.84 Glucose 129 H Calcium 9.2 Magnesium 1.7 L Total Bilirubin 2.0 H AST 23 ALT 12 L Alkaline Phosphatase 93 Ammonia 20 Troponin I 22 22 NT-Pro-B Natriuret Pep 4015 H Total Protein 6.9 Albumin 2.6 L Procalcitonin < 0.10 TSH 4.45 H Free T4 1.16 Urine Color Urine Clarity Urine pH Ur Specific [place] Urine Protein Urine Ketones Urine Blood Urine Nitrite Urine Bilirubin Urine Urobilinogen Ur Leukocyte Esterase Urine RBC Urine WBC Ur Epithelial Cells Urine Crystals Urine Bacteria Urine Mucus Urine Other Ur Culture Indicated? Urine Glucose Random Vancomycin Urine Opiates Screen Urine Methadone Screen Ur Barbiturates Screen Ur Tricyclics Screen Ur Amphetamines Screen U Benzodiazepines Scrn Urine Cocaine Screen Ur THC Screen Ethyl Alcohol < 3.0 ABO/Rh B Positive Antibody Screen NEGATIVE 07/09/24 07/09/24 07/10/24 18:35 19:18 06:10 WBC 18.57 H RBC 2.71 L Hgb 7.7 L Hct 25.3 L MCV 93 MCH 28.4 MCHC 30.4 L RDW 16.5 H Plt Count 112 L MPV 10.7 Immature Gran % Neutrophils % Lymphocytes % Monocytes % Eosinophils % Basophils % Nucleated RBC % Absolute Neutrophils Absolute Lymphocytes Absolute Monocytes Absolute Eosinophils Absolute Basophils RBC Morphology PT 14.6 H INR 1.5 H VBG pH VBG pCO2 VBG pO2 VBG HCO3 VBG Total CO2 VBG O2 Saturation VBG Base Excess VBG Lactate Sodium 143 Potassium 3.6 Chloride 108 H Carbon Dioxide 24.0 Anion Gap 11.0 BUN 15 Creatinine 1.3 Est GFR (CKD-EPI 2020) 53.84 Glucose 121 H Calcium 8.8 Magnesium 1.7 L Total Bilirubin 1.7 H AST 26 ALT 11 L Alkaline Phosphatase 78 Ammonia Troponin I Cancelled NT-Pro-B Natriuret Pep Total Protein 6.1 L Albumin 2.2 L Procalcitonin TSH Free T4 Urine Color Dark Yellow Urine Clarity Clear Urine pH 5.5 Ur Specific [place] 1.025 Urine Protein 100 H Urine Ketones Negative Urine Blood Trace-intact H Urine Nitrite Negative Urine Bilirubin Small H Urine Urobilinogen 1.0 H Ur Leukocyte Esterase Negative Urine RBC 0-2 Urine WBC Negative Ur Epithelial Cells Rare Urine Crystals Negative Urine Bacteria Negative Urine Mucus Moderate Urine Other Negative Ur Culture Indicated? No Urine Glucose Negative Random Vancomycin 11.3 Urine Opiates Screen Negative Urine Methadone Screen Negative Ur Barbiturates Screen Negative Ur Tricyclics Screen Negative Ur Amphetamines Screen Negative U Benzodiazepines Scrn Negative Urine Cocaine Screen Negative Ur THC Screen Negative Ethyl Alcohol ABO/Rh Antibody Screen Time Spent Time Spent with Patient Time Spent(min): 65
[2024-07-10] MEDS: VANCOMYCIN/WATER (PEG) 1 GM/200 ML BAG IV (16:29)
[2024-07-10 21:42] LABS: HCT 29.9 % (40.0-50.0); HGB 9.2 g/dL (13.5-17.5)
[2024-07-10] MEDS: Normal Saline 1,000 ML 100 ML IV (23:33)
[2024-07-11 04:03] VITALS: BP 136/87; PULSE 116; RESP 15; TEMP 36.2; O2SAT 95
[2024-07-11 06:28] LABS: HCT 27.7 % (40.0-50.0); HGB 8.9 g/dL (13.5-17.5); MCH 29.3 pg (27.0-33.0); MCHC 32.1 % (32.0-36.0); MCV 91 fL (80-95); MPV 11.1 fL (8.0-11.0); RBC 3.04 10^6/uL (4.36-5.78); RDW 16.4 % (11.8-14.1); RDW-SD 53.4 fL; WBC 7.27 10^3/uL (4.4-10.8)
[2024-07-11 06:38] LABS: Prothrombin Time 13.3 sec (9.1-11.1)
[2024-07-11 06:41] LABS: INR 1.3 (0.9-1.1)
[2024-07-11 07:06] LABS: ALT 12 U/L (16-63); AST 27 U/L (15-37); Albumin 2.1 g/dL (3.4-5.0); Alkaline Phosphatase 82 U/L (46-116); Anion Gap 10.8 mmol/L (3-11); BUN 14 mg/dL (7-18); Bilirubin, Total 1.7 mg/dL (0.2-1.0); CO2 23.2 mmol/L (21.0-32.0); Calcium 8.3 mg/dL (8.5-10.1); Chloride 111 mmol/L (98-107); Estimated GFR 73.76 (mL/min/1.73m2); Glucose 111 mg/dL (74-106); Potassium 3.3 mmol/L (3.5-5.1); Sodium 145 mmol/L (136-145); Total Protein 5.9 g/dL (6.4-8.2); Vancomycin, Random 10.6 ug/mL
[2024-07-11 07:08] LABS: Platelet Count 95 10^3/uL (130-400)
[2024-07-11] MEDS: Sucralfate 1 GM TAB PO (07:28)
[2024-07-11] MEDS: Pantoprazole 40 MG TABCR PO (07:28)
[2024-07-11] MEDS: Normal Saline Flush 10 ML SYR IVP (07:29)
[2024-07-11] MEDS: Metoprolol CR 50 MG TABCR PO (07:29)
[2024-07-11 07:50] VITALS: BP 124/88; PULSE 116; RESP 16; TEMP 36.6; O2SAT 97
--- NOTE | 2024-07-11 08:47 | PDOC.CMPRO ---
Date of service: 07/11/24 Time of Service: 08:47 Care Management Progress Note Discharge Potential Discharge Needs: PCP F/U Appt Anticipated Barriers to Discharge: None Identified Patient/Family Education Needs: Review discharge instructions, discuss Ask Me Three Transportation: Private vehicle Plan: Anticipate Abrahan will be discharged home, possibly with new home health services, when medically cleared. He will follow up with his PCP and plan of care and transport with family.. CM will follow and continue to support discharge planning efforts, Social Determinants of Health Screening Social Determinants of health last assessed in clinic: 07/09/24 Will the Patient Participate in the Screening?: Unable to obtain Do you worry about having a steady place to live?: no Problems where you live: no known problems In the past 12 months, have you had to go without electric, gas, oil or water in your home?: no Has lack of transportation kept you from medical appointments or from doing things needed for daily living?: no Has anyone in your life made you feel unsafe or unsupported?: no How hard is it for you to pay for the very basics like food, housing, medical care, and heating? Would you say it is:: Not hard at all Do you want help finding or keeping work or a job?: I do not need or want help If for any reason you need help with day-to-day activities such as bathing, preparing meals, shopping, managing finances, etc., do you get the help you need?: I get all the help I need How often do you feel lonely or isolated from those around you?: Never Do you speak a language other than [place] at home?: No Does the patient want assistance with any of the above?: No Comments: Pt demented
[2024-07-11] MEDS: Normal Saline 1,000 ML 100 ML IV (09:43)
[2024-07-11] MEDS: CEFEPIME 2 GM in Normal Saline 100 ML IVPB (09:46)
--- NOTE | 2024-07-11 10:37 | W.NUTRFU ---
Date of service: 07/11/24 Time of Service: 10:38 Nutrition Note NOTE: 83yo male pt being treated for sepsis with abcess/cellulitis to gluteal region and LLL PNA. Pt with noted cognitive and behavioral changes - impaired ability to perform ADL's. Pt intake low x at least 1 week with reported 15lb wt loss x 6-8 weeks. Chart hx shows 17.6lb wt loss since 02/13/24. Ordered for regular diet with normal consistencies - denies chewing/swallowing concerns. Total protein and albumin labs low today (5.9/2.1). Nutrition Dx: inadequate intake related to current state of illness (PNA) as well as behavioral changes interfering with routine meals, combined with increased energy and protein needs for wound healing - as evidenced by significant weight loss of 9% of his body weight over 5 months. Suggest liquid protein ordered TID for help with wound healing and protein intake. Kitchen will offer ONS - Boost, Gelatein, CIB shakes. Suggest 500mg vitamin C BID, 220mg Zinc sulfate, 2,0000IU cholecalciferol for wound healing Time Spent in Nutritional Counseling and Treatment: 5 min
--- NOTE | 2024-07-11 10:58 | W.PM.DS.N ---
Date of service: 07/11/24 Time of Service: 10:58 DS: Diagnosis Discharge Diagnosis (1) Sepsis: Status: Acute (2) Abscess and cellulitis of gluteal region: Status: Acute (3) Encephalopathy: Status: Acute (4) Pneumonia: Status: Acute (5) Pleural effusion: Status: Chronic (6) Hypomagnesemia: Status: Acute (7) Myelodysplastic syndrome: Status: Chronic (8) Anemia: Status: Chronic (9) Atrial fibrillation: Status: Chronic (10) CKD (chronic kidney disease) stage 3, GFR 30-59 ml/min: Discharge Plan Disposition Patient Disposition: Home W/Home Health Services Condition: Good Discharge Details Reason For Visit: Sepsis, Gluteal Abscess, Pneumonia, MDS Admit Date/Time: 07/09/24 20:16 Admit Provider: Kian Stacy Attending Provider: Kian Stacy Primary Care Provider: Rafiq El og Hospital Course Hospital Course: Patient initially presented with signs and symptoms consistent with sepsis secondary to gluteal abscess that was drained in the emergency department. He was on Vanco and cefepime with significant improvement of his white blood cell count and his overall symptoms. Patient also has a history of mild dysplastic syndrome and hemoglobin went below threshold for his usual transfusion, therefore he received 1 unit of packed red blood cells on 07/10/2024 with an improvement of his hemoglobin back up to 8.9. Given that patient had significant overall improvement it was determined that he was stable for discharge and will be sent home with home health services and an additional 1 week of doxycycline. Home Meds and New Rx's Prescriptions: New doxycycline hyclate 100 mg capsule 100 mg PO BID Qty: 14 0RF Continued ferrous sulfate [iron] 325 mg (65 mg iron) tablet 325 mg PO .every other Patient Comments: patient takes every other day sucralfate 1 gram Tablet 1 g PO AC & HS Qty: 120 0RF metoprolol succinate 100 mg tablet extended release 24 hr 150 mg PO DAILY Qty: 30 0RF pantoprazole 40 mg tablet,delayed release (DR/EC) 40 mg PO BID Qty: 180 0RF Discharge Instructions Activity:: Activity as Tolerated Equipment/Supplies:: No Equipment Needed Diet:: As Tolerated Discharge Orders Discharge Orders: Discharge Order (Routine); Ordered 07/11/24 Ordered By: Jt French DS: Summary Time Spent with Patient providing and/or coordinating discharge services: Greater than 30 minutes Status at Discharge Functional status at discharge: independent ambulation Overall status at discharge: patient is back to baseline Mental Status: mental status grossly normal Speech and Movement: speech and movement normal Mood: congruent mood Affect: normal affect Quality:SDOH Health Related Social Needs: Health related social needs details denied problems Exam Narrative Exam Narrative: Fatigued, hard of hearing older gentleman fidgeting, sitting up on the edge of the bed, awake, alert, appears to be oriented to person only, heart regular rate rhythm, lungs clear to auscultation bilaterally, abdomen soft, nontender, nondistended Psych Mental Status: mental status grossly normal Speech and Movement: speech and movement normal Mood: congruent mood Affect: normal affect DS: Data Vitals/I&O Vitals and I&O: Vital Signs Temperature 97.9 F 07/11/24 07:50 Temperature Source Temporal Artery Scan 07/11/24 07:50 Pulse 116 H 07/11/24 07:50 Pulse 109 H 07/09/24 19:01 Respiratory Rate 16 07/11/24 07:50 Respiratory Effort Accessory Muscle Use 07/09/24 22:37 Respiratory Depth Normal 07/09/24 22:37 Respiratory Pattern Tachypnea 07/09/24 22:37 Blood Pressure 124/88 07/11/24 07:50 Blood Pressure Mean 100 07/11/24 07:50 Blood Pressure Position Supine 07/09/24 16:03 Pulse Oximetry 97 07/11/24 07:50 Oxygen Delivery Method Room Air 07/11/24 07:50 Oxygen Flow Rate 0 07/11/24 07:50 Pain Level 0 07/11/24 10:38 Comment RN was present 07/11/24 07:50 Intake & Output 07/10/24 07/11/24 07/11/24 17:59 05:59 17:59 Intake Total 970 / 970 671 / 1641 1100 / 1100 Output Total 200 / 200 Balance 770 / 770 671 / 1441 1100 / 1100 Weight 179 lb 7.3 oz Intake: IV 110 / 110 300 / 410 1100 / 1100 Oral 360 / 360 Blood Product 500 / 500 371 / 871 Rbc Leuko Reduced Unit 500 / 500 371 / 871 [id number] Output: Urine 200 / 200 Other: Urine Color Dark Marcie Yellow Dark Marcie Brown Urine Appearance Clear Clear Urine Odor Normal Normal Comment voided x 2 overnight into the toilet with the assist of his daughter who remains at the bedside Stool Size Moderate Moderate Stool Characteristics Formed Formed Data Completed and Pending Labs on day of discharge: Labs from last 24 hours 07/11/24 06:11: WBC 7.27, RBC 3.04 L, Hgb 8.9 L, Hct 27.7 L, MCV 91, MCH 29.3, MCHC 32.1, RDW 16.4 H, Plt Count 95 L, MPV 11.1 H, PT 13.3 H, INR 1.3 H, Sodium 145, Potassium 3.3 L, Chloride 111 H, Carbon Dioxide 23.2, Anion Gap 10.8, BUN 14, Creatinine 1.0, Est GFR (CKD-EPI 2020) 73.76, Glucose 111 H, Calcium 8.3 L, Magnesium 2.0, Total Bilirubin 1.7 H, AST 27, ALT 12 L, Alkaline Phosphatase 82, Total Protein 5.9 L, Albumin 2.1 L, Random Vancomycin 10.6 07/10/24 21:35: Hgb 9.2 L, Hct 29.9 L 07/09/24 16:15: ABO/Rh B Positive, Antibody Screen NEGATIVE, Crossmatch See Detail Preliminary micro results at discharge 07/09/24 18:25 Blood Blood Culture - Preliminary NO GROWTH 24 HOURS 07/09/24 18:17 Blood Blood Culture - Preliminary NO GROWTH 24 HOURS PFSH All Active Problems (Updated 07/11/24 @ 10:58 by Jt French MD) Impaired instrumental activities of daily living (Acute) Cognitive and behavioral changes (Acute) Abscess (Acute) Pleural effusion (Acute) Encephalopathy (Acute) Hypomagnesemia (Acute) Abscess and cellulitis of gluteal region (Acute) Sepsis (Acute) Dehydration (Acute) Pleural effusion (Acute) Pneumonia (Acute) Palliative care patient (Acute) Recurrent gastrointestinal hemorrhage (Acute) Pneumothorax, iatrogenic (Acute) Pleural effusion (Chronic) Atrial fibrillation (Chronic) Chronic anticoagulation (Chronic) Myelodysplastic syndrome (Chronic) Anemia (Chronic) Encounter for blood transfusion (Acute) Anemia (Chronic) H/O mechanical aortic valve replacement (Chronic) Diverticulosis of colon without diverticulitis (Chronic) Upper GI bleed (Acute) 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 ear (Acute) Sensorineural hearing loss (SNHL) of right ear with restricted hearing of left ear (Acute) Sensorineural hearing loss of combined sites, bilateral (Acute 08/03/16) Medical History Elevated troponin level not due to acute coronary syndrome CKD (chronic kidney disease) stage 3, GFR 30-59 ml/min DNR (do not resuscitate) Not sure about intubation, +treat, +transfer, +abx, +IV fluids Advanced care planning/counseling discussion Palliative care encounter Atrial flutter Prosthetic cardiac valve vegetation Intracranial hemorrhage Discharge planning issues diverticulosis adenoma colon polyp Prosthetic Aortic Valve Overweight Hearing loss bilat Surgical History History of thoracentesis (~02/2024) H/O prosthetic aortic valve replacement redo of aortic valve hernia/hydrocele repair Appendectomy Aortic valve replaced Social History Smoking/Tobacco Use Status: Current-Occasional Smoking risk assessment performed?: Yes Alcohol Intake: current Alcohol Intake frequency: holidays/special occasions only Alcohol type: wine Drug use: Never Substance use type: does not use Housing: house Do you feel safe at home: Yes Do you feel safe in your relationship?: Yes Time Spent with Patient Time Spent with Patient: <45 minutes Time was spent: preparing to see the patient(eg.review tests), obtaining and/or reviewing separately otained hiistory, ordering medications,tests, procedures, referring, communicating with other health career placement specialist, indepentently interpreting results, counseling the patient and care coordination
--- NOTE | 2024-07-11 11:00 | PDOC.HHF2F_ITS ---
Home Health Referral Home Health Orders Clinical synopsis of why skilled professionals are needed: MDS, frequent blood transfusions, dementia, gluteal abscess Registered Nurse: Check all that apply Assess wound for signs and symptoms of infection, instruct on wound care and/or provide skilled wound care consisting of: gluteal abscess with wound care needd Encounter Date and Reason: I certify that a FTF encounter for this patient was performed on July 11, 2024 and that such encounter was related to the primary reason the patient requires home health services. The encounter was conducted in the following manner: * By me as the certifying physician, BUSINESS DEVELOPMENT OFFICER, PA or * By an inpatient physician, BUSINESS DEVELOPMENT OFFICER or PA during an inpatient stay who communicated findings to me, Certification And Authentication I certify that I composed the above information based on my clinical judgment relating to this patient's medical condition and, if applicable, clinical findings communicated to me by the NPP or inpatient physician who performed the FTF encounter. Name of Provider that will be monitoring home health services: Rafiq El
--- NOTE | 2024-07-11 12:01 | PDOC.CMDIS ---
Date of service: 07/11/24 Time of Service: 12:01 LACE Index Scoring Tool Questions: Length of Stay (in days): 2 Was the patient admitted via the E.D.?: Yes Comorbidities: Cerebrovascular Disease, Dementia and Liver or Renal Disease E.D. Visits: 4 Answers: Total Score: 14 Risk of Readmission: High Risk Care Management Discharge Plan Reason for Hospitalization: pneumonia Discharge Plan: Umesh will be discharged home with new home health services for RN. He will follow up with his PCP and plan of care and transport with family. Patient/Family Education Needs: Review discharge instructions, limitations, follow up and discuss Ask Me Three Services Needed at Discharge: Home Health Care Services SDOH Health Related Social Needs: Health related social needs details denied problems
== END 2024-07-11 11:37 | disposition home health service (06) | DRG 871 ==
LOC: ER 20:17 → MS 22:12
PROVIDERS: Admitting Provider Family Medicine; Emergency Provider Emergency Medicine; PCP Family Medicine; Responsible Provider Family Medicine; Visit Provider Family Medicine
DX: A41.9 Sepsis, unspecified organism (principal); G93.41 Metabolic encephalopathy; J18.9 Pneumonia, unspecified organism; L02.31 Cutaneous abscess of buttock; L03.317 Cellulitis of buttock; J91.8 Pleural effusion in other conditions classified elsewhere; I48.92 Unspecified atrial flutter; E86.0 Dehydration; E83.42 Hypomagnesemia; D46.9 Myelodysplastic syndrome, unspecified; I48.0 Paroxysmal atrial fibrillation; N18.31 Chronic kidney disease, stage 3a; Z66 Do not resuscitate; D50.0 Iron deficiency anemia secondary to blood loss (chronic); Z95.2 Presence of prosthetic heart valve; K57.30 Diverticulosis of large intestine without perforation or abscess without bleeding; H90.3 Sensorineural hearing loss, bilateral; Z86.73 Personal history of transient ischemic attack (TIA), and cerebral infarction without residual deficits; I50.9 Heart failure, unspecified; F03.90 Unspecified dementia, unspecified severity, without behavioral disturbance, psychotic disturbance, mood disturbance, and anxiety
CPT/HCPCS: 00123; 10061; 36415; 36416; 80053; 80307; 82805; 82962; 84145; 85027; 86850; 86900; 86901; 86920; 87040; 93005; 96361; 96365; 96366; 96367; 96375; 96376; 99285; 71045; 72193; 80202; 80320; 81003; 81015; 82140; 83605; 83735; 83880; 84439; 84443; 84484; 85014; 85018; 85025; 85610; 93010; 99223; 99233; 99239; J0692; J1630; J2004; J3370; J3372; J3475; J3490; P9016

== ENCOUNTER 2024-07-23 14:25 | Outpatient (REF) | payer MEDICARE, SELFPAY ==
[2024-07-23 14:52] LABS: Bilirubin Negative (Negative); Blood Negative (Negative); Clarity Clear (Clear); Glucose Negative (Negative); Ketones Negative (Negative); Leukocyte Esterase Negative (Negative); Nitrite Negative (Negative); Urobilinogen >=8.0 mg/dL (Up to 0.2)
== END 2024-07-23 14:26 | disposition home or self-care (01) ==
LOC: NCHCN 14:25
PROVIDERS: PCP Family Medicine; Visit Provider Family Medicine
DX: A41.9 Sepsis, unspecified organism (principal)
CPT/HCPCS: 81003; 87086

== ENCOUNTER 2024-08-11 00:43 | Outpatient (RCR) | payer MEDICARE, SELFPAY ==
[2024-07-14] MEDS: Normal Saline Flush 5 ML SYR IVP (07:18)
[2024-07-14 07:47] LABS: ALT 14 U/L (16-63); AST 28 U/L (15-37); Albumin 2.5 g/dL (3.4-5.0); Alkaline Phosphatase 109 U/L (46-116); Anion Gap 8.1 mmol/L (3-11); BUN 15 mg/dL (7-18); Bilirubin, Total 1.4 mg/dL (0.2-1.0); CO2 25.9 mmol/L (21.0-32.0); CREATININE 1.3 mg/dL (0.70-1.30); Calcium 9.3 mg/dL (8.5-10.1); Chloride 110 mmol/L (98-107); Estimated GFR 53.84 (mL/min/1.73m2); Glucose 133 mg/dL (74-106); Potassium 3.8 mmol/L (3.5-5.1); Sodium 144 mmol/L (136-145); Total Protein 6.9 g/dL (6.4-8.2)
[2024-07-14 08:15] LABS: HCT 30.6 % (40.0-50.0); HGB 9.6 g/dL (13.5-17.5); MCH 29.2 pg (27.0-33.0); MCHC 31.4 % (32.0-36.0); MCV 93 fL (80-95); MPV 10.9 fL (8.0-11.0); Platelet Count 102 10^3/uL (130-400); RBC 3.29 10^6/uL (4.36-5.78); RDW 17.3 % (11.8-14.1); RDW-SD 57.5 fL; WBC 4.08 10^3/uL (4.4-10.8)
[2024-07-14 08:17] LABS: Absolute Lymphocyte Count 0.53 10^3/uL (1.2-3.4); Absolute Monocyte Count 0.04 10^3/uL (0.1-0.8); Absolute Neutrophil Count 3.39 10^3/uL (1.2-6.7); Atypical Lymphocytes % 1 %; Bands % 0 %; Metamyelocytes % 2; Myelocytes % 1; Other Cells % 0; Promyelocytes % 0
[2024-07-14 08:18] LABS: Anisocytosis 1+; Diff Comment Manual Differential; Poikilocytes 2+; Polychromasia Present
[2024-07-14] MEDS: Normal Saline 1,000 ML 330 ML IV (08:29)
[2024-07-18 07:40] LABS: Abs Immature Grans 0.08 10^3/uL (0.0-0.06); HCT 30.6 % (40.0-50.0); MCH 28.7 pg (27.0-33.0); MCHC 29.4 % (32.0-36.0); MCV 98 fL (80-95); MPV 9.6 fL (8.0-11.0); RBC 3.14 10^6/uL (4.36-5.78); RDW 18.3 % (11.8-14.1); RDW-SD 62.8 fL; WBC 2.91 10^3/uL (4.4-10.8)
[2024-07-18 08:02] LABS: Absolute Lymphocyte Count 0.55 10^3/uL (1.2-3.4); Absolute Monocyte Count 0.12 10^3/uL (0.1-0.8); Absolute Neutrophil Count 2.15 10^3/uL (1.2-6.7); Atypical Lymphocytes % 2 %; Metamyelocytes % 2; Myelocytes % 1
[2024-07-18 08:03] LABS: Anisocytosis 2+; Diff Comment Manual Differential; Polychromasia Present
[2024-07-18 08:04] LABS: Platelet Count 94 10^3/uL (130-400)
[2024-07-18 08:05] LABS: ALT 19 U/L (16-63); AST 32 U/L (15-37); Albumin 2.7 g/dL (3.4-5.0); Alkaline Phosphatase 102 U/L (46-116); Anion Gap 5.9 mmol/L (3-11); BUN 19 mg/dL (7-18); Bilirubin, Total 1.9 mg/dL (0.2-1.0); CO2 28.1 mmol/L (21.0-32.0); CREATININE 1.2 mg/dL (0.70-1.30); Calcium 9.2 mg/dL (8.5-10.1); Chloride 107 mmol/L (98-107); Estimated GFR 59.26 (mL/min/1.73m2); Glucose 107 mg/dL (74-106); Potassium 3.8 mmol/L (3.5-5.1); Sodium 141 mmol/L (136-145); Total Protein 7.1 g/dL (6.4-8.2)
[2024-07-18] MEDS: Normal Saline Flush 5 ML SYR IVP (08:33)
[2024-07-21] MEDS: Normal Saline Flush 5 ML SYR IVP (07:26)
[2024-07-21 07:45] LABS: Abs Immature Grans 0.04 10^3/uL (0.0-0.06); Absolute Basophil Count 0.01 10^3/uL (0.0-0.2); Absolute Lymphocyte Count 0.39 10^3/uL (1.2-3.4); Absolute Monocyte Count 0.12 10^3/uL (0.1-0.8); Basophils % 0.5 %; HCT 32.2 % (40.0-50.0); HGB 9.5 g/dL (13.5-17.5); Immature Grans % 1.9 %; Lymphocytes % 18.9 %; MCH 27.9 pg (27.0-33.0); MCHC 29.5 % (32.0-36.0); MCV 94 fL (80-95); MPV 10.2 fL (8.0-11.0); Monocytes % 5.8 %; Neutrophils % 72.9 %; Nucleated RBC 2.9 % (0.0-0.3); RBC 3.41 10^6/uL (4.36-5.78); RDW 17.3 % (11.8-14.1); RDW-SD 58.4 fL; WBC 2.06 10^3/uL (4.4-10.8)
[2024-07-21 08:00] LABS: ALT 13 U/L (16-63); AST 29 U/L (15-37); Albumin 2.7 g/dL (3.4-5.0); Alkaline Phosphatase 92 U/L (46-116); Anion Gap 6.6 mmol/L (3-11); BUN 17 mg/dL (7-18); Bilirubin, Total 2.1 mg/dL (0.2-1.0); CO2 28.4 mmol/L (21.0-32.0); CREATININE 1.1 mg/dL (0.70-1.30); Calcium 8.9 mg/dL (8.5-10.1); Chloride 104 mmol/L (98-107); Estimated GFR 65.79 (mL/min/1.73m2); Glucose 119 mg/dL (74-106); Potassium 3.4 mmol/L (3.5-5.1); Sodium 139 mmol/L (136-145)
[2024-07-21 08:03] LABS: Diff Comment PLT Morph Reviewed; Platelet Count 88 10^3/uL (130-400); RBC Morphology Normal
[2024-07-21] MEDS: Darbepoetin 300 MCG SYR SC (08:41)
[2024-07-25] VITALS (10 sets, daily range): BP systolic 115–141; BP diastolic 67–85; PULSE 76–104; RESP 18–20; TEMP 35.8–36.6; O2SAT 94–99
[2024-07-25] MEDS: Normal Saline Flush 10 ML SYR IVP (07:51)
[2024-07-25 08:03] LABS: Abs Immature Grans 0.03 10^3/uL (0.0-0.06); Absolute Lymphocyte Count 0.73 10^3/uL (1.2-3.4); Absolute Monocyte Count 0.13 10^3/uL (0.1-0.8); Absolute Neutrophil Count 1.15 10^3/uL (1.2-6.7); HCT 23.6 % (40.0-50.0); Immature Grans % 1.5 %; Lymphocytes % 35.8 %; MCH 27.9 pg (27.0-33.0); MCHC 28.8 % (32.0-36.0); MCV 97 fL (80-95); MPV 10.6 fL (8.0-11.0); Monocytes % 6.4 %; Neutrophils % 56.3 %; RBC 2.44 10^6/uL (4.36-5.78); RDW 17.7 % (11.8-14.1); RDW-SD 60.8 fL; WBC 2.04 10^3/uL (4.4-10.8)
[2024-07-25 08:18] LABS: Diff Comment Diff Reviewed; Platelet Count 96 10^3/uL (130-400)
[2024-07-25 08:19] LABS: ALT 13 U/L (16-63); AST 25 U/L (15-37); Albumin 2.8 g/dL (3.4-5.0); Alkaline Phosphatase 92 U/L (46-116); Anion Gap 6.6 mmol/L (3-11); BUN 33 mg/dL (7-18); Bilirubin, Total 1.6 mg/dL (0.2-1.0); CO2 27.4 mmol/L (21.0-32.0); CREATININE 1.2 mg/dL (0.70-1.30); Calcium 9.2 mg/dL (8.5-10.1); Chloride 109 mmol/L (98-107); Estimated GFR 59.26 (mL/min/1.73m2); Glucose 138 mg/dL (74-106); Hypochromasia 2+; Potassium 3.8 mmol/L (3.5-5.1); Sodium 143 mmol/L (136-145)
[2024-07-25 08:20] LABS: Poikilocytes 1+; Polychromasia Present
[2024-07-25 11:28] LABS: HGB 6.8 g/dL (13.5-17.5)
[2024-07-28 07:29] LABS: Abs Immature Grans 0.03 10^3/uL (0.0-0.06); Absolute Monocyte Count 0.17 10^3/uL (0.1-0.8); HCT 25.3 % (40.0-50.0); HGB 7.5 g/dL (13.5-17.5); MCH 28.6 pg (27.0-33.0); MCHC 29.6 % (32.0-36.0); MCV 97 fL (80-95); MPV 10.7 fL (8.0-11.0); Platelet Count 96 10^3/uL (130-400); RBC 2.62 10^6/uL (4.36-5.78); RDW 18.8 % (11.8-14.1); RDW-SD 60.3 fL
[2024-07-28 07:51] LABS: ALT 15 U/L (16-63); AST 28 U/L (15-37); Albumin 2.7 g/dL (3.4-5.0); Alkaline Phosphatase 83 U/L (46-116); Anion Gap 8.5 mmol/L (3-11); BUN 33 mg/dL (7-18); Bilirubin, Total 2.1 mg/dL (0.2-1.0); CO2 26.5 mmol/L (21.0-32.0); CREATININE 1.1 mg/dL (0.70-1.30); Chloride 111 mmol/L (98-107); Estimated GFR 65.79 (mL/min/1.73m2); Glucose 126 mg/dL (74-106); Potassium 3.5 mmol/L (3.5-5.1); Sodium 146 mmol/L (136-145); Total Protein 6.6 g/dL (6.4-8.2)
[2024-07-28 07:59] LABS: Absolute Eosinophil Count 0.02 10^3/uL (0.0-0.7); Absolute Neutrophil Count 1.11 10^3/uL (1.2-6.7)
[2024-07-28 08:00] LABS: Absolute Basophil Count 0.02 10^3/uL (0.0-0.2); Diff Comment Manual Differential; Hypochromasia 2+; Polychromasia Present
[2024-07-28] MEDS: Normal Saline Flush 10 ML SYR IVP (08:02)
[2024-07-28 08:10] LABS: WBC 1.92 10^3/uL (4.4-10.8)
[2024-07-28 08:42] VITALS: BP 128/77; PULSE 78; RESP 18; TEMP 36.4; O2SAT 95
[2024-07-28 09:15] VITALS: BP 134/74; PULSE 76; RESP 18; TEMP 36.4; O2SAT 98
[2024-07-28 09:45] VITALS: BP 141/68; PULSE 80; RESP 16; TEMP 36.3; O2SAT 99
[2024-07-28 10:27] VITALS: BP 135/88; PULSE 105; RESP 16; TEMP 36.3; O2SAT 98
[2024-07-28 11:01] VITALS: BP 133/78; PULSE 98; RESP 16; TEMP 36.3; O2SAT 98
[2024-08-01] VITALS (9 sets, daily range): BP systolic 108–133; BP diastolic 62–85; PULSE 71–103; RESP 20; TEMP 36.2–37.4; O2SAT 95–100
[2024-08-01 08:47] LABS: Abs Immature Grans 0.02 10^3/uL (0.0-0.06); HCT 23.2 % (40.0-50.0); MCH 29.1 pg (27.0-33.0); MCHC 29.7 % (32.0-36.0); MCV 98 fL (80-95); MPV 10.3 fL (8.0-11.0); RBC 2.37 10^6/uL (4.36-5.78); RDW 18.9 % (11.8-14.1); RDW-SD 62.5 fL
[2024-08-01 09:12] LABS: ALT 14 U/L (16-63); AST 24 U/L (15-37); Albumin 2.7 g/dL (3.4-5.0); Alkaline Phosphatase 98 U/L (46-116); Anion Gap 8.2 mmol/L (3-11); BUN 35 mg/dL (7-18); CO2 26.8 mmol/L (21.0-32.0); CREATININE 1.1 mg/dL (0.70-1.30); Calcium 9.1 mg/dL (8.5-10.1); Chloride 112 mmol/L (98-107); Estimated GFR 65.79 (mL/min/1.73m2); Glucose 115 mg/dL (74-106); Potassium 3.7 mmol/L (3.5-5.1); Sodium 147 mmol/L (136-145); Total Protein 6.6 g/dL (6.4-8.2)
[2024-08-01 09:21] LABS: Absolute Basophil Count 0.02 10^3/uL (0.0-0.2); Absolute Eosinophil Count 0.04 10^3/uL (0.0-0.7); Absolute Monocyte Count 0.23 10^3/uL (0.1-0.8); Absolute Neutrophil Count 1.04 10^3/uL (1.2-6.7); Atypical Lymphocytes % 1 %; Diff Comment Manual Differential; Hypochromasia 2+; Platelet Count 103 10^3/uL (130-400)
[2024-08-01 09:30] LABS: WBC 1.93 10^3/uL (4.4-10.8)
[2024-08-01 09:31] LABS: HGB 6.9 g/dL (13.5-17.5)
--- NOTE | 2024-08-01 14:31 | NUR.NOTE ---
Nursing Note: PT INTERACTION/FAMILY 08/01/24, PT NEEDED TO VOID THIS NURSE ASSISTED TABITHA HOBSON RN WITH PT TO BATHROOM. THIS NURSE WAS ABLE TO LAY EYES ON THE GLUTEAL ABSCESS. THE ABSCESS IS ON THE LEFT BUTTOCK NEAR THE ANUS, UNCOVERED. BOTH INNER GLUTEAL FOLDS HAVE SEVERE MACERATION. THIS NURSE APPLIED A MEPILEX DRESSING TO THE ABSCESS AND EDUCATED THE DAUGHTER HAROON ON THE IMPORTANCE OF HAVING HOME HEALTH NURSING COME IN AND ASSESS THE WOUND AND DRESS THE WOUND. PT HAD PREVIOUSLY REFUSED AND FAMILY SAID ITS OKAY. THIS NURSE ALSO HAD CONVERSATION WITH DAUGHTER HAROON ABOUT DAILY TYLENOL WITH AM PILLS FOR SOME PAIN RELIEF. DAUGHTER HAD EXPRESSED CONCERN OVER TALKING ABOUT AND DYING IN FRONT OF PT. THIS NURSE EXPRESSED TO DAUGHTER THAT SHE WILL ADVOCATE FOR THE PT AND SPEAK PLAINLY TO THE PT, BECAUSE THE PT HAS A RIGHT TO KNOW.
[2024-08-04] VITALS (10 sets, daily range): BP systolic 100–123; BP diastolic 60–81; PULSE 74–83; RESP 18–20; TEMP 35.4–36.7; O2SAT 95–100
[2024-08-04 07:40] LABS: HCT 23.4 % (40.0-50.0); MCH 27.8 pg (27.0-33.0); MCHC 29.1 % (32.0-36.0); MCV 96 fL (80-95); MPV 10.6 fL (8.0-11.0); Platelet Count 102 10^3/uL (130-400); RBC 2.45 10^6/uL (4.36-5.78); RDW 17.8 % (11.8-14.1); RDW-SD 59.8 fL; WBC 2.29 10^3/uL (4.4-10.8)
[2024-08-04 07:55] LABS: Absolute Monocyte Count 0.11 10^3/uL (0.1-0.8); Absolute Neutrophil Count 1.35 10^3/uL (1.2-6.7); Anisocytosis 1+; Diff Comment Manual Differential; Hypochromasia 1+; Myelocytes % 1; Polychromasia Present
[2024-08-04 07:56] LABS: ALT 14 U/L (16-63); AST 22 U/L (15-37); Albumin 2.5 g/dL (3.4-5.0); Alkaline Phosphatase 91 U/L (46-116); Anion Gap 7.5 mmol/L (3-11); BUN 32 mg/dL (7-18); Bilirubin, Total 1.5 mg/dL (0.2-1.0); CO2 26.5 mmol/L (21.0-32.0); Calcium 8.7 mg/dL (8.5-10.1); Chloride 112 mmol/L (98-107); Estimated GFR 73.76 (mL/min/1.73m2); Glucose 115 mg/dL (74-106); Potassium 3.7 mmol/L (3.5-5.1); Sodium 146 mmol/L (136-145); Total Protein 6.1 g/dL (6.4-8.2)
[2024-08-04 08:07] LABS: HGB 6.8 g/dL (13.5-17.5)
[2024-08-04] MEDS: Darbepoetin 300 MCG SYR SC (09:46)
[2024-08-04] MEDS: Normal Saline Flush 10 ML SYR IVP (09:46)
[2024-08-08] VITALS (12 sets, daily range): BP systolic 112–130; BP diastolic 67–77; PULSE 66–82; RESP 16–20; TEMP 36.3–36.8; O2SAT 93–100
[2024-08-08 07:43] LABS: Abs Immature Grans 0.02 10^3/uL (0.0-0.06); HCT 21.7 % (40.0-50.0); MCH 28.8 pg (27.0-33.0); MCHC 29.5 % (32.0-36.0); MCV 98 fL (80-95); MPV 10.5 fL (8.0-11.0); RBC 2.22 10^6/uL (4.36-5.78); RDW 17.8 % (11.8-14.1); RDW-SD 59.8 fL
[2024-08-08 08:07] LABS: ALT 11 U/L (16-63); AST 22 U/L (15-37); Albumin 2.5 g/dL (3.4-5.0); Alkaline Phosphatase 78 U/L (46-116); Anion Gap 6.2 mmol/L (3-11); BUN 42 mg/dL (7-18); Bilirubin, Total 1.8 mg/dL (0.2-1.0); CO2 26.8 mmol/L (21.0-32.0); CREATININE 1.1 mg/dL (0.70-1.30); Calcium 9.1 mg/dL (8.5-10.1); Chloride 112 mmol/L (98-107); Estimated GFR 65.79 (mL/min/1.73m2); Glucose 125 mg/dL (74-106); Potassium 3.9 mmol/L (3.5-5.1); Sodium 145 mmol/L (136-145)
[2024-08-08 08:11] LABS: Absolute Basophil Count 0.03 10^3/uL (0.0-0.2); Absolute Lymphocyte Count 0.67 10^3/uL (1.2-3.4); Absolute Monocyte Count 0.08 10^3/uL (0.1-0.8); Absolute Neutrophil Count 0.85 10^3/uL (1.2-6.7); Platelet Count 147 10^3/uL (130-400)
[2024-08-08 08:12] LABS: Diff Comment Manual Differential; Hypochromasia 2+; Polychromasia Present
[2024-08-08 08:19] LABS: HGB 6.4 g/dL (13.5-17.5); WBC 1.63 10^3/uL (4.4-10.8)
[2024-08-08] MEDS: Normal Saline Flush 5 ML SYR IVP (13:46)
[2024-08-11] VITALS (10 sets, daily range): BP systolic 90–118; BP diastolic 57–77; PULSE 67–93; RESP 18–20; TEMP 36.1–36.7; O2SAT 95–99
[2024-08-11] MEDS: Normal Saline Flush 10 ML SYR IVP (07:32)
[2024-08-11 07:39] LABS: HCT 25.1 % (40.0-50.0); HGB 7.5 g/dL (13.5-17.5); MCH 28.2 pg (27.0-33.0); MCHC 29.9 % (32.0-36.0); MCV 94 fL (80-95); MPV 10.6 fL (8.0-11.0); Platelet Count 140 10^3/uL (130-400); RBC 2.66 10^6/uL (4.36-5.78); RDW 19.8 % (11.8-14.1); RDW-SD 66.8 fL; WBC 2.17 10^3/uL (4.4-10.8)
[2024-08-11 07:58] LABS: ALT 12 U/L (16-63); AST 21 U/L (15-37); Albumin 2.4 g/dL (3.4-5.0); Alkaline Phosphatase 80 U/L (46-116); Anion Gap 6.5 mmol/L (3-11); BUN 33 mg/dL (7-18); CO2 27.5 mmol/L (21.0-32.0); Calcium 8.6 mg/dL (8.5-10.1); Chloride 111 mmol/L (98-107); Estimated GFR 73.76 (mL/min/1.73m2); Glucose 128 mg/dL (74-106); Potassium 3.4 mmol/L (3.5-5.1); Sodium 145 mmol/L (136-145); Total Protein 5.9 g/dL (6.4-8.2)
[2024-08-11 08:01] LABS: Absolute Eosinophil Count 0.02 10^3/uL (0.0-0.7); Absolute Lymphocyte Count 0.82 10^3/uL (1.2-3.4); Absolute Neutrophil Count 1.28 10^3/uL (1.2-6.7); Anisocytosis 1+; Diff Comment Manual Differential; Other Cells % 2
[2024-08-11 08:02] LABS: Polychromasia Present
== END 2024-08-12 23:59 | disposition home or self-care (01) ==
LOC: INF 00:43
PROVIDERS: Internal Medicine Hematology & Oncology; PCP Family Medicine; Visit Provider Family Medicine
DX: K92.2 Gastrointestinal hemorrhage, unspecified (principal); D46.9 Myelodysplastic syndrome, unspecified
CPT/HCPCS: 36415; 36430; 80053; 86850; 86900; 86901; 86920; 96365; 96366; 96372; 85025; J0881; P9016

== ENCOUNTER 2024-08-22 11:33 | Observation (INO) | payer MEDICARE, SELFPAY ==
[2024-08-22] VITALS (49 sets, daily range): BP systolic 91–128; BP diastolic 46–77; PULSE 74–114; RESP 14–25; TEMP 36.3–37.1; O2SAT 83–98
--- NOTE | 2024-08-22 11:48 | W.ED.GENAD ---
Discharge Plan Disposition Patient Disposition: Admit to [facility] Condition: Stable Discharge Details Chief Complaint: GenMedical Clinical Impression: Sepsis, Anemia, Mesothelioma Primary Care Provider: Rafiq El ED Provider: Gucci Jimenez Home Meds and New Rx's Prescriptions: No Action benzonatate 100 mg capsule 100 - 200 mg PO TID PRN (Reason: cough) Qty: 30 4RF escitalopram oxalate 10 mg tablet 10 mg PO DAILY risperidone 1 mg tablet 1 mg PO DIRECTED Rx Instructions: x1 tab QAM X2 tabs QHS acetaminophen 650 mg tablet extended release 650 mg PO DIRECTED cannabidoil (CBD) 1 inch topical 5X/DAY PRN tamsulosin 0.4 mg capsule 0.4 mg PO QHS ferrous sulfate [iron] 325 mg (65 mg iron) tablet 325 mg PO .every other Patient Comments: patient takes every other day sucralfate 1 gram Tablet 1 g PO AC & HS Qty: 120 0RF Patient Comments: family stated it 'changed his personality'. metoprolol succinate 100 mg tablet extended release 24 hr 150 mg PO DAILY Qty: 30 0RF pantoprazole 40 mg tablet,delayed release (DR/EC) 40 mg PO BID Qty: 180 0RF HPI General Date/Time Provider Initiated Documentation: 08/22/24 11:40. HPI Narrative: 83 year-old male presents to ED today by POV with a chief complaint of concern by family at home for possible UTI, urinary urgency at home, had outpatient labs that while at infusion center showing WBC count 27 with onset acutely, recent labs were normal. Patient has MDS and gets regular blood transfusions, recently initiated palliative care visits. Quality described as fatigued, no radiation to chest pain, fever, abdominal pain, vomiting, endorses possibly a loyd stool yesterday. Severity is described as mild. Palliating factors include nothing specific attempted. Provoking factors include nothing specific. Events leading up to the incident/Associated Symptoms: Patient is DNR/trial of intubation, was in the [facility]. Patient not anticoagulated. Related Data Home Medications ?Medication ?Instructions ?Recorded ?Confirmed ferrous sulfate 325 mg (65 mg 325 mg PO .every other 11/22/23 08/22/24 iron) tablet (iron) metoprolol succinate 100 mg 150 mg (1.5 x 100 mg) PO DAILY #30 12/01/23 08/22/24 tablet,extended release 24 hr tabs pantoprazole 40 mg tablet,delayed 40 mg PO BID #180 tabs 12/01/23 08/22/24 release sucralfate 1 gram tablet 1 g PO AC & HS #120 tabs 12/01/23 08/22/24 benzonatate 100 mg capsule 100 - 200 mg (1 - 2 x 100 mg) PO 07/13/24 08/22/24 TID PRN cough #30 caps risperidone 1 mg tablet 1 mg PO DIRECTED 07/28/24 08/22/24 acetaminophen 650 mg 650 mg PO DIRECTED 07/31/24 08/22/24 tablet,extended release cannabidoil (CBD) 1 inch topical 5X/DAY PRN 07/31/24 08/22/24 tamsulosin 0.4 mg capsule 0.4 mg PO QHS 07/31/24 08/22/24 escitalopram oxalate 10 mg tablet 10 mg PO DAILY 08/21/24 08/22/24 Previous Rx's ?Medication ?Instructions ?Recorded metoprolol succinate 100 mg 150 mg (1.5 x 100 mg) PO DAILY #30 12/01/23 tablet,extended release 24 hr tabs pantoprazole 40 mg tablet,delayed 40 mg PO BID #180 tabs 12/01/23 release sucralfate 1 gram tablet 1 g PO AC & HS #120 tabs 12/01/23 benzonatate 100 mg capsule 100 - 200 mg (1 - 2 x 100 mg) PO 07/13/24 TID PRN cough #30 caps Allergies Allergy/AdvReac Type Severity Reaction Status Date / Time ampicillin Allergy Skin Rash Verified 07/13/24 11:09 ceftriaxone Allergy Skin Rash Verified 07/13/24 11:09 PEACH SKINS AdvReac Other (See Uncoded 07/09/24 16:10 Comment) General Stated Complaint: GenMedical WILBERT: 3 Review of Systems All systems reviewed & are unremarkable except as noted in HPI and below Exam Narrative Exam Narrative: GENERAL APPEARANCE: Well-nourished, toxic, awake and alert-hard of hearing, atraumatic, moderate acute distress. SKIN: Warm, pink, dry, intact, without rashes/lesions/ulcerations. HEAD: Normocephalic, atraumatic, normal hair distribution for gender/age. EYES: Normal conjunctiva, no exudates on lids/lashes. ENT: Nares patent, no circumoral cyanosis, no facial swelling NECK: Supple, trachea midline, painless cervical ROM. LUNGS/CHEST: Lungs -coarse adventitious lung sounds diffusely in the upper heath, diminished in left base, labored respirations, normal A/P diameter, symmetrical expansion, no chest wall deformity HEART (CV/PV): Irregular rate and rhythm with murmur, no peripheral edema, +JVD. ABDOMEN: Soft, non-distended, no guarding, mild epigastric tenderness. MSK: Normal ROM, no swelling/deformity to bilateral UEs or LEs, moving all extremities without weakness, no cyanosis, spine midline without tenderness, normal curvature. NEURO: Mental Status AAOx4 - alert to person, place, time, events No facial droop, no forehead involvement. Motor: No focal weakness - strength 5/5 in bilateral UEs and LEs, proximal and distal, symmetric. Sensory: sensation intact to light touch globally. Gait NT PSYCH: euthymic, cooperative, pleasant, appropriate speech Course Vital Signs Vital signs: Vital Signs Temperature 36.7 C 08/22/24 11:39 Pulse 75 08/22/24 11:39 Respiratory Rate 20 08/22/24 11:39 Blood Pressure 107/46 L 08/22/24 11:39 Pulse Oximetry 96 08/22/24 11:39 Temperature 36.7 C 08/22/24 11:39 Pulse 75 08/22/24 11:39 Respiratory Rate 20 08/22/24 11:39 Blood Pressure 107/46 L 08/22/24 11:39 Blood Pressure Position Sitting 08/22/24 11:39 Pulse Oximetry 96 08/22/24 11:39 Oxygen Delivery Method Room Air 08/22/24 11:39 Oxygen Flow Rate 0 08/22/24 11:39 Medical Decision Making This dictation utilizes [id number] dictation software and may contain unedited grammatical errors. 83 year-old male presents to ED today by POV with a chief complaint of concern by family at home for possible UTI, urinary urgency at home, had outpatient labs that while at infusion center showing WBC count 27 with onset acutely, recent labs were normal. Patient has MDS and gets regular blood transfusions, recently initiated palliative care visits. Quality described as fatigued, no radiation to chest pain, fever, abdominal pain, vomiting, endorses possibly a loyd stool yesterday. Severity is described as mild. Palliating factors include nothing specific attempted. Provoking factors include nothing specific. Events leading up to the incident/Associated Symptoms: Patient is DNR/trial of intubation, was in the [place]. Patients' medical history: History of intracranial hemorrhage with recent discontinuation of blood thinners, atrial fibrillation, hard of hearing, history of chronic pleural effusions, recurrent GI bleeding. Family and social history: lives at home with his , great-granddaughter lives across the street, stayed active throughout his life. Pertinent exam findings / vital signs include mild epigastric tenderness diffuse adventitious lung sounds with diminishment in left base, systolic musical murmur, neuro intact, afebrile, tachypneic and hypertensive on arrival, was 30 breaths/min/inf. center when he was sent here Differential / pathologies of concern include pneumonia, sepsis pleural effusions, heart failure, ACS. Diagnostic studies of: - Reviewed prior CBC CMP, added lactate, serial troponins, BNP, CRP, lipase, procalcitonin, blood cultures, repeated H&H after second unit, EKG, CTA Chest PE, CT ABD/Pelvis w Contrast. - WBC count at infusion center 27, hemoglobin 5.8 absolute neutrophil count 18.3 -CMP was fairly unremarkable with only mild elevation of BUN to 39 -CRP mildly elevated at 0.94 - BNP 3201 - Troponin stable at 27 - UA pending at time of admission - CTA chest PE study shows profound pleural effusions worse than his prior imaging with loculations and pleural plaques consistent with mesothelioma, previously undiagnosed, no acute bleeding seen in the abdomen or perforated viscus or other emergent surgical findings as below - EKG shows atrial fibrillation, I do not see any presence of P waves throughout, normal axis, good R wave progression, no ST elevation or reciprocal depression, question lead placement in V4, has some nonspecific T wave abnormalities in anterior leads Interventions of: - Patient was in process of receiving 2 units of PRBCs on arrival, 250 of saline also, I did add on 750 mg IV Levaquin due to his ampicillin and ceftriaxone allergies, he does state that is causing some mild itching. -Consulted with hospitalist for admission, patient was tachypneic on arrival to the hospital infusion center today was hypotensive 107/46 and has a white count of 27 with left shift ED Course/Assessment/Plan: 83-year-old male presents with deranged WBC white count 27 at [facility], has been receiving units of blood weekly for myelodysplastic syndrome. He has recently started seeing palliative care but has been not amenable to hospice or comfort measures only. His directive was made a long time ago and shows trial of intubation but DNR. 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 His lungs are so pathologic he cannot fully differentiate between pathology per discussion with radiologist, he sees no extravasation within the abdomen, I discussed with hospitalist team who accepted for admission. UA pending Disposition of Sepsis, anemia, mesothelioma. Patient verbalized understanding of the plan and return to ED criteria and engaged in shared decision making. Medical Records Medical records reviewed: Yes I reviewed the patient's medical records. Imaging Data Radiologic Study: Attestation: I personally reviewed and interpreted this imaging study as follows: Imaging: CT Scan Radiologist's impression: EXAM: CT CHEST PE ABD PELVIS W CLINICAL HISTORY: hx GI bleed, crackles, profound anemia, a fib. TECHNIQUE: Imaging Protocol: Axial CT angiography was performed with multi-slice acquisition and multi-planar and/or 3D reconstructions. CONTRAST MATERIAL: Intravenous: Omnipaque 350 Contrast volume:100 ml Oral: None COMPARISON: CT CT CHEST WO from 03/10/2024 FINDINGS: CHEST: PULMONARY ARTERIES: There are no obvious intra-arterial filling defects to suggest the presence of acute pulmonary emboli. LUNGS: There bilateral pleural effusions. Left pleural effusion is loculated in similar to previous. The right pleural effusion does not appear loculated but is significantly larger than previous images of 03/10/2024. Multiple bilateral calcified pleural plaques are again evident. Mild infiltrates in both lungs again noted. MEDIASTINUM: There is no prominent hilar nor mediastinal adenopathy. Visualized thyroid unremarkable. CARDIAC: Sternotomy wires. No megaly..Diameter of the ascending thoracic aorta is again noted to be enlarged, measuring 4.6 cm. OSSEOUS: No significant osseous lesions.No fractures.. ABDOMEN: There is generalized anasarca. Mesentery is hazy but there is no actual fluid ascites. Also no focal fluid collections in the abdomen-pelvis. LIVER: There are no focal hepatic lesions nor dilatation of intrahepatic ducts. GALLBLADDER/BILIARY: Respiratory motion artifact but no obvious calcified gallstones. No pericholecystic fluid. No gallbladder distension. CBD is not dilated. PANCREAS: No evidence of pancreatic mass nor dilatation of the pancreatic duct. SPLEEN: Spleen size normal. Tiny splenic granulomas again noted. No concerning splenic lesions. Splenic and portal veins are patent. ADRENALS: There are no significant adrenal masses. KIDNEYS:No cysts evident. No calculi nor hydronephrosis. No solid renal masses. ABDOMINAL AORTA: There is mild fusiform aneurysmal dilatation of the infrarenal abdominal aorta. Maximum diameter is 2.5 cm. Iliac arteries are calcified and atherosclerotic. There is fusiform aneurysmal dilatation of the distal left common iliac artery which exhibits a diameter of 1.6 cm. No significant stenosis. External iliac arteries are not aneurysmal. LYMPH NODES: There is no retroperitoneal or para-aortic adenopathy. ABDOMINAL WALL/GI: No evidence of significant anterior abdominal wall hernia. No bowel obstruction. PELVIS: LYMPH NODES: There is no intrapelvic nor inguinal adenopathy. GI: No evidence of appendicitis.No evidence of sigmoid diverticulitis. URINARY BLADDER: There are bilateral Hutch diverticula in urinary bladder. Largest is on the right and measures 3.8 x 2.5 cm. Smaller diverticulum on the left side measures 2.5 x 2.5 cm. No obvious mass in the bladder nor radiopaque calculi in the bladder lumen. REPRODUCTIVE: Prostate mildly enlarged. Seminal vesicles unremarkable. OSSEOUS: No significant osseous lesions. IMPRESSION: 1. No obvious acute pulmonary emboli. 2. Again noted are pleural effusions which are of substantial size and loculated on the left side and probably non loculated on the right side but increased in size from previous. 3. Prominent bilateral calcified pleural plaques again noted some mild infiltrate in both lung heath. Findings may be related to asbestos exposure. Cannot exclude mesothelioma. 4. Aneurysm of the ascending thoracic aorta. No obvious rupture. No obvious dissection 5. Cardiomegaly. There is some reflux of IV contrast into the intrahepatic IVC and slight shift of the interventricular septum. Probable element of right heart failure. 6. Multiple findings in the abdomen as detailed above but without obvious acute intra-abdominal findings. Report called by myself to ER provider 08/22/2024 at 2:10 p.m. Lab Data Lab results reviewed: Yes I reviewed the patient's lab results. Labs: 08/22/24 14:39 Blood Blood Culture - Pending 08/22/24 12:30 Blood Blood Culture - Pending Laboratory Tests Range/Units 08/22/24 08/22/24 08/22/24 12:30 13:35 14:39 Hgb (13.5-17.5) g/dL 7.4 L Hct (40.0-50.0) % 23.6 L VBG Lactate (<or=2.0) mmol/L 1.8 Troponin I (<or=76) ng/L 27 27 C-Reactive Protein (<or=0.5) mg/dL 0.94 H NT-Pro-B Natriuret Pep (<300) pg/mL 3201 H Lipase (<78) U/L 140 H Procalcitonin ng/mL 0.10 Quality:SDOH Health Related Social Needs: Health related social needs details denied problems PFSH All Active Problems (Updated 08/22/24 @ 16:04 by XI Gonzalez) Mesothelioma (Acute) Anemia (Chronic) Sepsis (Acute) Severe anemia (Acute) On deep vein thrombosis (DVT) prophylaxis (Acute) CKD (chronic kidney disease) stage 3, GFR 30-59 ml/min (Acute) Impaired instrumental activities of daily living (Acute) Cognitive and behavioral changes (Acute) Pleural effusion (Acute) Recurrent gastrointestinal hemorrhage (Acute) Pneumothorax, iatrogenic (Acute) Atrial fibrillation (Chronic) Myelodysplastic syndrome (Chronic) Anemia (Chronic) Encounter for blood transfusion (Acute) Anemia (Chronic) H/O mechanical aortic valve replacement (Chronic) Diverticulosis of colon without diverticulitis (Chronic) Upper GI bleed (Acute) 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 ear (Acute) Sensorineural hearing loss (SNHL) of right ear with restricted hearing of left ear (Acute) Sensorineural hearing loss of combined sites, bilateral (Acute 08/03/16) Medical History (Updated 08/22/24 @ 16:04 by XI Gonzalez) Palliative care patient Elevated troponin level not due to acute coronary syndrome DNR (do not resuscitate) Not sure about intubation, +treat, +transfer, +abx, +IV fluids Advanced care planning/counseling discussion Palliative care encounter Atrial flutter Prosthetic cardiac valve vegetation Intracranial hemorrhage Discharge planning issues diverticulosis adenoma colon polyp Prosthetic Aortic Valve Overweight Hearing loss bilat Surgical History History of thoracentesis (~02/2024) H/O prosthetic aortic valve replacement redo of aortic valve hernia/hydrocele repair Appendectomy Aortic valve replaced Social History Smoking/Tobacco Use Status: Current-Occasional Smoking risk assessment performed?: Yes Alcohol Intake: current Alcohol Intake frequency: holidays/special occasions only Alcohol type: wine Drug use: Never Substance use type: does not use Housing: house Do you feel safe at home: Yes Do you feel safe in your relationship?: Yes
--- NOTE | 2024-08-22 12:00 | RT.EKG_ITS ---
APPROVED REPORT Exam: Resting ECG Reason for Exam: baseline/screening Patient Location: E HR:76 bpm ECG Measurements Heart Rate 76 AXIS NE 250 P 0 QRSd 96 QRS -8 QT 400 T -11 QTc 451 Conclusion Sinus rhythm...normal P axis, V-rate 60- 99 Prolonged NE interval...NE >220, V-rate 50- 90 Nonspecific T abnormalities, anterior leads...T <-0.10mV, V2-V4
--- NOTE | 2024-08-22 12:00 | DI.CT_ITS ---
Exam(s) CT CHEST PE ABD PELVIS W EXAM: CT CHEST PE ABD PELVIS W CLINICAL HISTORY: hx GI bleed, crackles, profound anemia, a fib. TECHNIQUE: Imaging Protocol: Axial CT angiography was performed with multi-slice acquisition and m ulti-planar and/or 3D reconstructions. CONTRAST MATERIAL: Intravenous: Omnipaque 350 Contrast volume:100 ml Oral: None COMPARISON: CT CT CHEST WO from 03/10/2024 FINDINGS: CHEST: PULMONARY ARTERIES: There are no obvious intra-arterial filling defects to suggest the presence of ac missael pulmonary emboli. LUNGS: There bilateral pleural effusions. Left pleural effusion is loculated in similar to previous. The right pleural effusion does not appear loculated but is significantly larger than previous imag es of 03/10/2024. Multiple bilateral calcified pleural plaques are again evident. Mild infiltrates in both lungs again noted. MEDIASTINUM: There is no prominent hilar nor mediastinal adenopathy. Visualized thyroid unremarkable. CARDIAC: Sternotomy wires. No megaly..Diameter of the ascending thoracic aorta is again noted to be enlarged, measuring 4.6 cm. OSSEOUS: No significant osseous lesions.No fractures.. ABDOMEN: There is generalized anasarca. Mesentery is hazy but there is no actual fluid ascites. Also no foca l fluid collections in the abdomen-pelvis. LIVER: There are no focal hepatic lesions nor dilatation of intrahepatic ducts. GALLBLADDER/BILIARY: Respiratory motion artifact but no obvious calcified gallstones. No pericholecy stic fluid. No gallbladder distension. CBD is not dilated. PANCREAS: No evidence of pancreatic mass nor dilatation of the pancreatic duct. SPLEEN: Spleen size normal. Tiny splenic granulomas again noted. No concerning splenic lesions. Sp lenic and portal veins are patent. ADRENALS: There are no significant adrenal masses. KIDNEYS:No cysts evident. No calculi nor hydronephrosis. No solid renal masses. ABDOMINAL AORTA: There is mild fusiform aneurysmal dilatation of the infrarenal abdominal aorta. Max imum diameter is 2.5 cm. Iliac arteries are calcified and atherosclerotic. There is fusiform aneury smal dilatation of the distal left common iliac artery which exhibits a diameter of 1.6 cm. No signi ficant stenosis. External iliac arteries are not aneurysmal. LYMPH NODES: There is no retroperitoneal or para-aortic adenopathy. ABDOMINAL WALL/GI: No evidence of significant anterior abdominal wall hernia. No bowel obstruction. PELVIS: LYMPH NODES: There is no intrapelvic nor inguinal adenopathy. GI: No evidence of appendicitis.No evidence of sigmoid diverticulitis. URINARY BLADDER: There are bilateral Hutch diverticula in urinary bladder. Largest is on the right a nd measures 3.8 x 2.5 cm. Smaller diverticulum on the left side measures 2.5 x 2.5 cm. No obvious m ass in the bladder nor radiopaque calculi in the bladder lumen. REPRODUCTIVE: Prostate mildly enlarged. Seminal vesicles unremarkable. OSSEOUS: No significant osseous lesions. IMPRESSION: 1. No obvious acute pulmonary emboli. 2. Again noted are pleural effusions which are of substantial size and loculated on the left side and probably non loculated on the right side but increased in size from previous. 3. Prominent bilateral calcified pleural plaques again noted some mild infiltrate in both lung heath . Findings may be related to asbestos exposure. Cannot exclude mesothelioma. 4. Aneurysm of the ascending thoracic aorta. No obvious rupture. No obvious dissection 5. Cardiomegaly. There is some reflux of IV contrast into the intrahepatic IVC and slight shift of t he interventricular septum. Probable element of right heart failure. 6. Multiple findings in the abdomen as detailed above but without obvious acute intra-abdominal find ings. Report called by myself to ER provider 08/22/2024 at 2:10 p.m. RADIATION DOSE DELIVERED: 453.61mGy.cm Total DLP DATA REPOSITORY: All CT scans at this facility are submitted to the National Radiology Data Registry (NRDR) Dose Index Registry (DIR) with the [employer] ([employer]). RADIATION OPTIMIZATION: All CT scans at this facility use at least one of these dose optimization te chniques: automated exposure control; mA and/or kV adjustment per patient size (includes targeted exa ms where dose is matched to clinical indication); or iterative reconstruction.
[2024-08-22 12:42] LABS: Lactate 1.8 mmol/L (<or=2.0)
[2024-08-22] MEDS: Normal Saline - Diluent 50 ML VIAL IJ (13:00)
[2024-08-22] MEDS: Omnipaque 350 MG/ML 100 ML BTL IJ (13:04)
[2024-08-22 13:07] LABS: C-Reactive Protein 0.94 mg/dL (<or=0.5); Lipase 140 U/L (<78); NT-proBNP 3201 pg/mL (<300); Troponin I 27 ng/L (<or=76)
[2024-08-22 14:05] LABS: Troponin I 27 ng/L (<or=76)
[2024-08-22 14:52] LABS: HCT 23.6 % (40.0-50.0); HGB 7.4 g/dL (13.5-17.5)
--- NOTE | 2024-08-22 15:16 | HPE_ITS ---
Date of service: 08/22/24 Time of Service: 15:16 Assessment and Plan Assessment and plan (1) Severe anemia: Status: Acute Assessment and plan: In the setting of know myelodysplastic syndrome with frequent blood trasfusion H&H 5.8 & 20.2 now 7.4 & 23.6 s/p 2 units of PRBC's transfusion H&H at 20:00 and in AM (2) Pneumonia: Status: Resolved Assessment and plan: As per imaging - not meeting sepsis criteria No hypoxia Continue levofloxacin initiated in the ED Blood Cx pending BMP in AM (3) Hypoxic respiratory failure: Status: Acute Assessment and plan: In the setting of point 1 and 2 Was on RA at home and hypoxic 83% in the ED On 1.5 litter of O2 for sat 94% onthe floor Wean o2 as tolerated (4) CKD (chronic kidney disease) stage 3, GFR 30-59 ml/min: Status: Acute Assessment and plan: Stable will continue to monitor (5) Cognitive and behavioral changes: Status: Acute Assessment and plan: Continue home medicine regimen (6) Atrial fibrillation: Status: Chronic Assessment and plan: Continue home medicine regimen Not anticoagulant d/t intracranial bleeding (7) Myelodysplastic syndrome: Status: Chronic Assessment and plan: Replete H&H and continue outpatient management Platelets 120 (8) On deep vein thrombosis (DVT) prophylaxis: Status: Acute Assessment and plan: Silverio Discussed with Dr. French History of Present Illness Narrative: This 83-year-old gentleman with past medical history including A-fib not on anticoagulation, myelodysplastic disorder, palliative care patient, frequent blood transfusions presented to the ED from the infusion center for evaluation of H&H at 5.8 & 20.2. The patient was tachypneic , non-tachycardic and non- hypoxic and hemodynamically stable otherwise on presentation. CT scan was positive for bilateral pleural effusion, loculated on the left and larger than previously and not loculated on the right side. 2 units of PRBC's transfused in the ED with subsequent H&H at 7.4 & 23.6. Chemistry and UA were w/o any actionable items. Blood Cx pending. IV Levofloxacin initiated in the ED. The patient was admitted to the medical surgical floor for pneumonia s/o sepsis, severe anemia. The patient is a DNR and as per discussion with ED provider the patient would benefit of a palliative care discuss the likelihood of extubation if he was to be intubated. Reported dizziness, increased WOB. Denied chest pain, fever, chills, night sweats, cough, hemoptyisi, nausea, vomiting, hematochezia, melena or dysuria . Spouse is the POA and s/p discussion with patient, daughter, son and spouse, the patient answered clearly that he would want the to make decision regarding accepting treatment for him in the hospital. The decision was made to make the patient a DNI. Review of Systems All systems reviewed & are unremarkable except as noted in HPI and below PFSH All Active Problems (Updated 08/22/24 @ 17:58 by Roxana Burrell APRN) Hypoxic respiratory failure (Acute) Mesothelioma (Acute) Anemia (Chronic) Sepsis (Acute) Severe anemia (Acute) On deep vein thrombosis (DVT) prophylaxis (Acute) CKD (chronic kidney disease) stage 3, GFR 30-59 ml/min (Acute) Impaired instrumental activities of daily living (Acute) Cognitive and behavioral changes (Acute) Pleural effusion (Acute) Recurrent gastrointestinal hemorrhage (Acute) Pneumothorax, iatrogenic (Acute) Atrial fibrillation (Chronic) Myelodysplastic syndrome (Chronic) Anemia (Chronic) Encounter for blood transfusion (Acute) Anemia (Chronic) H/O mechanical aortic valve replacement (Chronic) Diverticulosis of colon without diverticulitis (Chronic) Upper GI bleed (Acute) 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 ear (Acute) Sensorineural hearing loss (SNHL) of right ear with restricted hearing of left ear (Acute) Sensorineural hearing loss of combined sites, bilateral (Acute 08/03/16) Medical History (Updated 08/22/24 @ 17:58 by Roxana Burrell APRN) Palliative care patient Elevated troponin level not due to acute coronary syndrome DNR (do not resuscitate) Not sure about intubation, +treat, +transfer, +abx, +IV fluids Advanced care planning/counseling discussion Palliative care encounter Atrial flutter Prosthetic cardiac valve vegetation Intracranial hemorrhage Discharge planning issues diverticulosis adenoma colon polyp Prosthetic Aortic Valve Overweight Hearing loss bilat Surgical History History of thoracentesis (~02/2024) H/O prosthetic aortic valve replacement redo of aortic valve hernia/hydrocele repair Appendectomy Aortic valve replaced Social History Smoking/Tobacco Use Status: Current-Occasional Smoking risk assessment performed?: Yes Alcohol Intake: current Alcohol Intake frequency: holidays/special occasions only Alcohol type: wine Drug use: Never Substance use type: does not use Housing: house Do you feel safe at home: Yes Do you feel safe in your relationship?: Yes Meds Allergies and Home Medications Allergies Allergy/AdvReac Type Severity Reaction Status Date / Time ampicillin Allergy Skin Rash Verified 07/13/24 11:09 ceftriaxone Allergy Skin Rash Verified 07/13/24 11:09 PEACH SKINS AdvReac Other (See Uncoded 07/09/24 16:10 Comment) Home Medications ?Medication ?Instructions ?Recorded ?Confirmed ?Type ferrous sulfate 325 mg (65 mg 325 mg PO .every other 11/22/23 08/22/24 History iron) tablet (iron) metoprolol succinate 100 mg 150 mg (1.5 x 100 mg) PO DAILY #30 12/01/23 08/22/24 Rx tablet,extended release 24 hr tabs pantoprazole 40 mg tablet,delayed 40 mg PO BID #180 tabs 12/01/23 08/22/24 Rx release sucralfate 1 gram tablet 1 g PO AC & HS #120 tabs 12/01/23 08/22/24 Rx benzonatate 100 mg capsule 100 - 200 mg (1 - 2 x 100 mg) PO 07/13/24 08/22/24 Rx TID PRN cough #30 caps risperidone 1 mg tablet 1 mg PO DIRECTED 07/28/24 08/22/24 History acetaminophen 650 mg 650 mg PO DIRECTED 07/31/24 08/22/24 History tablet,extended release cannabidoil (CBD) 1 inch topical 5X/DAY PRN 07/31/24 08/22/24 History tamsulosin 0.4 mg capsule 0.4 mg PO QHS 07/31/24 08/22/24 History escitalopram oxalate 10 mg tablet 10 mg PO DAILY 08/21/24 08/22/24 History Exam Narrative Exam Narrative: Fatigued, hard of hearing older gentleman , calm , laying in bed but in no acute distress on 1.5 l of oxygen but open mouth breathing , awake, alert, appears to be oriented to person, place, heart regular rate rhythm, lungs coarse to auscultation to LLLL, with decreased right base , abdomen soft, nontender, nondistended, moves all 4 ext Results Labs 08/22/24 20:00 Labs: Laboratory Results - last 24 hr 08/22/24 08/22/24 08/22/24 12:30 13:35 14:39 Hgb 7.4 L Hct 23.6 L VBG Lactate 1.8 Troponin I 27 27 C-Reactive Protein 0.94 H NT-Pro-B Natriuret Pep 3201 H Lipase 140 H Procalcitonin 0.10 Last Vital Signs Temp 36.4 C L 08/22/24 13:31 Pulse 76 08/22/24 13:46 Resp 18 08/22/24 13:46 BP 118/67 08/22/24 13:46 Pulse Ox 96 08/22/24 13:40 Time Spent Time spent with Patient: >75 minutes Time was spent: preparing to see the patient(eg.review tests), obtaining and/or reviewing separately otained hiistory, ordering medications,tests, procedures, referring, communicating with other health direct care worker, indepentently interpreting results, counseling the patient and care coordination
[2024-08-22] MEDS: levoFLOXacin 750 MG/150 ML BAG 100 MG IVPB (15:33)
[2024-08-22 16:18] LABS: Bilirubin Negative (Negative); Blood Negative (Negative); Clarity Clear (Clear); Glucose Negative (Negative); Ketones Negative (Negative); Leukocyte Esterase Negative (Negative); Nitrite Negative (Negative); Specific Gravity 1.015 (1.005-1.025); pH 5.5 (5-8)
--- NOTE | 2024-08-22 17:10 | W.PC.ACHO ---
Registration Status: Primary Language: Preferred Language: ED Information & Data Chief Complaint GenMedical 08/22/24 11:49 Triage Note Urgency at home, family 08/22/24 11:39 concerned about potential UTI. Increased white blood cell count to day. Notable reduction in oral intake over the past 72 hours. Medical / Surgical History (Last Updated 08/22/24 @ 10:59 by Jaclyn Luke RN) Palliative care patient Elevated troponin level not due to acute coronary syndrome DNR (do not resuscitate) Advanced care planning/counseling discussion Palliative care encounter Atrial flutter Prosthetic cardiac valve vegetation Intracranial hemorrhage Discharge planning issues diverticulosis adenoma colon polyp Prosthetic Aortic Valve Overweight Hearing loss (Last Reviewed 07/21/24 @ 17:58 by Rosi Staton NP) History of thoracentesis (~02/2024) H/O prosthetic aortic valve replacement redo of aortic valve hernia/hydrocele repair Appendectomy Aortic valve replaced Most Recent Vital Signs Temperature 36.3 C L 08/22/24 16:29 Pulse 88 08/22/24 16:29 Pulse Rhythm Regular 08/22/24 16:29 Pulse 76 08/22/24 16:01 Respiratory Rate 18 08/22/24 16:29 Respiratory Effort Normal, Non-Labored 08/22/24 16:29 Respiratory Depth Normal 08/22/24 16:29 Respiratory Pattern Normal 08/22/24 16:29 Blood Pressure 94/77 L 08/22/24 16:29 Blood Pressure Mean 78 08/22/24 16:01 Blood Pressure Position Sitting 08/22/24 11:39 Pulse Oximetry 98 08/22/24 16:29 Oxygen Delivery Method Nasal Cannula 08/22/24 16:29 Oxygen Flow Rate 1.5 08/22/24 16:29 Pain Level 0 08/22/24 16:29 Comment pt appears to be uncomfortable 08/22/24 11:55 Comment 2.5L, transfusion end 08/22/24 13:31 Allergies ampicillin Allergy (Verified 07/13/24 11:09) Skin Rash ceftriaxone Allergy (Verified 07/13/24 11:09) Skin Rash PEACH SKINS Adverse Reaction (Uncoded 07/09/24 16:10) Other (See Comment) MAKES MOUTH PUCKER IV IV Catheter Type [Left Forearm Peripheral IV ] IV Catheter Type [Right Upper [place] Lock arm] IV Catheter Gauge [Left 18 Forearm] IV Catheter Gauge [Right Upper 22 arm] Diet Orders Category Date Time Status Heart Healthy Eating [DIET] Nutrition 08/22/24 Dinner Active Diagnostics 08/22/24 08/22/24 08/22/24 Range/Units 20:00 16:04 14:39 WBC Pending RBC Pending Hgb Pending 7.4 L (13.5-17.5) g/dL Hct Pending 23.6 L (40.0-50.0) % MCV Pending MCH Pending MCHC Pending RDW Pending Plt Count Pending MPV Pending VBG Lactate (<or=2.0) mmol/L Troponin I (<or=76) ng/L C-Reactive Protein (<or=0.5) mg/dL NT-Pro-B Natriuret Pep (<300) pg/mL Lipase (<78) U/L Procalcitonin ng/mL Urine Color Yellow (Yellow) Urine Clarity Clear (Clear) Urine pH 5.5 (5-8) Ur Specific [place] 1.015 (1.005-1.025) Urine Protein Trace (Neg-Trace) mg/dL Urine Ketones Negative (Negative) mg/dL Urine Blood Negative (Negative) Urine Nitrite Negative (Negative) Urine Bilirubin Negative (Negative) Urine Urobilinogen 1.0 H (Up to 0.2) mg/dL Ur Leukocyte Esterase Negative (Negative) Urine Glucose Negative (Negative) mg/dL 08/22/24 08/22/24 Range/Units 13:35 12:30 WBC RBC Hgb (13.5-17.5) g/dL Hct (40.0-50.0) % MCV MCH MCHC RDW Plt Count MPV VBG Lactate 1.8 (<or=2.0) mmol/L Troponin I 27 27 (<or=76) ng/L C-Reactive Protein 0.94 H (<or=0.5) mg/dL NT-Pro-B Natriuret Pep 3201 H (<300) pg/mL Lipase 140 H (<78) U/L Procalcitonin 0.10 ng/mL Urine Color (Yellow) Urine Clarity (Clear) Urine pH (5-8) Ur Specific [place] (1.005-1.025) Urine Protein (Neg-Trace) mg/dL Urine Ketones (Negative) mg/dL Urine Blood (Negative) Urine Nitrite (Negative) Urine Bilirubin (Negative) Urine Urobilinogen (Up to 0.2) mg/dL Ur Leukocyte Esterase (Negative) Urine Glucose (Negative) mg/dL 08/22/24 14:39 Blood Culture - Pending Blood 08/22/24 12:30 Blood Culture - Pending Blood Intake and Output - 24 Hour Total 08/22/24 11:33 thru 08/22/24 16:29 Weight 75.841 kg Other: Urine Appearance Clear Falls Risk Assessment History of Falls Previous History 08/22/24 16:29 Contributing Factors Unstable 08/22/24 16:29 Ambulatory Aids Uses ambulatory device 08/22/24 16:29 Tubes/Lines W/no contributing factors 08/22/24 16:29 Gait Evaluation No gait disturbance 08/22/24 16:29 Cognition No cognitive impairment 08/22/24 16:29 Fall Total Score 43 08/22/24 16:29 Level of Risk Moderate Risk 08/22/24 16:29 Problems (Last Updated 08/22/24 @ 10:59 by Jaclyn Luke RN) Mesothelioma (Acute) Anemia (Chronic) Sepsis (Acute) Severe anemia (Acute) On deep vein thrombosis (DVT) prophylaxis (Acute) CKD (chronic kidney disease) stage 3, GFR 30-59 ml/min (Acute) Cognitive and behavioral changes (Acute) Atrial fibrillation (Chronic) Myelodysplastic syndrome (Chronic) v v v v v v v v v Sending and/or Receiving Nurses: Please use comment section below to note any information pertinent to the patient hand-off not included above. Information / Comments: Paged at [phone], report called for at 1600. Pt had 2 units of blood earlier today in infusion. 22 G right upper arm, 18 G left forearm. Report received from: Meera Mason, ED RN
[2024-08-22] MEDS: Sucralfate 1 GM TAB PO ×2 (18:02→22:15)
[2024-08-22] MEDS: Normal Saline Flush 10 ML SYR IVP (19:49)
[2024-08-22] MEDS: Pantoprazole 40 MG TABCR PO (19:50)
[2024-08-22] MEDS: Tamsulosin 0.4 MG CAPCR PO (19:50)
[2024-08-22 20:18] LABS: HCT 22.2 % (40.0-50.0); MCH 29.5 pg (27.0-33.0); MCHC 31.1 % (32.0-36.0); MCV 95 fL (80-95); RBC 2.34 10^6/uL (4.36-5.78); RDW 17.2 % (11.8-14.1); RDW-SD 55.2 fL
[2024-08-22 20:32] LABS: HGB 6.9 g/dL (13.5-17.5); WBC 26.81 10^3/uL (4.4-10.8)
[2024-08-22 20:33] LABS: Platelet Count 89 10^3/uL (130-400)
[2024-08-23 00:18] VITALS: BP 115/56; PULSE 77; RESP 20; TEMP 36.8; O2SAT 98
[2024-08-23] MEDS: Normal Saline 500 ML 100 ML IV (01:00)
[2024-08-23 01:18] VITALS: BP 105/60; PULSE 97; RESP 22; TEMP 37.1; O2SAT 98
[2024-08-23 03:07] VITALS: BP 113/72; PULSE 117; RESP 24; TEMP 36.8; O2SAT 95
[2024-08-23 06:31] LABS: HCT 25.8 % (40.0-50.0); HGB 8.2 g/dL (13.5-17.5); MCH 29.2 pg (27.0-33.0); MCHC 31.8 % (32.0-36.0); MCV 92 fL (80-95); MPV 10.8 fL (8.0-11.0); RBC 2.81 10^6/uL (4.36-5.78); RDW 16.8 % (11.8-14.1); RDW-SD 52.6 fL; WBC 24.82 10^3/uL (4.4-10.8)
[2024-08-23 06:58] LABS: BUN 34 mg/dL (7-18); CREATININE 0.8 mg/dL (0.70-1.30); Calcium 8.6 mg/dL (8.5-10.1); Chloride 109 mmol/L (98-107); Estimated GFR 86.73 (mL/min/1.73m2); Glucose 113 mg/dL (74-106); Potassium 3.7 mmol/L (3.5-5.1); Sodium 144 mmol/L (136-145)
[2024-08-23 07:37] LABS: Absolute Lymphocyte Count 6.45 10^3/uL (1.2-3.4); Absolute Neutrophil Count 15.39 10^3/uL (1.2-6.7)
[2024-08-23 07:38] VITALS: BP 102/69; PULSE 88; RESP 16; TEMP 36.5; O2SAT 95
[2024-08-23 07:38] LABS: Diff Comment Manual Differential; Other Cells % 12; Platelet Count 85 10^3/uL (130-400); RBC Morphology Normal
[2024-08-23] MEDS: Metoprolol CR 50 MG TABCR 150 MG PO (07:42)
[2024-08-23] MEDS: Sucralfate 1 GM TAB PO ×3 (07:42→15:56)
[2024-08-23] MEDS: Ferrous Sulfate 325 MG TAB PO (07:42)
[2024-08-23] MEDS: Normal Saline Flush 10 ML SYR IVP ×3 (07:43→15:57)
[2024-08-23] MEDS: Escitalopram 10 MG TAB PO (07:43)
[2024-08-23] MEDS: Pantoprazole 40 MG TABCR PO (07:43)
--- NOTE | 2024-08-23 09:00 | PDOC.CMIN ---
Date of service: 08/23/24 Time of Service: 09:00 Care Management Initial Assmt Initial Assessment Reason for Hospitalization: anemia and pneumonia Functional Status/Living Situation Patient Presentation: Abrahan was admitted with pneumonia and anemia. he was transfused with 3 units of blood and felt much better. he had a Palliative care consult today and a new COLST form was completed confirming his code status as DNR/DNI. He will be discharged home later today. Town of Residence: [place] Resides with: Spouse ( Jessy) Significant Other/Family: Local Natural Supports: family: , daughter, son Employment Status: Retired Instrumental Activities of Daily Living (ADLs): Requires support Medications Medication Management: No Issues/Barriers identified Physical Functioning/Mobility Assistive Device: cane Advance Directives Advance Directives: Do you have an Advance Directive: Y 10/04/20 08:56 AD On File at [facility]: Y 10/04/20 08:56 Date Asked 05/08/13 07/23/24 14:34 AD Date Reviewed 08/22/24 08/22/24 16:16 COLST On File at [facility] No 11/24/23 16:54 COLST Date Scanned Code Status Resuscitation Status DNR/DNI Insurance Coverage/Financial Issues Insurance: Medicare [facility] Care Team Visit Care Team Role Provider Type Roxana Burrell APRN MD [facility] STAFF PHYSICIAN Rafiq El MD Primary Care Provider NON-[facility] STAFF PHYSICIAN InPatient Jax [place] Other Providers OTHER [facility] [employer] Jt French MD Admit Provider [facility] STAFF PHYSICIAN Attending Provider Discharge Potential Discharge Needs: PCP F/U Appt Anticipated Barriers to Discharge: None Identified Patient/Family Education Needs: Review discharge instructions, discuss Ask Me Three Transportation: Private vehicle Plan: Anticipate Umesh will be discharged home, possibly with new home health services, when medically cleared. He will follow up with his community providers and plan of care and transport with family. CM will follow and continue to assess for discharge planning concerns. Social Determinants of Health Screening Social Determinants of health last assessed in clinic: 08/23/24 Will the Patient Participate in the Screening?: Yes Do you worry about having a steady place to live?: no Problems where you live: no known problems In the past 12 months, have you had to go without electric, gas, oil or water in your home?: no 1. Within the past 12 months, we worried whether our food would run out before we got money to buy more.: Never true 2. Within the past 12 months, the food we bought just didn't last and we didn't have money to get more.: Never true Has lack of transportation kept you from medical appointments or from doing things needed for daily living?: no Has anyone in your life made you feel unsafe or unsupported?: no How hard is it for you to pay for the very basics like food, housing, medical care, and heating? Would you say it is:: Not hard at all Do you want help finding or keeping work or a job?: I do not need or want help If for any reason you need help with day-to-day activities such as bathing, preparing meals, shopping, managing finances, etc., do you get the help you need?: I get all the help I need How often do you feel lonely or isolated from those around you?: Rarely Do you speak a language other than Pashto at home?: No Does the patient want assistance with any of the above?: No Health Related Social Needs Health related social needs: feeling lonely/isolated (Z60.8) Health related social needs details: Pt is demonstrating some confusion, reports he was independent at home. PFSH All Active Problems Hypoxic respiratory failure (Acute) Mesothelioma (Acute) Anemia (Chronic) Sepsis (Acute) Severe anemia (Acute) On deep vein thrombosis (DVT) prophylaxis (Acute) CKD (chronic kidney disease) stage 3, GFR 30-59 ml/min (Acute) Impaired instrumental activities of daily living (Acute) Cognitive and behavioral changes (Acute) Pleural effusion (Acute) Recurrent gastrointestinal hemorrhage (Acute) Pneumothorax, iatrogenic (Acute) Atrial fibrillation (Chronic) Myelodysplastic syndrome (Chronic) Anemia (Chronic) Encounter for blood transfusion (Acute) Anemia (Chronic) H/O mechanical aortic valve replacement (Chronic) Diverticulosis of colon without diverticulitis (Chronic) Upper GI bleed (Acute) 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 ear (Acute) Sensorineural hearing loss (SNHL) of right ear with restricted hearing of left ear (Acute) Sensorineural hearing loss of combined sites, bilateral (Acute 08/03/16) Medical History Palliative care patient Elevated troponin level not due to acute coronary syndrome DNR (do not resuscitate) Not sure about intubation, +treat, +transfer, +abx, +IV fluids Advanced care planning/counseling discussion Palliative care encounter Atrial flutter Prosthetic cardiac valve vegetation Intracranial hemorrhage Discharge planning issues diverticulosis adenoma colon polyp Prosthetic Aortic Valve Overweight Hearing loss bilat Surgical History History of thoracentesis (~02/2024) H/O prosthetic aortic valve replacement redo of aortic valve hernia/hydrocele repair Appendectomy Aortic valve replaced Social History Smoking/Tobacco Use Status: Current-Occasional Smoking risk assessment performed?: Yes Alcohol Intake: current Alcohol Intake frequency: holidays/special occasions only Alcohol type: wine Drug use: Never Substance use type: does not use Housing: house Do you feel safe at home: Yes Do you feel safe in your relationship?: Yes
--- NOTE | 2024-08-23 10:56 | NUR.NOTE ---
Nursing Note: Infusion called looking for the time that the infusion of blood was done yesterday during the patients visit because the nurse did not end it. I looked through the notes and was not able to determine what time that was finished. I told them that the nurse who cared for the patient was not here today and would not be back until Wednesday. I have reached out to the nurse to help figure out what time the infusion was completed.
--- NOTE | 2024-08-23 13:45 | PCNE_ITS ---
Date of service: 08/23/24 Time of Service: 11:40 History of Present Illness Narrative: Mr. Guathier is an 83 y/o M currently hospitalized at [facility] 2/2 suspected PNA; PMHx dx MDS, h/o AVR, CVA (2016), CHF, A fib, dementia; present today /[facility] Jessy, daughter Jenna, son Abrahan, and two grandchildren - family request family meeting outside of Abrahan's room Abrahan denies pain or hurt; he has no complaints today - family reports later he never will say yes to pain questions; receives apap 1000mg TID PRN, only thing he will agree to Abrahan reports not hungry, reduced appetite; he is not sure if he would want medication for violette stimulant - family reports considering olanzapine but opted not to d/t concerns w/interactions w/escitalopram, having good response w/that for MH benefits Family Meeting - preference today to complete COLST w/updated DNI portion. did give verbal in ED; do not want him intubated under any conditions; Abrahan has elected to have Jessy make his decisions for him - he continues to demonstrate a desire to continue engaging in transfusions. on / infusion days he does not need pursuading to present, he is almost always ready to go and is not showing any signs that he is not interested in these transfusions. they feel that at the moment he resists wanting to present they will honor that and transition care, likely to hospice. - historically, he has been extremely fearful of word hospice and is aware that if he doesn't get transfusions, he should be on hospice, bc he will . this is part of their perceived motivation that he has to continue transfusions - has been tolerating infusions well, though lately has had an increase in need for transfusions, going up to 2 units more consistently, when previously could skip occasionally or only require 1 unit; by Mo night he is feeling symptomatic w/more groaning/moaning discomfort, c/o throat/teeth burning, SOB though deny dyspnea; they would like to consider alternative options to get him through the 4 day stretch w/o transfusions - he is not great at maintaining oral hydration, they wonder if this is contributing to his declining status; they have tried all options in home to increase his fluid intake; they would like to consider IVF during transfusions bc he is already here and feel he would want to maintain hydration via alternative routes than by mouth - there was mention in ED note of mesothelioma not being ruled out, they would like to not worry him with this at time being - he does get worried when people talk about him behind his back, they want to make sure he isn't worried this is occurring now. - he continues to have joyous moments and when he wakes up he says ever day you wake up is a good day; they get a sense he wants to live and survive, and would not want to stop infusions at this time per infusion team: rapid decline noted in last few weeks, went from pretty stable to now requiring 2 units consistently for 2-3 wks; concern for refractory anemia, would need test ordered by MDS provider, Sanjeev; typically do not do IVF w/transfusions for obvious reason of diluting blood products, have previously done IVF before or after transfusion w/time interval, would need standing IVF order, typically by transfusion ordering provider, to date not interested in doing this for Abrahan d/t his labs not demonstrating dehydration, outside of one time, when she agreed to it; infusion has been communicating decline, refractory anemia concerns, IVF requests to MDS team Assessment and Plan Assessment and plan (1) Severe anemia: Status: Acute Assessment and plan: in setting of MDS; f/b DH Dr Pace - increased transfusion needs, more prominent over last 2-3wks, more consistently requiring 2 units each infusion, not tolerating 4 day interval between infusions - concern for refractory anemia, should be reviewed w/MDS team, f/u testing as appropriate (2) CKD (chronic kidney disease) stage 3, GFR 30-59 ml/min: Status: Acute (3) Impaired instrumental activities of daily living: Status: Acute Assessment and plan: and children providing full support in home (4) Cognitive and behavioral changes: Status: Acute Assessment and plan: dementia w/o dx - more periods of confusion, worse at end of day infusion team noted more confusion family resistant to medications for behavior patterns, concerns w/med interactions, renal involvement (5) Pleural effusion: Status: Acute Assessment and plan: continue IV levofloxacin (6) Myelodysplastic syndrome: Status: Chronic Assessment and plan: f/b Dr. Pace w/DH need for f/u to review - IVF for dehydration, parameters, clear outline w/family - reduced tolerance to transfusions: 4 day interval, increased amount needed - concerns for refractory anemia, would need to be tested for this family preference to continue to follow Abrahan's lead, as long as he is motivated to get up and go to transfusions, they will support this choice. (7) H/O mechanical aortic valve replacement: Status: Chronic (8) 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 ear: Status: Acute (9) Palliative care patient: Assessment and plan: PC to continue to follow, if still in hospital on Wednesday inpt f/u - plan for outpatient f/u to be scheduled, pending discharge plan previously f/b Rosi Staton and Natalee Cantu (10) Advanced care planning/counseling discussion: Assessment and plan: reviewed and completed COLST - updated to DNR/I, unsure on FT preferences, yes IVF and determin abx at time of infection, okay w/receiving them today reviewed MDS sxs, worsening sxs and interval changes, potential options for maintaining hydration; when to pivot to hospice style care, can use alternative word to honor his preferences - will share note to Dr. Pace's team for review; consider IVF standing order for if labs demonstrate dehydration, will need ongoing education and f/u; spent 30m w/ACP Review of Systems Narrative: as per HPI PFSH All Active Problems Hypoxic respiratory failure (Acute) Mesothelioma (Acute) Anemia (Chronic) Sepsis (Acute) Severe anemia (Acute) On deep vein thrombosis (DVT) prophylaxis (Acute) CKD (chronic kidney disease) stage 3, GFR 30-59 ml/min (Acute) Impaired instrumental activities of daily living (Acute) Cognitive and behavioral changes (Acute) Pleural effusion (Acute) Recurrent gastrointestinal hemorrhage (Acute) Pneumothorax, iatrogenic (Acute) Atrial fibrillation (Chronic) Myelodysplastic syndrome (Chronic) Anemia (Chronic) Encounter for blood transfusion (Acute) Anemia (Chronic) H/O mechanical aortic valve replacement (Chronic) Diverticulosis of colon without diverticulitis (Chronic) Upper GI bleed (Acute) 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 ear (Acute) Sensorineural hearing loss (SNHL) of right ear with restricted hearing of left ear (Acute) Sensorineural hearing loss of combined sites, bilateral (Acute 08/03/16) Medical History Palliative care patient Elevated troponin level not due to acute coronary syndrome DNR (do not resuscitate) Not sure about intubation, +treat, +transfer, +abx, +IV fluids Advanced care planning/counseling discussion Palliative care encounter Atrial flutter Prosthetic cardiac valve vegetation Intracranial hemorrhage Discharge planning issues diverticulosis adenoma colon polyp Prosthetic Aortic Valve Overweight Hearing loss bilat Surgical History History of thoracentesis (~02/2024) H/O prosthetic aortic valve replacement redo of aortic valve hernia/hydrocele repair Appendectomy Aortic valve replaced Social History Smoking/Tobacco Use Status: Current-Occasional Smoking risk assessment performed?: Yes Alcohol Intake: current Alcohol Intake frequency: holidays/special occasions only Alcohol type: wine Drug use: Never Substance use type: does not use Housing: house Do you feel safe at home: Yes Do you feel safe in your relationship?: Yes Exam Narrative Exam Narrative: General: older adult male, lying w/HOB elevated, family at bedside; lunch tray present HEENT: [place], normocephalic, atraumatic Resp: shallow, tachypnic periods, no acute distress, denies SOB; no accessory muscle use; no audible wheeze or cough Psych: cooperative to guarded, speech clear-garbled, impoverished and loose association thought process, affect indifferent; insight/judgement limited Results Last Vital Signs Temp 97.7 F 08/23/24 07:38 Pulse 88 08/23/24 07:38 Resp 16 08/23/24 07:38 BP 102/69 08/23/24 07:38 Pulse Ox 95 08/23/24 07:38 Labs 08/23/24 06:06 08/23/24 06:06 Labs: Laboratory Results - last 24 hr 08/22/24 08/22/24 08/22/24 13:35 14:39 16:04 WBC RBC Hgb 7.4 L Hct 23.6 L MCV MCH MCHC RDW Plt Count MPV Immature Gran % Neutrophils % Lymphocytes % Monocytes % Eosinophils % Basophils % Other Cells % Nucleated RBC % Absolute Neutrophils Absolute Lymphocytes Absolute Monocytes Absolute Eosinophils Absolute Basophils RBC Morphology Sodium Potassium Chloride Carbon Dioxide Anion Gap BUN Creatinine Est GFR (CKD-EPI 2020) Glucose Calcium Troponin I 27 Urine Color Yellow Urine Clarity Clear Urine pH 5.5 Ur Specific [place] 1.015 Urine Protein Trace Urine Ketones Negative Urine Blood Negative Urine Nitrite Negative Urine Bilirubin Negative Urine Urobilinogen 1.0 H Ur Leukocyte Esterase Negative Urine Glucose Negative ABO/Rh Antibody Screen Crossmatch 08/22/24 08/22/24 08/23/24 20:04 21:35 06:06 WBC 26.81 H* 24.82 H RBC 2.34 L 2.81 L Hgb 6.9 L* 8.2 L Hct 22.2 L 25.8 L MCV 95 92 MCH 29.5 29.2 MCHC 31.1 L D 31.8 L RDW 17.2 H 16.8 H Plt Count 89 L 85 L MPV 10.0 10.8 Immature Gran % 0.0 Neutrophils % 62.0 Lymphocytes % 26.0 Monocytes % 0.0 Eosinophils % 0.0 Basophils % 0.0 Other Cells % 12 Nucleated RBC % 2.0 H Absolute Neutrophils 15.39 H Absolute Lymphocytes 6.45 H Absolute Monocytes 0.00 L Absolute Eosinophils 0.00 Absolute Basophils 0.00 RBC Morphology Normal Sodium 144 Potassium 3.7 Chloride 109 H Carbon Dioxide 27.0 Anion Gap 8.0 BUN 34 H Creatinine 0.8 Est GFR (CKD-EPI 2020) 86.73 Glucose 113 H Calcium 8.6 Troponin I Urine Color Urine Clarity Urine pH Ur Specific [place] Urine Protein Urine Ketones Urine Blood Urine Nitrite Urine Bilirubin Urine Urobilinogen Ur Leukocyte Esterase Urine Glucose ABO/Rh B Positive Antibody Screen NEGATIVE Crossmatch See Detail Time Spent Time Spent with Patient Time Spent(min): 90
--- NOTE | 2024-08-23 14:07 | DSE_ITS ---
Date of service: 08/23/24 Time of Service: 14:07 DS: Diagnosis Discharge Diagnosis (1) Severe anemia: Status: Acute (2) Pneumonia: Status: Resolved (3) Hypoxic respiratory failure: Status: Acute (4) CKD (chronic kidney disease) stage 3, GFR 30-59 ml/min: Status: Acute (5) Cognitive and behavioral changes: Status: Acute (6) Atrial fibrillation: Status: Chronic (7) Myelodysplastic syndrome: Status: Chronic (8) On deep vein thrombosis (DVT) prophylaxis: Status: Acute Discharge Plan Disposition Patient Disposition: Home W/Home Health Services Condition: Improving Discharge Details Reason For Visit: severe anemia,pneumonia Admit Date/Time: 08/22/24 15:34 Admit Provider: Jt French Attending Provider: Jt French Primary Care Provider: Rafiq El Hospital Course Hospital Course: This 83-year-old gentleman with past medical history including A-fib not on anticoagulation, myelodysplastic disorder, palliative care patient, frequent blood transfusions presented to the ED from the infusion center for evaluation of H&H at 5.8 & 20.2. The patient was tachypneic , non-tachycardic and non- hypoxic and hemodynamically stable otherwise on presentation. CT scan was positive for bilateral pleural effusion, loculated on the left and larger than previously and not loculated on the right side. 2 units of PRBC's transfused in the ED with subsequent H&H at 7.4 & 23.6. Chemistry and UA were w/o any a ctionable items. The patient was admitted to the medical surgical floor for pneumonia s/o sepsis, severe anemia. Received one additional until of PRBC's for Hgb at 6.9. Blood Cultures were negative at 24 hours. Palliative care consult resulting in updated COLST form. The patient will be discharged home with resumption of home health. The patient is a febrile and hemodynamically stable w/o additional oxygen requirement H&H is stable at 8.2 & 25.8. Scripts for oral Levaquin and mucinex sent electronically sent. Follow-up with PCP within 7 days of discharged and continue follow up with outpatient infusion as per CUSTOMER SERVICE AND SALES CONSULTANT. Discussed with Dr. French Home Meds and New Rx's Prescriptions: New levofloxacin 750 mg tablet 750 mg PO DAILY Qty: 4 0RF guaifenesin [Mucinex] 600 mg tablet extended release 12hr 600 mg PO BID Qty: 10 0RF Continued benzonatate 100 mg capsule 100 - 200 mg PO TID PRN (Reason: cough) Qty: 30 4RF escitalopram oxalate 10 mg tablet 10 mg PO DAILY risperidone 1 mg tablet 1 mg PO DIRECTED Rx Instructions: x1 tab QAM X2 tabs QHS acetaminophen 650 mg tablet extended release 650 mg PO DIRECTED cannabidoil (CBD) 1 inch topical 5X/DAY PRN tamsulosin 0.4 mg capsule 0.4 mg PO QHS ferrous sulfate [iron] 325 mg (65 mg iron) tablet 325 mg PO .every other Patient Comments: patient takes every other day sucralfate 1 gram Tablet 1 g PO AC & HS Qty: 120 0RF Patient Comments: family stated it 'changed his personality'. metoprolol succinate 100 mg tablet extended release 24 hr 150 mg PO DAILY Qty: 30 0RF pantoprazole 40 mg tablet,delayed release (DR/EC) 40 mg PO BID Qty: 180 0RF Discharge Instructions Referrals: Rafiq El MD [Primary Care Provider] - (Follow-up within 7 days of discharge please ) Activity:: Activity as Tolerated Equipment/Supplies:: No Equipment Needed Diet:: heart healthy Discharge Orders Discharge Orders: Discharge Order (Routine); Ordered 08/23/24 Ordered By: Roxana Burrell DS: Summary Time Spent with Patient providing and/or coordinating discharge services: Greater than 30 minutes Status at Discharge Functional status at discharge: independent ambulation Overall status at discharge: patient is progressing back to baseline Mental Status: mental status grossly normal Speech and Movement: speech and movement normal Mood: congruent mood Affect: normal affect Quality:SDOH Health Related Social Needs: Health related social needs feeling lonely/isolated (Z 60.8) Health related social needs details Pt is demonstratin g some confusion, reports he was independent at home. Health related social needs details: Pt is demonstrating some confusion, reports he was independent at home. Exam Narrative Exam Narrative: Fatigued appearing 83 years old , hard of hearing older gentleman , calm , laying in bed but in no acute distress on room air, awake, alert, appears to be oriented to person, place, heart regular rate rhythm, lungs coarse to auscult ation to LLL, , abdomen soft, non-tender, non-distended, moves all 4 ext , trace edema to lower ext. Psych Mental Status: mental status grossly normal Speech and Movement: speech and movement normal Mood: congruent mood Affect: normal affect DS: Data Vitals/I&O Vitals and I&O: Vital Signs Temperature 36.5 C 08/23/24 07:38 Temperature Source Temporal Artery Scan 08/23/24 07:38 Pulse 88 08/23/24 07:38 Pulse Rhythm Regular 08/22/24 16:29 Pulse 76 08/22/24 16:01 Respiratory Rate 16 08/23/24 07:38 Respiratory Effort Normal, Non-Labored 08/22/24 16:29 Respiratory Depth Normal 08/22/24 16:29 Respiratory Pattern Normal 08/22/24 16:29 Blood Pressure 102/69 08/23/24 07:38 Blood Pressure Mean 80 08/23/24 07:38 Blood Pressure Position Sitting 08/22/24 11:39 Pulse Oximetry 95 08/23/24 07:38 Oxygen Delivery Method Room Air 08/23/24 07:38 Oxygen Flow Rate 0 08/23/24 07:38 Pain Level 0 08/23/24 07:38 Comment patient ambulated to bathroom and back 08/23/24 03:07 Comment 2.5L, transfusion end 08/22/24 13:31 Intake & Output 08/22/24 08/23/24 08/23/24 23:59 11:59 23:59 Intake Total 370 / 370 625 / 625 Balance 370 / 370 625 / 625 Weight 75.841 kg Intake: IV 170 / 170 40 / 40 Oral 200 / 200 220 / 220 Blood Product 365 / 365 Rbc Leuko Reduced Unit 365 / 365 [id number] Other: Urine Appearance Clear Comment voided in toilet voided in toilet Stool Size Small Stool Characteristics Formed Data Completed and Pending Labs on day of discharge: Labs from last 24 hours 08/23/24 08/22/24 08/22/24 06:06 21:35 20:04 WBC 24.82 H 26.81 H* RBC 2.81 L 2.34 L Hgb 8.2 L 6.9 L* Hct 25.8 L 22.2 L MCV 92 95 MCH 29.2 29.5 MCHC 31.8 L 31.1 L D RDW 16.8 H 17.2 H Plt Count 85 L 89 L MPV 10.8 10.0 Immature Gran % 0.0 Neutrophils % 62.0 Lymphocytes % 26.0 Monocytes % 0.0 Eosinophils % 0.0 Basophils % 0.0 Other Cells % 12 Nucleated RBC % 2.0 H Absolute Neutrophils 15.39 H Absolute Lymphocytes 6.45 H Absolute Monocytes 0.00 L Absolute Eosinophils 0.00 Absolute Basophils 0.00 RBC Morphology Normal Sodium 144 Potassium 3.7 Chloride 109 H Carbon Dioxide 27.0 Anion Gap 8.0 BUN 34 H Creatinine 0.8 Est GFR (CKD-EPI 2020) 86.73 Glucose 113 H Calcium 8.6 Troponin I Urine Color Urine Clarity Urine pH Ur Specific [place] Urine Protein Urine Ketones Urine Blood Urine Nitrite Urine Bilirubin Urine Urobilinogen Ur Leukocyte Esterase Urine Glucose ABO/Rh B Positive Antibody Screen NEGATIVE Crossmatch See Detail 08/22/24 08/22/24 08/22/24 16:04 14:39 13:35 WBC RBC Hgb 7.4 L Hct 23.6 L MCV MCH MCHC RDW Plt Count MPV Immature Gran % Neutrophils % Lymphocytes % Monocytes % Eosinophils % Basophils % Other Cells % Nucleated RBC % Absolute Neutrophils Absolute Lymphocytes Absolute Monocytes Absolute Eosinophils Absolute Basophils RBC Morphology Sodium Potassium Chloride Carbon Dioxide Anion Gap BUN Creatinine Est GFR (CKD-EPI 2020) Glucose Calcium Troponin I 27 Urine Color Yellow Urine Clarity Clear Urine pH 5.5 Ur Specific [place] 1.015 Urine Protein Trace Urine Ketones Negative Urine Blood Negative Urine Nitrite Negative Urine Bilirubin Negative Urine Urobilinogen 1.0 H Ur Leukocyte Esterase Negative Urine Glucose Negative ABO/Rh Antibody Screen Crossmatch 08/22/24 14:39 Blood Blood Culture - Pending 08/22/24 12:30 Blood Blood Culture - Pending Preliminary micro results at discharge 08/22/24 14:39 Blood Blood Culture - Pending 08/22/24 12:30 Blood Blood Culture - Pending [facility] All Active Problems Hypoxic respiratory failure (Acute) Mesothelioma (Acute) Anemia (Chronic) Sepsis (Acute) Severe anemia (Acute) On deep vein thrombosis (DVT) prophylaxis (Acute) CKD (chronic kidney disease) stage 3, GFR 30-59 ml/min (Acute) Impaired instrumental activities of daily living (Acute) Cognitive and behavioral changes (Acute) Pleural effusion (Acute) Recurrent gastrointestinal hemorrhage (Acute) Pneumothorax, iatrogenic (Acute) Atrial fibrillation (Chronic) Myelodysplastic syndrome (Chronic) Anemia (Chronic) Encounter for blood transfusion (Acute) Anemia (Chronic) H/O mechanical aortic valve replacement (Chronic) Diverticulosis of colon without diverticulitis (Chronic) Upper GI bleed (Acute) 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 ear (Acute) Sensorineural hearing loss (SNHL) of right ear with restricted hearing of left ear (Acute) Sensorineural hearing loss of combined sites, bilateral (Acute 08/03/16) Medical History Palliative care patient Elevated troponin level not due to acute coronary syndrome DNR (do not resuscitate) Not sure about intubation, +treat, +transfer, +abx, +IV fluids Advanced care planning/counseling discussion Palliative care encounter Atrial flutter Prosthetic cardiac valve vegetation Intracranial hemorrhage Discharge planning issues diverticulosis adenoma colon polyp Prosthetic Aortic Valve Overweight Hearing loss bilat Surgical History History of thoracentesis (~02/2024) H/O prosthetic aortic valve replacement redo of aortic valve hernia/hydrocele repair Appendectomy Aortic valve replaced Social History Smoking/Tobacco Use Status: Current-Occasional Smoking risk assessment performed?: Yes Alcohol Intake: current Alcohol Intake frequency: holidays/special occasions only Alcohol type: wine Drug use: Never Substance use type: does not use Housing: house Do you feel safe at home: Yes Do you feel safe in your relationship?: Yes Time Spent with Patient Time Spent with Patient: >85 minutes Time was spent: preparing to see the patient(eg.review tests), obtaining and/or reviewing separately otained hiistory, ordering medications,tests, procedures, referring, communicating with other health intensive care nurse, indepentently interpreting results, counseling the patient and care coordination
[2024-08-23] MEDS: levoFLOXacin 750 MG/150 ML BAG 100 MG IVPB (14:13)
[2024-08-23] MEDS: Normal Saline 100 ML 30 ML (14:13)
--- NOTE | 2024-08-23 14:54 | CMDISCH_ITS ---
Date of service: 08/23/24 Time of Service: 14:54 LACE Index Scoring Tool Questions: Length of Stay (in days): 1 Was the patient admitted via the E.D.?: Yes Comorbidities: Any Tumor and Liver or Renal Disease E.D. Visits: 5 Answers: Total Score: 13 Risk of Readmission: High Risk Care Management Discharge Plan Reason for Hospitalization: anemia Discharge Plan: Abrahan will be discharged home with a resumption of home health nursing. He will follow up with his community providers and plan of care and transport with family. Patient/Family Education Needs: Review of discharge instructions, limitations, follow up plan and discuss Ask Me Three Services Needed at Discharge: Home Health Care Services SDOH Health Related Social Needs: Health related social needs feeling lonely/isolated (Z 60.8) Health related social needs details Pt is demonstratin g some confusion, reports he was independent at home. Health related social needs details: Pt is demonstrating some confusion, reports he was independent at home.
--- NOTE | 2024-08-23 16:04 | NT_ITS ---
PT Notes Visit Reasons: severe anemia,pneumonia HEATER OPERATOR HELPER Roxana cancelled order as of this afternoon. No skilled services provided for this episode of care.
--- NOTE | 2024-08-23 16:04 | PT.INNT ---
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 No skilled services provided for this episode of care.
[2024-08-23 16:05] VITALS: BP 102/72; TEMP 36.4; O2SAT 95
== END 2024-08-23 16:25 | disposition home health service (06) ==
LOC: ER 16:03 → MS 16:16
PROVIDERS: Admitting Provider Family Medicine; Emergency Provider Physician Assistant; PCP Family Medicine; Responsible Provider Nurse Practitioner Acute Care; Visit Provider Family Medicine
DX: D46.9 Myelodysplastic syndrome, unspecified (principal); J18.9 Pneumonia, unspecified organism; J96.01 Acute respiratory failure with hypoxia; I51.7 Cardiomegaly; J90 Pleural effusion, not elsewhere classified; N18.31 Chronic kidney disease, stage 3a; R41.89 Other symptoms and signs involving cognitive functions and awareness; Z79.899 Other long term (current) drug therapy; Z95.2 Presence of prosthetic heart valve; R39.15 Urgency of urination; Z66 Do not resuscitate; I95.9 Hypotension, unspecified; J92.9 Pleural plaque without asbestos; N18.30 Chronic kidney disease, stage 3 unspecified; I48.91 Unspecified atrial fibrillation; F03.90 Unspecified dementia, unspecified severity, without behavioral disturbance, psychotic disturbance, mood disturbance, and anxiety
CPT/HCPCS: 00123; 36415; 36430; 71275; 74177; 80048; 80053; 83690; 84145; 85027; 86850; 86900; 86901; 86920; 87040; 93005; 96361; 96365; 96366; 99285; 81003; 83605; 83880; 84484; 85014; 85018; 85025; 86140; 93010; 99223; 99239; G0378; J1956; J3490; P9016

== ENCOUNTER 2024-08-29 08:00 | Outpatient (RCR) | payer MEDICARE, SELFPAY ==
[2024-08-15 07:47] LABS: Absolute Basophil Count 0.01 10^3/uL (0.0-0.2); Basophils % 0.2 %; HCT 26.4 % (40.0-50.0); HGB 7.7 g/dL (13.5-17.5); MCH 27.8 pg (27.0-33.0); MCHC 29.2 % (32.0-36.0); MCV 95 fL (80-95); MPV 9.9 fL (8.0-11.0); Platelet Count 114 10^3/uL (130-400); RBC 2.77 10^6/uL (4.36-5.78); RDW 18.6 % (11.8-14.1); RDW-SD 63.4 fL; WBC 4.69 10^3/uL (4.4-10.8)
[2024-08-15 07:59] LABS: Absolute Lymphocyte Count 1.03 10^3/uL (1.2-3.4); Absolute Monocyte Count 0.05 10^3/uL (0.1-0.8); Absolute Neutrophil Count 3.56 10^3/uL (1.2-6.7); Atypical Lymphocytes % 1 %
[2024-08-15 08:00] LABS: Diff Comment Manual Differential; Other Cells % 1; Polychromasia Present
[2024-08-15 08:04] LABS: ALT 14 U/L (16-63); AST 21 U/L (15-37); Albumin 2.6 g/dL (3.4-5.0); Alkaline Phosphatase 89 U/L (46-116); Anion Gap 6.7 mmol/L (3-11); BUN 27 mg/dL (7-18); Bilirubin, Total 1.6 mg/dL (0.2-1.0); CO2 28.3 mmol/L (21.0-32.0); Calcium 8.7 mg/dL (8.5-10.1); Chloride 109 mmol/L (98-107); Estimated GFR 73.76 (mL/min/1.73m2); Glucose 143 mg/dL (74-106); Potassium 3.6 mmol/L (3.5-5.1); Sodium 144 mmol/L (136-145); Total Protein 6.2 g/dL (6.4-8.2)
[2024-08-15 08:55] VITALS: BP 116/71; PULSE 75; RESP 18; TEMP 36; O2SAT 97
[2024-08-15 09:10] VITALS: BP 146/85; PULSE 75; RESP 18; TEMP 36.1; O2SAT 98
[2024-08-15 09:33] VITALS: BP 145/79; PULSE 76; RESP 20; TEMP 35.9; O2SAT 97
[2024-08-15] MEDS: Normal Saline Flush 10 ML SYR IVP (09:53)
[2024-08-15 10:06] VITALS: BP 154/87; PULSE 75; RESP 18; TEMP 36.2; O2SAT 100
[2024-08-15 11:00] VITALS: BP 159/74; PULSE 76; RESP 18; TEMP 36.1; O2SAT 98
[2024-08-18] VITALS (11 sets, daily range): BP systolic 103–134; BP diastolic 65–85; PULSE 68–82; RESP 18–20; TEMP 36.5–36.8; O2SAT 96–99
[2024-08-18 07:05] LABS: HCT 23.2 % (40.0-50.0); MCHC 29.3 % (32.0-36.0); MCV 96 fL (80-95); MPV 10.7 fL (8.0-11.0); Platelet Count 114 10^3/uL (130-400); RBC 2.43 10^6/uL (4.36-5.78); RDW 18.1 % (11.8-14.1); RDW-SD 61.8 fL; WBC 9.54 10^3/uL (4.4-10.8)
[2024-08-18 07:18] LABS: Absolute Lymphocyte Count 1.72 10^3/uL (1.2-3.4); Absolute Monocyte Count 0.19 10^3/uL (0.1-0.8); Absolute Neutrophil Count 7.35 10^3/uL (1.2-6.7); Other Cells % 3
[2024-08-18 07:19] LABS: Diff Comment Manual Differential; RBC Morphology Normal
[2024-08-18 07:20] LABS: ALT 12 U/L (16-63); AST 22 U/L (15-37); Albumin 2.5 g/dL (3.4-5.0); Alkaline Phosphatase 87 U/L (46-116); Anion Gap 7.1 mmol/L (3-11); BUN 37 mg/dL (7-18); Bilirubin, Total 1.5 mg/dL (0.2-1.0); CO2 26.9 mmol/L (21.0-32.0); CREATININE 1.1 mg/dL (0.70-1.30); Calcium 8.9 mg/dL (8.5-10.1); Chloride 110 mmol/L (98-107); Estimated GFR 65.79 (mL/min/1.73m2); Glucose 133 mg/dL (74-106); Potassium 3.8 mmol/L (3.5-5.1); Sodium 144 mmol/L (136-145); Total Protein 5.9 g/dL (6.4-8.2)
[2024-08-18 08:05] LABS: HGB 6.8 g/dL (13.5-17.5)
[2024-08-18] MEDS: Darbepoetin 300 MCG SYR SC (09:24)
[2024-08-18] MEDS: Normal Saline Flush 10 ML SYR IVP (09:27)
[2024-08-22] VITALS (8 sets, daily range): BP systolic 98–118; BP diastolic 61–77; PULSE 53–79; RESP 20–32; TEMP 36.1–36.4; O2SAT 92–96
[2024-08-22 07:55] LABS: Abs Immature Grans 1.18 10^3/uL (0.0-0.06); MCH 27.8 pg (27.0-33.0); MCHC 28.7 % (32.0-36.0); MCV 97 fL (80-95); MPV 10.8 fL (8.0-11.0); Platelet Count 120 10^3/uL (130-400); RBC 2.09 10^6/uL (4.36-5.78); RDW 18.9 % (11.8-14.1); RDW-SD 61.5 fL
[2024-08-22 08:07] LABS: ALT 17 U/L (16-63); AST 24 U/L (15-37); Albumin 2.3 g/dL (3.4-5.0); Alkaline Phosphatase 91 U/L (46-116); Anion Gap 4.9 mmol/L (3-11); BUN 39 mg/dL (7-18); CO2 27.1 mmol/L (21.0-32.0); CREATININE 1.2 mg/dL (0.70-1.30); Calcium 8.7 mg/dL (8.5-10.1); Chloride 109 mmol/L (98-107); Estimated GFR 59.26 (mL/min/1.73m2); Glucose 136 mg/dL (74-106); Sodium 141 mmol/L (136-145); Total Protein 5.8 g/dL (6.4-8.2)
[2024-08-22 08:33] LABS: HGB 5.8 g/dL (13.5-17.5); WBC 27.34 10^3/uL (4.4-10.8)
[2024-08-22 08:34] LABS: Absolute Lymphocyte Count 6.29 10^3/uL (1.2-3.4); Absolute Monocyte Count 0.82 10^3/uL (0.1-0.8); Absolute Neutrophil Count 18.32 10^3/uL (1.2-6.7); Atypical Lymphocytes % 4 %; Bands % 1 %; HCT 20.2 % (40.0-50.0); Metamyelocytes % 1; Other Cells % 6
[2024-08-22 08:35] LABS: Anisocytosis 1+; Polychromasia Present
[2024-08-22 09:04] LABS: Diff Comment Manual Differential
[2024-08-22] MEDS: Normal Saline Flush 10 ML SYR IVP (12:08)
[2024-08-23 11:45] VITALS: BP 107/46; PULSE 84; RESP 24; TEMP 36.2; O2SAT 92
[2024-08-23 12:01] VITALS: BP 110/60; PULSE 79; RESP 23; TEMP 36.1; O2SAT 93
[2024-08-23 12:30] VITALS: BP 116/61; PULSE 79; RESP 20; TEMP 36.1; O2SAT 88
[2024-08-25] VITALS (11 sets, daily range): BP systolic 87–120; BP diastolic 56–76; PULSE 69–90; RESP 19–22; TEMP 36.6–37.1; O2SAT 95–99
[2024-08-25] MEDS: Normal Saline Flush 10 ML SYR IVP (07:30)
[2024-08-25 07:37] LABS: Abs Immature Grans 2.03 10^3/uL (0.0-0.06); MCH 29.7 pg (27.0-33.0); MCV 96 fL (80-95); Platelet Count 90 10^3/uL (130-400); RBC 2.19 10^6/uL (4.36-5.78); RDW 17.9 % (11.8-14.1); RDW-SD 56.9 fL
[2024-08-25 07:52] LABS: ALT 16 U/L (16-63); AST 33 U/L (15-37); Albumin 2.3 g/dL (3.4-5.0); Alkaline Phosphatase 87 U/L (46-116); Anion Gap 10.5 mmol/L (3-11); BUN 42 mg/dL (7-18); Bilirubin, Total 1.1 mg/dL (0.2-1.0); CO2 24.5 mmol/L (21.0-32.0); CREATININE 1.2 mg/dL (0.70-1.30); Calcium 8.6 mg/dL (8.5-10.1); Chloride 107 mmol/L (98-107); Estimated GFR 59.26 (mL/min/1.73m2); Glucose 112 mg/dL (74-106); Sodium 142 mmol/L (136-145); Total Protein 5.7 g/dL (6.4-8.2)
[2024-08-25 08:02] LABS: Absolute Lymphocyte Count 18.58 10^3/uL (1.2-3.4); Atypical Lymphocytes % 0 %; Bands % 1 %
[2024-08-25 08:03] LABS: Metamyelocytes % 2; Other Cells % 1
[2024-08-25 08:04] LABS: Diff Comment Manual Differential
[2024-08-25 08:06] LABS: Hypochromasia 1+; Polychromasia Present
[2024-08-25 08:08] LABS: MPV 10.6 fL (8.0-11.0)
[2024-08-25 08:18] LABS: WBC 37.91 10^3/uL (4.4-10.8)
[2024-08-25 08:19] LABS: HGB 6.5 g/dL (13.5-17.5)
[2024-08-29 07:35] LABS: Abs Immature Grans 3.95 10^3/uL (0.0-0.06); MCH 29.7 pg (27.0-33.0); MCHC 30.4 % (32.0-36.0); MCV 98 fL (80-95); MPV 10.7 fL (8.0-11.0); Platelet Count 73 10^3/uL (130-400); RBC 1.72 10^6/uL (4.36-5.78); RDW 18.6 % (11.8-14.1); RDW-SD 57.3 fL
[2024-08-29] MEDS: Normal Saline Flush 10 ML SYR IVP (07:57)
[2024-08-29 07:59] LABS: ALT 26 U/L (16-63); AST 52 U/L (15-37); Albumin 2.3 g/dL (3.4-5.0); Alkaline Phosphatase 83 U/L (46-116); Anion Gap 9.7 mmol/L (3-11); BUN 49 mg/dL (7-18); Bilirubin, Total 1.3 mg/dL (0.2-1.0); CO2 24.3 mmol/L (21.0-32.0); CREATININE 1.7 mg/dL (0.70-1.30); Calcium 8.6 mg/dL (8.5-10.1); Chloride 109 mmol/L (98-107); Estimated GFR 39.02 (mL/min/1.73m2); Glucose 118 mg/dL (74-106); Potassium 4.1 mmol/L (3.5-5.1); Sodium 143 mmol/L (136-145); Total Protein 5.3 g/dL (6.4-8.2)
[2024-08-29 08:27] LABS: HGB 5.1 g/dL (13.5-17.5)
[2024-08-29 08:28] LABS: Absolute Lymphocyte Count 14.12 10^3/uL (1.2-3.4); Absolute Neutrophil Count 43.66 10^3/uL (1.2-6.7); Bands % 7 %; HCT 16.8 % (40.0-50.0)
[2024-08-29 08:29] LABS: Diff Comment Manual Differential; Metamyelocytes % 3; Other Cells % 7; RBC Morphology Normal
[2024-08-29 08:33] VITALS: BP 106/73; PULSE 68; RESP 20; TEMP 36.1; O2SAT 92
[2024-08-29 08:53] VITALS: BP 93/69; PULSE 85; RESP 20; TEMP 36.3; O2SAT 96
[2024-08-29 09:16] VITALS: BP 89/63; PULSE 82; RESP 20; TEMP 36.3; O2SAT 98
[2024-08-29 09:49] VITALS: BP 107/66; PULSE 74; RESP 21; TEMP 36.7; O2SAT 95
[2024-08-29 10:40] VITALS: BP 95/62; PULSE 91; RESP 20; TEMP 36.9; O2SAT 98
== END 2024-09-03 23:59 | disposition home or self-care (01) ==
LOC: INF 08:00
PROVIDERS: Internal Medicine Hematology & Oncology; PCP Family Medicine; Visit Provider Family Medicine
DX: K92.2 Gastrointestinal hemorrhage, unspecified (principal); D46.9 Myelodysplastic syndrome, unspecified; D50.9 Iron deficiency anemia, unspecified; D47.2 Monoclonal gammopathy
CPT/HCPCS: 36415; 36430; 80053; 86850; 86900; 86901; 86920; 86945; 96372; 85025; 86644; J0881; P9016

== ENCOUNTER 2024-08-29 10:51 | Inpatient (IN) | payer MEDICARE, SELFPAY ==
[2024-08-29] VITALS (30 sets, daily range): BP systolic 90–120; BP diastolic 35–83; PULSE 73–114; RESP 16–24; TEMP 36.1–39.7; O2SAT 94–99
--- NOTE | 2024-08-29 11:09 | W.ED.GENAD ---
Discharge Plan Disposition Patient Disposition: Admit to [facility] Condition: Stable Discharge Details Clinical Impression: Leukocytosis, Anemia Primary Care Provider: Rafiq El ED Provider: Chong Eduardo Home Meds and New Rx's Prescriptions: No Action benzonatate 100 mg capsule 100 - 200 mg PO TID PRN (Reason: cough) Qty: 30 4RF escitalopram oxalate 10 mg tablet 10 mg PO DAILY risperidone 1 mg tablet 1 mg PO DIRECTED Rx Instructions: x1 tab QAM X2 tabs QHS acetaminophen 650 mg tablet extended release 650 mg PO DIRECTED cannabidoil (CBD) 1 inch topical 5X/DAY PRN tamsulosin 0.4 mg capsule 0.4 mg PO QHS ferrous sulfate [iron] 325 mg (65 mg iron) tablet 325 mg PO .every other Patient Comments: patient takes every other day sucralfate 1 gram Tablet 1 g PO AC & HS Qty: 120 0RF Patient Comments: family stated it 'changed his personality'. metoprolol succinate 100 mg tablet extended release 24 hr 150 mg PO DAILY Qty: 30 0RF pantoprazole 40 mg tablet,delayed release (DR/EC) 40 mg PO BID Qty: 180 0RF levofloxacin 750 mg tablet 750 mg PO DAILY Qty: 4 0RF guaifenesin [Mucinex] 600 mg tablet extended release 12hr 600 mg PO BID Qty: 10 0RF HPI General Mode of arrival: wheelchair. Date/Time Provider Initiated Documentation: 08/29/24 10:51. Limitations to Documentation: no limitations. Information obtained by: patient. History of Present Illness 83 year old M presents to the emergency department with the chief complaint of high wbc, described as moderate, Patient started experiencing this day(s) (1) and it has been constant. No relieving factors improve symptom(s), No exacerbating factors reported . Patient notes denies cough and fever/chills. Patient did receive the following treatments prior to arrival, none Related Data Home Medications ?Medication ?Instructions ?Recorded ?Confirmed ferrous sulfate 325 mg (65 mg 325 mg PO .every other 11/22/23 08/22/24 iron) tablet (iron) metoprolol succinate 100 mg 150 mg (1.5 x 100 mg) PO DAILY #30 12/01/23 08/22/24 tablet,extended release 24 hr tabs pantoprazole 40 mg tablet,delayed 40 mg PO BID #180 tabs 12/01/23 08/22/24 release sucralfate 1 gram tablet 1 g PO AC & HS #120 tabs 12/01/23 08/22/24 benzonatate 100 mg capsule 100 - 200 mg (1 - 2 x 100 mg) PO 07/13/24 08/22/24 TID PRN cough #30 caps risperidone 1 mg tablet 1 mg PO DIRECTED 07/28/24 08/22/24 acetaminophen 650 mg 650 mg PO DIRECTED 07/31/24 08/22/24 tablet,extended release cannabidoil (CBD) 1 inch topical 5X/DAY PRN 07/31/24 08/22/24 tamsulosin 0.4 mg capsule 0.4 mg PO QHS 07/31/24 08/22/24 escitalopram oxalate 10 mg tablet 10 mg PO DAILY 08/21/24 08/22/24 guaifenesin 600 mg tablet, 600 mg PO BID #10 tabs 08/23/24 extended release 12 hr (Mucinex) levofloxacin 750 mg tablet 750 mg PO DAILY #4 tabs 08/23/24 Previous Rx's ?Medication ?Instructions ?Recorded metoprolol succinate 100 mg 150 mg (1.5 x 100 mg) PO DAILY #30 12/01/23 tablet,extended release 24 hr tabs pantoprazole 40 mg tablet,delayed 40 mg PO BID #180 tabs 12/01/23 release sucralfate 1 gram tablet 1 g PO AC & HS #120 tabs 12/01/23 benzonatate 100 mg capsule 100 - 200 mg (1 - 2 x 100 mg) PO 07/13/24 TID PRN cough #30 caps guaifenesin 600 mg tablet, 600 mg PO BID #10 tabs 08/23/24 extended release 12 hr (Mucinex) levofloxacin 750 mg tablet 750 mg PO DAILY #4 tabs 08/23/24 Allergies Allergy/AdvReac Type Severity Reaction Status Date / Time ampicillin Allergy Skin Rash Verified 07/13/24 11:09 ceftriaxone Allergy Skin Rash Verified 07/13/24 11:09 PEACH SKINS AdvReac Other (See Uncoded 07/09/24 16:10 Comment) General Stated Complaint: GenMedical WILBERT: 3 Review of Systems All systems reviewed & are unremarkable except as noted in HPI and below Constitutional Constitutional: Denies chills, Denies fever(s) and Reports weakness Cardiovascular Cardiovascular: Denies chest pain and Denies dyspnea Respiratory Respiratory: Denies cough and Denies dyspnea Gastrointestinal Gastrointestinal: Denies abdominal pain, Denies nausea and Denies vomiting Neurologic Neurologic: Reports weakness Psychiatric Psychiatric: Denies depression Exam Const General: no acute distress Orientation: alert [facility] Head: normal to inspection Ears: external ears normal General nose exam: external nose normal Mouth: moist mucous membranes Eyes General: appearance normal, both eyes and all related structures Neck Neck: normal visual inspection Resp Effort & Inspection: normal respiratory effort and able to speak in complete sentences Auscultation: clear to auscultation bilaterally Cardio Rate: regular rate GI Palpation: soft and nontender Skin General skin exam: no rashes or lesions noted Neuro General: patient alert and patient oriented x3 Extrem General: normal to inspection Psych Mental Status: mental status grossly normal Course Vital Signs Vital signs: Vital Signs Temperature 37.1 C 08/29/24 10:55 Pulse 114 H 08/29/24 10:55 Respiratory Rate 18 08/29/24 10:55 Blood Pressure 95/35 L 08/29/24 10:55 Pulse Oximetry 97 08/29/24 10:55 Temperature 37.1 C 08/29/24 10:55 Pulse 114 H 08/29/24 10:55 Respiratory Rate 18 08/29/24 10:55 Blood Pressure 95/35 L 08/29/24 10:55 Pulse Oximetry 97 08/29/24 10:55 Lab/Test Results Lab/Test Results: 08/29/24 11:02 Blood Blood Culture - Pending 08/29/24 11:02 Blood Blood Culture - Pending Laboratory Tests Range/Units 08/29/24 11:07 Crossmatch See Detail Medical Decision Making 83-year-old male with a history of myelodysplastic syndrome and frequent transfusions for anemia comes in from the transfusion room after he received 1 unit of packed red cells and on CBC today his white count was 64 so he was referred here. He was admitted a week ago for elevated white count and pneumonia and finished levofloxacin. He says that he still feels generally weak. He denies any fevers, shortness of breath, chest pain, headache. He says yesterday he slipped in the bathroom and landed on his buttocks. Did not hit his head or loss of consciousness. He denies any headache, neck pain, back pain, no abdominal pain. His hemoglobin today was 5.1 as well so we will give another transfusion check procalcitonin, lactate, blood cultures, chest x-ray inflammatory markers and urinalysis and reassess. Lactate 3.7, mild elevation CRP, sed rate negative. X-ray shows continued left-sided loculation which I suspect could be infected. Will discuss with hospitalist for admission for IV antibiotics. He has a skin rash allergy to ampicillin and ceftriaxone listed, after discussion with the hospitalist will trial Zosyn and stop if he develops any symptoms. Differential Diagnosis Differential Diagnosis: Anemia, sepsis, myelodysplastic syndrome Quality:SDOH Health Related Social Needs: Health related social needs lonely/isolated Health related social needs details Pt is demonstrating some confusion, reports he was independent at home. PFSH All Active Problems (Updated 08/29/24 @ 13:24 by Chong Eduardo MD) Anemia (Chronic) Leukocytosis (Acute) Mesothelioma (Acute) Anemia (Chronic) CKD (chronic kidney disease) stage 3, GFR 30-59 ml/min (Acute) Pleural effusion (Acute) Recurrent gastrointestinal hemorrhage (Acute) Pneumothorax, iatrogenic (Acute) Atrial fibrillation (Chronic) Anemia (Chronic) Encounter for blood transfusion (Acute) Anemia (Chronic) H/O mechanical aortic valve replacement (Chronic) Diverticulosis of colon without diverticulitis (Chronic) Upper GI bleed (Acute) Sensorineural hearing loss (SNHL) of right ear with restricted hearing of left ear (Acute) Sensorineural hearing loss of combined sites, bilateral (Acute 08/03/16) Medical History Palliative care patient Elevated troponin level not due to acute coronary syndrome DNR (do not resuscitate) Not sure about intubation, +treat, +transfer, +abx, +IV fluids Advanced care planning/counseling discussion Palliative care encounter Atrial flutter Prosthetic cardiac valve vegetation Intracranial hemorrhage Discharge planning issues diverticulosis adenoma colon polyp Prosthetic Aortic Valve Overweight Hearing loss bilat Surgical History History of thoracentesis (~02/2024) H/O prosthetic aortic valve replacement redo of aortic valve hernia/hydrocele repair Appendectomy Aortic valve replaced Social History Smoking/Tobacco Use Status: Current-Occasional Tobacco Type: cigarettes Smoking risk assessment performed?: Yes Alcohol Intake: current Alcohol Intake frequency: holidays/special occasions only Alcohol type: wine Drug use: Never Substance use type: does not use Housing: house Do you feel safe at home: Yes Do you feel safe in your relationship?: Yes
[2024-08-29 11:54] LABS: COVID-19 PCR Negative (Negative); Influenza A PCR Negative (Negative); Influenza B PCR Negative (Negative); RSV PCR Negative (Negative); Source Nasopharynx
[2024-08-29 11:55] LABS: ESR < 1 mm/hr (0-20); Lactate 3.7 mmol/L (<or=2.0)
[2024-08-29 12:08] LABS: C-Reactive Protein 1.34 mg/dL (<or=0.5)
[2024-08-29 12:11] LABS: INR 1.6 (0.9-1.1); PTT Activated 23.9 sec (20.6-30.2); Prothrombin Time 15.2 sec (9.1-11.1)
--- NOTE | 2024-08-29 12:48 | DI.RAD_ITS ---
Exam(s) XR CHEST 2V PA LATERAL EXAM: XR CHEST 2V PA LATERAL CLINICAL HISTORY: ?pneumonia TECHNIQUE: 2D digital imaging was performed of the chest. Three images were obtained. AP and lateral views were obtained. COMPARISON: CR XR CHEST 2V PA LATERAL from 03/23/2024 CR XR CHEST 2V PA LATERAL from 06/13/2024 CR,XR XR PORTABLE CHEST AP from 07/09/[address] CHEST PE ABD PELVIS W from 08/22/2024 FINDINGS: Overall, there is no significant change in appearance of the chest compared to the prior examination. MEDIASTINUM: Normal. HEART: Normal. There is an aortic valve prosthesis. PULMONARY VASCULATURE: Normal. LUNGS: Opacities are seen in the lungs, left greater than right. No new infiltrates are present. PLEURAL SPACE: There are stable bilateral pleural effusions. The left pleural effusion again appears loculated. No pneumothorax. Pleural plaques are again seen. BONE:Within normal limits for the patient's age. Sternal wires are in place. OTHER FINDINGS:Normal. IMPRESSION: 1. No significant change in appearance of the chest x-ray since 06/13/[address] scan from 08/22/2024. 2. No new infiltrates are seen. DATA REPOSITORY: RADIATION DOSE DELIVERED:
--- NOTE | 2024-08-29 13:29 | W.PM.HP.N ---
Date of service: 08/29/24 Time of Service: 13:30 Assessment and Plan Assessment and plan (1) Leukocytosis: Status: Acute Assessment and plan: With his hsitory of Myelodysplastic syndrome and WBC > 64 K- not meeting sepsis criteria On vancomycin and pippercillin Blood and urine cultures pending (2) Severe anemia: Assessment and plan: last hgb available 5.1 , next result pending Platelets 74 -- No report of acute bleeding source, on weekly blood transfusion at the infusion center - discussed questionable refractory anemia last admission with family Transfuse if Hgb < 7 Serial CBC's (3) CKD (chronic kidney disease) stage 3, GFR 30-59 ml/min: Status: Acute Assessment and plan: Stable will continue to monitor (4) Atrial fibrillation: Status: Chronic Assessment and plan: On home dose metroprolol succ. 100mg daily (5) H/O mechanical aortic valve replacement: Status: Chronic (6) Myelodysplastic syndrome: History of Present Illness History of Present Illness Chief Complaint: increased WBC Narrative: This 83-year-old gentleman with past medical history including A-fib not on anticoagulation, myelodysplastic disorder, palliative care patient, frequent blood transfusions presented to the ED from the infusion center for evaluation of H&H at 5.1 and WBC >64 and platelets at 74. The patient was non-hypoxic, afebrile and hemodynamically stable on presentation. Imaging chest XR showed no acute change from images obtained on 08/22/24; Cr was around baseline. The patient received 2 units packed red blood cells, vancomycin and zosyn. The patient was admitted to the medical surgical floor for ongoing antibiotic therapy pending blood culture results.UA reflex was ordered and pending. Denied fever, chills, dizziness, chest pain, abdominal pain , nausea, vomiting, dysuria.Reported melena with minimal hematochezia. DNR/DNI as per [facility]. Review of Systems All systems reviewed & are unremarkable except as noted in HPI and below PFSH All Active Problems (Updated 08/29/24 @ 13:24 by Chong Eduardo MD) Anemia (Chronic) Leukocytosis (Acute) Mesothelioma (Acute) Anemia (Chronic) CKD (chronic kidney disease) stage 3, GFR 30-59 ml/min (Acute) Pleural effusion (Acute) Recurrent gastrointestinal hemorrhage (Acute) Pneumothorax, iatrogenic (Acute) Atrial fibrillation (Chronic) Anemia (Chronic) Encounter for blood transfusion (Acute) Anemia (Chronic) H/O mechanical aortic valve replacement (Chronic) Diverticulosis of colon without diverticulitis (Chronic) Upper GI bleed (Acute) Sensorineural hearing loss (SNHL) of right ear with restricted hearing of left ear (Acute) Sensorineural hearing loss of combined sites, bilateral (Acute 08/03/16) Medical History Palliative care patient Elevated troponin level not due to acute coronary syndrome DNR (do not resuscitate) Not sure about intubation, +treat, +transfer, +abx, +IV fluids Advanced care planning/counseling discussion Palliative care encounter Atrial flutter Prosthetic cardiac valve vegetation Intracranial hemorrhage Discharge planning issues diverticulosis adenoma colon polyp Prosthetic Aortic Valve Overweight Hearing loss bilat Surgical History History of thoracentesis (~02/2024) H/O prosthetic aortic valve replacement redo of aortic valve hernia/hydrocele repair Appendectomy Aortic valve replaced Social History Smoking/Tobacco Use Status: Current-Occasional Tobacco Type: cigarettes Smoking risk assessment performed?: Yes Alcohol Intake: current Alcohol Intake frequency: holidays/special occasions only Alcohol type: wine Drug use: Never Substance use type: does not use Housing: house Do you feel safe at home: Yes Do you feel safe in your relationship?: Yes Meds Allergies and Home Medications Allergies Allergy/AdvReac Type Severity Reaction Status Date / Time ampicillin Allergy Skin Rash Verified 07/13/24 11:09 ceftriaxone Allergy Skin Rash Verified 07/13/24 11:09 PEACH SKINS AdvReac Other (See Uncoded 07/09/24 16:10 Comment) Home Medications ?Medication ?Instructions ?Recorded ?Confirmed ?Type ferrous sulfate 325 mg (65 mg 325 mg PO .every other 11/22/23 08/29/24 History iron) tablet (iron) pantoprazole 40 mg tablet,delayed 40 mg PO BID #180 tabs 12/01/23 08/29/24 Rx release sucralfate 1 gram tablet 1 g PO AC & HS #120 tabs 12/01/23 08/29/24 Rx benzonatate 100 mg capsule 100 - 200 mg (1 - 2 x 100 mg) PO 07/13/24 08/29/24 Rx TID PRN cough #30 caps risperidone 1 mg tablet 1 mg PO DIRECTED 07/28/24 08/29/24 History acetaminophen 650 mg 650 mg PO DIRECTED 07/31/24 08/29/24 History tablet,extended release cannabidoil (CBD) 1 inch topical 5X/DAY PRN 07/31/24 08/29/24 History escitalopram oxalate 10 mg tablet 10 mg PO DAILY 08/21/24 08/29/24 History metoprolol succinate 100 mg 100 mg PO DAILY 08/29/24 08/29/24 History tablet,extended release 24 hr Exam Narrative Exam Narrative: hard of hearing older gentleman looking of stated age , laying in bed but in no acute distress on 1.5 l of oxygen but open mouth breathing , awake, alert, appears to be oriented to person, place, heart regular rate rhythm, lungs coarse to auscultation to LLL > RLL, with decreased right base , abdomen soft, non-tender, non-distended, moves all 4 ext Results Labs 08/29/24 16:13 Labs: Laboratory Results - last 24 hr 08/29/24 08/29/24 11:14 11:35 ESR < 1 PT 15.2 H INR 1.6 H APTT 23.9 VBG Lactate 3.7 H* C-Reactive Protein 1.34 H COVID-19 Source Nasopharynx SARS-CoV-2 (PCR) Negative Influenza Type A (PCR) Negative Influenza Type B (PCR) Negative RSV (PCR) Negative ABO/Rh B Positive Antibody Screen NEGATIVE Crossmatch See Detail Last Vital Signs Temp 36.5 C 08/29/24 13:15 Pulse 79 08/29/24 13:15 Resp 16 08/29/24 13:15 BP 104/71 08/29/24 13:15 Pulse Ox 96 08/29/24 13:15 Time Spent Time spent with Patient: >75 minutes Time was spent: preparing to see the patient(eg.review tests), obtaining and/or reviewing separately otained hiistory, ordering medications,tests, procedures, referring, communicating with other health residential care facility manager, indepentently interpreting results, counseling the patient and care coordination
[2024-08-29] MEDS: VANCOMYCIN/WATER (PEG) 1 GM/200 ML BAG IVPB (13:35)
[2024-08-29 14:10] LABS: Bilirubin Negative (Negative); Blood Negative (Negative); Clarity Clear (Clear); Glucose Negative (Negative); Ketones Negative (Negative); Leukocyte Esterase Negative (Negative); Nitrite Negative (Negative); pH 5.5 (5-8)
[2024-08-29] MEDS: PIPERACILLIN/TAZO 4.5 GM in Normal Saline 100 ML IVPB ×2 (14:55→21:03)
--- NOTE | 2024-08-29 15:50 | NUR.NOTE ---
Nursing Note: Escorted patient up to med surg. Blood transfusion completed per TAR shortly before going upstairs, VS as documented. Patient did not offer any complaint except pain in his behind. Noted to have sacral pressure injury when turned and placed on hover mat before transport. Updates on completed blood and pressure injury given to Shannan TRONCOSO on Med Surg.
--- NOTE | 2024-08-29 16:07 | W.PC.ACHO ---
Registration Status: ADM IN Primary Language: Preferred Language: Romanian ED Information & Data Chief Complaint GenMedical 08/29/24 11:46 Chief Complaint GenMedical 08/29/24 11:14 Triage Note pt recently had pneumonia 08/29/24 10:55 and was on abx, home health heard crackles yesterday. today went for 2 units RBC, he received 1 unit and then WBC flagged as very high. family concerned for progression of chromic illness and would like answers about this as well. pt also fell yesterday but reports did not hit head. a few days of abd pain and dark tarry stool Medical / Surgical History (Last Reviewed 08/23/24 @ 14:03 by Natalee Cantu NP) Severe anemia Myelodysplastic syndrome 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 ear Palliative care patient Elevated troponin level not due to acute coronary syndrome DNR (do not resuscitate) Advanced care planning/counseling discussion Palliative care encounter Atrial flutter Prosthetic cardiac valve vegetation Intracranial hemorrhage Discharge planning issues diverticulosis adenoma colon polyp Prosthetic Aortic Valve Overweight Hearing loss (Last Reviewed 08/23/24 @ 14:03 by Natalee Cantu NP) History of thoracentesis (~02/2024) H/O prosthetic aortic valve replacement redo of aortic valve hernia/hydrocele repair Appendectomy Aortic valve replaced Most Recent Vital Signs Temperature 36.8 C 08/29/24 15:35 Pulse 82 08/29/24 15:35 Pulse 84 08/29/24 12:01 Respiratory Rate 24 08/29/24 15:35 Respiratory Effort Normal 08/29/24 11:46 Respiratory Depth Normal 08/29/24 11:46 Respiratory Pattern Normal 08/29/24 11:46 Blood Pressure 116/78 08/29/24 15:35 Blood Pressure Mean 70 08/29/24 12:01 Pulse Oximetry 94 08/29/24 15:35 Oxygen Delivery Method Room Air 08/29/24 15:35 Oxygen Flow Rate 0 08/29/24 15:35 Allergies ampicillin Allergy (Verified 07/13/24 11:09) Skin Rash ceftriaxone Allergy (Verified 07/13/24 11:09) Skin Rash PEACH SKINS Adverse Reaction (Uncoded 07/09/24 16:10) Other (See Comment) MAKES MOUTH PUCKER IV IV Catheter Type [Antecubital] Peripheral IV IV Catheter Gauge [Antecubital 18 ] Diet Orders Category Date Time Status Heart Healthy Eating [DIET] Nutrition 08/29/24 Dinner Active Diagnostics 08/29/24 08/29/24 08/29/24 Range/Units 14:03 13:07 13:05 WBC Pending RBC Pending Hgb Pending Hct Pending MCV Pending MCH Pending MCHC Pending RDW Pending Plt Count Pending MPV Pending Immature Gran % Pending Neutrophils % Pending Lymphocytes % Pending Monocytes % Pending Eosinophils % Pending Basophils % Pending Absolute Neutrophils Pending Absolute Lymphocytes Pending Absolute Monocytes Pending Absolute Eosinophils Pending Absolute Basophils Pending ESR (0-20) mm/hr PT (9.1-11.1) sec INR (0.9-1.1) APTT (20.6-30.2) sec VBG Lactate (<or=2.0) mmol/L C-Reactive Protein (<or=0.5) mg/dL Urine Color Cancelled Yellow (Yellow) Urine Clarity Cancelled Clear (Clear) Urine pH Cancelled 5.5 (5-8) Ur Specific Lexa Cancelled 1.020 (1.005-1.025) Urine Protein Cancelled Trace (Neg-Trace) mg/dL Urine Ketones Cancelled Negative (Negative) mg/dL Urine Blood Cancelled Negative (Negative) Urine Nitrite Cancelled Negative (Negative) Urine Bilirubin Cancelled Negative (Negative) Urine Urobilinogen Cancelled 1.0 H (Up to 0.2) mg/dL Ur Leukocyte Esterase Cancelled Negative (Negative) Urine Glucose Cancelled Negative (Negative) mg/dL COVID-19 Source SARS-CoV-2 (PCR) (Negative) Influenza Type A (PCR) (Negative) Influenza Type B (PCR) (Negative) RSV (PCR) (Negative) ABO/Rh Antibody Screen Crossmatch 08/29/24 08/29/24 Range/Units 11:35 11:14 WBC RBC Hgb Hct MCV MCH MCHC RDW Plt Count MPV Immature Gran % Neutrophils % Lymphocytes % Monocytes % Eosinophils % Basophils % Absolute Neutrophils Absolute Lymphocytes Absolute Monocytes Absolute Eosinophils Absolute Basophils ESR < 1 (0-20) mm/hr PT 15.2 H (9.1-11.1) sec INR 1.6 H (0.9-1.1) APTT 23.9 (20.6-30.2) sec VBG Lactate 3.7 H* (<or=2.0) mmol/L C-Reactive Protein 1.34 H (<or=0.5) mg/dL Urine Color (Yellow) Urine Clarity (Clear) Urine pH (5-8) Ur Specific Lexa (1.005-1.025) Urine Protein (Neg-Trace) mg/dL Urine Ketones (Negative) mg/dL Urine Blood (Negative) Urine Nitrite (Negative) Urine Bilirubin (Negative) Urine Urobilinogen (Up to 0.2) mg/dL Ur Leukocyte Esterase (Negative) Urine Glucose (Negative) mg/dL COVID-19 Source Nasopharynx SARS-CoV-2 (PCR) Negative (Negative) Influenza Type A (PCR) Negative (Negative) Influenza Type B (PCR) Negative (Negative) RSV (PCR) Negative (Negative) ABO/Rh B Positive Antibody Screen NEGATIVE Crossmatch See Detail 08/29/24 11:40 Blood Culture - Pending Blood 08/29/24 11:35 Blood Culture - Pending Blood Intake and Output - 24 Hour Total 08/29/24 10:51 thru 08/29/24 15:35 Intake Total 500 Balance 500 Weight 72.575 kg Intake: IV 100 Blood Product 400 Unit 400 Falls Risk Assessment Contributing Factors Confusion 08/29/24 15:16 Gait Evaluation W/no contributing factors 08/29/24 15:16 Cognition Cognitive impairment 08/29/24 15:16 Fall Total Score 28 08/29/24 15:16 Level of Risk Moderate Risk 08/29/24 15:16 Problems (Last Reviewed 08/23/24 @ 14:03 by Natalee Cantu NP) Leukocytosis (Acute) CKD (chronic kidney disease) stage 3, GFR 30-59 ml/min (Acute) Atrial fibrillation (Chronic) H/O mechanical aortic valve replacement (Chronic) Notes 08/29/24 15:50 Nursing Notes by Senait Hawkins Nursing Note: Escorted patient up to med surg. Blood transfusion completed per TAR shortly before going upstairs, VS as documented. Patient did not offer any complaint except pain in his behind. Noted to have sacral pressure injury when turned and placed on hover mat before transport. Updates on completed blood and pressure injury given to Shannan TRONCOSO on Med Surg. Initialized on 08/29/24 15:50 - END OF NOTE v v v v v v v v v Sending and/or Receiving Nurses: Please use comment section below to note any information pertinent to the patient hand-off not included above. Information / Comments: Pt brought to floor and settled into bed by OSMAN and this RN. This RN was advised of PI on coccyx by ED nurse. OPitiview dressing applied to area. Pt had slight smearing BM on assessment. Stool was noted to be very dark and tarry with noted dark red blood mixed in. Provider notified of this finding. Awaiting response Report received from: KEELY Sapp RN
[2024-08-29 16:25] LABS: Abs Immature Grans 3.47 10^3/uL (0.0-0.06); HCT 21.4 % (40.0-50.0); MCH 29.1 pg (27.0-33.0); MCHC 30.8 % (32.0-36.0); MCV 94 fL (80-95); MPV 10.6 fL (8.0-11.0); Platelet Count 54 10^3/uL (130-400); RBC 2.27 10^6/uL (4.36-5.78); RDW 17.2 % (11.8-14.1); RDW-SD 53.3 fL
[2024-08-29 16:50] LABS: Absolute Monocyte Count 6.87 10^3/uL (0.1-0.8); Absolute Neutrophil Count 29.05 10^3/uL (1.2-6.7); Anisocytosis 1+; Bands % 1 %; Diff Comment Manual Differential; Metamyelocytes % 1; Myelocytes % 2; Polychromasia Present
[2024-08-29 16:52] LABS: Absolute Lymphocyte Count 13.73 10^3/uL (1.2-3.4); Atypical Lymphocytes % 3 %
[2024-08-29 16:53] LABS: Other Cells % 3
[2024-08-29 16:55] LABS: HGB 6.6 g/dL (13.5-17.5); WBC 52.82 10^3/uL (4.4-10.8)
[2024-08-29] MEDS: Pantoprazole 40 MG VIAL IVP (20:45)
[2024-08-29] MEDS: Normal Saline Flush 10 ML SYR IVP (20:50)
[2024-08-30] VITALS (9 sets, daily range): BP systolic 107–120; BP diastolic 57–79; PULSE 74–95; RESP 18–24; TEMP 36.1–36.7; O2SAT 95–99
[2024-08-30] MEDS: PIPERACILLIN/TAZO 4.5 GM in Normal Saline 100 ML IVPB ×3 (03:00→13:46)
[2024-08-30 07:44] LABS: HCT 25.9 % (40.0-50.0); HGB 8.6 g/dL (13.5-17.5); MCH 30.4 pg (27.0-33.0); MCHC 33.2 % (32.0-36.0); MCV 92 fL (80-95); RBC 2.83 10^6/uL (4.36-5.78); RDW 16.5 % (11.8-14.1); RDW-SD 50.9 fL
[2024-08-30] MEDS: Normal Saline Flush 10 ML SYR IVP ×4 (07:49→13:45)
[2024-08-30 07:57] LABS: Anion Gap 8.3 mmol/L (3-11); BUN 50 mg/dL (7-18); CO2 24.7 mmol/L (21.0-32.0); CREATININE 1.3 mg/dL (0.70-1.30); Calcium 8.3 mg/dL (8.5-10.1); Chloride 113 mmol/L (98-107); Estimated GFR 53.84 (mL/min/1.73m2); Glucose 100 mg/dL (74-106); Magnesium 1.8 mg/dL (1.8-2.4); Potassium 3.7 mmol/L (3.5-5.1); Sodium 146 mmol/L (136-145)
[2024-08-30 08:41] LABS: WBC 59.96 10^3/uL (4.4-10.8)
[2024-08-30 08:43] LABS: Platelet Count 42 10^3/uL (130-400)
[2024-08-30 08:44] LABS: Absolute Lymphocyte Count 17.99 10^3/uL (1.2-3.4); Absolute Neutrophil Count 32.38 10^3/uL (1.2-6.7); Bands % 5 %
[2024-08-30 08:46] LABS: Metamyelocytes % 2; Myelocytes % 2
[2024-08-30 08:47] LABS: Diff Comment Manual Differential; Other Cells % 12
[2024-08-30 08:48] LABS: Anisocytosis 1+
--- NOTE | 2024-08-30 08:56 | PDOC.CMIN ---
Date of service: 08/30/24 Time of Service: 11:49 Care Management Initial Assmt Initial Assessment Reason for Hospitalization: Leukocytosis, severe anemia, thrombocytopenia Functional Status/Living Situation Patient Presentation: Umesh was lying in his bed, and his daughter was in the room, at the time CM arrived. Umesh presented to the ED from infusion services, due to an elevated WBC. [place] daughter - Jenna, was speaking for him today, he was asleep and she did not want him to be woken. CM requested a PT and palliative consult. Per PT, Jenna declined a PT eval for Umesh, with reasoning he is too weak to be woken and he does not need it. Jenna states, she and her brother (Umesh) spend days with their parents; at night they he has paid caregivers that come 5 out of 7 nights. When the caregivers are not there, Jenna or Umesh are there. Jenna states, he has all the assistive equipment he needs including a ramp, being installed today. CM educated Jenna on HH recommendations that come from PT, Jenna does not think her dad needs PT, at this time. CM will continue to follow. Town of Residence: [place] Resides with: Spouse (Jessy ) Significant Other/Family: Local (Daughter Jenna is local and checks in. Abrahan also has a daughter in [place] and a son in [place]. ) Caregiver/Guardian: Paid night time caregivers, Jenna and son - Umesh for support. Natural Supports: [place] Employment Status: Retired Instrumental Activities of Daily Living (ADLs): Independent Medications Medication Management: No Issues/Barriers identified Physical Functioning/Mobility Assistive Device: has a cane which he uses on occasion Advance Directives Advance Directives: Do you have an Advance Directive: Y 10/04/20, 08:56 AD On File at [facility]: Y 10/04/20, 08:56 Date Asked 08/22/24 08/22/24, 13:22 AD Date Reviewed 08/22/24 08/22/24, 16:16 COLST On File at [facility] No 11/24/23, 16:54 COLST Date Scanned Code Status Resuscitation Status DNR/DNI Portal Pt does not currently have a portal and education provided: Yes Insurance Coverage/Financial Issues Insurance: Medicare Part A & B - [id number] [facility] - [id number] Care Team Visit Care Team Role Provider Type Roxana Burrell APRN MD [facility] STAFF PHYSICIAN Rafiq El MD Primary Care Provider NON-[facility] STAFF PHYSICIAN Lawrence Alamo Other Providers OTHER Chong Eduardo MD Emergency Provider [facility] STAFF PHYSICIAN Umesh Smith MD Admit Provider [facility] STAFF PHYSICIAN Attending Provider Discharge Potential Discharge Needs: PT Evaluation and PCP F/U Appt Anticipated Barriers to Discharge: Medical Status Patient/Family Education Needs: Review discharge instructions, discuss Ask Me Three Transportation: Private vehicle Plan: Anticipate, Umesh will be discharged home, a resumption of RN, when medically cleared. He will follow up with his community providers, palliative, infusion therapy (Wednesday and Wednesday's, weekly), plan of care and transport with family. CM will follow and continue to assess for discharge planning concerns. Social Determinants of Health Screening Social Determinants of health last assessed in clinic: 08/30/24 Will the Patient Participate in the Screening?: Yes Do you worry about having a steady place to live?: no Problems where you live: no known problems In the past 12 months, have you had to go without electric, gas, oil or water in your home?: no 1. Within the past 12 months, we worried whether our food would run out before we got money to buy more.: Never true 2. Within the past 12 months, the food we bought just didn't last and we didn't have money to get more.: Never true Has lack of transportation kept you from medical appointments or from doing things needed for daily living?: no Has anyone in your life made you feel unsafe or unsupported?: no How hard is it for you to pay for the very basics like food, housing, medical care, and heating? Would you say it is:: Not hard at all Do you want help finding or keeping work or a job?: I do not need or want help If for any reason you need help with day-to-day activities such as bathing, preparing meals, shopping, managing finances, etc., do you get the help you need?: I don?t need any help How often do you feel lonely or isolated from those around you?: Never Do you speak a language other than [place] at home?: No Does the patient want assistance with any of the above?: No PFSH All Active Problems (Updated 08/30/24 @ 10:23 by Roxana Burrell APRN) Severe sepsis (Acute) Abnormal chest CT (Acute) Fever (Acute) Anemia (Chronic) Leukocytosis (Acute) Mesothelioma (Acute) Anemia (Chronic) CKD (chronic kidney disease) stage 3, GFR 30-59 ml/min (Acute) Pleural effusion (Acute) Recurrent gastrointestinal hemorrhage (Acute) Pneumothorax, iatrogenic (Acute) Atrial fibrillation (Chronic) Anemia (Chronic) Encounter for blood transfusion (Acute) Anemia (Chronic) H/O mechanical aortic valve replacement (Chronic) Diverticulosis of colon without diverticulitis (Chronic) Upper GI bleed (Acute) Sensorineural hearing loss (SNHL) of right ear with restricted hearing of left ear (Acute) Sensorineural hearing loss of combined sites, bilateral (Acute 08/03/16) Medical History Palliative care patient Elevated troponin level not due to acute coronary syndrome DNR (do not resuscitate) Not sure about intubation, +treat, +transfer, +abx, +IV fluids Advanced care planning/counseling discussion Palliative care encounter Atrial flutter Prosthetic cardiac valve vegetation Intracranial hemorrhage Discharge planning issues diverticulosis adenoma colon polyp Prosthetic Aortic Valve Overweight Hearing loss bilat Surgical History History of thoracentesis (~02/2024) H/O prosthetic aortic valve replacement redo of aortic valve hernia/hydrocele repair Appendectomy Aortic valve replaced Social History Smoking/Tobacco Use Status: Current-Occasional Tobacco Type: cigarettes Smoking risk assessment performed?: Yes Alcohol Intake: current Alcohol Intake frequency: holidays/special occasions only Alcohol type: wine Drug use: Never Substance use type: does not use Housing: house Do you feel safe at home: Yes Do you feel safe in your relationship?: Yes Readmission Within the Past 30 Days Yes or No: Yes Date of First Admission Date of 1st Admission: 08/22/24 Date of this Admission Date of Admission: 08/29/24 This admission was: Through ED Office Visit Since 1st Admission Have you seen your PCP in the office since discharge?: No Had an appointment Been Scheduled?: Yes Date of Scheduled Appointment: 08/31/24 Speicalist Appointments Have you seen any other specialist since your 1st Admission?: No I. Interview patient and/or Family Difficulty reaching your doctor or getting an office appt?: No Have you had trouble purchasing/ or taking medication?: No Have you had trouble with getting meals at home?: No Did you feel ready for discharge when you left the last time: Yes Were services received that you thought were set up on disch: Yes What services were received?: HH RN weekly infusions Did you call your physician beore you came to the ED?: No Did your physician tell you to come in?: No How do you think you became sick enough to come back?: Im not sure - Daughter Jenna If the patient had a VNA ordered Did the patient have a VNA order?: Yes Did you call the VNA before you came?: No Did the VNA tell you to come to the hospital?: No Do you know if the VNA called your physician?: No ED visits How many ED visits in the past 12 months: 11 Assessment for Readmission Summary of readmission circumstances, based upon interviews: Umesh came in for infusions, who then sent him to ED for anemia Anticipated HH Services Anticipated HH Services at Discharge [facility] Needed, RN.
[2024-08-30] MEDS: Escitalopram 10 MG TAB PO (09:51)
[2024-08-30] MEDS: Metoprolol CR 100 MG TABCR PO (09:51)
[2024-08-30] MEDS: Ferrous Sulfate 325 MG TAB PO (09:51)
[2024-08-30] MEDS: Pantoprazole 40 MG VIAL IVP (09:52)
--- NOTE | 2024-08-30 10:01 | PGE_ITS ---
Date of Service Date of service: 08/30/24 Time of Service: 10:02 Assessment and Plan Assessment and plan (1) Severe sepsis: Status: Acute Assessment and plan: on admission day WBC 64, lactic 3.7 but a febrile with minimal hypotension with SBP 90 Source unknown- lung imaging similar to prior w/o hypoxia or sustained tachypnea despite Hgb of 5.1 Blood Cx pending UA negative as per poin 2, 3, 4 (2) Leukocytosis: Status: Acute Assessment and plan: With his history of Myelodysplastic syndrome and WBC > 64 K- not meeting sepsis criteria on admission now septic w temp 39.7 last night On vancomycin and pippercillin but now febrile Blood cultures negative (3) Fever: Status: Acute Assessment and plan: Fever after admission to the floor - continue treating with PRN acetaminophen (4) Abnormal chest CT: Status: Acute Assessment and plan: As per CT report from 08/29/24 LUNGS: Opacities are seen in the lungs, left greater than right. No new infiltrates are present. PLEURAL SPACE: There are stable bilateral pleural effusions. The left pleural effusion again appears loculated. No pneumothorax. Pleural plaques are again seen. 1. No significant change in appearance of the chest x-ray since 06/13/[address] scan from 08/22/2024. 2. No new infiltrates are seen. On previous CT from 08/22/24: positive for bilateral pleural effusion, loculated on the left and larger than previously and not loculated on the right side. At the time hypoxia resolving with oxygen supplementation and correction of anemia Clinically, previous pneumonia has resolved and it can take an average of 6 weeks to see improvement on imaging Most likely not pneumonia clinically despite WBC at 64 K Pleural fluid sampling not indicated (5) Severe anemia: Assessment and plan: Hgb stable s/p 4PRBC Platelets 74 --now 42 - will continue to monitor No report of acute bleeding source, on weekly blood transfusion at the infusion center - discussed questionable refractory anemia last admission with family Transfuse if Hgb < 7 Serial CBC's (6) CKD (chronic kidney disease) stage 3, GFR 30-59 ml/min: Status: Acute Assessment and plan: Stable will continue to monitor (7) Atrial fibrillation: Status: Chronic Assessment and plan: On home dose metroprolol succ. 100mg daily (8) H/O mechanical aortic valve replacement: Status: Chronic (9) Myelodysplastic syndrome: Assessment and plan: Hx of On bi-weekly blood draw and PRN transfusion Discussed refractory anemia as a possibility with patient and family last admission for severe anemia as pneumonia Subjective Subjective Patient reports: no new complaints, tolerating liquids well, tolerating a regular diet, voiding w/o difficulty, flatus, bowel movement, blood in stool, shortness of breath and fever (08/30 -20:50); denies nausea or vomiting Exam Narrative Exam Narrative: hard of hearing older gentleman looking of stated age , laying in bed but in no acute distress on 1.5 l of oxygen but open mouth breathing , awake, alert, appears to be oriented to person, place, heart regular rate rhythm, lungs coarse to auscultation to LLL > RLL, with decreased right base , abdomen soft, non- tender, non-distended, moves all 4 ext Objective Last Vital Signs Temp 36.7 C 08/30/24 07:31 Pulse 95 H 08/30/24 07:31 Resp 24 08/30/24 07:31 BP 113/79 08/30/24 07:31 Pulse Ox 95 08/30/24 07:31 Laboratory Results - last 24 hr 08/29/24 08/29/24 08/29/24 11:14 11:35 13:05 WBC RBC Hgb Hct MCV MCH MCHC RDW Plt Count MPV Immature Gran % Neutrophils % Band Neutrophils % Lymphocytes % Atypical Lymphs % Monocytes % Eosinophils % Basophils % Metamyelocytes % Myelocytes % Other Cells % Nucleated RBC % Absolute Neutrophils Absolute Lymphocytes Absolute Monocytes Absolute Eosinophils Absolute Basophils RBC Morphology Polychromasia Anisocytosis ESR < 1 PT 15.2 H INR 1.6 H APTT 23.9 VBG Lactate 3.7 H* Sodium Potassium Chloride Carbon Dioxide Anion Gap BUN Creatinine Est GFR (CKD-EPI 2020) Glucose Calcium Magnesium C-Reactive Protein 1.34 H Urine Color Yellow Urine Clarity Clear Urine pH 5.5 Ur Specific [place] 1.020 Urine Protein Trace Urine Ketones Negative Urine Blood Negative Urine Nitrite Negative Urine Bilirubin Negative Urine Urobilinogen 1.0 H Ur Leukocyte Esterase Negative Urine Glucose Negative COVID-19 Source Nasopharynx SARS-CoV-2 (PCR) Negative Influenza Type A (PCR) Negative Influenza Type B (PCR) Negative RSV (PCR) Negative ABO/Rh B Positive Antibody Screen NEGATIVE Crossmatch See Detail 08/29/24 08/29/24 08/29/24 14:03 16:13 19:00 WBC 52.82 H* Cancelled RBC 2.27 L Cancelled Hgb 6.6 L* Cancelled Hct 21.4 L Cancelled MCV 94 D Cancelled MCH 29.1 Cancelled MCHC 30.8 L Cancelled RDW 17.2 H Cancelled Plt Count 54 L Cancelled MPV 10.6 Cancelled Immature Gran % See Differential Neutrophils % 54.0 Band Neutrophils % 1 Lymphocytes % 23.0 Atypical Lymphs % 3 Monocytes % 13.0 Eosinophils % 0.0 Basophils % 0.0 Metamyelocytes % 1 Myelocytes % 2 Other Cells % 3 Nucleated RBC % 4.0 H Absolute Neutrophils 29.05 H Absolute Lymphocytes 13.73 H Absolute Monocytes 6.87 H Absolute Eosinophils 0.00 Absolute Basophils 0.00 RBC Morphology See Below Polychromasia Present Anisocytosis 1+ ESR PT INR APTT VBG Lactate Sodium Potassium Chloride Carbon Dioxide Anion Gap BUN Creatinine Est GFR (CKD-EPI 2020) Glucose Calcium Magnesium C-Reactive Protein Urine Color Cancelled Urine Clarity Cancelled Urine pH Cancelled Ur Specific [place] Cancelled Urine Protein Cancelled Urine Ketones Cancelled Urine Blood Cancelled Urine Nitrite Cancelled Urine Bilirubin Cancelled Urine Urobilinogen Cancelled Ur Leukocyte Esterase Cancelled Urine Glucose Cancelled COVID-19 Source SARS-CoV-2 (PCR) Influenza Type A (PCR) Influenza Type B (PCR) RSV (PCR) ABO/Rh Antibody Screen Crossmatch 08/30/24 07:00 WBC 59.96 H* RBC 2.83 L Hgb 8.6 L D Hct 25.9 L MCV 92 MCH 30.4 MCHC 33.2 D RDW 16.5 H Plt Count 42 L MPV Immature Gran % 0.0 Neutrophils % 49.0 Band Neutrophils % 5 Lymphocytes % 30.0 Atypical Lymphs % Monocytes % 0.0 Eosinophils % 0.0 Basophils % 0.0 Metamyelocytes % 2 Myelocytes % 2 Other Cells % 12 Nucleated RBC % 3.0 H Absolute Neutrophils 32.38 H Absolute Lymphocytes 17.99 H Absolute Monocytes 0.00 L Absolute Eosinophils 0.00 Absolute Basophils 0.00 RBC Morphology See Below Polychromasia Anisocytosis 1+ ESR PT INR APTT VBG Lactate Sodium 146 H Potassium 3.7 Chloride 113 H Carbon Dioxide 24.7 Anion Gap 8.3 BUN 50 H Creatinine 1.3 Est GFR (CKD-EPI 2020) 53.84 Glucose 100 Calcium 8.3 L Magnesium 1.8 C-Reactive Protein Urine Color Urine Clarity Urine pH Ur Specific [place] Urine Protein Urine Ketones Urine Blood Urine Nitrite Urine Bilirubin Urine Urobilinogen Ur Leukocyte Esterase Urine Glucose COVID-19 Source SARS-CoV-2 (PCR) Influenza Type A (PCR) Influenza Type B (PCR) RSV (PCR) ABO/Rh Antibody Screen Crossmatch
--- NOTE | 2024-08-30 11:06 | PT.INNT ---
PT Notes Visit Reasons: Leukocytosis, severe anemia, thrombocytopenia Pt approached for PT evaluation at 10:40am. His daughter was present. She asked what the purpose of the evaluation was . She was informed it was for further assessment of need for assistive devices and functional ability. She declined to have her father participate in the evaluation. She stated he has all the equipment he needs and has 24 hour caregivers at home, bed/chair alarms to alert them and a ramp is being installed for ease of getting in and out of home. PERSONNEL ASSISTANT Roxana Burrell notified as well as KARYNA Hackett, and Care Management. No charge for time spent with daughter. PT available for reConsult if appropriate and agreeable by family.
[2024-08-30] MEDS: VANCOMYCIN/WATER (PEG) 1 GM/200 ML BAG IVPB (11:24)
--- NOTE | 2024-08-30 11:32 | CHAPLAIN ---
Umesh was sleeping when I visited. His daughter was with him. She had spent the night. Umesh lives in [place] with his , Jessy. Their daughter lives in [place] and has been visiting often. They also have a son who is supportive. I will continue to visit.
--- NOTE | 2024-08-30 16:14 | W.PALLCONSUL ---
Date of service: 08/30/24 Time of Service: 14:00 History of Present Illness Narrative: Mr. Gauthier is a 83 y/o M currently hospitalized 2/2 sepsis from unknown source; PMHx sig for MDS, h/o AVR, CVA (2016), CHF, A fib, dementia; present today /[facility], daughter Jenna, son Abrahan Hospital course: this is Abrahan's 2nd admission in 2 weeks 2/2 anemia c/b MDS; presented to infusion on 08/29, labs w/WBC up from 37 to 64, H/H severely low, received 2 units pRBC, presented to ED post infusion, no changes in images concerning for recurrent PNA, febrile; admitted for ongoing management; daughter declined PT consult d/t weakness/fatigue/doesn't need it Recent relevant history: Abrahan has been getting treated for MDS w/transfusions and for greater than a year, he had been stable for a long time; in the last month has had increased symptoms between transfusions, not tolerating 4 day gap and requiring increased units of blood consistently; Abrahan has been eager to continue transfusions, ready on each transfusion day, until this week, when he was considering not coming in on Wednesday. Family Meeting Abrahan has always been determined to do what he can to stay alive, when he had heart surgery when he was 41 he did everything in his power to continue living his life; when he was diagnosed w/MDS he was again determined to do all things; family feels that he would want to continue doing this if he could speak for himself, however they don't think he ever thought about having dementia coinciding with this; is concerned that if she quit on him, he would think she's giving up after all the efforts he put in. he has been weaker the last few weeks, now unable to do the things that previously made him happy, wonder if increased difficulty walking is a sign; unknown source of elevated WBC at this time, blood smear pending to confirm/rule out cancer won't return until Wednesday; no identified infection source, aware that doesn't appear to be PNA, blood cultures pending, wonder if it could be from sore on back side, they did not culture this; not currently draining, sounds like it had been healing appropriately Dementia: he knows his meds and schedule during the day, he is highly suspicious of changes in meds and they worry if they say they're giving him morphine that may scare him. He has periods of thinking people/things on the TV are real and this does scare him; he does forget his son's name occasionally; he does sundown aware he completed an AD in 2013, that was a long time ago and they wonder if it is accurate to his preferences today; it does state that if terminal, hours/days/weeks to live would want to be home and on hospice; they are aware that it does appear that we are at this phase of his illness. would want to give him the opportunity to tell us what he wants, despite that last week he asked his to make decisions for him moving forward; if he didn't want to come in to infusion anymore, they would support that and would prefer hospice (not using hospice word) were brought into home. if he wanted to go home tonight, which he has stated he would want to do, they would support this and again want hospice supports, understanding that leaving tonight would indicate a shift from goal of treatment for MDS to comfort directed care w/no more transfusions. If they want transfusions to continue, recommendation to remain in hospital Abrahan reports he has been in the hospital for 45 days, potentially understands that not congruently; he states he was aware that MDS treatments eventually were going to stop working. if you live you live, or you , indicates he knows that happens to everyone eventually and that it is closer for him now. he is unsure if he would want to re-present for transfusion on Wednesday if it meant going into ED and rehospitalization, he says I don't know two different times Abrahan has been asking for his pants to return home today, several times; today he would like to consider going home; but would like to think abou this with family prior to making decision Assessment and Plan Assessment and plan (1) Severe sepsis: Status: Acute Assessment and plan: unknown source WBC 64 on admission, repeat 52.8 and 59.96 today Blood culture negative, UA negative, lung imaging similar to prior blood smear for leukemia pending, results back likely wednesday currently on Vancomycin and Zosyn febrile today, controlled w/apap (2) Anemia: Status: Chronic Assessment and plan: 2/2 MDS concerns for refractory anemia (3) Leukocytosis: Status: Acute Assessment and plan: significant global climate change analyst last few weeks 08/18: 9.54, 08/22 27.34, 08/25 37.91, 08/29 64.2 concerns for blood reaction d/t chronic infusions vs MDS progression to MDS reviewed w/family (4) GI bleed: Status: Chronic Assessment and plan: unknown source, stool positive today (5) Myelodysplastic syndrome: Assessment and plan: hospitalist reviewed w/manager of case Dr. South: would not be candidate for chemotherapy if leukemia 2/2 GIB, not stable H/H, performance scale and progressing dementia concern for ongoing transfusions also having negative reactions and causing repeat hospitalizations infusion team concerned w/causing harm w/ongoing transfusions, potentially against patient preferences and QoL metrics (6) Discharge planning issues: Assessment and plan: If Abrahan wants to leave today the options are: pivot plan to comfort directed care, no more presenting to hospital/transfusions and remain home, w/hospice referral or leave AMA w/goal of presenting on Wednesday (not recommended) If Abrahan wants to continue treatment w/transfusions would need to remain hospitalized for appropriate standard of care caregivers available at home, son and daughter also willing to provide care (7) Palliative care encounter: Assessment and plan: PC will continue to follow as needed, suspect transition to hospice before next available at end of visit, family including Abrahan to review what he'd like to do today and will let team know once they make a decision called hospice to review POC - likely admitting urgently, recommend same day admission as able (assuming ); please avoid using word hospice in front of Abrahan, Home Health approprpiate (8) Advanced care planning/counseling discussion: Assessment and plan: reviewed concerns w/body rejecting blood products d/t chronic transfusions, MDS developing into untreatable leukemia; reviewed AD preferences, indicate he would want to be home, focus on comfort and go on hospice reviewed options for today and decision making reviewed what to do if requires assistance tonight, option to manage at home or present to ED for sxs management support; hospice likely unable to admit until or Wednesday they would not want him transferred to another hospital reviewed Ethics consult if not comfortable w/POC outlined from care team; may consider Ethics pending decision for transfusions on Wednesday, relayed to team to consider placing consult if he does insist on transfusions spent 50m w/ACP post completion of visit it does sound like family decision to discharge home today; will place hospice referral to start process Review of Systems Narrative: as per HPI pt history limited d/t mental condition PFSH All Active Problems (Updated 08/30/24 @ 17:29 by Natalee Cantu NP) GI bleed (Chronic) Severe sepsis (Acute) Abnormal chest CT (Acute) Fever (Acute) Anemia (Chronic) Leukocytosis (Acute) Mesothelioma (Acute) Anemia (Chronic) CKD (chronic kidney disease) stage 3, GFR 30-59 ml/min (Acute) Pleural effusion (Acute) Recurrent gastrointestinal hemorrhage (Acute) Pneumothorax, iatrogenic (Acute) Atrial fibrillation (Chronic) Anemia (Chronic) Encounter for blood transfusion (Acute) Anemia (Chronic) H/O mechanical aortic valve replacement (Chronic) Diverticulosis of colon without diverticulitis (Chronic) Upper GI bleed (Acute) Sensorineural hearing loss (SNHL) of right ear with restricted hearing of left ear (Acute) Sensorineural hearing loss of combined sites, bilateral (Acute 08/03/16) Medical History Palliative care patient Elevated troponin level not due to acute coronary syndrome DNR (do not resuscitate) Not sure about intubation, +treat, +transfer, +abx, +IV fluids Advanced care planning/counseling discussion Palliative care encounter Atrial flutter Prosthetic cardiac valve vegetation Intracranial hemorrhage Discharge planning issues diverticulosis adenoma colon polyp Prosthetic Aortic Valve Overweight Hearing loss bilat Surgical History History of thoracentesis (~02/2024) H/O prosthetic aortic valve replacement redo of aortic valve hernia/hydrocele repair Appendectomy Aortic valve replaced Social History Smoking/Tobacco Use Status: Current-Occasional Tobacco Type: cigarettes Smoking risk assessment performed?: Yes Alcohol Intake: current Alcohol Intake frequency: holidays/special occasions only Alcohol type: wine Drug use: Never Substance use type: does not use Housing: house Do you feel safe at home: Yes Do you feel safe in your relationship?: Yes Exam Narrative Exam Narrative: General: older adult male, lying w/HOB elevated, family at bedside; HEENT: [place], normocephalic, atraumatic Resp: shallow, tachypnic periods, no acute distress, denies SOB; no accessory muscle use; no audible wheeze or cough Psych: cooperative to guarded, speech clear-garbled, impoverished and loose association thought process, affect indifferent; insight/judgement limited to poor Results Last Vital Signs Temp 98.1 F 08/30/24 07:31 Pulse 95 H 08/30/24 07:31 Resp 24 08/30/24 07:31 BP 113/79 08/30/24 07:31 Pulse Ox 95 08/30/24 07:31 Labs 08/30/24 07:00 08/30/24 07:00 Labs: Laboratory Results - last 24 hr 08/29/24 08/29/24 08/29/24 11:35 16:13 19:00 WBC 52.82 H* Cancelled RBC 2.27 L Cancelled Hgb 6.6 L* Cancelled Hct 21.4 L Cancelled MCV 94 D Cancelled MCH 29.1 Cancelled MCHC 30.8 L Cancelled RDW 17.2 H Cancelled Plt Count 54 L Cancelled MPV 10.6 Cancelled Immature Gran % See Differential Neutrophils % 54.0 Band Neutrophils % 1 Lymphocytes % 23.0 Atypical Lymphs % 3 Monocytes % 13.0 Eosinophils % 0.0 Basophils % 0.0 Metamyelocytes % 1 Myelocytes % 2 Other Cells % 3 Nucleated RBC % 4.0 H Absolute Neutrophils 29.05 H Absolute Lymphocytes 13.73 H Absolute Monocytes 6.87 H Absolute Eosinophils 0.00 Absolute Basophils 0.00 RBC Morphology See Below Polychromasia Present Anisocytosis 1+ Sodium Potassium Chloride Carbon Dioxide Anion Gap BUN Creatinine Est GFR (CKD-EPI 2020) Glucose Calcium Magnesium ABO/Rh B Positive Antibody Screen NEGATIVE Crossmatch See Detail 08/30/24 07:00 WBC 59.96 H* RBC 2.83 L Hgb 8.6 L D Hct 25.9 L MCV 92 MCH 30.4 MCHC 33.2 D RDW 16.5 H Plt Count 42 L MPV Immature Gran % 0.0 Neutrophils % 49.0 Band Neutrophils % 5 Lymphocytes % 30.0 Atypical Lymphs % Monocytes % 0.0 Eosinophils % 0.0 Basophils % 0.0 Metamyelocytes % 2 Myelocytes % 2 Other Cells % 12 Nucleated RBC % 3.0 H Absolute Neutrophils 32.38 H Absolute Lymphocytes 17.99 H Absolute Monocytes 0.00 L Absolute Eosinophils 0.00 Absolute Basophils 0.00 RBC Morphology See Below Polychromasia Anisocytosis 1+ Sodium 146 H Potassium 3.7 Chloride 113 H Carbon Dioxide 24.7 Anion Gap 8.3 BUN 50 H Creatinine 1.3 Est GFR (CKD-EPI 2020) 53.84 Glucose 100 Calcium 8.3 L Magnesium 1.8 ABO/Rh Antibody Screen Crossmatch Time Spent Time Spent with Patient Time Spent(min): 140
[2024-08-30 16:40] LABS: MRSA PCR Negative (Negative)
[2024-08-30] MEDS: Acetaminophen 500 MG TAB 1000 MG PO (17:52)
--- NOTE | 2024-08-30 17:56 | W.PM.DS.N ---
Date of service: 08/30/24 Time of Service: 17:56 DS: Diagnosis Discharge Diagnosis (1) Severe sepsis: Status: Acute (2) Leukocytosis: Status: Acute (3) Fever: Status: Acute (4) Abnormal chest CT: Status: Acute (5) Severe anemia: (6) CKD (chronic kidney disease) stage 3, GFR 30-59 ml/min: Status: Acute (7) Atrial fibrillation: Status: Chronic (8) H/O mechanical aortic valve replacement: Status: Chronic (9) Myelodysplastic syndrome: (10) Discharge planning issues: (11) Palliative care encounter: (12) Advanced care planning/counseling discussion: (13) Anemia: Status: Chronic (14) GI bleed: Status: Chronic Discharge Plan Disposition Patient Disposition: Home Condition: Stable Discharge Details Reason For Visit: Leukocytosis, severe anemia, thrombocytopenia Admit Date/Time: 08/29/24 13:54 Admit Provider: Umesh Smith Attending Provider: Umesh Smith Primary Care Provider: Rafiq El Hospital Course Hospital Course: This 83-year-old gentleman with past medical history including A-fib not on anticoagulation, myelodysplastic disorder, palliative care patient, frequent blood transfusions presented to the ED on 08/29/24 from the infusion center for evaluation of H&H at 5.1 and WBC >64 and platelets at 74. The patient was non-hypoxic, afebrile and hemodynamically stable on presentation. Imaging chest XR showed no acute change from images obtained on 08/22/24; Cr was around baseline. The patient received 2 units packed red blood cells, vancomycin and zosyn. The patient was admitted to the medical surgical floor for ongoing antibiotic therapy. H&H went up 6.6 & 21.4. Another 2 units of PRBC's received for H&H 8.6 & 25.9. UA was negative, blood cultures were negative at 24 hours despite ongoing fever. Discussion with Dr. Pace oncologist conveyed to family members regarding the patient not being a candidate for chemotherapy as per comorbidities, performance standards, ongoing dementia and overall quality of life in the findings of pathology smear confirming acute leukemia. Palliative care discussion with patient and family completed with decision to go home with later admission( next day or 2) to hospice. Family requested discharge tonight and aware that nursing support will not be available tonight. Febrile state discussed with recommendation to stay overnight but without major change in outcome as patient has decided not to come for blood transfusion work-up scheduled on Wednesday09/01/24 at [facility] infusion center. Urgent admission request to hospice discussed and will be placed by Natalee Cantu NP palliative care. Discussed with Dr. Smith. Home Meds and New Rx's Prescriptions: New acetaminophen 500 mg Tablet 1,000 mg PO TID Qty: 30 0RF sulfamethoxazole-trimethoprim [Bactrim DS] 800-160 mg tablet 1 tab PO BID Qty: 14 0RF doxycycline hyclate 100 mg capsule 100 mg PO BID Qty: 14 0RF Continued benzonatate 100 mg capsule 100 - 200 mg PO TID PRN (Reason: cough) Qty: 30 4RF escitalopram oxalate 10 mg tablet 10 mg PO DAILY risperidone 1 mg tablet 1 mg PO DIRECTED Rx Instructions: x1 tab QAM X2 tabs QHS cannabidoil (CBD) 1 inch topical 5X/DAY PRN ferrous sulfate [iron] 325 mg (65 mg iron) tablet 325 mg PO .every other Patient Comments: patient takes every other day metoprolol succinate 100 mg tablet extended release 24 hr 100 mg PO DAILY sucralfate 1 gram Tablet 1 g PO AC & HS Qty: 120 0RF Patient Comments: family stated it 'changed his personality'. pantoprazole 40 mg tablet,delayed release (DR/EC) 40 mg PO BID Qty: 180 0RF Discontinued acetaminophen 650 mg tablet extended release 650 mg PO DIRECTED Discharge Instructions Stand Alone Forms: Nursing Discharge Form Referrals: Rafiq El MD [Primary Care Provider, Medicine] Referral Note: Left voicemail for office to call Umesh back once they are open. Activity:: Activity as Tolerated Equipment/Supplies:: Walker Diet:: As Tolerated Discharge Orders Discharge Orders: Discharge Order (Routine); Ordered 08/30/24 Ordered By: Roxana Burrell DS: Summary Time Spent with Patient providing and/or coordinating discharge services: Greater than 30 minutes Status at Discharge Functional status at discharge: independent ambulation Overall status at discharge: patient is not back to baseline Mental Status: mental status grossly normal Speech and Movement: speech and movement normal Mood: congruent mood Affect: normal affect Quality:SDOH Health Related Social Needs: Health related social needs lonely/isolated Health related social needs details Pt is demonstrating some confusion, reports he was independent at home. Exam Narrative Exam Narrative: hard of hearing older gentleman looking of stated age , laying in bed but in no acute distress , awake, alert, appears to be oriented to person, place, heart regular rate rhythm, lungs coarse to auscultation to LLL > RLL, with decreased right base , abdomen soft, non-tender, non-distended, moves all 4 ext Psych Mental Status: mental status grossly normal Speech and Movement: speech and movement normal Mood: congruent mood Affect: normal affect DS: Data Vitals/I&O Vitals and I&O: Vital Signs Temperature 36.7 C 08/30/24 07:31 Temperature Source Temporal Artery Scan 08/30/24 07:31 Pulse 95 H 08/30/24 07:31 Pulse 84 08/29/24 12:01 Respiratory Rate 24 08/30/24 07:31 Respiratory Effort Normal 08/29/24 15:50 Respiratory Depth Normal 08/29/24 15:50 Respiratory Pattern Normal 08/29/24 15:50 Blood Pressure 113/79 08/30/24 07:31 Blood Pressure Mean 90 08/30/24 07:31 Pulse Oximetry 95 08/30/24 07:31 Oxygen Delivery Method Room Air 08/30/24 07:31 Oxygen Flow Rate 0 08/30/24 07:31 Pain Level 0 08/30/24 13:15 Intake & Output 08/29/24 08/30/24 08/30/24 23:59 11:59 23:59 Intake Total 1110 / 1110 550 / 850 300 / 850 Output Total 200 / 200 450 / 450 Balance 910 / 910 100 / 400 300 / 400 Intake: IV 410 / 410 200 / 500 300 / 500 Blood Product 700 / 700 350 / 350 Rbc Leuko Reduced Unit 300 / 300 [id number] Rbc Leuko Reduced Unit 350 / 350 [id number] Rbc Leuko Reduced Unit 400 / 400 [id number] Output: Urine 200 / 200 450 / 450 Other: Urine Color Light Marcie Urine Appearance Clear Clear Sediment Urine Odor Normal None Comment voided with stool on bedside commode. amount not measured Stool Size Large Moderate Stool Characteristics Black Liquid Black Data Completed and Pending Labs on day of discharge: Labs from last 24 hours 08/30/24 08/30/24 08/29/24 14:35 07:00 19:00 WBC 59.96 H* Cancelled RBC 2.83 L Cancelled Hgb 8.6 L D Cancelled Hct 25.9 L Cancelled MCV 92 Cancelled MCH 30.4 Cancelled MCHC 33.2 D Cancelled RDW 16.5 H Cancelled Plt Count 42 L Cancelled MPV Cancelled Immature Gran % 0.0 Neutrophils % 49.0 Band Neutrophils % 5 Lymphocytes % 30.0 Monocytes % 0.0 Eosinophils % 0.0 Basophils % 0.0 Metamyelocytes % 2 Myelocytes % 2 Other Cells % 12 Nucleated RBC % 3.0 H Absolute Neutrophils 32.38 H Absolute Lymphocytes 17.99 H Absolute Monocytes 0.00 L Absolute Eosinophils 0.00 Absolute Basophils 0.00 RBC Morphology See Below Anisocytosis 1+ Sodium 146 H Potassium 3.7 Chloride 113 H Carbon Dioxide 24.7 Anion Gap 8.3 BUN 50 H Creatinine 1.3 Est GFR (CKD-EPI 2020) 53.84 Glucose 100 Calcium 8.3 L Magnesium 1.8 MRSA (TEM-PCR) Negative Pathology Consult Spec ABO/Rh Antibody Screen Crossmatch 08/29/24 08/29/24 16:13 11:35 WBC RBC Hgb Hct MCV MCH MCHC RDW Plt Count MPV Immature Gran % Neutrophils % Band Neutrophils % Lymphocytes % Monocytes % Eosinophils % Basophils % Metamyelocytes % Myelocytes % Other Cells % Nucleated RBC % Absolute Neutrophils Absolute Lymphocytes Absolute Monocytes Absolute Eosinophils Absolute Basophils RBC Morphology Anisocytosis Sodium Potassium Chloride Carbon Dioxide Anion Gap BUN Creatinine Est GFR (CKD-EPI 2020) Glucose Calcium Magnesium MRSA (TEM-PCR) Pathology Consult Spec Pending ABO/Rh B Positive Antibody Screen NEGATIVE Crossmatch See Detail Preliminary micro results at discharge 08/29/24 11:35 Blood Blood Culture - Preliminary NO GROWTH 24 HOURS 08/29/24 11:40 Blood Blood Culture - Preliminary NO GROWTH 24 HOURS [facility] All Active Problems (Updated 08/30/24 @ 17:50 by Natalee Cantu NP) Dementia (Chronic) GI bleed (Chronic) Severe sepsis (Acute) Abnormal chest CT (Acute) Fever (Acute) Anemia (Chronic) Leukocytosis (Acute) Mesothelioma (Acute) Anemia (Chronic) CKD (chronic kidney disease) stage 3, GFR 30-59 ml/min (Acute) Pleural effusion (Acute) Recurrent gastrointestinal hemorrhage (Acute) Pneumothorax, iatrogenic (Acute) Atrial fibrillation (Chronic) Anemia (Chronic) Encounter for blood transfusion (Acute) Anemia (Chronic) H/O mechanical aortic valve replacement (Chronic) Diverticulosis of colon without diverticulitis (Chronic) Upper GI bleed (Acute) Sensorineural hearing loss (SNHL) of right ear with restricted hearing of left ear (Acute) Sensorineural hearing loss of combined sites, bilateral (Acute 08/03/16) Medical History Palliative care patient Elevated troponin level not due to acute coronary syndrome DNR (do not resuscitate) Not sure about intubation, +treat, +transfer, +abx, +IV fluids Advanced care planning/counseling discussion Palliative care encounter Atrial flutter Prosthetic cardiac valve vegetation Intracranial hemorrhage Discharge planning issues diverticulosis adenoma colon polyp Prosthetic Aortic Valve Overweight Hearing loss bilat Surgical History History of thoracentesis (~02/2024) H/O prosthetic aortic valve replacement redo of aortic valve hernia/hydrocele repair Appendectomy Aortic valve replaced Social History Smoking/Tobacco Use Status: Current-Occasional Tobacco Type: cigarettes Smoking risk assessment performed?: Yes Alcohol Intake: current Alcohol Intake frequency: holidays/special occasions only Alcohol type: wine Drug use: Never Substance use type: does not use Housing: house Do you feel safe at home: Yes Do you feel safe in your relationship?: Yes Time Spent with Patient Time Spent with Patient: >85 minutes Time was spent: preparing to see the patient(eg.review tests), obtaining and/or reviewing separately otained hiistory, ordering medications,tests, procedures, referring, communicating with other health inpatient care manager rn, indepentently interpreting results, counseling the patient and care coordination
--- NOTE | 2024-08-31 12:49 | PDOC.CMPRO ---
Date of service: 08/31/24 Time of Service: 13:23 Care Management Progress Note Progress Note Text Progress Note Text: Per discharge summary, the family requested discharge on night and were aware that nursing support would not be available that night. Palliative provider reportedly discussed with hospitalist, an urgent admission request to hospice. Palliative communicated with hospice regarding the potential admission referral but the family had not accepted hospice services, at this time. Iraj was discharged yesterday evening, after CM had left for the day. Today, Chelsie called this sql report writer, and sounded very upset. She stated, she was under the impression Iraj would have support in the home today, and was now told this would not happen. She stated, dad was lying on the couch at home and in pain, and she is requesting help with pain control. Chelsie states that if no help will be offered, she may have to bring her dad back into the ED, for pain management. CM contacted hospice, and restated Chelsie's concerns. Per hospice, they did not know of the admission/referral for hospice, and therefore the earliest admission could take place is Wednesday. Hospice then directed this sql report writer to palliative. Per palliative, a provider will send in the RX for liquid morphine and will then they will call the family to instruct on it's use, to help the patient be supported within his home which aligns with his goals. CM will update the daughter. CM will continue to follow, as needed. Social Determinants of Health Screening Social Determinants of health last assessed in clinic: 08/31/24 Will the Patient Participate in the Screening?: Yes Do you worry about having a steady place to live?: no Problems where you live: no known problems In the past 12 months, have you had to go without electric, gas, oil or water in your home?: no 1. Within the past 12 months, we worried whether our food would run out before we got money to buy more.: Never true 2. Within the past 12 months, the food we bought just didn't last and we didn't have money to get more.: Never true Has lack of transportation kept you from medical appointments or from doing things needed for daily living?: no Has anyone in your life made you feel unsafe or unsupported?: no How hard is it for you to pay for the very basics like food, housing, medical care, and heating? Would you say it is:: Not hard at all Do you want help finding or keeping work or a job?: I do not need or want help If for any reason you need help with day-to-day activities such as bathing, preparing meals, shopping, managing finances, etc., do you get the help you need?: I don?t need any help How often do you feel lonely or isolated from those around you?: Never Do you speak a language other than [place] at home?: No Does the patient want assistance with any of the above?: No
== END 2024-08-30 19:16 | disposition home or self-care (01) | DRG 872 ==
LOC: ER 13:24 → MS 15:33
PROVIDERS: Admitting Provider Hospitalist; Emergency Provider Emergency Medicine; PCP Family Medicine; Responsible Provider Nurse Practitioner Acute Care; Visit Provider Hospitalist
DX: A41.9 Sepsis, unspecified organism (principal); R65.20 Severe sepsis without septic shock; D46.9 Myelodysplastic syndrome, unspecified; N18.30 Chronic kidney disease, stage 3 unspecified; I48.91 Unspecified atrial fibrillation; Z79.899 Other long term (current) drug therapy; Z95.2 Presence of prosthetic heart valve; Z66 Do not resuscitate; K92.1 Melena; J90 Pleural effusion, not elsewhere classified; C95.00 Acute leukemia of unspecified cell type not having achieved remission; F03.90 Unspecified dementia, unspecified severity, without behavioral disturbance, psychotic disturbance, mood disturbance, and anxiety; H90.3 Sensorineural hearing loss, bilateral; F17.210 Nicotine dependence, cigarettes, uncomplicated
CPT/HCPCS: 00123; 36415; 36430; 80048; 80053; 85027; 85652; 86850; 86900; 86901; 86920; 87040; 87637; 87641; 96365; 96366; 96368; 99285; 71046; 81003; 82270; 83605; 83735; 85025; 85610; 85730; 86140; 99223; 99239; J2470; J2543; J3372; P9016